=== PATIENT | male | born 2000 | race Caucasian/White ===

== ENCOUNTER 2020-04-03 14:32 | Outpatient (REF) | payer OTHER, SELFPAY | END 2020-04-03 14:33 | disposition home or self-care (01) | LOC: HO.HMGCLDS 14:32 | PROVIDERS: PCP Physician Assistant; Visit Provider Internal Medicine | DX: Z20.828 Contact with and (suspected) exposure to other viral communicable diseases (principal) | CPT/HCPCS: C9803; U0003 ==

== ENCOUNTER 2020-04-18 08:23 | Inpatient (IN) | payer OTHER, SELFPAY ==
[2020-04-18 08:55] VITALS: BP 175/64; BP 175/65; PULSE 92; RESP 19; TEMP 36.5; O2SAT 97; BMI 32.5
--- NOTE | 2020-04-18 08:56 | ED_ITS ---
HPI - Psych General Chief Complaint: Psychiatric Symptoms Stated Complaint: phsyc Time Seen by Provider: 04/18/20 08:51 History of Present Illness HPI Narrative: Patient is a 20-year-old male. Presented today after feeling manic. Patient claims that he cannot calm himself down. Claims that when he goes to the mall every gross looking at him. Patient denies any suicidal homicidal ideation. Patient denies any recreational drugs. Been on lithium and Lamictal. Patient was taken off from it. He restarted taking his lithium last night at 600 mg. Denies any focal weakness. No alcohol. From home. Related Data Home Medications Medication Instructions Recorded Confirmed cholecalciferol (vitamin D3) 1 cap PO DAILY 04/18/20 04/18/20 lamotrigine 1 tab PO BID 04/18/20 04/18/20 lithium carbonate 1 cap PO BID 04/18/20 04/18/20 oxcarbazepine 1 tab PO BID 04/18/20 04/18/20 Allergies Allergy/AdvReac Type Severity Reaction Status Date / Time No Known Allergies Allergy Unverified 02/08/20 16:41 [No Known Allergies*] Review of Systems Review of Systems: Constitutional: No Weight loss, No Fever, No Chills, No Night Sweats, No Fatigue, No Malaise ENT/Mouth: No Hearing loss, No Ear Pain, No Nasal Congestion, No Sinus Pain, No Hoarseness, No sore throat, No Rhinorrhea, No Swallowing Difficulty Eyes: No Eye Pain, No Swelling, No Redness, No Foreign Body, No Discharge, No Vision Changes Cardiovascular: No Chest Pain, No SOB, No Dyspnea on Exertion, No Orthopnea, No Edema, No Palpitations Respiratory: No Cough, No Sputum, No Wheezing, No Smoke Exposure, No Dyspnea Gastrointestinal: No Nausea, No Vomiting, No Diarrhea, No Constipation, No abdominal Pain, No Hematochezia, No Melena Genitourinary: no irregular bleeding, No Dysuria, No Urinary Frequency, No Hematuria, No Urinary Incontinence, No Urgency, No Flank Pain, No Urinary Flow Changes, No Hesitancy Musculoskeletal: No joint pain, No Myalgias, No Joint Swelling Skin: No Skin Lesions, No rash Neuro: No Weakness, No Numbness, No Paresthesias, No Loss of Consciousness, No Dizziness, No Headache Psych: No Anxiety/Panic, No Depression, No SI/HI/AH/VH, No Social Issues, Heme/Lymph: No Bruising, No Bleeding,No Lymphadenopathy Endocrine: No Polyuria, No Polydipsia, No Temperature Intolerance [facility] Social History Social History Alcohol intake: unknown Smoking Status: Unknown if ever smoked Use of substances other than those prescribed or required for medical reasons: Unknown Advance Directives: No Advance Directives Information Provided: Yes Physical Exam Vital Signs: Vital Signs: Last Vital Signs Temp 97.9 F 04/18/20 09:14 Pulse 81 04/18/20 09:14 Resp 18 04/18/20 09:14 BP 112/73 04/18/20 09:14 Pulse Ox 98 04/18/20 09:14 Body Mass Index 32.5 Appearance: Alert. Oriented X3. No acute distress. Eyes: Pupils equal, round and reactive to light. ENT: Pharynx normal. Neck: Normal inspection. Neck supple. No lymph nodes noted. No crepitus CVS: Normal heart rate and rhythm. Pulses normal. Normal S1 and S2 Respiratory: No respiratory distress. Breath sounds normal. No Wheezing. No rales Abdomen: Soft and nontender. No rigidity. No distention. good BS x4 Skin: Skin warm and dry. Normal skin color. Normal skin turgor. Extremities: No lower extremity edema. Neurovascular intact to all extremities. No Lacerations. No Rash Neuro: Oriented X 3. No motor deficit. No sensory deficit. Moving all extermities. No slurred speech MDM - Psych MDM Narrative Medical decision making narrative: patient is seen by crisis. Will admit for further evaluation. Labs sent. Currently in stable condition. Restraints Face to Face Assessment: Face to Face Assessment: Current Situation: After assessment of the patient, a review of the pertinent medical record and a discussion with nursing staff, I feel the patient requires a restrain intervention. Reaction To: [] Medical Condition: [] Behavioral State: [] Continued Need: [] Lab Data Result diagrams: 04/18/20 09:45 04/18/20 09:45 Labs: Lab Results 04/18/20 04/18/20 04/18/20 Range/Units 09:45 09:45 09:45 WBC 10.5 (4.8-10.8) X10*3/uL RBC 5.48 (4.60-5.80) X10*6/uL Hgb 15.3 (14.0-18.0) g/dl Hct 46.6 (42-52) % MCV 85.0 (80-98) fL MCH 27.9 (27.0-33.0) pg MCHC 32.8 (31.0-36.0) g/dl RDW 12.8 (11.0-16.0) % Plt Count 259 (160-400) X10*3/uL MPV 11.8 (9.4-12.4) fL Immature Gran % (Auto) 0.3 (0.0-0.4) % Neut % (Auto) 69.2 (45-73) % Lymph % (Auto) 15.6 L (20-40) % [place] % (Auto) 13.4 H (2-11) % Eos % (Auto) 0.9 (0-4) % Baso % (Auto) 0.6 (0-2) % Lymph # (Auto) 1.6 (1.2-4.9) X10*3/uL [place] # (Auto) 1.4 H (0.1-1.2) X10*3/uL Eos # (Auto) 0.1 (0.0-0.4) X10*3/uL Baso # (Auto) 0.1 (0.0-0.2) X10*3/uL Abs Immat Gran (auto) 0.03 (0.00-0.03) X10*3/uL Absolute Neuts (auto) 7.3 (2.0-8.3) X10*3/uL Absolute Nucleated RBC 0.000 (0.0-0.012) X10*3/uL Nucleated RBC % (auto) 0.0 (0.0-0.2) /100WBC Sodium 139 (135-145) mmol/L Potassium 4.2 (3.3-5.1) mmol/l Chloride 107 (96-108) mmol/L Carbon Dioxide 22 (22-29) mmol/L Anion Gap 14 (12-20) BUN 13 (9-16) mg/dL Creatinine 1.01 (0.5-1.4) mg/dL Estim Creat Clear Calc 146.2 Estimated GFR > 60 Random Glucose 113 (60-115) mg/dL Calcium 9.5 (8.4-10.2) mg/dL Total Bilirubin 0.5 (0.0-1.0) mg/dL AST 24 (5-37) U/L ALT 22 (0-40) U/L Alkaline Phosphatase 63 (39-117) U/L Total Protein 7.8 (6.5-8.0) g/dL Albumin 5.1 H (3.5-5.0) g/dL Home 0.17 L (0.60-1.20) mmol/L Ethyl Alcohol mg/dL 04/18/20 Range/Units 09:45 WBC (4.8-10.8) X10*3/uL RBC (4.60-5.80) X10*6/uL Hgb (14.0-18.0) g/dl Hct (42-52) % MCV (80-98) fL MCH (27.0-33.0) pg MCHC (31.0-36.0) g/dl RDW (11.0-16.0) % Plt Count (160-400) X10*3/uL MPV (9.4-12.4) fL Immature Gran % (Auto) (0.0-0.4) % Neut % (Auto) (45-73) % Lymph % (Auto) (20-40) % [place] % (Auto) (2-11) % Eos % (Auto) (0-4) % Baso % (Auto) (0-2) % Lymph # (Auto) (1.2-4.9) X10*3/uL [place] # (Auto) (0.1-1.2) X10*3/uL Eos # (Auto) (0.0-0.4) X10*3/uL Baso # (Auto) (0.0-0.2) X10*3/uL Abs Immat Gran (auto) (0.00-0.03) X10*3/uL Absolute Neuts (auto) (2.0-8.3) X10*3/uL Absolute Nucleated RBC (0.0-0.012) X10*3/uL Nucleated RBC % (auto) (0.0-0.2) /100WBC Sodium (135-145) mmol/L Potassium (3.3-5.1) mmol/l Chloride (96-108) mmol/L Carbon Dioxide (22-29) mmol/L Anion Gap (12-20) BUN (9-16) mg/dL Creatinine (0.5-1.4) mg/dL Estim Creat Clear Calc Estimated GFR Random Glucose (60-115) mg/dL Calcium (8.4-10.2) mg/dL Total Bilirubin (0.0-1.0) mg/dL AST (5-37) U/L ALT (0-40) U/L Alkaline Phosphatase (39-117) U/L Total Protein (6.5-8.0) g/dL Albumin (3.5-5.0) g/dL Home (0.60-1.20) mmol/L Ethyl Alcohol < 10 mg/dL Discharge Plan Discharge Clinical Impression: Bipolar disorder Patient Disposition: Home, Self-Care Prescriptions: No Action oxcarbazepine 300 mg tablet 1 tab PO BID RF: 0 lithium carbonate 300 mg capsule 1 cap PO BID RF: 0 cholecalciferol (vitamin D3) 125 mcg (5,000 unit) capsule 1 cap PO DAILY RF: 0 lamotrigine 100 mg tablet 1 tab PO BID RF: 0
[2020-04-18 09:14] VITALS: BP 112/73; PULSE 81; RESP 18; TEMP 36.6; O2SAT 98
[2020-04-18] MEDS: LORazepam 1 MG TABLET PO (09:27)
[2020-04-18 09:59] LABS: Basophils Absolute Auto 0.1 X10*3/uL (0.0-0.2); Basophils Percent Auto 0.6 % (0-2); Eosinophils Absolute Auto 0.1 X10*3/uL (0.0-0.4); Eosinophils Percent Auto 0.9 % (0-4); Hematocrit 46.6 % (42-52); Hemoglobin 15.3 g/dl (14.0-18.0); Imm Gran Abs Auto 0.03 X10*3/uL (0.00-0.03); Imm Gran Pct Auto 0.3 % (0.0-0.4); Lymphocytes Absolute Auto 1.6 X10*3/uL (1.2-4.9); Lymphocytes Percent Auto 15.6 % (20-40); MANUAL DIFF FLAG NO; Mean Corpuscular HGB Conc 32.8 g/dl (31.0-36.0); Mean Corpuscular Hemoglobin 27.9 pg (27.0-33.0); Mean Platelet Volume 11.8 fL (9.4-12.4); Monocytes Absolute Auto 1.4 X10*3/uL (0.1-1.2); Monocytes Percent Auto 13.4 % (2-11); Neutrophils Absolute Auto 7.3 X10*3/uL (2.0-8.3); Neutrophils Percent Auto 69.2 % (45-73); Platelet Count 259 X10*3/uL (160-400); Red Blood Count 5.48 X10*6/uL (4.60-5.80); Red Cell Distribution Width 12.8 % (11.0-16.0); White Blood Count 10.5 X10*3/uL (4.8-10.8)
[2020-04-18 10:20] LABS: Lithium 0.17 mmol/L (0.60-1.20)
[2020-04-18 10:22] LABS: Ethanol < 10 mg/dL
[2020-04-18 10:27] LABS: Alanine Aminotransferase 22 U/L (0-40); Albumin Level 5.1 g/dL (3.5-5.0); Alkaline Phosphatase 63 U/L (39-117); Anion Gap 14 (12-20); Aspartate Amino Transferase 24 U/L (5-37); Bilirubin Total 0.5 mg/dL (0.0-1.0); Blood Urea Nitrogen 13 mg/dL (9-16); Calcium 9.5 mg/dL (8.4-10.2); Carbon Dioxide 22 mmol/L (22-29); Chloride 107 mmol/L (96-108); Creatinine Clr Calc Pharmacy 146.2; Estimated Glomerular Filt Rate > 60; Glucose Random 113 mg/dL (60-115); Potassium 4.2 mmol/l (3.3-5.1); Sodium 139 mmol/L (135-145); Total Protein 7.8 g/dL (6.5-8.0)
--- NOTE | 2020-04-18 11:11 | PC.NURSE ---
[facility] faxed and called, stated they will not have a clinician for a while, care team notified.
--- NOTE | 2020-04-18 12:29 | MHC.CARE ---
CARE Team met with patient who self presented to the ED with increased giuliana, inpatient psychiatric care is recommended and patient is in agreement. ED providers updated.
[2020-04-18 15:40] LABS: Amphetamine Screen Urine Not Detected (Not Detect); Barbiturates, Urine Not Detected (Not Detect); Benzodiazepines Screen Urine Not Detected (Not Detect); Cannabinoid Screen Urine Not Detected (Not Detect); Cocaine Screen Urine Not Detected (Not Detect); Opiate Screen Urine Not Detected (Not Detect); Phencyclidine Screen Urine Not Detected (Not Detect)
[2020-04-18 16:30] LABS: COVID-19 Test Negative (Negative); IDNOW Serial# 9DD0AD1C
--- NOTE | 2020-04-18 16:32 | PC.NURSE ---
PT calm and cooperative, hyperverbal at times. Pt stating that he wants to get help now before gets as bad as last time . Pt pleasant in conversation, grandiose at times, tangential.
[2020-04-18 17:27] VITALS: BP 123/68; PULSE 66; RESP 20; TEMP 37.1; O2SAT 98
--- NOTE | 2020-04-18 17:50 | PC.NURSE ---
Pt continues calm and cooperative, states he came in today because he needed someone to talk to before chasing the rabbit and ending up here anyway even worse . Pt stating that he wants to get help before he gets worse. Pt understands plan of care as inpatient bedsearch, states he just doesn't want to be put on too many meds and wants help.
--- NOTE | 2020-04-18 19:07 | MHC.CARE ---
Bedsearch Note: CARE team consulted [facility] Access website to determine bed availability for inpt psychiatric admissions and contacted hospitals which indicated that they had open beds at some point throughout today within a 50mile radius. There are no beds available at external facilities. There is a bed available on [facility], however due to unit acuity and pt's hx during previous admissions, it was relayed to CARE team that a larger discussion will need to take place in order to finalize a plan of care. At this time, pt will remain in ED awaiting facility acceptance, bedsearch will be continued tomorrow. Pt is aware that he will not be admitted to any facilities this evening and continues to express that he is help-seeking and demonstrating awareness of how he has decompensated in the past compared to his current presentation.
--- NOTE | 2020-04-18 19:08 | PC.NURSE ---
Patient out of room, wandering in POD, mood pleasant, affect congruent to mood, denied distress, will continue to monitor.
[2020-04-18] MEDS: Lithium Carbonate 300 MG CAPSULE PO (20:06)
[2020-04-18] MEDS: OXcarbazepine 300 MG TABLET PO (20:06)
[2020-04-18] MEDS: lamoTRIgine 100 MG TABLET PO (20:06)
--- NOTE | 2020-04-18 20:32 | PC.NURSE ---
Patient compliant with his HS PO medication, currently on phone talking to his brother, patient coherent, intact thought process, but hyper-verbal, denied distress, will continue to monitor.
[2020-04-18 21:30] VITALS: BP 146/59; PULSE 75; RESP 20; TEMP 36.4; O2SAT 96
[2020-04-18] MEDS: LORazepam 1 MG TABLET 2 MG PO (21:40)
--- NOTE | 2020-04-18 21:43 | PC.NURSE ---
Patient hyper active, restless, provider notified/ordered Ativan 2 mg/administered as ordered/pending effect, will continue to monitor.
--- NOTE | 2020-04-18 22:06 | PC.NURSE ---
Patient extremely restless/energetic, provided headphone with music to calm down, observed jumping on his bed, dancing, exercising, moving mattress here and there, when asked how he is doing, answered with his thumps up. Will continue to monitor.
[2020-04-18] MEDS: LORazepam 2 MG/ML VIAL IM (22:27)
--- NOTE | 2020-04-18 22:29 | PC.NURSE ---
Patient requested for stronger medication to control his anger and energy before it gets worse, provider notified patient's behavior, medication request, and Hx of being unpredictable, violent, and psychotic. Provider ordered Ativan 2 mg IM/administered as ordered/patient accepted in [facility], will continue to monitor.
--- NOTE | 2020-04-18 23:29 | MHC.CARE ---
Pt's mother returned CARE team phone call from earlier today by clinician that evaluated pt. Pt's mother shared that her primary concern is pt's onset of grandiosity over the past week or so. Pt's mother reported that pt's psychiatrist had been tapering pt off [place], being completed off the medication over 2 weeks ago. When the psychiatrist spoke with pt's mother, she reported that the psychiatrist said that they may not have caught it in time with regards to the onset of a manic episode, despite reintroducing the medication at a lower dose to attempt to stabilize pt's mood. Pt's mother reported that, as far as she knows, pt has been consistent with his therapy sessions and has been compliant with his medications as prescribed and works well with both his therapist and his psychiatrist, and had been doing great prior to initial signs of decompensation.
--- NOTE | 2020-04-19 07:55 | PC.NURSE ---
Late entry for 729. Pt awake, alert, eating breakfast. Currently awake, showered. Pt pressured, self aware that his thinking is at times distorted, states he 'wants to talk to someone.' M Justino in to speak w/ pt.
[2020-04-19] MEDS: OXcarbazepine 300 MG TABLET PO ×2 (08:16→20:18)
[2020-04-19] MEDS: lamoTRIgine 100 MG TABLET PO ×2 (08:16→20:17)
[2020-04-19] MEDS: Lithium Carbonate 300 MG CAPSULE PO ×2 (08:17→13:18)
--- NOTE | 2020-04-19 08:31 | PC.NURSE ---
Pt continues to be pressured, pleasant. Accepted medications, easily redirected.
[2020-04-19] MEDS: diazePAM 5 MG TABLET 10 MG PO (09:04)
--- NOTE | 2020-04-19 09:08 | PC.NURSE ---
Pt requesting medication to help him calm down. Reviewed w/ provider, and pt. Pt medicated as ordered.
[2020-04-19 09:09] VITALS: BP 142/67; PULSE 87; TEMP 36.6; O2SAT 97
--- NOTE | 2020-04-19 09:36 | PC.NURSE ---
Pt continues to be pressured, but pleasant, redirectable. Listening to music on headphones, dancing at times.
[2020-04-19 10:00] VITALS: RESP 18
--- NOTE | 2020-04-19 10:46 | PC.NURSE ---
Pt continues to be hyperverbal, grandiose, but less intensely. Eating sandwich, listening to music on headphones.
[2020-04-19] MEDS: Cholecalciferol (Vitamin D3) 25 MCG TABLET 125 MCG PO (10:58)
--- NOTE | 2020-04-19 11:01 | PC.NURSE ---
care team in to transport pt to m5. m5 called to complete nurse to nurse
--- NOTE | 2020-04-19 11:05 | PC.NURSE ---
Care team in, transferred pt to with security. Pt ate snack prior to leaving. Is aware that he will be going to and in agreement w/ plan. No concerns reported as he left.
[2020-04-19] MEDS: LORazepam 1 MG TABLET 2 MG PO (13:19)
[2020-04-19] MEDS: HaloperidoL 5 MG TABLET PO ×2 (13:20→22:53)
--- NOTE | 2020-04-19 13:57 | MHC.CARE ---
Inpatient Authorization: [facility] Auth # [id number] 5 Days - 04/24/20
--- NOTE | 2020-04-19 17:09 | PCS.ADM ---
Pt is a 20 year old male, who self-presented to the ED, reported he has been off LIthium for three weeks and is experiencing increased symptoms of giuliana and is seeking treatment-midication and inpatient psychiatric admission. He has history of decompensating to the point of psychosis, property destruction,physical aggression and combativness needing chemical and physical restraints. Pt has required lengthy psychiatric admissions with multidisciplinary interventions to return to baseline. At this time he is aware that he is heading in that direction and wants to avoid putting himselg, others and his future at risk. Pt is presenting as expansive, euphoric, grandiose, loud. Pt at this time is not aggressive. Pt arrived on M5 at 12:30. Pt tired from med administration of 5 mg Haldol ,2mg Ativan, and 300mg of [place] at 1400. Pt sleeping presently. Pt denies HI/SI. Pt delusional, preoccupied. Pt familar with the unit and staff. Pt is a conditional voluntary.
[2020-04-19 18:00] VITALS: BP 157/67; PULSE 86; TEMP 36.7
--- NOTE | 2020-04-19 18:48 | P.HPPS_ITS ---
HPI Chief Complaint: bipolar disorder Sources of Information: patient interviewed, chart reviewed and crisis/core team assessment reviewed HPI Narrative: 20 year old man who was referred for admission by CARE team due to increasing giuliana. He self presented. This is the patient's fourth admission to and first this year. He carries the diagnosis of bipolar disorder and when manic can become agitated and aggressive. Gino reports that he has been working with his outpatient psychiatrist, Shamir Daily, to lower his Li over the last several months. It was discontinued about three weeks ago and since this time Gino has been increasingly pressured, grandiose, expansive and euphoric. He presented to the ER for assistance since he was concerned that he was getting manic and wanted to try to head it off at the pass. On arrival Gino was loud and pressured. He spoke about his potential to make millions in the matter of a few hours, his magnetic attractiveness to women and the amazing promotion he has just had at his new job. He was pacing up and down the halls, but did respond to redirection. Past Psychiatric History: 3 admissions to Required iv ketamine during one stay due to his giuliana. Shamir Daily is his outpatient psychiatrist Rosendo Bains is his therapist He has been on multiple medications in the past including depakote, abilify, latuda, and Li PMFSH Family History: Family history is significant for bipolar disorder and alcohol use disorder Social History: Lives with his mother Substance History: Denies Trauma History: Denies Diagnostics Vital Signs (24Hr): Vital Signs - 24 hr 04/18/20 21:30 04/19/20 09:09 04/19/20 10:00 Temperature 97.6 F 97.8 F Pulse Rate 75 87 Respiratory Rate 20 18 Blood Pressure 146/59 H 142/67 H Pulse Oximetry 96 97 Body Mass Index 32.5 Labs Results: 04/18/20 09:45 04/18/20 09:45 Labs: Laboratory Results - last 48 hr 04/18/20 04/18/20 04/18/20 09:45 09:45 09:45 WBC 10.5 RBC 5.48 Hgb 15.3 Hct 46.6 MCV 85.0 MCH 27.9 MCHC 32.8 RDW 12.8 Plt Count 259 MPV 11.8 Immature Gran % (Auto) 0.3 Neut % (Auto) 69.2 Lymph % (Auto) 15.6 L [place] % (Auto) 13.4 H Eos % (Auto) 0.9 Baso % (Auto) 0.6 Lymph # (Auto) 1.6 [place] # (Auto) 1.4 H Eos # (Auto) 0.1 Baso # (Auto) 0.1 Abs Immat Gran (auto) 0.03 Absolute Neuts (auto) 7.3 Absolute Nucleated RBC 0.000 Nucleated RBC % (auto) 0.0 Sodium 139 Potassium 4.2 Chloride 107 Carbon Dioxide 22 Anion Gap 14 BUN 13 Creatinine 1.01 Estim Creat Clear Calc 146.2 Estimated GFR > 60 Random Glucose 113 Calcium 9.5 Total Bilirubin 0.5 AST 24 ALT 22 Alkaline Phosphatase 63 Total Protein 7.8 Albumin 5.1 H Urine Opiates Screen Ur Barbiturates Screen Ur Phencyclidine Scrn Ur Amphetamines Screen U Benzodiazepines Scrn [place] 0.17 L Urine Cocaine Screen U Marijuana (THC) Screen Ethyl Alcohol COVID-19 (KELVIN) COVID-Venustech 04/18/20 04/18/20 04/18/20 09:45 15:10 16:08 WBC RBC Hgb Hct MCV MCH MCHC RDW Plt Count MPV Immature Gran % (Auto) Neut % (Auto) Lymph % (Auto) [place] % (Auto) Eos % (Auto) Baso % (Auto) Lymph # (Auto) [place] # (Auto) Eos # (Auto) Baso # (Auto) Abs Immat Gran (auto) Absolute Neuts (auto) Absolute Nucleated RBC Nucleated RBC % (auto) Sodium Potassium Chloride Carbon Dioxide Anion Gap BUN Creatinine Estim Creat Clear Calc Estimated GFR Random Glucose Calcium Total Bilirubin AST ALT Alkaline Phosphatase Total Protein Albumin Urine Opiates Screen Not Detected Ur Barbiturates Screen Not Detected Ur Phencyclidine Scrn Not Detected Ur Amphetamines Screen Not Detected U Benzodiazepines Scrn Not Detected [place] Urine Cocaine Screen Not Detected U Marijuana (THC) Screen Not Detected Ethyl Alcohol < 10 COVID-19 (KELVIN) Negative COVID-Venustech See Note Meds/Allergies Meds Home Medications Benztropine Mesylate (Benztropine Mesylate 1 Mg Tablet) 1 mg PO RQ4H PRN PRN Reason: Extrapyramidal Effects Chlorpromazine HCl (Chlorpromazine Hcl 100 Mg Tablet) 100 mg PO RQ4H PRN PRN Reason: Agitation Haloperidol (Haloperidol 5 Mg Tablet) 5 mg PO RQ4H PRN PRN Reason: Agtation Last Admin: 04/19/20 13:20 Dose: 5 mg Documented by: Lamotrigine (Lamotrigine 100 Mg Tablet) 100 mg PO BID [facility] Last Admin: 04/19/20 08:16 Dose: 100 mg Documented by: [place] Carbonate ([place] Carbonate 300 Mg Capsule) 600 mg PO BID [facility] Lorazepam (Lorazepam 1 Mg Tablet) 2 mg PO Q4H PRN PRN Reason: anxiety/restlessness Last Admin: 04/19/20 13:19 Dose: 2 mg Documented by: Oxcarbazepine (Oxcarbazepine 300 Mg Tablet) 300 mg PO BID [facility] Last Admin: 04/19/20 08:16 Dose: 300 mg Documented by: Vitamin D (Cholecalciferol (Vitamin D3) 25 Mcg Tablet) 125 mcg PO DAILY [facility] Last Admin: 04/19/20 10:58 Dose: 125 mcg Documented by: Allergies Allergies Allergy/AdvReac Type Severity Reaction Status Date / Time No Known Allergies Allergy Verified 04/18/20 19:35 [No Known Allergies*] Mental Status Exam Mental Status Exam Patient Orientation: Person, Place, Time and Situation Level of Consciousness: Appropriate and Restless Patient Behavior: Talkative, Hyperactive, Restless and Distractible Mood Description: Euphoric and Expansive Affect Description: Expansive Speech Pattern: Spontaneous Speech, Rapid and Pressured Hallucinations: None Delusions: Grandiose Thought Process: Racing Thought Content: positive for Preoccupation, negative for Suicidal Ideation and negative for Homicidal Ideation Abnormal Motor Activity Signs and Symptoms: Hyperactivity Judgement: Fair Assessment & Plan Assessment & Plan (1) Bipolar disorder: Status: Acute Qualifiers: Active/Remission status: currently active Current bipolar episode type: manic Current episode severity: severe Psychotic features: without psychotic features Qualified Code(s): F31.13 - Bipolar disorder, current episode manic without psychotic features, severe Code(s): F31.9 - Bipolar disorder, unspecified Assessment and Plan: Increase [place] other medications without change CV 15 Collect collateral history Patient educated on: diagnosis and medication risk/benefits Informed Consent: further education needed Reason for continued inpatient stay Substantial Risk for: harm to others, inability to function and rapid decompensation
[2020-04-19] MEDS: Lithium Carbonate 300 MG CAPSULE 600 MG PO (20:17)
[2020-04-19] MEDS: chlorproMAZINE HCl 100 MG TABLET PO (20:18)
[2020-04-19] MEDS: Benztropine Mesylate 1 MG TABLET PO (22:53)
[2020-04-20] MEDS: chlorproMAZINE HCl 100 MG TABLET PO ×2 (00:17→18:11)
--- NOTE | 2020-04-20 03:24 | MHC.CARE ---
Pt asked to speak with this fiction and nonfiction writer prose in private. Pt was heavily sedated, unable to keep his eyes open, and was unsteady on his feet. Pt was given a sandwich and was attempting to eat it during conversation. Pt reported that he has been seeing and hearing things that are upsetting. Pt stated that he is seeing a lot of people he doesn't know and is hearing screaming sounds, and that he is afraid to go to sleep even though he is exhausted. Pt asked if he could have someone sit outside his room, which he said would make him feel safer. This fiction and nonfiction writer prose relayed the information to the unit charge nurse and encouraged pt to speak with staff and psychiatry in the morning.
[2020-04-20 05:05] VITALS: BP 127/65; PULSE 100; RESP 18; TEMP 36.3; O2SAT 96
[2020-04-20] MEDS: OXcarbazepine 300 MG TABLET PO ×2 (07:34→20:09)
[2020-04-20] MEDS: lamoTRIgine 100 MG TABLET PO ×2 (07:34→20:08)
[2020-04-20] MEDS: Cholecalciferol (Vitamin D3) 25 MCG TABLET 125 MCG PO (07:34)
[2020-04-20] MEDS: Lithium Carbonate 300 MG CAPSULE 600 MG PO ×2 (07:34→20:09)
[2020-04-20] MEDS: HaloperidoL 5 MG TABLET PO ×2 (13:30→16:26)
[2020-04-20] MEDS: Benztropine Mesylate 1 MG TABLET PO ×2 (13:30→16:26)
--- NOTE | 2020-04-20 13:41 | HO.PSYCHPN ---
Subjective Subjective Date of Service: 04/20/20 Reason For Visit: bipolar disorder Subjective Notes: Conditional Voluntary Interim History: Gino was pressured and loud, and at the same time sedated, with his eyes half closed. He has thus far been in behavioral control. Medication Compliance: Yes Side effects from medications: Yes (sedation) Attending Groups: No Review of Systems Acute medical concerns: No Medical Review of Systems: unchanged Mental Status Exam Mental Status Exam Patient Orientation: Person, Place, Time and Situation Level of Consciousness: Appropriate and Restless Patient Behavior: Talkative, Hyperactive, Restless and Distractible Mood Description: Euphoric and Expansive Affect Description: Expansive Speech Pattern: Spontaneous Speech, Rapid and Pressured Hallucinations: None Delusions: Grandiose Thought Process: Racing Thought Content: positive for Preoccupation, negative for Suicidal Ideation and negative for Homicidal Ideation Abnormal Motor Activity Signs and Symptoms: Hyperactivity Judgement: Fair Diagnostics Vital Signs (24Hr): Vital Signs - 24 hr 04/19/20 18:00 04/20/20 05:05 Temperature 98.1 F 97.3 F Pulse Rate 86 100 Respiratory Rate 18 Blood Pressure 157/67 H 127/65 Pulse Oximetry 96 Body Mass Index 32.5 Labs Results: 04/18/20 09:45 04/18/20 09:45 Labs: Laboratory Results - last 48 hr 04/18/20 04/18/20 15:10 16:08 Urine Opiates Screen Not Detected Ur Barbiturates Screen Not Detected Ur Phencyclidine Scrn Not Detected Ur Amphetamines Screen Not Detected U Benzodiazepines Scrn Not Detected Urine Cocaine Screen Not Detected U Marijuana (THC) Screen Not Detected COVID-19 ([facility]) Negative COVID-19 Clin Com See Note Medications Medications Current Medications Generic Name Dose Route Start Last Admin Trade Name Freq PRN Reason Stop Dose Admin Benztropine Mesylate 1 mg 04/19/20 12:14 04/20/20 13:30 Benztropine Mesylate 1 Mg Tablet PO 1 mg RQ4H PRN Administration Extrapyramidal Effects Chlorpromazine HCl 100 mg 04/19/20 12:27 04/20/20 00:17 Chlorpromazine Hcl 100 Mg Tablet PO 100 mg RQ4H PRN Administration Agitation Haloperidol 5 mg 04/19/20 12:11 04/20/20 13:30 Haloperidol 5 Mg Tablet PO 5 mg RQ4H PRN Administration Agtation Lamotrigine 100 mg 04/18/20 21:00 04/20/20 07:34 Lamotrigine 100 Mg Tablet PO 100 mg BID YANI Administration [place] Carbonate 600 mg 04/19/20 21:00 04/20/20 07:34 [place] Carbonate 300 Mg Capsule PO 600 mg BID YANI Administration Lorazepam 1 mg 04/20/20 09:33 Lorazepam 1 Mg Tablet PO Q4H PRN anxiety/restlessness Oxcarbazepine 300 mg 04/18/20 21:00 04/20/20 07:34 Oxcarbazepine 300 Mg Tablet PO 300 mg BID YANI Administration Vitamin D 125 mcg 04/19/20 09:00 04/20/20 07:34 Cholecalciferol (Vitamin D3) 25 Mcg Tablet PO 125 mcg DAILY YANI Administration Allergies Allergies Allergy/AdvReac Type Severity Reaction Status Date / Time No Known Allergies Allergy Verified 04/18/20 19:35 [No Known Allergies*] Assessment & Plan Assessment & Plan (1) Bipolar disorder: Qualifiers: Active/Remission status: currently active Current bipolar episode type: manic Current episode severity: severe Psychotic features: without psychotic features Qualified Code(s): F31.13 - Bipolar disorder, current episode manic without psychotic features, severe Status: Acute Code(s): F31.9 - Bipolar disorder, unspecified Assessment and Plan: Continue current treatment plan Greater than 50% of the session was spent on counseling and/or coordination of care Patient educated on: diagnosis and medication risk/benefits Informed Consent: does not understand Reason for contiued inpatient stay Substantial Risk for: inability to function and rapid decompensation
[2020-04-20 18:00] VITALS: BP 114/84; PULSE 106; TEMP 36.2
[2020-04-20] MEDS: LORazepam 1 MG TABLET PO (20:08)
[2020-04-21] MEDS: LORazepam 1 MG TABLET PO (01:12)
[2020-04-21] MEDS: chlorproMAZINE HCl 100 MG TABLET PO ×2 (04:08→18:24)
[2020-04-21 07:58] LABS: Lithium 0.24 mmol/L (0.60-1.20)
[2020-04-21 08:29] VITALS: BP 140/64; PULSE 86; RESP 16; TEMP 37.2; O2SAT 97
[2020-04-21] MEDS: Cholecalciferol (Vitamin D3) 25 MCG TABLET 125 MCG PO (08:32)
[2020-04-21] MEDS: lamoTRIgine 100 MG TABLET PO ×2 (08:32→20:13)
[2020-04-21] MEDS: Lithium Carbonate 300 MG CAPSULE 600 MG PO ×2 (08:32→20:12)
[2020-04-21] MEDS: OXcarbazepine 300 MG TABLET PO ×2 (08:32→20:13)
[2020-04-21] MEDS: Benztropine Mesylate 1 MG TABLET PO ×2 (11:02→16:49)
[2020-04-21] MEDS: HaloperidoL 5 MG TABLET PO ×2 (11:03→16:49)
--- NOTE | 2020-04-21 15:24 | P.PNPSI_ITS ---
Subjective Subjective Date of Service: 04/21/20 Reason For Visit: bipolar disorder Subjective Notes: Conditional Voluntary Interim History: Gino was somewhat calmer today. He does walk with his eyes half closed but he is able to engage He was less grandiose than he had been. Medication Compliance: Yes Side effects from medications: No Attending Groups: Intermittent Review of Systems Acute medical concerns: No Medical Review of Systems: unchanged Mental Status Exam Mental Status Exam Patient Orientation: Person, Place, Time and Situation Level of Consciousness: Appropriate and Restless Patient Behavior: Talkative, Hyperactive, Restless and Distractible Mood Description: Euphoric and Expansive Affect Description: Expansive Speech Pattern: Spontaneous Speech, Rapid and Pressured Hallucinations: None Delusions: Grandiose Thought Process: Racing Thought Content: positive for Preoccupation, negative for Suicidal Ideation and negative for Homicidal Ideation Abnormal Motor Activity Signs and Symptoms: Hyperactivity Judgement: Fair Diagnostics Vital Signs (24Hr): Vital Signs - 24 hr 04/20/20 18:00 04/21/20 08:29 Temperature 97.2 F 98.9 F Pulse Rate 106 H 86 Respiratory Rate 16 Blood Pressure 114/84 140/64 H Pulse Oximetry 97 Body Mass Index 32.5 Labs Results: 04/18/20 09:45 04/18/20 09:45 Labs: Laboratory Results - last 48 hr 04/21/20 07:22 [place] 0.24 L Medications Medications Current Medications Generic Name Dose Route Start Last Admin Trade Name Freq PRN Reason Stop Dose Admin Benztropine Mesylate 1 mg 04/19/20 12:14 04/21/20 11:02 Benztropine Mesylate 1 Mg Tablet PO 1 mg RQ4H PRN Administration Extrapyramidal Effects Chlorpromazine HCl 100 mg 04/19/20 12:27 04/21/20 04:08 Chlorpromazine Hcl 100 Mg Tablet PO 100 mg RQ4H PRN Administration Agitation Haloperidol 5 mg 04/19/20 12:11 04/21/20 11:03 Haloperidol 5 Mg Tablet PO 5 mg RQ4H PRN Administration Agtation Lamotrigine 100 mg 04/18/20 21:00 04/21/20 08:32 Lamotrigine 100 Mg Tablet PO 100 mg BID YANI Administration [place] Carbonate 600 mg 04/19/20 21:00 04/21/20 08:32 [place] Carbonate 300 Mg Capsule PO 600 mg BID YANI Administration Lorazepam 1 mg 04/20/20 09:33 04/21/20 01:12 Lorazepam 1 Mg Tablet PO 1 mg Q4H PRN Administration anxiety/restlessness Oxcarbazepine 300 mg 04/18/20 21:00 04/21/20 08:32 Oxcarbazepine 300 Mg Tablet PO 300 mg BID YANI Administration Vitamin D 125 mcg 04/19/20 09:00 04/21/20 08:32 Cholecalciferol (Vitamin D3) 25 Mcg Tablet PO 125 mcg DAILY YANI Administration Allergies Allergies Allergy/AdvReac Type Severity Reaction Status Date / Time No Known Allergies Allergy Verified 04/18/20 19:35 [No Known Allergies*] Assessment & Plan Assessment & Plan (1) Bipolar disorder: Qualifiers: Active/Remission status: currently active Current bipolar episode type: manic Current episode severity: severe Psychotic features: without psychotic features Qualified Code(s): F31.13 - Bipolar disorder, current episode manic without psychotic features, severe Status: Acute Code(s): F31.9 - Bipolar disorder, unspecified Assessment and Plan: CT current plan Greater than 50% of the session was spent on counseling and/or coordination of care Patient educated on: diagnosis and medication risk/benefits Informed Consent: further education needed Reason for contiued inpatient stay Substantial Risk for: rapid decompensation
[2020-04-21 18:00] VITALS: BP 148/67; PULSE 110; TEMP 37.1
[2020-04-22] MEDS: chlorproMAZINE HCl 100 MG TABLET PO ×3 (02:17→20:06)
[2020-04-22 03:55] VITALS: BP 142/62; PULSE 99; RESP 18; TEMP 36.7; O2SAT 98
[2020-04-22] MEDS: Cholecalciferol (Vitamin D3) 25 MCG TABLET 125 MCG PO (09:12)
[2020-04-22] MEDS: Lithium Carbonate 300 MG CAPSULE 600 MG PO ×2 (09:13→20:06)
[2020-04-22] MEDS: OXcarbazepine 300 MG TABLET PO ×2 (09:14→20:06)
[2020-04-22] MEDS: lamoTRIgine 100 MG TABLET PO ×2 (09:14→20:06)
--- NOTE | 2020-04-22 09:32 | P.PNPSI_ITS ---
Subjective Subjective Date of Service: 04/22/20 Reason For Visit: bipolar disorder Subjective Notes: Conditional Voluntary Interim History: Gino has been calmer and more organized. He has asked for prns to be scheduled. He has been in behavioral control. Medication Compliance: Yes Side effects from medications: No Attending Groups: Intermittent Review of Systems Acute medical concerns: No Medical Review of Systems: unchanged Mental Status Exam Mental Status Exam Patient Orientation: Person, Place, Time and Situation Level of Consciousness: Appropriate and Restless Patient Behavior: Talkative, Hyperactive, Restless and Distractible Mood Description: Calm and Expansive Affect Description: Calm, Relaxed and Expansive Ability to Follow Directions: Good Speech Pattern: Spontaneous Speech, Rapid and Pressured Hallucinations: None Delusions: Grandiose Thought Process: Racing Thought Content: positive for Preoccupation, negative for Suicidal Ideation and negative for Homicidal Ideation Abnormal Motor Activity Signs and Symptoms: Hyperactivity Judgement: Fair Diagnostics Vital Signs (24Hr): Vital Signs - 24 hr 04/21/20 18:00 04/22/20 03:55 Temperature 98.7 F 98.0 F Pulse Rate 110 H 99 Respiratory Rate 18 Blood Pressure 148/67 H 142/62 H Pulse Oximetry 98 Body Mass Index 32.5 Labs Results: 04/18/20 09:45 04/18/20 09:45 Labs: Laboratory Results - last 48 hr 04/21/20 07:22 [place] 0.24 L Medications Medications Current Medications Generic Name Dose Route Start Last Admin Trade Name Freq PRN Reason Stop Dose Admin Benztropine Mesylate 1 mg 04/19/20 12:14 04/21/20 16:49 Benztropine Mesylate 1 Mg Tablet PO 1 mg RQ4H PRN Administration Extrapyramidal Effects Chlorpromazine HCl 100 mg 04/19/20 12:27 04/22/20 02:17 Chlorpromazine Hcl 100 Mg Tablet PO 100 mg RQ4H PRN Administration Agitation Haloperidol 5 mg 04/19/20 12:11 04/21/20 16:49 Haloperidol 5 Mg Tablet PO 5 mg RQ4H PRN Administration Agtation Lamotrigine 100 mg 04/18/20 21:00 04/22/20 09:14 Lamotrigine 100 Mg Tablet PO 100 mg BID YANI Administration [place] Carbonate 600 mg 04/19/20 21:00 04/22/20 09:13 [place] Carbonate 300 Mg Capsule PO 600 mg BID YANI Administration Lorazepam 1 mg 04/20/20 09:33 04/21/20 01:12 Lorazepam 1 Mg Tablet PO 1 mg Q4H PRN Administration anxiety/restlessness Oxcarbazepine 300 mg 04/18/20 21:00 04/22/20 09:14 Oxcarbazepine 300 Mg Tablet PO 300 mg BID YANI Administration Vitamin D 125 mcg 04/19/20 09:00 04/22/20 09:12 Cholecalciferol (Vitamin D3) 25 Mcg Tablet PO 125 mcg DAILY YANI Administration Allergies Allergies Allergy/AdvReac Type Severity Reaction Status Date / Time No Known Allergies Allergy Verified 04/18/20 19:35 [No Known Allergies*] Assessment & Plan Assessment & Plan (1) Bipolar disorder: Qualifiers: Active/Remission status: currently active Current bipolar episode type: manic Current episode severity: severe Psychotic features: without psychotic features Qualified Code(s): F31.13 - Bipolar disorder, current episode manic without psychotic features, severe Status: Acute Code(s): F31.9 - Bipolar disorder, unspecified Assessment and Plan: Schedule haldol and thorazine CT current plan Greater than 50% of the session was spent on counseling and/or coordination of care Patient educated on: diagnosis and medication risk/benefits Informed Consent: further education needed Reason for contiued inpatient stay Substantial Risk for: rapid decompensation
[2020-04-22] MEDS: HaloperidoL 5 MG TABLET PO ×2 (11:25→16:17)
[2020-04-22 18:00] VITALS: BP 139/79; PULSE 114; TEMP 36.9
[2020-04-23] MEDS: chlorproMAZINE HCl 100 MG TABLET PO ×3 (01:59→20:26)
[2020-04-23 06:00] VITALS: BP 161/72; PULSE 106; TEMP 36.5
[2020-04-23] MEDS: Cholecalciferol (Vitamin D3) 25 MCG TABLET 125 MCG PO (08:29)
[2020-04-23] MEDS: Lithium Carbonate 300 MG CAPSULE 600 MG PO ×2 (08:33→20:26)
[2020-04-23] MEDS: lamoTRIgine 100 MG TABLET PO ×2 (08:34→20:27)
[2020-04-23] MEDS: OXcarbazepine 300 MG TABLET PO ×2 (08:34→20:27)
[2020-04-23] MEDS: HaloperidoL 5 MG TABLET PO ×3 (08:35→16:15)
--- NOTE | 2020-04-23 09:32 | HO.PSYCHPN ---
Subjective Subjective Date of Service: 04/23/20 Reason For Visit: bipolar disorder Subjective Notes: Conditional Voluntary Interim History: Gino has tolerated the addition of haldol and thorazine, without sedation. He is less grandiose, and he is able to be in behavioral control. Medication Compliance: Yes Side effects from medications: No Attending Groups: Intermittent Review of Systems Acute medical concerns: No Medical Review of Systems: unchanged Mental Status Exam Mental Status Exam Patient Appearance: Well Grooomed Patient Orientation: Person, Place, Time and Situation Level of Consciousness: Appropriate Patient Behavior: Talkative, Restless and Distractible Mood Description: Calm and Expansive Affect Description: Calm, Relaxed and Expansive Ability to Follow Directions: Good Speech Pattern: Spontaneous Speech, Rapid and Pressured Hallucinations: None Delusions: Grandiose Thought Process: Racing Thought Content: positive for Preoccupation, negative for Suicidal Ideation and negative for Homicidal Ideation Abnormal Motor Activity Signs and Symptoms: Hyperactivity Judgement: Fair Diagnostics Vital Signs (24Hr): Vital Signs - 24 hr 04/22/20 18:00 04/23/20 06:00 Temperature 98.5 F 97.7 F Pulse Rate 114 H 106 H Blood Pressure 139/79 161/72 H Body Mass Index 32.5 Labs Results: 04/18/20 09:45 04/18/20 09:45 Medications Medications Current Medications Generic Name Dose Route Start Last Admin Trade Name Freq PRN Reason Stop Dose Admin Benztropine Mesylate 1 mg 04/19/20 12:14 04/21/20 16:49 Benztropine Mesylate 1 Mg Tablet PO 1 mg RQ4H PRN Administration Extrapyramidal Effects Chlorpromazine HCl 100 mg 04/19/20 12:27 04/23/20 01:59 Chlorpromazine Hcl 100 Mg Tablet PO 100 mg RQ4H PRN Administration Agitation Chlorpromazine HCl 100 mg 04/22/20 21:00 04/22/20 20:06 Chlorpromazine Hcl 100 Mg Tablet PO 100 mg BEDTIME YANI Administration Haloperidol 5 mg 04/19/20 12:11 04/21/20 16:49 Haloperidol 5 Mg Tablet PO 5 mg RQ4H PRN Administration Agtation Haloperidol 5 mg 04/22/20 17:00 04/22/20 16:17 Haloperidol 5 Mg Tablet PO 5 mg DAILY@1700 YANI Administration Haloperidol 5 mg 04/22/20 10:30 04/23/20 08:35 Haloperidol 5 Mg Tablet PO 5 mg DAILY YANI Administration Lamotrigine 100 mg 04/18/20 21:00 04/23/20 08:34 Lamotrigine 100 Mg Tablet PO 100 mg BID YANI Administration [place] Carbonate 600 mg 04/19/20 21:00 04/23/20 08:33 [place] Carbonate 300 Mg Capsule PO 600 mg BID YANI Administration Lorazepam 1 mg 04/20/20 09:33 04/21/20 01:12 Lorazepam 1 Mg Tablet PO 1 mg Q4H PRN Administration anxiety/restlessness Oxcarbazepine 300 mg 04/18/20 21:00 04/23/20 08:34 Oxcarbazepine 300 Mg Tablet PO 300 mg BID YANI Administration Vitamin D 125 mcg 04/19/20 09:00 04/23/20 08:29 Cholecalciferol (Vitamin D3) 25 Mcg Tablet PO 125 mcg DAILY YANI Administration Allergies Allergies Allergy/AdvReac Type Severity Reaction Status Date / Time No Known Allergies Allergy Verified 04/18/20 19:35 [No Known Allergies*] Assessment & Plan Assessment & Plan (1) Bipolar disorder: Qualifiers: Active/Remission status: currently active Current bipolar episode type: manic Current episode severity: severe Psychotic features: without psychotic features Qualified Code(s): F31.13 - Bipolar disorder, current episode manic without psychotic features, severe Status: Acute Code(s): F31.9 - Bipolar disorder, unspecified Assessment and Plan: Continue current plan Greater than 50% of the session was spent on counseling and/or coordination of care Patient educated on: diagnosis and medication risk/benefits Informed Consent: further education needed Reason for contiued inpatient stay Substantial Risk for: rapid decompensation
[2020-04-23 18:00] VITALS: BP 144/67; PULSE 87; TEMP 36.5
[2020-04-24] MEDS: chlorproMAZINE HCl 100 MG TABLET PO ×2 (00:12→20:11)
[2020-04-24 06:50] VITALS: BP 139/66; PULSE 85; RESP 16; TEMP 36; O2SAT 98
[2020-04-24] MEDS: Cholecalciferol (Vitamin D3) 25 MCG TABLET 125 MCG PO (08:41)
[2020-04-24] MEDS: Lithium Carbonate 300 MG CAPSULE 600 MG PO ×2 (08:42→20:12)
[2020-04-24] MEDS: HaloperidoL 5 MG TABLET PO ×2 (08:43→17:29)
[2020-04-24] MEDS: lamoTRIgine 100 MG TABLET PO ×2 (08:43→20:12)
[2020-04-24] MEDS: OXcarbazepine 300 MG TABLET PO ×2 (09:21→20:12)
--- NOTE | 2020-04-24 09:34 | P.PNPSI_ITS ---
Subjective Subjective Date of Service: 04/24/20 Reason For Visit: bipolar disorder Subjective Notes: Conditional Voluntary Interim History: Gino was calm and cooperative. He slept well. He is pleased to be going home tomorrow Medication Compliance: Yes Side effects from medications: No Attending Groups: Yes Review of Systems Acute medical concerns: No Medical Review of Systems: unchanged Mental Status Exam Mental Status Exam Patient Appearance: Well Grooomed Patient Orientation: Person, Place, Time and Situation Level of Consciousness: Appropriate Patient Behavior: Talkative, Restless and Distractible Mood Description: Calm and Expansive Affect Description: Calm, Relaxed and Expansive Ability to Follow Directions: Good Speech Pattern: Spontaneous Speech, Rapid and Pressured Hallucinations: None Delusions: Grandiose Thought Process: Racing Thought Content: positive for Preoccupation, negative for Suicidal Ideation and negative for Homicidal Ideation Abnormal Motor Activity Signs and Symptoms: Hyperactivity Judgement: Fair Diagnostics Vital Signs (24Hr): Vital Signs - 24 hr 04/23/20 18:00 04/24/20 06:50 Temperature 97.7 F 96.8 F Pulse Rate 87 85 Respiratory Rate 16 Blood Pressure 144/67 H 139/66 Pulse Oximetry 98 Body Mass Index 32.5 Labs Results: 04/18/20 09:45 04/18/20 09:45 Medications Medications Current Medications Generic Name Dose Route Start Last Admin Trade Name Freq PRN Reason Stop Dose Admin Benztropine Mesylate 1 mg 04/19/20 12:14 04/21/20 16:49 Benztropine Mesylate 1 Mg Tablet PO 1 mg RQ4H PRN Administration Extrapyramidal Effects Chlorpromazine HCl 100 mg 04/19/20 12:27 04/24/20 00:12 Chlorpromazine Hcl 100 Mg Tablet PO 100 mg RQ4H PRN Administration Agitation Chlorpromazine HCl 100 mg 04/22/20 21:00 04/23/20 20:26 Chlorpromazine Hcl 100 Mg Tablet PO 100 mg BEDTIME YANI Administration Haloperidol 5 mg 04/19/20 12:11 04/23/20 11:05 Haloperidol 5 Mg Tablet PO 5 mg RQ4H PRN Administration Agtation Haloperidol 5 mg 04/22/20 17:00 04/23/20 16:15 Haloperidol 5 Mg Tablet PO 5 mg DAILY@1700 YANI Administration Haloperidol 5 mg 04/22/20 10:30 04/24/20 08:43 Haloperidol 5 Mg Tablet PO 5 mg DAILY YANI Administration Lamotrigine 100 mg 04/18/20 21:00 04/24/20 08:43 Lamotrigine 100 Mg Tablet PO 100 mg BID YANI Administration [place] Carbonate 600 mg 04/19/20 21:00 04/24/20 08:42 [place] Carbonate 300 Mg Capsule PO 600 mg BID YANI Administration Lorazepam 1 mg 04/20/20 09:33 04/21/20 01:12 Lorazepam 1 Mg Tablet PO 1 mg Q4H PRN Administration anxiety/restlessness Oxcarbazepine 300 mg 04/18/20 21:00 04/24/20 09:21 Oxcarbazepine 300 Mg Tablet PO 300 mg BID YANI Administration Vitamin D 125 mcg 04/19/20 09:00 04/24/20 08:41 Cholecalciferol (Vitamin D3) 25 Mcg Tablet PO 125 mcg DAILY YANI Administration Allergies Allergies Allergy/AdvReac Type Severity Reaction Status Date / Time No Known Allergies Allergy Verified 04/18/20 19:35 [No Known Allergies*] Assessment & Plan Assessment & Plan (1) Bipolar disorder: Qualifiers: Active/Remission status: currently active Current bipolar episode type: manic Current episode severity: severe Psychotic features: without psychotic features Qualified Code(s): F31.13 - Bipolar disorder, current episode manic without psychotic features, severe Status: Acute Code(s): F31.9 - Bipolar disorder, unspecified Assessment and Plan: Stable and responding well to current regime. Anticipate DC tomorrow Greater than 50% of the session was spent on counseling and/or coordination of care Patient educated on: diagnosis and medication risk/benefits Informed Consent: understands Reason for contiued inpatient stay Substantial Risk for: rapid decompensation
[2020-04-24] MEDS: LORazepam 1 MG TABLET PO (12:16)
[2020-04-24 18:30] VITALS: BP 148/69; PULSE 72; TEMP 36.8
[2020-04-25] MEDS: LORazepam 1 MG TABLET PO (04:29)
[2020-04-25 05:15] VITALS: BP 131/62; PULSE 95; RESP 18; TEMP 36.9
--- NOTE | 2020-04-25 09:28 | P.DS_ITS ---
DS: Providers Provider Date of admission: 04/19/20 11:01 Date of discharge: 04/25/20 Primary care physician: Unknown Physician Attending physician on admission: Naty Morales Attending physician on discharge: Naty Morales DS: Diagnosis Discharge Diagnosis (1) Bipolar disorder: Status: Acute DS: Medications Discharge Medications Home Medications: Home Medications Medication Instructions Recorded Confirmed cholecalciferol (vitamin D3) 1 cap PO DAILY 04/18/20 04/18/20 lamotrigine 1 tab PO BID 04/18/20 04/18/20 lithium carbonate 1 cap PO BID 04/18/20 04/18/20 oxcarbazepine 1 tab PO BID 04/18/20 04/18/20 Discharge Plan Discharge Patient Disposition: Home, Self-Care Referrals: Physician,Unknown [Primary Care Provider] - Discharge Medications: New chlorpromazine 100 mg Tablet 100 mg PO BEDTIME MDD 200mg Qty: 60 RF: 0 oxcarbazepine 300 mg Tablet 300 mg PO BID Qty: 60 RF: 0 lithium carbonate 300 mg Capsule 600 mg PO BID Qty: 120 RF: 0 lamotrigine 100 mg Tablet 100 mg PO BID Qty: 60 RF: 0 haloperidol 5 mg Tablet 5 mg PO BID Qty: 90 RF: 0 benztropine 1 mg Tablet 1 mg PO RQ4H PRN (Reason: Extrapyramidal Effects) Qty: 30 RF: 0 lorazepam 1 mg Tablet 1 mg PO Q4H PRN (Reason: Anxiety/Restlessness) Qty: 30 RF: 0 cholecalciferol (vitamin D3) 25 mcg (1,000 unit) Tablet 125 mcg PO DAILY Qty: 30 RF: 0 Discontinued oxcarbazepine 300 mg tablet 1 tab PO BID RF: 0 lithium carbonate 300 mg capsule 1 cap PO BID RF: 0 cholecalciferol (vitamin D3) 125 mcg (5,000 unit) capsule 1 cap PO DAILY RF: 0 lamotrigine 100 mg tablet 1 tab PO BID RF: 0 Discharge Orders: Discharge Order (Routine); Ordered 04/25/20 Ordered By: Naty Morales Diet: advance to usual diet Activity on Discharge: As tolerated Discharge Date/Time: 04/25/20 13:00 Other Ambulatory Orders: [place] (Routine) Timeframe: 1 Week Facility: [facility] - Location: Laboratory Ordered By: Naty Morales Visit Report Forms: Patient Portal Discharge page Care Plan Goals: Reduce giuliana Health Concerns: Giuliana Plan of Treatment: Stay on your medication Have Li level checked again in one week Go to your appointments Mental Status Exam Mental Status Exam Patient Appearance: Well Grooomed Patient Orientation: Person, Place, Time and Situation Level of Consciousness: Appropriate Patient Behavior: Talkative, Restless and Distractible Mood Description: Calm and Expansive Affect Description: Calm, Relaxed and Expansive Ability to Follow Directions: Good Speech Pattern: Spontaneous Speech, Rapid and Pressured Hallucinations: None Delusions: Grandiose Thought Process: Racing Thought Content: positive for Preoccupation, negative for Suicidal Ideation and negative for Homicidal Ideation Abnormal Motor Activity Signs and Symptoms: Hyperactivity Judgement: Fair Data Data Completed and Pending Completed studies during hospitalization [Text1]: 04/18/20 04/18/20 04/18/20 09:45 09:45 09:45 WBC 10.5 RBC 5.48 Hgb 15.3 Hct 46.6 MCV 85.0 MCH 27.9 MCHC 32.8 RDW 12.8 Plt Count 259 MPV 11.8 Immature Gran % (Auto) 0.3 Neut % (Auto) 69.2 Lymph % (Auto) 15.6 L [place] % (Auto) 13.4 H Eos % (Auto) 0.9 Baso % (Auto) 0.6 Lymph # (Auto) 1.6 [place] # (Auto) 1.4 H Eos # (Auto) 0.1 Baso # (Auto) 0.1 Abs Immat Gran (auto) 0.03 Absolute Neuts (auto) 7.3 Absolute Nucleated RBC 0.000 Nucleated RBC % (auto) 0.0 Sodium 139 Potassium 4.2 Chloride 107 Carbon Dioxide 22 Anion Gap 14 BUN 13 Creatinine 1.01 Estim Creat Clear Calc 146.2 Estimated GFR > 60 Random Glucose 113 Calcium 9.5 Total Bilirubin 0.5 AST 24 ALT 22 Alkaline Phosphatase 63 Total Protein 7.8 Albumin 5.1 H Urine Opiates Screen Ur Barbiturates Screen Ur Phencyclidine Scrn Ur Amphetamines Screen U Benzodiazepines Scrn [place] 0.17 L Urine Cocaine Screen U Marijuana (THC) Screen Ethyl Alcohol COVID-19 (KELVIN) COVID-19 Clin Com 04/18/20 04/18/20 04/18/20 09:45 15:10 16:08 WBC RBC Hgb Hct MCV MCH MCHC RDW Plt Count MPV Immature Gran % (Auto) Neut % (Auto) Lymph % (Auto) [place] % (Auto) Eos % (Auto) Baso % (Auto) Lymph # (Auto) [place] # (Auto) Eos # (Auto) Baso # (Auto) Abs Immat Gran (auto) Absolute Neuts (auto) Absolute Nucleated RBC Nucleated RBC % (auto) Sodium Potassium Chloride Carbon Dioxide Anion Gap BUN Creatinine Estim Creat Clear Calc Estimated GFR Random Glucose Calcium Total Bilirubin AST ALT Alkaline Phosphatase Total Protein Albumin Urine Opiates Screen Not Detected Ur Barbiturates Screen Not Detected Ur Phencyclidine Scrn Not Detected Ur Amphetamines Screen Not Detected U Benzodiazepines Scrn Not Detected [place] Urine Cocaine Screen Not Detected U Marijuana (THC) Screen Not Detected Ethyl Alcohol < 10 COVID-19 (KELVIN) Negative COVID-19 Clin Com See Note 04/21/20 07:22 WBC RBC Hgb Hct MCV MCH MCHC RDW Plt Count MPV Immature Gran % (Auto) Neut % (Auto) Lymph % (Auto) [place] % (Auto) Eos % (Auto) Baso % (Auto) Lymph # (Auto) [place] # (Auto) Eos # (Auto) Baso # (Auto) Abs Immat Gran (auto) Absolute Neuts (auto) Absolute Nucleated RBC Nucleated RBC % (auto) Sodium Potassium Chloride Carbon Dioxide Anion Gap BUN Creatinine Estim Creat Clear Calc Estimated GFR Random Glucose Calcium Total Bilirubin AST ALT Alkaline Phosphatase Total Protein Albumin Urine Opiates Screen Ur Barbiturates Screen Ur Phencyclidine Scrn Ur Amphetamines Screen U Benzodiazepines Scrn [place] 0.24 L Urine Cocaine Screen U Marijuana (THC) Screen Ethyl Alcohol COVID-19 (KELVIN) COVID-19 Clin Com DS: Summary Hospital Course Hospital Course: 20 year old man who was referred for admission by CARE team due to increasing giuliana. He self presented. This is the patient's fourth admission to and first this year. He carries the diagnosis of bipolar disorder and when manic can become agitated and aggressive. Gino reports that he has been working with his outpatient psychiatrist, Shamir Daily, to lower his Li over the last several months. It was discontinued about three weeks ago and since this time Gino has been increasingly pressured, grandiose, expansive and euphoric. He presented to the ER for assistance since he was concerned that he was getting manic and wanted to try to head it off at the pass. On arrival Gino was loud and pressured. He spoke about his potential to make millions in the matter of a few hours, his magnetic attractiveness to women and the amazing promotion he has just had at his new job. He was pacing up and down the halls, but did respond to redirection. Past Psychiatric History: 3 admissions to Required iv ketamine during one stay due to his giuliana. Shamir Daily is his outpatient psychiatrist Rosendo Bains is his therapist He has been on multiple medications in the past including depakote, abilify, latuda, and Li Gino was admitted on a CV and 15 minute checks. He had been medically cleared in the ER. He agreed to an increase in Li and to have haldol and thorazine as these had b een effective in the past. He initially had these prescribed prn, but later asked for them to be scheduled. Throughout the stay he was easily re-directed and in behavioral control. He rapidly recompensated. A DC was planned. Li level was 0.54 Time Spent with Patient Time attestation: Total time spent providing and/or coordinating discharge services:
[2020-04-25] MEDS: Lithium Carbonate 300 MG CAPSULE 600 MG PO (09:36)
[2020-04-25] MEDS: HaloperidoL 5 MG TABLET PO (09:36)
[2020-04-25] MEDS: Cholecalciferol (Vitamin D3) 25 MCG TABLET 125 MCG PO (09:36)
[2020-04-25] MEDS: OXcarbazepine 300 MG TABLET PO (09:36)
[2020-04-25] MEDS: lamoTRIgine 100 MG TABLET PO (09:37)
[2020-04-25 11:52] LABS: Lithium 0.54 mmol/L (0.60-1.20)
== END 2020-04-25 13:00 | disposition home or self-care (01) | DRG 753 ==
LOC: HO.ED 04-19 11:07 → HO.PM5 04-19 11:09
PROVIDERS: Admitting Provider Psychiatry & Neurology Psychiatry; Emergency Provider Emergency Medicine Emergency Medical Services; Visit Provider Psychiatry & Neurology Psychiatry
DX: F31.13 Bipolar disorder, current episode manic without psychotic features, severe (principal); Z20.828 Contact with and (suspected) exposure to other viral communicable diseases; Z79.899 Other long term (current) drug therapy
CPT/HCPCS: 36415; 80053; 80178; 80307; 80320; 85025; 87635; 96372; 99285; J2060

== ENCOUNTER 2020-05-03 20:10 | Emergency (ER) | payer OTHER, SELFPAY ==
[2020-05-03 20:15] VITALS: BP 156/71; PULSE 94; RESP 22; TEMP 37.1; O2SAT 99; BMI 33.9
--- NOTE | 2020-05-03 20:55 | ED_ITS ---
HPI - Psych General Chief Complaint: Psychiatric Symptoms Stated Complaint: Crisis Time Seen by Provider: 05/03/20 20:54 Source: patient History of Present Illness HPI Narrative: 20-year-old male with bipolar disorder presents with giuliana, anxiety, and suspected medication noncompliance. Was recently admitted to in early April and started on Thorazine, lithium, and Lamictal. At this time he is cooperative, posturing, pacing, and appears very anxious. He does have VNA services at home for medication administration. MD complaint: anxiety Onset (ago): day(s) Duration: constant History of same: Yes Relieving factors: none Context: not taking psychiatric medications Associated psychiatric symptoms: racing thoughts Associated symptoms: denies other symptoms Related Data Home Medications Medication Instructions Recorded Confirmed chlorpromazine 25 mg PO BID 05/03/20 05/03/20 cholecalciferol (vitamin D3) 125 mcg PO BID 05/03/20 05/03/20 Previous Rx's Medication Instructions Recorded benztropine 1 mg PO RQ4H PRN #30 tab 04/25/20 haloperidol 5 mg PO BID #90 tab 04/25/20 lamotrigine 100 mg PO BID #60 tab 04/25/20 lithium carbonate 600 mg PO BID #120 cap 04/25/20 lorazepam 1 mg PO Q4H PRN #30 tab 04/25/20 oxcarbazepine 300 mg PO BID #60 tab 04/25/20 Allergies Allergy/AdvReac Type Severity Reaction Status Date / Time No Known Allergies Allergy Verified 04/18/20 19:35 [No Known Allergies*] Review of Systems Review of Systems: Constitutional: No Fever, No Chills ENT/Mouth: No Ear Pain, No Nasal Congestion, No sore throat Eyes: No Eye Pain, No Swelling, No Redness Cardiovascular: No Chest Pain, No SOB Respiratory: No Cough, No Sputum, No Dyspnea Gastrointestinal: No Nausea, No Vomiting, No Diarrhea, No Hematochezia, No Melena Genitourinary: No Dysuria, No Urinary Frequency, No Hematuria Musculoskeletal: No Myalgias Skin: No Skin Lesions, No rash Neuro: No Weakness, No Numbness, No Paresthesias, No Dizziness, No Headache Psych: positive Anxiety, positive Depression, no SI/HI, positive giuliana, positive racing thoughts Heme/Lymph: No Lymphadenopathy Endocrine: No Polyuria, No Polydipsia Yes all other systems are reviewed and are negative [facility] Past Medical History Attestation statement: The following information was validated with the patient. Source: old records reviewed and nursing notes reviewed Social History Social History Household Members: Family Housing: House Alcohol intake: former Smoking Status: Never smoker Second Hand Smoke Exposure: No Use of substances other than those prescribed or required for medical reasons: No Advance Directives: No Advance Directives Information Provided: Yes service: No Sexual orientation: Decline to Answer Physical Exam Vital Signs: Vital Signs: Last Vital Signs Temp 98.8 F 05/03/20 20:15 Pulse 94 05/03/20 20:15 Resp 22 H 05/03/20 20:15 BP 156/71 H 05/03/20 20:15 Pulse Ox 99 05/03/20 20:15 Body Mass Index 33.9 Appearance: Alert. Oriented X3. No acute distress. Eyes: Pupils equal, round and reactive to light. ENT: Pharynx normal. Neck: Normal inspection. Neck supple. CVS: Normal heart rate and rhythm. Pulses normal. Respiratory: No respiratory distress. Breath sounds normal. Abdomen: Soft and nontender. Skin: Skin warm and dry. Normal skin color. Normal skin turgor. Extremities: No lower extremity edema. Neuro: No motor deficit. No sensory deficit. Course Course Course Narrative: 20-year-old male with significant psychiatric history of bipolar disorder, presents with giuliana, racing thoughts, anxiety and depression. He is not suicidal or homicidal, he is answering questions directly, is pacing and posturing. He reports to be on Thorazine and lithium, we will order labs, M5 consult, and put section [address]. His prior psych consult from Dr. Doni chacon was reviewed, his last M5 admission was early April. At that time he was placed on Thorazine and lithium, discussion with Dr. Doni chacon regarding lithium levels. Plan is to continue with 600 mg b.i.d. starting tonight. It is unlikely that patient has been taking his medications as directed even though he does say that he is. Plan is for M5 admission once there is an open bed. N consult complete. Plan is for possible M5 admission for medication evaluation and possible lithium titration. After multiple discussions with N and care team, plan is for patient to be discharged home. Family does feel comfortable taking him home. Bed search will continue while patient is at home he does understand that if any symptoms exacerbate that he is more than welcome to return. There is a plan that patient will return on Wednesday for M5 admission if needed at that time. Consultations Consultation #1: Doni chacon Time: 23:08 MDM - Psych Differential Diagnosis Differential diagnosis: Likely acute psychosis, bipolar disorder, depression, drug-induced psychotic disorder, acute anxiety and mood disorder Restraints Face to Face Assessment: Face to Face Assessment: Current Situation: After assessment of the patient, a review of the pertinent medical record and a discussion with nursing staff, I feel the patient requires a restrain intervention. Reaction To: [] Medical Condition: [] Behavioral State: [] Continued Need: [] Medical Records Attestation: I reviewed the patient's medical records. Lab Data Attestation: I reviewed the patient's lab results. Result diagrams: 05/03/20 21:30 Labs: Lab Results 05/03/20 05/03/20 05/03/20 Range/Units 21:30 21:30 21:30 WBC 11.5 H (4.8-10.8) X10*3/uL RBC 5.28 (4.60-5.80) X10*6/uL Hgb 14.9 (14.0-18.0) g/dl Hct 45.5 (42-52) % MCV 86.2 (80-98) fL MCH 28.2 (27.0-33.0) pg MCHC 32.7 (31.0-36.0) g/dl RDW 13.2 (11.0-16.0) % Plt Count 294 (160-400) X10*3/uL MPV 10.6 (9.4-12.4) fL Immature Gran % (Auto) 0.3 (0.0-0.4) % Neut % (Auto) 67.4 (45-73) % Lymph % (Auto) 20.9 (20-40) % [place] % (Auto) 9.1 (2-11) % Eos % (Auto) 1.7 (0-4) % Baso % (Auto) 0.6 (0-2) % Lymph # (Auto) 2.4 (1.2-4.9) X10*3/uL [place] # (Auto) 1.1 (0.1-1.2) X10*3/uL Eos # (Auto) 0.2 (0.0-0.4) X10*3/uL Baso # (Auto) 0.1 (0.0-0.2) X10*3/uL Abs Immat Gran (auto) 0.03 (0.00-0.03) X10*3/uL Absolute Neuts (auto) 7.8 (2.0-8.3) X10*3/uL Absolute Nucleated RBC 0.000 (0.0-0.012) X10*3/uL Nucleated RBC % (auto) 0.0 (0.0-0.2) /100WBC Urine Opiates Screen Not Detected (Not Detect) Ur Barbiturates Screen Not Detected (Not Detect) Ur Phencyclidine Scrn Not Detected (Not Detect) Ur Amphetamines Screen Not Detected (Not Detect) U Benzodiazepines Scrn Not Detected (Not Detect) [place] 0.24 L (0.60-1.20) mmol/L Urine Cocaine Screen Not Detected (Not Detect) U Marijuana (THC) Screen Not Detected (Not Detect) Ethyl Alcohol mg/dL 05/03/20 Range/Units 21:30 WBC (4.8-10.8) X10*3/uL RBC (4.60-5.80) X10*6/uL Hgb (14.0-18.0) g/dl Hct (42-52) % MCV (80-98) fL MCH (27.0-33.0) pg MCHC (31.0-36.0) g/dl RDW (11.0-16.0) % Plt Count (160-400) X10*3/uL MPV (9.4-12.4) fL Immature Gran % (Auto) (0.0-0.4) % Neut % (Auto) (45-73) % Lymph % (Auto) (20-40) % [place] % (Auto) (2-11) % Eos % (Auto) (0-4) % Baso % (Auto) (0-2) % Lymph # (Auto) (1.2-4.9) X10*3/uL [place] # (Auto) (0.1-1.2) X10*3/uL Eos # (Auto) (0.0-0.4) X10*3/uL Baso # (Auto) (0.0-0.2) X10*3/uL Abs Immat Gran (auto) (0.00-0.03) X10*3/uL Absolute Neuts (auto) (2.0-8.3) X10*3/uL Absolute Nucleated RBC (0.0-0.012) X10*3/uL Nucleated RBC % (auto) (0.0-0.2) /100WBC Urine Opiates Screen (Not Detect) Ur Barbiturates Screen (Not Detect) Ur Phencyclidine Scrn (Not Detect) Ur Amphetamines Screen (Not Detect) U Benzodiazepines Scrn (Not Detect) [place] (0.60-1.20) mmol/L Urine Cocaine Screen (Not Detect) U Marijuana (THC) Screen (Not Detect) Ethyl Alcohol < 10 mg/dL Discharge Plan Discharge Clinical Impression: Bipolar disorder Qualifiers: Active/Remission status: currently active Current bipolar episode type: manic Current episode severity: moderate Qualified Code(s): F31.12 - Bipolar disorder, current episode manic without psychotic features, moderate Patient Disposition: Home, Self-Care Instructions: Bipolar Disorder (ED) Additional Instructions: You were evaluated for a manic episode. Your lithium levels were below therapeutic level. We did give you your evening medications while you were here. Please take her medications as directed. There is an active bed search for you. Please return to emergency department immediately if you have any concerns. Thank you for choosing this emergency department for evaluation. Please follow-up with primary care physician as needed. Return to the emergency dep artment for any new, concerning, or worsening symptoms. Prescriptions: No Action chlorpromazine 100 mg tablet 25 mg PO BID RF: 0 cholecalciferol (vitamin D3) 25 mcg (1,000 unit) tablet 125 mcg PO BID RF: 0 oxcarbazepine 300 mg Tablet 300 mg PO BID Qty: 60 RF: 0 lithium carbonate 300 mg Capsule 600 mg PO BID Qty: 120 RF: 0 lamotrigine 100 mg Tablet 100 mg PO BID Qty: 60 RF: 0 haloperidol 5 mg Tablet 5 mg PO BID Qty: 90 RF: 0 benztropine 1 mg Tablet 1 mg PO RQ4H PRN (Reason: Extrapyramidal Effects) Qty: 30 RF: 0 lorazepam 1 mg Tablet 1 mg PO Q4H PRN (Reason: Anxiety/Restlessness) Qty: 30 RF: 0
[2020-05-03] MEDS: LORazepam 1 MG TABLET 2 MG PO (21:14)
[2020-05-03 21:39] LABS: Basophils Absolute Auto 0.1 X10*3/uL (0.0-0.2); Basophils Percent Auto 0.6 % (0-2); Eosinophils Absolute Auto 0.2 X10*3/uL (0.0-0.4); Eosinophils Percent Auto 1.7 % (0-4); Hematocrit 45.5 % (42-52); Hemoglobin 14.9 g/dl (14.0-18.0); Imm Gran Abs Auto 0.03 X10*3/uL (0.00-0.03); Imm Gran Pct Auto 0.3 % (0.0-0.4); Lymphocytes Absolute Auto 2.4 X10*3/uL (1.2-4.9); Lymphocytes Percent Auto 20.9 % (20-40); Mean Corpuscular HGB Conc 32.7 g/dl (31.0-36.0); Mean Corpuscular Hemoglobin 28.2 pg (27.0-33.0); Mean Corpuscular Volume 86.2 fL (80-98); Mean Platelet Volume 10.6 fL (9.4-12.4); Monocytes Absolute Auto 1.1 X10*3/uL (0.1-1.2); Monocytes Percent Auto 9.1 % (2-11); Neutrophils Absolute Auto 7.8 X10*3/uL (2.0-8.3); Neutrophils Percent Auto 67.4 % (45-73); Platelet Count 294 X10*3/uL (160-400); Red Blood Count 5.28 X10*6/uL (4.60-5.80); Red Cell Distribution Width 13.2 % (11.0-16.0); White Blood Count 11.5 X10*3/uL (4.8-10.8)
[2020-05-03 21:40] LABS: MANUAL DIFF FLAG NO
[2020-05-03 22:08] LABS: Lithium 0.24 mmol/L (0.60-1.20)
[2020-05-03 22:12] LABS: Ethanol < 10 mg/dL
[2020-05-03 22:16] LABS: Amphetamine Screen Urine Not Detected (Not Detect); Barbiturates, Urine Not Detected (Not Detect); Benzodiazepines Screen Urine Not Detected (Not Detect); Cannabinoid Screen Urine Not Detected (Not Detect); Cocaine Screen Urine Not Detected (Not Detect); Opiate Screen Urine Not Detected (Not Detect); Phencyclidine Screen Urine Not Detected (Not Detect)
--- NOTE | 2020-05-03 23:11 | PC.NURSE ---
PT asked about his medication compliance due to low lithium levels. PT stated that he has been taking his scheduled dose morning and night for the past week and a half but he did stop taking the lithium for a week prior to that.
[2020-05-03] MEDS: lamoTRIgine 100 MG TABLET PO (23:57)
[2020-05-03] MEDS: Lithium Carbonate 300 MG CAPSULE 600 MG PO (23:57)
[2020-05-03] MEDS: OXcarbazepine 300 MG TABLET PO (23:57)
--- NOTE | 2020-05-04 00:59 | PC.NURSE ---
PT seen by N. Decision made to keep PT here and admit to M5 when a bed becomes available.
--- NOTE | 2020-05-04 02:03 | MHC.CARE ---
[facility] clarity developer, Nina, completes evaluation with pt, and indicates that pt would benefit from inpatient bedsearch from home. Nina reports that there are no current safety concerns, but pt would like to go inpatient to for to discuss medications. CARE Team communicates this with LEATHER STAKER, Katelyn Ash, who agrees to discharge the pt to home, with plan for pt to return to ED if symptoms worsen. Nina reports that [facility] will speak with pt daily and will refer pt to from home. She indicates that bedsearch will be cancelled if pt no longer wants admission, as he is a voluntary bedsearch. Plan is for pt to be discharged to mother's home, and per YUVAL Owens, mother is aware of this and in agreement with plan.
== END 2020-05-04 02:17 | disposition home or self-care (01) ==
PROVIDERS: Nurse Practitioner Family; Emergency Provider Internal Medicine; PCP Physician Assistant
DX: F31.12 Bipolar disorder, current episode manic without psychotic features, moderate (principal); F41.1 Generalized anxiety disorder; F43.0 Acute stress reaction; Z91.14 Patient's other noncompliance with medication regimen; Z79.899 Other long term (current) drug therapy
CPT/HCPCS: 36415; 80178; 80307; 80320; 85025; 99284

== ENCOUNTER 2020-05-05 11:48 | Inpatient (IN) | payer OTHER, SELFPAY ==
[2020-05-05 12:29] VITALS: BP 157/73; PULSE 93; RESP 20; TEMP 37.2; O2SAT 98; BMI 33.9
--- NOTE | 2020-05-05 12:31 | ED_ITS ---
HPI - Psych General Chief Complaint: Psychiatric Symptoms Stated Complaint: suicidal/homicidal Time Seen by Provider: 05/05/20 12:14 Source: patient Mode of arrival: ambulatory History of Present Illness HPI Narrative: 20-year-old male with a past medical history of bipolar with recent admission to 1.5 weeks ago presenting to ED complaining of feeling anxious/manic/agitated with suicidal and homicidal ideations without plan x a couple days. Reports hearing voices that are telling him to kill himself. Denies substance abuse/ETOH use, visual hallucinations, abdominal pain, nausea/vomiting, recent fall/trauma, CP/SOB MD complaint: suicidal ideation and homicidal ideation Onset (ago): day(s) Related Data Home Medications Medication Instructions Recorded Confirmed chlorpromazine 25 mg PO BID 05/03/20 05/05/20 cholecalciferol (vitamin D3) 125 mcg PO BID 05/03/20 05/05/20 olanzapine 1 tab PO BEDTIME 05/05/20 05/05/20 Previous Rx's Medication Instructions Recorded benztropine 1 mg PO RQ4H PRN #30 tab 04/25/20 haloperidol 5 mg PO BID #90 tab 04/25/20 lamotrigine 100 mg PO BID #60 tab 04/25/20 lithium carbonate 600 mg PO BID #120 cap 04/25/20 lorazepam 1 mg PO Q4H PRN #30 tab 04/25/20 oxcarbazepine 300 mg PO BID #60 tab 04/25/20 Allergies Allergy/AdvReac Type Severity Reaction Status Date / Time No Known Allergies Allergy Verified 04/18/20 19:35 [No Known Allergies*] Review of Systems Review of Systems: Constitutional: No Weight loss, No Fever, No Chills Cardiovascular: No Chest Pain, No SOB Respiratory: No Cough, No Sputum Gastrointestinal: No Nausea, No Vomiting, No Diarrhea, No Constipation, No Abdominal pain Musculoskeletal: No joint pain, No Myalgias, No Joint Swelling Skin: No Skin Lesions, No rash Psych: + Anxiety, + Depression, + SI/HI, +AH, No VH Yes all other systems are reviewed and are negative PMFSH Past Medical History Attestation statement: The following information was validated with the patient. Medical History (Updated 05/05/20 @ 17:27 by PRANAV Perez) Anxiety Depression Social History Social History Household Members: Family Housing: House Alcohol intake: unknown Smoking Status: Unknown if ever smoked Smoked in Last 30 Days: No Second Hand Smoke Exposure: No Use of substances other than those prescribed or required for medical reasons: Unknown Advance Directives: No Advance Directives Information Provided: No service: No Sexual orientation: Decline to Answer Physical Exam Vital Signs: Vital Signs: Last Vital Signs Temp 99.0 F 05/05/20 12:29 Pulse 93 05/05/20 12:29 Resp 20 05/05/20 14:46 BP 157/73 H 05/05/20 12:29 Pulse Ox 98 05/05/20 14:46 Body Mass Index 33.9 Const: General: cooperative Orientation/consciousness: patient oriented x3 Limitations: no limitations HENMT: Head: Yes normal to inspection Ears: hearing grossly normal bilaterally General nose exam: Normal external nose present Face and sinus: Yes normal facial exam Eyes: General: appearance normal, both eyes and all related structures EOM: EOMs intact bilaterally Neck: Neck: Yes normal visual inspection and Yes no meningeal signs Resp: Effort & Inspection: normal respiratory effort Auscultation: clear to auscultation bilaterally, no rales, no rhonchi and no wheezes Cardio: Rate: regular rate Heart sounds: S1 normal heart sound present and S2 normal heart sound present GI: Inspection: Yes normal to inspection Palpation (GI): Soft to palpation, nontender, no guarding and not rigid Skin: Rashes: no rashes Wounds: no wounds Neuro: General: patient oriented x3, tone normal, moves all extremities and no meningeal signs Gait exam (Neuro): Normal gait present Extrem: General: Yes normal to inspection Psych: Affect: Blunted affect present Attitude: cooperative Thought content: Suicidality present, Homicidality present and Depressive thoughts present Course Course Course Narrative: * Tox screen negative * Patient was evaluated by [facility] and is now inpatient bed search * 2100-- ED care transferred to AGUSTINA Zepeda pending bed search MDM - Psych MDM Narrative Medical decision making narrative: 20-year-old male with a past medical history of bipolar with recent admission to 1.5 weeks ago presenting to ED compl aining of feeling anxious/manic/agitated with suicidal and homicidal ideations without plan x a couple days. On exam VSS, NAD/well-appearing, suicidal and homicidal without plan. -I spoke to patients outpatient psychiatrist Dr. Daily, reports has been trying to change patient's medications as was over-sedated with recently prescribed Thorazine and Haldol. Decreased Thorazine from 100mg to 25 mg, however patient reported he was sleep walking, so goal was to initiate patient on Zyprexa, however does not bleed patient has pick it up/started it yet Plan: ILEANA SANTOS consult Lab Data Labs: Lab Results 05/05/20 Range/Units 13:40 Urine Opiates Screen Not Detected (Not Detect) Ur Barbiturates Screen Not Detected (Not Detect) Ur Phencyclidine Scrn Not Detected (Not Detect) Ur Amphetamines Screen Not Detected (Not Detect) U Benzodiazepines Scrn Not Detected (Not Detect) Urine Cocaine Screen Not Detected (Not Detect) U Marijuana (THC) Screen Not Detected (Not Detect) Discharge Plan Discharge Clinical Impression: Suicidal ideation, Depression Bipolar disorder Qualifiers: Active/Remission status: currently active Current bipolar episode type: mixed Current episode severity: unspecified Qualified Code(s): F31.60 - Bipolar disorder, current episode mixed, unspecified Patient Disposition: Admitted As Inpatient
[2020-05-05] MEDS: LORazepam 1 MG TABLET 2 MG PO (12:57)
--- NOTE | 2020-05-05 13:11 | PC.NURSE ---
Pt witnessed another pt having a psychiatric episode and became anxious. PRANAV Dean notified and provided orders. Pt medicated per emar.
[2020-05-05 14:10] LABS: Amphetamine Screen Urine Not Detected (Not Detect); Barbiturates, Urine Not Detected (Not Detect); Benzodiazepines Screen Urine Not Detected (Not Detect); Cannabinoid Screen Urine Not Detected (Not Detect); Cocaine Screen Urine Not Detected (Not Detect); Opiate Screen Urine Not Detected (Not Detect); Phencyclidine Screen Urine Not Detected (Not Detect)
[2020-05-05] MEDS: OLANZapine 5 MG TABLET 10 MG PO (14:36)
[2020-05-05 14:46] VITALS: RESP 20; O2SAT 98
--- NOTE | 2020-05-05 15:05 | PC.NURSE ---
ED summary faxed to N. Pt awaiting clinician follow up.
--- NOTE | 2020-05-05 16:21 | PC.NURSE ---
Report received. PT ambulated to pod with steady gait. Waiting to see [facility], denies complaints.
--- NOTE | 2020-05-05 16:24 | PC.NURSE ---
[facility]N at bedside for eval.
[2020-05-05] MEDS: Omeprazole 20 MG CAPSULE.DR PO (19:36)
[2020-05-05 20:49] LABS: COVID-19 Test Negative (Negative); IDNOW Serial# 9DD0AD1C
[2020-05-05] MEDS: HaloperidoL 5 MG TABLET PO (20:52)
[2020-05-05] MEDS: Lithium Carbonate 300 MG CAPSULE 600 MG PO (20:52)
[2020-05-05] MEDS: lamoTRIgine 100 MG TABLET PO (20:52)
[2020-05-05] MEDS: OLANZapine 5 MG TABLET PO (20:53)
[2020-05-05] MEDS: OXcarbazepine 300 MG TABLET PO (20:53)
[2020-05-05] MEDS: LORazepam 1 MG TABLET PO (22:29)
[2020-05-06] MEDS: diphenhydrAMINE HCL 25 MG TABLET 50 MG PO (00:02)
[2020-05-06] MEDS: chlorproMAZINE HCl 25 MG TABLET 50 MG PO (01:02)
--- NOTE | 2020-05-06 03:45 | PC.NURSE ---
05/05/20 1900: Pt in behavioral control. pt gave permission to speak to mom. Pt reports GERD symptoms. Provider to order Omprezole. 2100: Pt given snacks and night meds. Refused Thorazine and vit D. I dont' take those meds anymore. 2230: pt reports increasing anxiety. 2300: pt sleeping at this time. skin p/w/d. 2355: pt reports I'm feeling angry, I want something for agitation. 05/06/20 0000: 50mg Benadryl given to promote sleep. 0015: pt up and pacing in hallway. Pt is in behavioral control 0030: Pt is asleep on cough. I don't want to sleep in my bed . 0100: Pt remains up and down in hallway. pt remains in behavioral control 0130: Sleeping on couch at this time. 0215:Pt in milieu sitting on couch watching tv/intermittently sleeping. 0300: Pt sleeping on couch at this time. skin p/w/d. airway patent.
--- NOTE | 2020-05-06 05:01 | PC.NURSE ---
05/06/20 0100: pt remains pacing and intermittently sleeping on couch. 0130-pt sleeping at this time. 0215: Pt in milieu sleeping on couch. 0300: Pt sleeping on couch at this time. skin p/w/d. airway patent. 0500: pt sleeping at this time. skin p/w/d. airway patent. no distress noted.
--- NOTE | 2020-05-06 07:00 | PC.NURSE ---
Report received. PT out of bed, asking for breakfast. Calm and cooperative. Inpatient bed search in progress.
[2020-05-06] MEDS: Lithium Carbonate 300 MG CAPSULE 600 MG PO ×2 (08:01→20:45)
[2020-05-06] MEDS: OXcarbazepine 300 MG TABLET PO ×2 (08:02→20:46)
[2020-05-06] MEDS: lamoTRIgine 100 MG TABLET PO ×2 (08:02→20:46)
[2020-05-06] MEDS: HaloperidoL 5 MG TABLET PO ×2 (08:03→21:09)
[2020-05-06] MEDS: Cholecalciferol (Vitamin D3) 25 MCG TABLET 125 MCG PO ×2 (08:03→23:56)
[2020-05-06] MEDS: chlorproMAZINE HCl 100 MG TABLET 25 MG PO (08:04)
[2020-05-06] MEDS: LORazepam 1 MG TABLET PO ×3 (10:34→23:56)
[2020-05-06] MEDS: Benztropine Mesylate 1 MG TABLET PO (15:06)
--- NOTE | 2020-05-06 19:57 | PC.NURSE ---
Patient hyper, in and out of room multiple times, not disruptive at this time, no distress reported, will continue to monitor,
[2020-05-06] MEDS: OLANZapine 5 MG TABLET PO (20:46)
--- NOTE | 2020-05-06 21:10 | PC.NURSE ---
Patient got agitated over co-patient's remarks, started punching bed mattress so hard received superficial cuts, difficult to redirect, offered night time medication took all except scheduled Thorazine, patient deescalated after co-patient apologized for her remarks, patient is now in hallway, talking to staff member, will continue to monitor.
[2020-05-06 23:24] VITALS: BP 142/87; PULSE 96; TEMP 36.9; O2SAT 97
[2020-05-06 23:50] VITALS: BP 120/78; PULSE 112; RESP 20; TEMP 36.6; O2SAT 97
[2020-05-07 00:07] VITALS: BMI 34.5
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
[2020-05-07] MEDS: diphenhydrAMINE HCL 25 MG TABLET 50 MG PO (01:46)
[2020-05-07 06:30] VITALS: BP 134/81; PULSE 90; RESP 20; TEMP 36.6; O2SAT 98
[2020-05-07 08:22] LABS: MANUAL DIFF FLAG NO
[2020-05-07 08:32] LABS: Basophils Absolute Auto 0.1 X10*3/uL (0.0-0.2); Basophils Percent Auto 0.5 % (0-2); Eosinophils Absolute Auto 0.5 X10*3/uL (0.0-0.4); Eosinophils Percent Auto 3.9 % (0-4); Hematocrit 45.8 % (42-52); Hemoglobin 14.8 g/dl (14.0-18.0); Imm Gran Abs Auto 0.05 X10*3/uL (0.00-0.03); Imm Gran Pct Auto 0.4 % (0.0-0.4); Lymphocytes Absolute Auto 2.4 X10*3/uL (1.2-4.9); Mean Corpuscular HGB Conc 32.3 g/dl (31.0-36.0); Mean Corpuscular Hemoglobin 27.7 pg (27.0-33.0); Mean Corpuscular Volume 85.8 fL (80-98); Mean Platelet Volume 10.8 fL (9.4-12.4); Monocytes Absolute Auto 1.4 X10*3/uL (0.1-1.2); Monocytes Percent Auto 12.4 % (2-11); Neutrophils Absolute Auto 7.2 X10*3/uL (2.0-8.3); Neutrophils Percent Auto 61.8 % (45-73); Platelet Count 287 X10*3/uL (160-400); Red Blood Count 5.34 X10*6/uL (4.60-5.80); White Blood Count 11.6 X10*3/uL (4.8-10.8)
[2020-05-07] MEDS: lamoTRIgine 100 MG TABLET PO ×2 (08:37→20:05)
[2020-05-07] MEDS: HaloperidoL 5 MG TABLET PO ×2 (08:38→20:04)
[2020-05-07] MEDS: LORazepam 1 MG TABLET PO (08:38)
[2020-05-07] MEDS: OXcarbazepine 300 MG TABLET PO ×2 (08:38→20:04)
[2020-05-07] MEDS: Lithium Carbonate 300 MG CAPSULE 600 MG PO ×2 (08:38→20:04)
[2020-05-07 08:57] LABS: Alanine Aminotransferase 47 U/L (0-40); Albumin Level 4.5 g/dL (3.5-5.0); Alkaline Phosphatase 75 U/L (39-117); Anion Gap 14 (12-20); Aspartate Amino Transferase 32 U/L (5-37); Bilirubin Total 0.2 mg/dL (0.0-1.0); Blood Urea Nitrogen 17 mg/dL (9-16); Calcium 9.4 mg/dL (8.4-10.2); Carbon Dioxide 28 mmol/L (22-29); Chloride 102 mmol/L (96-108); Creatinine Clr Calc Pharmacy 187.6; Estimated Glomerular Filt Rate > 60; Glucose Fasting 97 mg/dL (60-99); Lithium 0.33 mmol/L (0.60-1.20); Potassium 4.5 mmol/l (3.3-5.1); Sodium 139 mmol/L (135-145)
[2020-05-07 09:21] LABS: Free T4 (Free Thyroxine) 0.99 ng/dL (0.71-1.85); Thyroid Stimulating Hormone 2.21 uIU/mL (0.32-4.0)
[2020-05-07 09:22] LABS: Estimated Average Glucose 103 mg/dL; Hemoglobin A1c % 5.2 %
--- NOTE | 2020-05-07 14:20 | PC.NURSE ---
Followed up- pt reports he does not smoke.
--- NOTE | 2020-05-07 16:20 | PC.NURSE ---
SMOKING RISK ASSESSMENT PT. STATED I HAVE NOT SMOKED IN 3 YEARS . PT. DOES NOT WANT A NICOTINE REPLACEMENT.
[2020-05-07 18:00] VITALS: BP 149/67; PULSE 81; TEMP 36.6
--- NOTE | 2020-05-07 18:03 | P.HPPS_ITS ---
HPI Chief Complaint: GIULIANA,SUICIDAL IDEATION Sources of Information: patient interviewed, chart reviewed and crisis/core team assessment reviewed HPI Narrative: 20 year old man who was DC on 04/25/20 and re-presented to the ER several times due to feeling scared and having thoughts of slef harm. He had had his thorazine DC by his PCP and started on zyprexa. He has been more labile and he has not been feeling safe at home. He was admitted for further stabilization. Past Psychiatric History: 3 admissions to Required iv ketamine during one stay due to his giuliana. Shamir Daily is his outpatient psychiatrist Rosendo Bains is his therapist He has been on multiple medications in the past including depakote, abilify, latuda, and Li PMFSH Medical History Anxiety Bipolar 1 disorder with moderate giuliana Depression No known health problems Family History: Family history is significant for bipolar disorder and alcohol use disorder Social History: Lives with his mother Trauma History: Denies Diagnostics Vital Signs (24Hr): Vital Signs - 24 hr 05/06/20 23:24 05/06/20 23:50 05/07/20 06:30 Temperature 98.5 F 97.9 F 97.9 F Pulse Rate 96 112 H 90 Respiratory Rate 20 20 Blood Pressure 142/87 H 120/78 134/81 Pulse Oximetry 97 97 98 Body Mass Index 34.5 Labs Results: 05/07/20 07:57 05/07/20 07:57 Labs: Laboratory Results - last 48 hr 05/05/20 05/07/20 05/07/20 19:33 07:57 07:57 WBC 11.6 H RBC 5.34 Hgb 14.8 Hct 45.8 MCV 85.8 MCH 27.7 MCHC 32.3 RDW 13.0 Plt Count 287 MPV 10.8 Immature Gran % (Auto) 0.4 Neut % (Auto) 61.8 Lymph % (Auto) 21.0 [place] % (Auto) 12.4 H Eos % (Auto) 3.9 Baso % (Auto) 0.5 Lymph # (Auto) 2.4 [place] # (Auto) 1.4 H Eos # (Auto) 0.5 H Baso # (Auto) 0.1 Abs Immat Gran (auto) 0.05 H Absolute Neuts (auto) 7.2 Absolute Nucleated RBC 0.000 Nucleated RBC % (auto) 0.0 Sodium 139 Potassium 4.5 Chloride 102 Carbon Dioxide 28 Anion Gap 14 BUN 17 H Creatinine 0.81 Estim Creat Clear Calc 187.6 Estimated GFR > 60 Fasting Glucose 97 Estimat Average Glucose Hemoglobin A1c % Calcium 9.4 Total Bilirubin 0.2 AST 32 ALT 47 H Alkaline Phosphatase 75 Total Protein 7.0 Albumin 4.5 TSH 2.21 Free T4 0.99 [place] COVID-19 (KELVIN) Negative COVID-19 Provasculon Com See Note 05/07/20 05/07/20 07:57 07:57 WBC RBC Hgb Hct MCV MCH MCHC RDW Plt Count MPV Immature Gran % (Auto) Neut % (Auto) Lymph % (Auto) [place] % (Auto) Eos % (Auto) Baso % (Auto) Lymph # (Auto) [place] # (Auto) Eos # (Auto) Baso # (Auto) Abs Immat Gran (auto) Absolute Neuts (auto) Absolute Nucleated RBC Nucleated RBC % (auto) Sodium Potassium Chloride Carbon Dioxide Anion Gap BUN Creatinine Estim Creat Clear Calc Estimated GFR Fasting Glucose Estimat Average Glucose 103 Hemoglobin A1c % 5.2 Calcium Total Bilirubin AST ALT Alkaline Phosphatase Total Protein Albumin TSH Free T4 [place] 0.33 L COVID-19 (KELVIN) COVID-19 Provasculon Com Meds/Allergies Meds Home Medications Acetaminophen (Acetaminophen 325 Mg Tablet) 650 mg PO Q6H PRN PRN Reason: Headache/Pain Mild Scale (1-3) Al Hydroxide/Mg Hydroxide (Magnesium Hydrox/Alum Hydrox 30 Ml Oral.Susp) 30 ml PO Q6H PRN PRN Reason: Heartburn/Nausea Benztropine Mesylate (Benztropine Mesylate 1 Mg Tablet) 1 mg PO RQ4H PRN PRN Reason: Extrapyramidal Effects Last Admin: 05/06/20 15:06 Dose: 1 mg Documented by: Chlorpromazine HCl (Chlorpromazine Hcl 25 Mg Tablet) 50 mg PO DAILY PRN PRN Reason: Psychosis Diphenhydramine HCl (Diphenhydramine Hcl 25 Mg Tablet) 50 mg PO BID PRN PRN Reason: Extrapyramidal Effects/anxiety Last Admin: 05/07/20 01:46 Dose: 50 mg Documented by: Haloperidol (Haloperidol 5 Mg Tablet) 5 mg PO BID YANI Last Admin: 05/07/20 08:38 Dose: 5 mg Documented by: Lamotrigine (Lamotrigine 100 Mg Tablet) 100 mg PO BID [facility] Last Admin: 05/07/20 08:37 Dose: 100 mg Documented by: [place] Carbonate ([place] Carbonate 300 Mg Capsule) 600 mg PO BID [facility] Last Admin: 05/07/20 08:38 Dose: 600 mg Documented by: Lorazepam (Lorazepam 1 Mg Tablet) 1 mg PO Q4H PRN PRN Reason: Anxiety/Restlessness Last Admin: 05/07/20 08:38 Dose: 1 mg Documented by: Lorazepam (Lorazepam 1 Mg Tablet) 1 mg PO Q4H PRN PRN Reason: Anxiety Magnesium Hydroxide (Milk Of Magnesia 30 Ml Oral.Susp) 30 ml PO DAILY PRN PRN Reason: Constipation Nicotine (Nicotine 14 Mg Patch.Td24) 14 mg TRANSDERMA DAILY PRN PRN Reason: Nicotine Cravings Nicotine Polacrilex (Nicotine Polacrilex 2 Mg Gum) 2 mg BUCCAL Q2H PRN PRN Reason: Nicotine Cravings Olanzapine (Olanzapine 5 Mg Tablet) 5 mg PO BEDTIME [facility] Last Admin: 05/06/20 20:46 Dose: 5 mg Documented by: Olanzapine (Olanzapine 5 Mg Tablet) 5 mg PO BEDTIME [facility] Olanzapine (Olanzapine 5 Mg Tablet) 5 mg PO Q4H PRN PRN Reason: Anxiety Oxcarbazepine (Oxcarbazepine 300 Mg Tablet) 300 mg PO BID [facility] Last Admin: 05/07/20 08:38 Dose: 300 mg Documented by: Trazodone HCl (Trazodone Hcl 50 Mg Tablet) 50 mg PO BEDTIME PRN PRN Reason: Insomnia Vitamin D (Cholecalciferol (Vitamin D3) 25 Mcg Tablet) 125 mcg PO DAILY [facility] Allergies Allergies Allergy/AdvReac Type Severity Reaction Status Date / Time No Known Allergies Allergy Verified 05/06/20 20:04 [No Known Allergies*] Mental Status Exam Mental Status Exam Patient Appearance: Well Grooomed Patient Orientation: Person, Place, Time and Situation Level of Consciousness: Appropriate Patient Behavior: Appropriate, Distractible and Good Eye Contact Mood Description: Calm Affect Description: Calm, Relaxed and Apprehensive Ability to Follow Directions: Good Speech Pattern: Clear and Spontaneous Speech Memory Description: Intact Hallucinations: None Delusions: Not Present Thought Process: Intact Thought Content: positive for Preoccupation, negative for Suicidal Ideation and negative for Homicidal Ideation Abnormal Motor Activity Signs and Symptoms: Hyperactivity Judgement: Fair Assessment & Plan Assessment & Plan (1) Bipolar disorder: Status: Acute Qualifiers: Active/Remission status: currently active Current bipolar episode type: manic Current episode severity: unspecified Qualified Code(s): F31.10 - Bipolar disorder, current episode manic without psychotic features, unspecified Code(s): F31.9 - Bipolar disorder, unspecified Assessment and Plan: naheed Beasley, lamictal and haldol CV, [address] Daily Patient educated on: diagnosis and medication risk/benefits Informed Consent: further education needed Reason for continued inpatient stay Substantial Risk for: harm to self and inability to function
[2020-05-07] MEDS: Benztropine Mesylate 1 MG TABLET PO (18:26)
[2020-05-07] MEDS: OLANZapine 5 MG TABLET PO ×2 (20:04→20:30)
[2020-05-07] MEDS: chlorproMAZINE HCl 25 MG TABLET 50 MG PO (20:49)
[2020-05-07 22:56] LABS: COVID-19 Test Negative (Negative)
[2020-05-08] MEDS: diphenhydrAMINE HCL 25 MG TABLET 50 MG PO (04:25)
[2020-05-08 05:55] VITALS: BP 148/66; PULSE 99; RESP 18; TEMP 36.8; O2SAT 98
[2020-05-08] MEDS: Acetaminophen 325 MG TABLET 650 MG PO (07:33)
[2020-05-08] MEDS: lamoTRIgine 100 MG TABLET PO ×2 (08:45→20:05)
[2020-05-08] MEDS: Lithium Carbonate 300 MG CAPSULE 600 MG PO ×2 (08:46→20:03)
[2020-05-08] MEDS: Cholecalciferol (Vitamin D3) 25 MCG TABLET 125 MCG PO (08:46)
[2020-05-08] MEDS: HaloperidoL 5 MG TABLET PO ×2 (08:50→20:06)
[2020-05-08] MEDS: OXcarbazepine 300 MG TABLET PO ×2 (08:51→20:06)
[2020-05-08] MEDS: Benztropine Mesylate 1 MG TABLET PO ×2 (08:52→18:50)
[2020-05-08] MEDS: LORazepam 1 MG TABLET PO ×2 (08:53→18:50)
[2020-05-08 16:45] VITALS: BP 151/76; PULSE 86; TEMP 36.4
--- NOTE | 2020-05-08 19:48 | HO.PSYCHPN ---
Subjective Subjective Date of Service: 05/08/20 Reason For Visit: SIXTO,SUICIDAL IDEATION Subjective Notes: Conditional Voluntary Interim History: Gino was pleasant and calmer. He slept well. He has not been intrusive. He has no side effects from his medications. He wants to be home by [place]. Medication Compliance: Yes Side effects from medications: No Attending Groups: Yes Review of Systems Acute medical concerns: No Medical Review of Systems: unchanged Mental Status Exam Mental Status Exam Patient Appearance: Well Grooomed Patient Orientation: Person, Place, Time and Situation Level of Consciousness: Appropriate Patient Behavior: Appropriate, Distractible and Good Eye Contact Mood Description: Calm Affect Description: Calm and Relaxed Ability to Follow Directions: Good Speech Pattern: Clear and Spontaneous Speech Memory Description: Intact Hallucinations: None Delusions: Not Present Thought Process: Intact Thought Content: positive for Preoccupation, negative for Suicidal Ideation and negative for Homicidal Ideation Judgement: Fair Diagnostics Vital Signs (24Hr): Vital Signs - 24 hr 05/08/20 05:55 05/08/20 16:45 Temperature 98.3 F 97.6 F Pulse Rate 99 86 Respiratory Rate 18 Blood Pressure 148/66 H 151/76 H Pulse Oximetry 98 Body Mass Index 34.5 Labs Results: 05/07/20 07:57 05/07/20 07:57 Labs: Laboratory Results - last 48 hr 05/07/20 05/07/20 05/07/20 07:57 07:57 07:57 WBC 11.6 H RBC 5.34 Hgb 14.8 Hct 45.8 MCV 85.8 MCH 27.7 MCHC 32.3 RDW 13.0 Plt Count 287 MPV 10.8 Immature Gran % (Auto) 0.4 Neut % (Auto) 61.8 Lymph % (Auto) 21.0 [place] % (Auto) 12.4 H Eos % (Auto) 3.9 Baso % (Auto) 0.5 Lymph # (Auto) 2.4 [place] # (Auto) 1.4 H Eos # (Auto) 0.5 H Baso # (Auto) 0.1 Abs Immat Gran (auto) 0.05 H Absolute Neuts (auto) 7.2 Absolute Nucleated RBC 0.000 Nucleated RBC % (auto) 0.0 Sodium 139 Potassium 4.5 Chloride 102 Carbon Dioxide 28 Anion Gap 14 BUN 17 H Creatinine 0.81 Estim Creat Clear Calc 187.6 Estimated GFR > 60 Fasting Glucose 97 Estimat Average Glucose 103 Hemoglobin A1c % 5.2 Calcium 9.4 Total Bilirubin 0.2 AST 32 ALT 47 H Alkaline Phosphatase 75 Total Protein 7.0 Albumin 4.5 TSH 2.21 Free T4 0.99 [place] COVID-19 (K[place]VIN) COVID-19 [place]ell[place]yt 05/07/20 05/07/20 07:57 22:15 WBC RBC Hgb Hct MCV MCH MCHC RDW Plt Count MPV Immature Gran % (Auto) Neut % (Auto) Lymph % (Auto) [place] % (Auto) Eos % (Auto) Baso % (Auto) Lymph # (Auto) [place] # (Auto) Eos # (Auto) Baso # (Auto) Abs Immat Gran (auto) Absolute Neuts (auto) Absolute Nucleated RBC Nucleated RBC % (auto) Sodium Potassium Chloride Carbon Dioxide Anion Gap BUN Creatinine Estim Creat Clear Calc Estimated GFR Fasting Glucose Estimat Average Glucose Hemoglobin A1c % Calcium Total Bilirubin AST ALT Alkaline Phosphatase Total Protein Albumin TSH Free T4 [place] 0.33 L COVID-19 (KELVIN) Negative COVID-19 Intellicyt See Note Medications Medications Current Medications Generic Name Dose Route Start Last Admin Trade Name Freq PRN Reason Stop Dose Admin Acetaminophen 650 mg 05/06/20 22:40 05/08/20 07:33 Acetaminophen 325 Mg Tablet PO 650 mg Q6H PRN Administration Headache/Pain Mild Scale (1-3) Al Hydroxide/Mg Hydroxide 30 ml 05/06/20 22:40 Magnesium Hydrox/Alum Hydrox 30 Ml Oral.Susp PO Q6H PRN Heartburn/Nausea Benztropine Mesylate 1 mg 05/05/20 20:28 05/08/20 18:50 Benztropine Mesylate 1 Mg Tablet PO 1 mg RQ4H PRN Administration Extrapyramidal Effects Chlorpromazine HCl 50 mg 05/06/20 22:53 05/07/20 20:49 Chlorpromazine Hcl 25 Mg Tablet PO 50 mg DAILY PRN Administration Psychosis Diphenhydramine HCl 50 mg 05/06/20 22:53 05/08/20 04:25 Diphenhydramine Hcl 25 Mg Tablet PO 50 mg BID PRN Administration Extrapyramidal Effects/anxiety Haloperidol 5 mg 05/05/20 21:00 05/08/20 08:50 Haloperidol 5 Mg Tablet PO 5 mg BID YANI Administration Lamotrigine 100 mg 05/05/20 21:00 05/08/20 08:45 Lamotrigine 100 Mg Tablet PO 100 mg BID YANI Administration [place] Carbonate 600 mg 05/05/20 21:00 05/08/20 08:46 [place] Carbonate 300 Mg Capsule PO 600 mg BID YANI Administration Lorazepam 1 mg 05/05/20 20:28 05/08/20 08:53 Lorazepam 1 Mg Tablet PO 1 mg Q4H PRN Administration Anxiety/Restlessness Lorazepam 1 mg 05/07/20 11:46 05/08/20 18:50 Lorazepam 1 Mg Tablet PO 1 mg Q4H PRN Administration Anxiety Magnesium Hydroxide 30 ml 05/06/20 22:40 Milk Of Magnesia 30 Ml Oral.Susp PO DAILY PRN Constipation Nicotine 14 mg 05/06/20 22:40 Nicotine 14 Mg Patch.Td24 TRANSDERMA DAILY PRN Nicotine Cravings Nicotine Polacrilex 2 mg 05/06/20 22:40 Nicotine Polacrilex 2 Mg Gum BUCCAL Q2H PRN Nicotine Cravings Olanzapine 5 mg 05/05/20 21:00 05/07/20 20:04 Olanzapine 5 Mg Tablet PO 5 mg BEDTIME YANI Administration Olanzapine 5 mg 05/07/20 21:00 05/07/20 20:30 Olanzapine 5 Mg Tablet PO 5 mg BEDTIME YANI Administration Olanzapine 5 mg 05/07/20 19:12 Olanzapine 5 Mg Tablet PO Q4H PRN Anxiety Oxcarbazepine 300 mg 05/05/20 21:00 05/08/20 08:51 Oxcarbazepine 300 Mg Tablet PO 300 mg BID YANI Administration Trazodone HCl 50 mg 05/06/20 22:40 Trazodone Hcl 50 Mg Tablet PO BEDTIME PRN Insomnia Vitamin D 125 mcg 05/08/20 09:00 05/08/20 08:46 Cholecalciferol (Vitamin D3) 25 Mcg Tablet PO 125 mcg DAILY YANI Administration Allergies Allergies Allergy/AdvReac Type Severity Reaction Status Date / Time No Known Allergies Allergy Verified 05/06/20 20:04 [No Known Allergies*] Assessment & Plan Assessment & Plan (1) Bipolar disorder: Qualifiers: Active/Remission status: currently active Current bipolar episode type: manic Current episode severity: unspecified Qualified Code(s): F31.10 - Bipolar disorder, current episode manic without psychotic features, unspecified Status: Acute Code(s): F31.9 - Bipolar disorder, unspecified Assessment and Plan: CT current plan Refer to [facility] Greater than 50% of the session was spent on counseling and/or coordination of care Patient educated on: diagnosis and medication risk/benefits Informed Consent: further education needed Reason for contiued inpatient stay Substantial Risk for: rapid decompensation
[2020-05-08] MEDS: OLANZapine 5 MG TABLET PO (20:04)
[2020-05-08] MEDS: Magnesium Hydrox/Alum Hydrox 30 ML ORAL.SUSP PO (20:18)
[2020-05-09] MEDS: Acetaminophen 325 MG TABLET 650 MG PO (00:09)
[2020-05-09] MEDS: traZODone HCL 50 MG TABLET PO (00:09)
[2020-05-09 04:45] VITALS: BP 118/53; PULSE 84; RESP 18; TEMP 36.7; O2SAT 97
[2020-05-09] MEDS: OXcarbazepine 300 MG TABLET PO ×2 (08:44→20:37)
[2020-05-09] MEDS: Cholecalciferol (Vitamin D3) 25 MCG TABLET 125 MCG PO (08:44)
[2020-05-09] MEDS: lamoTRIgine 100 MG TABLET PO ×2 (08:44→20:37)
[2020-05-09] MEDS: Lithium Carbonate 300 MG CAPSULE 600 MG PO ×2 (08:45→20:36)
[2020-05-09] MEDS: HaloperidoL 5 MG TABLET PO ×2 (08:45→20:37)
[2020-05-09] MEDS: LORazepam 1 MG TABLET PO (10:48)
[2020-05-09] MEDS: Benztropine Mesylate 1 MG TABLET PO ×2 (10:48→18:41)
--- NOTE | 2020-05-09 11:59 | P.PNPSI_ITS ---
Subjective Subjective Date of Service: 05/09/20 Reason For Visit: SIXTO,SUICIDAL IDEATION Subjective Notes: Conditional Voluntary Interim History: I am OK. The medicine helps I dont have nausea today I did have one question, but I cannot remember it. I will find you when I remember. Reports he is feeling well. No current concerns. Medication Compliance: Yes Side effects from medications: No (denies) Attending Groups: Intermittent Review of Systems Review of Systems Yes all other systems are reviewed and are negative Psychiatric: Reports other (calm today, states regime is taking effect.) Mental Status Exam Mental Status Exam Patient Appearance: Well Grooomed and Appropriate Patient Orientation: Person, Place, Time and Situation Level of Consciousness: Awake, Appropriate and Alert Patient Behavior: Appropriate Mood Description: Calm Affect Description: Flat Patient Cognition Impaired: No Ability to Follow Directions: Good Speech Pattern: Appropriate and Spontaneous Speech Memory Description: Intact Hallucinations: None Delusions: Not Present Thought Process: Intact Thought Content: positive for Intact Judgement: Fair Diagnostics Vital Signs (24Hr): Vital Signs - 24 hr 05/08/20 16:45 05/09/20 04:45 Temperature 97.6 F 98.1 F Pulse Rate 86 84 Respiratory Rate 18 Blood Pressure 151/76 H 118/53 L Pulse Oximetry 97 Body Mass Index 34.5 Labs Results: 05/07/20 07:57 05/07/20 07:57 Labs: Laboratory Results - last 48 hr 05/07/20 22:15 COVID-19 ([facility]) Negative COVID-19 Clin Com See Note Medications Medications Current Medications Generic Name Dose Route Start Last Admin Trade Name Freq PRN Reason Stop Dose Admin Acetaminophen 650 mg 05/06/20 22:40 05/09/20 00:09 Acetaminophen 325 Mg Tablet PO 650 mg Q6H PRN Administration Headache/Pain Mild Scale (1-3) Al Hydroxide/Mg Hydroxide 30 ml 05/06/20 22:40 05/08/20 20:18 Magnesium Hydrox/Alum Hydrox 30 Ml Oral.Susp PO 30 ml Q6H PRN Administration Heartburn/Nausea Benztropine Mesylate 1 mg 05/05/20 20:28 05/09/20 10:48 Benztropine Mesylate 1 Mg Tablet PO 1 mg RQ4H PRN Administration Extrapyramidal Effects Chlorpromazine HCl 50 mg 05/06/20 22:53 12/15/20 20:49 Chlorpromazine Hcl 25 Mg Tablet PO 50 mg DAILY PRN Administration Psychosis Diphenhydramine HCl 50 mg 05/06/20 22:53 05/08/20 04:25 Diphenhydramine Hcl 25 Mg Tablet PO 50 mg BID PRN Administration Extrapyramidal Effects/anxiety Haloperidol 5 mg 05/05/20 21:00 05/09/20 08:45 Haloperidol 5 Mg Tablet PO 5 mg BID YANI Administration Lamotrigine 100 mg 05/05/20 21:00 05/09/20 08:44 Lamotrigine 100 Mg Tablet PO 100 mg BID YANI Administration [place] Carbonate 600 mg 05/05/20 21:00 05/09/20 08:45 [place] Carbonate 300 Mg Capsule PO 600 mg BID YANI Administration Lorazepam 1 mg 05/05/20 20:28 05/09/20 10:48 Lorazepam 1 Mg Tablet PO 1 mg Q4H PRN Administration Anxiety/Restlessness Lorazepam 1 mg 05/07/20 11:46 05/08/20 18:50 Lorazepam 1 Mg Tablet PO 1 mg Q4H PRN Administration Anxiety Magnesium Hydroxide 30 ml 05/06/20 22:40 Milk Of Magnesia 30 Ml Oral.Susp PO DAILY PRN Constipation Nicotine 14 mg 05/06/20 22:40 Nicotine 14 Mg Patch.Td24 TRANSDERMA DAILY PRN Nicotine Cravings Nicotine Polacrilex 2 mg 05/06/20 22:40 Nicotine Polacrilex 2 Mg Gum BUCCAL Q2H PRN Nicotine Cravings Olanzapine 5 mg 05/05/20 21:00 05/08/20 20:04 Olanzapine 5 Mg Tablet PO 05/09/20 12:00 5 mg BEDTIME YANI Administration Olanzapine 5 mg 05/07/20 21:00 05/08/20 20:17 Olanzapine 5 Mg Tablet PO Not Given BEDTIME YANI Olanzapine 5 mg 05/07/20 19:12 Olanzapine 5 Mg Tablet PO Q4H PRN Anxiety Oxcarbazepine 300 mg 05/05/20 21:00 05/09/20 08:44 Oxcarbazepine 300 Mg Tablet PO 300 mg BID YANI Administration Trazodone HCl 50 mg 05/06/20 22:40 05/09/20 00:09 Trazodone Hcl 50 Mg Tablet PO 50 mg BEDTIME PRN Administration Insomnia Vitamin D 125 mcg 05/08/20 09:00 05/09/20 08:44 Cholecalciferol (Vitamin D3) 25 Mcg Tablet PO 125 mcg DAILY YANI Administration Allergies Allergies Allergy/AdvReac Type Severity Reaction Status Date / Time No Known Allergies Allergy Verified 05/06/20 20:04 [No Known Allergies*] Assessment & Plan Assessment & Plan (1) Bipolar disorder: Qualifiers: Active/Remission status: currently active Current bipolar episode type: manic Current episode severity: unspecified Qualified Code(s): F31.10 - Bipolar disorder, current episode manic without psychotic features, unspecified Status: Acute Code(s): F31.9 - Bipolar disorder, unspecified Assessment and Plan: -Continue current regime Greater than 50% of the session was spent on counseling and/or coordination of care Patient educated on: diagnosis, medication risk/benefits and therapeutic strategies Informed Consent: further education needed Reason for contiued inpatient stay Substantial Risk for: harm to self, inability to function and rapid decompensation
[2020-05-09 18:00] VITALS: BP 144/69; PULSE 97; TEMP 36.6
[2020-05-09] MEDS: OLANZapine 5 MG TABLET PO (20:38)
[2020-05-10] MEDS: traZODone HCL 50 MG TABLET PO ×2 (00:19→22:28)
[2020-05-10] MEDS: LORazepam 1 MG TABLET PO ×3 (00:19→17:05)
[2020-05-10 06:10] VITALS: BP 137/78; PULSE 82; RESP 20; TEMP 36.7; O2SAT 97
[2020-05-10 08:19] LABS: Lithium 0.32 mmol/L (0.60-1.20)
[2020-05-10] MEDS: lamoTRIgine 100 MG TABLET PO ×2 (08:28→20:11)
[2020-05-10] MEDS: Cholecalciferol (Vitamin D3) 25 MCG TABLET 125 MCG PO (08:28)
[2020-05-10] MEDS: OXcarbazepine 300 MG TABLET PO ×2 (08:29→20:11)
[2020-05-10] MEDS: Lithium Carbonate 300 MG CAPSULE 600 MG PO ×2 (08:29→20:10)
[2020-05-10] MEDS: HaloperidoL 5 MG TABLET PO ×2 (08:29→20:11)
--- NOTE | 2020-05-10 11:33 | P.PNPSI_ITS ---
Subjective Subjective Date of Service: 05/10/20 Reason For Visit: SIXTO,SUICIDAL IDEATION Subjective Notes: Conditional Voluntary Interim History: Gino continues to improve. He is taking his medication and he is tolerating the same. He is in behavioral control and is even in his mood. He is sleeping adequately. LUCIE will be in touch with his mother re: DC 05/14/20 [facility] applictation is pending. Medication Compliance: Yes Side effects from medications: No Attending Groups: Yes Review of Systems Acute medical concerns: No Medical Review of Systems: unchanged Mental Status Exam Mental Status Exam Patient Appearance: Well Grooomed and Appropriate Patient Orientation: Person, Place, Time and Situation Level of Consciousness: Awake, Appropriate and Alert Patient Behavior: Appropriate Mood Description: Calm Affect Description: Calm Patient Cognition Impaired: No Ability to Follow Directions: Good Speech Pattern: Appropriate and Spontaneous Speech Memory Description: Intact Hallucinations: None Delusions: Not Present Thought Process: Intact Thought Content: positive for Intact, negative for Suicidal Ideation and negative for Homicidal Ideation Judgement: Fair Diagnostics Vital Signs (24Hr): Vital Signs - 24 hr 05/09/20 18:00 05/10/20 06:10 Temperature 97.8 F 98.1 F Pulse Rate 97 82 Respiratory Rate 20 Blood Pressure 144/69 H 137/78 Pulse Oximetry 97 Body Mass Index 34.5 Labs Results: 05/07/20 07:57 05/07/20 07:57 Labs: Laboratory Results - last 48 hr 05/10/20 07:26 [place] 0.32 L Medications Medications Current Medications Generic Name Dose Route Start Last Admin Trade Name Freq PRN Reason Stop Dose Admin Acetaminophen 650 mg 05/06/20 22:40 05/09/20 00:09 Acetaminophen 325 Mg Tablet PO 650 mg Q6H PRN Administration Headache/Pain Mild Scale (1-3) Al Hydroxide/Mg Hydroxide 30 ml 05/06/20 22:40 05/08/20 20:18 Magnesium Hydrox/Alum Hydrox 30 Ml Oral.Susp PO 30 ml Q6H PRN Administration Heartburn/Nausea Benztropine Mesylate 1 mg 05/05/20 20:28 05/09/20 18:41 Benztropine Mesylate 1 Mg Tablet PO 1 mg RQ4H PRN Administration Extrapyramidal Effects Chlorpromazine HCl 50 mg 05/06/20 22:53 05/07/20 20:49 Chlorpromazine Hcl 25 Mg Tablet PO 50 mg DAILY PRN Administration Psychosis Diphenhydramine HCl 50 mg 05/06/20 22:53 05/08/20 04:25 Diphenhydramine Hcl 25 Mg Tablet PO 50 mg BID PRN Administration Extrapyramidal Effects/anxiety Haloperidol 5 mg 05/05/20 21:00 05/10/20 08:29 Haloperidol 5 Mg Tablet PO 5 mg BID YANI Administration Lamotrigine 100 mg 05/05/20 21:00 05/10/20 08:28 Lamotrigine 100 Mg Tablet PO 100 mg BID YANI Administration [place] Carbonate 600 mg 05/05/20 21:00 05/10/20 08:29 [place] Carbonate 300 Mg Capsule PO 600 mg BID YANI Administration Lorazepam 1 mg 05/05/20 20:28 05/10/20 00:19 Lorazepam 1 Mg Tablet PO 1 mg Q4H PRN Administration Anxiety/Restlessness Lorazepam 1 mg 05/07/20 11:46 05/10/20 08:29 Lorazepam 1 Mg Tablet PO 1 mg Q4H PRN Administration Anxiety Magnesium Hydroxide 30 ml 05/06/20 22:40 Milk Of Magnesia 30 Ml Oral.Susp PO DAILY PRN Constipation Nicotine 14 mg 05/06/20 22:40 Nicotine 14 Mg Patch.Td24 TRANSDERMA DAILY PRN Nicotine Cravings Nicotine Polacrilex 2 mg 05/06/20 22:40 Nicotine Polacrilex 2 Mg Gum BUCCAL Q2H PRN Nicotine Cravings Olanzapine 5 mg 05/07/20 21:00 05/09/20 20:38 Olanzapine 5 Mg Tablet PO 5 mg BEDTIME YANI Administration Olanzapine 5 mg 05/07/20 19:12 Olanzapine 5 Mg Tablet PO Q4H PRN Anxiety Oxcarbazepine 300 mg 05/05/20 21:00 05/10/20 08:29 Oxcarbazepine 300 Mg Tablet PO 300 mg BID YANI Administration Trazodone HCl 50 mg 05/06/20 22:40 05/10/20 00:19 Trazodone Hcl 50 Mg Tablet PO 50 mg BEDTIME PRN Administration Insomnia Vitamin D 125 mcg 05/08/20 09:00 05/10/20 08:28 Cholecalciferol (Vitamin D3) 25 Mcg Tablet PO 125 mcg DAILY YANI Administration Allergies Allergies Allergy/AdvReac Type Severity Reaction Status Date / Time No Known Allergies Allergy Verified 05/06/20 20:04 [No Known Allergies*] Assessment & Plan Assessment & Plan (1) Bipolar disorder: Qualifiers: Active/Remission status: currently active Current bipolar episode type: manic Current episode severity: unspecified Qualified Code(s): F31.10 - Bipolar disorder, current episode manic without psychotic features, unspecified Status: Acute Code(s): F31.9 - Bipolar disorder, unspecified Assessment and Plan: CT current plan Anticipate DC 05/14/20 Greater than 50% of the session was spent on counseling and/or coordination of care Patient educated on: diagnosis and medication risk/benefits Informed Consent: understands Reason for contiued inpatient stay Substantial Risk for: rapid decompensation
[2020-05-10 18:00] VITALS: BP 135/71; BP 155/68; PULSE 82; PULSE 99; TEMP 36.3; TEMP 36.6
[2020-05-10] MEDS: OLANZapine 5 MG TABLET PO (20:10)
[2020-05-10] MEDS: Benztropine Mesylate 1 MG TABLET PO (22:17)
[2020-05-11 06:00] VITALS: BP 155/68; PULSE 99; TEMP 36.3
[2020-05-11 08:51] LABS: Estimated Average Glucose 103 mg/dL; Hemoglobin A1c % 5.2 %
[2020-05-11] MEDS: lamoTRIgine 100 MG TABLET PO ×2 (08:54→20:39)
[2020-05-11] MEDS: Cholecalciferol (Vitamin D3) 25 MCG TABLET 125 MCG PO (08:54)
[2020-05-11] MEDS: HaloperidoL 5 MG TABLET PO ×2 (08:55→20:38)
[2020-05-11] MEDS: Lithium Carbonate 300 MG CAPSULE 600 MG PO ×2 (08:55→20:39)
[2020-05-11] MEDS: OXcarbazepine 300 MG TABLET PO ×2 (08:55→20:39)
[2020-05-11 09:04] LABS: Cholesterol 143 mg/dL; HDL Cholesterol 48 mg/dL; LDL Cholesterol Calculated 65 mg/dl; Triglycerides 152 mg/dL
[2020-05-11] MEDS: LORazepam 1 MG TABLET PO ×2 (10:19→19:04)
[2020-05-11] MEDS: Benztropine Mesylate 1 MG TABLET PO (10:19)
--- NOTE | 2020-05-11 11:42 | HO.PSYADMNOT ---
HPI Chief Complaint: GIULIANA,SUICIDAL IDEATION HPI Past Psychiatric History: 3 admissions to Required iv ketamine during one stay due to his giuliana. Shamir Daily is his outpatient psychiatrist Rosendo Bains is his therapist He has been on multiple medications in the past including depakote, abilify, latuda, and Li PMFSH Medical History Anxiety Bipolar 1 disorder with moderate giuliana Depression No known health problems Family History: Family history is significant for bipolar disorder and alcohol use disorder Social History: Lives with his mother Trauma History: Denies Diagnostics Vital Signs (24Hr): Vital Signs - 24 hr 05/10/20 18:00 05/11/20 06:00 Temperature 97.3 F 97.3 F Pulse Rate 99 99 Blood Pressure 155/68 H 155/68 H Body Mass Index 34.5 Labs Results: 05/07/20 07:57 05/07/20 07:57 Labs: Laboratory Results - last 48 hr 05/10/20 05/11/20 05/11/20 07:26 08:18 08:18 Estimat Average Glucose 103 Hemoglobin A1c % 5.2 Triglycerides 152 Cholesterol 143 LDL Cholesterol, Calc 65 HDL Cholesterol 48 [place] 0.32 L Meds/Allergies Meds Home Medications Acetaminophen (Acetaminophen 325 Mg Tablet) 650 mg PO Q6H PRN PRN Reason: Headache/Pain Mild Scale (1-3) Last Admin: 05/09/20 00:09 Dose: 650 mg Documented by: Al Hydroxide/Mg Hydroxide (Magnesium Hydrox/Alum Hydrox 30 Ml Oral.Susp) 30 ml PO Q6H PRN PRN Reason: Heartburn/Nausea Last Admin: 05/08/20 20:18 Dose: 30 ml Documented by: Benztropine Mesylate (Benztropine Mesylate 1 Mg Tablet) 1 mg PO RQ4H PRN PRN Reason: Extrapyramidal Effects Last Admin: 05/11/20 10:19 Dose: 1 mg Documented by: Chlorpromazine HCl (Chlorpromazine Hcl 25 Mg Tablet) 50 mg PO DAILY PRN PRN Reason: Psychosis Last Admin: 05/07/20 20:49 Dose: 50 mg Documented by: Diphenhydramine HCl (Diphenhydramine Hcl 25 Mg Tablet) 50 mg PO BID PRN PRN Reason: Extrapyramidal Effects/anxiety Last Admin: 12/16/20 04:25 Dose: 50 mg Documented by: Haloperidol (Haloperidol 5 Mg Tablet) 5 mg PO BID [facility] Last Admin: 05/11/20 08:55 Dose: 5 mg Documented by: Lamotrigine (Lamotrigine 100 Mg Tablet) 100 mg PO BID [facility] Last Admin: 05/11/20 08:54 Dose: 100 mg Documented by: [place] Carbonate ([place] Carbonate 300 Mg Capsule) 600 mg PO BID [facility] Last Admin: 05/11/20 08:55 Dose: 600 mg Documented by: Lorazepam (Lorazepam 1 Mg Tablet) 1 mg PO Q4H PRN PRN Reason: Anxiety Last Admin: 05/11/20 10:19 Dose: 1 mg Documented by: Magnesium Hydroxide (Milk Of Magnesia 30 Ml Oral.Susp) 30 ml PO DAILY PRN PRN Reason: Constipation Nicotine (Nicotine 14 Mg Patch.Td24) 14 mg TRANSDERMA DAILY PRN PRN Reason: Nicotine Cravings Nicotine Polacrilex (Nicotine Polacrilex 2 Mg Gum) 2 mg BUCCAL Q2H PRN PRN Reason: Nicotine Cravings Olanzapine (Olanzapine 5 Mg Tablet) 5 mg PO BEDTIME [facility] Last Admin: 05/10/20 20:10 Dose: 5 mg Documented by: Olanzapine (Olanzapine 5 Mg Tablet) 5 mg PO Q4H PRN PRN Reason: Anxiety Oxcarbazepine (Oxcarbazepine 300 Mg Tablet) 300 mg PO BID [facility] Last Admin: 05/11/20 08:55 Dose: 300 mg Documented by: Trazodone HCl (Trazodone Hcl 50 Mg Tablet) 50 mg PO BEDTIME PRN PRN Reason: Insomnia Last Admin: 05/10/20 22:28 Dose: 50 mg Documented by: Vitamin D (Cholecalciferol (Vitamin D3) 25 Mcg Tablet) 125 mcg PO DAILY [facility] Last Admin: 05/11/20 08:54 Dose: 125 mcg Documented by: Allergies Allergies Allergy/AdvReac Type Severity Reaction Status Date / Time No Known Allergies Allergy Verified 05/06/20 20:04 [No Known Allergies*] Mental Status Exam Mental Status Exam Patient Appearance: Well Grooomed and Appropriate Patient Orientation: Person, Place, Time and Situation Level of Consciousness: Awake, Appropriate and Alert Patient Behavior: Appropriate Mood Description: Calm Affect Description: Calm Patient Cognition Impaired: No Ability to Follow Directions: Good Speech Pattern: Appropriate and Spontaneous Speech Memory Description: Intact Assessment & Plan Assessment & Plan (1) Bipolar disorder: Status: Acute Qualifiers: Active/Remission status: currently active Current bipolar episode type: manic Current episode severity: unspecified Qualified Code(s): F31.10 - Bipolar disorder, current episode manic without psychotic features, unspecified Code(s): F31.9 - Bipolar disorder, unspecified Assessment and Plan: CT current plan Anticipate DC 05/14/20
[2020-05-11] MEDS: OLANZapine 5 MG TABLET PO ×2 (12:44→20:39)
--- NOTE | 2020-05-11 17:52 | HO.PSYCHPN ---
Subjective Subjective Date of Service: 05/11/20 Reason For Visit: SIXTO,SUICIDAL IDEATION Interim History: Gino mood is labile; He had a period of time when he was irritable and verbally hostil this morning and then later was able to say he was anxious at the time and stated he was no longer demanding to leave and he will stay and get the appropriate treatment. He is taking his medication and he is tolerating the same. He is in behavioral control. Review of Systems Review of Systems Constitutional: No Weight loss, No Fever, No Chills Cardiovascular: No Chest Pain, No SOB Respiratory: No Cough, No Sputum Gastrointestinal: No Nausea, No Vomiting, No Diarrhea, No Constipation, No Abdominal pain Musculoskeletal: No joint pain, No Myalgias, No Joint Swelling Skin: No Skin Lesions, No rash Psych: + Anxiety, + Depression, + SI/HI, +AH, No VH Mental Status Exam Mental Status Exam Patient Appearance: Well Grooomed and Appropriate Patient Orientation: Person, Place, Time and Situation Level of Consciousness: Awake, Appropriate and Alert Patient Behavior: Appropriate Mood Description: Calm Affect Description: Calm Patient Cognition Impaired: No Ability to Follow Directions: Good Speech Pattern: Appropriate and Spontaneous Speech Memory Description: Intact Diagnostics Vital Signs (24Hr): Vital Signs - 24 hr 05/10/20 18:00 05/11/20 06:00 Temperature 97.3 F 97.3 F Pulse Rate 99 99 Blood Pressure 155/68 H 155/68 H Body Mass Index 34.5 Labs Results: 05/07/20 07:57 05/07/20 07:57 Labs: Laboratory Results - last 48 hr 05/10/20 05/11/20 05/11/20 07:26 08:18 08:18 Estimat Average Glucose 103 Hemoglobin A1c % 5.2 Triglycerides 152 Cholesterol 143 LDL Cholesterol, Calc 65 HDL Cholesterol 48 [place] 0.32 L Medications Medications Current Medications Generic Name Dose Route Start Last Admin Trade Name Freq PRN Reason Stop Dose Admin Acetaminophen 650 mg 05/06/20 22:40 05/09/20 00:09 Acetaminophen 325 Mg Tablet PO 650 mg Q6H PRN Administration Headache/Pain Mild Scale (1-3) Al Hydroxide/Mg Hydroxide 30 ml 05/06/20 22:40 05/08/20 20:18 Magnesium Hydrox/Alum Hydrox 30 Ml Oral.Susp PO 30 ml Q6H PRN Administration Heartburn/Nausea Benztropine Mesylate 1 mg 05/05/20 20:28 05/11/20 10:19 Benztropine Mesylate 1 Mg Tablet PO 1 mg RQ4H PRN Administration Extrapyramidal Effects Chlorpromazine HCl 50 mg 05/06/20 22:53 05/07/20 20:49 Chlorpromazine Hcl 25 Mg Tablet PO 50 mg DAILY PRN Administration Psychosis Diphenhydramine HCl 50 mg 05/06/20 22:53 05/08/20 04:25 Diphenhydramine Hcl 25 Mg Tablet PO 50 mg BID PRN Administration Extrapyramidal Effects/anxiety Haloperidol 5 mg 05/05/20 21:00 05/11/20 08:55 Haloperidol 5 Mg Tablet PO 5 mg BID YANI Administration Lamotrigine 100 mg 05/05/20 21:00 05/11/20 08:54 Lamotrigine 100 Mg Tablet PO 100 mg BID YANI Administration [place] Carbonate 600 mg 05/05/20 21:00 05/11/20 08:55 [place] Carbonate 300 Mg Capsule PO 600 mg BID YANI Administration Lorazepam 1 mg 05/07/20 11:46 05/11/20 10:19 Lorazepam 1 Mg Tablet PO 1 mg Q4H PRN Administration Anxiety Magnesium Hydroxide 30 ml 05/06/20 22:40 Milk Of Magnesia 30 Ml Oral.Susp PO DAILY PRN Constipation Nicotine 14 mg 05/06/20 22:40 Nicotine 14 Mg Patch.Td24 TRANSDERMA DAILY PRN Nicotine Cravings Nicotine Polacrilex 2 mg 05/06/20 22:40 Nicotine Polacrilex 2 Mg Gum BUCCAL Q2H PRN Nicotine Cravings Olanzapine 5 mg 05/07/20 21:00 05/10/20 20:10 Olanzapine 5 Mg Tablet PO 5 mg BEDTIME YANI Administration Olanzapine 5 mg 05/07/20 19:12 05/11/20 12:44 Olanzapine 5 Mg Tablet PO 5 mg Q4H PRN Administration Anxiety Oxcarbazepine 300 mg 05/05/20 21:00 05/11/20 08:55 Oxcarbazepine 300 Mg Tablet PO 300 mg BID YANI Administration Trazodone HCl 50 mg 05/06/20 22:40 05/10/20 22:28 Trazodone Hcl 50 Mg Tablet PO 50 mg BEDTIME PRN Administration Insomnia Vitamin D 125 mcg 05/08/20 09:00 05/11/20 08:54 Cholecalciferol (Vitamin D3) 25 Mcg Tablet PO 125 mcg DAILY YANI Administration Allergies Allergies Allergy/AdvReac Type Severity Reaction Status Date / Time No Known Allergies Allergy Verified 05/06/20 20:04 [No Known Allergies*] Assessment & Plan Assessment & Plan (1) Bipolar disorder: Qualifiers: Active/Remission status: currently active Current bipolar episode type: manic Current episode severity: unspecified Qualified Code(s): F31.10 - Bipolar disorder, current episode manic without psychotic features, unspecified Status: Acute Code(s): F31.9 - Bipolar disorder, unspecified Assessment and Plan: CT current plan Anticipate DC 05/14/20 Greater than 50% of the session was spent on counseling and/or coordination of care Patient educated on: diagnosis, medication risk/benefits and therapeutic strategies Informed Consent: understands Reason for contiued inpatient stay Substantial Risk for: inability to function and rapid decompensation
[2020-05-11 18:00] VITALS: BP 122/70; PULSE 97; TEMP 36.6
[2020-05-11] MEDS: traZODone HCL 50 MG TABLET PO (21:46)
[2020-05-12] MEDS: traZODone HCL 50 MG TABLET PO ×2 (02:47→20:02)
[2020-05-12 06:00] VITALS: BP 138/81; PULSE 85; RESP 16; TEMP 36.8; O2SAT 99
[2020-05-12] MEDS: Lithium Carbonate 300 MG CAPSULE 600 MG PO ×2 (08:06→20:01)
[2020-05-12] MEDS: lamoTRIgine 100 MG TABLET PO ×2 (08:06→20:02)
[2020-05-12] MEDS: Cholecalciferol (Vitamin D3) 25 MCG TABLET 125 MCG PO (08:06)
[2020-05-12] MEDS: OXcarbazepine 300 MG TABLET PO ×2 (08:06→20:02)
[2020-05-12] MEDS: HaloperidoL 5 MG TABLET PO ×2 (08:06→20:01)
[2020-05-12] MEDS: Acetaminophen 325 MG TABLET 650 MG PO (10:54)
--- NOTE | 2020-05-12 13:10 | P.PNPSI_ITS ---
Subjective Subjective Date of Service: 05/12/20 Reason For Visit: SIXTO,SUICIDAL IDEATION Interim History: Gino mood is still labile but improving; He is calmer and cooperative; He is making hopeful statements; He is intermittently anxious and pacing. Stating he wants to cooperate with treatment. He is taking his medication and he is tolerating the same. He is in behavioral control. Review of Systems Review of Systems Constitutional: No Weight loss, No Fever, No Chills Cardiovascular: No Chest Pain, No SOB Respiratory: No Cough, No Sputum Gastrointestinal: No Nausea, No Vomiting, No Diarrhea, No Constipation, No Abdominal pain Musculoskeletal: No joint pain, No Myalgias, No Joint Swelling Skin: No Skin Lesions, No rash Psych: + Anxiety, + Depression, + SI/HI, +AH, No VH Mental Status Exam Mental Status Exam Patient Appearance: Well Grooomed and Appropriate Patient Orientation: Person, Place, Time and Situation Level of Consciousness: Awake, Appropriate and Alert Patient Behavior: Appropriate and Restless Mood Description: Calm Affect Description: Calm Patient Cognition Impaired: No Ability to Follow Directions: Good Speech Pattern: Appropriate and Spontaneous Speech Memory Description: Intact Thought Process: Racing and Distracted Thought Content: positive for Racing Judgement: Good Diagnostics Vital Signs (24Hr): Vital Signs - 24 hr 05/11/20 18:00 05/12/20 06:00 Temperature 98 F 98.2 F Pulse Rate 97 85 Respiratory Rate 16 Blood Pressure 122/70 138/81 Pulse Oximetry 99 Body Mass Index 34.5 Labs Results: 05/07/20 07:57 05/07/20 07:57 Labs: Laboratory Results - last 48 hr 05/11/20 05/11/20 08:18 08:18 Estimat Average Glucose 103 Hemoglobin A1c % 5.2 Triglycerides 152 Cholesterol 143 LDL Cholesterol, Calc 65 HDL Cholesterol 48 Medications Medications Current Medications Generic Name Dose Route Start Last Admin Trade Name Freq PRN Reason Stop Dose Admin Acetaminophen 650 mg 05/06/20 22:40 05/12/20 10:54 Acetaminophen 325 Mg Tablet PO 650 mg Q6H PRN Administration Headache/Pain Mild Scale (1-3) Al Hydroxide/Mg Hydroxide 30 ml 05/06/20 22:40 05/08/20 20:18 Magnesium Hydrox/Alum Hydrox 30 Ml Oral.Susp PO 30 ml Q6H PRN Administration Heartburn/Nausea Benztropine Mesylate 1 mg 05/05/20 20:28 05/11/20 10:19 Benztropine Mesylate 1 Mg Tablet PO 1 mg RQ4H PRN Administration Extrapyramidal Effects Chlorpromazine HCl 50 mg 05/06/20 22:53 05/07/20 20:49 Chlorpromazine Hcl 25 Mg Tablet PO 50 mg DAILY PRN Administration Psychosis Diphenhydramine HCl 50 mg 05/06/20 22:53 05/08/20 04:25 Diphenhydramine Hcl 25 Mg Tablet PO 50 mg BID PRN Administration Extrapyramidal Effects/anxiety Haloperidol 5 mg 05/05/20 21:00 05/12/20 08:06 Haloperidol 5 Mg Tablet PO 5 mg BID YANI Administration Lamotrigine 100 mg 05/05/20 21:00 05/12/20 08:06 Lamotrigine 100 Mg Tablet PO 100 mg BID YANI Administration [place] Carbonate 600 mg 05/05/20 21:00 05/12/20 08:06 [place] Carbonate 300 Mg Capsule PO 600 mg BID YANI Administration Magnesium Hydroxide 30 ml 05/06/20 22:40 Milk Of Magnesia 30 Ml Oral.Susp PO DAILY PRN Constipation Nicotine 14 mg 05/06/20 22:40 Nicotine 14 Mg Patch.Td24 TRANSDERMA DAILY PRN Nicotine Cravings Nicotine Polacrilex 2 mg 05/06/20 22:40 Nicotine Polacrilex 2 Mg Gum BUCCAL Q2H PRN Nicotine Cravings Olanzapine 5 mg 05/07/20 21:00 05/11/20 20:39 Olanzapine 5 Mg Tablet PO 5 mg BEDTIME YANI Administration Olanzapine 5 mg 05/07/20 19:12 05/11/20 12:44 Olanzapine 5 Mg Tablet PO 5 mg Q4H PRN Administration Anxiety Oxcarbazepine 300 mg 05/05/20 21:00 05/12/20 08:06 Oxcarbazepine 300 Mg Tablet PO 300 mg BID YANI Administration Trazodone HCl 50 mg 05/06/20 22:40 05/12/20 02:47 Trazodone Hcl 50 Mg Tablet PO 50 mg BEDTIME PRN Administration Insomnia Vitamin D 125 mcg 05/08/20 09:00 05/12/20 08:06 Cholecalciferol (Vitamin D3) 25 Mcg Tablet PO 125 mcg DAILY YANI Administration Allergies Allergies Allergy/AdvReac Type Severity Reaction Status Date / Time No Known Allergies Allergy Verified 05/06/20 20:04 [No Known Allergies*] Assessment & Plan Assessment & Plan (1) Bipolar disorder: Qualifiers: Active/Remission status: currently active Current bipolar episode type: manic Current episode severity: unspecified Qualified Code(s): F31.10 - Bipolar disorder, current episode manic without psychotic features, unspecified Status: Acute Code(s): F31.9 - Bipolar disorder, unspecified Assessment and Plan: CT current plan Anticipate DC 05/14/20 Greater than 50% of the session was spent on counseling and/or coordination of care
[2020-05-12] MEDS: Benztropine Mesylate 1 MG TABLET PO (13:27)
[2020-05-12] MEDS: OLANZapine 5 MG TABLET PO ×2 (13:48→20:02)
[2020-05-12] MEDS: LORazepam 1 MG TABLET PO (17:11)
[2020-05-12 18:00] VITALS: BP 170/72; PULSE 88; TEMP 37.1
[2020-05-13] MEDS: OLANZapine 5 MG TABLET PO (02:56)
[2020-05-13 05:50] VITALS: BP 130/62; PULSE 90; RESP 16; TEMP 36.6; O2SAT 98
[2020-05-13] MEDS: Cholecalciferol (Vitamin D3) 25 MCG TABLET 125 MCG PO (08:45)
[2020-05-13] MEDS: lamoTRIgine 100 MG TABLET PO (08:46)
[2020-05-13] MEDS: OXcarbazepine 300 MG TABLET PO (08:46)
[2020-05-13] MEDS: HaloperidoL 5 MG TABLET PO (08:46)
[2020-05-13] MEDS: Lithium Carbonate 300 MG CAPSULE 600 MG PO (08:47)
[2020-05-13] MEDS: LORazepam 1 MG TABLET PO (09:20)
--- NOTE | 2020-05-13 17:29 | PM.PSYDC ---
DS: Providers Provider Date of admission: 05/06/20 22:41 Date of discharge: 05/13/20 Primary care physician: Brian Collins PA-C Admitting clinician: Naty Morales Attending physician on admission: Naty Morales Attending physician on discharge: Fina Tam Discharging clinician: Fina Tam DS: Diagnosis Discharge Diagnosis (1) Bipolar disorder: Status: Acute DS: Medications Discharge Medications Home Medications: Home Medications Medication Instructions Recorded Confirmed lamotrigine 100 mg PO BID 05/07/20 05/07/20 Previous Rx's Medication Instructions Recorded benztropine 1 mg PO RQ4H PRN #30 tab 05/13/20 cholecalciferol (vitamin D3) 125 mcg PO DAILY #30 tab 05/13/20 haloperidol 5 mg PO BID #60 tab 05/13/20 lamotrigine 100 mg PO BID #60 tab 05/13/20 lithium carbonate 600 mg PO BID #120 cap 05/13/20 olanzapine 1 tab PO BEDTIME #30 tab 05/13/20 oxcarbazepine 300 mg PO BID #60 tab 05/13/20 trazodone 50 mg PO BEDTIME PRN #30 tab 05/13/20 Discharge Plan Discharge Anticipated Discharge Date/Time: 05/13/20 13:00 Patient Disposition: Home, Self-Care Referrals: [facility]iting [facility] [Other] (re start service at D/C ) [facility] [Other] (MESSAGE LEFT TO SCHEDULE) Brian Collins PA-C [Primary Care Provider] - 05/16/20 2:00 pm (IN OFFICE) Shamir Daily MD [Physician] - 06/05/20 11:30 am Discharge Medications: New lamotrigine 100 mg Tablet 100 mg PO BID Qty: 60 RF: 0 trazodone 50 mg Tablet 50 mg PO BEDTIME PRN (Reason: Insomnia) Qty: 30 RF: 0 cholecalciferol (vitamin D3) 25 mcg (1,000 unit) Tablet 125 mcg PO DAILY Qty: 30 RF: 0 Continued lamotrigine 100 mg tablet 100 mg PO BID RF: 0 haloperidol 5 mg Tablet 5 mg PO BID Qty: 60 RF: 0 olanzapine 5 mg tablet 1 tab PO BEDTIME Qty: 30 RF: 0 oxcarbazepine 300 mg Tablet 300 mg PO BID Qty: 60 RF: 0 lithium carbonate 300 mg Capsule 600 mg PO BID Qty: 120 RF: 0 benztropine 1 mg Tablet 1 mg PO RQ4H PRN (Reason: Extrapyramidal Effects) Qty: 30 RF: 0 Discontinued chlorpromazine 100 mg tablet 100 mg PO BEDTIME RF: 0 lorazepam 1 mg Tablet 1 mg PO Q4H PRN (Reason: Anxiety/Restlessness) Qty: 30 RF: 0 Thorazine tablet 100 mg PO PRN (Reason: agitation ) RF: 0 Thorazine tablet 25 PO BID PRN (Reason: Anxiety) RF: 0 Haldol tablet 5 mg PO DAILY PRN (Reason: Agitation) RF: 0 Vitamin D3 5,000 unit capsule 5,000 unit PO DAILY RF: 0 Discharge Orders: Discharge Order (Routine); Ordered 05/13/20 Ordered By: Fina Tam Diet: advance to usual diet Activity on Discharge: As tolerated Patient Instructions: Trazodone (By mouth), Benztropine Mesylate (By mouth), Lamotrigine (By mouth), Olanzapine (By mouth), Oxcarbazepine (By mouth) Stand Alone Forms: Community Support Discharge Date/Time: 05/13/20 13:32 Print Language: Wolof Visit Report Forms: Patient Portal Discharge page Care Plan Goals: Mood Stability Health Concerns: Bipolar Disorder Plan of Treatment: Psychotropic Medication Psychotherapy Mental Status Exam Mental Status Exam Patient Appearance: Well Grooomed and Appropriate Patient Orientation: Person, Place, Time and Situation Level of Consciousness: Awake, Appropriate and Alert Patient Behavior: Appropriate, Talkative, Cooperative and Good Eye Contact Mood Description: Calm and Appropriate Affect Description: Calm and Appropriate Patient Cognition Impaired: No Ability to Follow Directions: Good Speech Pattern: Clear, Appropriate and Spontaneous Speech Memory Description: Intact Hallucinations: None Delusions: Not Present Thought Process: Intact Thought Content: positive for Intact Judgement: Good Data Data Completed and Pending Completed studies during hospitalization [Text1]: 05/07/20 05/07/20 05/07/20 07:57 07:57 07:57 WBC 11.6 H RBC 5.34 Hgb 14.8 Hct 45.8 MCV 85.8 MCH 27.7 MCHC 32.3 RDW 13.0 Plt Count 287 MPV 10.8 Immature Gran % (Auto) 0.4 Neut % (Auto) 61.8 Lymph % (Auto) 21.0 [place] % (Auto) 12.4 H Eos % (Auto) 3.9 Baso % (Auto) 0.5 Lymph # (Auto) 2.4 [place] # (Auto) 1.4 H Eos # (Auto) 0.5 H Baso # (Auto) 0.1 Abs Immat Gran (auto) 0.05 H Absolute Neuts (auto) 7.2 Absolute Nucleated RBC 0.000 Nucleated RBC % (auto) 0.0 Sodium 139 Potassium 4.5 Chloride 102 Carbon Dioxide 28 Anion Gap 14 BUN 17 H Creatinine 0.81 Estim Creat Clear Calc 187.6 Estimated GFR > 60 Fasting Glucose 97 Estimat Average Glucose 103 Hemoglobin A1c % 5.2 Calcium 9.4 Total Bilirubin 0.2 AST 32 ALT 47 H Alkaline Phosphatase 75 Total Protein 7.0 Albumin 4.5 Triglycerides Cholesterol LDL Cholesterol, Calc HDL Cholesterol TSH 2.21 Free T4 0.99 [place] COVID-19 ([facility]) COVID-19 Hepregen 05/07/20 05/07/20 05/10/20 07:57 22:15 07:26 WBC RBC Hgb Hct MCV MCH MCHC RDW Plt Count MPV Immature Gran % (Auto) Neut % (Auto) Lymph % (Auto) [place] % (Auto) Eos % (Auto) Baso % (Auto) Lymph # (Auto) [place] # (Auto) Eos # (Auto) Baso # (Auto) Abs Immat Gran (auto) Absolute Neuts (auto) Absolute Nucleated RBC Nucleated RBC % (auto) Sodium Potassium Chloride Carbon Dioxide Anion Gap BUN Creatinine Estim Creat Clear Calc Estimated GFR Fasting Glucose Estimat Average Glucose Hemoglobin A1c % Calcium Total Bilirubin AST ALT Alkaline Phosphatase Total Protein Albumin Triglycerides Cholesterol LDL Cholesterol, Calc HDL Cholesterol TSH Free T4 [place] 0.33 L 0.32 L COVID-19 ([facility]) Negative COVID-19 Hepregen See Note 05/11/20 05/11/20 08:18 08:18 WBC RBC Hgb Hct MCV MCH MCHC RDW Plt Count MPV Immature Gran % (Auto) Neut % (Auto) Lymph % (Auto) [place] % (Auto) Eos % (Auto) Baso % (Auto) Lymph # (Auto) [place] # (Auto) Eos # (Auto) Baso # (Auto) Abs Immat Gran (auto) Absolute Neuts (auto) Absolute Nucleated RBC Nucleated RBC % (auto) Sodium Potassium Chloride Carbon Dioxide Anion Gap BUN Creatinine Estim Creat Clear Calc Estimated GFR Fasting Glucose Estimat Average Glucose 103 Hemoglobin A1c % 5.2 Calcium Total Bilirubin AST ALT Alkaline Phosphatase Total Protein Albumin Triglycerides 152 Cholesterol 143 LDL Cholesterol, Calc 65 HDL Cholesterol 48 TSH Free T4 [place] COVID-19 ([facility]) COVID-19 Clin Com DS: Summary Time Spent with Patient Time attestation: Total time spent providing and/or coordinating discharge services: 45 minutes Gino reports he is feeling good, clear, stable . States he feels no anxiety or giuliana, he denies feeling overmedicated, states he slept very well over the weekend and believes he needed some time for medicine to build an appropriate level in his system to help him to feel well.
== END 2020-05-13 13:32 | disposition home or self-care (01) | DRG 753 ==
LOC: HO.ED 05-06 23:03 → HO.PM5 05-06 23:05
PROVIDERS: Clinical Nurse Specialist Psychiatric/Mental Health; Nurse Practitioner Family; Physician Assistant; Admitting Provider Psychiatry & Neurology Psychiatry; Emergency Provider Student in an Organized Health Care Education/Training Program; PCP Physician Assistant; Visit Provider Psychiatry & Neurology Psychiatry
DX: F31.10 Bipolar disorder, current episode manic without psychotic features, unspecified (principal); R45.851 Suicidal ideations; Z20.828 Contact with and (suspected) exposure to other viral communicable diseases; Z79.899 Other long term (current) drug therapy
CPT/HCPCS: 36415; 80053; 80061; 80178; 80307; 83036; 84439; 84443; 85025; 87635; 99231; 99232; 99239; 99285; Q0163

== ENCOUNTER 2020-05-18 14:45 | Emergency (ER) | payer OTHER, SELFPAY ==
[2020-05-18 15:10] VITALS: BP 157/95; PULSE 109; RESP 20; TEMP 37.2; O2SAT 98; BMI 31.2
[2020-05-18 15:12] VITALS: BP 157/95; PULSE 109; RESP 20; TEMP 37.2; O2SAT 98
--- NOTE | 2020-05-18 15:35 | ED.PSYCH ---
HPI - Psych General Chief Complaint: Psychiatric Symptoms Stated Complaint: crisis Time Seen by Provider: 05/18/20 15:35 Source: patient Mode of arrival: ambulatory Limitations: no limitations History of Present Illness HPI Narrative: 20-year-old male known to this facility for gastric visits with history of bipolar 1, anxiety and depression who presents ambulatory via triage stating that he wanted checked himself in as the feeling like he is getting manic and wants to prevent this. States that he has been ?ramping up? he just made to ?200,000? on [employer] currency and does not want to spend all. He denies any SI HI. Denies any medical problems at this time. MD complaint: anxiety and other (Feeling like he has ongoing manic) Onset (ago): day(s) Duration: constant History of same: Yes Relieving factors: none Treatments prior to arrival: none Related Data Home Medications Medication Instructions Recorded Confirmed oxcarbazepine 600 mg PO BID 05/18/20 05/18/20 Previous Rx's Medication Instructions Recorded benztropine 1 mg PO RQ4H PRN #30 tab 05/13/20 cholecalciferol (vitamin D3) 125 mcg PO DAILY #30 tab 05/13/20 haloperidol 5 mg PO BID #60 tab 05/13/20 lamotrigine 100 mg PO BID #60 tab 05/13/20 lithium carbonate 600 mg PO BID #120 cap 05/13/20 olanzapine 1 tab PO BEDTIME #30 tab 05/13/20 trazodone 50 mg PO BEDTIME PRN #30 tab 05/13/20 Allergies Allergy/AdvReac Type Severity Reaction Status Date / Time fluoxetine AdvReac Severe giuliana Verified 05/16/20 14:14 chlorpromazine AdvReac Intermediate sleep Verified 05/16/20 14:14 [From Thorazine] walking Review of Systems Review of Systems: Constitutional: No Weight loss, No Fever, No Chills, No Night Sweats, No Fatigue, No Malaise ENT/Mouth: No Hearing loss, No Ear Pain, No Nasal Congestion, No Sinus Pain, No Hoarseness, No sore throat, No Rhinorrhea, No Swallowing Difficulty Eyes: No Eye Pain, No Swelling, No Redness, No Foreign Body, No Discharge, No Vision Changes Cardiovascular: No Chest Pain, No SOB, No Dyspnea on Exertion, No Orthopnea, No Edema, No Palpitations Respiratory: No Cough, No Sputum, No Wheezing, No Smoke Exposure, No Dyspnea Gastrointestinal: No Nausea, No Vomiting, No Diarrhea, No Constipation, No abdominal Pain, No Hematochezia, No Melena Genitourinary: No Dysuria, No Urinary Frequency, No Hematuria, No Urinary Incontinence, No Urgency, No Flank Pain Musculoskeletal: No joint pain, No Myalgias, No Joint Swelling Skin: No Skin Lesions, No rash Neuro: No Weakness, No Numbness, No Paresthesias, No Loss of Consciousness, No Dizziness, No Headache Psych: as noted in HPI Heme/Lymph: No Bruising, No Bleeding,No Lymphadenopathy Endocrine: No Polyuria, No Polydipsia, No Temperature Intolerance Yes all other systems are reviewed and are negative [facility] Past Medical History Medical History Anxiety Bipolar 1 disorder with moderate giuliana Depression No known health problems Social History Social History Household Members: Family Housing: House Alcohol intake: unknown Smoking Status: Former smoker Tobacco Type: Cigarette Second Hand Smoke Exposure: No Use of substances other than those prescribed or required for medical reasons: No Advance Directives: No Advance Directives Information Provided: No service: No Sexual orientation: Straight/Heterosexual Physical Exam Vital Signs: Vital Signs: Last Vital Signs Temp 98.9 F 05/18/20 15:12 Pulse 109 H 05/18/20 15:12 Resp 20 05/18/20 15:12 BP 157/95 H 05/18/20 15:12 Pulse Ox 98 05/18/20 15:12 Body Mass Index 31.2 Reviewed Const: General: cooperative and healthy appearing; No acute distress or intoxicated appearing Nutritional Appearance: average body habitus Orientation/consciousness: patient oriented x3 HENMT: Head: Yes normal to inspection Ears: hearing grossly normal bilaterally Eyes: General: appearance normal, both eyes and all related structures Visual [place]: normal visual [place] by confrontation Neck: Neck: Yes normal visual inspection and No tender Thyroid: Thyroid normal Chest: Chest palpation & inspection: normal inspection of the chest Resp: Effort & Inspection: normal respiratory effort Cardio: Jugular venous distension: no JVD Rhythm: regular rhythm Heart sounds: S1 normal heart sound present and S2 normal heart sound present GI: Inspection: Yes normal to inspection Percussion: Yes normal to percussion Auscultation: normal bowel sounds : General: Yes no CVA tenderness Back/Spine/Pelvis: Back: no CVA tenderness Skin: General skin exam: no rashes or lesions noted Neuro: General: patient oriented x3 Extrem: General: Yes normal to inspection Psych: Other: Rapid speech, slightly manic Course Course Course Narrative: 1530 Well-known to this facility. Will check basic labs and psych consult. Was just discharged from here several days ago. Reevaluation(s) Reevaluation #1: 2100 No change in assessment or plan. Pending psychiatric evaluation Sign-out this time pending disposition after psych evaluation to night team. MDM - Psych Lab Data Result diagrams: 05/18/20 16:07 05/18/20 16:07 Labs: Lab Results 05/18/20 05/18/20 05/18/20 Range/Units 15:45 15:45 16:07 WBC 12.9 H (4.8-10.8) X10*3/uL RBC 5.26 (4.60-5.80) X10*6/uL Hgb 14.8 (14.0-18.0) g/dl Hct 45.2 (42-52) % MCV 85.9 (80-98) fL MCH 28.1 (27.0-33.0) pg MCHC 32.7 (31.0-36.0) g/dl RDW 13.6 (11.0-16.0) % Plt Count 266 (160-400) X10*3/uL MPV 10.9 (9.4-12.4) fL Immature Gran % (Auto) 0.4 (0.0-0.4) % Neut % (Auto) 73.4 H (45-73) % Lymph % (Auto) 15.7 L (20-40) % [place] % (Auto) 8.6 (2-11) % Eos % (Auto) 1.3 (0-4) % Baso % (Auto) 0.6 (0-2) % Lymph # (Auto) 2.0 (1.2-4.9) X10*3/uL [place] # (Auto) 1.1 (0.1-1.2) X10*3/uL Eos # (Auto) 0.2 (0.0-0.4) X10*3/uL Baso # (Auto) 0.1 (0.0-0.2) X10*3/uL Abs Immat Gran (auto) 0.05 H (0.00-0.03) X10*3/uL Absolute Neuts (auto) 9.4 H (2.0-8.3) X10*3/uL Absolute Nucleated RBC 0.000 (0.0-0.012) X10*3/uL Nucleated RBC % (auto) 0.0 (0.0-0.2) /100WBC Sodium (135-145) mmol/L Potassium (3.3-5.1) mmol/l Chloride (96-108) mmol/L Carbon Dioxide (22-29) mmol/L Anion Gap (12-20) BUN (9-16) mg/dL Creatinine (0.5-1.4) mg/dL Estim Creat Clear Calc Estimated GFR Random Glucose (60-115) mg/dL Calcium (8.4-10.2) mg/dL Total Bilirubin (0.0-1.0) mg/dL AST (5-37) U/L ALT (0-40) U/L Alkaline Phosphatase (39-117) U/L Total Protein (6.5-8.0) g/dL Albumin (3.5-5.0) g/dL Urine Color YELLOW Urine Appearance CLEAR Urine pH 7.0 (5.0-8.0) Ur Specific [place] 1.020 (1.005-1.025) Urine Protein NEG (NEG-TRACE) MG/DL Urine Glucose (UA) NEG (NEG) MG/DL Urine Ketones NEG (NEG) MG/DL Urine Blood NEG (NEG) Urine Nitrite NEG (NEG) Ur Leukocyte Esterase NEG (NEG) Urine RBC 0 (0) /HPF Urine WBC 0-2 (0-4) /HPF Ur Squamous Epith Cells NONE /LPF Urine Bacteria NONE /LPF Urine Opiates Screen Not Detected (Not Detect) Ur Barbiturates Screen Not Detected (Not Detect) Ur Phencyclidine Scrn Not Detected (Not Detect) Ur Amphetamines Screen Not Detected (Not Detect) U Benzodiazepines Scrn Not Detected (Not Detect) Urine Cocaine Screen Not Detected (Not Detect) U Marijuana (THC) Screen Not Detected (Not Detect) Ethyl Alcohol mg/dL 05/18/20 05/18/20 Range/Units 16:07 16:07 WBC (4.8-10.8) X10*3/uL RBC (4.60-5.80) X10*6/uL Hgb (14.0-18.0) g/dl Hct (42-52) % MCV (80-98) fL MCH (27.0-33.0) pg MCHC (31.0-36.0) g/dl RDW (11.0-16.0) % Plt Count (160-400) X10*3/uL MPV (9.4-12.4) fL Immature Gran % (Auto) (0.0-0.4) % Neut % (Auto) (45-73) % Lymph % (Auto) (20-40) % [place] % (Auto) (2-11) % Eos % (Auto) (0-4) % Baso % (Auto) (0-2) % Lymph # (Auto) (1.2-4.9) X10*3/uL [place] # (Auto) (0.1-1.2) X10*3/uL Eos # (Auto) (0.0-0.4) X10*3/uL Baso # (Auto) (0.0-0.2) X10*3/uL Abs Immat Gran (auto) (0.00-0.03) X10*3/uL Absolute Neuts (auto) (2.0-8.3) X10*3/uL Absolute Nucleated RBC (0.0-0.012) X10*3/uL Nucleated RBC % (auto) (0.0-0.2) /100WBC Sodium 140 (135-145) mmol/L Potassium 4.1 (3.3-5.1) mmol/l Chloride 106 (96-108) mmol/L Carbon Dioxide 23 (22-29) mmol/L Anion Gap 15 (12-20) BUN 13 (9-16) mg/dL Creatinine 0.90 (0.5-1.4) mg/dL Estim Creat Clear Calc 174.9 Estimated GFR > 60 Random Glucose 106 (60-115) mg/dL Calcium 9.0 (8.4-10.2) mg/dL Total Bilirubin 0.4 (0.0-1.0) mg/dL AST 45 H D (5-37) U/L ALT 56 H (0-40) U/L Alkaline Phosphatase 63 (39-117) U/L Total Protein 7.1 (6.5-8.0) g/dL Albumin 4.6 (3.5-5.0) g/dL Urine Color Urine Appearance Urine pH (5.0-8.0) Ur Specific [place] (1.005-1.025) Urine Protein (NEG-TRACE) MG/DL Urine Glucose (UA) (NEG) MG/DL Urine Ketones (NEG) MG/DL Urine Blood (NEG) Urine Nitrite (NEG) Ur Leukocyte Esterase (NEG) Urine RBC (0) /HPF Urine WBC (0-4) /HPF Ur Squamous Epith Cells /LPF Urine Bacteria /LPF Urine Opiates Screen (Not Detect) Ur Barbiturates Screen (Not Detect) Ur Phencyclidine Scrn (Not Detect) Ur Amphetamines Screen (Not Detect) U Benzodiazepines Scrn (Not Detect) Urine Cocaine Screen (Not Detect) U Marijuana (THC) Screen (Not Detect) Ethyl Alcohol < 10 mg/dL Discharge Plan Discharge Clinical Impression: Bipolar disorder Prescriptions: No Action oxcarbazepine 300 mg tablet 600 mg PO BID RF: 0 lamotrigine 100 mg Tablet 100 mg PO BID Qty: 60 RF: 0 trazodone 50 mg Tablet 50 mg PO BEDTIME PRN (Reason: Insomnia) Qty: 30 RF: 0 cholecalciferol (vitamin D3) 25 mcg (1,000 unit) Tablet 125 mcg PO DAILY Qty: 30 RF: 0 haloperidol 5 mg Tablet 5 mg PO BID Qty: 60 RF: 0 olanzapine 5 mg tablet 1 tab PO BEDTIME Qty: 30 RF: 0 lithium carbonate 300 mg Capsule 600 mg PO BID Qty: 120 RF: 0 benztropine 1 mg Tablet 1 mg PO RQ4H PRN (Reason: Extrapyramidal Effects) Qty: 30 RF: 0
[2020-05-18 15:59] LABS: Glucose Urine UA NEG (NEG); Leukocyte Esterase Urine NEG (NEG); Nitrite Urine NEG (NEG); Urine Blood NEG (NEG); Urine Ketones NEG (NEG); Urine Protein NEG (NEG-TRACE)
[2020-05-18 16:02] LABS: Appearance Urine CLEAR; Color Urine YELLOW
[2020-05-18] MEDS: OLANZapine 5 MG TABLET PO (16:06)
[2020-05-18 16:16] LABS: MANUAL DIFF FLAG NO
[2020-05-18 16:21] LABS: Amphetamine Screen Urine Not Detected (Not Detect); Barbiturates, Urine Not Detected (Not Detect); Benzodiazepines Screen Urine Not Detected (Not Detect); Cannabinoid Screen Urine Not Detected (Not Detect); Cocaine Screen Urine Not Detected (Not Detect); Opiate Screen Urine Not Detected (Not Detect); Phencyclidine Screen Urine Not Detected (Not Detect)
[2020-05-18 16:27] LABS: RBC Urine 0 /HPF (0); WBC Urine 0-2 /HPF (0-4)
[2020-05-18 16:33] LABS: Basophils Absolute Auto 0.1 X10*3/uL (0.0-0.2); Basophils Percent Auto 0.6 % (0-2); Eosinophils Absolute Auto 0.2 X10*3/uL (0.0-0.4); Eosinophils Percent Auto 1.3 % (0-4); Hematocrit 45.2 % (42-52); Hemoglobin 14.8 g/dl (14.0-18.0); Imm Gran Abs Auto 0.05 X10*3/uL (0.00-0.03); Imm Gran Pct Auto 0.4 % (0.0-0.4); Lymphocytes Percent Auto 15.7 % (20-40); Mean Corpuscular HGB Conc 32.7 g/dl (31.0-36.0); Mean Corpuscular Hemoglobin 28.1 pg (27.0-33.0); Mean Corpuscular Volume 85.9 fL (80-98); Mean Platelet Volume 10.9 fL (9.4-12.4); Monocytes Absolute Auto 1.1 X10*3/uL (0.1-1.2); Monocytes Percent Auto 8.6 % (2-11); Neutrophils Absolute Auto 9.4 X10*3/uL (2.0-8.3); Neutrophils Percent Auto 73.4 % (45-73); Platelet Count 266 X10*3/uL (160-400); Red Blood Count 5.26 X10*6/uL (4.60-5.80); Red Cell Distribution Width 13.6 % (11.0-16.0); White Blood Count 12.9 X10*3/uL (4.8-10.8)
[2020-05-18] MEDS: LORazepam 1 MG TABLET 2 MG PO (16:37)
[2020-05-18 16:39] LABS: Ethanol < 10 mg/dL
[2020-05-18 16:42] LABS: Alanine Aminotransferase 56 U/L (0-40); Albumin Level 4.6 g/dL (3.5-5.0); Alkaline Phosphatase 63 U/L (39-117); Anion Gap 15 (12-20); Aspartate Amino Transferase 45 U/L (5-37); Bilirubin Total 0.4 mg/dL (0.0-1.0); Blood Urea Nitrogen 13 mg/dL (9-16); Carbon Dioxide 23 mmol/L (22-29); Chloride 106 mmol/L (96-108); Creatinine Clr Calc Pharmacy 174.9; Estimated Glomerular Filt Rate > 60; Glucose Random 106 mg/dL (60-115); Potassium 4.1 mmol/l (3.3-5.1); Sodium 140 mmol/L (135-145); Total Protein 7.1 g/dL (6.5-8.0)
--- NOTE | 2020-05-18 18:41 | PC.NURSE ---
Pt walking around unit, interacting with staff and other patients, calm and cooperative. Pt waiting to speak with BHN.
--- NOTE | 2020-05-18 18:46 | MHC.CARE ---
CARE team called [facility] to confirm referral was received. [facility] reports patient is on their list to be evaluated but that a clinician has not yet been assigned.
--- NOTE | 2020-05-18 19:09 | PC.NURSE ---
Report received. PT is laying in bed. Calm and cooperative. Waiting to be seen by N.
--- NOTE | 2020-05-18 20:55 | PC.NURSE ---
BHN at bedside.
== END 2020-05-18 21:57 | disposition home or self-care (01) ==
PROVIDERS: Nurse Practitioner Primary Care; Emergency Provider Emergency Medicine
DX: F31.9 Bipolar disorder, unspecified (principal); Z79.899 Other long term (current) drug therapy
CPT/HCPCS: 36415; 80053; 80307; 80320; 81001; 85025; 99285

== ENCOUNTER 2020-05-19 16:17 | Inpatient (IN) | payer OTHER, SELFPAY ==
[2020-05-19 17:42] VITALS: BP 153/81; PULSE 114; RESP 16; TEMP 36.7; O2SAT 98; BMI 32.5
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
--- NOTE | 2020-05-19 18:37 | ED_ITS ---
HPI - Psych General Chief Complaint: Psychiatric Symptoms Stated Complaint: crisis Time Seen by Provider: 05/19/20 18:15 Source: patient Mode of arrival: ambulatory Limitations: no limitations History of Present Illness HPI Narrative: Patient presents to the for psych evaluation. Patient admitted himself to be manic. Patient states he sees people with [employer] that said hi to him. 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 Patient was seen and cleared by the [facility] yesterday. Patient self admits to being compliant with meds. Patient denies any suicidal homicidal ideation. Related Data Home Medications Medication Instructions Recorded Confirmed oxcarbazepine 600 mg PO BID 05/18/20 05/19/20 Previous Rx's Medication Instructions Recorded benztropine 1 mg PO RQ4H PRN #30 tab 05/13/20 cholecalciferol (vitamin D3) 125 mcg PO DAILY #30 tab 05/13/20 haloperidol 5 mg PO BID #60 tab 05/13/20 lamotrigine 100 mg PO BID #60 tab 05/13/20 lithium carbonate 600 mg PO BID #120 cap 05/13/20 olanzapine 1 tab PO BEDTIME #30 tab 05/13/20 trazodone 50 mg PO BEDTIME PRN #30 tab 05/13/20 Allergies Allergy/AdvReac Type Severity Reaction Status Date / Time fluoxetine AdvReac Severe giuliana Verified 05/16/20 14:14 chlorpromazine AdvReac Intermediate sleep Verified 05/16/20 14:14 [From Thorazine] walking Review of Systems Review of Systems: Yes all other systems are reviewed and are negative Constitutional: Constitutional: Reports as per HPI and Reports no additional constitutional complaints Eyes: Eyes: Reports as per HPI and Reports no additional eye complaints ENT: Reports system reviewed and no additional complaints, except as documented and Reports as per HPI Cardiovascular: Cardiovascular: Reports as per HPI and Reports no additional cardiovascular complaints Respiratory: Respiratory: Reports as per HPI and Reports no additional respiratory complaints Gastrointestinal: Gastrointestinal: Reports as per HPI and Reports no additional gastrointestinal complaints Genitourinary: Genitourinary: Reports no additional male genitourinary complaints and Reports as per HPI Musculoskeletal: Musculoskeletal: Reports no additional musculoskeletal complaints and Reports as per HPI Neurologic: Reports system reviewed and no additional complaints, except as documented and Reports as per HPI Psychiatric: Psychiatric: Reports no additional psychiatric complaints and Reports as per HPI Comments: Manic PMFSH Past Medical History Medical History Anxiety Bipolar 1 disorder with moderate giuliana Depression No known health problems Social History Social History Household Members: Family Housing: House Alcohol intake: unknown Smoking Status: Former smoker Tobacco Type: Cigarette Smoked in Last 30 Days: No Second Hand Smoke Exposure: No Use of substances other than those prescribed or required for medical reasons: No Advance Directives: No Advance Directives Information Provided: Yes service: No Sexual orientation: Straight/Heterosexual Physical Exam Vital Signs: Vital Signs: Last Vital Signs Temp 98.0 F 05/19/20 17:42 Pulse 114 H 05/19/20 17:42 Resp 16 05/20/20 00:32 BP 153/81 H 05/19/20 17:42 Pulse Ox 98 05/19/20 17:42 Body Mass Index 32.5 Const: General: cooperative, healthy appearing, comfortable, no acute distress, well developed and alert Orientation/consciousness: patient oriented x3 HENMT: Head: Yes normal to inspection and Yes No palpable skull fracture present Eyes: General: appearance normal, both eyes and all related structures Neck: Neck: Yes normal visual inspection and Yes full ROM Chest: Chest palpation & inspection: normal inspection of the chest and normal palpation of entire chest wall Resp: Effort & Inspection: normal respiratory effort and able to speak in complete sentences Cardio: Jugular venous distension: no JVD Heart sounds: S1 normal heart sound present and S2 normal heart sound present GI: Inspection: Yes normal to inspection and No abdominal wall ecchymosis Palpation (GI): Soft to palpation, not firm, nontender, no guarding and not rigid : General: No CVA tenderness and Yes no CVA tenderness Back/Spine/Pelvis: Back: no CVA tenderness, No CVA tenderness and No back tenderness Skin: General skin exam: no rashes or lesions noted Neuro: General: patient oriented x3, gait normal and CN's II-XI intact bilaterally Cranial nerves: Yes CN's II-XII intact bilaterally Extrem: General: Yes normal to inspection and Yes full ROM Psych: Other: Patient is manic. Patient has flat affect. Patient is not suicidal homicidal. Patient has insight and knowing that he is manic. Course Course Course Narrative: Patient really had basic labs yesterday that was normal. [place] will be drawn today. Consulted the header will evaluate patient to see if he needs behavior Health crisis evaluation. Patient request something the common down. Zyprexa and Ativan ordered. Reevaluation(s) Reevaluation #1: Patient becoming little bit aggressive and he himself admits that he wants a shot to come down. Care team consulted headers spoke with [facility] psych floor and he states patient usually received Thorazine to help with agitation. Thorazine 25 IM ordered. Time: 19:26 Reevaluation #2: Patient became or destructive and stood on the counter to end to break stuff. Patient caused the abrasion on his right hand. Patient now given Benadryl and Ativan. Patient never placed in physical restraints. Physical restraint order placed in error. Patient was Section 12. Patient has a bed search Time: 22:10 Reevaluation #3: Patient is a bed search Time: 02:22 MDM - Psych MDM Narrative Medical decision making narrative: Bipolar Restraints Face to Face Assessment: Face to Face Assessment: Current Situation: After assessment of the patient, a review of the pertinent medical record and a discussion with nursing staff, I feel the patient requires a restrain intervention. Reaction To: [] Medical Condition: [] Behavioral State: [] Continued Need: [] Lab Data Labs: Lab Results 05/19/20 Range/Units 18:32 [place] 0.27 L (0.60-1.20) mmol/L Discharge Plan Discharge Clinical Impression: Bipolar disorder Prescriptions: No Action oxcarbazepine 300 mg tablet 600 mg PO BID RF: 0 lamotrigine 100 mg Tablet 100 mg PO BID Qty: 60 RF: 0 trazodone 50 mg Tablet 50 mg PO BEDTIME PRN (Reason: Insomnia) Qty: 30 RF: 0 cholecalciferol (vitamin D3) 25 mcg (1,000 unit) Tablet 125 mcg PO DAILY Qty: 30 RF: 0 haloperidol 5 mg Tablet 5 mg PO BID Qty: 60 RF: 0 olanzapine 5 mg tablet 1 tab PO BEDTIME Qty: 30 RF: 0 lithium carbonate 300 mg Capsule 600 mg PO BID Qty: 120 RF: 0 benztropine 1 mg Tablet 1 mg PO RQ4H PRN (Reason: Extrapyramidal Effects) Qty: 30 RF: 0
--- NOTE | 2020-05-19 18:37 | MHC.CARE ---
[facility] faxed and called, per Marion (engine assembly supervisor) a clinician will not be available until after 11pm. CARE team will evaluate pt after lithium level results come back.
[2020-05-19] MEDS: OLANZapine 5 MG TABLET PO (18:54)
[2020-05-19] MEDS: LORazepam 1 MG TABLET 2 MG PO (18:54)
--- NOTE | 2020-05-19 18:57 | PC.NURSE ---
Pt changed over to hosptital attire. He is pending a BHN eval, which will be done later around 11pm, per Lexii who reached out to them. Pt medicated per emar.
[2020-05-19 19:19] LABS: Lithium 0.27 mmol/L (0.60-1.20)
--- NOTE | 2020-05-19 19:39 | PC.NURSE ---
Pt transferred over from the main ED. Given thorazine 25 mg IM, effect pending
--- NOTE | 2020-05-19 20:10 | PC.NURSE ---
CARE team meeting with patient at the bedside
[2020-05-19] MEDS: Haloperidol Lactate 5 MG/ML VIAL IM (20:49)
--- NOTE | 2020-05-19 20:57 | MHC.CARE ---
CARE team evaluated pt with plan for inpatient psychiatric admission due to pt's presentation with acute giuliana. Pt will be placed on a Sect 12 and remain in ED until bed placement is secured.
[2020-05-19] MEDS: diphenhydrAMINE HCL 50 MG/ML VIAL IVPUSH (21:25)
[2020-05-19] MEDS: LORazepam 2 MG/ML VIAL IM (21:25)
[2020-05-19 21:34] VITALS: RESP 18
--- NOTE | 2020-05-19 21:35 | PC.NURSE ---
Pt agitated, punching doors, standing on the counters at the nurses station, yelling at staff, I WANT MY PIZZA . Security called, spoke to pt about the pizza, able to settle down. Accepting of ativan and benadryl IM. Pt currently in bed with lights off and door closed, no signs of distress, respirations unlabored.
--- NOTE | 2020-05-19 22:55 | PC.NURSE ---
Pt asleep at current, no signs of distress, respirations even and unlabored
--- NOTE | 2020-05-19 23:57 | PC.NURSE ---
Pt awake, slurring words, difficult to understand, keeps getting out of bed, unsteady on feet, difficult to redirect back to bed. Currently watching TV in common area.
[2020-05-20] VITALS (8 sets, daily range): BP systolic 132; BP diastolic 70–82; PULSE 93–117; RESP 16–18; TEMP 36.7–47.2; O2SAT 98–100
--- NOTE | 2020-05-20 00:43 | PC.NURSE ---
Pt demanding pizza, explained to pt that told him that he would be unable to have his pizza due to being in the pod, becoming increasingly agitated. called, currently with patient.
--- NOTE | 2020-05-20 02:09 | PC.NURSE ---
Pt asleep at current, no signs of distress, respirations even and unlabored.
[2020-05-20 05:27] LABS: COVID-19 Test Negative (Negative)
--- NOTE | 2020-05-20 07:28 | PC.NURSE ---
Report received from YUVAL Navas. Pt awake, shouting at times, now showering.
[2020-05-20] MEDS: lamoTRIgine 100 MG TABLET PO ×2 (08:23→20:35)
[2020-05-20] MEDS: HaloperidoL 5 MG TABLET PO ×3 (08:23→19:53)
[2020-05-20] MEDS: Lithium Carbonate 300 MG CAPSULE 600 MG PO ×2 (08:23→19:53)
[2020-05-20] MEDS: OXcarbazepine 300 MG TABLET 600 MG PO ×2 (08:23→19:53)
[2020-05-20] MEDS: Benztropine Mesylate 1 MG TABLET PO (08:28)
--- NOTE | 2020-05-20 09:28 | PC.NURSE ---
Pt took am medications, appears slightly less agitated, now in common area listening to headphones. Pt requiring multiple interventions re: intrusiveness and attempting to defend staff.
[2020-05-20] MEDS: OLANZapine 10 MG VIAL IM (10:19)
[2020-05-20] MEDS: LORazepam 2 MG/ML VIAL IM (10:19)
--- NOTE | 2020-05-20 10:20 | PC.NURSE ---
Pt escalating, attempting to leave, throwing items at staff. Security called, pt demanding additional IM medications. Fátima Johnson notified. Pt medicated as ordered. Security w/ pt at this time. Pocket Closer in, as pt requested medication, this is not considered a chemical restraint.
--- NOTE | 2020-05-20 10:52 | PC.NURSE ---
Pt currently resting in room, resp unlabored.
--- NOTE | 2020-05-20 10:56 | PC.NURSE ---
Pt resting, resp unlabored. Pt on 1:1 w/ security.
--- NOTE | 2020-05-20 11:43 | PC.NURSE ---
Pt awake briefly, drowsy, assisted to bathroom, currently resting in room.
--- NOTE | 2020-05-20 12:36 | PC.NURSE ---
Report given to YUVAL Herzog on M5.
--- NOTE | 2020-05-20 12:49 | PC.NURSE ---
Pt continues to be drowsy, easily awakened.
[2020-05-20] MEDS: Cholecalciferol (Vitamin D3) 25 MCG TABLET 125 MCG PO (13:09)
--- NOTE | 2020-05-20 14:16 | PC.NURSE ---
Care team in to transfer pt to M5. Pt drowsy, but easily awakened. Able to ambulate. resp unlabored. Pt transferred, no concerns reported.
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
[2020-05-20] MEDS: OLANZapine 5 MG TABLET PO (19:25)
[2020-05-20] MEDS: OLANZapine 5 MG TABLET 10 MG PO (19:53)
[2020-05-21] MEDS: LORazepam 1 MG TABLET PO ×2 (01:42→16:58)
[2020-05-21 04:55] VITALS: BP 126/67; PULSE 91; RESP 18; TEMP 36.2; O2SAT 98
[2020-05-21] MEDS: Acetaminophen 325 MG TABLET 650 MG PO ×2 (07:14→17:34)
[2020-05-21] MEDS: Lithium Carbonate 300 MG CAPSULE 600 MG PO ×2 (08:16→19:24)
[2020-05-21] MEDS: HaloperidoL 5 MG TABLET PO ×3 (08:17→19:25)
[2020-05-21] MEDS: OXcarbazepine 300 MG TABLET 600 MG PO ×2 (08:17→19:25)
[2020-05-21] MEDS: Cholecalciferol (Vitamin D3) 25 MCG TABLET 125 MCG PO (08:17)
[2020-05-21] MEDS: lamoTRIgine 100 MG TABLET PO ×2 (08:18→19:25)
[2020-05-21] MEDS: OLANZapine 10 MG VIAL IM ×2 (10:12→19:36)
[2020-05-21] MEDS: LORazepam 2 MG/ML VIAL IM (10:16)
[2020-05-21] MEDS: Benztropine Mesylate 1 MG TABLET PO (16:58)
[2020-05-21] MEDS: OLANZapine 5 MG TABLET PO (16:58)
--- NOTE | 2020-05-21 18:09 | HO.PSYADMNOT ---
HPI Chief Complaint: giuliana Sources of Information: patient interviewed and chart reviewed HPI Narrative: 20 yo male, recent M5 discharge, second ER presentation with SI, HI and increased in manic behavior, agitation, psychosis. Team reports this is his fifth eval within the month. Pt was discharged earlier this week, returns with intensified sx with HI toward drug dealers and child traffickers along with grandiose and delusional content. Pt asked for prn IM Olanzapine this a.m. due to severe delusional agitation. [place] levels are reportedly low on admission. Past Psychiatric History: 3 admissions to Required iv ketamine during one stay due to his giuliana. Shamir Daily is his outpatient psychiatrist Rosendo Bains is his therapist He has been on multiple medications in the past including depakote, abilify, latuda, and Li Medical Evaluation Reviewed: Yes [facility] Medical History Anxiety Bipolar 1 disorder with moderate giuliana Depression No known health problems Family History: Family history is significant for bipolar disorder and alcohol use disorder Social History: Lives with his mother Trauma History: Denies Diagnostics Vital Signs (24Hr): Vital Signs - 24 hr 05/21/20 04:55 Temperature 97.2 F Pulse Rate 91 Respiratory Rate 18 Blood Pressure 126/67 Pulse Oximetry 98 Body Mass Index 32.5 Labs Labs: Laboratory Results - last 48 hr 05/19/20 05/20/20 18:32 05:06 [place] 0.27 L COVID-19 (KELVIN) Negative COVID-19 Clin Com See Note Meds/Allergies Meds Home Medications Acetaminophen (Acetaminophen 325 Mg Tablet) 650 mg PO Q6H PRN PRN Reason: Headache/Pain Mild Scale (1-3) Last Admin: 05/21/20 17:34 Dose: 650 mg Documented by: Al Hydroxide/Mg Hydroxide (Magnesium Hydrox/Alum Hydrox 30 Ml Oral.Susp) 30 ml PO Q6H PRN PRN Reason: Heartburn/Nausea Benztropine Mesylate (Benztropine Mesylate 1 Mg Tablet) 1 mg PO RQ4H PRN PRN Reason: Extrapyramidal Effects Last Admin: 05/21/20 16:58 Dose: 1 mg Documented by: Haloperidol (Haloperidol 5 Mg Tablet) 5 mg PO BID YANI Last Admin: 05/21/20 08:17 Dose: 5 mg Documented by: Haloperidol (Haloperidol 5 Mg Tablet) 5 mg PO Q6H PRN PRN Reason: psychosis , agitation Last Admin: 05/21/20 16:58 Dose: 5 mg Documented by: Hydroxyzine HCl (Hydroxyzine Hcl 25 Mg Tablet) 25 mg PO BEDTIME PRN PRN Reason: Anxiety Lamotrigine (Lamotrigine 100 Mg Tablet) 100 mg PO BID ON LICENSE OF [facility] Last Admin: 05/21/20 08:18 Dose: 100 mg Documented by: [place] Carbonate ([place] Carbonate 300 Mg Capsule) 600 mg PO BID ON LICENSE OF [facility] Last Admin: 05/21/20 08:16 Dose: 600 mg Documented by: Lorazepam (Lorazepam 1 Mg Tablet) 1 mg PO Q4H PRN PRN Reason: agitation/anxiety/insomnia Last Admin: 05/21/20 16:58 Dose: 1 mg Documented by: Magnesium Hydroxide (Milk Of Magnesia 30 Ml Oral.Susp) 30 ml PO DAILY PRN PRN Reason: Constipation Olanzapine (Olanzapine 5 Mg Tablet) 5 mg PO Q4H PRN PRN Reason: psychosis , agitation Last Admin: 05/21/20 16:58 Dose: 5 mg Documented by: Oxcarbazepine (Oxcarbazepine 300 Mg Tablet) 600 mg PO BID ON LICENSE OF [facility] Last Admin: 05/21/20 08:17 Dose: 600 mg Documented by: Vitamin D (Cholecalciferol (Vitamin D3) 25 Mcg Tablet) 125 mcg PO DAILY ON LICENSE OF [facility] Last Admin: 05/21/20 08:17 Dose: 125 mcg Documented by: Allergies Allergies Allergy/AdvReac Type Severity Reaction Status Date / Time fluoxetine AdvReac Severe giuliana Verified 05/16/20 14:14 chlorpromazine AdvReac Intermediate sleep Verified 05/16/20 14:14 [From Thorazine] walking Mental Status Exam Mental Status Exam Patient Appearance: Bizarre (clothing on his head, screaming about needing jewelry) Patient Orientation: Person and Place Level of Consciousness: Awake, Restless and Inappropriate Patient Behavior: Hyperactive, Suspicious, Aggressive, Restless, Belligerent, Anxious, Fatigued, Good Eye Contact, Impulsive and Pacing Mood Description: Suspicious, Depressed, Hostile, Anxious, Labile, Angry, Nervous, Apprehensive and Expansive Affect Description: Labile Patient Cognition Impaired: Yes Ability to Follow Directions: Fair Speech Pattern: Perseverating, Spontaneous Speech, Rapid, Excessive, Loud, Pressured and Includes Profanity Memory Description: Remote Impaired, Immediate Impaired and Episodic Impaired Hallucinations: None ( Only sometimes, but not now. ) Delusions: Being Controlled, Paranoid Ideation, Grandiose and Present Thought Process: Racing, Illogical, Distracted, Rumination and Confusion Thought Content: positive for Flight of Ideas, positive for Racing, positive for Preoccupation, positive for Disorganized, positive for Suicidal Ideation (delusional content) and positive for Homicidal Ideation (delusional content) Depressive Symptoms: Increased Anxiety, Increased Irritability, Hopelessness, Thoughts of /Suicide and Difficulty Concentrating Abnormal Motor Activity Signs and Symptoms: Aggression, Agitation, Hyperactivity and Restlessness Judgement: Poor Assessment & Plan Assessment & Plan (1) Bipolar disorder: Status: Acute Code(s): F31.9 - Bipolar disorder, unspecified Assessment and Plan: -Li level 0.27. Will continue dosing as ordered, level 05/22/20...Question of compliance issue vs metabolic issue. -Olanzapine 10 mg IM, Lorazepam 2 mg given prn a.m. to manage giuliana -Olanzapine 10 mg IM given p.m. to manage giuliana as well. -Team reports pt awake, alert, calm, listening to music at 1825. Patient educated on: therapeutic strategies Informed Consent: further education needed Reason for continued inpatient stay Substantial Risk for: harm to self, harm to others, inability to function and rapid decompensation
--- NOTE | 2020-05-21 18:50 | PC.NURSE ---
at 1630 patient became restless and began to physically and verbally act out. ''call security, I want to fuck someone up'' ''fuck this place'' ''I want my jewelry back now'' posturing. loud threatening voice. began walking down the hallway and began to pull his clothing off until he was down to his cydney pants which he was wearing as underwear. dropping clothing off in hallway where ever he took items off. attempted to jump over nurses station counter, landed on top then went back on his feet. slamming closed fists on counter top. ''i want my jewelry'' reminded that his expensive jewelry was in the hospital safe. when security came to unit, initially was threatening and posturing but did respond well as all staff kept hands off. patient accepted po medications. patient displayed tension reduction later and apologized for his behavior. reports he'd like to talk with team about having ''one ring'' he had been reminded in the moment that he has a history of punching tong and responded ''I won't''
--- NOTE | 2020-05-21 22:47 | PC.NURSE ---
patient experienced another physical/verbal outburst when he did not receive items from home he had requested from his family. pt began stripping again, yelling, posturing. jumping up to hit high door way frames and ceiling tiles. security called at assist. this restlessness also included bursts of crying. reporting that ''my family trigger me'' ''they don't love me and they don't bring to me the things i ask for'' ''they tell me what to and not to do'' ''there is a lot of drinking going on that they have to be responsible for'' requested ''please give me a shot'' ''i can't handle how i feel, my emotions are all over the place'' im given as requested.
[2020-05-22] MEDS: LORazepam 1 MG TABLET PO ×2 (05:42→16:59)
[2020-05-22 06:00] VITALS: BP 137/60; PULSE 90; RESP 18; TEMP 37.1; O2SAT 99
[2020-05-22] MEDS: OLANZapine 5 MG TABLET PO ×2 (06:31→16:59)
[2020-05-22] MEDS: HaloperidoL 5 MG TABLET PO ×3 (06:32→19:53)
[2020-05-22] MEDS: Benztropine Mesylate 1 MG TABLET PO (06:34)
[2020-05-22] MEDS: Cholecalciferol (Vitamin D3) 25 MCG TABLET 125 MCG PO (07:46)
[2020-05-22] MEDS: lamoTRIgine 100 MG TABLET PO ×2 (07:47→19:54)
[2020-05-22] MEDS: Lithium Carbonate 300 MG CAPSULE 600 MG PO ×2 (07:47→19:53)
[2020-05-22] MEDS: OXcarbazepine 300 MG TABLET 600 MG PO ×2 (07:48→19:53)
[2020-05-22] MEDS: OLANZapine 10 MG VIAL IM (09:54)
--- NOTE | 2020-05-22 17:30 | P.PNPSI_ITS ---
Subjective Subjective Date of Service: 05/22/20 Reason For Visit: giuliana Interim History: Would you be my sitter? Labile mood and behaviors-alternates between throwing items, kicking, yelling, running, banging on windows to sleeping and awake and calm. Requested prn Olanzapine which was provided. Labile agitation with outbursts. Medication Compliance: Yes Side effects from medications: No Attending Groups: No Review of Systems Review of Systems Yes Unobtainable due to mental status Reports system reviewed and no additional complaints, except as documented, Reports as per HPI, Reports behavioral changes, Reports confusion and Reports memory loss Psychiatric: Reports anxiety, Reports behavioral changes, Reports confusion, Reports difficulty concentrating, Reports auditory hallucinations, Reports irritability, Reports anhedonia, Reports memory loss, Reports mood swings and Reports paranoia Mental Status Exam Mental Status Exam Patient Appearance: Disheveled and Inappropriate (manic) Patient Orientation: Person and Place Level of Consciousness: Awake, Sedated, Disoriented, Restless, Alert and Combative Patient Behavior: Hyperactive, Cooperative, Suspicious, Asleep, Aggressive, Restless, Belligerent, Wandering, Swearing, Anxious, Combative, Distractible, Confused, Uncooperative and Impulsive Mood Description: Labile Affect Description: Labile Patient Cognition Impaired: Yes Ability to Follow Directions: Fair Speech Pattern: Perseverating, Spontaneous Speech, Rambling, Rapid, Excessive, Loud, Pressured and Includes Profanity Memory Description: Remote Impaired, Immediate Impaired, Episodic Impaired, Recent Impaired and Working Impaired Hallucinations: Auditory (it appears he is responding at times.) Delusions: Paranoid Ideation, Grandiose and Present Perceptual Disturbances: Hallucinations Thought Process: Racing, Illogical, Distracted, Rumination and Confusion Thought Content: positive for Flight of Ideas, positive for Racing, positive for Circumstantial, positive for Perseveration, positive for Poverty of Content, positive for Preoccupation, positive for Loose Associations, positive for Thought Blocking, positive for Tangential and positive for Disorganized Depressive Symptoms: Diff. Making Decisions, Increased Irritability, Loss of I nt. in Activity, Hopelessness and Unhappiness Abnormal Motor Activity Signs and Symptoms: Aggression, Agitation, Hyperactivity and Restlessness Judgement: Poor Diagnostics Vital Signs (24Hr): Vital Signs - 24 hr 05/22/20 06:00 Temperature 98.7 F Pulse Rate 90 Respiratory Rate 18 Blood Pressure 137/60 Pulse Oximetry 99 Body Mass Index 32.5 Medications Medications Current Medications Generic Name Dose Route Start Last Admin Trade Name Freq PRN Reason Stop Dose Admin Acetaminophen 650 mg 05/20/20 17:31 05/21/20 17:34 Acetaminophen 325 Mg Tablet PO 650 mg Q6H PRN Administration Headache/Pain Mild Scale (1-3) Al Hydroxide/Mg Hydroxide 30 ml 05/20/20 17:31 Magnesium Hydrox/Alum Hydrox 30 Ml Oral.Susp PO Q6H PRN Heartburn/Nausea Benztropine Mesylate 1 mg 05/20/20 08:08 05/22/20 06:34 Benztropine Mesylate 1 Mg Tablet PO 1 mg RQ4H PRN Administration Extrapyramidal Effects Haloperidol 5 mg 05/20/20 09:00 05/22/20 07:47 Haloperidol 5 Mg Tablet PO 5 mg BID YANI Administration Haloperidol 5 mg 05/20/20 19:15 05/22/20 06:32 Haloperidol 5 Mg Tablet PO 5 mg Q6H PRN Administration psychosis , agitation Hydroxyzine HCl 25 mg 05/20/20 17:31 Hydroxyzine Hcl 25 Mg Tablet PO BEDTIME PRN Anxiety Lamotrigine 100 mg 05/20/20 09:00 05/22/20 07:47 Lamotrigine 100 Mg Tablet PO 100 mg BID YANI Administration [place] Carbonate 600 mg 05/20/20 09:00 05/22/20 07:47 [place] Carbonate 300 Mg Capsule PO 600 mg BID YANI Administration Lorazepam 1 mg 05/20/20 19:19 05/22/20 16:59 Lorazepam 1 Mg Tablet PO 1 mg Q4H PRN Administration agitation/anxiety/insomnia Magnesium Hydroxide 30 ml 05/20/20 17:31 Milk Of Magnesia 30 Ml Oral.Susp PO DAILY PRN Constipation Olanzapine 5 mg 05/20/20 19:17 05/22/20 16:59 Olanzapine 5 Mg Tablet PO 5 mg Q4H PRN Administration psychosis , agitation Olanzapine 10 mg 05/22/20 09:41 05/22/20 09:54 Olanzapine 10 Mg Vial IM 10 mg BID PRN Administration Psychosis Oxcarbazepine 600 mg 05/20/20 09:00 05/22/20 07:48 Oxcarbazepine 300 Mg Tablet PO 600 mg BID YANI Administration Vitamin D 125 mcg 05/20/20 09:00 05/22/20 07:46 Cholecalciferol (Vitamin D3) 25 Mcg Tablet PO 125 mcg DAILY YANI Administration Allergies Allergies Allergy/AdvReac Type Severity Reaction Status Date / Time fluoxetine AdvReac Severe giuliana Verified 05/16/20 14:14 chlorpromazine AdvReac Intermediate sleep Verified 05/16/20 14:14 [From Thorazine] walking Assessment & Plan Greater than 50% of the session was spent on counseling and/or coordination of care Patient educated on: therapeutic strategies Informed Consent: does not understand Reason for contiued inpatient stay Substantial Risk for: harm to self, harm to others, inability to function, rapid decompensation and med/psych decompensation
[2020-05-22 18:00] VITALS: BP 151/76; PULSE 113; TEMP 36.9
[2020-05-23] MEDS: OLANZapine 5 MG TABLET PO ×3 (05:13→17:26)
[2020-05-23 06:00] VITALS: BP 165/73; PULSE 114; TEMP 36.6; O2SAT 95
[2020-05-23] MEDS: HaloperidoL 5 MG TABLET PO ×5 (07:22→23:51)
[2020-05-23] MEDS: LORazepam 1 MG TABLET PO ×3 (07:22→23:51)
[2020-05-23] MEDS: Lithium Carbonate 300 MG CAPSULE 600 MG PO (08:27)
[2020-05-23] MEDS: Cholecalciferol (Vitamin D3) 25 MCG TABLET 125 MCG PO (08:27)
[2020-05-23] MEDS: OXcarbazepine 300 MG TABLET 600 MG PO ×2 (08:27→21:31)
[2020-05-23] MEDS: lamoTRIgine 100 MG TABLET PO ×2 (08:28→21:31)
[2020-05-23 09:42] LABS: Thyroid Stimulating Hormone 1.47 uIU/mL (0.32-4.0)
[2020-05-23 09:54] LABS: Vitamin B12 261 pg/mL (200-900)
[2020-05-23] MEDS: Benztropine Mesylate 1 MG TABLET PO (10:21)
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
[2020-05-23 18:00] VITALS: BP 134/68; PULSE 115; TEMP 36.8
[2020-05-23] MEDS: OLANZapine 10 MG VIAL IM (19:35)
[2020-05-23] MEDS: Lithium Carbonate 300 MG TABLET 900 MG PO (21:31)
[2020-05-23] MEDS: hydrOXYzine HCL 25 MG TABLET PO (23:51)
[2020-05-24 06:00] VITALS: BP 140/76; PULSE 87; RESP 18; TEMP 36.6; O2SAT 99
[2020-05-24] MEDS: HaloperidoL 5 MG TABLET PO ×4 (06:30→20:30)
[2020-05-24] MEDS: LORazepam 1 MG TABLET PO ×2 (06:30→15:34)
[2020-05-24] MEDS: Cholecalciferol (Vitamin D3) 25 MCG TABLET 125 MCG PO (09:21)
[2020-05-24] MEDS: Lithium Carbonate 300 MG CAPSULE 600 MG PO (09:23)
[2020-05-24] MEDS: OXcarbazepine 300 MG TABLET 600 MG PO (09:23)
[2020-05-24] MEDS: lamoTRIgine 100 MG TABLET PO ×2 (09:51→20:30)
[2020-05-24] MEDS: OLANZapine 10 MG VIAL IM ×2 (10:26→19:26)
[2020-05-24] MEDS: LORazepam 2 MG/ML VIAL IM (10:26)
[2020-05-24] MEDS: diphenhydrAMINE HCL 50 MG/ML VIAL IM (10:26)
--- NOTE | 2020-05-24 10:44 | PC.NURSE ---
SUBMITTED 3 DAY NOTICE WHICH IS UP ON 05/29/19. CHARGE NURSE, POONAM HOOD AND DR GASPAR INFORMED.
--- NOTE | 2020-05-24 11:43 | P.PNPSI_ITS ---
Subjective Subjective Date of Service: 05/24/20 Reason For Visit: giuliana Subjective Notes: 3 Day Interim History: Pt acutely agitated this am , yelling for security angry that nurses made him wait for security agreed to take IM medications- after wards put in 3 day and asked me to discharge him- told him after agitation today with yelling /pacing and hitting tong it was not likely he did walk away and went to room became agitated later in pm and asked for IM olanzapine 10mg there was some question from nursing if possibly ativan may be disinhibiting to pt Medication Compliance: Yes Side effects from medications: Yes (? if ativan disinhibiting for him - ) Attending Groups: No Review of Systems Review of Systems no physical complaints Reports system reviewed and no additional complaints, except as documented, Reports as per HPI, Reports behavioral changes, Reports confusion and Reports memory loss Psychiatric: Reports behavioral changes, Reports confusion and Reports memory loss Mental Status Exam Mental Status Exam Narrative: fairly groomed Patient Orientation: Person, Place, Time and Situation Level of Consciousness: Inappropriate and Combative Patient Behavior: Posturing and Swearing Mood Description: Suspicious and Angry Affect Description: Labile Patient Cognition Impaired: No Ability to Follow Directions: Poor Speech Pattern: Inappropriate and Loud Delusions: Paranoid Ideation and Grandiose Thought Process: Illogical Thought Content: positive for Flight of Ideas Depressive Symptoms: Muscle Tension, Increased Irritability and Difficulty Sleeping Abnormal Motor Activity Signs and Symptoms: Aggression Judgement: Poor Diagnostics Vital Signs (24Hr): Vital Signs - 24 hr 05/23/20 18:00 05/24/20 06:00 Temperature 98.2 F 97.9 F Pulse Rate 115 H 87 Respiratory Rate 18 Blood Pressure 134/68 140/76 H Pulse Oximetry 99 Body Mass Index 32.5 Labs Labs: Laboratory Results - last 48 hr 05/23/20 05/23/20 08:17 08:17 Vitamin B12 261 Folate 17.0 TSH 1.47 Medications Medications Current Medications Generic Name Dose Route Start Last Admin Trade Name Freq PRN Reason Stop Dose Admin Acetaminophen 650 mg 05/20/20 17:31 05/21/20 17:34 Acetaminophen 325 Mg Tablet PO 650 mg Q6H PRN Administration Headache/Pain Mild Scale (1-3) Al Hydroxide/Mg Hydroxide 30 ml 05/20/20 17:31 Magnesium Hydrox/Alum Hydrox 30 Ml Oral.Susp PO Q6H PRN Heartburn/Nausea Benztropine Mesylate 1 mg 05/20/20 08:08 05/23/20 10:21 Benztropine Mesylate 1 Mg Tablet PO 1 mg RQ4H PRN Administration Extrapyramidal Effects Haloperidol 5 mg 05/20/20 09:00 05/24/20 09:23 Haloperidol 5 Mg Tablet PO 5 mg BID YANI Administration Haloperidol 5 mg 05/20/20 19:15 05/24/20 06:30 Haloperidol 5 Mg Tablet PO 5 mg Q6H PRN Administration psychosis , agitation Hydroxyzine HCl 25 mg 05/20/20 17:31 05/23/20 23:51 Hydroxyzine Hcl 25 Mg Tablet PO 25 mg BEDTIME PRN Administration Anxiety Lamotrigine 100 mg 05/20/20 09:00 05/24/20 09:51 Lamotrigine 100 Mg Tablet PO 100 mg BID YANI Administration [place] Carbonate 900 mg 05/23/20 21:00 05/23/20 21:31 [place] Carbonate 300 Mg Tablet PO 900 mg BEDTIME YANI Administration [place] Carbonate 600 mg 05/24/20 09:00 05/24/20 09:23 [place] Carbonate 300 Mg Capsule PO 600 mg DAILY YANI Administration Lorazepam 1 mg 05/20/20 19:19 05/24/20 06:30 Lorazepam 1 Mg Tablet PO 1 mg Q4H PRN Administration agitation/anxiety/insomnia Magnesium Hydroxide 30 ml 05/20/20 17:31 Milk Of Magnesia 30 Ml Oral.Susp PO DAILY PRN Constipation Olanzapine 5 mg 05/20/20 19:17 05/23/20 17:26 Olanzapine 5 Mg Tablet PO 5 mg Q4H PRN Administration psychosis , agitation Olanzapine 10 mg 05/22/20 09:41 05/22/20 09:54 Olanzapine 10 Mg Vial IM 10 mg BID PRN Administration Psychosis Oxcarbazepine 600 mg 05/20/20 09:00 05/24/20 09:23 Oxcarbazepine 300 Mg Tablet PO 600 mg BID YANI Administration Vitamin D 125 mcg 05/20/20 09:00 05/24/20 09:21 Cholecalciferol (Vitamin D3) 25 Mcg Tablet PO 125 mcg DAILY YANI Administration Allergies Allergies Allergy/AdvReac Type Severity Reaction Status Date / Time fluoxetine AdvReac Severe giuliana Verified 05/16/20 14:14 chlorpromazine AdvReac Intermediate sleep Verified 12/24/20 14:14 [From Thorazine] walking Assessment & Plan Assessment & Plan (1) Bipolar disorder: Status: Acute Code(s): F31.9 - Bipolar disorder, unspecified Assessment and Plan: acutely manic despite multiple medications- and mileu- security up to unit multiple times today increased his haldol at mid day and will inc trileptal from 600mg bid to 900mg bid to help gain better mood stabilization Greater than 50% of the session was spent on counseling and/or coordination of care
--- NOTE | 2020-05-24 12:02 | PC.NURSE ---
THIS AM PT BECAME UPSET WHEN HIS BREAKFAST TRAY DIDN'T HAVE EVERYTHING ON IT THAT HE HAD ORDERED. STAFF REAASURED HIM THEY HAD CALLED THE KITCHEN TO GET EVERYTHING HE WANTED. PT RECIEVED HIS TRAY, ATE AND THEN BECAME FOCUSED ON WANTING TO SEE THE SECURITY. PT YELLED, I TOLD THEM I WANTED THEM UP HERE, WHY CAN'T YOU FUCKING PEOPLE DO YOUR JOBS. PT CONTINUED TO YELL THIS WHILE AGGRESSIVLY WALKING UP THE UNIT KICKING DOORS. STAFF CALLED THE SECURITY FOR HIM AND ATTEMPTED TO GET HIM TO MEET 1:1 TO DISCUSS HIS NEEDS. PT JUMPED ON THE NURSES STATION COUNTER REFUSING TO MOVE UNTIL HI JUMPED DOWN, TOOK OFF HIS SHIRT AND BEGAN WHIPPING IT OFF THE WINDOWS. PT STATED, I'LL GET SECURITY YOU'LL SEE, I'LL FLIP THIS F--ING UNIT. PT TELLING STAFF TO GET AWAY FROM HIM, BUT CONTINUED TO KICK DOORS AND RUN UP THE HALLWAYS. PT VERY ANGRY, UNABLE TO TAKE REDIRECTION OR CALM. SECURITY ARRIVED AND PT APPROACHED THEM YELLING THAT HE WANTED DIFFERENT SECURITY. PT REACHED QUICKLY AND GRABBED THE MASK ON SECURITY WHICH WAS ATTACHED TO HER NECK. PT GUIDED AWAY FROM THIS STAFF. PT THEN SCREAMED IN THE BELL, GIVE ME IM'S, I WANT IM'S!! WITNESSED BEHAVIORS AND ORDERED IM MEDICATIONS FOR PT. ATIVAN 2 MG, ZYPREXA 10 MG, AND BENADRYL 50 MG ORDERED AND GIVEN IM. PT SAT STILL FOR MEDICATION, NO HOLD REQUIRED. PT THEN LAID DOWN AND TOOK A NAP. NO FURTHER BEHAVIORS AT THIS TIME. WILL CONTINUE TO MONITOR .
--- NOTE | 2020-05-24 15:42 | PC.NURSE ---
Pt became agitated,yelling punching exit door and swearing. PRN Ativan and scheduled haldol given. Security call to assist with patient.
[2020-05-24 18:00] VITALS: BP 148/71; PULSE 117; TEMP 37.5
[2020-05-24] MEDS: OLANZapine 5 MG TABLET PO (18:13)
[2020-05-24] MEDS: Benztropine Mesylate 1 MG TABLET PO (18:13)
--- NOTE | 2020-05-24 19:44 | PC.NURSE ---
At 1925 pt given an IM of Olanzapine 10 mg IM in Rt deltiod. Pt was yelling and throwning dishes in group rm B. Pt was angry because he did not like his dinner and wanted 2 Hamburgers and he did not get them. Pt yelling and threatening staff. Security present. Lizz from security trying to talk to patient, he begins to shove her. More security come to the unit. and he takes his shirt off ready to fight everyone. This RN quietly asked pt if he would accept Olanzapine IM. He responded yes . Pt given Im and went to his room. Pt vss. Pt denies pain or discomfort.
--- NOTE | 2020-05-24 19:49 | PC.NURSE ---
Dr Bree Manley notified of pts request at 1924 for Olanzapine 10mg IM and she put the order in.
[2020-05-24] MEDS: Lithium Carbonate 300 MG TABLET 900 MG PO (20:29)
[2020-05-24] MEDS: OXcarbazepine 300 MG TABLET 900 MG PO (20:30)
[2020-05-25 06:20] VITALS: BP 150/69; PULSE 101; RESP 20; TEMP 36.7; O2SAT 97
[2020-05-25] MEDS: HaloperidoL 5 MG TABLET PO ×4 (06:29→20:03)
[2020-05-25] MEDS: OLANZapine 5 MG TABLET PO ×2 (06:29→18:59)
[2020-05-25] MEDS: lamoTRIgine 100 MG TABLET PO ×2 (08:18→20:03)
[2020-05-25] MEDS: Cholecalciferol (Vitamin D3) 25 MCG TABLET 125 MCG PO (08:18)
[2020-05-25] MEDS: OXcarbazepine 300 MG TABLET 900 MG PO ×2 (08:19→20:04)
[2020-05-25] MEDS: Lithium Carbonate 300 MG CAPSULE 600 MG PO (08:19)
[2020-05-25] MEDS: Benztropine Mesylate 1 MG TABLET PO ×2 (09:21→14:07)
--- NOTE | 2020-05-25 13:19 | P.PNPSI_ITS ---
Subjective Subjective Date of Service: 05/25/20 Reason For Visit: giuliana Subjective Notes: 3 Day Interim History: Pt feeling better since inc in trileptal also wonders if his lithium should be increased last lvl was low but also had inc to 900mg qhs yesterday I also increased his haldol to 5mg tid Medication Compliance: Yes Side effects from medications: No Attending Groups: No Review of Systems Acute medical concerns: No Medical Review of Systems: unchanged Review of Systems Reports system reviewed and no additional complaints, except as documented, Reports as per HPI, Reports behavioral changes, Reports confusion and Reports memory loss Psychiatric: Reports behavioral changes, Reports confusion and Reports memory loss Mental Status Exam Mental Status Exam Patient Appearance: Appropriate Patient Orientation: Person, Place, Time and Situation Level of Consciousness: Awake Patient Behavior: Appropriate and Invasion - Personal Space Behavior Comments: interrupting provider with other patients Mood Description: Calm Affect Description: Labile Patient Cognition Impaired: No Ability to Follow Directions: Fair Speech Pattern: Clear Hallucinations: None Delusions: Grandiose Thought Process: Racing Thought Content: positive for Flight of Ideas Abnormal Motor Activity Signs and Symptoms: Hyperactivity Judgement: Fair Diagnostics Vital Signs (24Hr): Vital Signs - 24 hr 05/24/20 18:00 05/25/20 06:20 Temperature 99.5 F 98.0 F Pulse Rate 117 H 101 H Respiratory Rate 20 Blood Pressure 148/71 H 150/69 H Pulse Oximetry 97 Body Mass Index 32.5 Medications Medications Current Medications Generic Name Dose Route Start Last Admin Trade Name Freq PRN Reason Stop Dose Admin Acetaminophen 650 mg 05/20/20 17:31 05/21/20 17:34 Acetaminophen 325 Mg Tablet PO 650 mg Q6H PRN Administration Headache/Pain Mild Scale (1-3) Al Hydroxide/Mg Hydroxide 30 ml 05/20/20 17:31 Magnesium Hydrox/Alum Hydrox 30 Ml Oral.Susp PO Q6H PRN Heartburn/Nausea Benztropine Mesylate 1 mg 05/20/20 08:08 05/25/20 09:21 Benztropine Mesylate 1 Mg Tablet PO 1 mg RQ4H PRN Administration Extrapyramidal Effects Haloperidol 5 mg 05/20/20 19:15 05/25/20 06:29 Haloperidol 5 Mg Tablet PO 5 mg Q6H PRN Administration psychosis , agitation Haloperidol 5 mg 05/24/20 15:00 05/25/20 08:18 Haloperidol 5 Mg Tablet PO 5 mg TID YANI Administration Hydroxyzine HCl 25 mg 05/20/20 17:31 05/23/20 23:51 Hydroxyzine Hcl 25 Mg Tablet PO 25 mg BEDTIME PRN Administration Anxiety Lamotrigine 100 mg 05/20/20 09:00 05/25/20 08:18 Lamotrigine 100 Mg Tablet PO 100 mg BID YANI Administration [place] Carbonate 900 mg 05/23/20 21:00 05/24/20 20:29 [place] Carbonate 300 Mg Tablet PO 900 mg BEDTIME YANI Administration [place] Carbonate 600 mg 05/24/20 09:00 05/25/20 08:19 [place] Carbonate 300 Mg Capsule PO 600 mg DAILY YANI Administration Lorazepam 1 mg 05/20/20 19:19 05/24/20 15:34 Lorazepam 1 Mg Tablet PO 1 mg Q4H PRN Administration agitation/anxiety/insomnia Magnesium Hydroxide 30 ml 05/20/20 17:31 Milk Of Magnesia 30 Ml Oral.Susp PO DAILY PRN Constipation Olanzapine 5 mg 05/20/20 19:17 05/25/20 06:29 Olanzapine 5 Mg Tablet PO 5 mg Q4H PRN Administration psychosis , agitation Olanzapine 10 mg 05/22/20 09:41 05/24/20 19:26 Olanzapine 10 Mg Vial IM 10 mg BID PRN Administration Psychosis Oxcarbazepine 900 mg 05/24/20 21:00 05/25/20 08:19 Oxcarbazepine 300 Mg Tablet PO 900 mg BID YANI Administration Vitamin D 125 mcg 05/20/20 09:00 05/25/20 08:18 Cholecalciferol (Vitamin D3) 25 Mcg Tablet PO 125 mcg DAILY YANI Administration Allergies Allergies Allergy/AdvReac Type Severity Reaction Status Date / Time fluoxetine AdvReac Severe giuliana Verified 05/16/20 14:14 chlorpromazine AdvReac Intermediate sleep Verified 05/16/20 14:14 [From Thorazine] walking Assessment & Plan Assessment & Plan (1) Bipolar disorder: Status: Acute Code(s): F31.9 - Bipolar disorder, unspecified Assessment and Plan: Patient educated on: diagnosis, medication risk/benefits, therapeutic strategies and medical condition Informed Consent: understands and further education needed Reason for contiued inpatient stay Substantial Risk for: harm to self, harm to others, inability to function, rapid decompensation and med/psych decompensation Greater than 50% of the session was spent on counseling and/or coordination of care
[2020-05-25 18:00] VITALS: BP 134/85; PULSE 118; TEMP 36.9
[2020-05-25] MEDS: Lithium Carbonate 300 MG TABLET 900 MG PO (20:03)
[2020-05-25] MEDS: hydrOXYzine HCL 25 MG TABLET PO (21:54)
[2020-05-26] MEDS: HaloperidoL 5 MG TABLET PO ×4 (01:43→20:02)
[2020-05-26] MEDS: Benztropine Mesylate 1 MG TABLET PO ×3 (01:43→14:47)
[2020-05-26 07:15] VITALS: BP 144/99; PULSE 95; RESP 16; TEMP 36.8; O2SAT 98
[2020-05-26] MEDS: LORazepam 1 MG TABLET PO (07:30)
[2020-05-26 08:45] LABS: MANUAL DIFF FLAG NO
[2020-05-26 08:50] LABS: Basophils Absolute Auto 0.1 X10*3/uL (0.0-0.2); Basophils Percent Auto 0.5 % (0-2); Eosinophils Absolute Auto 0.4 X10*3/uL (0.0-0.4); Eosinophils Percent Auto 4.8 % (0-4); Hematocrit 43.3 % (42-52); Hemoglobin 14.3 g/dl (14.0-18.0); Imm Gran Abs Auto 0.07 X10*3/uL (0.00-0.03); Imm Gran Pct Auto 0.8 % (0.0-0.4); Lymphocytes Percent Auto 21.6 % (20-40); Mean Corpuscular Hemoglobin 28.6 pg (27.0-33.0); Mean Corpuscular Volume 86.6 fL (80-98); Monocytes Absolute Auto 1.1 X10*3/uL (0.1-1.2); Monocytes Percent Auto 11.9 % (2-11); Neutrophils Absolute Auto 5.6 X10*3/uL (2.0-8.3); Neutrophils Percent Auto 60.4 % (45-73); Platelet Count 260 X10*3/uL (160-400); Red Cell Distribution Width 13.2 % (11.0-16.0); White Blood Count 9.2 X10*3/uL (4.8-10.8)
[2020-05-26 09:07] LABS: Lithium 0.43 mmol/L (0.60-1.20)
[2020-05-26] MEDS: Lithium Carbonate 300 MG CAPSULE 600 MG PO (09:11)
[2020-05-26] MEDS: OXcarbazepine 300 MG TABLET 900 MG PO ×2 (09:15→20:03)
[2020-05-26] MEDS: Cholecalciferol (Vitamin D3) 25 MCG TABLET 125 MCG PO (09:16)
[2020-05-26] MEDS: lamoTRIgine 100 MG TABLET PO ×2 (09:16→20:02)
--- NOTE | 2020-05-26 13:00 | P.PNPSI_ITS ---
Subjective Subjective Date of Service: 05/26/20 Reason For Visit: giuliana Subjective Notes: 3 Day Interim History: Pt reports he had a good day yesterday feeling increase trileptal was helpful more in control of his behavior doesn't want anything changed not expecting dc tomorrow - as he has only had 1 day without aggression Medication Compliance: Yes Side effects from medications: No Attending Groups: No Review of Systems Reports system reviewed and no additional complaints, except as documented, Reports as per HPI, Reports behavioral changes, Reports confusion and Reports memory loss Psychiatric: Reports behavioral changes, Reports confusion and Reports memory loss Mental Status Exam Mental Status Exam Narrative: casually dressed, good eye contact short attention span Level of Consciousness: Awake and Appropriate Patient Behavior: Appropriate and Talkative Mood Description: Expansive Affect Description: Calm (calmer) Patient Cognition Impaired: No Ability to Follow Directions: Fair Speech Pattern: Clear Hallucinations: None Delusions: Grandiose Thought Process: Racing Thought Content: positive for Flight of Ideas Abnormal Motor Activity Signs and Symptoms: Restlessness Judgement: Fair Judgement and Insight: improving Diagnostics Vital Signs (24Hr): Vital Signs - 24 hr 05/25/20 18:00 05/26/20 07:15 Temperature 98.5 F 98.3 F Pulse Rate 118 H 95 Respiratory Rate 16 Blood Pressure 134/85 144/99 H Pulse Oximetry 98 Body Mass Index 32.5 Labs Results: 05/26/20 08:26 Labs: Laboratory Results - last 48 hr 05/26/20 05/26/20 08:26 08:26 WBC 9.2 RBC 5.00 Hgb 14.3 Hct 43.3 MCV 86.6 MCH 28.6 MCHC 33.0 RDW 13.2 Plt Count 260 MPV 11.0 Immature Gran % (Auto) 0.8 H Neut % (Auto) 60.4 Lymph % (Auto) 21.6 [place] % (Auto) 11.9 H Eos % (Auto) 4.8 H Baso % (Auto) 0.5 Lymph # (Auto) 2.0 [place] # (Auto) 1.1 Eos # (Auto) 0.4 Baso # (Auto) 0.1 Abs Immat Gran (auto) 0.07 H Absolute Neuts (auto) 5.6 Absolute Nucleated RBC 0.000 Nucleated RBC % (auto) 0.0 [place] 0.43 L Medications Medications Current Medications Generic Name Dose Route Start Last Admin Trade Name Freq PRN Reason Stop Dose Admin Acetaminophen 650 mg 05/20/20 17:31 05/21/20 17:34 Acetaminophen 325 Mg Tablet PO 650 mg Q6H PRN Administration Headache/Pain Mild Scale (1-3) Al Hydroxide/Mg Hydroxide 30 ml 05/20/20 17:31 Magnesium Hydrox/Alum Hydrox 30 Ml Oral.Susp PO Q6H PRN Heartburn/Nausea Benztropine Mesylate 1 mg 05/20/20 08:08 05/26/20 07:30 Benztropine Mesylate 1 Mg Tablet PO 1 mg RQ4H PRN Administration Extrapyramidal Effects Haloperidol 5 mg 05/20/20 19:15 05/26/20 01:43 Haloperidol 5 Mg Tablet PO 5 mg Q6H PRN Administration psychosis , agitation Haloperidol 5 mg 05/24/20 15:00 05/26/20 07:30 Haloperidol 5 Mg Tablet PO 5 mg TID YANI Administration Hydroxyzine HCl 25 mg 05/20/20 17:31 05/25/20 21:54 Hydroxyzine Hcl 25 Mg Tablet PO 25 mg BEDTIME PRN Administration Anxiety Lamotrigine 100 mg 05/20/20 09:00 05/26/20 09:16 Lamotrigine 100 Mg Tablet PO 100 mg BID YANI Administration [place] Carbonate 900 mg 05/23/20 21:00 05/25/20 20:03 [place] Carbonate 300 Mg Tablet PO 900 mg BEDTIME YANI Administration [place] Carbonate 600 mg 05/24/20 09:00 05/26/20 09:11 [place] Carbonate 300 Mg Capsule PO 600 mg DAILY YANI Administration Lorazepam 1 mg 05/20/20 19:19 05/26/20 07:30 Lorazepam 1 Mg Tablet PO 1 mg Q4H PRN Administration agitation/anxiety/insomnia Magnesium Hydroxide 30 ml 05/20/20 17:31 Milk Of Magnesia 30 Ml Oral.Susp PO DAILY PRN Constipation Olanzapine 5 mg 05/20/20 19:17 05/25/20 18:59 Olanzapine 5 Mg Tablet PO 5 mg Q4H PRN Administration psychosis , agitation Olanzapine 10 mg 05/22/20 09:41 05/24/20 19:26 Olanzapine 10 Mg Vial IM 10 mg BID PRN Administration Psychosis Oxcarbazepine 900 mg 05/24/20 21:00 05/26/20 09:15 Oxcarbazepine 300 Mg Tablet PO 900 mg BID YAIN Administration Vitamin D 125 mcg 05/20/20 09:00 05/26/20 09:16 Cholecalciferol (Vitamin D3) 25 Mcg Tablet PO 125 mcg DAILY YANI Administration Allergies Allergies Allergy/AdvReac Type Severity Reaction Status Date / Time fluoxetine AdvReac Severe giuliana Verified 05/16/20 14:14 chlorpromazine AdvReac Intermediate sleep Verified 05/16/20 14:14 [From Thorazine] walking Assessment & Plan Assessment & Plan (1) Bipolar disorder: Status: Acute Code(s): F31.9 - Bipolar disorder, unspecified Assessment and Plan: stabilizing with med changes more in control of anger/labile mood Greater than 50% of the session was spent on counseling and/or coordination of care
[2020-05-26 13:58] VITALS: BP 139/63; PULSE 83; TEMP 36.8; O2SAT 98
[2020-05-26 18:00] VITALS: BP 137/63; PULSE 94; TEMP 36.9
[2020-05-26] MEDS: OLANZapine 5 MG TABLET PO (18:17)
[2020-05-26] MEDS: Lithium Carbonate 300 MG TABLET 900 MG PO (20:02)
[2020-05-27] MEDS: OLANZapine 5 MG TABLET PO (00:07)
[2020-05-27] MEDS: hydrOXYzine HCL 25 MG TABLET PO (00:08)
[2020-05-27 06:45] VITALS: BP 145/63; PULSE 90; RESP 18; TEMP 36.2; O2SAT 97
[2020-05-27 08:35] LABS: Lithium 0.45 mmol/L (0.60-1.20)
[2020-05-27] MEDS: lamoTRIgine 100 MG TABLET PO ×2 (08:48→20:15)
[2020-05-27] MEDS: Lithium Carbonate 300 MG CAPSULE 600 MG PO ×2 (08:48→20:14)
[2020-05-27] MEDS: OXcarbazepine 300 MG TABLET 900 MG PO ×2 (08:48→20:14)
[2020-05-27] MEDS: Cholecalciferol (Vitamin D3) 25 MCG TABLET 125 MCG PO (08:49)
[2020-05-27] MEDS: HaloperidoL 5 MG TABLET PO ×3 (08:49→20:15)
[2020-05-27] MEDS: Benztropine Mesylate 1 MG TABLET PO (10:46)
[2020-05-27] MEDS: LORazepam 1 MG TABLET PO (11:45)
--- NOTE | 2020-05-27 16:50 | P.PNPSI_ITS ---
Subjective Subjective Date of Service: 05/27/20 Reason For Visit: giuliana Subjective Notes: 3 Day Interim History: [place] level 0.45. Pt reports feeling improved, has signed a three day notice as he reports he needed to wait to obtain water over the weekend. States he will retract if we believe he needs more treatment. States giuliana is not a healthy state for him and he will comply with treatment. Willing to titrate [place]. Medication Compliance: Yes Side effects from medications: No Attending Groups: No Review of Systems Reports system reviewed and no additional complaints, except as documented, Reports as per HPI, Reports behavioral changes, Reports confusion and Reports memory loss Psychiatric: Reports behavioral changes, Reports confusion, Reports irritability, Reports memory loss and Reports mood swings Mental Status Exam Mental Status Exam Patient Appearance: Well Grooomed Patient Orientation: Person, Place and Situation Level of Consciousness: Awake and Alert Patient Behavior: Talkative, Hyperactive, Cooperative, Wandering, Anxious and Distractible Mood Description: Labile and Expansive Affect Description: Labile Patient Cognition Impaired: Yes Ability to Follow Directions: Fair Speech Pattern: Spontaneous Speech, Rambling, Rapid and Pressured Memory Description: Episodic Impaired Hallucinations: None (denies) Delusions: Paranoid Ideation Thought Process: Racing, Illogical (at times) and Distracted Thought Content: positive for Flight of Ideas Abnormal Motor Activity Signs and Symptoms: Agitation and Restlessness Judgement: Poor Diagnostics Vital Signs (24Hr): Vital Signs - 24 hr 05/26/20 18:00 05/27/20 06:45 Temperature 98.5 F 97.2 F Pulse Rate 94 90 Respiratory Rate 18 Blood Pressure 137/63 145/63 H Pulse Oximetry 97 Body Mass Index 32.5 Labs Results: 05/26/20 08:26 Labs: Laboratory Results - last 48 hr 05/26/20 05/26/20 05/27/20 08:26 08:26 07:56 WBC 9.2 RBC 5.00 Hgb 14.3 Hct 43.3 MCV 86.6 MCH 28.6 MCHC 33.0 RDW 13.2 Plt Count 260 MPV 11.0 Immature Gran % (Auto) 0.8 H Neut % (Auto) 60.4 Lymph % (Auto) 21.6 [place] % (Auto) 11.9 H Eos % (Auto) 4.8 H Baso % (Auto) 0.5 Lymph # (Auto) 2.0 [place] # (Auto) 1.1 Eos # (Auto) 0.4 Baso # (Auto) 0.1 Abs Immat Gran (auto) 0.07 H Absolute Neuts (auto) 5.6 Absolute Nucleated RBC 0.000 Nucleated RBC % (auto) 0.0 [place] 0.43 L 0.45 L Medications Medications Current Medications Generic Name Dose Route Start Last Admin Trade Name Freq PRN Reason Stop Dose Admin Acetaminophen 650 mg 05/20/20 17:31 05/21/20 17:34 Acetaminophen 325 Mg Tablet PO 650 mg Q6H PRN Administration Headache/Pain Mild Scale (1-3) Al Hydroxide/Mg Hydroxide 30 ml 05/20/20 17:31 Magnesium Hydrox/Alum Hydrox 30 Ml Oral.Susp PO Q6H PRN Heartburn/Nausea Benztropine Mesylate 1 mg 05/20/20 08:08 05/27/20 10:46 Benztropine Mesylate 1 Mg Tablet PO 1 mg RQ4H PRN Administration Extrapyramidal Effects Haloperidol 5 mg 05/20/20 19:15 05/26/20 01:43 Haloperidol 5 Mg Tablet PO 5 mg Q6H PRN Administration psychosis , agitation Haloperidol 5 mg 05/24/20 15:00 05/27/20 15:06 Haloperidol 5 Mg Tablet PO 5 mg TID YANI Administration Hydroxyzine HCl 25 mg 05/20/20 17:31 05/27/20 00:08 Hydroxyzine Hcl 25 Mg Tablet PO 25 mg BEDTIME PRN Administration Anxiety Lamotrigine 100 mg 05/20/20 09:00 05/27/20 08:48 Lamotrigine 100 Mg Tablet PO 100 mg BID YANI Administration [place] Carbonate 600 mg 05/27/20 21:00 [place] Carbonate 300 Mg Capsule PO TID YANI [place] Carbonate 300 mg 05/27/20 21:00 [place] Carbonate 300 Mg Capsule PO BEDTIME YANI Lorazepam 1 mg 05/20/20 19:19 05/27/20 11:45 Lorazepam 1 Mg Tablet PO 1 mg Q4H PRN Administration agitation/anxiety/insomnia Magnesium Hydroxide 30 ml 05/20/20 17:31 Milk Of Magnesia 30 Ml Oral.Susp PO DAILY PRN Constipation Olanzapine 5 mg 05/20/20 19:17 05/27/20 00:07 Olanzapine 5 Mg Tablet PO 5 mg Q4H PRN Administration psychosis , agitation Olanzapine 10 mg 05/22/20 09:41 05/24/20 19:26 Olanzapine 10 Mg Vial IM 10 mg BID PRN Administration Psychosis Oxcarbazepine 900 mg 05/24/20 21:00 05/27/20 08:48 Oxcarbazepine 300 Mg Tablet PO 900 mg BID YANI Administration Vitamin D 125 mcg 05/20/20 09:00 05/27/20 08:49 Cholecalciferol (Vitamin D3) 25 Mcg Tablet PO 125 mcg DAILY YANI Administration Allergies Allergies Allergy/AdvReac Type Severity Reaction Status Date / Time fluoxetine AdvReac Severe giuliana Verified 05/16/20 14:14 chlorpromazine AdvReac Intermediate sleep Verified 05/16/20 14:14 [From Thorazine] walking Assessment & Plan Assessment & Plan (1) Bipolar disorder: Status: Acute Code(s): F31.9 - Bipolar disorder, unspecified Assessment and Plan: -Increase [place] to 600 mg tid. Greater than 50% of the session was spent on counseling and/or coordination of care Patient educated on: medication risk/benefits and therapeutic strategies Informed Consent: further education needed Reason for contiued inpatient stay Substantial Risk for: harm to self, harm to others, inability to function and rapid decompensation
[2020-05-27 19:30] VITALS: BP 139/71; PULSE 98; TEMP 36.7
[2020-05-28] MEDS: OLANZapine 5 MG TABLET PO (00:03)
[2020-05-28] MEDS: hydrOXYzine HCL 25 MG TABLET PO (00:03)
[2020-05-28 06:30] VITALS: BP 138/83; PULSE 93; RESP 18; TEMP 36.3; O2SAT 98
[2020-05-28] MEDS: Cholecalciferol (Vitamin D3) 25 MCG TABLET 125 MCG PO (08:20)
[2020-05-28] MEDS: Lithium Carbonate 300 MG CAPSULE 600 MG PO ×3 (08:21→20:16)
[2020-05-28] MEDS: lamoTRIgine 100 MG TABLET PO ×2 (08:22→20:17)
[2020-05-28] MEDS: HaloperidoL 5 MG TABLET PO ×3 (08:22→20:17)
[2020-05-28] MEDS: OXcarbazepine 300 MG TABLET 900 MG PO ×2 (08:22→20:17)
[2020-05-28] MEDS: LORazepam 1 MG TABLET PO (09:41)
--- NOTE | 2020-05-28 15:59 | HO.PSYCHPN ---
Subjective Subjective Date of Service: 05/28/20 Reason For Visit: giuliana Subjective Notes: 3 Day (Pt retracted) Interim History: [place] Level 0.45. Dosing increase to 600 mg tid. Labile range-cheerful to irritable, overall more control, avoiding conflict with other patients. Next level on 05/30/20. Using prn's Medication Compliance: Yes Side effects from medications: No Attending Groups: No Review of Systems Reports system reviewed and no additional complaints, except as documented, Reports as per HPI, Reports behavioral changes, Reports confusion and Reports memory loss Psychiatric: Reports behavioral changes, Reports confusion, Reports memory loss and Reports mood swings Mental Status Exam Mental Status Exam Patient Appearance: Appropriate Patient Orientation: Person, Place and Situation Level of Consciousness: Alert Patient Behavior: Talkative and Cooperative Mood Description: Labile Affect Description: Labile Patient Cognition Impaired: Yes Ability to Follow Directions: Good Speech Pattern: Spontaneous Speech Memory Description: Intact Hallucinations: None Delusions: Not Present Thought Process: Racing Thought Content: positive for [place] Judgement: Fair Diagnostics Vital Signs (24Hr): Vital Signs - 24 hr 05/27/20 19:30 05/28/20 06:30 Temperature 98.1 F 97.3 F Pulse Rate 98 93 Respiratory Rate 18 Blood Pressure 139/71 138/83 Pulse Oximetry 98 Body Mass Index 32.5 Labs Results: 05/26/20 08:26 Labs: Laboratory Results - last 48 hr 05/27/20 07:56 [place] 0.45 L Medications Medications Current Medications Generic Name Dose Route Start Last Admin Trade Name Freq PRN Reason Stop Dose Admin Acetaminophen 650 mg 05/20/20 17:31 05/21/20 17:34 Acetaminophen 325 Mg Tablet PO 650 mg Q6H PRN Administration Headache/Pain Mild Scale (1-3) Al Hydroxide/Mg Hydroxide 30 ml 05/20/20 17:31 Magnesium Hydrox/Alum Hydrox 30 Ml Oral.Susp PO Q6H PRN Heartburn/Nausea Benztropine Mesylate 1 mg 05/20/20 08:08 05/27/20 10:46 Benztropine Mesylate 1 Mg Tablet PO 1 mg RQ4H PRN Administration Extrapyramidal Effects Haloperidol 5 mg 05/20/20 19:15 05/26/20 01:43 Haloperidol 5 Mg Tablet PO 5 mg Q6H PRN Administration psychosis , agitation Haloperidol 5 mg 05/24/20 15:00 05/28/20 14:47 Haloperidol 5 Mg Tablet PO 5 mg TID YANI Administration Hydroxyzine HCl 25 mg 05/20/20 17:31 05/28/20 00:03 Hydroxyzine Hcl 25 Mg Tablet PO 25 mg BEDTIME PRN Administration Anxiety Lamotrigine 100 mg 05/20/20 09:00 05/28/20 08:22 Lamotrigine 100 Mg Tablet PO 100 mg BID YANI Administration [place] Carbonate 600 mg 05/27/20 21:00 05/28/20 14:47 [place] Carbonate 300 Mg Capsule PO 600 mg TID YANI Administration Lorazepam 1 mg 05/20/20 19:19 05/28/20 09:41 Lorazepam 1 Mg Tablet PO 1 mg Q4H PRN Administration agitation/anxiety/insomnia Magnesium Hydroxide 30 ml 05/20/20 17:31 Milk Of Magnesia 30 Ml Oral.Susp PO DAILY PRN Constipation Olanzapine 5 mg 05/20/20 19:17 05/28/20 00:03 Olanzapine 5 Mg Tablet PO 5 mg Q4H PRN Administration psychosis , agitation Olanzapine 10 mg 05/22/20 09:41 05/24/20 19:26 Olanzapine 10 Mg Vial IM 10 mg BID PRN Administration Psychosis Oxcarbazepine 900 mg 05/24/20 21:00 05/28/20 08:22 Oxcarbazepine 300 Mg Tablet PO 900 mg BID YANI Administration Vitamin D 125 mcg 05/20/20 09:00 05/28/20 08:20 Cholecalciferol (Vitamin D3) 25 Mcg Tablet PO 125 mcg DAILY YANI Administration Allergies Allergies Allergy/AdvReac Type Severity Reaction Status Date / Time fluoxetine AdvReac Severe giuliana Verified 05/16/20 14:14 chlorpromazine AdvReac Intermediate sleep Verified 05/16/20 14:14 [From Thorazine] walking Assessment & Plan Assessment & Plan (1) Bipolar disorder: Status: Acute Code(s): F31.9 - Bipolar disorder, unspecified Assessment and Plan: -Continue current regime -[place] level 05/30/20. Greater than 50% of the session was spent on counseling and/or coordination of care Patient educated on: therapeutic strategies Informed Consent: further education needed
[2020-05-28 19:15] VITALS: BP 151/64; PULSE 97; TEMP 36.7
[2020-05-29] MEDS: OLANZapine 5 MG TABLET PO ×2 (03:58→22:28)
[2020-05-29 06:00] VITALS: BP 143/78; PULSE 86; TEMP 37
[2020-05-29] MEDS: Lithium Carbonate 300 MG CAPSULE 600 MG PO ×3 (08:21→20:16)
[2020-05-29] MEDS: lamoTRIgine 100 MG TABLET PO ×2 (08:21→20:16)
[2020-05-29] MEDS: HaloperidoL 5 MG TABLET PO (08:22)
[2020-05-29] MEDS: OXcarbazepine 300 MG TABLET 900 MG PO ×2 (08:22→20:16)
[2020-05-29] MEDS: Cholecalciferol (Vitamin D3) 25 MCG TABLET 125 MCG PO (08:47)
[2020-05-29] MEDS: LORazepam 1 MG TABLET PO (12:23)
[2020-05-29 18:00] VITALS: BP 137/68; PULSE 100; TEMP 36.7
--- NOTE | 2020-05-29 19:08 | P.PNPSI_ITS ---
Subjective Subjective Date of Service: 05/29/20 Reason For Visit: giuliana Interim History: Reports feeling improved. Discussed increase in Haldol which he agrees with. [place] level 05/30/20. Medication Compliance: Yes Side effects from medications: No Attending Groups: No Review of Systems Reports system reviewed and no additional complaints, except as documented, Reports as per HPI, Reports behavioral changes, Reports confusion and Reports memory loss Psychiatric: Reports behavioral changes, Reports confusion, Reports irritability, Reports memory loss and Reports mood swings Mental Status Exam Mental Status Exam Patient Appearance: Appropriate Patient Orientation: Person, Place, Time and Situation Level of Consciousness: Awake and Alert Patient Behavior: Appropriate Mood Description: Constricted Affect Description: Constricted Patient Cognition Impaired: No Ability to Follow Directions: Good Speech Pattern: Spontaneous Speech Memory Description: Intact Hallucinations: None Delusions: Not Present Thought Process: Goal Oriented Thought Content: positive for [place] and positive for Circumstantial Abnormal Motor Activity Signs and Symptoms: Restlessness Judgement: Fair Diagnostics Vital Signs (24Hr): Vital Signs - 24 hr 05/28/20 19:15 05/29/20 06:00 Temperature 98.1 F 98.6 F Pulse Rate 97 86 Blood Pressure 151/64 H 143/78 H Body Mass Index 32.5 Labs Results: 05/26/20 08:26 Medications Medications Current Medications Generic Name Dose Route Start Last Admin Trade Name Freq PRN Reason Stop Dose Admin Acetaminophen 650 mg 05/20/20 17:31 05/21/20 17:34 Acetaminophen 325 Mg Tablet PO 650 mg Q6H PRN Administration Headache/Pain Mild Scale (1-3) Al Hydroxide/Mg Hydroxide 30 ml 05/20/20 17:31 Magnesium Hydrox/Alum Hydrox 30 Ml Oral.Susp PO Q6H PRN Heartburn/Nausea Benztropine Mesylate 1 mg 05/20/20 08:08 05/27/20 10:46 Benztropine Mesylate 1 Mg Tablet PO 1 mg RQ4H PRN Administration Extrapyramidal Effects Haloperidol 5 mg 05/20/20 19:15 05/26/20 01:43 Haloperidol 5 Mg Tablet PO 5 mg Q6H PRN Administration psychosis , agitation Haloperidol 10 mg 05/29/20 21:00 Haloperidol 5 Mg Tablet PO BID YANI Hydroxyzine HCl 25 mg 05/20/20 17:31 05/28/20 00:03 Hydroxyzine Hcl 25 Mg Tablet PO 25 mg BEDTIME PRN Administration Anxiety Lamotrigine 100 mg 05/20/20 09:00 05/29/20 08:21 Lamotrigine 100 Mg Tablet PO 100 mg BID YANI Administration [place] Carbonate 600 mg 05/27/20 21:00 05/29/20 14:51 [place] Carbonate 300 Mg Capsule PO 600 mg TID YANI Administration Lorazepam 1 mg 05/20/20 19:19 05/29/20 12:23 Lorazepam 1 Mg Tablet PO 1 mg Q4H PRN Administration agitation/anxiety/insomnia Magnesium Hydroxide 30 ml 05/20/20 17:31 Milk Of Magnesia 30 Ml Oral.Susp PO DAILY PRN Constipation Olanzapine 5 mg 05/20/20 19:17 05/29/20 03:58 Olanzapine 5 Mg Tablet PO 5 mg Q4H PRN Administration psychosis , agitation Olanzapine 10 mg 05/22/20 09:41 05/24/20 19:26 Olanzapine 10 Mg Vial IM 10 mg BID PRN Administration Psychosis Oxcarbazepine 900 mg 05/24/20 21:00 05/29/20 08:22 Oxcarbazepine 300 Mg Tablet PO 900 mg BID YANI Administration Vitamin D 125 mcg 05/20/20 09:00 05/29/20 08:47 Cholecalciferol (Vitamin D3) 25 Mcg Tablet PO 125 mcg DAILY YANI Administration Allergies Allergies Allergy/AdvReac Type Severity Reaction Status Date / Time fluoxetine AdvReac Severe giuliana Verified 05/16/20 14:14 chlorpromazine AdvReac Intermediate sleep Verified 05/16/20 14:14 [From Thorazine] walking Assessment & Plan Assessment & Plan (1) Bipolar disorder: Status: Acute Code(s): F31.9 - Bipolar disorder, unspecified Assessment and Plan: Increase Haldol from 5 mg tid to 10 mg bid [place] Level 05/30/20 Greater than 50% of the session was spent on counseling and/or coordination of care
[2020-05-29] MEDS: HaloperidoL 5 MG TABLET 10 MG PO (20:16)
[2020-05-29] MEDS: hydrOXYzine HCL 25 MG TABLET PO (22:28)
[2020-05-30 06:00] VITALS: BP 154/65; PULSE 103; TEMP 36.1; O2SAT 96
[2020-05-30] MEDS: Cholecalciferol (Vitamin D3) 25 MCG TABLET 125 MCG PO (08:45)
[2020-05-30] MEDS: lamoTRIgine 100 MG TABLET PO (08:45)
[2020-05-30] MEDS: HaloperidoL 5 MG TABLET 10 MG PO (08:46)
[2020-05-30] MEDS: Lithium Carbonate 300 MG CAPSULE 600 MG PO (08:46)
[2020-05-30] MEDS: OXcarbazepine 300 MG TABLET 900 MG PO (08:46)
[2020-05-30 09:03] LABS: Lithium 0.54 mmol/L (0.60-1.20)
[2020-05-30] MEDS: LORazepam 1 MG TABLET PO (10:55)
--- NOTE | 2020-05-30 16:41 | P.DS_ITS ---
DS: Providers Provider Date of Service: 06/11/20 Date of admission: 05/20/20 13:44 Date of discharge: 05/30/20 Primary care physician: PRANAV García Admitting clinician: Fina Tam Attending physician on admission: Gustabo Rivas Attending physician on discharge: Gustabo Rivas Discharging clinician: Fina Tam DS: Diagnosis Discharge Diagnosis (1) Bipolar disorder: Status: Acute Problem details: Pt returned to the ER after discharge exhibiting sx of giuliana, SI, HI, agitation and psychosis. [place] levels were low. Pt was also delusional with grandiose content. DS: Medications Discharge Medications Home Medications: Previous Rx's Medication Instructions Recorded benztropine 1 mg PO RQ4H PRN #30 tab 05/30/20 cholecalciferol (vitamin D3) 125 mcg PO DAILY #30 tab 05/30/20 haloperidol 10 mg PO BID #60 tab 05/30/20 lamotrigine 100 mg PO BID #60 tab 05/30/20 lithium carbonate 600 mg PO TID #180 cap 05/30/20 olanzapine 1 tab PO BEDTIME #30 tab 05/30/20 oxcarbazepine 900 mg PO BID #180 tab 05/30/20 Discharge Plan Discharge Anticipated Discharge Date/Time: 05/30/20 14:00 Patient Disposition: Home, Self-Care Referrals: [facility] [Other] - 05/31/20 ( ) Brian Collins PA-C [Physician [employer]] - 06/03/20 11:00 am (OFFICE TO CALL ON 06-03-20 USING [employer] [facility]) Shamir Daily MD [Physician] - 06/05/20 11:30 am Physician,Unknown [Primary Care Provider] - Discharge Medications: New haloperidol 5 mg Tablet 10 mg PO BID Qty: 60 RF: 0 oxcarbazepine 300 mg Tablet 900 mg PO BID Qty: 180 RF: 0 lithium carbonate 300 mg Capsule 600 mg PO TID Qty: 180 RF: 0 Continued olanzapine 5 mg tablet 1 tab PO BEDTIME Qty: 30 RF: 0 benztropine 1 mg Tablet 1 mg PO RQ4H PRN (Reason: Extrapyramidal Effects) Qty: 30 RF: 0 lamotrigine 100 mg Tablet 100 mg PO BID Qty: 60 RF: 0 cholecalciferol (vitamin D3) 25 mcg (1,000 unit) Tablet 125 mcg PO DAILY Qty: 30 RF: 0 Discontinued oxcarbazepine 300 mg tablet 600 mg PO BID RF: 0 trazodone 50 mg Tablet 50 mg PO BEDTIME PRN (Reason: Insomnia) Qty: 30 RF: 0 haloperidol 5 mg Tablet 5 mg PO BID Qty: 60 RF: 0 lithium carbonate 300 mg Capsule 600 mg PO BID Qty: 120 RF: 0 Discharge Orders: Discharge Order (Routine); Ordered 05/30/20 Ordered By: Fina Tam Diet: advance to usual diet Activity on Discharge: As tolerated Stand Alone Forms: Community Support Discharge Date/Time: 05/30/20 13:55 Visit Report Forms: Patient Portal Discharge page Care Plan Goals: Mood Stability Stable sleep schedule Feeling well-without lability or excess sedation Health Concerns: Pt denies Plan of Treatment: Continue Medication Regime Follow up with therapy and medication appointments Lab work with your out patient providers Mental Status Exam Mental Status Exam Patient Appearance: Appropriate Patient Orientation: Person, Place and Situation Level of Consciousness: Awake and Alert Patient Behavior: Appropriate Mood Description: Blunted Affect Description: Blunted Patient Cognition Impaired: No Ability to Follow Directions: Excellent Speech Pattern: Spontaneous Speech Memory Description: Intact Hallucinations: None (denies) Delusions: Not Present Thought Process: Intact and Goal Oriented Thought Content: positive for [place] and positive for Circumstantial Judgement: Good Data Data Completed and Pending Completed studies during hospitalization [Text1]: 05/26/20 05/26/20 05/27/20 08:26 08:26 07:56 WBC 9.2 RBC 5.00 Hgb 14.3 Hct 43.3 MCV 86.6 MCH 28.6 MCHC 33.0 RDW 13.2 Plt Count 260 MPV 11.0 Immature Gran % (Auto) 0.8 H Neut % (Auto) 60.4 Lymph % (Auto) 21.6 [place] % (Auto) 11.9 H Eos % (Auto) 4.8 H Baso % (Auto) 0.5 Lymph # (Auto) 2.0 [place] # (Auto) 1.1 Eos # (Auto) 0.4 Baso # (Auto) 0.1 Abs Immat Gran (auto) 0.07 H Absolute Neuts (auto) 5.6 Absolute Nucleated RBC 0.000 Nucleated RBC % (auto) 0.0 [place] 0.43 L 0.45 L 05/30/20 08:08 WBC RBC Hgb Hct MCV MCH MCHC RDW Plt Count MPV Immature Gran % (Auto) Neut % (Auto) Lymph % (Auto) [place] % (Auto) Eos % (Auto) Baso % (Auto) Lymph # (Auto) [place] # (Auto) Eos # (Auto) Baso # (Auto) Abs Immat Gran (auto) Absolute Neuts (auto) Absolute Nucleated RBC Nucleated RBC % (auto) [place] 0.54 L DS: Summary Hospital Course Hospital Course: Pt was stabilized on a regime of Haldol, [place], Trileptal, Benztropine, Lamictal, Olanzapine which were titrated during admission. Pt's [place] level was difficult to increase without SE, and as a result, Trileptal was titrated. Nursing offered 1:1 support in the milieu for symptom managment, breakthough sx of giuliana and agitation and recompensation to his baseline. senior administrative services officer maintained contact with pt's mother and completed discharge planning with referral to [facility] and a return to out patient team. Time spent discussing smoking cessation with patient: 3 to 10 minutes Status at Discharge Cognitive/behavioral status at discharge: Alert, oriented, calm, non psychotic, mood is blunted as is affect Functional status at discharge: independent ambulation Overall status at discharge: patient is progressing back to baseline Time Spent with Patient Time attestation: Total time spent providing and/or coordinating discharge services: 40 Time spent: Greater than 30 minutes
== END 2020-05-30 13:55 | disposition home or self-care (01) | DRG 753 ==
LOC: HO.ED 05-20 07:45 → HO.PM5 05-20 13:59
PROVIDERS: Clinical Nurse Specialist Psychiatric/Mental Health, Adult; Physician Assistant; Psychiatry & Neurology Psychiatry; Admitting Provider Psychiatry & Neurology Psychiatry; Emergency Provider Emergency Medicine Emergency Medical Services; Visit Provider Psychiatry & Neurology Psychiatry
DX: F31.9 Bipolar disorder, unspecified (principal); Z20.828 Contact with and (suspected) exposure to other viral communicable diseases; Z79.899 Other long term (current) drug therapy
CPT/HCPCS: 36415; 80178; 82607; 82746; 84443; 85025; 87635; 96372; 99223; 99232; 99233; 99285; J1200; J2060; J3230

== ENCOUNTER 2020-06-13 10:38 | Outpatient (REF) | payer OTHER, SELFPAY ==
[2020-06-13 12:23] LABS: Lithium 0.49 mmol/L (0.60-1.20)
[2020-06-13 13:00] LABS: Vitamin D 25-OH Total 46.3 ng/mL (>30)
[2020-06-17 10:52] LABS: Oxcarbazepine 19.3 mcg/mL (8.0-35.0)
== END 2020-06-13 10:39 | disposition home or self-care (01) ==
LOC: HO.LAB 10:38
PROVIDERS: Psychiatry & Neurology Psychiatry; PCP Physician Assistant; Visit Provider Psychiatry & Neurology Psychiatry
DX: F31.4 Bipolar disorder, current episode depressed, severe, without psychotic features (principal); E55.9 Vitamin D deficiency, unspecified
CPT/HCPCS: 36415; 80178; 80339; 82306

== ENCOUNTER 2020-07-04 11:09 | Outpatient (REF) | payer OTHER, SELFPAY ==
--- NOTE | ~2020-07-04 | XR_ITS ---
EXAMINATION: XR CERVICAL SPINE CLINICAL INFORMATION: Cervicalgia COMPARISON: None TECHNIQUE: 6 views of the cervical spine. FINDINGS: There are no prevertebral soft tissue or bony abnormalities demonstrated. No compression fractures or subluxations are identified. Alignment is maintained at the atlanto-axial articulation. The disc spaces are preserved. No endplate changes are seen. The prevertebral soft tissues are normal. The foramina are patent. XR/XR cervical spine 4V IMPRESSION: No significant cervical spine abnormality appreciated.
== END 2020-07-04 11:10 | disposition home or self-care (01) ==
LOC: HO.XRAY 11:09
PROVIDERS: PCP Physician Assistant; Visit Provider Physician Assistant
DX: M54.2 Cervicalgia (principal)
CPT/HCPCS: 72050

== ENCOUNTER 2020-08-17 22:18 | Emergency (ER) | payer OTHER, SELFPAY ==
--- NOTE | ~2020-08-17 | XR_ITS ---
EXAMINATION: XR CHEST CLINICAL INFORMATION: Dyspnea and Covid COMPARISON: 09/07/2018 TECHNIQUE: Frontal view of the chest was obtained. FINDINGS: No significant abnormality is noted involving the heart, lungs, mediastinum, bony thorax or soft tissues. The previously seen increased bronchial markings centrally have resolved. XR/XR chest 1V IMPRESSION: No acute intrathoracic disease.
[2020-08-17 22:36] VITALS: BP 147/83; PULSE 90; RESP 18; TEMP 37.6; O2SAT 97; BMI 35.2
--- NOTE | 2020-08-17 22:41 | ECG_ITS ---
Test Reason : CHEST PAIN Blood Pressure : / mmHG Vent. Rate : 074 BPM Atrial Rate : 074 BPM P-R Int : 152 ms QRS Dur : 100 ms QT Int : 372 ms P-R-T Axes : 051 014 037 degrees QTc Int : 412 ms Normal sinus rhythm Nonspecific T wave abnormality Borderline ECG No previous ECGs available Referred By: Generic ED Physician Electronically Signed By:JESSICA HANDY
[2020-08-17 23:24] VITALS: BP 142/78; PULSE 77; RESP 18; TEMP 37.6; O2SAT 97
--- NOTE | 2020-08-17 23:26 | PC.NURSE ---
report received. care assumed at 11 pm. pt alert and oriented. skin wpd. clear speech. rr even and unlabored. +covid since this . Presented ed for sob and chest pain. chest xray and ekg done. awaiting for md disp.
--- NOTE | 2020-08-18 | ED.SOB ---
HPI - SOB/Dyspnea General Chief Complaint: Dyspnea Stated Complaint: Chest pain Time Seen by Provider: 08/17/20 23:58 Source: patient Mode of arrival: ambulatory History of Present Illness HPI Narrative: This is a 20-year-old male who presents with chest pain and shortness of breath for 3 days and was recently diagnosed as COVID-19 positive. Otherwise, he denies any fevers, chills, nausea, vomiting, or GI symptoms. Related Data Previous Rx's Medication Instructions Recorded benztropine 1 mg PO RQ4H PRN #30 tab 05/30/20 cholecalciferol (vitamin D3) 125 mcg PO DAILY #30 tab 05/30/20 haloperidol 10 mg PO BID #60 tab 05/30/20 lamotrigine 100 mg PO BID #60 tab 05/30/20 lithium carbonate 600 mg PO TID #180 cap 05/30/20 olanzapine 1 tab PO BEDTIME #30 tab 05/30/20 oxcarbazepine 900 mg PO BID #180 tab 05/30/20 naproxen 500 mg tablet 500 mg PO BID 10 Days #20 tab 07/03/20 Allergies Allergy/AdvReac Type Severity Reaction Status Date / Time fluoxetine AdvReac Severe giuliana Verified 08/17/20 22:36 chlorpromazine AdvReac Intermediate sleep Verified 08/17/20 22:36 [From Thorazine] walking Review of Systems Review of Systems: Pertinent positives and negatives as stated in HPI 10 point review of systems is otherwise negative. [facility] Past Medical History Source: nursing notes reviewed Medical History Anxiety Bipolar 1 disorder with moderate giuliana Depression No known health problems Social History Social History Household Members: Family Housing: House Alcohol intake: never Smoking Status: Never smoker Tobacco Type: Cigarette Second Hand Smoke Exposure: No Use of substances other than those prescribed or required for medical reasons: No Advance Directives: No Advance Directives Information Provided: No service: No Sexual orientation: Straight/Heterosexual Physical Exam Vital Signs: Vital Signs: Last Vital Signs Temp 99.7 F 08/17/20 23:24 Pulse 77 08/17/20 23:24 Resp 18 08/17/20 23:24 BP 142/78 H 03/27/21 23:24 Pulse Ox 97 08/17/20 23:24 Body Mass Index 35.2 VITAL SIGNS: Reviewed. GENERAL: Well developed, well nourished, in no acute distress. HEAD: Normocephalic/atraumatic NOSE: Nares patent bilateral OROPHARYNX: no oral lesions noted, posterior pharynx clear NECK: Supple, no adenopathy LUNGS: Normal breath sounds. No adventitious sounds or accessory muscle use. SpO2<97> CARDIOVASCULAR: Regular rate and rhythm without noted murmurs, ABDOMEN: Soft, non-tender, non-distended with bowel sounds. NEUROLOGIC: Alert and oriented x 4. Course Course Course Narrative: This is a 20-year-old male who presents with chest pain and shortness of breath and review of all investigations is negative for any acute findings to suggest cardiac or PE etiology. Chest x-ray is also negative for any acute findings to suggest pneumonia. Patient reports he did get some mild relief after taking the GI cocktail. All results and findings were discussed with him at bedside and he is discharged in stable condition without evidence of tachypnea, hypoxia. MDM - SOB/Dyspnea Lab Data Labs: Lab Results 08/18/20 08/18/20 Range/Units 00:36 00:36 D-Dimer < 200 NG/ML Lipase 21 (8-78) U/L ECG Data Attestation: I personally reviewed and interpreted this ECG as follows: Prior ECG tracings: available for review (09/16/2018 no acute changes on comparison) Interpretation: Normal sinus rhythm, HR-74, no evidence of acute ischemia, PA/QRS/QTC are within normal limits. Discharge Plan Discharge Clinical Impression: SARS-CoV-2 positive, Atypical chest pain Patient Disposition: Home, Self-Care Instructions: COVID-19 (Coronavirus Disease 2019) (ED), Shortness of Breath (ED) Additional Instructions: 1. Please resume all home medications as prescribed. 2. Tylenol 1000 mg, orally, every 6 hours as needed for discomfort. Do not exceed 4000 mg within 24 hours. 3. Please follow-up with your primary care provider in next 2-3 days for re-evaluation. 4. You must continue to follow state [facility] guidelines regarding COVID-19 positive and remain self quarantine. Do not hesitate to return to the emergency department should you develop any acute worsening of symptoms. Prescriptions: No Action haloperidol 5 mg Tablet 10 mg PO BID Qty: 60 RF: 0 oxcarbazepine 300 mg Tablet 900 mg PO BID Qty: 180 RF: 0 lithium carbonate 300 mg Capsule 600 mg PO TID Qty: 180 RF: 0 olanzapine 5 mg tablet 1 tab PO BEDTIME Qty: 30 RF: 0 benztropine 1 mg Tablet 1 mg PO RQ4H PRN (Reason: Extrapyramidal Effects) Qty: 30 RF: 0 lamotrigine 100 mg Tablet 100 mg PO BID Qty: 60 RF: 0 cholecalciferol (vitamin D3) 25 mcg (1,000 unit) Tablet 125 mcg PO DAILY Qty: 30 RF: 0 naproxen 500 mg tablet 500 mg PO BID 10 Days Qty: 20 RF: 0 Referrals: Brian Collins PA-C [Primary Care Provider] - 2 days (Re-evaluation after seen in the emergency department for shortness of breath and known to be COVID-19 positive. D-dimer and chest x-ray were negative and no acute findings on EKG.)
[2020-08-18] MEDS: Lidocaine HCl Viscous 2 % 15 ML SOLUTION 10 ML MUCOUS MEM (00:26)
[2020-08-18] MEDS: Magnesium Hydrox/Alum Hydrox 30 ML ORAL.SUSP PO (00:26)
--- NOTE | 2020-08-18 00:28 | PC.NURSE ---
medicated per emar.
[2020-08-18 01:00] LABS: D Dimer < 200 NG/ML
[2020-08-18 01:02] LABS: Lipase 21 U/L (8-78)
== END 2020-08-18 01:32 | disposition home or self-care (01) ==
PROVIDERS: Emergency Provider Student in an Organized Health Care Education/Training Program; PCP Physician Assistant
DX: R07.89 Other chest pain (principal); U07.1 COVID-19; F41.9 Anxiety disorder, unspecified; F17.210 Nicotine dependence, cigarettes, uncomplicated; Z79.899 Other long term (current) drug therapy
CPT/HCPCS: 36415; 71045; 83690; 85379; 93005; 99283; 99284

== ENCOUNTER 2021-01-27 14:53 | Emergency (ER) | payer OTHER, SELFPAY ==
--- NOTE | 2021-01-27 15:00 | ED.PSYCH ---
HPI - Psych General Chief Complaint: Psychiatric Symptoms Stated Complaint: CRISIS Time Seen by Provider: 01/27/21 14:59 Source: patient Mode of arrival: ambulatory Limitations: no limitations History of Present Illness MD complaint: anxiety and hallucinations Onset (ago): day(s) Duration: constant History of same: Yes Relieving factors: none Exacerbating factors: medication Context: not taking psychiatric medications (may have cut down meds) Associated psychiatric symptoms: racing thoughts and delusions Associated symptoms: denies other symptoms Treatments prior to arrival: none Related Data Home Medications Medication Instructions Recorded Confirmed lithium carbonate 300 mg capsule 300 mg PO QPM 01/27/21 01/27/21 lithium carbonate 300 mg capsule 600 mg PO BID 01/27/21 01/27/21 oxcarbazepine 300 mg tablet 750 mg PO BID 01/27/21 01/27/21 Previous Rx's Medication Instructions Recorded cholecalciferol (vitamin D3) 25 125 mcg PO DAILY #30 tab 05/30/20 mcg (1,000 unit) tablet lamotrigine 100 mg tablet 100 mg PO BID #60 tab 05/30/20 naproxen 500 mg tablet 500 mg PO BID PRN 10 Days #20 tab 11/13/20 Allergies Allergy/AdvReac Type Severity Reaction Status Date / Time fluoxetine AdvReac Severe giuliana Verified 11/13/20 14:20 chlorpromazine AdvReac Intermediate sleep Verified 11/13/20 14:20 [From Thorazine] walking Review of Systems Review of Systems: ROS unable to be obtained due to poor cooperation PMFSH Past Medical History Attestation statement: The following information was validated with the patient. Medical History Anxiety Bipolar 1 disorder with moderate giuliana Depression No known health problems Family History Family History Mother Alcohol abuse Mental problem Father Alcohol abuse Mental problem Melanoma Social History Social History Household Members: Family Household Members Other:: pt, brother and mother Housing: House Do you presently have visiting nurse or other home services: Yes Alcohol intake: current Patient Tobacco Use Status: Never used Tobacco e-Cigarette/Vaping Use: Never Used Second Hand Smoke Exposure: Yes Advance Directives: No Advance Directives Information Provided: No service: No Current occupational status: disabled Sexual orientation: Straight/Heterosexual Physical Exam Vital Signs: Vital Signs: Last Vital Signs Temp 99.9 F 01/27/21 15:26 Pulse 102 H 01/27/21 15:26 Resp 16 01/27/21 15:26 Pulse Ox 99 01/27/21 15:26 Body Mass Index 26.0 Appearance: Alert. Oriented X3. No acute distress. Anxious tearful Eyes: Pupils equal, round and reactive to light. ENT: Pharynx normal. Neck: Normal inspection. Neck supple. CVS: Normal heart rate and rhythm. Pulses normal. Respiratory: No respiratory distress. Breath sounds normal. Abdomen: Soft and nontender. Skin: Skin warm and dry. Normal skin color. Normal skin turgor. Extremities: No lower extremity edema. No calf ttp Neuro: Oriented X 3. No motor deficit. No sensory deficit. CN 2-12 intact Psych: anxious, tearful then agitated Course Course Course Narrative: signed out pending input from Dg MDM - Psych MDM Narrative Medical decision making narrative: 20 yo male with hx of bipolar here with c/o delusions, cutting down medications at home at this time will obtain labs, refer to [facility] per their recommendations Lab Data Result diagrams: 01/27/21 15:59 01/27/21 15:59 Labs: Lab Results 01/27/21 01/27/21 01/27/21 Range/Units 15:46 15:59 15:59 WBC 11.1 H (4.8-10.8) X10*3/uL RBC 5.27 (4.60-5.80) X10*6/uL Hgb 15.0 (14.0-18.0) g/dl Hct 44.7 (42-52) % MCV 84.8 (80-98) fL MCH 28.5 (27.0-33.0) pg MCHC 33.6 (31.0-36.0) g/dl RDW 12.8 (11.0-16.0) % Plt Count 259 (160-400) X10*3/uL MPV 11.6 (9.4-12.4) fL Immature Gran % (Auto) 0.3 (0.0-0.4) % Neut % (Auto) 74.1 H (45-73) % Lymph % (Auto) 16.2 L (20-40) % [place] % (Auto) 8.2 (2-11) % Eos % (Auto) 0.4 (0-4) % Baso % (Auto) 0.8 (0-2) % Lymph # (Auto) 1.8 (1.2-4.9) X10*3/uL [place] # (Auto) 0.9 (0.1-1.2) X10*3/uL Eos # (Auto) 0.1 (0.0-0.4) X10*3/uL Baso # (Auto) 0.1 (0.0-0.2) X10*3/uL Abs Immat Gran (auto) 0.03 (0.00-0.03) X10*3/uL Absolute Neuts (auto) 8.2 (2.0-8.3) X10*3/uL Absolute Nucleated RBC 0.000 (0.0-0.012) X10*3/uL Nucleated RBC % (auto) 0.0 (0.0-0.2) /100WBC [place] 0.39 L (0.60-1.20) mmol/L COVID-19 ([facility]EL[facility]IN) Negative (Negative) COVID-19 Clin Com See Note Discharge Plan Discharge Clinical Impression: Bipolar disorder Qualifiers: Active/Remission status: remission status unspecified Qualified Code(s): F31.9 - Bipolar disorder, unspecified Prescriptions: No Action lamotrigine 100 mg Tablet 100 mg PO BID Qty: 60 RF: 0 cholecalciferol (vitamin D3) 25 mcg (1,000 unit) Tablet 125 mcg PO DAILY Qty: 30 RF: 0 lithium carbonate 300 mg capsule 600 mg PO BID RF: 0 lithium carbonate 300 mg Capsule 300 mg PO QPM RF: 0 oxcarbazepine 300 mg tablet 750 mg PO BID RF: 0 naproxen 500 mg tablet 500 mg PO BID PRN (Reason: pain) 10 Days Qty: 20 RF: 0
[2021-01-27 15:26] VITALS: PULSE 102; RESP 16; TEMP 37.7; O2SAT 99; BMI 26.0
[2021-01-27 16:03] LABS: MANUAL DIFF FLAG NO
[2021-01-27 16:05] LABS: Basophils Absolute Auto 0.1 X10*3/uL (0.0-0.2); Basophils Percent Auto 0.8 % (0-2); Eosinophils Absolute Auto 0.1 X10*3/uL (0.0-0.4); Eosinophils Percent Auto 0.4 % (0-4); Hematocrit 44.7 % (42-52); Imm Gran Abs Auto 0.03 X10*3/uL (0.00-0.03); Imm Gran Pct Auto 0.3 % (0.0-0.4); Lymphocytes Absolute Auto 1.8 X10*3/uL (1.2-4.9); Lymphocytes Percent Auto 16.2 % (20-40); Mean Corpuscular HGB Conc 33.6 g/dl (31.0-36.0); Mean Corpuscular Hemoglobin 28.5 pg (27.0-33.0); Mean Corpuscular Volume 84.8 fL (80-98); Mean Platelet Volume 11.6 fL (9.4-12.4); Monocytes Absolute Auto 0.9 X10*3/uL (0.1-1.2); Monocytes Percent Auto 8.2 % (2-11); Neutrophils Absolute Auto 8.2 X10*3/uL (2.0-8.3); Neutrophils Percent Auto 74.1 % (45-73); Platelet Count 259 X10*3/uL (160-400); Red Blood Count 5.27 X10*6/uL (4.60-5.80); Red Cell Distribution Width 12.8 % (11.0-16.0); White Blood Count 11.1 X10*3/uL (4.8-10.8)
[2021-01-27 16:20] LABS: Lithium 0.39 mmol/L (0.60-1.20)
[2021-01-27 16:20] LABS: COVID-19 Test Negative (Negative); IDNOW Serial# 9DD0AD1C
[2021-01-27 16:24] LABS: Ethanol < 10 mg/dL
[2021-01-27 16:26] LABS: Anion Gap 15 (12-20); Blood Urea Nitrogen 11 mg/dL (9-16); Calcium 10.1 mg/dL (8.4-10.2); Carbon Dioxide 20 mmol/L (22-29); Chloride 108 mmol/L (96-108); Creatinine Clr Calc Pharmacy 128.3; Estimated Glomerular Filt Rate > 60; Glucose Random 171 mg/dL (60-115); Potassium 3.8 mmol/L (3.3-5.1); Sodium 139 mmol/L (135-145)
[2021-01-27 16:28] LABS: Alanine Aminotransferase 17 U/L (0-40); Alkaline Phosphatase 58 U/L (39-117); Aspartate Amino Transferase 19 U/L (5-37); Bilirubin Direct 0.3 mg/dL (0.0-0.5); Bilirubin Total 0.6 mg/dL (0.0-1.0); Total Protein 7.5 g/dL (6.5-8.0)
[2021-01-27] MEDS: Acetaminophen 325 MG TABLET 650 MG PO (17:17)
[2021-01-27 17:19] LABS: Amphetamine Screen Urine Not Detected (Not Detect); Barbiturates, Urine Not Detected (Not Detect); Benzodiazepines Screen Urine Not Detected (Not Detect); Cannabinoid Screen Urine Not Detected (Not Detect); Cocaine Screen Urine Not Detected (Not Detect); Fentanyl, urine Not Detected (Not Detect); Opiate Screen Urine Not Detected (Not Detect); Phencyclidine Screen Urine Not Detected (Not Detect)
== END 2021-01-27 20:23 | disposition home or self-care (01) ==
PROVIDERS: Emergency Provider Emergency Medicine; PCP Physician Assistant
DX: F31.9 Bipolar disorder, unspecified (principal); F41.9 Anxiety disorder, unspecified; Z20.822 Contact with and (suspected) exposure to COVID-19; Z79.899 Other long term (current) drug therapy
CPT/HCPCS: 36415; 80048; 80076; 80178; 80307; 82077; 85025; 87635; 99284

== ENCOUNTER 2021-01-29 08:45 | Inpatient (IN) | payer OTHER, SELFPAY ==
--- NOTE | ~2021-01-29 | XR_ITS ---
EXAMINATION: XR WRIST, RIGHT CLINICAL INFORMATION: Fall. Pain. COMPARISON: None TECHNIQUE: Four views of the right wrist. FINDINGS: The bones and soft tissues are normal. No fracture. Alignment is anatomic with normal joint spaces. No erosions or abnormal soft tissue calcifications. XR/XR wrist RT min 3V IMPRESSION: Normal right wrist.
[2021-01-29 09:36] VITALS: BP 159/87; PULSE 96; RESP 16; TEMP 37.6; O2SAT 96; BMI 25.6
--- NOTE | 2021-01-29 09:45 | ED_ITS ---
HPI - Psych General Chief Complaint: Psychiatric Symptoms Stated Complaint: manic, hallucinating Time Seen by Provider: 01/29/21 09:43 Source: patient Mode of arrival: ambulatory Limitations: no limitations History of Present Illness HPI Narrative: 20 y/o male with history of bipolar disorder, last admitted in May for giuliana with SI/HI, agitation and psychosis who presents back to the ER for psych evaluation. He reportedly tried to go right to [facility] and knocked on the door. He was seen here two days ago for similar presentation. He was seen by N and discharged home. He presents back today stating he is too smart to be out in the world. He is talking about going to space and time travel.He is describing seeing cars driving in the air. He admits to not taking his medications last night. He is not suicidal or homocidal. Denies drug or alcohol use. MD complaint: anxiety, hallucinations and other Onset (ago): day(s) Duration: constant History of same: Yes Relieving factors: medication and therapy Exacerbating factors: none Context: not taking psychiatric medications Associated psychiatric symptoms: racing thoughts, visual hallucinations and delusions Associated symptoms: insomnia (minimal sleep in 10 days ) Treatments prior to arrival: none Related Data Home Medications Medication Instructions Recorded Confirmed lithium carbonate 300 mg capsule 300 mg PO DAILY@1200 01/27/21 01/29/21 lithium carbonate 300 mg capsule 600 mg PO BID 01/27/21 01/29/21 oxcarbazepine 300 mg tablet 750 mg PO BID 01/27/21 01/29/21 omega-3 fatty acids-fish oil 360 2 cap PO DAILY 01/29/21 01/29/21 mg-1,200 mg capsule (Fish Oil) trazodone 50 mg tablet 50 mg PO BEDTIME PRN 01/29/21 01/29/21 Previous Rx's Medication Instructions Recorded cholecalciferol (vitamin D3) 25 125 mcg PO DAILY #30 tab 05/30/20 mcg (1,000 unit) tablet lamotrigine 100 mg tablet 100 mg PO BID #60 tab 05/30/20 Allergies Allergy/AdvReac Type Severity Reaction Status Date / Time fluoxetine AdvReac Severe giuliana Verified 11/13/20 14:20 chlorpromazine AdvReac Intermediate sleep Verified 11/13/20 14:20 [From Thorazine] walking Review of Systems Constitutional: Constitutional: Denies chills, Denies fever(s) and Denies headache(s) Eyes: Eyes: Reports no additional eye complaints ENT: Reports Normal hearing present, Denies dizziness, Denies headache(s) and Denies sore throat Cardiovascular: Cardiovascular: Denies chest pain, Denies syncope, Denies rapid heart rate and Denies dyspnea Respiratory: Respiratory: Denies cough and Denies dyspnea Gastrointestinal: Gastrointestinal: Denies nausea and Denies vomiting Musculoskeletal: Musculoskeletal: Denies myalgias Integumentary/Breasts: Skin/Breast: Denies rash Neurologic: Reports Normal hearing present, Reports behavioral changes, Denies dizziness, Denies syncope, Denies headache(s), Denies convulsions and Denies seizure-like activity Psychiatric: Psychiatric: Reports abnormal sleep pattern, Reports anxiety, Reports behavioral changes, Reports depression, Reports irritability, Reports mood swings, Reports paranoia and Reports visual hallucinations PMFSH Past Medical History Attestation statement: The following information was validated with the patient. Medical History Anxiety Bipolar 1 disorder with moderate giuliana Depression No known health problems Family History Family History Mother Alcohol abuse Mental problem Father Alcohol abuse Mental problem Melanoma Social History Social History Household Members: Family Household Members Other:: pt, brother and mother Housing: House Do you presently have visiting nurse or other home services: Yes Alcohol intake: current Patient Tobacco Use Status: Never used Tobacco e-Cigarette/Vaping Use: Never Used Second Hand Smoke Exposure: Yes Advance Directives: No Advance Directives Information Provided: No Healthcare Proxy: No Guardian: No service: No Current occupational status: disabled Sexual orientation: Straight/Heterosexual Physical Exam Vital Signs: Vital Signs: Last Vital Signs Temp 99.7 F 01/29/21 09:36 Pulse 96 01/29/21 09:36 Resp 16 01/29/21 09:36 BP 159/87 H 01/29/21 09:36 Pulse Ox 96 01/29/21 09:36 Body Mass Index 25.6 Const: General: cooperative, healthy appearing, comfortable and no acute distress Nutritional Appearance: average body habitus Or ientation/consciousness: patient oriented x3 Limitations: no limitations HENMT: Head: Yes normal to inspection Ears: hearing grossly normal bilaterally and external ears normal General nose exam: Normal external nose present and Normal nares present Face and sinus: Yes normal facial exam and Yes face symmetric Mouth: Normal oral and palatal mucosa present, lip normal and tongue normal Eyes: General: appearance normal, both eyes and all related structures Neck: Neck: Yes normal visual inspection Chest: Chest palpation & inspection: normal inspection of the chest Resp: Effort & Inspection: normal respiratory effort and able to speak in complete sentences Auscultation: clear to auscultation bilaterally Cardio: Rate: regular rate Rhythm: regular rhythm Heart sounds: S1 normal heart sound present and S2 normal heart sound present GI: Inspection: Yes normal to inspection Palpation (GI): Soft to palpation, not firm and nontender Auscultation: normal bowel sounds Back/Spine/Pelvis: Cervical Spine: normal cervical lordosis Thoracic/Lumbar Spine: thoracic and lumbar spine normal to inspection Skin: General skin exam: no rashes or lesions noted Neuro: General: patient oriented x3, gait normal, tone normal, moves all extremities and CN's II-XI intact bilaterally Cranial nerves: Yes Normal hearing present Gait exam (Neuro): Normal gait present Extrem: General: Yes normal to inspection, Yes full ROM and Yes no calf tenderness Psych: Appearance: grossly normal and well kempt Mental Status: mental status grossly normal Speech and movement: Normal speech and movement present Affect: Animated affect present and Ecstatic affect present Attitude: cooperative Thought process: Flight of ideas present, Loose association thought process present, Perseverating thought process present and Racing thoughts present Thought content: Paranoid delusions present Insight: Poor insight present (Psych) Judgement: Poor judgement present (Psych) Course Course Course Narrative: 20 y/o male with history of bipolar disorder with manic episodes presents back to the ER with giuliana. He is delusional and grandiose. He is currently calm and cooperative, agreeable to lab workup and N evaluation. Reevaluation(s) Reevaluation #1: Called to the POD as patient's behavior began to escalate, unclear trigger. He picked up a heavy, large piece of furniture and was holding it over his head. He dropped it on the floor behind him. He was pacing and anxious, declining any medication. Security called and he was able to be redirected and calmed down. Did not require medical or physical restraints. He has a history of very explosive and aggressive behavior that is resistent to medications; history of requiring intubation and sedation. BRANCH OFFICE ADMINISTRATOR from Psych has been contacted by Nursing staff. Reevaluation #2: Patient to be admitted to . [facility] Lab Data Result diagrams: 01/29/21 11:05 01/29/21 10:02 Labs: Lab Results 01/29/21 01/29/21 01/29/21 Range/Units 10:02 10:02 10:02 WBC (4.8-10.8) X10*3/uL RBC (4.60-5.80) X10*6/uL Hgb (14.0-18.0) g/dl Hct (42-52) % MCV (80-98) fL MCH (27.0-33.0) pg MCHC (31.0-36.0) g/dl RDW (11.0-16.0) % Plt Count (160-400) X10*3/uL MPV (9.4-12.4) fL Immature Gran % (Auto) (0.0-0.4) % Neut % (Auto) (45-73) % Lymph % (Auto) (20-40) % [place] % (Auto) (2-11) % Eos % (Auto) (0-4) % Baso % (Auto) (0-2) % Lymph # (Auto) (1.2-4.9) X10*3/uL [place] # (Auto) (0.1-1.2) X10*3/uL Eos # (Auto) (0.0-0.4) X10*3/uL Baso # (Auto) (0.0-0.2) X10*3/uL Abs Immat Gran (auto) (0.00-0.03) X10*3/uL Absolute Neuts (auto) (2.0-8.3) X10*3/uL Absolute Nucleated RBC (0.0-0.012) X10*3/uL Nucleated RBC % (auto) (0.0-0.2) /100WBC Sodium 140 (135-145) mmol/L Potassium 3.8 (3.3-5.1) mmol/L Chloride 109 H (96-108) mmol/L Carbon Dioxide 22 (22-29) mmol/L Anion Gap 13 (12-20) BUN 15 (9-16) mg/dL Creatinine 1.00 (0.5-1.4) mg/dL Estim Creat Clear Calc 130.9 Estimated GFR > 60 Random Glucose 120 H (60-115) mg/dL Calcium 10.0 (8.4-10.2) mg/dL Magnesium 2.2 (1.6-2.6) mg/dL Total Bilirubin 0.6 (0.0-1.0) mg/dL Direct Bilirubin 0.2 (0.0-0.5) mg/dL AST 25 (5-37) U/L ALT 22 (0-40) U/L Alkaline Phosphatase 64 (39-117) U/L Total Protein 7.7 (6.5-8.0) g/dL Albumin 5.0 (3.5-5.0) g/dL Urine Color Urine Appearance Urine pH (5.0-8.0) Ur Specific [place] (1.005-1.025) Urine Protein (NEG-TRACE) MG/DL Urine Glucose (UA) (NEG) MG/DL Urine Ketones (NEG) MG/DL Urine Blood (NEG) Urine Nitrite (NEG) Ur Leukocyte Esterase (NEG) Urine Opiates Screen (Not Detect) Urine Fentanyl Screen (Not Detect) Ur Barbiturates Screen (Not Detect) Ur Phencyclidine Scrn (Not Detect) Ur Amphetamines Screen (Not Detect) U Benzodiazepines Scrn (Not Detect) [place] 0.34 L (0.60-1.20) mmol/L Urine Cocaine Screen (Not Detect) U Marijuana (THC) Screen (Not Detect) Ethyl Alcohol mg/dL COVID-19 (KELVIN) Negative (Negative) COVID-19 Clin Com See Note 01/29/21 01/29/21 01/29/21 Range/Units 10:02 11:05 13:58 WBC 13.1 H (4.8-10.8) X10*3/uL RBC 5.05 (4.60-5.80) X10*6/uL Hgb 14.4 (14.0-18.0) g/dl Hct 43.3 (42-52) % MCV 85.7 (80-98) fL MCH 28.5 (27.0-33.0) pg MCHC 33.3 (31.0-36.0) g/dl RDW 13.2 (11.0-16.0) % Plt Count 239 (160-400) X10*3/uL MPV 11.6 (9.4-12.4) fL Immature Gran % (Auto) 0.3 (0.0-0.4) % Neut % (Auto) 73.5 H (45-73) % Lymph % (Auto) 14.5 L (20-40) % [place] % (Auto) 10.3 (2-11) % Eos % (Auto) 0.8 (0-4) % Baso % (Auto) 0.6 (0-2) % Lymph # (Auto) 1.9 (1.2-4.9) X10*3/uL [place] # (Auto) 1.4 H (0.1-1.2) X10*3/uL Eos # (Auto) 0.1 (0.0-0.4) X10*3/uL Baso # (Auto) 0.1 (0.0-0.2) X10*3/uL Abs Immat Gran (auto) 0.04 H (0.00-0.03) X10*3/uL Absolute Neuts (auto) 9.6 H (2.0-8.3) X10*3/uL Absolute Nucleated RBC 0.000 (0.0-0.012) X10*3/uL Nucleated RBC % (auto) 0.0 (0.0-0.2) /100WBC Sodium (135-145) mmol/L Potassium (3.3-5.1) mmol/L Chloride (96-108) mmol/L Carbon Dioxide (22-29) mmol/L Anion Gap (12-20) BUN (9-16) mg/dL Creatinine (0.5-1.4) mg/dL Estim Creat Clear Calc Estimated GFR Random Glucose (60-115) mg/dL Calcium (8.4-10.2) mg/dL Magnesium (1.6-2.6) mg/dL Total Bilirubin (0.0-1.0) mg/dL Direct Bilirubin (0.0-0.5) mg/dL AST (5-37) U/L ALT (0-40) U/L Alkaline Phosphatase (39-117) U/L Total Protein (6.5-8.0) g/dL Albumin (3.5-5.0) g/dL Urine Color YELLOW Urine Appearance CLEAR Urine pH 6.0 (5.0-8.0) Ur Specific [place] 1.015 (1.005-1.025) Urine Protein NEG (NEG-TRACE) MG/DL Urine Glucose (UA) NEG (NEG) MG/DL Urine Ketones NEG (NEG) MG/DL Urine Blood NEG (NEG) Urine Nitrite NEG (NEG) Ur Leukocyte Esterase NEG (NEG) Urine Opiates Screen (Not Detect) Urine Fentanyl Screen (Not Detect) Ur Barbiturates Screen (Not Detect) Ur Phencyclidine Scrn (Not Detect) Ur Amphetamines Screen (Not Detect) U Benzodiazepines Scrn (Not Detect) [place] (0.60-1.20) mmol/L Urine Cocaine Screen (Not Detect) U Marijuana (THC) Screen (Not Detect) Ethyl Alcohol < 10 mg/dL COVID-19 (KELVIN) (Negative) COVID-19 Clin Com 01/29/21 Range/Units 13:58 WBC (4.8-10.8) X10*3/uL RBC (4.60-5.80) X10*6/uL Hgb (14.0-18.0) g/dl Hct (42-52) % MCV (80-98) fL MCH (27.0-33.0) pg MCHC (31.0-36.0) g/dl RDW (11.0-16.0) % Plt Count (160-400) X10*3/uL MPV (9.4-12.4) fL Immature Gran % (Auto) (0.0-0.4) % Neut % (Auto) (45-73) % Lymph % (Auto) (20-40) % [place] % (Auto) (2-11) % Eos % (Auto) (0-4) % Baso % (Auto) (0-2) % Lymph # (Auto) (1.2-4.9) X10*3/uL [place] # (Auto) (0.1-1.2) X10*3/uL Eos # (Auto) (0.0-0.4) X10*3/uL Baso # (Auto) (0.0-0.2) X10*3/uL Abs Immat Gran (auto) (0.00-0.03) X10*3/uL Absolute Neuts (auto) (2.0-8.3) X10*3/uL Absolute Nucleated RBC (0.0-0.012) X10*3/uL Nucleated RBC % (auto) (0.0-0.2) /100WBC Sodium (135-145) mmol/L Potassium (3.3-5.1) mmol/L Chloride (96-108) mmol/L Carbon Dioxide (22-29) mmol/L Anion Gap (12-20) BUN (9-16) mg/dL Creatinine (0.5-1.4) mg/dL Estim Creat Clear Calc Estimated GFR Random Glucose (60-115) mg/dL Calcium (8.4-10.2) mg/dL Magnesium (1.6-2.6) mg/dL Total Bilirubin (0.0-1.0) mg/dL Direct Bilirubin (0.0-0.5) mg/dL AST (5-37) U/L ALT (0-40) U/L Alkaline Phosphatase (39-117) U/L Total Protein (6.5-8.0) g/dL Albumin (3.5-5.0) g/dL Urine Color Urine Appearance Urine pH (5.0-8.0) Ur Specific [place] (1.005-1.025) Urine Protein (NEG-TRACE) MG/DL Urine Glucose (UA) (NEG) MG/DL Urine Ketones (NEG) MG/DL Urine Blood (NEG) Urine Nitrite (NEG) Ur Leukocyte Esterase (NEG) Urine Opiates Screen Not Detected (Not Detect) Urine Fentanyl Screen Not Detected (Not Detect) Ur Barbiturates Screen Not Detected (Not Detect) Ur Phencyclidine Scrn Not Detected (Not Detect) Ur Amphetamines Screen Not Detected (Not Detect) U Benzodiazepines Scrn Not Detected (Not Detect) [place] (0.60-1.20) mmol/L Urine Cocaine Screen Not Detected (Not Detect) U Marijuana (THC) Screen Not Detected (Not Detect) Ethyl Alcohol mg/dL COVID-19 (KELVIN) (Negative) COVID-19 Clin Com Discharge Plan Discharge Clinical Impression: Bipolar disorder Patient Disposition: Admitted As Inpatient Prescriptions: No Action lamotrigine 100 mg Tablet 100 mg PO BID Qty: 60 RF: 0 cholecalciferol (vitamin D3) 25 mcg (1,000 unit) Tablet 125 mcg PO DAILY Qty: 30 RF: 0 lithium carbonate 300 mg capsule 600 mg PO BID RF: 0 lithium carbonate 300 mg Capsule 300 mg PO DAILY@1200 RF: 0 oxcarbazepine 300 mg tablet 750 mg PO BID RF: 0 trazodone 50 mg tablet 50 mg PO BEDTIME PRN (Reason: Insomnia) RF: 0 omega-3 fatty acids-fish oil [Fish Oil] 360-1,200 mg capsule 2 cap PO DAILY RF: 0
--- NOTE | 2021-01-29 10:11 | PC.NURSE ---
clients mom wanted us to document psychiatrists number for contact: dr. Barksdale [phone]
[2021-01-29 10:29] LABS: Ethanol < 10 mg/dL
[2021-01-29 10:35] LABS: Alanine Aminotransferase 22 U/L (0-40); Alkaline Phosphatase 64 U/L (39-117); Anion Gap 13 (12-20); Aspartate Amino Transferase 25 U/L (5-37); Bilirubin Direct 0.2 mg/dL (0.0-0.5); Bilirubin Total 0.6 mg/dL (0.0-1.0); Blood Urea Nitrogen 15 mg/dL (9-16); Carbon Dioxide 22 mmol/L (22-29); Chloride 109 mmol/L (96-108); Creatinine Clr Calc Pharmacy 130.9; Estimated Glomerular Filt Rate > 60; Glucose Random 120 mg/dL (60-115); Magnesium 2.2 mg/dL (1.6-2.6); Potassium 3.8 mmol/L (3.3-5.1); Sodium 140 mmol/L (135-145); Total Protein 7.7 g/dL (6.5-8.0)
[2021-01-29 10:40] LABS: Lithium 0.34 mmol/L (0.60-1.20)
[2021-01-29 10:43] LABS: COVID-19 Test Negative (Negative); IDNOW Serial# 9DD0AD1C
[2021-01-29 11:11] LABS: Basophils Absolute Auto 0.1 X10*3/uL (0.0-0.2); Basophils Percent Auto 0.6 % (0-2); Eosinophils Absolute Auto 0.1 X10*3/uL (0.0-0.4); Eosinophils Percent Auto 0.8 % (0-4); Hematocrit 43.3 % (42-52); Hemoglobin 14.4 g/dl (14.0-18.0); Imm Gran Abs Auto 0.04 X10*3/uL (0.00-0.03); Imm Gran Pct Auto 0.3 % (0.0-0.4); Lymphocytes Absolute Auto 1.9 X10*3/uL (1.2-4.9); Lymphocytes Percent Auto 14.5 % (20-40); Mean Corpuscular HGB Conc 33.3 g/dl (31.0-36.0); Mean Corpuscular Hemoglobin 28.5 pg (27.0-33.0); Mean Corpuscular Volume 85.7 fL (80-98); Mean Platelet Volume 11.6 fL (9.4-12.4); Monocytes Absolute Auto 1.4 X10*3/uL (0.1-1.2); Monocytes Percent Auto 10.3 % (2-11); Neutrophils Absolute Auto 9.6 X10*3/uL (2.0-8.3); Neutrophils Percent Auto 73.5 % (45-73); Platelet Count 239 X10*3/uL (160-400); Red Blood Count 5.05 X10*6/uL (4.60-5.80); Red Cell Distribution Width 13.2 % (11.0-16.0); White Blood Count 13.1 X10*3/uL (4.8-10.8)
--- NOTE | 2021-01-29 11:33 | PC.NURSE ---
patient seemingly restless, sat on floor by door, redirected, started exercising in room, periodically in questionably safe ways (standing on bed frame) given earphones, redirectable
--- NOTE | 2021-01-29 11:41 | PHA.MEDREC ---
Pharmacy Consult ? Medication Reconciliation Pharmacy has completed the medication reconciliation. There are no remarkable issues for provider's attention. Beatrice Hopper, AnnitaD
--- NOTE | 2021-01-29 11:53 | PC.NURSE ---
client took off anca top and began whipping blanket around in air which patient had been redirected regarding this in am. patiwnt asked to stop and put top on, xclient refused and threw earphones, slightly damaging earphones. patient then went back to sit on floor near door and demanded a shirt which client was previously informed he couldnt have a shirt presently. patient moved away from door but still remains noncompliant.
--- NOTE | 2021-01-29 12:06 | MHC.CARE ---
Patient evaluated by the CARE Team, he will require inpatient psychiatric treatment. Providers updated, written assessment to follow.
--- NOTE | 2021-01-29 12:30 | PC.NURSE ---
patient demanding a shirt and trying to challenge staff no one will move me, i can sit where i want
--- NOTE | 2021-01-29 12:42 | PC.NURSE ---
patient laying on floor in middle of [place]
--- NOTE | 2021-01-29 13:40 | PM.PSYCN ---
History of Present Illness Date of Service: 01/29/2021 Chief Complaint: manic, hallucinating Reason for Consult: Psychopharmacology for giuliana Requesting physician: Gustabo Rivas Discussed with referring provider: No (discussed with team.) Sources of Information: patient interviewed, chart reviewed and crisis/core team assessment reviewed (not available) HPI Narrative: 20 yo male, known to psychiatry service, with a history of Bipolar Disorder, with giuliana, psychosis, found in the out patient psychiatry waiting room early this morning by Melina Badillo RN, [facility] Director of Behavioral Health. Pt had barricaded himself in the room with furniture and was sitting in the corner. He agreed to an emergency consult with Meilna's support. Met with pt to discuss initiating medications prior to crisis evaluation which he was willing to do. Pt eating lunch, welcoming discussion of current issues. Pt reports he is seeing ghosts. He thought he would come to [facility] to explain this and other revelations of wisdom which have been imparted to him to receive guidance as to what to do with this information and to sort it out. Pt reports feeling burdened as he has been given high intelligence and information only to be understood by others with existential power. He is unsure how he should manage this-he reviewed options with peace and with violence. When talking of violence he reported he came in to avoid this option and knew medication would be of assistance. Pt reports recent ER visit where he was sent home. He believes that was an error- I only come when I need to, you all know this. Reports minimal need for sleep, food, fluids and feeling a clarity that he has not felt in some time. He believes that is the reason he was given the revelations. Discussed regime used in his Apr 2020-May 2020 admission-agreeable to beginning with those. [facility] Past Psychiatric History: 4 admissions to Required iv ketamine during one stay due to his giuliana. Shamir Daily is his outpatient psychiatrist Roesndo Bains is his therapist He has been on multiple medications in the past including depakote, abilify, latuda, and [place] Medical Evaluation Reviewed: Yes [place] Level 0.34 WBC 13.1 Personal & Social History: Lives with his mother. Family History is significant for bipolar disorder and alcohol use disorder Denies trauma Review of Systems Reports behavioral changes and Reports confusion Psychiatric: Reports abnormal sleep pattern, Reports anxiety, Reports behavioral changes, Reports change in appetite, Reports confusion, Reports difficulty concentrating, Reports auditory hallucinations, Reports anhedonia, Reports mood swings, Reports paranoia, Reports visual hallucinations, Reports hallucinations and Reports suicidal ideation (denies) [facility] Medical History Anxiety Bipolar 1 disorder with moderate giuliana Depression No known health problems Family History: Family history is significant for bipolar disorder and alcohol use disorder Social History: Lives with his mother Substance History: Toxic Screen negative. ETOH <10 Trauma History: Denies Diagnostics Vital Signs (24Hr): Vital Signs - 24 hr 01/29/21 09:36 Temperature 99.7 F Pulse Rate 96 Respiratory Rate 16 Blood Pressure 159/87 H Pulse Oximetry 96 Body Mass Index 25.6 Labs Results: 01/29/21 11:05 01/29/21 10:02 Labs: Laboratory Results - last 48 hr 01/29/21 01/29/21 01/29/21 10:02 10:02 10:02 WBC RBC Hgb Hct MCV MCH MCHC RDW Plt Count MPV Immature Gran % (Auto) Neut % (Auto) Lymph % (Auto) [place] % (Auto) Eos % (Auto) Baso % (Auto) Lymph # (Auto) [place] # (Auto) Eos # (Auto) Baso # (Auto) Abs Immat Gran (auto) Absolute Neuts (auto) Absolute Nucleated RBC Nucleated RBC % (auto) Sodium 140 Potassium 3.8 Chloride 109 H Carbon Dioxide 22 Anion Gap 13 BUN 15 Creatinine 1.00 Estim Creat Clear Calc 130.9 Estimated GFR > 60 Random Glucose 120 H Calcium 10.0 Magnesium 2.2 Total Bilirubin 0.6 Direct Bilirubin 0.2 AST 25 ALT 22 Alkaline Phosphatase 64 Total Protein 7.7 Albumin 5.0 [place] 0.34 L Ethyl Alcohol COVID-19 ([facility]) Negative COVID-19 Clin Com See Note 01/29/21 01/29/21 10:02 11:05 WBC 13.1 H RBC 5.05 Hgb 14.4 Hct 43.3 MCV 85.7 MCH 28.5 MCHC 33.3 RDW 13.2 Plt Count 239 MPV 11.6 Immature Gran % (Auto) 0.3 Neut % (Auto) 73.5 H Lymph % (Auto) 14.5 L [place] % (Auto) 10.3 Eos % (Auto) 0.8 Baso % (Auto) 0.6 Lymph # (Auto) 1.9 [place] # (Auto) 1.4 H Eos # (Auto) 0.1 Baso # (Auto) 0.1 Abs Immat Gran (auto) 0.04 H Absolute Neuts (auto) 9.6 H Absolute Nucleated RBC 0.000 Nucleated RBC % (auto) 0.0 Sodium Potassium Chloride Carbon Dioxide Anion Gap BUN Creatinine Estim Creat Clear Calc Estimated GFR Random Glucose Calcium Magnesium Total Bilirubin Direct Bilirubin AST ALT Alkaline Phosphatase Total Protein Albumin [place] Ethyl Alcohol < 10 COVID-19 ([facility]) COVID-19 Clin Com Mental Status Exam Mental Status Exam Patient Appearance: Well Grooomed Patient Orientation: Person and Place Level of Consciousness: Awake and Alert Patient Behavior: Talkative, Hyperactive, Cooperative, Anxious, Fearful, Distractible, Good Eye Contact and Impulsive Mood Description: Fearful, Anxious, Labile, Nervous, Apprehensive and Expansive Affect Description: Labile and Expansive Patient Cognition Impaired: Yes Ability to Follow Directions: Good Speech Pattern: Spontaneous Speech, Rambling, Soft-Spoken, Cofabulation, Rapid, Pressured and Excited Memory Description: Remote Impaired and Episodic Impaired Hallucinations: Auditory and Visual Delusions: Paranoid Ideation, Grandiose and Present Perceptual Disturbances: Depersonalization and Derealization Thought Process: Racing, Illogical and Distracted Thought Content: positive for Flight of Ideas, positive for Racing, positive for Circumstantial, positive for Loose Associations and positive for Tangential Depressive Symptoms: Increased Anxiety, Insomnia, Diff. Making Decisions, Difficulty Sleeping and Changes in Appetite Abnormal Motor Activity Signs and Symptoms: Agitation, Hyperactivity and Restlessness Judgement: Fair Medications Medications Current Medications Generic Name Dose Route Start Last Admin Trade Name Freq PRN Reason Stop Dose Admin Lamotrigine 100 mg 01/29/21 21:00 Lamotrigine 100 Mg Tablet PO BID [facility] [place] Carbonate 300 mg 01/30/21 12:00 [place] Carbonate 300 Mg Capsule PO DAILY@1200 [facility] [place] Carbonate 600 mg 01/29/21 21:00 [place] Carbonate 300 Mg Capsule PO BID [facility] Oxcarbazepine 750 mg 01/29/21 21:00 Oxcarbazepine 150 Mg Tablet PO BID [facility] Pharmacy Consult 1 each 01/29/21 09:43 Consult Rx Perform Med Rec MISCELLANE ONCE PRN Consult order Trazodone HCl 50 mg 01/29/21 12:20 Trazodone Hcl 50 Mg Tablet PO BEDTIME PRN Insomnia Vitamin D 125 mcg 01/30/21 09:00 Cholecalciferol (Vitamin D3) 25 Mcg Tablet PO DAILY YANI Allergies Allergies Allergy/AdvReac Type Severity Reaction Status Date / Time fluoxetine AdvReac Severe giuliana Verified 11/13/20 14:20 chlorpromazine AdvReac Intermediate sleep Verified 11/13/20 14:20 [From Thorazine] walking Assessment & Plan Assessment & Plan (1) Bipolar disorder: Qualifiers: Active/Remission status: currently active Current bipolar episode type: manic Current episode severity: severe Psychotic features: with psychotic features Qualified Code(s): F31.2 - Bipolar disorder, current episode manic severe with psychotic features Status: Acute Code(s): F31.9 - Bipolar disorder, unspecified Assessment and Plan: 20 yo male, history of bipolar disorder, returns to [facility] requesting assistance for managment of giuliana with psychosis. Assessment and Plan: Medical clearance in process. Pt will be seen by crisis team to determine level of care. Recommend in pt admission for stabilization of giuliana. Pt has a known history and is requesting admission. [place] level 0.34, WBC 13.1. Toxicology is negative. Alcohol is <10. COVID negative -Continue current regime. -Olanzapine 10 mg bid -Haldol 5 mg q 4 hours prn psychotic/manic agitation. Greater than 50% of the session was spent on counseling and/or coordination of care Patient educated on: medication risk/benefits and therapeutic strategies Informed Consent: does not understand
--- NOTE | 2021-01-29 13:48 | PC.NURSE ---
after provider left patient remained under desk and when approached declined medication
[2021-01-29 14:14] LABS: Appearance Urine CLEAR; Color Urine YELLOW; Glucose Urine UA NEG (NEG); Leukocyte Esterase Urine NEG (NEG); Nitrite Urine NEG (NEG); Specific Gravity - Urine 1.015 (1.005-1.025); Urine Blood NEG (NEG); Urine Ketones NEG (NEG); Urine Protein NEG (NEG-TRACE)
[2021-01-29 14:22] LABS: Amphetamine Screen Urine Not Detected (Not Detect); Barbiturates, Urine Not Detected (Not Detect); Benzodiazepines Screen Urine Not Detected (Not Detect); Cannabinoid Screen Urine Not Detected (Not Detect); Cocaine Screen Urine Not Detected (Not Detect); Fentanyl, urine Not Detected (Not Detect); Opiate Screen Urine Not Detected (Not Detect); Phencyclidine Screen Urine Not Detected (Not Detect)
--- NOTE | 2021-01-29 15:18 | PC.NURSE ---
PATIENT IS CALM AND COOPERATIVE WITH CARE, ASKING FOR FOOD. LAUGHING TALKING WITH STAFF, GRANDIOSE STATEMENTS BUT ABLE TO SELF SOOTH AND BE VERBALLY DEESCALATED WITH STAFF THROUGH CONVERSATION. PLAN FOR CARE TEAM TO COME TALK AGAIN WITH PATIENT RECEIVING A CALL FROM THEM. PATIENTS MOTHER CALLED ASKING FOR AN UPDATE, REQUESTING THAT PATIENT GO TO THE INPATIENT UNIT AT THE HOSPITAL, STATING CARE TEAM WILL BE DOWN TO MAKE ARRANGEMENT WITH PATIENT AND PER PREVIOUS SHIFT NURSE SHANITA.
[2021-01-29] MEDS: Lithium Carbonate 300 MG CAPSULE PO (16:21)
--- NOTE | 2021-01-29 16:23 | PC.NURSE ---
PATIENT STATING THAT HE NEEDS HIS LITHIUM DOSE IT HELPS ME, I FEEL NOT RIGHT . TALKING WITH COLETTE ROCK, PATIENT HAS A LOW LITHIUM LEVEL AND HAD PREVIOUSLY NEED REFUSING MEDICATIONS. PATIENT IS AGREEABLE AT THIS TIME TO TAKE MEDICATIONS. AWAITING ORDERS FOR INPATIENT UNIT.
[2021-01-29 18:00] VITALS: BP 174/89; PULSE 61; RESP 18; TEMP 36.9; O2SAT 99
--- NOTE | 2021-01-29 19:08 | PC.ADMIT ---
Mr. Mcdaniels is a 20 year old male who presented to the unit on a stretcher from the emergency department. Mr. Mcdaniels signed into the unit on a CV. He presents in a manic state with delusional thinking. He is alert and oriented x 3, pleasant on approach, cooperative with admission process and answered questions to the best of his knowledge. Speech is coherent and appropriate. Patient is dressed in hospital attire and appears well groomed. Mr. Mcdaniels is displaying grander style of thinking. He states that I can not ever find anyone as smart as me. That is okay but just that nobody is as smart as me. Mr. Mcdaniels also stated that he can make world peace but I am choosing not do because its not the right time right now . He reports that he has a vising nurse that comes once per week to fill his medications. Mr. Mcdaniels stated that his appetite is good, but reports that he has not slept in days. He reported Some people might need sleep, but not me. I haven't slept in days and i am fine. I used to get 6 or 8 hours but not anymore. And I think i am doing fine . Mr. Mcdaniels is currently denying any SI/HI with no plan and no intent. He also is denying any AH/VH.
[2021-01-29 20:51] VITALS: BP 180/79; PULSE 102; TEMP 36.4; O2SAT 95
[2021-01-29] MEDS: Lithium Carbonate 300 MG CAPSULE 600 MG PO (22:47)
[2021-01-29] MEDS: lamoTRIgine 100 MG TABLET PO (22:48)
[2021-01-29] MEDS: OXcarbazepine 150 MG TABLET 750 MG PO (22:48)
[2021-01-30 07:51] VITALS: BP 161/84; PULSE 108; RESP 16; TEMP 36.6; O2SAT 96
[2021-01-30] MEDS: OXcarbazepine 150 MG TABLET 750 MG PO ×2 (08:22→22:48)
[2021-01-30] MEDS: Cholecalciferol (Vitamin D3) 25 MCG TABLET 125 MCG PO (08:22)
[2021-01-30] MEDS: lamoTRIgine 100 MG TABLET PO ×2 (08:23→22:48)
[2021-01-30] MEDS: Lithium Carbonate 300 MG CAPSULE 600 MG PO ×2 (08:23→22:48)
[2021-01-30] MEDS: Lithium Carbonate 300 MG CAPSULE PO (12:24)
--- NOTE | 2021-01-30 13:16 | P.HPPS_ITS ---
HPI Chief Complaint: manic, hallucinating Sources of Information: patient interviewed, chart reviewed and crisis/core team assessment reviewed HPI Subjective Notes: Conditional Voluntary Narrative: Mr. Mcdaniels is a 20 year-old male with hx of Bipolar type 1 disorder who self presented to [facility] ED initially reporting new revelations that others couldn't understand as they were not as intelligent as him. He barricaded himself in the waiting room and with support of manager foreign he agreed to be evaluated in the ED. In the ED, his utox was negative for opioid, cannabinoids, amphetamine, cocaine, PCP. His lithium level was 0.34. On the unit, pt presents as hyperverbal, stating he sees different realities like [place] movies which he can touch but others can't see. He reports being able to tell when others are hurting children. He reports he does not think he has mental illness. He states manic episodes are not real. He states he is doing well and does not need medications. He reports he does not need to sleep, only meditate at night. Pt wearing clothes of multiple mismatching colors. He was initially hyperverbal but calm, he suddenly stood up and became very irritable, with intense eye contact stating I will kill anyone who hurts the children, I will not spare their lives, I will kill then and they can ask God for forgiveness. 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 However, he also reports that when he walks on the streets he can see if adults walking with children are hurting them. He ripped his sweater off, proceeded to take other clothes, at which point this health underwriter asked pt to step out the room and compose himself. He was able to be redirected and agreed to return to his room and put clothes on. Past Psychiatric History: Inpt: 4 admissions to ; last one 05/2020. Required iv ketamine during one stay due to his giuliana. Shamir Daily is his outpatient psychiatrist Rosendo Bains is his therapist He has been on multiple medications in the past including depakote, abilify, latuda, and [place], olanzapine, thorazine Medical Evaluation Reviewed: Yes slight hyponatremia- will recheck. pt on trileptal [facility] Medical History (Updated 01/30/21 @ 15:37 by Mariah Carranza) Anxiety Bipolar 1 disorder with moderate giuliana Depression No known health problems Family History: Family history is significant for bipolar disorder and alcohol use disorder Social History: Lives with his mother Trauma History: Denies Diagnostics Vital Signs (24Hr): Vital Signs - 24 hr 01/29/21 18:00 01/29/21 20:51 01/30/21 07:51 Temperature 98.4 F 97.6 F 97.8 F Pulse Rate 61 102 H 108 H Respiratory Rate 18 16 Blood Pressure 174/89 H 180/79 H 161/84 H Pulse Oximetry 99 95 96 Body Mass Index 25.6 Labs Results: 01/29/21 11:05 01/29/21 10:02 Labs: Laboratory Results - last 48 hr 01/29/21 01/29/21 01/29/21 10:02 10:02 10:02 WBC RBC Hgb Hct MCV MCH MCHC RDW Plt Count MPV Immature Gran % (Auto) Neut % (Auto) Lymph % (Auto) [place] % (Auto) Eos % (Auto) Baso % (Auto) Lymph # (Auto) [place] # (Auto) Eos # (Auto) Baso # (Auto) Abs Immat Gran (auto) Absolute Neuts (auto) Absolute Nucleated RBC Nucleated RBC % (auto) Sodium 140 Potassium 3.8 Chloride 109 H Carbon Dioxide 22 Anion Gap 13 BUN 15 Creatinine 1.00 Estim Creat Clear Calc 130.9 Estimated GFR > 60 Random Glucose 120 H Calcium 10.0 Magnesium 2.2 Total Bilirubin 0.6 Direct Bilirubin 0.2 AST 25 ALT 22 Alkaline Phosphatase 64 Total Protein 7.7 Albumin 5.0 Urine Color Urine Appearance Urine pH Ur Specific [place] Urine Protein Urine Glucose (UA) Urine Ketones Urine Blood Urine Nitrite Ur Leukocyte Esterase Urine Opiates Screen Urine Fentanyl Screen Ur Barbiturates Screen Ur Phencyclidine Scrn Ur Amphetamines Screen U Benzodiazepines Scrn [place] 0.34 L Urine Cocaine Screen U Marijuana (THC) Screen Ethyl Alcohol COVID-19 ([facility]) Negative COVID-19 Clin Com See Note 01/29/21 01/29/21 01/29/21 10:02 11:05 13:58 WBC 13.1 H RBC 5.05 Hgb 14.4 Hct 43.3 MCV 85.7 MCH 28.5 MCHC 33.3 RDW 13.2 Plt Count 239 MPV 11.6 Immature Gran % (Auto) 0.3 Neut % (Auto) 73.5 H Lymph % (Auto) 14.5 L [place] % (Auto) 10.3 Eos % (Auto) 0.8 Baso % (Auto) 0.6 Lymph # (Auto) 1.9 [place] # (Auto) 1.4 H Eos # (Auto) 0.1 Baso # (Auto) 0.1 Abs Immat Gran (auto) 0.04 H Absolute Neuts (auto) 9.6 H Absolute Nucleated RBC 0.000 Nucleated RBC % (auto) 0.0 Sodium Potassium Chloride Carbon Dioxide Anion Gap BUN Creatinine Estim Creat Clear Calc Estimated GFR Random Glucose Calcium Magnesium Total Bilirubin Direct Bilirubin AST ALT Alkaline Phosphatase Total Protein Albumin Urine Color YELLOW Urine Appearance CLEAR Urine pH 6.0 Ur Specific [place] 1.015 Urine Protein NEG Urine Glucose (UA) NEG Urine Ketones NEG Urine Blood NEG Urine Nitrite NEG Ur Leukocyte Esterase NEG Urine Opiates Screen Urine Fentanyl Screen Ur Barbiturates Screen Ur Phencyclidine Scrn Ur Amphetamines Screen U Benzodiazepines Scrn [place] Urine Cocaine Screen U Marijuana (THC) Screen Ethyl Alcohol < 10 COVID-19 ([facility]) COVID-[employer] 01/29/21 13:58 WBC RBC Hgb Hct MCV MCH MCHC RDW Plt Count MPV Immature Gran % (Auto) Neut % (Auto) Lymph % (Auto) [place] % (Auto) Eos % (Auto) Baso % (Auto) Lymph # (Auto) [place] # (Auto) Eos # (Auto) Baso # (Auto) Abs Immat Gran (auto) Absolute Neuts (auto) Absolute Nucleated RBC Nucleated RBC % (auto) Sodium Potassium Chloride Carbon Dioxide Anion Gap BUN Creatinine Estim Creat Clear Calc Estimated GFR Random Glucose Calcium Magnesium Total Bilirubin Direct Bilirubin AST ALT Alkaline Phosphatase Total Protein Albumin Urine Color Urine Appearance Urine pH Ur Specific [place] Urine Protein Urine Glucose (UA) Urine Ketones Urine Blood Urine Nitrite Ur Leukocyte Esterase Urine Opiates Screen Not Detected Urine Fentanyl Screen Not Detected Ur Barbiturates Screen Not Detected Ur Phencyclidine Scrn Not Detected Ur Amphetamines Screen Not Detected U Benzodiazepines Scrn Not Detected [place] Urine Cocaine Screen Not Detected U Marijuana (THC) Screen Not Detected Ethyl Alcohol COVID-19 ([facility]) COVID-19 [facility] Meds/Allergies Meds Home Medications Acetaminophen (Acetaminophen 325 Mg Tablet) 650 mg PO Q6H PRN PRN Reason: Headache/Pain Mild Scale (1-3) Al Hydroxide/Mg Hydroxide (Magnesium Hydrox/Alum Hydrox 30 Ml Oral.Susp) 30 ml PO Q6H PRN PRN Reason: Heartburn/Nausea Benzocaine (Throat Lozenge, Medicated Lozenge) 1 lozenge MUCOUS MEM Q2H PRN PRN Reason: Sore Throat Hydroxyzine HCl (Hydroxyzine Hcl 25 Mg Tablet) 25 mg PO BEDTIME PRN PRN Reason: Anxiety Lamotrigine (Lamotrigine 100 Mg Tablet) 100 mg PO BID [facility] Last Admin: 01/30/21 08:23 Dose: 100 mg Documented by: [place] Carbonate ([place] Carbonate 300 Mg Capsule) 300 mg PO DAILY@1200 [facility] Last Admin: 01/30/21 12:24 Dose: 300 mg Documented by: [place] Carbonate ([place] Carbonate 300 Mg Capsule) 600 mg PO BID [facility] Last Admin: 01/30/21 08:23 Dose: 600 mg Documented by: Magnesium Hydroxide (Milk Of Magnesia 30 Ml Oral.Susp) 30 ml PO DAILY PRN PRN Reason: Constipation Nicotine Polacrilex (Nicotine Polacrilex 2 Mg Gum) 4 mg [place] Q2H PRN PRN Reason: Nicotine Cravings Olanzapine (Olanzapine 10 Mg Tablet) 10 mg PO BID [facility] Last Admin: 01/30/21 13:59 Dose: Not Given Documented by: Oxcarbazepine (Oxcarbazepine 150 Mg Tablet) 750 mg PO BID [facility] Last Admin: 01/30/21 08:22 Dose: 750 mg Documented by: Trazodone HCl (Trazodone Hcl 50 Mg Tablet) 50 mg PO BEDTIME PRN PRN Reason: Insomnia Trazodone HCl (Trazodone Hcl 50 Mg Tablet) 50 mg PO BEDTIME PRN PRN Reason: Insomnia Vitamin D (Cholecalciferol (Vitamin D3) 25 Mcg Tablet) 125 mcg PO DAILY [facility] Last Admin: 01/30/21 08:22 Dose: 125 mcg Documented by: Allergies Allergies Allergy/AdvReac Type Severity Reaction Status Date / Time fluoxetine AdvReac Severe giuliana Verified 11/13/20 14:20 chlorpromazine AdvReac Intermediate sleep Verified 11/13/20 14:20 [From Thorazine] walking Mental Status Exam Mental Status Exam Narrative: Appearance: casually groomed, fair hygiene in NAD Behavior:initially pleasant, progressively more labile and irritable, intense lo ok and intimidating as pt reported he suspected people were abusing children psychomotor:progressively more agitated and restless Speech:clear, hyperverbal no pressured, regular rhythm, spontaneous Thought process:some derailment Thought content:grandiose delusions of him having special gifts/agarwal given by God, paranoid delusions of ppl hurting children and him wanting to kill these people Mood: good Affect: labile SI:none HI:none VH/AH:pt reports seeing alter world that he can touch, Delusions:paranoid/grandiose delusions Insight/judgment:impaired x 2. Memory/cog: alert, impaired secondary to psychiatric symptoms. Assessment & Plan Assessment & Plan (1) Bipolar 1 disorder with moderate giuliana: Status: Acute Code(s): F31.12 - Bipolar disorder, current episode manic without psychotic features, moderate Assessment and Plan: Mr. Mcdaniels is a 20 year-old male with hx of Bipolar Disorder type 1, multiple inpt admission due to giuliana and psychosis. He self presented to [facility] ED initially he wanted to disclose his new revelations. He was admitted due to increase paranoid delusions of ppl hurting children, grandiose delusions related to pt thinking he has special agarwal. Pt presents as labile, explosive at times. We discussed risks, benefits and alternative treatment options. He agrees to continue mood stabilizers but declines trying antipsychotic at this time. PLAN 1. Admit to [facility] 2. Continue current medications 3. Obtain collateral information 4. Aftercare planning Reason for continued inpatient stay Substantial Risk for: harm to others and inability to function
[2021-01-30] MEDS: Throat Lozenge, Medicated LOZENGE 1 LOZENGE MUCOUS MEM (21:34)
[2021-01-30 21:36] VITALS: BP 127/87; PULSE 82; TEMP 36.8; O2SAT 96
[2021-01-31] MEDS: Throat Lozenge, Medicated LOZENGE 1 LOZENGE MUCOUS MEM ×4 (01:31→23:56)
--- NOTE | 2021-01-31 06:53 | PC.NURSE ---
Pt awake entire shift. Labile, grandiose, irritable, agitated, hyperverbal, tangential, magical thinking, disorganized thought process. Security was called to unit x3 throughout 11- 7 shift, at approx. 2345, 0330, and 0430. Pt was agitated, breathing very heavy, hitting door or very aggressively punching mattress that was put up against bedroom wall. Pt barricaded himself in his room using chairs and the dresser, water spilled all over the floor and plastic bin for laundry was broken. Prn thorazine was offered several times, pt declined. Able to de-escalate when talking to security, however minutes after they left the unit pt continued to exhibit agitated and manic behaviors. Pt showered x2 which he finds helpful. At approx. 0515 pt was able to calm down after speaking with staff for extended period of time and maintain behavioral control.
[2021-01-31 07:36] LABS: Estimated Average Glucose 91 mg/dL; Hemoglobin A1c % 4.8 %
[2021-01-31 07:37] LABS: Cholesterol 106 mg/dL; HDL Cholesterol 37 mg/dL; LDL Cholesterol Calculated 42 mg/dl; Triglycerides 135 mg/dL
[2021-01-31 08:56] VITALS: BP 169/76; PULSE 102; RESP 20; TEMP 36.9; O2SAT 95
[2021-01-31] MEDS: OLANZapine 10 MG VIAL IM (08:56)
[2021-01-31 09:11] VITALS: RESP 18
[2021-01-31 09:26] VITALS: RESP 20
[2021-01-31 09:41] VITALS: RESP 18
[2021-01-31 09:56] VITALS: BP 169/70; PULSE 91; RESP 22; TEMP 36.8; O2SAT 97
--- NOTE | 2021-01-31 10:31 | HO.PSYCHPN ---
Subjective Subjective Date of Service: 01/31/21 Reason For Visit: manic, hallucinating Interim History: pt found asleep on his bed mid-morning after having been chemically restrained. it was felt to be more therapeutic to allow him to rest rather than to awaken him. per staff, pt was awake all night. he refused his zyprexa. he was agitated, hyperverbal, and grandiose. he barricaded his room and was punching his mattress with gusto, exercising a lot. this morning he was seated near the egress and banging on the egress door. he received both morning PO meds as well as IM shortly after and apparently fell asleep on his bed. Mental Status Exam Mental Status Exam Narrative: pt was asleep on his bed, cell phone on chest playing music. Diagnostics Vital Signs (24Hr): Vital Signs - 24 hr 01/30/21 21:36 01/31/21 06:00 Temperature 98.3 F 98.4 F Pulse Rate 82 102 H Respiratory Rate 20 Blood Pressure 127/87 169/76 H Pulse Oximetry 96 95 Body Mass Index 25.6 Labs Results: 01/29/21 11:05 01/29/21 10:02 Labs: Laboratory Results - last 48 hr 01/29/21 01/29/21 01/29/21 10:02 10:02 10:02 WBC RBC Hgb Hct MCV MCH MCHC RDW Plt Count MPV Immature Gran % (Auto) Neut % (Auto) Lymph % (Auto) [place] % (Auto) Eos % (Auto) Baso % (Auto) Lymph # (Auto) [place] # (Auto) Eos # (Auto) Baso # (Auto) Abs Immat Gran (auto) Absolute Neuts (auto) Absolute Nucleated RBC Nucleated RBC % (auto) Sodium 140 Potassium 3.8 Chloride 109 H Carbon Dioxide 22 Anion Gap 13 BUN 15 Creatinine 1.00 Estim Creat Clear Calc 130.9 Estimated GFR > 60 Random Glucose 120 H Estimat Average Glucose Hemoglobin A1c % Calcium 10.0 Magnesium 2.2 Total Bilirubin 0.6 Direct Bilirubin 0.2 AST 25 ALT 22 Alkaline Phosphatase 64 Total Protein 7.7 Albumin 5.0 Triglycerides Cholesterol LDL Cholesterol, Calc HDL Cholesterol Urine Color Urine Appearance Urine pH Ur Specific [place] Urine Protein Urine Glucose (UA) Urine Ketones Urine Blood Urine Nitrite Ur Leukocyte Esterase Urine Opiates Screen Urine Fentanyl Screen Ur Barbiturates Screen Ur Phencyclidine Scrn Ur Amphetamines Screen U Benzodiazepines Scrn [place] 0.34 L Urine Cocaine Screen U Marijuana (THC) Screen COVID-19 (KELVIN) Negative COVID-19 Clin Com See Note 01/29/21 01/29/21 01/29/21 11:05 13:58 13:58 WBC 13.1 H RBC 5.05 Hgb 14.4 Hct 43.3 MCV 85.7 MCH 28.5 MCHC 33.3 RDW 13.2 Plt Count 239 MPV 11.6 Immature Gran % (Auto) 0.3 Neut % (Auto) 73.5 H Lymph % (Auto) 14.5 L [place] % (Auto) 10.3 Eos % (Auto) 0.8 Baso % (Auto) 0.6 Lymph # (Auto) 1.9 [place] # (Auto) 1.4 H Eos # (Auto) 0.1 Baso # (Auto) 0.1 Abs Immat Gran (auto) 0.04 H Absolute Neuts (auto) 9.6 H Absolute Nucleated RBC 0.000 Nucleated RBC % (auto) 0.0 Sodium Potassium Chloride Carbon Dioxide Anion Gap BUN Creatinine Estim Creat Clear Calc Estimated GFR Random Glucose Estimat Average Glucose Hemoglobin A1c % Calcium Magnesium Total Bilirubin Direct Bilirubin AST ALT Alkaline Phosphatase Total Protein Albumin Triglycerides Cholesterol LDL Cholesterol, Calc HDL Cholesterol Urine Color YELLOW Urine Appearance CLEAR Urine pH 6.0 Ur Specific [place] 1.015 Urine Protein NEG Urine Glucose (UA) NEG Urine Ketones NEG Urine Blood NEG Urine Nitrite NEG Ur Leukocyte Esterase NEG Urine Opiates Screen Not Detected Urine Fentanyl Screen Not Detected Ur Barbiturates Screen Not Detected Ur Phencyclidine Scrn Not Detected Ur Amphetamines Screen Not Detected U Benzodiazepines Scrn Not Detected [place] Urine Cocaine Screen Not Detected U Marijuana (THC) Screen Not Detected COVID-19 (KELVIN) COVID-19 Clin Com 01/31/21 01/31/21 06:47 06:47 WBC RBC Hgb Hct MCV MCH MCHC RDW Plt Count MPV Immature Gran % (Auto) Neut % (Auto) Lymph % (Auto) [place] % (Auto) Eos % (Auto) Baso % (Auto) Lymph # (Auto) [place] # (Auto) Eos # (Auto) Baso # (Auto) Abs Immat Gran (auto) Absolute Neuts (auto) Absolute Nucleated RBC Nucleated RBC % (auto) Sodium Potassium Chloride Carbon Dioxide Anion Gap BUN Creatinine Estim Creat Clear Calc Estimated GFR Random Glucose Estimat Average Glucose 91 Hemoglobin A1c % 4.8 Calcium Magnesium Total Bilirubin Direct Bilirubin AST ALT Alkaline Phosphatase Total Protein Albumin Triglycerides 135 Cholesterol 106 D LDL Cholesterol, Calc 42 HDL Cholesterol 37 D Urine Color Urine Appearance Urine pH Ur Specific [place] Urine Protein Urine Glucose (UA) Urine Ketones Urine Blood Urine Nitrite Ur Leukocyte Esterase Urine Opiates Screen Urine Fentanyl Screen Ur Barbiturates Screen Ur Phencyclidine Scrn Ur Amphetamines Screen U Benzodiazepines Scrn [place] Urine Cocaine Screen U Marijuana (THC) Screen COVID-19 (KELVIN) COVID-19 Clin Com Medications Medications Current Medications Generic Name Dose Route Start Last Admin Trade Name Freq PRN Reason Stop Dose Admin Acetaminophen 650 mg 01/29/21 16:33 Acetaminophen 325 Mg Tablet PO Q6H PRN Headache/Pain Mild Scale (1-3) Al Hydroxide/Mg Hydroxide 30 ml 01/29/21 16:33 Magnesium Hydrox/Alum Hydrox 30 Ml Oral.Susp PO Q6H PRN Heartburn/Nausea Benzocaine 1 lozenge 01/30/21 14:54 01/31/21 06:36 Throat Lozenge, Medicated Lozenge MUCOUS MEM 1 lozenge Q2H PRN Administration Sore Throat Chlorpromazine HCl 50 mg 01/31/21 08:46 Chlorpromazine Hcl 25 Mg Tablet PO Q6H PRN agitation Hydroxyzine HCl 25 mg 01/29/21 16:33 Hydroxyzine Hcl 25 Mg Tablet PO BEDTIME PRN Anxiety Lamotrigine 100 mg 01/29/21 21:00 01/30/21 22:48 Lamotrigine 100 Mg Tablet PO 100 mg BID YANI Administration [place] Carbonate 300 mg 01/30/21 12:00 01/30/21 12:24 [place] Carbonate 300 Mg Capsule PO 300 mg DAILY@1200 YANI Administration [place] Carbonate 600 mg 01/29/21 21:00 01/30/21 22:48 [place] Carbonate 300 Mg Capsule PO 600 mg BID YANI Administration Magnesium Hydroxide 30 ml 01/29/21 16:33 Milk Of Magnesia 30 Ml Oral.Susp PO DAILY PRN Constipation Nicotine Polacrilex 4 mg 01/29/21 16:33 Nicotine Polacrilex 2 Mg Gum BUCCAL Q2H PRN Nicotine Cravings Olanzapine 10 mg 01/29/21 13:45 01/30/21 22:53 Olanzapine 10 Mg Tablet PO Not Given BID YANI Oxcarbazepine 750 mg 01/29/21 21:00 01/30/21 22:48 Oxcarbazepine 150 Mg Tablet PO 750 mg BID YANI Administration Trazodone HCl 50 mg 01/29/21 12:20 Trazodone Hcl 50 Mg Tablet PO BEDTIME PRN Insomnia Trazodone HCl 50 mg 01/29/21 16:33 Trazodone Hcl 50 Mg Tablet PO BEDTIME PRN Insomnia Vitamin D 125 mcg 01/30/21 09:00 01/30/21 08:22 Cholecalciferol (Vitamin D3) 25 Mcg Tablet PO 125 mcg DAILY YANI Administration Allergies Allergies Allergy/AdvReac Type Severity Reaction Status Date / Time fluoxetine AdvReac Severe giuliana Verified 11/13/20 14:20 chlorpromazine AdvReac Intermediate sleep Verified 11/13/20 14:20 [From Thorazine] walking Assessment & Plan Assessment & Plan (1) Bipolar 1 disorder with moderate giuliana: Status: Acute Code(s): F31.12 - Bipolar disorder, current episode manic without psychotic features, moderate Assessment and Plan: Mr. Mcdaniels is a 20 year-old male with hx of Bipolar Disorder type 1, multiple inpt admission due to giuliana and psychosis. He self presented to [facility] initially he wanted to disclose his new revelations. He was admitted due to increase paranoid delusions of ppl hurting children, grandiose delusions related to pt thinking he has special agarwal. Pt presents as labile, explosive at times. We discussed risks, benefits and alternative treatment options. He agrees to continue mood stabilizers but declines trying antipsychotic at this time. PLAN 1. Admit to M3 2. Continue current medications 3. Obtain collateral information 4. Aftercare planning Greater than 50% of the session was spent on counseling and/or coordination of care Reason for contiued inpatient stay Substantial Risk for: inability to function and rapid decompensation
--- NOTE | 2021-01-31 11:13 | PC.NURSE ---
At approximately 0800 Pt admitted to breaking mirror on unit stating it was an accident. At approximately 0815 pt was noted to be sitting by an exit door hitting the door. Staff attempted to verbally redirect pt but he did not respond and continued to hit the door with his elbow. Security was called to attempt to talk to pt and redirect him, PT did not respond to security and began pacing up and down the hallway. PT then went into his room and barricaded his door using mattresses and furniture from his room, PT could be heard throwing things in his room. The center door was utilized to remove the mattress and furniture and gain entry into the room. There was noted to be water and apple sauce on his floor, tong and furniture. PT was laying on his floor between the wall and his bed. PT was offered PRN medication, 1:1 time with staff and/or security, to listen to music and quiet time. PT remained laying on the floor quietly. PT then got up and walked into hallway towards exit doors, hitting tong and doors while he was walking. Staff from were called and attempted to speak with PT and continue to offer PT PRN medication. PT continued to ignore staff, then ripped two shirts that he was wearing and throw them on the floor stating you're going to need the strongest people here to take me down while staring and approaching staff, there was noted to be a blanket tied around his neck at this time. PT started running and jumping while kicking tong through the unit, continuing to state I will take all of you down, you will never be able to catch me and if you do it won't end well for any of you, I could hurt you if I wanted to Pt was offered PRN medication again and declined, pt was unable to be verbally redirected. At 0838 Anne-Marie Dillon was notified by Juan Jose fitch of Pt's behavior and ordered olanzapine 10mg IM. PT was medicated at 0856, did not require physical hold or mechanical restraint.
[2021-01-31] MEDS: Acetaminophen 325 MG TABLET 650 MG PO (12:05)
[2021-01-31] MEDS: Lithium Carbonate 300 MG CAPSULE PO (12:05)
[2021-01-31] MEDS: Lithium Carbonate 300 MG CAPSULE 600 MG PO ×2 (13:07→21:05)
[2021-01-31] MEDS: Cholecalciferol (Vitamin D3) 25 MCG TABLET 125 MCG PO (13:08)
[2021-01-31] MEDS: OXcarbazepine 150 MG TABLET 750 MG PO ×2 (13:08→21:06)
[2021-01-31] MEDS: lamoTRIgine 100 MG TABLET PO ×2 (13:08→21:06)
--- NOTE | 2021-01-31 13:11 | PC.NURSE ---
PT requested AM medications, had initially refused due to sedation stating he just wanted to sleep. Per Dr. Turner ok to give all AM meds at this time. Medications administered, pt continues to declined olanzapine
[2021-01-31 20:34] VITALS: BP 138/87; PULSE 96; RESP 18; TEMP 36.5; O2SAT 96
--- NOTE | 2021-02-01 02:48 | PC.NURSE ---
Gino was awake at 0145, patient stated he needed to talk with someone, Gino and this television writer began to have a conversation. About 5 minutes later another patient got up and was walking down the hallway. This television writer left Gino to see what the other patient needed. The other patient wanted a snack so I walked him to the kitchen. At that time, the fire alarm went off and the double doors closed and another staff came on the unit. I went to close all the doors on the unit. Gino became upset and began to throw items around the day room. Patient dumped a pitcher of water on the floor and then threw the pitcher. Patient then took off his jewelry and threw it on the floor. This television writer attempted to engage with patient but patient just walked around this nurse and did not acknowledge my presence. This television writer that asked the other staff member to call up to M5 and ask Heather Luke to come down as she had a good rapport with the patient. Patient then began to kick the exit doors in an attempt to leave. Patient asked to stop and patient walked to the end of the hallway. At this time Heather came onto the unit and was able to engage with patient and walked patient to his room.
[2021-02-01 06:00] VITALS: PULSE 110; RESP 18; TEMP 37.3; O2SAT 98
[2021-02-01] MEDS: OXcarbazepine 150 MG TABLET 750 MG PO ×2 (08:11→20:14)
[2021-02-01] MEDS: lamoTRIgine 100 MG TABLET PO ×2 (08:11→20:14)
[2021-02-01] MEDS: Lithium Carbonate 300 MG CAPSULE 600 MG PO ×2 (08:12→20:13)
[2021-02-01] MEDS: Throat Lozenge, Medicated LOZENGE 1 LOZENGE MUCOUS MEM (10:12)
--- NOTE | 2021-02-01 10:38 | HO.PSYCHPN ---
Subjective Subjective Date of Service: 02/01/21 Reason For Visit: manic, hallucinating Interim History: Patient seen. DW team. Events of yesterday noted. Patient has continued to be manic and hyperverbal. He is grandiose. Asked this process description writer about where he is from. He then said he would like to visit [place]. He said he has a private jet. He said he has a lot of money in his bank account. He adela flight of ideas talking about going to the mall daily, reading two books, then writing on [employer], making his lunch rather than eating at the food court...... He refused AM Zyorexa. Agrees to take it all at night. He says he's willing to take Thorazine but not now because I see things in slow motion when I take it . Denies SI or hallucinations. Medication Compliance: Intermittent Side effects from medications: Yes (sedation/tiredness. ) Attending Groups: No Review of Systems Acute medical concerns: No Medical Review of Systems: unchanged Review of Systems Constitutional: Denies chills, Denies fever(s), Denies headache(s), Denies snoring, Denies weight gain and Denies weight loss Eyes: Reports no additional eye complaints, Denies blurry vision and Denies diplopia Reports Normal hearing present, Denies dizziness, Denies headache(s) and Denies sore throat Cardiovascular: Denies chest pain, Denies chest pain at rest, Denies chest pain with activity, Denies syncope, Denies rapid heart rate, Denies lightheadedness and Denies dyspnea Respiratory: Denies chest congestion, Denies cough, Denies dyspnea and Denies snoring Gastrointestinal: Denies nausea and Denies vomiting Musculoskeletal: Denies myalgias and Denies numbness Skin/Breast: Denies rash Reports Normal hearing present, Reports behavioral changes, Reports confusion, Denies dizziness, Denies syncope, Denies headache(s), Denies numbness, Denies restless legs, Denies convulsions and Denies seizure-like activity Psychiatric: Reports abnormal sleep pattern, Reports anxiety, Reports behavioral changes, Reports change in appetite, Reports confusion, Reports depression, Reports difficulty concentrating, Reports auditory hallucinations, Reports irritability, Reports anhedonia, Reports mood swings, Reports paranoia, Reports visual hallucinations, Reports hallucinations and Reports suicidal ideation (denies) Mental Status Exam Mental Status Exam Narrative: pt was asleep on his bed, cell phone on chest playing music. Patient Appearance: Well Grooomed Patient Orientation: Person, Place and Time Level of Consciousness: Awake and Alert Patient Behavior: Talkative, Hyperactive, Cooperative, Restless, Anxious, Fearful, Distractible, Good Eye Contact, Impulsive and Pacing Mood Description: Fearful, Anxious, Labile, Nervous, Apprehensive and Expansive Affect Description: Labile and Expansive Patient Cognition Impaired: Yes Ability to Follow Directions: Good Speech Pattern: Spontaneous Speech, Rambling, Soft-Spoken, Cofabulation, Rapid, Excessive, Pressured and Excited Memory Description: Remote Impaired and Episodic Impaired Hallucinations: None Delusions: Grandiose and Present Thought Process: Racing and Distracted Thought Content: positive for Racing, positive for Circumstantial, positive for Tangential, positive for Disorganized and positive for Suicidal Ideation Abnormal Motor Activity Signs and Symptoms: Agitation, Hyperactivity and Restlessness Judgement: Poor Diagnostics Vital Signs (24Hr): Vital Signs - 24 hr 01/31/21 20:34 02/01/21 06:00 Temperature 97.7 F 99.2 F Pulse Rate 96 110 H Respiratory Rate 18 18 Blood Pressure 138/87 Pulse Oximetry 96 98 Body Mass Index 25.6 Labs Results: 01/29/21 11:05 01/29/21 10:02 Labs: Laboratory Results - last 48 hr 01/31/21 01/31/21 06:47 06:47 Estimat Average Glucose 91 Hemoglobin A1c % 4.8 Triglycerides 135 Cholesterol 106 D LDL Cholesterol, Calc 42 HDL Cholesterol 37 D Medications Medications Current Medications Generic Name Dose Route Start Last Admin Trade Name [place] PRN Reason Stop Dose Admin Acetaminophen 650 mg 01/29/21 16:33 01/31/21 12:05 Acetaminophen 325 Mg Tablet PO 650 mg Q6H PRN Administration Headache/Pain Mild Scale (1-3) Al Hydroxide/Mg Hydroxide 30 ml 01/29/21 16:33 Magnesium Hydrox/Alum Hydrox 30 Ml Oral.Susp PO Q6H PRN Heartburn/Nausea Benzocaine 1 lozenge 01/30/21 14:54 02/01/21 10:12 Throat Lozenge, Medicated Lozenge MUCOUS MEM 1 lozenge Q2H PRN Administration Sore Throat Chlorpromazine HCl 50 mg 01/31/21 08:46 Chlorpromazine Hcl 25 Mg Tablet PO Q6H PRN agitation Hydroxyzine HCl 25 mg 01/29/21 16:33 Hydroxyzine Hcl 25 Mg Tablet PO BEDTIME PRN Anxiety Lamotrigine 100 mg 01/29/21 21:00 02/01/21 08:11 Lamotrigine 100 Mg Tablet PO 100 mg BID YANI Administration [place] Carbonate 300 mg 01/30/21 12:00 01/31/21 12:05 [place] Carbonate 300 Mg Capsule PO 300 mg DAILY@1200 YANI Administration [place] Carbonate 600 mg 01/29/21 21:00 02/01/21 08:12 [place] Carbonate 300 Mg Capsule PO 600 mg BID YANI Administration Magnesium Hydroxide 30 ml 01/29/21 16:33 Milk Of Magnesia 30 Ml Oral.Susp PO DAILY PRN Constipation Nicotine Polacrilex 4 mg 01/29/21 16:33 Nicotine Polacrilex 2 Mg Gum BUCCAL Q2H PRN Nicotine Cravings Olanzapine 10 mg 01/29/21 13:45 02/01/21 10:02 Olanzapine 10 Mg Tablet PO Not Given BID YANI Oxcarbazepine 750 mg 01/29/21 21:00 02/01/21 08:11 Oxcarbazepine 150 Mg Tablet PO 750 mg BID YANI Administration Trazodone HCl 50 mg 01/29/21 12:20 Trazodone Hcl 50 Mg Tablet PO BEDTIME PRN Insomnia Trazodone HCl 50 mg 01/29/21 16:33 Trazodone Hcl 50 Mg Tablet PO BEDTIME PRN Insomnia Vitamin D 125 mcg 01/30/21 09:00 02/01/21 10:00 Cholecalciferol (Vitamin D3) 25 Mcg Tablet PO Not Given DAILY YANI Allergies Allergies Allergy/AdvReac Type Severity Reaction Status Date / Time fluoxetine AdvReac Severe giuliana Verified 11/13/20 14:20 chlorpromazine AdvReac Intermediate sleep Verified 11/13/20 14:20 [From Thorazine] walking Assessment & Plan Assessment & Plan (1) Bipolar 1 disorder with moderate giuliana: Status: Acute Code(s): F31.12 - Bipolar disorder, current episode manic without psychotic features, moderate Assessment and Plan: Mr. Mcdaniels is a 20 year-old male with hx of Bipolar Disorder type 1, multiple inpt admission due to giuliana and psychosis. He self presented to [facility] initially he wanted to disclose his new revelations. He was admitted due to increase paranoid delusions of ppl hurting children, grandiose delusions related to pt thinking he has special agarwal. Pt presents as labile, explosive at times. We discussed risks, benefits and alternative treatment options. He agrees to continue mood stabilizers but declines trying antipsychotic at this time. PLAN 1. Admit to M3 2. Continue current medications 3. Obtain collateral information - Agrees to switching all Zyprexa to HS and taking Thorazine PRN. 4. Aftercare planning Greater than 50% of the session was spent on counseling and/or coordination of care Reason for contiued inpatient stay Substantial Risk for: inability to function and rapid decompensation
[2021-02-01] MEDS: Lithium Carbonate 300 MG CAPSULE PO (12:29)
[2021-02-01] MEDS: chlorproMAZINE HCl 25 MG TABLET 50 MG PO (13:25)
[2021-02-01] MEDS: Cholecalciferol (Vitamin D3) 25 MCG TABLET 125 MCG PO (13:25)
[2021-02-01] MEDS: OLANZapine 10 MG VIAL IM (19:25)
[2021-02-01] MEDS: OLANZapine 10 MG TABLET 20 MG PO (20:13)
--- NOTE | 2021-02-01 20:32 | PC.NURSE ---
Patient increasingly irritable and agitated as evening progressed. At approximately 1815 patient started disrobing, pacing unit rapidly, non receptive to redirection. Patient observed to have sheet wrapped around neck and fist. Patient observed to run and kick exit door forcefully several times. Staff attempted to verbally redirect, however patient did not respond. Patient refused to put on clothes and remove sheet from neck. Security was called to talk with patient. Patient was offered 1:1 time with staff or security, food and fluids and music. [employer] called for medication orders as patient did not have any PRN's available. Patient refusing to take medication, threatening staff, non receptive to redirections. Patient sitting at the end of valencia demanding to call someone higher than you to speak with. Making statements he could hurt all of you It is going to be a blood bath . Patient ambulating unit, removed sheet from neck. Patient ran down valencia, slammed fire doors closed, continued to refused medication, proceeded to shut other patients doors. Security reinforcement called. Patient continued to refuse medication, moved about unit, moved furniture in dining area, climbed up on tv shelf refusing to get down. Patient continued with threatening behavior, refusing to take medication. Patient sat in restraint chair, restraints applied. Medicated with Zyprexa 10mg IM 1924.
--- NOTE | 2021-02-02 00:45 | PC.NURSE ---
Addendum entered by Ken Pryor RN 02/02/21 05:57: Patient was seen by the hospital Dr. Willoughby at 0800. No issues we found. Original Note: Gino was angry and upset at the beginning of shift at 1900. An order for IM Zyprexa was given due to patient's agitation. Security was called up to M3. Patient made some threatening comments if staff should attempt to restrain him to give him an injection. Patient ran down the hallway and kicked on the exit door. Patient continued to be aggressive and returned to the dayroom where he placed several chairs in the path of staff. Staff moved most of the furniture to one side of the room. Gino fajardo ran over to the TV area and jumped onto the counter. Tisha fajardo began to slap his hand on the top of the cabinet in an attempt to notify others that he was acting out. [place] [employer] department was called for extra help. The restraint chair was brought out to the dayroom. Staff continued to talk with patient. Patient stated that he wanted to be in the restraint chair. Tisha fajardo allowed staff to place him in the chair. While in the restraint chair, patient was given IM injection of Zyprexa 10 mg. Tisha was than wheeled to his room in the restraint chair. Patient went into the restraint chair at 1923 and was released at 2002. Tisha fajardo took his oral HS medications and was placed on a 1:1 for safety.
[2021-02-02 06:00] VITALS: BP 157/69; PULSE 89; RESP 22; TEMP 36.8; O2SAT 97
[2021-02-02] MEDS: Throat Lozenge, Medicated LOZENGE 1 LOZENGE MUCOUS MEM (06:04)
[2021-02-02] MEDS: Cholecalciferol (Vitamin D3) 25 MCG TABLET 125 MCG PO (08:54)
[2021-02-02] MEDS: lamoTRIgine 100 MG TABLET PO ×2 (08:55→21:13)
[2021-02-02] MEDS: OXcarbazepine 150 MG TABLET 750 MG PO ×2 (08:55→21:13)
[2021-02-02] MEDS: Lithium Carbonate 300 MG CAPSULE 600 MG PO ×2 (08:55→21:13)
--- NOTE | 2021-02-02 09:03 | PC.NURSE ---
Patient visible in milieu, reports I am already feeling angry, can you call security. I want to go for a fresh air break . Patient offered PRN Thorazine however declined. Accepted AM medication without difficulty. Security called, offered fresh air .
--- NOTE | 2021-02-02 09:33 | PC.NURSE ---
Patient tolerated fresh air break with senior network security architect Ayah. Patient continues upset he has not had visitors, upset he has not been allowed to have his belongings that came in yesterday. Allowed to vent, yelling at times. Again offered PRN medication, stated he will ask for it when he feels he needs it.
[2021-02-02] MEDS: chlorproMAZINE HCl 25 MG TABLET 50 MG PO ×3 (10:15→21:13)
--- NOTE | 2021-02-02 10:17 | PC.NURSE ---
Patient received phone call, following phone call appeared to be crying. Retreated to room, walking on bed, then up on desk. Sat down on desk following staff request. Proceeded to get blanket to wrap around self, and head. Male staff assisted to redirect patient, accepted 50mg PO Thorazine and phone call. Effects pending.
--- NOTE | 2021-02-02 11:13 | PC.NURSE ---
Patient approached desk, apologized for recent behavior. States I was just upset about my family . Thank you for helping me . Reports + effect from medication.
[2021-02-02] MEDS: Lithium Carbonate 300 MG CAPSULE PO (12:18)
--- NOTE | 2021-02-02 13:12 | PC.NURSE ---
Patient with brief verbal outburst, threatening posture and stance. Upset about personal belongings he has not yet received. Able to be redirected, de escalated by male staff. Security called for fresh air break. Patient currently eating lunch.
--- NOTE | 2021-02-02 13:27 | PC.NURSE ---
Patient mother visiting. Dropped belongings off for patient. Will need to be gone through. Mother gave approval/consent for patient to have Beats headphones. Patient requested mother leave as he was becoming increasingly agitated. Retreated to room, continues on 1:1 with staff.
[2021-02-02 18:20] VITALS: BP 140/66; PULSE 138; RESP 20; TEMP 36.7; O2SAT 97
--- NOTE | 2021-02-02 20:07 | PC.NURSE ---
Patient upset following phone call upon which he found out his mother was in the hospital following a fall. Patient agitated, ambulating valencia rapidly. Punching hallway repeatedly, non receptive to staff. Security called, patient continued non receptive to intervention. Patient slammed fire door, Sitting at end of valencia not engaging with staff. Proceeded to punch fire box multiple times. Patient pushing on fire doors in attempt to leave unit. Patient refusing to take oral medication. Patient offered music, 1:1 with staff and security, ventilation of feelings however patient not talking with staff, becoming increasingly agitated. Punching wall in room repeatedly. Patient continues to refuse to take medication. MD notified, order obtained for IM medication. M5 called in effort to talk with patient. Patient allowed staff to administer IM Thorazine, stating he was important because of his watch.
--- NOTE | 2021-02-02 20:09 | HO.PSYCHPN ---
Subjective Subjective Date of Service: 02/02/21 Reason For Visit: manic, hallucinating Interim History: Patient seen. DW team. Events of yesterday noted. He was agitated about headphones that he asked someone to buy him and he couldn't get them. Staff were concerned about him spending excessively due to his giuliana. He needed to be chemically and physically restrained. Today he continues disorganized. He is wearing a winter jacket, gloves and has his hoodie pulled over his head. He says he likes to be warm. He was offered increased Thorazine for his agitation because he said it calms him down but he refused. He is grandiose. He took all Zyprexa 20 mg HS. Denies SI or hallucinations. Review of Systems Constitutional: Denies chills, Denies fever(s), Denies headache(s), Denies snoring, Denies weight gain and Denies weight loss Eyes: Reports no additional eye complaints, Denies blurry vision and Denies diplopia Reports Normal hearing present, Denies dizziness, Denies headache(s) and Denies sore throat Cardiovascular: Denies chest pain, Denies chest pain at rest, Denies chest pain with activity, Denies syncope, Denies rapid heart rate, Denies lightheadedness and Denies dyspnea Respiratory: Denies chest congestion, Denies cough, Denies dyspnea and Denies snoring Gastrointestinal: Denies nausea and Denies vomiting Musculoskeletal: Denies myalgias and Denies numbness Skin/Breast: Denies rash Reports Normal hearing present, Reports behavioral changes, Reports confusion, Denies dizziness, Denies syncope, Denies headache(s), Denies numbness, Denies restless legs, Denies convulsions and Denies seizure-like activity Psychiatric: Reports abnormal sleep pattern, Reports anxiety, Reports behavioral changes, Reports change in appetite, Reports confusion, Reports depression, Reports difficulty concentrating, Reports auditory hallucinations, Reports irritability, Reports anhedonia, Reports mood swings, Reports paranoia, Reports visual hallucinations, Reports hallucinations and Reports suicidal ideation (denies) Mental Status Exam Mental Status Exam Patient Appearance: Bizarre (Wearing winter jacket and gloves. ) Patient Orientation: Person, Place and Time Level of Consciousness: Awake and Alert Patient Behavior: Talkative, Hyperactive, Aggressive, Restless, Distractible, Good Eye Contact, Uncooperative, Impulsive and Pacing Mood Description: Fearful, Anxious, Labile, Angry, Nervous and Expansive Affect Description: Hostile, Labile, Angry and Expansive Patient Cognition Impaired: Yes Ability to Follow Directions: Good Speech Pattern: Spontaneous Speech, Rambling, Soft-Spoken, Cofabulation, Rapid, Excessive, Pressured and Excited Memory Description: Remote Impaired and Episodic Impaired Delusions: Grandiose Thought Process: Racing, Illogical and Distracted Thought Content: positive for Flight of Ideas, positive for Racing, positive for Circumstantial, positive for Perseveration and positive for Disorganized Abnormal Motor Activity Signs and Symptoms: Aggression, Agitation, Hyperactivity and Restlessness Judgement: Poor Diagnostics Vital Signs (24Hr): Vital Signs - 24 hr 02/02/21 06:00 02/02/21 18:20 Temperature 98.3 F 98.0 F Pulse Rate 89 138 H Respiratory Rate 22 H 20 Blood Pressure 157/69 H 140/66 H Pulse Oximetry 97 97 Body Mass Index 25.6 Labs Results: 01/29/21 11:05 01/29/21 10:02 Medications Medications Current Medications Generic Name Dose Route Start Last Admin Trade Name Freq PRN Reason Stop Dose Admin Acetaminophen 650 mg 01/29/21 16:33 01/31/21 12:05 Acetaminophen 325 Mg Tablet PO 650 mg Q6H PRN Administration Headache/Pain Mild Scale (1-3) Al Hydroxide/Mg Hydroxide 30 ml 01/29/21 16:33 Magnesium Hydrox/Alum Hydrox 30 Ml Oral.Susp PO Q6H PRN Heartburn/Nausea Benzocaine 1 lozenge 01/30/21 14:54 02/02/21 06:04 Throat Lozenge, Medicated Lozenge MUCOUS MEM 1 lozenge Q2H PRN Administration Sore Throat Chlorpromazine HCl 50 mg 01/31/21 08:46 02/02/21 10:15 Chlorpromazine Hcl 25 Mg Tablet PO 50 mg Q6H PRN Administration agitation Chlorpromazine HCl 50 mg 02/02/21 15:00 02/02/21 15:02 Chlorpromazine Hcl 25 Mg Tablet PO 50 mg TID YANI Administration Hydroxyzine HCl 25 mg 01/29/21 16:33 Hydroxyzine Hcl 25 Mg Tablet PO BEDTIME PRN Anxiety Lamotrigine 100 mg 01/29/21 21:00 02/02/21 08:55 Lamotrigine 100 Mg Tablet PO 100 mg BID YANI Administration [place] Carbonate 300 mg 01/30/21 12:00 02/02/21 12:18 [place] Carbonate 300 Mg Capsule PO 300 mg DAILY@1200 YANI Administration [place] Carbonate 600 mg 01/29/21 21:00 02/02/21 08:55 [place] Carbonate 300 Mg Capsule PO 600 mg BID YANI Administration Magnesium Hydroxide 30 ml 01/29/21 16:33 Milk Of Magnesia 30 Ml Oral.Susp PO DAILY PRN Constipation Nicotine Polacrilex 4 mg 01/29/21 16:33 Nicotine Polacrilex 2 Mg Gum BUCCAL Q2H PRN Nicotine Cravings Olanzapine 20 mg 02/01/21 21:00 02/01/21 20:13 Olanzapine 10 Mg Tablet PO 20 mg BEDTIME YANI Administration Oxcarbazepine 750 mg 01/29/21 21:00 02/02/21 08:55 Oxcarbazepine 150 Mg Tablet PO 750 mg BID YANI Administration Trazodone HCl 50 mg 01/29/21 12:20 Trazodone Hcl 50 Mg Tablet PO BEDTIME PRN Insomnia Trazodone HCl 50 mg 01/29/21 16:33 Trazodone Hcl 50 Mg Tablet PO BEDTIME PRN Insomnia Vitamin D 125 mcg 01/30/21 09:00 02/02/21 08:54 Cholecalciferol (Vitamin D3) 25 Mcg Tablet PO 125 mcg DAILY YANI Administration Allergies Allergies Allergy/AdvReac Type Severity Reaction Status Date / Time fluoxetine AdvReac Severe giuliana Verified 11/13/20 14:20 chlorpromazine AdvReac Intermediate sleep Verified 11/13/20 14:20 [From Thorazine] walking Assessment & Plan Assessment & Plan (1) Bipolar 1 disorder with moderate giuliana: Status: Acute Code(s): F31.12 - Bipolar disorder, current episode manic without psychotic features, moderate Assessment and Plan: Mr. Mcdaniels is a 20 year-old male with hx of Bipolar Disorder type 1, multiple inpt admission due to giuliana and psychosis. He self presented to [facility] ED initially he wanted to disclose his new revelations. He was admitted due to increase paranoid delusions of ppl hurting children, grandiose delusions related to pt thinking he has special agarwal. Pt presents as labile, explosive at times. We discussed risks, benefits and alternative treatment options. He agrees to continue mood stabilizers but declines trying antipsychotic at this time. PLAN - Made Thorazine TID scheduled in addition to his PRN Thorazine. 1. Admit to M3 2. Continue current medications 3. Obtain collateral information 4. Aftercare planning Greater than 50% of the session was spent on counseling and/or coordination of care Reason for contiued inpatient stay Substantial Risk for: harm to others, inability to function and rapid decompensation
[2021-02-02] MEDS: OLANZapine 10 MG VIAL IM (21:00)
[2021-02-02] MEDS: OLANZapine 10 MG TABLET 20 MG PO (21:13)
--- NOTE | 2021-02-02 23:30 | PC.NURSE ---
At approx. 2030 pt approached staff requesting to video-call his dad, when redirected to use the unit phone that was available to him, pt became highly agitated, immediately walking away and punching/kicking tong and unit doors. Pt closed double doors blocking off one end of unit hallway, keeping himself behind doors and holding shut, preventing staff from being able to open them. Security was called to unit to assist. Pt proceeded to open the doors and walk down hallway to his bedroom, continuing to punch tong, kick and slam doors. Once in his room pt stood on top of the book shelf, began to repeatedly state that he would not take medications and threw two cups of water at staff and security. Pt also took blankets, shirts, and other wripped articles of clothing and wrapped them around his hands and wrists in a provacative manner, as if preparing to fight. Psychiatrist pony edger, Dr. George, was notified of events and order for Zyprexa 10 mg IM was obtained, to be administered as a medication restraint. Due to pt behaviors and level of agitation, the team decided that the restraint chair would need to be utilized; when it was brought into the room pt willingly sat in the chair as he had verbalized that this was an effective de-escalation technique for him. This restraint was initiated at 2099 and injection was administered without incident. Pt was released from restraint chair at 2149 with incident. Hospitalist, Dr. Cantu, was texted at 2102 to see the pt for post-restraint eval; response received at 2119 stating that she would come to see pt as soon as she was finished with an assignment, and was on unit to see pt at 2324. Post restraint vitals were stable. No injuries noted or reported by pt. Pt also accepted scheduled bedtime medications during this time. He presented as sedated, periodically falling asleep for short periods of time as he seemed to try resist falling asleep. Of note, during this episode of agitation pt requested and submitted a 3 day notice, which will be up on 02/05.
--- NOTE | 2021-02-03 07:29 | PC.NURSE ---
retracted 3 day notice
[2021-02-03] MEDS: Throat Lozenge, Medicated LOZENGE 1 LOZENGE MUCOUS MEM ×3 (07:52→22:31)
[2021-02-03] MEDS: OXcarbazepine 150 MG TABLET 750 MG PO ×2 (08:00→20:27)
[2021-02-03] MEDS: Cholecalciferol (Vitamin D3) 25 MCG TABLET 125 MCG PO (08:00)
[2021-02-03] MEDS: Lithium Carbonate 300 MG CAPSULE 600 MG PO ×2 (08:01→20:27)
[2021-02-03] MEDS: lamoTRIgine 100 MG TABLET PO ×2 (08:02→20:26)
[2021-02-03 09:30] VITALS: BP 155/65; PULSE 117; TEMP 37.4
[2021-02-03] MEDS: chlorproMAZINE HCl 25 MG TABLET PO ×2 (10:50→20:26)
[2021-02-03] MEDS: LORazepam 1 MG TABLET PO ×3 (10:50→20:26)
[2021-02-03] MEDS: Lithium Carbonate 300 MG CAPSULE PO (13:56)
[2021-02-03 14:38] LABS: COVID-19 Test Negative (Negative); IDNOW Serial# 9DD0AD1C
--- NOTE | 2021-02-03 15:23 | P.PNPSI_ITS ---
Subjective Subjective Date of Service: 02/03/21 Reason For Visit: manic, hallucinating Interim History: pt seen wandering the hallways mid-morning. eager to meet with MD. somewhat pressured and difficult to redirect. does not like thorazine because it slows him down too much. would like less of it. agreeable to take 25 mg TID with ativan 1 mg TID as well. will check lithium level tomorrow morning for trough. states he does not like tegretol or depakote, so he is taking trileptal. per staff, pt retracted his 3-day notice. on 1:1 staffing. had multiple restraints over w/e. 2 medication and one in restraint chair. was given thorazine 50 mg IM, which was not very effective. disruptive behaviors included holding doors to the unit shut, getting into the jabier port, throwing water, banging himself into tong, ripping his jacket and breaking his gold chain. Mental Status Exam Mental Status Exam Patient Appearance: Disheveled Patient Orientation: Person, Place and Time Level of Consciousness: Awake and Alert Patient Behavior: Talkative, Hyperactive, Aggressive, Restless, Distractible, Good Eye Contact, Impulsive and Pacing Mood Description: Labile, Nervous and Expansive Affect Description: Labile, Angry and Expansive Patient Cognition Impaired: Yes Ability to Follow Directions: Good Speech Pattern: Spontaneous Speech, Rambling, Soft-Spoken, Cofabulation (confabulation), Rapid, Excessive, Pressured and Excited Memory Description: Remote Impaired and Episodic Impaired Delusions: Grandiose Thought Process: Racing, Illogical and Distracted Thought Content: positive for Flight of Ideas, positive for Racing, positive for Circumstantial, positive for Perseveration and positive for Disorganized Abnormal Motor Activity Signs and Symptoms: Agitation, Hyperactivity and Restlessness Judgement: Poor Diagnostics Vital Signs (24Hr): Vital Signs - 24 hr 02/02/21 18:20 02/03/21 09:30 Temperature 98.0 F 99.4 F Pulse Rate 138 H 117 H Respiratory Rate 20 Blood Pressure 140/66 H 155/65 H Pulse Oximetry 97 Body Mass Index 25.6 Labs Results: 01/29/21 11:05 01/29/21 10:02 Labs: Laboratory Results - last 48 hr 02/03/21 13:44 COVID-19 ([facility]) Negative COVID-19 Clin Com See Note Medications Medications Current Medications Generic Name Dose Route Start Last Admin Trade Name Freq PRN Reason Stop Dose Admin Acetaminophen 650 mg 01/29/21 16:33 01/31/21 12:05 Acetaminophen 325 Mg Tablet PO 650 mg Q6H PRN Administration Headache/Pain Mild Scale (1-3) Al Hydroxide/Mg Hydroxide 30 ml 01/29/21 16:33 Magnesium Hydrox/Alum Hydrox 30 Ml Oral.Susp PO Q6H PRN Heartburn/Nausea Benzocaine 1 lozenge 01/30/21 14:54 02/03/21 14:40 Throat Lozenge, Medicated Lozenge MUCOUS MEM 1 lozenge Q2H PRN Administration Sore Throat Chlorpromazine HCl 50 mg 01/31/21 08:46 02/02/21 10:15 Chlorpromazine Hcl 25 Mg Tablet PO 50 mg Q6H PRN Administration agitation Chlorpromazine HCl 25 mg 02/03/21 15:00 02/03/21 10:50 Chlorpromazine Hcl 25 Mg Tablet PO 25 mg TID YANI Administration Hydroxyzine HCl 50 mg 02/03/21 11:03 Hydroxyzine Hcl 25 Mg Tablet PO Q4H PRN Anxiety or congestion Lamotrigine 100 mg 01/29/21 21:00 02/03/21 08:02 Lamotrigine 100 Mg Tablet PO 100 mg BID YANI Administration [place] Carbonate 300 mg 01/30/21 12:00 02/03/21 13:56 [place] Carbonate 300 Mg Capsule PO 300 mg DAILY@1200 YANI Administration [place] Carbonate 600 mg 01/29/21 21:00 02/03/21 08:01 [place] Carbonate 300 Mg Capsule PO 600 mg BID YANI Administration Lorazepam 1 mg 02/03/21 10:25 02/03/21 10:50 Lorazepam 1 Mg Tablet PO 1 mg TID YANI Administration Magnesium Hydroxide 30 ml 01/29/21 16:33 Milk Of Magnesia 30 Ml Oral.Susp PO DAILY PRN Constipation Nicotine Polacrilex 4 mg 01/29/21 16:33 Nicotine Polacrilex 2 Mg Gum BUCCAL Q2H PRN Nicotine Cravings Olanzapine 20 mg 02/01/21 21:00 02/02/21 21:13 Olanzapine 10 Mg Tablet PO 20 mg BEDTIME YANI Administration Oxcarbazepine 750 mg 01/29/21 21:00 02/03/21 08:00 Oxcarbazepine 150 Mg Tablet PO 750 mg BID YANI Administration Trazodone HCl 50 mg 01/29/21 12:20 Trazodone Hcl 50 Mg Tablet PO BEDTIME PRN Insomnia Trazodone HCl 50 mg 01/29/21 16:33 Trazodone Hcl 50 Mg Tablet PO BEDTIME PRN Insomnia Vitamin D 125 mcg 01/30/21 09:00 02/03/21 08:00 Cholecalciferol (Vitamin D3) 25 Mcg Tablet PO 125 mcg DAILY YANI Administration Allergies Allergies Allergy/AdvReac Type Severity Reaction Status Date / Time fluoxetine AdvReac Severe giuliana Verified 11/13/20 14:20 chlorpromazine AdvReac Intermediate sleep Verified 11/13/20 14:20 [From Thorazine] walking Assessment & Plan Assessment & Plan (1) Bipolar 1 disorder with moderate giuliana: Status: Acute Code(s): F31.12 - Bipolar disorder, current episode manic without psychotic features, moderate Assessment and Plan: Mr. Mcdaniels is a 20 year-old male with hx of Bipolar Disorder type 1, multiple inpt admission due to giuliana and psychosis. He self presented to [facility] initially he wanted to disclose his new revelations. He was admitted due to increase paranoid delusions of ppl hurting children, grandiose delusions related to pt thinking he has special agarwal. Pt presents as labile, explosive at times. We discussed risks, benefits and alternative treatment options. He agrees to continue mood stabilizers but declines trying antipsychotic at this time. PLAN - Made Thorazine TID scheduled in addition to his PRN Thorazine. checking lithium level 02/04. added ativan 1 TID for giuliana. 1. Admit to M3 2. Continue current medications 3. Obtain collateral information 4. Aftercare planning Greater than 50% of the session was spent on counseling and/or coordination of care Reason for contiued inpatient stay Substantial Risk for: harm to self, harm to others and inability to function
[2021-02-03] MEDS: OLANZapine 10 MG TABLET 20 MG PO (20:26)
[2021-02-04 06:00] VITALS: BP 139/77; PULSE 90; RESP 18; TEMP 36.6; O2SAT 98
[2021-02-04 08:20] LABS: MANUAL DIFF FLAG NO
[2021-02-04 08:29] LABS: Basophils Absolute Auto 0.1 X10*3/uL (0.0-0.2); Basophils Percent Auto 0.3 % (0-2); Eosinophils Absolute Auto 0.3 X10*3/uL (0.0-0.4); Eosinophils Percent Auto 1.7 % (0-4); Hemoglobin 14.4 g/dl (14.0-18.0); Imm Gran Abs Auto 0.06 X10*3/uL (0.00-0.03); Imm Gran Pct Auto 0.4 % (0.0-0.4); Lymphocytes Absolute Auto 1.2 X10*3/uL (1.2-4.9); Lymphocytes Percent Auto 8.1 % (20-40); Mean Corpuscular HGB Conc 32.7 g/dl (31.0-36.0); Mean Corpuscular Hemoglobin 28.6 pg (27.0-33.0); Mean Corpuscular Volume 87.3 fL (80-98); Mean Platelet Volume 11.8 fL (9.4-12.4); Monocytes Absolute Auto 1.4 X10*3/uL (0.1-1.2); Monocytes Percent Auto 9.6 % (2-11); Neutrophils Absolute Auto 11.6 X10*3/uL (2.0-8.3); Neutrophils Percent Auto 79.9 % (45-73); Platelet Count 243 X10*3/uL (160-400); Red Blood Count 5.04 X10*6/uL (4.60-5.80); Red Cell Distribution Width 13.2 % (11.0-16.0); White Blood Count 14.5 X10*3/uL (4.8-10.8)
[2021-02-04 08:38] LABS: Anion Gap 12 (12-20); Blood Urea Nitrogen 8 mg/dL (9-16); Carbon Dioxide 24 mmol/L (22-29); Chloride 108 mmol/L (96-108); Creatinine Clr Calc Pharmacy 155.8; Estimated Glomerular Filt Rate > 60; Glucose Random 98 mg/dL (60-115); Potassium 4.3 mmol/L (3.3-5.1); Sodium 140 mmol/L (135-145)
[2021-02-04] MEDS: lamoTRIgine 100 MG TABLET PO ×2 (08:49→21:03)
[2021-02-04] MEDS: Cholecalciferol (Vitamin D3) 25 MCG TABLET 125 MCG PO (08:49)
[2021-02-04] MEDS: Lithium Carbonate 300 MG CAPSULE 600 MG PO ×2 (08:50→21:03)
[2021-02-04] MEDS: OXcarbazepine 150 MG TABLET 750 MG PO ×2 (08:50→21:03)
--- NOTE | 2021-02-04 08:57 | HO.PSYCHPN ---
Subjective Subjective Date of Service: 02/05/21 Reason For Visit: manic, hallucinating Interim History: Pt in morning was brought to fresh air and tried to elope- had to be brought back to unit with redirection and security present. Pt continues to present as disorganized, disheveled, guarded, labile. He continues to report that he is worried someone is killing children. He feels as it is his mission to stop whoever is doing this. Pt pacing halls, at times throwing clothes or other objects. He is internally preoccupied. Medication Compliance: Yes Side effects from medications: No Review of Systems Constitutional: Denies chills, Denies fever(s), Denies headache(s), Denies snoring, Denies weight gain and Denies weight loss Eyes: Reports no additional eye complaints, Denies blurry vision and Denies diplopia Reports Normal hearing present, Denies dizziness, Denies headache(s) and Denies sore throat Cardiovascular: Denies chest pain, Denies chest pain at rest, Denies chest pain with activity, Denies syncope, Denies rapid heart rate, Denies lightheadedness and Denies dyspnea Respiratory: Denies chest congestion, Denies cough, Denies dyspnea and Denies snoring Gastrointestinal: Denies nausea and Denies vomiting Musculoskeletal: Denies myalgias and Denies numbness Skin/Breast: Denies rash Reports Normal hearing present, Reports behavioral changes, Reports confusion, Denies dizziness, Denies syncope, Denies headache(s), Denies numbness, Denies restless legs, Denies convulsions and Denies seizure-like activity Psychiatric: Reports abnormal sleep pattern, Reports anxiety, Reports behavioral changes, Reports change in appetite, Reports confusion, Reports depression, Reports difficulty concentrating, Reports auditory hallucinations, Reports irritability, Reports anhedonia, Reports mood swings, Reports paranoia, Reports visual hallucinations, Reports hallucinations and Reports suicidal ideation (denies) Mental Status Exam Mental Status Exam Narrative: Appearance: casually groomed, fair hygiene in NAD Behavior: guarded, easily irritable and labile, intense eye contact psychomotor:restless, pacing Speech:mumbles at times, some delayed in response rate, spontaneous Thought process:derailment Thought content:paranoid delusions of ppl killing children, grandiose delusions Mood: good Affect: labile SI:denies HI:towards whoever hurt children VH/AH:internally preoccupied Delusions:paranoid/grandiose Insight/judgment:impaired x 2. Memory/cog: alert, impaired secondary to psychiatric symptoms. Diagnostics Vital Signs (24Hr): Vital Signs - 24 hr 02/04/21 20:10 Temperature 97.2 F Pulse Rate 97 Respiratory Rate 18 Blood Pressure 141/64 H Pulse Oximetry 95 Body Mass Index 25.6 Labs Results: 02/04/21 08:12 02/04/21 08:12 Labs: Laboratory Results - last 48 hr 02/03/21 02/04/21 02/04/21 13:44 08:12 08:12 WBC 14.5 H RBC 5.04 Hgb 14.4 Hct 44.0 MCV 87.3 MCH 28.6 MCHC 32.7 RDW 13.2 Plt Count 243 MPV 11.8 Immature Gran % (Auto) 0.4 Neut % (Auto) 79.9 H Lymph % (Auto) 8.1 L [place] % (Auto) 9.6 Eos % (Auto) 1.7 Baso % (Auto) 0.3 Lymph # (Auto) 1.2 [place] # (Auto) 1.4 H Eos # (Auto) 0.3 Baso # (Auto) 0.1 Abs Immat Gran (auto) 0.06 H Absolute Neuts (auto) 11.6 H Absolute Nucleated RBC 0.000 Nucleated RBC % (auto) 0.0 Sodium 140 Potassium 4.3 Chloride 108 Carbon Dioxide 24 Anion Gap 12 BUN 8 L Creatinine 0.84 Estim Creat Clear Calc 155.8 Estimated GFR > 60 Random Glucose 98 Calcium 10.0 [place] COVID-19 ([facility]) Negative COVID-19 Clin Com See Note 02/04/21 08:12 WBC RBC Hgb Hct MCV MCH MCHC RDW Plt Count MPV Immature Gran % (Auto) Neut % (Auto) Lymph % (Auto) [place] % (Auto) Eos % (Auto) Baso % (Auto) Lymph # (Auto) [place] # (Auto) Eos # (Auto) Baso # (Auto) Abs Immat Gran (auto) Absolute Neuts (auto) Absolute Nucleated RBC Nucleated RBC % (auto) Sodium Potassium Chloride Carbon Dioxide Anion Gap BUN Creatinine Estim Creat Clear Calc Estimated GFR Random Glucose Calcium [place] 0.40 L COVID-19 ([facility]) COVID-19 Clin Com Medications Medications Current Medications Generic Name Dose Route Start Last Admin Trade Name Freq PRN Reason Stop Dose Admin Acetaminophen 650 mg 01/29/21 16:33 01/31/21 12:05 Acetaminophen 325 Mg Tablet PO 650 mg Q6H PRN Administration Headache/Pain Mild Scale (1-3) Al Hydroxide/Mg Hydroxide 30 ml 01/29/21 16:33 Magnesium Hydrox/Alum Hydrox 30 Ml Oral.Susp PO Q6H PRN Heartburn/Nausea Benzocaine 1 lozenge 01/30/21 14:54 02/05/21 02:41 Throat Lozenge, Medicated Lozenge MUCOUS MEM 1 lozenge Q2H PRN Administration Sore Throat Chlorpromazine HCl 25 mg 02/03/21 15:45 02/05/21 08:31 Chlorpromazine Hcl 25 Mg Tablet PO Not Given TID YANI Chlorpromazine HCl 100 mg 02/04/21 19:45 Chlorpromazine Hcl 100 Mg Tablet PO Q6H PRN agitation Hydroxyzine HCl 50 mg 02/03/21 11:03 Hydroxyzine Hcl 25 Mg Tablet PO Q4H PRN Anxiety or congestion Lamotrigine 100 mg 01/29/21 21:00 02/05/21 08:25 Lamotrigine 100 Mg Tablet PO 100 mg BID YANI Administration [place] Carbonate 300 mg 01/30/21 12:00 02/04/21 11:46 [place] Carbonate 300 Mg Capsule PO 300 mg DAILY@1200 YANI Administration [place] Carbonate 600 mg 01/29/21 21:00 02/05/21 08:26 [place] Carbonate 300 Mg Capsule PO 600 mg BID YANI Administration Lorazepam 1 mg 02/03/21 10:25 02/05/21 08:26 Lorazepam 1 Mg Tablet PO 1 mg TID YANI Administration Magnesium Hydroxide 30 ml 01/29/21 16:33 Milk Of Magnesia 30 Ml Oral.Susp PO DAILY PRN Constipation Nicotine Polacrilex 4 mg 01/29/21 16:33 Nicotine Polacrilex 2 Mg Gum BUCCAL Q2H PRN Nicotine Cravings Olanzapine 20 mg 02/01/21 21:00 02/05/21 03:03 Olanzapine 10 Mg Tablet PO 20 mg BEDTIME YANI Administration Oxcarbazepine 750 mg 01/29/21 21:00 02/05/21 08:25 Oxcarbazepine 150 Mg Tablet PO 750 mg BID YANI Administration Trazodone HCl 50 mg 01/29/21 16:33 Trazodone Hcl 50 Mg Tablet PO BEDTIME PRN Insomnia Trazodone HCl 100 mg 02/04/21 21:00 02/04/21 21:32 Trazodone Hcl 100 Mg Tablet PO 100 mg BEDTIME YANI Administration Vitamin D 125 mcg 01/30/21 09:00 02/04/21 08:49 Cholecalciferol (Vitamin D3) 25 Mcg Tablet PO 125 mcg DAILY YANI Administration Allergies Allergies Allergy/AdvReac Type Severity Reaction Status Date / Time fluoxetine AdvReac Severe giuliana Verified 11/13/20 14:20 chlorpromazine AdvReac Intermediate sleep Verified 11/13/20 14:20 [From Thorazine] walking Assessment & Plan Assessment & Plan (1) Bipolar 1 disorder with moderate giuliana: Status: Acute Code(s): F31.12 - Bipolar disorder, current episode manic without psychotic features, moderate Assessment and Plan: Mr. Mcdaniels is a 20 year-old male with hx of Bipolar Disorder type 1, multiple inpt admission due to giuliana and psychosis. He self presented to [facility] initially he wanted to disclose his new revelations. He was admitted due to increase paranoid delusions of ppl hurting children, grandiose delusions related to pt thinking he has special agarwal. Pt presents as labile, explosive at times. We discussed risks, benefits and alternative treatment options. He agrees to continue mood stabilizers but declines trying antipsychotic at this time. PLAN- continue per treatment team - Made Thorazine TID scheduled in addition to his PRN Thorazine. checking lithium level 02/04. added ativan 1 TID for giuliana. 1. Admit to M3 2. Continue current medications 3. Obtain collateral information 4. Aftercare planning Greater than 50% of the session was spent on counseling and/or coordination of care Reason for contiued inpatient stay Substantial Risk for: harm to self, harm to others and inability to function
[2021-02-04] MEDS: Throat Lozenge, Medicated LOZENGE 1 LOZENGE MUCOUS MEM ×2 (09:08→15:12)
[2021-02-04] MEDS: chlorproMAZINE HCl 25 MG TABLET PO ×2 (09:22→15:12)
[2021-02-04] MEDS: Lithium Carbonate 300 MG CAPSULE PO (11:46)
[2021-02-04] MEDS: LORazepam 1 MG TABLET PO (15:12)
--- NOTE | 2021-02-04 19:21 | PC.NURSE ---
Patients radha Hannah took home Pt's ring. All parties aware.
[2021-02-04] MEDS: chlorproMAZINE HCl 25 MG TABLET 50 MG PO (19:28)
[2021-02-04 20:10] VITALS: BP 141/64; PULSE 97; RESP 18; TEMP 36.2; O2SAT 95
[2021-02-04] MEDS: diphenhydrAMINE HCL 50 MG/ML VIAL 100 MG IM (20:50)
[2021-02-04] MEDS: OLANZapine 10 MG VIAL IM (20:50)
[2021-02-04] MEDS: traZODone HCL 100 MG TABLET PO (21:32)
--- NOTE | 2021-02-04 22:19 | PM.EVENT ---
Event Note Date of Service: 02/04/21 Event Note: Agitation: Patient became agitated and violent around 9:00 p.m. on 02/04/2021.; [id number] evaluation was done. Patient denied any complaints. Spoke to the RN for frequent reorientation.
--- NOTE | 2021-02-04 23:06 | PC.NURSE ---
Gino became upset around 1929 because he wanted to go out on a fresh air break and was told that he could not because the last fresh air break he was on he attempted to escape. Patient became upset and began to through items in his room. Security was called and they came up to talk with the patient. Gino took 50 mg Thorazine PO prn. Patient began to calm down when talking with security and was able to remain in behavioral control. Gino came out of his room and was walking the hallways with the 1:1 staff. Security was still on the unit watching patient. Patient that began to kick the exit door and was able to jar one of the locked doors open and he was able to escape the unit. Security chased after Gino and he was placed in a therapeutic holdat 2034. The restraint chair was brought out to them and patient was placed in the chair. Patient was then placed in the quiet room in the chair. Patient was still agitated at this point and was pulling on restraints. Patient given IM Zyprexa 10 mg in his left deltoid and IM Benadryl 100mg to his right deltoid. Dr. Olga MD came to the unit and had a consult with Gino while in the restraint chair. Patient remained in quiet room in the seclusion chair until 2124, patient was wheeled to his room and taken out of the restraint chair at 2129. Patient reported no injuries.
[2021-02-05] MEDS: Throat Lozenge, Medicated LOZENGE 1 LOZENGE MUCOUS MEM ×3 (02:41→15:04)
[2021-02-05] MEDS: OLANZapine 10 MG TABLET 20 MG PO ×2 (03:03→20:32)
[2021-02-05] MEDS: chlorproMAZINE HCl 25 MG TABLET PO (03:03)
[2021-02-05] MEDS: lamoTRIgine 100 MG TABLET PO ×2 (08:25→20:30)
[2021-02-05] MEDS: OXcarbazepine 150 MG TABLET 750 MG PO (08:25)
[2021-02-05] MEDS: Lithium Carbonate 300 MG CAPSULE 600 MG PO (08:26)
[2021-02-05] MEDS: LORazepam 1 MG TABLET PO ×3 (08:26→20:30)
[2021-02-05] MEDS: Cholecalciferol (Vitamin D3) 25 MCG TABLET 125 MCG PO (10:50)
--- NOTE | 2021-02-05 11:09 | P.PNPSI_ITS ---
Subjective Subjective Date of Service: 02/05/21 Reason For Visit: manic, hallucinating Interim History: pt states he does not like thorazine and will not take it. he does think zyprexa is OK. his low lithium level is explained and he is encouraged to accept a higher dose, which he declines. he once again declines VPA or tegretol without explanation. he states his medications are fine and he doesn't need any changes. reiterates the need for better giuliana control and tells him he is in a manic epsiode. pt states he is not in a manic episode and this conversation is over. he then exits the interview room. per staff, pt on 1:1. pacing, napping yesterday. 2 fresh air breaks but didn't want to come in, otherwise cooperative. took all scheduled meds aside from thorazine. 7:20 last NOC broke through doors and was restrained by security, put in restraint chair, medicated. slept until 0300. took HS meds at 0300. Mental Status Exam Mental Status Exam Narrative: appropriately dressed and groomed. cooperative for a time. no PMA/PMR. speech rapid, nml amount, decr latency, normal loudness. thoughts linear and illogical. affect blunted at rest but labile and hyper-intense in reaction to information he does not want to hear. no SI/HI/AVH expressed. Diagnostics Vital Signs (24Hr): Vital Signs - 24 hr 02/04/21 20:10 Temperature 97.2 F Pulse Rate 97 Respiratory Rate 18 Blood Pressure 141/64 H Pulse Oximetry 95 Body Mass Index 25.6 Labs Results: 02/04/21 08:12 02/04/21 08:12 Labs: Laboratory Results - last 48 hr 02/03/21 02/04/21 02/04/21 13:44 08:12 08:12 WBC 14.5 H RBC 5.04 Hgb 14.4 Hct 44.0 MCV 87.3 MCH 28.6 MCHC 32.7 RDW 13.2 Plt Count 243 MPV 11.8 Immature Gran % (Auto) 0.4 Neut % (Auto) 79.9 H Lymph % (Auto) 8.1 L [place] % (Auto) 9.6 Eos % (Auto) 1.7 Baso % (Auto) 0.3 Lymph # (Auto) 1.2 [place] # (Auto) 1.4 H Eos # (Auto) 0.3 Baso # (Auto) 0.1 Abs Immat Gran (auto) 0.06 H Absolute Neuts (auto) 11.6 H Absolute Nucleated RBC 0.000 Nucleated RBC % (auto) 0.0 Sodium 140 Potassium 4.3 Chloride 108 Carbon Dioxide 24 Anion Gap 12 BUN 8 L Creatinine 0.84 Estim Creat Clear Calc 155.8 Estimated GFR > 60 Random Glucose 98 Calcium 10.0 [place] COVID-19 ([facility]) Negative COVID-19 Clin Com See Note 02/04/21 08:12 WBC RBC Hgb Hct MCV MCH MCHC RDW Plt Count MPV Immature Gran % (Auto) Neut % (Auto) Lymph % (Auto) [place] % (Auto) Eos % (Auto) Baso % (Auto) Lymph # (Auto) [place] # (Auto) Eos # (Auto) Baso # (Auto) Abs Immat Gran (auto) Absolute Neuts (auto) Absolute Nucleated RBC Nucleated RBC % (auto) Sodium Potassium Chloride Carbon Dioxide Anion Gap BUN Creatinine Estim Creat Clear Calc Estimated GFR Random Glucose Calcium [place] 0.40 L COVID-19 ([facility]) COVID-19 Clin Com Medications Medications Current Medications Generic Name Dose Route Start Last Admin Trade Name Freq PRN Reason Stop Dose Admin Acetaminophen 650 mg 01/29/21 16:33 01/31/21 12:05 Acetaminophen 325 Mg Tablet PO 650 mg Q6H PRN Administration Headache/Pain Mild Scale (1-3) Al Hydroxide/Mg Hydroxide 30 ml 01/29/21 16:33 Magnesium Hydrox/Alum Hydrox 30 Ml Oral.Susp PO Q6H PRN Heartburn/Nausea Benzocaine 1 lozenge 01/30/21 14:54 02/05/21 02:41 Throat Lozenge, Medicated Lozenge MUCOUS MEM 1 lozenge Q2H PRN Administration Sore Throat Chlorpromazine HCl 25 mg 02/03/21 15:45 02/05/21 08:31 Chlorpromazine Hcl 25 Mg Tablet PO Not Given TID YANI Chlorpromazine HCl 100 mg 02/04/21 19:45 Chlorpromazine Hcl 100 Mg Tablet PO Q6H PRN agitation Hydroxyzine HCl 50 mg 02/03/21 11:03 Hydroxyzine Hcl 25 Mg Tablet PO Q4H PRN Anxiety or congestion Lamotrigine 100 mg 01/29/21 21:00 02/05/21 08:25 Lamotrigine 100 Mg Tablet PO 100 mg BID YANI Administration [place] Carbonate 300 mg 01/30/21 12:00 02/04/21 11:46 [place] Carbonate 300 Mg Capsule PO 300 mg DAILY@1200 YANI Administration [place] Carbonate 600 mg 01/29/21 21:00 02/05/21 08:26 [place] Carbonate 300 Mg Capsule PO 600 mg BID YANI Administration Lorazepam 1 mg 02/03/21 10:25 02/05/21 08:26 Lorazepam 1 Mg Tablet PO 1 mg TID YANI Administration Magnesium Hydroxide 30 ml 01/29/21 16:33 Milk Of Magnesia 30 Ml Oral.Susp PO DAILY PRN Constipation Nicotine Polacrilex 4 mg 01/29/21 16:33 Nicotine Polacrilex 2 Mg Gum BUCCAL Q2H PRN Nicotine Cravings Olanzapine 20 mg 02/01/21 21:00 02/05/21 03:03 Olanzapine 10 Mg Tablet PO 20 mg BEDTIME YANI Administration Oxcarbazepine 750 mg 01/29/21 21:00 02/05/21 08:25 Oxcarbazepine 150 Mg Tablet PO 750 mg BID YANI Administration Trazodone HCl 50 mg 01/29/21 16:33 Trazodone Hcl 50 Mg Tablet PO BEDTIME PRN Insomnia Trazodone HCl 100 mg 02/04/21 21:00 02/04/21 21:32 Trazodone Hcl 100 Mg Tablet PO 100 mg BEDTIME YANI Administration Vitamin D 125 mcg 01/30/21 09:00 02/05/21 10:50 Cholecalciferol (Vitamin D3) 25 Mcg Tablet PO 125 mcg DAILY YANI Administration Allergies Allergies Allergy/AdvReac Type Severity Reaction Status Date / Time fluoxetine AdvReac Severe giuliana Verified 11/13/20 14:20 chlorpromazine AdvReac Intermediate sleep Verified 11/13/20 14:20 [From Thorazine] walking Assessment & Plan Assessment & Plan (1) Bipolar 1 disorder with moderate giuliana: Status: Acute Code(s): F31.12 - Bipolar disorder, current episode manic without psychotic features, moderate Assessment and Plan: Mr. Mcdaniels is a 20 year-old male with hx of Bipolar Disorder type 1, multiple inpt admission due to giuliana and psychosis. He self [place] [facility] [place] he wanted to disclose his new revelations. He was admitted due to increase paranoid delusions of ppl hurting children, grandiose delusions related to pt thinking he has special agarwal. Pt presents as labile, explosive at times. We discussed risks, benefits and alternative treatment options. He agrees to continue mood stabilizers but declines trying antipsychotic at this time. Made Thorazine TID scheduled 02/03 in addition to his PRN Thorazine. added ativan 1 TID 02/03 for giuliana. lithium level subtherapeutic at 0.4 on 02/04. pt refusing to increase lithium or start VPA or tegretol. lithium dosing increased by 600 mg daily as of 02/05, trileptal dosing increased by 500 mg daily. 3-day submitted 02/05 - will file for commitment and medications in all likelihood, especially if he declines med changes made 02/05. Greater than 50% of the session was spent on counseling and/or coordination of care Reason for contiued inpatient stay Substantial Risk for: harm to others and inability to function
[2021-02-05] MEDS: Lithium Carbonate 300 MG CAPSULE PO (12:47)
[2021-02-05 13:00] VITALS: BP 143/91; PULSE 104; RESP 16; TEMP 36.4; O2SAT 98
--- NOTE | 2021-02-05 17:58 | PC.NURSE ---
Patient submitted 3 day note 1031 am.
[2021-02-05] MEDS: OXcarbazepine 150 MG TABLET 1000 MG PO (20:28)
[2021-02-05] MEDS: traZODone HCL 100 MG TABLET PO (20:43)
[2021-02-05 20:51] VITALS: BP 138/81; PULSE 90; TEMP 36.8; O2SAT 95
[2021-02-05] MEDS: Lithium Carbonate 300 MG CAPSULE 900 MG PO (21:12)
[2021-02-06] MEDS: Throat Lozenge, Medicated LOZENGE 1 LOZENGE MUCOUS MEM ×2 (02:40→21:33)
[2021-02-06 06:00] VITALS: BP 129/70; PULSE 89; RESP 20; TEMP 36.8; O2SAT 98
[2021-02-06] MEDS: chlorproMAZINE HCl 25 MG TABLET PO (08:10)
[2021-02-06] MEDS: LORazepam 1 MG TABLET PO ×3 (08:11→20:18)
[2021-02-06] MEDS: Cholecalciferol (Vitamin D3) 25 MCG TABLET 125 MCG PO (08:11)
[2021-02-06] MEDS: lamoTRIgine 100 MG TABLET PO ×2 (08:11→20:21)
[2021-02-06] MEDS: OXcarbazepine 150 MG TABLET 1000 MG PO ×2 (08:22→20:26)
[2021-02-06] MEDS: Lithium Carbonate 300 MG CAPSULE 900 MG PO (08:23)
--- NOTE | 2021-02-06 12:07 | HO.PSYCHPN ---
Subjective Subjective Date of Service: 02/06/21 Reason For Visit: manic, hallucinating Interim History: pt found walking the halls. agreeable to interview. denies giuliana, stats he will not take more trileptal or lithium. states he is not taking the thorazine because it is oversedating and gives him dry mouth. he declines to take a low dose of zyprexa TID instead. he states it is normal for him to sleep 2-3 hours at a time. MD informs him of the arrival of his fish oil. he proposes taking zyprexa 10 mg at bedtime and 10 mg with lithium midday. MD agrees to the proposal, but expresses concern for his sleep. he downplays the concern. he then asks about the dose increase for trileptal - verifies it went from 750 to 1000 mg per dose. he asks if MD thinks it would be helpful for him and MD indicates yes. he agrees to take the elevated dose of trileptal. MD verifies he will not take the elevated dose of lithium and pt states he will not. MD agrees to reduce the order once again to previous dosing. Mental Status Exam Mental Status Exam Narrative: appropriately dressed and groomed. cooperative. no PMA/PMR. speech nml rate, amount, latency, loudness. thoughts linear and largely logical. affect blunted, non-labile. no SI/HI/AVH expressed. Diagnostics Vital Signs (24Hr): Vital Signs - 24 hr 02/05/21 13:00 02/05/21 20:51 02/06/21 06:00 Temperature 97.6 F 98.3 F 98.2 F Pulse Rate 104 H 90 89 Respiratory Rate 16 20 Blood Pressure 143/91 H 138/81 129/70 Pulse Oximetry 98 95 98 Body Mass Index 25.6 Labs Results: 02/04/21 08:12 02/04/21 08:12 Medications Medications Current Medications Generic Name Dose Route Start Last Admin Trade Name Freq PRN Reason Stop Dose Admin Acetaminophen 650 mg 01/29/21 16:33 01/31/21 12:05 Acetaminophen 325 Mg Tablet PO 650 mg Q6H PRN Administration Headache/Pain Mild Scale (1-3) Al Hydroxide/Mg Hydroxide 30 ml 01/29/21 16:33 Magnesium Hydrox/Alum Hydrox 30 Ml Oral.Susp PO Q6H PRN Heartburn/Nausea Benzocaine 1 lozenge 01/30/21 14:54 02/06/21 02:40 Throat Lozenge, Medicated Lozenge MUCOUS MEM 1 lozenge Q2H PRN Administration Sore Throat Chlorpromazine HCl 100 mg 02/04/21 19:45 Chlorpromazine Hcl 100 Mg Tablet PO Q6H PRN agitation Hydroxyzine HCl 50 mg 02/03/21 11:03 Hydroxyzine Hcl 25 Mg Tablet PO Q4H PRN Anxiety or congestion Lamotrigine 100 mg 01/29/21 21:00 02/06/21 08:11 Lamotrigine 100 Mg Tablet PO 100 mg BID YANI Administration [place] Carbonate 300 mg 01/30/21 12:00 02/05/21 12:47 [place] Carbonate 300 Mg Capsule PO 300 mg DAILY@1200 YANI Administration [place] Carbonate 600 mg 02/06/21 21:00 [place] Carbonate 300 Mg Capsule PO BID YANI Lorazepam 1 mg 02/03/21 10:25 02/06/21 08:11 Lorazepam 1 Mg Tablet PO 1 mg TID YANI Administration Magnesium Hydroxide 30 ml 01/29/21 16:33 Milk Of Magnesia 30 Ml Oral.Susp PO DAILY PRN Constipation Nicotine Polacrilex 4 mg 01/29/21 16:33 Nicotine Polacrilex 2 Mg Gum BUCCAL Q2H PRN Nicotine Cravings Olanzapine 10 mg 02/06/21 21:00 Olanzapine 10 Mg Tablet PO BID [facility] Oxcarbazepine 1,000 mg 02/05/21 21:00 02/06/21 08:22 Oxcarbazepine 150 Mg Tablet PO 750 mg BID YANI Administration Trazodone HCl 50 mg 01/29/21 16:33 Trazodone Hcl 50 Mg Tablet PO BEDTIME PRN Insomnia Trazodone HCl 100 mg 02/04/21 21:00 02/05/21 20:43 Trazodone Hcl 100 Mg Tablet PO 100 mg BEDTIME YANI Administration Vitamin D 125 mcg 01/30/21 09:00 02/06/21 08:11 Cholecalciferol (Vitamin D3) 25 Mcg Tablet PO 125 mcg DAILY YANI Administration Allergies Allergies Allergy/AdvReac Type Severity Reaction Status Date / Time fluoxetine AdvReac Severe giuliana Verified 11/13/20 14:20 chlorpromazine AdvReac Intermediate sleep Verified 11/13/20 14:20 [From Thorazine] walking Assessment & Plan Assessment & Plan (1) Bipolar 1 disorder with moderate giuliana: Status: Acute Code(s): F31.12 - Bipolar disorder, current episode manic without psychotic features, moderate Assessment and Plan: Mr. Mcdaniels is a 20 year-old male with hx of Bipolar Disorder type 1, multiple inpt admission due to giuliana and psychosis. He self presented to [facility] [place] initially he wanted to disclose his new revelations. He was admitted due to increase paranoid delusions of ppl hurting children, grandiose delusions related to pt thinking he has special agarwal. Pt presents as labile, explosive at times. We discussed risks, benefits and alternative treatment options. He agrees to continue mood stabilizers but declines trying antipsychotic at this time. Made Thorazine TID scheduled 02/03 in addition to his PRN Thorazine; scheduled thorazine DCed 02/06 at patient request. added ativan 1 TID 02/03 for giuliana. lithium level subtherapeutic at 0.4 on 02/04. pt refusing to increase lithium or start VPA or tegretol. trileptal dosing increased by 500 mg daily as of 02/06. 3-day submitted 02/05. Greater than 50% of the session was spent on counseling and/or coordination of care Reason for contiued inpatient stay Substantial Risk for: inability to function and rapid decompensation
[2021-02-06] MEDS: Lithium Carbonate 300 MG CAPSULE PO (12:34)
--- NOTE | 2021-02-06 16:24 | PC.NURSE ---
Patient refusing Thorazine, refused increase in [place] and Trileptal this morning stating he was unaware of increase. Dr. Turner notified. Patient reported meeting with MD was better today, discussed medication regime.
--- NOTE | 2021-02-06 16:26 | PC.NURSE ---
Patient reported to me at this time that he fell on his right wrist in the pod several days ago prior to admission to [facility] (fell back and broke his fall by putting hand down.) He has full ROM but he reports 6/10 pain during ROM movements. Patient requests x ray of wrist to assess for fracture. Dr Turner informed.
[2021-02-06 18:00] VITALS: BP 145/71; PULSE 98; RESP 16; TEMP 36.7; O2SAT 97
[2021-02-06] MEDS: traZODone HCL 100 MG TABLET PO (20:21)
[2021-02-06] MEDS: OLANZapine 10 MG TABLET PO (20:21)
[2021-02-06] MEDS: Lithium Carbonate 300 MG CAPSULE 600 MG PO (20:21)
[2021-02-07] MEDS: lamoTRIgine 100 MG TABLET PO ×2 (08:12→20:30)
[2021-02-07] MEDS: OXcarbazepine 150 MG TABLET 1000 MG PO (08:12)
[2021-02-07] MEDS: Lithium Carbonate 300 MG CAPSULE 600 MG PO ×2 (08:12→20:30)
[2021-02-07] MEDS: LORazepam 1 MG TABLET PO ×3 (08:13→20:30)
[2021-02-07 08:28] VITALS: BP 140/96; PULSE 96; TEMP 36.6; O2SAT 97
[2021-02-07] MEDS: Cholecalciferol (Vitamin D3) 25 MCG TABLET 125 MCG PO (10:03)
[2021-02-07] MEDS: Throat Lozenge, Medicated LOZENGE 1 LOZENGE MUCOUS MEM (10:03)
--- NOTE | 2021-02-07 11:26 | HO.PSYCHPN ---
Subjective Subjective Date of Service: 02/07/21 Reason For Visit: manic, hallucinating Interim History: pt states he will not take a higher trileptal dose after all and did not take the higher dose last night. he feels he does not need it, that his mood is fine. as pt does appear to be improving, MD accepts pt's preference and decreases the dosing back to 750 BID. in addition, pt asks that he have all 20 mg of zyprexa at HS, with which MD also agrees. these changes essentially reinstate the status quo ante prior to yesterday. pt states that if things start to get out of control he will take more trileptal. also, if he continues to feel well he will not rescind his 3-day notice but if things do take a turn for the worse he will rescind it to remain in treatment longer. acknowledges the plan and that if nothing changes a decision will have to be made wednesday on whether or not to file for commitment or to discharge. per staff, pt eating and sleeping well - slept 11 p to 6 am last night. went outside x1. c/o some anxiety on eves. mood improved after visit with mother. xray of wrist NEG. Mental Status Exam Mental Status Exam Narrative: appropriately dressed and groomed. cooperative. no PMA/PMR. speech nml rate, amount, latency, loudness. thoughts linear and largely logical. affect blunted, non-labile. no SI/HI/AVH expressed. Diagnostics Vital Signs (24Hr): Vital Signs - 24 hr 02/06/21 18:00 02/07/21 08:28 Temperature 98.0 F 98 F Pulse Rate 98 96 Respiratory Rate 16 Blood Pressure 145/71 H 140/96 H Pulse Oximetry 97 97 Body Mass Index 25.6 Labs Results: 02/04/21 08:12 02/04/21 08:12 Imaging Radiology Impressions: ITS Impressions Wrist X-Ray 02/06/21 16:33 IMPRESSION: Normal right wrist. Medications Medications Current Medications Acetaminophen (Acetaminophen 325 Mg Tablet) 650 mg PO Q6H PRN PRN Reason: Headache/Pain Mild Scale (1-3) Last Admin: 01/31/21 12:05 Dose: 650 mg Documented by: Al Hydroxide/Mg Hydroxide (Magnesium Hydrox/Alum Hydrox 30 Ml Oral.Susp) 30 ml PO Q6H PRN PRN Reason: Heartburn/Nausea Benzocaine (Throat Lozenge, Medicated Lozenge) 1 lozenge MUCOUS MEM Q2H PRN PRN Reason: Sore Throat Last Admin: 02/07/21 10:03 Dose: 1 lozenge Documented by: Chlorpromazine HCl (Chlorpromazine Hcl 100 Mg Tablet) 100 mg PO Q6H PRN PRN Reason: agitation Hydroxyzine HCl (Hydroxyzine Hcl 25 Mg Tablet) 50 mg PO Q4H PRN PRN Reason: Anxiety or congestion Lamotrigine (Lamotrigine 100 Mg Tablet) 100 mg PO BID [facility] Last Admin: 02/07/21 08:12 Dose: 100 mg Documented by: [place] Carbonate ([place] Carbonate 300 Mg Capsule) 300 mg PO DAILY@1200 [facility] Last Admin: 02/06/21 12:34 Dose: 300 mg Documented by: [place] Carbonate ([place] Carbonate 300 Mg Capsule) 600 mg PO BID [facility] Last Admin: 02/07/21 08:12 Dose: 600 mg Documented by: Lorazepam (Lorazepam 1 Mg Tablet) 1 mg PO TID [facility] Last Admin: 02/07/21 08:13 Dose: 1 mg Documented by: Magnesium Hydroxide (Milk Of Magnesia 30 Ml Oral.Susp) 30 ml PO DAILY PRN PRN Reason: Constipation Nicotine Polacrilex (Nicotine Polacrilex 2 Mg Gum) 4 mg BUCCAL Q2H PRN PRN Reason: Nicotine Cravings Olanzapine (Olanzapine 10 Mg Tablet) 20 mg PO BEDTIME [facility] Oxcarbazepine (Oxcarbazepine 150 Mg Tablet) 750 mg PO BID [facility] Trazodone HCl (Trazodone Hcl 50 Mg Tablet) 50 mg PO BEDTIME PRN PRN Reason: Insomnia Trazodone HCl (Trazodone Hcl 100 Mg Tablet) 100 mg PO BEDTIME [facility] Last Admin: 02/06/21 20:21 Dose: 100 mg Documented by: Vitamin D (Cholecalciferol (Vitamin D3) 25 Mcg Tablet) 125 mcg PO DAILY [facility] Last Admin: 02/07/21 10:03 Dose: 125 mcg Documented by: Allergies Allergies Allergy/AdvReac Type Severity Reaction Status Date / Time fluoxetine AdvReac Severe giuliana Verified 11/13/20 14:20 chlorpromazine AdvReac Intermediate sleep Verified 11/13/20 14:20 [From Thorazine] walking Assessment & Plan Assessment & Plan (1) Bipolar 1 disorder with moderate giuliana: Status: Acute Code(s): F31.12 - Bipolar disorder, current episode manic without psychotic features, moderate Assessment and Plan: Mr. Mcdaniels is a 20 year-old male with hx of Bipolar Disorder type 1, multiple inpt admission due to giuliana and psychosis. [place] [facility] [place] he wanted to disclose his new revelations. He was admitted due to increase paranoid delusions of ppl hurting children, grandiose delusions related to pt thinking he has special agarwal. Pt presents as labile, explosive at times. We discussed risks, benefits and alternative treatment options. He agreed to start zyprexa 20 mg at bedtime. such addition, in conjunction with ativan 1 mg TID and trazodone 100 QHS, has been helpful to begin to break the giuliana as of 02/06. Made Thorazine TID scheduled 02/03 in addition to his PRN Thorazine; scheduled thorazine DCed 02/06 at patient request. added ativan 1 TID 02/03 for giuliana. lithium level subtherapeutic at 0.4 on 02/04. pt refusing to increase lithium or start VPA or tegretol or increase trileptal dosing. 3-day submitted 02/05. Greater than 50% of the session was spent on counseling and/or coordination of care Reason for contiued inpatient stay Substantial Risk for: inability to function and rapid decompensation
[2021-02-07] MEDS: Lithium Carbonate 300 MG CAPSULE PO (14:20)
[2021-02-07] MEDS: Acetaminophen 325 MG TABLET 650 MG PO (15:07)
[2021-02-07 18:00] VITALS: BP 146/72; PULSE 94; RESP 16; TEMP 36.8; O2SAT 94
[2021-02-07] MEDS: OXcarbazepine 150 MG TABLET 750 MG PO (20:29)
[2021-02-07] MEDS: OLANZapine 10 MG TABLET 20 MG PO (20:29)
[2021-02-07] MEDS: traZODone HCL 100 MG TABLET PO (20:30)
[2021-02-08] MEDS: Throat Lozenge, Medicated LOZENGE 1 LOZENGE MUCOUS MEM (01:06)
--- NOTE | 2021-02-08 08:10 | P.PNPSI_ITS ---
Subjective Subjective Date of Service: 02/09/21 Reason For Visit: manic, hallucinating Interim History: 02/07:pt states he will not take a higher trileptal dose after all and did not take the higher dose last night. he feels he does not need it, that his mood is fine. as pt does appear to be improving, MD accepts pt's preference and decreases the dosing back to 750 BID. in addition, pt asks that he have all 20 mg of zyprexa at HS, with which MD also agrees. these changes essentially reinstate the status quo ante prior to yesterday. pt states that if things start to get out of control he will take more trileptal. also, if he continues to feel well he will not rescind his 3-day notice but if things do take a turn for the worse he will rescind it to remain in treatment longer. acknowledges the plan and that if nothing changes a decision will have to be made wednesday on whether or not to file for commitment or to discharge. per staff, pt eating and sleeping well - slept 11 p to 6 am last night. went outside x1. c/o some anxiety on eves. mood improved after visit with mother. xray of wrist NEG. 02/08: Reports he is doing better. Denies PI/manic Sx but has POS and FOI. No dyscontrol. Much discussion re 3 day notice withdrawal or not. Remains on 1:1 Medication Compliance: Yes Side effects from medications: No Review of Systems Acute medical concerns: No Review of Systems Constitutional: Denies chills, Denies fever(s), Denies headache(s), Denies snoring, Denies weight gain and Denies weight loss Eyes: Reports no additional eye complaints, Denies blurry vision and Denies diplopia Reports Normal hearing present, Denies dizziness, Denies headache(s) and Denies sore throat Cardiovascular: Denies chest pain, Denies chest pain at rest, Denies chest pain with activity, Denies syncope, Denies rapid heart rate, Denies lightheadedness and Denies dyspnea Respiratory: Denies chest congestion, Denies cough, Denies dyspnea and Denies sn oring Gastrointestinal: Denies nausea and Denies vomiting Musculoskeletal: Denies myalgias and Denies numbness Skin/Breast: Denies rash Reports Normal hearing present, Reports behavioral changes, Reports confusion, Denies dizziness, Denies syncope, Denies headache(s), Denies numbness, Denies restless legs, Denies convulsions and Denies seizure-like activity Psychiatric: Reports abnormal sleep pattern, Reports anxiety, Reports behavioral changes, Reports change in appetite, Reports confusion, Reports depression, Reports difficulty concentrating, Reports auditory hallucinations, Reports irritability, Reports anhedonia, Reports mood swings, Reports paranoia, Reports visual hallucinations, Reports hallucinations and Reports suicidal ideation (denies) Mental Status Exam Mental Status Exam Narrative: appropriately dressed and groomed. cooperative. no PMA/PMR. speech nml rate, amount, latency, loudness. thoughts linear and largely logical. affect blunted, non-labile. no SI/HI/AVH expressed. Patient Appearance: Disheveled Patient Orientation: Person, Place and Time Level of Consciousness: Awake and Alert Patient Behavior: Talkative, Hyperactive, Aggressive, Restless, Distractible, Good Eye Contact, Impulsive and Pacing Mood Description: Labile, Nervous and Expansive Affect Description: Labile, Angry and Expansive Patient Cognition Impaired: Yes Ability to Follow Directions: Good Speech Pattern: Spontaneous Speech, Rambling, Soft-Spoken, Cofabulation (confabulation), Rapid, Excessive, Pressured and Excited Memory Description: Remote Impaired and Episodic Impaired Diagnostics Vital Signs (24Hr): Vital Signs - 24 hr 02/07/21 08:28 02/07/21 18:00 Temperature 98 F 98.2 F Pulse Rate 96 94 Respiratory Rate 16 Blood Pressure 140/96 H 146/72 H Pulse Oximetry 97 94 Body Mass Index 25.6 Labs Results: 02/04/21 08:12 02/04/21 08:12 Imaging Radiology Impressions: ITS Impressions Wrist X-Ray 02/06/21 16:33 IMPRESSION: Normal right wrist. Medications Medications Current Medications Acetaminophen (Acetaminophen 325 Mg Tablet) 650 mg PO Q6H PRN PRN Reason: Headache/Pain Mild Scale (1-3) Last Admin: 02/07/21 15:07 Dose: 650 mg Documented by: Al Hydroxide/Mg Hydroxide (Magnesium Hydrox/Alum Hydrox 30 Ml Oral.Susp) 30 ml PO Q6H PRN PRN Reason: Heartburn/Nausea Benzocaine (Throat Lozenge, Medicated Lozenge) 1 lozenge MUCOUS MEM Q2H PRN PRN Reason: Sore Throat Last Admin: 02/08/21 01:06 Dose: 1 lozenge Documented by: Chlorpromazine HCl (Chlorpromazine Hcl 100 Mg Tablet) 100 mg PO Q6H PRN PRN Reason: agitation Hydroxyzine HCl (Hydroxyzine Hcl 25 Mg Tablet) 50 mg PO Q4H PRN PRN Reason: Anxiety or congestion Lamotrigine (Lamotrigine 100 Mg Tablet) 100 mg PO BID [facility] Last Admin: 02/07/21 20:30 Dose: 100 mg Documented by: Blue Eye Carbonate (Blue Eye Carbonate 300 Mg Capsule) 300 mg PO DAILY@1200 [facility] Last Admin: 02/07/21 14:20 Dose: 300 mg Documented by: Blue Eye Carbonate (Blue Eye Carbonate 300 Mg Capsule) 600 mg PO BID [facility] Last Admin: 02/07/21 20:30 Dose: 600 mg Documented by: Lorazepam (Lorazepam 1 Mg Tablet) 1 mg PO TID [facility] Last Admin: 02/07/21 20:30 Dose: 1 mg Documented by: Magnesium Hydroxide (Milk Of Magnesia 30 Ml Oral.Susp) 30 ml PO DAILY PRN PRN Reason: Constipation Nicotine Polacrilex (Nicotine Polacrilex 2 Mg Gum) 4 mg BUCCAL Q2H PRN PRN Reason: Nicotine Cravings Olanzapine (Olanzapine 10 Mg Tablet) 20 mg PO BEDTIME [facility] Last Admin: 02/07/21 20:29 Dose: 20 mg Documented by: Oxcarbazepine (Oxcarbazepine 150 Mg Tablet) 750 mg PO BID [facility] Last Admin: 02/07/21 20:29 Dose: 750 mg Documented by: Trazodone HCl (Trazodone Hcl 50 Mg Tablet) 50 mg PO BEDTIME PRN PRN Reason: Insomnia Trazodone HCl (Trazodone Hcl 100 Mg Tablet) 100 mg PO BEDTIME [facility] Last Admin: 02/07/21 20:30 Dose: 100 mg Documented by: Vitamin D (Cholecalciferol (Vitamin D3) 25 Mcg Tablet) 125 mcg PO DAILY [facility] Last Admin: 02/07/21 10:03 Dose: 125 mcg Documented by: Allergies Allergies Allergy/AdvReac Type Severity Reaction Status Date / Time fluoxetine AdvReac Severe giuliana Verified 11/13/20 14:20 chlorpromazine AdvReac Intermediate sleep Verified 11/13/20 14:20 [From Thorazine] walking Assessment & Plan Assessment & Plan (1) Bipolar 1 disorder with moderate giuliana: Status: Acute Code(s): F31.12 - Bipolar disorder, current episode manic without psychotic features, moderate Assessment and Plan: Mr. Mcdaniels is a 20 year-old male with hx of Bipolar Disorder type 1, multiple inpt admission due to giuliana and psychosis. He self presented to [facility] [place] initially he wanted to disclose his new revelations. He was admitted due to increase paranoid delusions of ppl hurting children, grandiose delusions related to pt thinking he has special agarwal. Pt presents as labile, explosive at times. We discussed risks, benefits and alternative treatment options. He agreed to start zyprexa 20 mg at bedtime. such addition, in conjunction with ativan 1 mg TID and trazodone 100 QHS, has been helpful to begin to break the giuliana as of 02/06. 02/07:Made Thorazine TID scheduled 02/03 in addition to his PRN Thorazine; scheduled thorazine DCed 02/06 at patient request. added ativan 1 TID 02/03 for giuliana. lithium level subtherapeutic at 0.4 on 02/04. pt refusing to increase lithium or start VPA or tegretol or increase trileptal dosing. 3-day submitted 02/05. 02/08: Ct Rx plan. No med changes. Review 3 day notice on Mon. Greater than 50% of the session was spent on counseling and/or coordination of care Patient educated on: diagnosis and medication risk/benefits Reason for contiued inpatient stay Substantial Risk for: rapid decompensation
[2021-02-08] MEDS: Cholecalciferol (Vitamin D3) 25 MCG TABLET 125 MCG PO (09:51)
[2021-02-08] MEDS: LORazepam 1 MG TABLET PO ×3 (09:52→20:48)
[2021-02-08] MEDS: OXcarbazepine 150 MG TABLET 750 MG PO ×2 (09:52→20:47)
[2021-02-08] MEDS: Lithium Carbonate 300 MG CAPSULE 600 MG PO ×2 (09:52→20:48)
[2021-02-08] MEDS: lamoTRIgine 100 MG TABLET PO ×2 (09:53→20:47)
[2021-02-08] MEDS: Lithium Carbonate 300 MG CAPSULE PO (11:51)
[2021-02-08 18:00] VITALS: BP 152/70; PULSE 95; RESP 18; TEMP 36.8; O2SAT 95
[2021-02-08] MEDS: OLANZapine 10 MG TABLET 20 MG PO (20:47)
[2021-02-09] MEDS: Throat Lozenge, Medicated LOZENGE 1 LOZENGE MUCOUS MEM (04:27)
--- NOTE | 2021-02-09 07:43 | HO.PSYCHPN ---
Subjective Subjective Date of Service: 02/09/21 Reason For Visit: manic, hallucinating Interim History: 02/07:pt states he will not take a higher trileptal dose after all and did not take the higher dose last night. he feels he does not need it, that his mood is fine. as pt does appear to be improving, MD accepts pt's preference and decreases the dosing back to 750 BID. in addition, pt asks that he have all 20 mg of zyprexa at HS, with which MD also agrees. these changes essentially reinstate the status quo ante prior to yesterday. pt states that if things start to get out of control he will take more trileptal. also, if he continues to feel well he will not rescind his 3-day notice but if things do take a turn for the worse he will rescind it to remain in treatment longer. acknowledges the plan and that if nothing changes a decision will have to be made wednesday on whether or not to file for commitment or to discharge. per staff, pt eating and sleeping well - slept 11 p to 6 am last night. went outside x1. c/o some anxiety on eves. mood improved after visit with mother. xray of wrist NEG. 02/08: Reports he is doing better. Denies PI/manic Sx but has POS and FOI. No dyscontrol. Much discussion re 3 day notice withdrawal or not. Remains on 1:1 02/09: Remains on 1:1. POS but logical and rational. Denies PI/dyscontrol. Staff report no incidents. Medication Compliance: Yes Side effects from medications: No Attending Groups: Yes Review of Systems Acute medical concerns: No Review of Systems Constitutional: Denies chills, Denies fever(s), Denies headache(s), Denies snoring, Denies weight gain and Denies weight loss Eyes: Reports no additional eye complaints, Denies blurry vision and Denies diplopia Reports Normal hearing present, Denies dizziness, Denies headache(s) and Denies sore throat Cardiovascular: Denies chest pain, Denies chest pain at rest, Denies chest pain with activity, Denies syncope, Denies rapid heart rate, Denies lightheadedness and Denies dyspnea Respiratory: Denies chest congestion, Denies cough, Denies dyspnea and Denies snoring Gastrointestinal: Denies nausea and Denies vomiting Musculoskeletal: Denies myalgias and Denies numbness Skin/Breast: Denies rash Reports Normal hearing present, Reports behavioral changes, Reports confusion, Denies dizziness, Denies syncope, Denies headache(s), Denies numbness, Denies restless legs, Denies convulsions and Denies seizure-like activity Psychiatric: Reports abnormal sleep pattern, Reports anxiety, Reports behavioral changes, Reports change in appetite, Reports confusion, Reports depression, Reports difficulty concentrating, Reports auditory hallucinations, Reports irritability, Reports anhedonia, Reports mood swings, Reports paranoia, Reports visual hallucinations, Reports hallucinations and Reports suicidal ideation (denies) Mental Status Exam Mental Status Exam Narrative: appropriately dressed and groomed. cooperative. no PMA/PMR. speech nml rate, amount, latency, loudness. thoughts linear and largely logical. affect blunted, non-labile. no SI/HI/AVH expressed. Patient Appearance: Disheveled Patient Orientation: Person, Place and Time Level of Consciousness: Awake and Alert Patient Behavior: Talkative, Hyperactive, Aggressive, Restless, Distractible, Good Eye Contact, Impulsive and Pacing Mood Description: Labile, Nervous and Expansive Affect Description: Labile, Angry and Expansive Patient Cognition Impaired: Yes Ability to Follow Directions: Good Speech Pattern: Spontaneous Speech, Rambling, Soft-Spoken, Cofabulation (confabulation), Rapid, Excessive, Pressured and Excited Memory Description: Remote Impaired and Episodic Impaired Diagnostics Vital Signs (24Hr): Vital Signs - 24 hr 02/08/21 18:00 Temperature 98.3 F Pulse Rate 95 Respiratory Rate 18 Blood Pressure 152/70 H Pulse Oximetry 95 Body Mass Index 25.6 Labs Results: 02/04/21 08:12 02/04/21 08:12 Imaging Radiology Impressions: ITS Impressions Wrist X-Ray 02/06/21 16:33 IMPRESSION: Normal right wrist. Medications Medications Current Medications Acetaminophen (Acetaminophen 325 Mg Tablet) 650 mg PO Q6H PRN PRN Reason: Headache/Pain Mild Scale (1-3) Last Admin: 02/07/21 15:07 Dose: 650 mg Documented by: Al Hydroxide/Mg Hydroxide (Magnesium Hydrox/Alum Hydrox 30 Ml Oral.Susp) 30 ml PO Q6H PRN PRN Reason: Heartburn/Nausea Benzocaine (Throat Lozenge, Medicated Lozenge) 1 lozenge MUCOUS MEM Q2H PRN PRN Reason: Sore Throat Last Admin: 02/09/21 04:27 Dose: 1 lozenge Documented by: Chlorpromazine HCl (Chlorpromazine Hcl 100 Mg Tablet) 100 mg PO Q6H PRN PRN Reason: agitation Hydroxyzine HCl (Hydroxyzine Hcl 25 Mg Tablet) 50 mg PO Q4H PRN PRN Reason: Anxiety or congestion Lamotrigine (Lamotrigine 100 Mg Tablet) 100 mg PO BID [facility] Last Admin: 02/08/21 20:47 Dose: 100 mg Documented by: Bodega Carbonate (Bodega Carbonate 300 Mg Capsule) 300 mg PO DAILY@1200 [facility] Last Admin: 02/08/21 11:51 Dose: 300 mg Documented by: Bodega Carbonate (Bodega Carbonate 300 Mg Capsule) 600 mg PO BID [facility] Last Admin: 02/08/21 20:48 Dose: 600 mg Documented by: Lorazepam (Lorazepam 1 Mg Tablet) 1 mg PO TID [facility] Last Admin: 02/08/21 20:48 Dose: 1 mg Documented by: Magnesium Hydroxide (Milk Of Magnesia 30 Ml Oral.Susp) 30 ml PO DAILY PRN PRN Reason: Constipation Nicotine Polacrilex (Nicotine Polacrilex 2 Mg Gum) 4 mg BUCCAL Q2H PRN PRN Reason: Nicotine Cravings Olanzapine (Olanzapine 10 Mg Tablet) 20 mg PO BEDTIME [facility] Last Admin: 02/08/21 20:47 Dose: 20 mg Documented by: Oxcarbazepine (Oxcarbazepine 150 Mg Tablet) 750 mg PO BID [facility] Last Admin: 02/08/21 20:47 Dose: 750 mg Documented by: Trazodone HCl (Trazodone Hcl 50 Mg Tablet) 50 mg PO BEDTIME PRN PRN Reason: Insomnia Trazodone HCl (Trazodone Hcl 100 Mg Tablet) 100 mg PO BEDTIME [facility] Last Admin: 02/08/21 21:02 Dose: Not Given Documented by: Vitamin D (Cholecalciferol (Vitamin D3) 25 Mcg Tablet) 125 mcg PO DAILY [facility] Last Admin: 02/08/21 09:51 Dose: 125 mcg Documented by: Allergies Allergies Allergy/AdvReac Type Severity Reaction Status Date / Time fluoxetine AdvReac Severe giuliana Verified 11/13/20 14:20 chlorpromazine AdvReac Intermediate sleep Verified 11/13/20 14:20 [From Thorazine] walking Assessment & Plan Assessment & Plan (1) Bipolar 1 disorder with moderate giuliana: Status: Acute Code(s): F31.12 - Bipolar disorder, current episode manic without psychotic features, moderate Assessment and Plan: Mr. Mcdaniels is a 20 year-old male with hx of Bipolar Disorder type 1, multiple inpt admission due to giuliana and psychosis. He self presented to [facility] [place] [facility] initially he wanted to disclose his new revelations. He was admitted due to increase paranoid delusions of ppl hurting children, grandiose delusions related to pt thinking he has special agarwal. Pt presents as labile, explosive at times. We discussed risks, benefits and alternative treatment options. He agreed to start zyprexa 20 mg at bedtime. such addition, in conjunction with ativan 1 mg TID and trazodone 100 QHS, has been helpful to begin to break the giuliana as of 02/06. 02/07:Made Thorazine TID scheduled 02/03 in addition to his PRN Thorazine; scheduled thorazine DCed 02/06 at patient request. added ativan 1 TID 02/03 for giuliana. lithium level subtherapeutic at 0.4 on 02/04. pt refusing to increase lithium or start VPA or tegretol or increase trileptal dosing. 3-day submitted 02/05. 02/08: Ct Rx plan. No med changes. Review 3 day notice on Mon. Greater than 50% of the session was spent on counseling and/or coordination of care Reason for contiued inpatient stay Substantial Risk for: rapid decompensation
[2021-02-09 08:50] VITALS: BP 142/74; PULSE 102; RESP 18; TEMP 37.1; O2SAT 98
[2021-02-09] MEDS: LORazepam 1 MG TABLET PO ×3 (09:04→20:27)
[2021-02-09] MEDS: OXcarbazepine 150 MG TABLET 750 MG PO ×2 (09:04→20:27)
[2021-02-09] MEDS: Cholecalciferol (Vitamin D3) 25 MCG TABLET 125 MCG PO (09:04)
[2021-02-09] MEDS: Lithium Carbonate 300 MG CAPSULE 600 MG PO ×2 (09:05→20:27)
[2021-02-09] MEDS: lamoTRIgine 100 MG TABLET PO ×2 (09:05→20:27)
[2021-02-09] MEDS: Lithium Carbonate 300 MG CAPSULE PO (13:29)
[2021-02-09 18:00] VITALS: BP 150/72; PULSE 96; RESP 18; TEMP 36.7; O2SAT 97
[2021-02-09] MEDS: OLANZapine 10 MG TABLET 20 MG PO (20:26)
[2021-02-09] MEDS: Acetaminophen 325 MG TABLET 650 MG PO (22:41)
[2021-02-10] MEDS: Throat Lozenge, Medicated LOZENGE 1 LOZENGE MUCOUS MEM ×2 (04:48→08:55)
[2021-02-10 08:07] VITALS: BP 171/79; PULSE 97; TEMP 36.4; O2SAT 95
[2021-02-10] MEDS: OXcarbazepine 150 MG TABLET 750 MG PO (08:39)
[2021-02-10] MEDS: Cholecalciferol (Vitamin D3) 25 MCG TABLET 125 MCG PO (08:39)
[2021-02-10] MEDS: Lithium Carbonate 300 MG CAPSULE 600 MG PO (08:40)
[2021-02-10] MEDS: LORazepam 1 MG TABLET PO (08:40)
[2021-02-10] MEDS: lamoTRIgine 100 MG TABLET PO (08:40)
--- NOTE | 2021-02-10 11:38 | PM.PSYDC ---
DS: Providers Provider Date of Service: 02/10/21 Date of admission: 01/29/21 15:50 Primary care physician: Brian Collins PA-C DS: Diagnosis Discharge Diagnosis (1) Bipolar 1 disorder with moderate giuliana: Status: Acute DS: Medications Discharge Medications Home Medications: Home Medications Medication Instructions Recorded Confirmed lithium carbonate 300 mg capsule 300 mg PO DAILY@1200 01/27/21 01/29/21 lithium carbonate 300 mg capsule 600 mg PO BID 01/27/21 01/29/21 oxcarbazepine 300 mg tablet 750 mg PO BID 01/27/21 01/29/21 omega-3 fatty acids-fish oil 360 2 cap PO DAILY 01/29/21 01/29/21 mg-1,200 mg capsule (Fish Oil) Previous Rx's Medication Instructions Recorded cholecalciferol (vitamin D3) 25 125 mcg PO DAILY #30 tab 05/30/20 mcg (1,000 unit) tablet lamotrigine 100 mg tablet 100 mg PO BID #60 tab 05/30/20 lorazepam 1 mg tablet 1 mg PO BID 10 Days #20 tab 02/10/21 olanzapine 10 mg tablet 20 mg PO BEDTIME 30 Days #60 tab 02/10/21 trazodone 100 mg tablet 100 mg PO BEDTIME PRN 10 Days #10 02/10/21 tab Mental Status Exam Mental Status Exam Narrative: appropriately dressed and groomed. cooperative. no PMA/PMR. speech nml rate, incr amount, decr latency, nml loudness. thoughts linear and largely logical. affect more flexible, non-labile. denies SI/HI/AVH. Data Data Completed and Pending Completed studies during hospitalization [Text1]: 02/03/21 02/04/21 02/04/21 13:44 08:12 08:12 WBC 14.5 H RBC 5.04 Hgb 14.4 Hct 44.0 MCV 87.3 MCH 28.6 MCHC 32.7 RDW 13.2 Plt Count 243 MPV 11.8 Immature Gran % (Auto) 0.4 Neut % (Auto) 79.9 H Lymph % (Auto) 8.1 L [place] % (Auto) 9.6 Eos % (Auto) 1.7 Baso % (Auto) 0.3 Lymph # (Auto) 1.2 [place] # (Auto) 1.4 H Eos # (Auto) 0.3 Baso # (Auto) 0.1 Abs Immat Gran (auto) 0.06 H Absolute Neuts (auto) 11.6 H Absolute Nucleated RBC 0.000 Nucleated RBC % (auto) 0.0 Sodium 140 Potassium 4.3 Chloride 108 Carbon Dioxide 24 Anion Gap 12 BUN 8 L Creatinine 0.84 Estim Creat Clear Calc 155.8 Estimated GFR > 60 Random Glucose 98 Calcium 10.0 [place] COVID-19 ([facility]) Negative COVID-19 Clin Com See Note 02/04/21 08:12 WBC RBC Hgb Hct MCV MCH MCHC RDW Plt Count MPV Immature Gran % (Auto) Neut % (Auto) Lymph % (Auto) [place] % (Auto) Eos % (Auto) Baso % (Auto) Lymph # (Auto) [place] # (Auto) Eos # (Auto) Baso # (Auto) Abs Immat Gran (auto) Absolute Neuts (auto) Absolute Nucleated RBC Nucleated RBC % (auto) Sodium Potassium Chloride Carbon Dioxide Anion Gap BUN Creatinine Estim Creat Clear Calc Estimated GFR Random Glucose Calcium [place] 0.40 L COVID-19 ([facility]IN) COVID-19 Clin Com Imaging Diagnostic Imaging Impressions Wrist X-Ray 02/06/21 16:33 IMPRESSION: Normal right wrist. DS: Summary Hospital Course Hospital Course: bill Carranza NP 01/30 H&P: Mr. Mcdaniels is a 20 year-old male with hx of Bipolar type 1 disorder who self presented to [facility] initially reporting new revelations that others couldn't understand as they were not as intelligent as him. He barricaded himself in the waiting room and with support of claim manager he agreed to be evaluated in the ED. In the ED, his utox was negative for opioid, cannabinoids, amphetamine, cocaine, PCP. His lithium level was 0.34. On the unit, pt presents as hyperverbal, stating he sees different realities like [place] movies which he can touch but others can't see. He reports being able to tell when others are hurting children. He reports he does not think he has mental illness. He states manic episodes are not real. He states he is doing well and does not need medications. He reports he does not need to sleep, only meditate at night. Pt wearing clothes of multiple mismatching colors. He was initially hyperverbal but calm, he suddenly stood up and became very irritable, with intense eye contact stating I will kill anyone who hurts the children, I will not spare their lives, I will kill then and they can ask God for forgiveness. 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 However, he also reports that when he walks on the streets he can see if adults walking with children are hurting them. He ripped his sweater off, proceeded to take other clothes, at which point this hand sign writer asked pt to step out the room and compose himself. He was able to be redirected and agreed to return to his room and put clothes on. Past Psychiatric History: Inpt: 4 admissions to ; last one 05/2020.? Required iv ketamine during one stay due to his giuliana. ? Shamir Daily is his outpatient psychiatrist Rosendo Bains is his therapist ? He has been on multiple medications in the past including depakote, abilify, latuda, and [place], olanzapine, thorazine Medical Evaluation Reviewed: Yes slight hyponatremia- will recheck. pt on trileptal per Johnny MALDONADO 01/31 Progress Note: pt found asleep on his bed mid-morning after having been chemically restrained.? it was felt to be more therapeutic to allow him to rest rather than to awaken him.? per staff, pt was awake all night.? he refused his zyprexa.? he was agitated, hyperverbal, and grandiose.? he barricaded his room and was punching his mattress with gusto, exercising a lot.? this morning he was seated near the egress and banging on the egress door.? he received both morning PO meds as well as IM shortly after and apparently fell asleep on his bed. per Johnny MALDONADO 02/03 Progress Note: pt seen wandering the hallways mid-morning.? eager to meet with .? somewhat pressured and difficult to redirect.? does not like thorazine because it slows him down too much. ? would like less of it.? agreeable to take 25 mg TID with ativan 1 mg TID as well.? will check lithium level tomorrow morning for trough.? states he does not like tegretol or depakote, so he is taking trileptal.? per staff, pt retracted his 3-day notice.? on 1:1 staffing.? had? multiple restraints over w/e.? 2 medication and one in restraint chair.? was given thorazine 50 mg IM, which was not very effective.? disruptive behaviors included holding doors to the unit shut, getting into the jabier port, throwing water, banging himself into tong, ripping his jacket and breaking his gold chain. per Johnny MALDONADO 02/05 Progress Note: pt states he does not like thorazine and will not take it.? he does think zyprexa is OK.? his low lithium level is explained and he is encouraged to accept a higher dose, which he declines.? he once again declines VPA or tegretol without explanation.? he states his medications are fine and he doesn't need any changes.? reiterates the need for better giuliana control and tells him he is in a manic epsiode.? pt states he is not in a manic episode and this conversation is over.? he then exits the interview room.? per staff, pt on 1:1.? pacing, napping yesterday.? 2 fresh air breaks but didn't want to come in, otherwise cooperative.? took all scheduled meds aside from thorazine.? 7:20 last NOC broke through doors and was restrained by security, put in restraint chair, medicated.? slept until 0300.? took HS meds at 0300. per Johnny MALDONADO 02/07 Progress Note: pt states he will not take a higher trileptal dose after all and did not take the higher dose last night.? he feels he does not need it, that his mood is fine.? as pt does appear to be improving, accepts pt's preference and decreases the dosing back to 750 BID.? in addition, pt asks that he have all 20 mg of zyprexa at HS, with which also agrees.? these changes essentially reinstate the status quo ante prior to yesterday.? pt states that if things start to get out of control he will take more trileptal.? also, if he continues to feel well he will not rescind his 3-day notice but if things do take a turn for the worse he will rescind it to remain in treatment longer.? acknowledges the plan and that if nothing changes a decision will have to be made wednesday on whether or not to file for commitment or to discharge.? per staff, pt eating and sleeping well - slept 11 p to 6 am last night.? went outside x1.? c/o some anxiety on eves.? mood improved after visit with mother.? xray of wrist NEG. per Johnny MALDONADO 02/10: pt reports he slept 8 hours last night, states he is feeling well and would like to discharge. acknowledges that his 3-day notice matures today but expresses some concern about his going. relates the quote provided by nursing staff this morning. pt denies having said it. 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 that's why we have the court system. there's nothing i can do about that. he continues to assert he has no HI and will not engage in any vigilante acts. meds reviewed, reconciled, and prescribed. agrees to decrease ativan to 2 mg daily and to taper off completely with his outpt prescriber. per staff, 3-day matures today. calm, cooperative, pleasant. social. brighter early yesterday. sadder later in the day. had 2 fresh air breaks without incident. was quoted to have said, there's this rage inside of me and if it gets out i'll kill people. they're bad people, but i'll feel good about killing them. Precis: Mr. Mcdaniels is a 20 year-old male with hx of Bipolar Disorder type 1, multiple inpt admission due to giuliana and psychosis. He self presented to [facility] initially he wanted to disclose his new revelations. He was admitted due to increase paranoid delusions of ppl hurting children, grandiose delusions related to pt thinking he has special agarwal. Pt presented as labile, explosive at times. We discussed risks, benefits and alternative treatment options. He agreed to start zyprexa 20 mg at bedtime.? such addition, in conjunction with ativan 1 mg TID and trazodone 100 QHS, was helpful to begin to break the giuliana as of 02/06. Made Thorazine TID scheduled 02/03 in addition to his PRN Thorazine; scheduled thorazine DCed 02/06 at patient request. added ativan 1 TID 02/03 for giuliana. dosing decreased to 1 mg BID at D/C with intention to taper off entirely in coming weeks. lithium level subtherapeutic at 0.4 on 02/04. pt refused to increase lithium or start VPA or tegretol or increase trileptal dosing. 3-day submitted 02/05, matured 02/10. discharged 02/10. remained symptomatic at discharge but giuliana much attenuated from admission. Time Spent with Patient Time attestation: Total time spent providing and/or coordinating discharge services: Discharge Plan Discharge Patient Disposition: Home, Self-Care Discharge Diagnosis: Bipolar I Disorder, Most Recent Episode Giuliana Referrals: Dr. Daily (psychiatrist) [Other] - 02/20/21 11:30 am Rosendo Bains (therapist) [Other] (Voicemail left, please follow up if you do not hear back in a few days) Brian Collins PA-C [Primary Care Provider] - 1 Week Discharge Medications: New olanzapine 10 mg Tablet 20 mg PO BEDTIME 30 Days Qty: 60 RF: 0 trazodone 100 mg Tablet 100 mg PO BEDTIME PRN (Reason: insomnia) 10 Days Qty: 10 RF: 0 lorazepam 1 mg Tablet 1 mg PO BID 10 Days Qty: 20 RF: 0 Continued lamotrigine 100 mg Tablet 100 mg PO BID Qty: 60 RF: 0 cholecalciferol (vitamin D3) 25 mcg (1,000 unit) Tablet 125 mcg PO DAILY Qty: 30 RF: 0 lithium carbonate 300 mg capsule 600 mg PO BID RF: 0 lithium carbonate 300 mg Capsule 300 mg PO DAILY@1200 RF: 0 oxcarbazepine 300 mg tablet 750 mg PO BID RF: 0 omega-3 fatty acids-fish oil [Fish Oil] 360-1,200 mg capsule 2 cap PO DAILY RF: 0 Discontinued trazodone 50 mg tablet 50 mg PO BEDTIME PRN (Reason: Insomnia) RF: 0 Discharge Orders: Discharge Order (Routine); Ordered 02/10/21 Ordered By: José Miguel Turner Diet: advance to usual diet Activity on Discharge: As tolerated Stand Alone Forms: Patient Portal Discharge page, Community Support Care Plan Goals: maintain independent living in the community Health Concerns: none Plan of Treatment: take medications as prescribed, attend appointments as scheduled. Assessment: not at imminent risk of harm to self or others, not gravely disabled. as 3-day notice matures today, pt is not found to meet criteria for commitment. Discharge Date/Time: 02/10/21 13:04
[2021-02-10] MEDS: Lithium Carbonate 300 MG CAPSULE PO (12:15)
== END 2021-02-10 13:04 | disposition home or self-care (01) | DRG 885 ==
LOC: HO.ED 16:07 → HO.PADLT16 16:17
PROVIDERS: Physician Assistant; Social Worker; Admitting Provider Psychiatry & Neurology Psychiatry; Emergency Provider Emergency Medicine; PCP Physician Assistant; Visit Provider Psychiatry & Neurology Psychiatry
DX: F31.2 Bipolar disorder, current episode manic severe with psychotic features (principal); Z20.822 Contact with and (suspected) exposure to COVID-19; Z91.14 Patient's other noncompliance with medication regimen; Z79.899 Other long term (current) drug therapy
CPT/HCPCS: 36415; 73110; 80048; 80061; 80076; 80178; 80307; 81003; 82077; 83036; 83735; 85025; 87635; 99232; 99285; J1200; J3230

== ENCOUNTER 2021-02-11 22:59 | Emergency (ER) | payer OTHER, SELFPAY ==
[2021-02-12 00:10] VITALS: BP 141/66; PULSE 85; RESP 16; TEMP 36.7; O2SAT 97; BMI 35.2
--- NOTE | 2021-02-12 00:27 | ED.PSYCH ---
HPI - Psych General Chief Complaint: Psychiatric Symptoms Stated Complaint: psychological issues? Time Seen by Provider: 02/12/21 00:27 Source: patient Mode of arrival: ambulatory Limitations: no limitations History of Present Illness HPI Narrative: Patient with a history of bipolar disorder type 1 multiple inpatient admission due to giuliana and psychosis just discharged from today on 02/10 comes back as he does not feel safe and still feels suicidal Related Data Home Medications Medication Instructions Recorded Confirmed lithium carbonate 300 mg capsule 300 mg PO DAILY@1200 01/27/21 02/12/21 lithium carbonate 300 mg capsule 600 mg PO BID 01/27/21 02/12/21 oxcarbazepine 300 mg tablet 750 mg PO BID 01/27/21 02/12/21 Previous Rx's Medication Instructions Recorded cholecalciferol (vitamin D3) 25 125 mcg PO DAILY #30 tab 05/30/20 mcg (1,000 unit) tablet lamotrigine 100 mg tablet 100 mg PO BID #60 tab 05/30/20 lorazepam 1 mg tablet 1 mg PO BID 10 Days #20 tab 02/10/21 olanzapine 10 mg tablet 20 mg PO BEDTIME 30 Days #60 tab 02/10/21 trazodone 100 mg tablet 100 mg PO BEDTIME PRN 10 Days #10 02/10/21 tab Allergies Allergy/AdvReac Type Severity Reaction Status Date / Time fluoxetine AdvReac Severe giuliana Verified 11/13/20 14:20 chlorpromazine AdvReac Intermediate sleep Verified 11/13/20 14:20 [From Thorazine] walking Review of Systems Review of Systems: Constitutional : No Fever, No Chills ENT/Mouth : No Ear Pain, No Nasal Congestion, No sore throat Eyes: No Eye Pain, No Swelling, No Redness Cardiovascular : No Chest Pain, No SOB Respiratory : No Cough, No Sputum, No Dyspnea Gastrointestinal : No Nausea, No Vomiting, No Diarrhea, No Hematochezia, No Melena Genitourinary : No Dysuria, No Urinary Frequency, No Hematuria Musculoskeletal : No Myalgias Skin : No Skin Lesions, No rash Neuro : No Weakness, No Numbness, No Paresthesias, No Dizziness, No Headache Psych : positive Anxiety, positive Depression, positive SI Heme/Lymph: No Lymphadenopathy Endocrine : No Polyuria, No Polydipsia PMFSH Past Medical History Medical History Anxiety Bipolar 1 disorder with moderate giuliana Depression No known health problems Family History Family History Mother Alcohol abuse Mental problem Father Alcohol abuse Mental problem Melanoma Social History Social History Household Members: Family Household Members Other:: mom and brother Housing: House Do you presently have visiting nurse or other home services: Yes ( she fills my meds once a week ) Alcohol intake: current Patient Tobacco Use Status: Tobacco use Unknown e-Cigarette/Vaping Use: Never Used Second Hand Smoke Exposure: Yes ( sometimes but not too often ) Advance Directives: No Advance Directives Information Provided: Yes Guardian: No service: No Current occupational status: disabled Sexual orientation: Straight/Heterosexual Physical Exam Vital Signs: Vital Signs: Last Vital Signs Temp 98.1 F 02/12/21 00:10 Pulse 85 02/12/21 00:10 Resp 16 02/12/21 00:10 BP 141/66 H 02/12/21 00:10 Pulse Ox 97 02/12/21 00:10 Body Mass Index 35.2 Appearance: Alert. Oriented X3. No acute distress. Anxious Eyes: PERRLA, No Nystagmus ENT: Pharynx normal. Oral Mucosa moist Neck: Normal inspection. Neck supple. CVS: Normal heart rate and rhythm. Pulses normal. Respiratory: No respiratory distress. Equal air entry bilateral, no wheezing/rales/rhonchi Abdomen: Soft and nontender. Bowel sounds are present, no mass palpable, no CVA tenderness Skin: Skin warm and dry. Normal skin color. Normal skin turgor. Extremities: No lower extremity edema. No calf tenderness Psych: Anxious no hallucination or delusions denies any suicidal feeling at this time Neuro: Oriented X 3. No motor deficit. No sensory deficit.No cerebellar signs , cranial nerves II-XII intact MDM - Psych MDM Narrative Medical decision making narrative: Patient need to be evaluated by crisis again , disposition pending their decision Lab Data Attestation: I reviewed the patient's lab results. Labs: Lab Results 02/12/21 02/12/21 Range/Units 01:08 01:08 Urine Opiates Screen Not Detected (Not Detect) Urine Fentanyl Screen Not Detected (Not Detect) Ur Barbiturates Screen Not Detected (Not Detect) Ur Phencyclidine Scrn Not Detected (Not Detect) Ur Amphetamines Screen Not Detected (Not Detect) U Benzodiazepines Scrn Not Detected (Not Detect) Urine Cocaine Screen Not Detected (Not Detect) U Marijuana (THC) Screen Not Detected (Not Detect) COVID-19 ([facility]) Negative (Negative) COVID-19 Clin Com See Note Discharge Plan Discharge Clinical Impression: Bipolar disorder Qualifiers: Active/Remission status: currently active Current bipolar episode type: depressed Current episode severity: severe Psychotic features: without psychotic features Qualified Code(s): F31.4 - Bipolar disorder, current episode depressed, severe, without psychotic features Prescriptions: No Action lamotrigine 100 mg Tablet 100 mg PO BID Qty: 60 RF: 0 cholecalciferol (vitamin D3) 25 mcg (1,000 unit) Tablet 125 mcg PO DAILY Qty: 30 RF: 0 lithium carbonate 300 mg capsule 600 mg PO BID RF: 0 lithium carbonate 300 mg Capsule 300 mg PO DAILY@1200 RF: 0 oxcarbazepine 300 mg tablet 750 mg PO BID RF: 0 olanzapine 10 mg Tablet 20 mg PO BEDTIME 30 Days Qty: 60 RF: 0 trazodone 100 mg Tablet 100 mg PO BEDTIME PRN (Reason: insomnia) 10 Days Qty: 10 RF: 0 lorazepam 1 mg Tablet 1 mg PO BID 10 Days Qty: 20 RF: 0
[2021-02-12] MEDS: Lithium Carbonate 300 MG CAPSULE 600 MG PO ×2 (01:38→09:45)
[2021-02-12] MEDS: OXcarbazepine 150 MG TABLET 750 MG PO ×2 (01:38→09:44)
[2021-02-12] MEDS: OLANZapine 10 MG TABLET 20 MG PO (01:38)
[2021-02-12] MEDS: traZODone HCL 100 MG TABLET PO (01:38)
[2021-02-12] MEDS: LORazepam 1 MG TABLET PO ×2 (01:38→09:46)
[2021-02-12] MEDS: lamoTRIgine 100 MG TABLET PO ×2 (01:38→09:44)
[2021-02-12 01:41] LABS: Amphetamine Screen Urine Not Detected (Not Detect); Barbiturates, Urine Not Detected (Not Detect); Benzodiazepines Screen Urine Not Detected (Not Detect); Cannabinoid Screen Urine Not Detected (Not Detect); Cocaine Screen Urine Not Detected (Not Detect); Fentanyl, urine Not Detected (Not Detect); Opiate Screen Urine Not Detected (Not Detect); Phencyclidine Screen Urine Not Detected (Not Detect)
[2021-02-12 01:44] LABS: COVID-19 Test Negative (Negative); IDNOW Serial# 9DD0AD1C
--- NOTE | 2021-02-12 06:27 | PC.NURSE ---
Patient slept through the night, no distress observed/reported, med rec completed, patient compliant with his medication, patient got assessed by care team, disposition is section 12 inpatient bed search, behavior non concerning at this time may escalade due to unpredictability history, VSS, will continue to monitor.
[2021-02-12 08:39] VITALS: BP 116/64; PULSE 81; RESP 16; TEMP 37; O2SAT 94
[2021-02-12] MEDS: Cholecalciferol (Vitamin D3) 25 MCG TABLET 125 MCG PO (09:45)
--- NOTE | 2021-02-12 10:46 | MHC.CARE ---
CARE Team met with patient for an updated mental status, he appeared alert and oriented, calm, lucid and requested discharge home. Has gave a reasonable explanation of yesterday's events, denied suicidal ideation or thoughts to harm others, has been taking medications as prescribed and appointments with providers scheduled. [employer]er, Jesika Vuong, [facility] and ED provider, Dr. Gonsalez consulted and in agreement with plan to discharge home.
== END 2021-02-12 10:44 | disposition home or self-care (01) ==
PROVIDERS: Emergency Provider Internal Medicine; PCP Physician Assistant
DX: F31.4 Bipolar disorder, current episode depressed, severe, without psychotic features (principal); Z79.899 Other long term (current) drug therapy; Z20.822 Contact with and (suspected) exposure to COVID-19
CPT/HCPCS: 36415; 80307; 87635; 99283; 99284

== ENCOUNTER 2021-02-14 00:04 | Emergency (ER) | payer OTHER, SELFPAY ==
[2021-02-14] VITALS (11 sets, daily range): BP systolic 114–140; BP diastolic 77–91; PULSE 91–117; RESP 18–22; TEMP 37.2–37.3; O2SAT 96–98; BMI 27.8
[2021-02-14] MEDS: Haloperidol Lactate 5 MG/ML VIAL IM (00:46)
[2021-02-14] MEDS: LORazepam 2 MG/ML VIAL IM (00:46)
--- NOTE | 2021-02-14 00:49 | ED_ITS ---
HPI - Anxiety General Stated Complaint: manic episode, voluntary <Arik Valencia MD - Last Filed: 02/14/21 00:58> Time Seen by Provider: 02/14/21 00:38 <Arik Valencia MD - Last Filed: 02/14/21 00:58> Source: RN notes reviewed <Arik Valencia MD - Last Filed: 02/14/21 00:58> Mode of arrival: EMS <Arik Valencia MD - Last Filed: 02/14/21 00:58> Limitations: altered mental status <Arik Valencia MD - Last Filed: 02/14/21 00:58> History of Present Illness HPI narrative: dariela is a known paranoid schizophrenic who had a nightmare and called the ambulance, he came into the ED and got agitated and needed to be medicated. <Arik Valencia MD - Last Filed: 02/14/21 00:58> MD complaint: anxiety <Arik Valencia MD - Last Filed: 02/14/21 00:58> Onset (ago): month(s) <Arik Valencia MD - Last Filed: 02/14/21 00:58> Symptoms: dyspnea <Arik Valencia MD - Last Filed: 02/14/21 00:58> Severity: severe <Arik Valencia MD - Last Filed: 02/14/21 00:58> Related Data Home Medications: Home Medications Medication Instructions Recorded Confirmed lithium carbonate 300 mg capsule 300 mg PO DAILY@1200 01/27/21 02/14/21 lithium carbonate 300 mg capsule 600 mg PO BID 01/27/21 02/14/21 oxcarbazepine 300 mg tablet 750 mg PO BID 01/27/21 02/14/21 Previous Rx's Medication Instructions Recorded cholecalciferol (vitamin D3) 25 125 mcg PO DAILY #30 tab 05/30/20 mcg (1,000 unit) tablet lamotrigine 100 mg tablet 100 mg PO BID #60 tab 05/30/20 lorazepam 1 mg tablet 1 mg PO BID 10 Days #20 tab 02/10/21 olanzapine 10 mg tablet 20 mg PO BEDTIME 30 Days #60 tab 02/10/21 trazodone 100 mg tablet 100 mg PO BEDTIME PRN 10 Days #10 02/10/21 tab haloperidol 5 mg tablet 5 mg PO BID #14 tab 02/15/21 lorazepam 1 mg tablet 1 mg PO BID PRN #14 tab 02/15/21 <Arik Valencia MD - Last Filed: 02/14/21 00:58> Allergies/Adverse Reactions: Allergies Allergy/AdvReac Type Severity Reaction Status Date / Time fluoxetine AdvReac Severe giuliana Verified 11/13/20 14:20 chlorpromazine AdvReac Intermediate sleep Verified 11/13/20 14:20 [From Thorazine] walking <Arik Valencia MD - Last Filed: 02/14/21 00:58> Review of Systems Constitutional: Constitutional: Reports no additional constitutional complaints <Arik Valencia MD - Last Filed: 02/14/21 00:58> Eyes: Eyes: Reports no additional eye complaints <Arik Valencia MD - Last Filed: 02/14/21 00:58> ENT: Denies dizziness <Arik Valencia MD - Last Filed: 02/14/21 00:58> Cardiovascular: Cardiovascular: Reports no additional cardiovascular complaints <Arik Valencia MD - Last Filed: 02/14/21 00:58> Respiratory: Respiratory: Reports as per HPI <Arik Valencia MD - Last Filed: 02/14/21 00:58> Gastrointestinal: Gastrointestinal: Reports no additional gastrointestinal complaints <Arik Valencia MD - Last Filed: 02/14/21 00:58> Musculoskeletal: Musculoskeletal: Reports no additional musculoskeletal complaints <Arik Valencia MD - Last Filed: 02/14/21 00:58> Integumentary/Breasts: Skin/Breast: Denies rash <Arik Valencia MD - Last Filed: 02/14/21 00:58> Neurologic: Reports system reviewed and no additional complaints, except as documented, Denies dizziness and Denies Sensory deficit (Neuro) <Arik Valencia MD - Last Filed: 02/14/21 00:58> Psychiatric: Psychiatric: Denies anxiety <Arik Valencia MD - Last Filed: 02/14/21 00:58> PMFSH Past Medical History Medical History: Medical History Anxiety Bipolar 1 disorder with moderate giuliana Depression No known health problems <Arik Valencia MD - Last Filed: 02/14/21 00:58> Family History Family History: Family History Mother Alcohol abuse Mental problem Father Alcohol abuse Mental problem Melanoma <Arik Valencia MD - Last Filed: 02/14/21 00:58> Social History Social History: Social History Household Members: Family Household Members Other:: mom and brother Housing: House Do you presently have visiting nurse or other home services: Yes ( she fills my meds once a week ) Alcohol intake: current Patient Tobacco Use Status: Tobacco use Unknown e-Cigarette/Vaping Use: Never Used Second Hand Smoke Exposure: Yes ( sometimes but not too often ) Advance Directives: No Advance Directives Information Provided: Yes service: No Current occupational status: disabled Sexual orientation: Straight/Heterosexual <Arik Valencia MD - Last Filed: 02/14/21 00:58> Physical Exam Vital Signs: Vital Signs: Last Vital Signs Temp 99.0 F 02/14/21 10:07 Pulse 91 02/14/21 10:07 Resp 18 02/14/21 13:05 BP 114/91 H 02/14/21 10:07 Pulse Ox 98 02/14/21 10:07 Body Mass Index 27.8 <Arik Valencia MD - Last Filed: 02/14/21 00:58> Vital Signs: Last Vital Signs Temp 99.0 F 02/14/21 10:07 Pulse 91 02/14/21 10:07 Resp 18 02/14/21 13:05 BP 114/91 H 02/14/21 10:07 Pulse Ox 98 02/14/21 10:07 Body Mass Index 27.8 <PRANAV Bacon - Last Filed: 02/14/21 14:36> Vital Signs: Last Vital Signs Temp 99.0 F 02/14/21 10:07 Pulse 91 02/14/21 10:07 Resp 18 02/14/21 13:05 BP 114/91 H 02/14/21 10:07 Pulse Ox 98 02/14/21 10:07 Body Mass Index 27.8 <Zackary Davey MD - Last Filed: 02/14/21 22:09> Vital Signs: Last Vital Signs Temp 99.0 F 02/14/21 10:07 Pulse 91 02/14/21 10:07 Resp 18 02/14/21 13:05 BP 114/91 H 02/14/21 10:07 Pulse Ox 98 02/14/21 10:07 Body Mass Index 27.8 <Marguerite Gonsalez DO - Last Filed: 02/17/21 08:06> Const: Other: patient with pressured speach, disorganized <Arik Valencia MD - Last Filed: 02/14/21 00:58> Nutritional Appearance: average body habitus <Arik Valencia MD - Last Filed: 02/14/21 00:58> Orientation/consciousness: oriented to person and patient oriented x3 <Arik Valencia MD - Last Filed: 02/14/21 00:58> Limitations: no limitations <Arik Valencia MD - Last Filed: 02/14/21 00:58> HENMT: Head: Yes normal to inspection <Arik Valencia MD - Last Filed: 02/14/21 00:58> Ears: external ears normal <Arik Valencia MD - Last Filed: 02/14/21 00:58> General nose exam: Normal external nose present <Arik Valencia MD - Last Filed: 02/14/21 00:58> Mouth: Normal oral and palatal mucosa present and oropharynx normal <Arik Valencia MD - Last Filed: 02/14/21 00:58> Throat: Yes posterior oropharynx normal <Arik Valencia MD - Last Filed: 02/14/21 00:58> Eyes: General: appearance normal, both eyes and all related structures <Arik Valencia MD - Last Filed: 02/14/21 00:58> Neck: Other: supple <Arik Valencia MD - Last Filed: 02/14/21 00:58> Neck: Yes normal visual inspection <Arik Valencia MD - Last Filed: 02/14/21 00:58> Chest: Chest palpation & inspection: normal inspection of the chest <Arik Valencia MD - Last Filed: 02/14/21 00:58> Resp: Auscultation: clear to auscultation bilaterally <Arik Valencia MD - Last Filed: 02/14/21 00:58> Cardio: Jugular venous distension: no JVD <Arik Valencia MD - Last Filed: 02/14/21 00:58> Rate: regular rate <Arik Valencia MD - Last Filed: 02/14/21 00:58> Rhythm: regular rhythm <Arik Valencia MD - Last Filed: 02/14/21 00:58> Heart sounds: S1 normal heart sound present and S2 normal heart sound present <Arik Valencia MD - Last Filed: 02/14/21 00:58> GI: Inspection: Yes normal to inspection <Arik Valencia MD - Last Filed: 02/14/21 00:58> Palpation (GI): Soft to palpation, nontender and No hepatosplenomegaly present <Arik Valencia MD - Last Filed: 02/14/21 00:58> Auscultation: normal bowel sounds <Arik Valencia MD - Last Filed: 02/14/21 00:58> : General: Yes no CVA tenderness <Arik Valencia MD - Last Filed: 02/14/21 00:58> Back/Spine/Pelvis: Back: no CVA tenderness <Arik Valencia MD - Last Filed: 02/14/21 00:58> Skin: General skin exam: no rashes or lesions noted <Arik Valencia MD - Last Filed: 02/14/21 00:58> Neuro: General: oriented to person and patient oriented x3 <Arik Valencia MD - Last Filed: 02/14/21 00:58> Cranial nerves: Yes CN's II-XII intact bilaterally <Arik Valencia MD - Last Filed: 02/14/21 00:58> Motor exam (neuro): 5/5 motor strength present throughout <Arik Valencia MD - Last Filed: 02/14/21 00:58> Sensory Exam: No Sensory deficit (Neuro) <Arik Valencia MD - Last Filed: 02/14/21 00:58> Extrem: General: Yes normal to inspection <Arik Valencia MD - Last Filed: 02/14/21 00:58> Psych: Other: disorganized pressured speach <Arik Valencia MD - Last Filed: 02/14/21 00:58> Course Reevaluation(s) Reevaluation #1: patient with increased agitation on arrival and needed to medicated for sedation he is not restrained <Arik Valencia MD - Last Filed: 02/14/21 00:58> Reevaluation #2: Physician observation conitnued. Patient is a bed search. Patient became agressive and punching the television and himself. patient had to sedated with zyprexa and benadryl <PRANAV Bacon - Last Filed: 02/14/21 14:36> Time: 12:05 <PRANAV Bacon - Last Filed: 02/14/21 14:36> MDM - Anxiety MDM Narrative Medical decision making narrative: 21-year-old male known history of psych disorder came in last night for anxiety and panic attack, recent psych admission, patient was evaluated by N patient declined any depression/no SI/no HI/no hallucination, in recommending discharge the patient. Patient feels safe to be discharged to his mother house, family member will drive the patient home. <Zackary Davey MD - Last Filed: 02/14/21 22:09> Lab Data Result diagrams: : 02/14/21 01:08 02/14/21 01:08 <Arik Valencia MD - Last Filed: 02/14/21 00:58> Labs: Lab Results 02/14/21 02/14/21 02/14/21 Range/Units 01:08 01:08 01:08 WBC 12.4 H (4.8-10.8) X10*3/uL RBC 4.54 L (4.60-5.80) X10*6/uL Hgb 13.0 L (14.0-18.0) g/dl Hct 39.7 L (42-52) % MCV 87.4 (80-98) fL MCH 28.6 (27.0-33.0) pg MCHC 32.7 (31.0-36.0) g/dl RDW 13.3 (11.0-16.0) % Plt Count 255 (160-400) X10*3/uL MPV 10.9 (9.4-12.4) fL Immature Gran % (Auto) 0.4 (0.0-0.4) % Neut % (Auto) 59.1 (45-73) % Lymph % (Auto) 26.4 (20-40) % [place] % (Auto) 11.6 H (2-11) % Eos % (Auto) 2.0 (0-4) % Baso % (Auto) 0.5 (0-2) % Lymph # (Auto) 3.3 (1.2-4.9) X10*3/uL [place] # (Auto) 1.4 H (0.1-1.2) X10*3/uL Eos # (Auto) 0.3 (0.0-0.4) X10*3/uL Baso # (Auto) 0.1 (0.0-0.2) X10*3/uL Abs Immat Gran (auto) 0.05 H (0.00-0.03) X10*3/uL Absolute Neuts (auto) 7.3 (2.0-8.3) X10*3/uL Absolute Nucleated RBC 0.000 (0.0-0.012) X10*3/uL Nucleated RBC % (auto) 0.0 (0.0-0.2) /100WBC Sodium 141 (135-145) mmol/L Potassium 3.8 (3.3-5.1) mmol/L Chloride 109 H (96-108) mmol/L Carbon Dioxide 24 (22-29) mmol/L Anion Gap 12 (12-20) BUN 13 D (9-16) mg/dL Creatinine 0.84 (0.5-1.4) mg/dL Estim Creat Clear Calc 157.6 Estimated GFR > 60 Random Glucose 115 (60-115) mg/dL Calcium 9.3 D (8.4-10.2) mg/dL Total Bilirubin 0.2 (0.0-1.0) mg/dL AST 34 (5-37) U/L ALT 50 H (0-40) U/L Alkaline Phosphatase 71 (39-117) U/L Total Protein 6.6 (6.5-8.0) g/dL Albumin 4.2 (3.5-5.0) g/dL Salicylates < 5.0 L (15-30) mg/dL Urine Opiates Screen (Not Detect) Urine Fentanyl Screen (Not Detect) Acetaminophen < 1 (<30) mcg/mL Ur Barbiturates Screen (Not Detect) Ur Phencyclidine Scrn (Not Detect) Ur Amphetamines Screen (Not Detect) U Benzodiazepines Scrn (Not Detect) [place] (0.60-1.20) mmol/L Urine Cocaine Screen (Not Detect) U Marijuana (THC) Screen (Not Detect) Ethyl Alcohol < 10 mg/dL COVID-19 ([facility]) (Negative) COVID-19 Clin Com 02/14/21 02/14/21 02/14/21 Range/Units 01:08 01:13 09:33 WBC (4.8-10.8) X10*3/uL RBC (4.60-5.80) X10*6/uL Hgb (14.0-18.0) g/dl Hct (42-52) % MCV (80-98) fL MCH (27.0-33.0) pg MCHC (31.0-36.0) g/dl RDW (11.0-16.0) % Plt Count (160-400) X10*3/uL MPV (9.4-12.4) fL Immature Gran % (Auto) (0.0-0.4) % Neut % (Auto) (45-73) % Lymph % (Auto) (20-40) % [place] % (Auto) (2-11) % Eos % (Auto) (0-4) % Baso % (Auto) (0-2) % Lymph # (Auto) (1.2-4.9) X10*3/uL [place] # (Auto) (0.1-1.2) X10*3/uL Eos # (Auto) (0.0-0.4) X10*3/uL Baso # (Auto) (0.0-0.2) X10*3/uL Abs Immat Gran (auto) (0.00-0.03) X10*3/uL Absolute Neuts (auto) (2.0-8.3) X10*3/uL Absolute Nucleated RBC (0.0-0.012) X10*3/uL Nucleated RBC % (auto) (0.0-0.2) /100WBC Sodium (135-145) mmol/L Potassium (3.3-5.1) mmol/L Chloride (96-108) mmol/L Carbon Dioxide (22-29) mmol/L Anion Gap (12-20) BUN (9-16) mg/dL Creatinine (0.5-1.4) mg/dL Estim Creat Clear Calc Estimated GFR Random Glucose (60-115) mg/dL Calcium (8.4-10.2) mg/dL Total Bilirubin (0.0-1.0) mg/dL AST (5-37) U/L ALT (0-40) U/L Alkaline Phosphatase (39-117) U/L Total Protein (6.5-8.0) g/dL Albumin (3.5-5.0) g/dL Salicylates (15-30) mg/dL Urine Opiates Screen Not Detected (Not Detect) Urine Fentanyl Screen Not Detected (Not Detect) Acetaminophen (<30) mcg/mL Ur Barbiturates Screen Not Detected (Not Detect) Ur Phencyclidine Scrn Not Detected (Not Detect) Ur Amphetamines Screen Not Detected (Not Detect) U Benzodiazepines Scrn Not Detected (Not Detect) [place] 0.47 L (0.60-1.20) mmol/L Urine Cocaine Screen Not Detected (Not Detect) U Marijuana (THC) Screen Not Detected (Not Detect) Ethyl Alcohol mg/dL COVID-19 ([facility]) Negative (Negative) COVID-19 Clin Com See Note <Arik Valencia MD - Last Filed: 02/14/21 00:58> Lab Results 02/14/21 02/14/21 02/14/21 Range/Units 01:08 01:08 01:08 WBC 12.4 H (4.8-10.8) X10*3/uL RBC 4.54 L (4.60-5.80) X10*6/uL Hgb 13.0 L (14.0-18.0) g/dl Hct 39.7 L (42-52) % MCV 87.4 (80-98) fL MCH 28.6 (27.0-33.0) pg MCHC 32.7 (31.0-36.0) g/dl RDW 13.3 (11.0-16.0) % Plt Count 255 (160-400) X10*3/uL MPV 10.9 (9.4-12.4) fL Immature Gran % (Auto) 0.4 (0.0-0.4) % Neut % (Auto) 59.1 (45-73) % Lymph % (Auto) 26.4 (20-40) % [place] % (Auto) 11.6 H (2-11) % Eos % (Auto) 2.0 (0-4) % Baso % (Auto) 0.5 (0-2) % Lymph # (Auto) 3.3 (1.2-4.9) X10*3/uL [place] # (Auto) 1.4 H (0.1-1.2) X10*3/uL Eos # (Auto) 0.3 (0.0-0.4) X10*3/uL Baso # (Auto) 0.1 (0.0-0.2) X10*3/uL Abs Immat Gran (auto) 0.05 H (0.00-0.03) X10*3/uL Absolute Neuts (auto) 7.3 (2.0-8.3) X10*3/uL Absolute Nucleated RBC 0.000 (0.0-0.012) X10*3/uL Nucleated RBC % (auto) 0.0 (0.0-0.2) /100WBC Sodium 141 (135-145) mmol/L Potassium 3.8 (3.3-5.1) mmol/L Chloride 109 H (96-108) mmol/L Carbon Dioxide 24 (22-29) mmol/L Anion Gap 12 (12-20) BUN 13 D (9-16) mg/dL Creatinine 0.84 (0.5-1.4) mg/dL Estim Creat Clear Calc 157.6 Estimated GFR > 60 Random Glucose 115 (60-115) mg/dL Calcium 9.3 D (8.4-10.2) mg/dL Total Bilirubin 0.2 (0.0-1.0) mg/dL AST 34 (5-37) U/L ALT 50 H (0-40) U/L Alkaline Phosphatase 71 (39-117) U/L Total Protein 6.6 (6.5-8.0) g/dL Albumin 4.2 (3.5-5.0) g/dL Salicylates < 5.0 L (15-30) mg/dL Urine Opiates Screen (Not Detect) Urine Fentanyl Screen (Not Detect) Acetaminophen < 1 (<30) mcg/mL Ur Barbiturates Screen (Not Detect) Ur Phencyclidine Scrn (Not Detect) Ur Amphetamines Screen (Not Detect) U Benzodiazepines Scrn (Not Detect) [place] (0.60-1.20) mmol/L Urine Cocaine Screen (Not Detect) U Marijuana (THC) Screen (Not Detect) Ethyl Alcohol < 10 mg/dL COVID-19 ([facility]) (Negative) COVID-19 Clin Com 02/14/21 02/14/21 02/14/21 Range/Units 01:08 01:13 09:33 WBC (4.8-10.8) X10*3/uL RBC (4.60-5.80) X10*6/uL Hgb (14.0-18.0) g/dl Hct (42-52) % MCV (80-98) fL MCH (27.0-33.0) pg MCHC (31.0-36.0) g/dl RDW (11.0-16.0) % Plt Count (160-400) X10*3/uL MPV (9.4-12.4) fL Immature Gran % (Auto) (0.0-0.4) % Neut % (Auto) (45-73) % Lymph % (Auto) (20-40) % [place] % (Auto) (2-11) % Eos % (Auto) (0-4) % Baso % (Auto) (0-2) % Lymph # (Auto) (1.2-4.9) X10*3/uL [place] # (Auto) (0.1-1.2) X10*3/uL Eos # (Auto) (0.0-0.4) X10*3/uL Baso # (Auto) (0.0-0.2) X10*3/uL Abs Immat Gran (auto) (0.00-0.03) X10*3/uL Absolute Neuts (auto) (2.0-8.3) X10*3/uL Absolute Nucleated RBC (0.0-0.012) X10*3/uL Nucleated RBC % (auto) (0.0-0.2) /100WBC Sodium (135-145) mmol/L Potassium (3.3-5.1) mmol/L Chloride (96-108) mmol/L Carbon Dioxide (22-29) mmol/L Anion Gap (12-20) BUN (9-16) mg/dL Creatinine (0.5-1.4) mg/dL Estim Creat Clear Calc Estimated GFR Random Glucose (60-115) mg/dL Calcium (8.4-10.2) mg/dL Total Bilirubin (0.0-1.0) mg/dL AST (5-37) U/L ALT (0-40) U/L Alkaline Phosphatase (39-117) U/L Total Protein (6.5-8.0) g/dL Albumin (3.5-5.0) g/dL Salicylates (15-30) mg/dL Urine Opiates Screen Not Detected (Not Detect) Urine Fentanyl Screen Not Detected (Not Detect) Acetaminophen (<30) mcg/mL Ur Barbiturates Screen Not Detected (Not Detect) Ur Phencyclidine Scrn Not Detected (Not Detect) Ur Amphetamines Screen Not Detected (Not Detect) U Benzodiazepines Scrn Not Detected (Not Detect) [place] 0.47 L (0.60-1.20) mmol/L Urine Cocaine Screen Not Detected (Not Detect) U Marijuana (THC) Screen Not Detected (Not Detect) Ethyl Alcohol mg/dL COVID-19 ([facility]) Negative (Negative) COVID-19 Clin Com See Note <PRANAV Bacon - Last Filed: 02/14/21 14:36> Lab Results 02/14/21 02/14/21 02/14/21 Range/Units 01:08 01:08 01:08 WBC 12.4 H (4.8-10.8) X10*3/uL RBC 4.54 L (4.60-5.80) X10*6/uL Hgb 13.0 L (14.0-18.0) g/dl Hct 39.7 L (42-52) % MCV 87.4 (80-98) fL MCH 28.6 (27.0-33.0) pg MCHC 32.7 (31.0-36.0) g/dl RDW 13.3 (11.0-16.0) % Plt Count 255 (160-400) X10*3/uL MPV 10.9 (9.4-12.4) fL Immature Gran % (Auto) 0.4 (0.0-0.4) % Neut % (Auto) 59.1 (45-73) % Lymph % (Auto) 26.4 (20-40) % [place] % (Auto) 11.6 H (2-11) % Eos % (Auto) 2.0 (0-4) % Baso % (Auto) 0.5 (0-2) % Lymph # (Auto) 3.3 (1.2-4.9) X10*3/uL [place] # (Auto) 1.4 H (0.1-1.2) X10*3/uL Eos # (Auto) 0.3 (0.0-0.4) X10*3/uL Baso # (Auto) 0.1 (0.0-0.2) X10*3/uL Abs Immat Gran (auto) 0.05 H (0.00-0.03) X10*3/uL Absolute Neuts (auto) 7.3 (2.0-8.3) X10*3/uL Absolute Nucleated RBC 0.000 (0.0-0.012) X10*3/uL Nucleated RBC % (auto) 0.0 (0.0-0.2) /100WBC Sodium 141 (135-145) mmol/L Potassium 3.8 (3.3-5.1) mmol/L Chloride 109 H (96-108) mmol/L Carbon Dioxide 24 (22-29) mmol/L Anion Gap 12 (12-20) BUN 13 D (9-16) mg/dL Creatinine 0.84 (0.5-1.4) mg/dL Estim Creat Clear Calc 157.6 Estimated GFR > 60 Random Glucose 115 (60-115) mg/dL Calcium 9.3 D (8.4-10.2) mg/dL Total Bilirubin 0.2 (0.0-1.0) mg/dL AST 34 (5-37) U/L ALT 50 H (0-40) U/L Alkaline Phosphatase 71 (39-117) U/L Total Protein 6.6 (6.5-8.0) g/dL Albumin 4.2 (3.5-5.0) g/dL Salicylates < 5.0 L (15-30) mg/dL Urine Opiates Screen (Not Detect) Urine Fentanyl Screen (Not Detect) Acetaminophen < 1 (<30) mcg/mL Ur Barbiturates Screen (Not Detect) Ur Phencyclidine Scrn (Not Detect) Ur Amphetamines Screen (Not Detect) U Benzodiazepines Scrn (Not Detect) [place] (0.60-1.20) mmol/L Urine Cocaine Screen (Not Detect) U Marijuana (THC) Screen (Not Detect) Ethyl Alcohol < 10 mg/dL COVID-19 ([facility]) (Negative) COVID-19 Clin Com 02/14/21 02/14/21 02/14/21 Range/Units 01:08 01:13 09:33 WBC (4.8-10.8) X10*3/uL RBC (4.60-5.80) X10*6/uL Hgb (14.0-18.0) g/dl Hct (42-52) % MCV (80-98) fL MCH (27.0-33.0) pg MCHC (31.0-36.0) g/dl RDW (11.0-16.0) % Plt Count (160-400) X10*3/uL MPV (9.4-12.4) fL Immature Gran % (Auto) (0.0-0.4) % Neut % (Auto) (45-73) % Lymph % (Auto) (20-40) % [place] % (Auto) (2-11) % Eos % (Auto) (0-4) % Baso % (Auto) (0-2) % Lymph # (Auto) (1.2-4.9) X10*3/uL [place] # (Auto) (0.1-1.2) X10*3/uL Eos # (Auto) (0.0-0.4) X10*3/uL Baso # (Auto) (0.0-0.2) X10*3/uL Abs Immat Gran (auto) (0.00-0.03) X10*3/uL Absolute Neuts (auto) (2.0-8.3) X10*3/uL Absolute Nucleated RBC (0.0-0.012) X10*3/uL Nucleated RBC % (auto) (0.0-0.2) /100WBC Sodium (135-145) mmol/L Potassium (3.3-5.1) mmol/L Chloride (96-108) mmol/L Carbon Dioxide (22-29) mmol/L Anion Gap (12-20) BUN (9-16) mg/dL Creatinine (0.5-1.4) mg/dL Estim Creat Clear Calc Estimated GFR Random Glucose (60-115) mg/dL Calcium (8.4-10.2) mg/dL Total Bilirubin (0.0-1.0) mg/dL AST (5-37) U/L ALT (0-40) U/L Alkaline Phosphatase (39-117) U/L Total Protein (6.5-8.0) g/dL Albumin (3.5-5.0) g/dL Salicylates (15-30) mg/dL Urine Opiates Screen Not Detected (Not Detect) Urine Fentanyl Screen Not Detected (Not Detect) Acetaminophen (<30) mcg/mL Ur Barbiturates Screen Not Detected (Not Detect) Ur Phencyclidine Scrn Not Detected (Not Detect) Ur Amphetamines Screen Not Detected (Not Detect) U Benzodiazepines Scrn Not Detected (Not Detect) [place] 0.47 L (0.60-1.20) mmol/L Urine Cocaine Screen Not Detected (Not Detect) U Marijuana (THC) Screen Not Detected (Not Detect) Ethyl Alcohol mg/dL COVID-19 ([facility]) Negative (Negative) COVID-19 Clin Com See Note <Zackary Davey MD - Last Filed: 02/14/21 22:09> Lab Results 02/14/21 02/14/21 02/14/21 Range/Units 01:08 01:08 01:08 WBC 12.4 H (4.8-10.8) X10*3/uL RBC 4.54 L (4.60-5.80) X10*6/uL Hgb 13.0 L (14.0-18.0) g/dl Hct 39.7 L (42-52) % MCV 87.4 (80-98) fL MCH 28.6 (27.0-33.0) pg MCHC 32.7 (31.0-36.0) g/dl RDW 13.3 (11.0-16.0) % Plt Count 255 (160-400) X10*3/uL MPV 10.9 (9.4-12.4) fL Immature Gran % (Auto) 0.4 (0.0-0.4) % Neut % (Auto) 59.1 (45-73) % Lymph % (Auto) 26.4 (20-40) % [place] % (Auto) 11.6 H (2-11) % Eos % (Auto) 2.0 (0-4) % Baso % (Auto) 0.5 (0-2) % Lymph # (Auto) 3.3 (1.2-4.9) X10*3/uL [place] # (Auto) 1.4 H (0.1-1.2) X10*3/uL Eos # (Auto) 0.3 (0.0-0.4) X10*3/uL Baso # (Auto) 0.1 (0.0-0.2) X10*3/uL Abs Immat Gran (auto) 0.05 H (0.00-0.03) X10*3/uL Absolute Neuts (auto) 7.3 (2.0-8.3) X10*3/uL Absolute Nucleated RBC 0.000 (0.0-0.012) X10*3/uL Nucleated RBC % (auto) 0.0 (0.0-0.2) /100WBC Sodium 141 (135-145) mmol/L Potassium 3.8 (3.3-5.1) mmol/L Chloride 109 H (96-108) mmol/L Carbon Dioxide 24 (22-29) mmol/L Anion Gap 12 (12-20) BUN 13 D (9-16) mg/dL Creatinine 0.84 (0.5-1.4) mg/dL Estim Creat Clear Calc 157.6 Estimated GFR > 60 Random Glucose 115 (60-115) mg/dL Calcium 9.3 D (8.4-10.2) mg/dL Total Bilirubin 0.2 (0.0-1.0) mg/dL AST 34 (5-37) U/L ALT 50 H (0-40) U/L Alkaline Phosphatase 71 (39-117) U/L Total Protein 6.6 (6.5-8.0) g/dL Albumin 4.2 (3.5-5.0) g/dL Salicylates < 5.0 L (15-30) mg/dL Urine Opiates Screen (Not Detect) Urine Fentanyl Screen (Not Detect) Acetaminophen < 1 (<30) mcg/mL Ur Barbiturates Screen (Not Detect) Ur Phencyclidine Scrn (Not Detect) Ur Amphetamines Screen (Not Detect) U Benzodiazepines Scrn (Not Detect) [place] (0.60-1.20) mmol/L Urine Cocaine Screen (Not Detect) U Marijuana (THC) Screen (Not Detect) Ethyl Alcohol < 10 mg/dL COVID-19 ([facility]) (Negative) COVID-19 Clin Com 02/14/21 02/14/21 02/14/21 Range/Units 01:08 01:13 09:33 WBC (4.8-10.8) X10*3/uL RBC (4.60-5.80) X10*6/uL Hgb (14.0-18.0) g/dl Hct (42-52) % MCV (80-98) fL MCH (27.0-33.0) pg MCHC (31.0-36.0) g/dl RDW (11.0-16.0) % Plt Count (160-400) X10*3/uL MPV (9.4-12.4) fL Immature Gran % (Auto) (0.0-0.4) % Neut % (Auto) (45-73) % Lymph % (Auto) (20-40) % [place] % (Auto) (2-11) % Eos % (Auto) (0-4) % Baso % (Auto) (0-2) % Lymph # (Auto) (1.2-4.9) X10*3/uL [place] # (Auto) (0.1-1.2) X10*3/uL Eos # (Auto) (0.0-0.4) X10*3/uL Baso # (Auto) (0.0-0.2) X10*3/uL Abs Immat Gran (auto) (0.00-0.03) X10*3/uL Absolute Neuts (auto) (2.0-8.3) X10*3/uL Absolute Nucleated RBC (0.0-0.012) X10*3/uL Nucleated RBC % (auto) (0.0-0.2) /100WBC Sodium (135-145) mmol/L Potassium (3.3-5.1) mmol/L Chloride (96-108) mmol/L Carbon Dioxide (22-29) mmol/L Anion Gap (12-20) BUN (9-16) mg/dL Creatinine (0.5-1.4) mg/dL Estim Creat Clear Calc Estimated GFR Random Glucose (60-115) mg/dL Calcium (8.4-10.2) mg/dL Total Bilirubin (0.0-1.0) mg/dL AST (5-37) U/L ALT (0-40) U/L Alkaline Phosphatase (39-117) U/L Total Protein (6.5-8.0) g/dL Albumin (3.5-5.0) g/dL Salicylates (15-30) mg/dL Urine Opiates Screen Not Detected (Not Detect) Urine Fentanyl Screen Not Detected (Not Detect) Acetaminophen (<30) mcg/mL Ur Barbiturates Screen Not Detected (Not Detect) Ur Phencyclidine Scrn Not Detected (Not Detect) Ur Amphetamines Screen Not Detected (Not Detect) U Benzodiazepines Scrn Not Detected (Not Detect) [place] 0.47 L (0.60-1.20) mmol/L Urine Cocaine Screen Not Detected (Not Detect) U Marijuana (THC) Screen Not Detected (Not Detect) Ethyl Alcohol mg/dL COVID-19 ([facility]) Negative (Negative) COVID-19 Clin Com See Note <Marguerite Gonsalez DO - Last Filed: 02/17/21 08:06> Discharge Plan Discharge Clinical Impression: Anxiety <Arik Valencia MD - Last Filed: 02/14/21 00:58> Patient Disposition: Home, Self-Care <Arik Valencia MD - Last Filed: 02/14/21 00:58> Instructions: Anxiety (ED) <Arik Valencia MD - Last Filed: 02/14/21 00:58> Prescriptions: No Action lamotrigine 100 mg Tablet 100 mg PO BID Qty: 60 RF: 0 cholecalciferol (vitamin D3) 25 mcg (1,000 unit) Tablet 125 mcg PO DAILY Qty: 30 RF: 0 lithium carbonate 300 mg capsule 600 mg PO BID RF: 0 lithium carbonate 300 mg Capsule 300 mg PO DAILY@1200 RF: 0 oxcarbazepine 300 mg tablet 750 mg PO BID RF: 0 olanzapine 10 mg Tablet 20 mg PO BEDTIME 30 Days Qty: 60 RF: 0 trazodone 100 mg Tablet 100 mg PO BEDTIME PRN (Reason: insomnia) 10 Days Qty: 10 RF: 0 lorazepam 1 mg Tablet 1 mg PO BID 10 Days Qty: 20 RF: 0 lorazepam 1 mg tablet 1 mg PO BID PRN (Reason: agitation) Qty: 14 RF: 0 haloperidol 5 mg tablet 5 mg PO BID Qty: 14 RF: 0 <Arik Valencia MD - Last Filed: 02/14/21 00:58> Referrals: Physician,Unknown [Primary Care Provider] - 2 days <Arik Valencia MD - Last Filed: 02/14/21 00:58> Interventions: ED Discharge Assessment Last Done: 02/14/21 22:11 <Arik Valencia MD - Last Filed: 02/14/21 00:58> Discharge Date/Time: 02/14/21 22:13 <Arik Valencia MD - Last Filed: 02/14/21 00:58>
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
[2021-02-14 01:18] LABS: Basophils Absolute Auto 0.1 X10*3/uL (0.0-0.2); Basophils Percent Auto 0.5 % (0-2); Eosinophils Absolute Auto 0.3 X10*3/uL (0.0-0.4); Hematocrit 39.7 % (42-52); Imm Gran Abs Auto 0.05 X10*3/uL (0.00-0.03); Imm Gran Pct Auto 0.4 % (0.0-0.4); Lymphocytes Absolute Auto 3.3 X10*3/uL (1.2-4.9); Lymphocytes Percent Auto 26.4 % (20-40); MANUAL DIFF FLAG NO; Mean Corpuscular HGB Conc 32.7 g/dl (31.0-36.0); Mean Corpuscular Hemoglobin 28.6 pg (27.0-33.0); Mean Corpuscular Volume 87.4 fL (80-98); Mean Platelet Volume 10.9 fL (9.4-12.4); Monocytes Absolute Auto 1.4 X10*3/uL (0.1-1.2); Monocytes Percent Auto 11.6 % (2-11); Neutrophils Absolute Auto 7.3 X10*3/uL (2.0-8.3); Neutrophils Percent Auto 59.1 % (45-73); Platelet Count 255 X10*3/uL (160-400); Red Blood Count 4.54 X10*6/uL (4.60-5.80); Red Cell Distribution Width 13.3 % (11.0-16.0); White Blood Count 12.4 X10*3/uL (4.8-10.8)
[2021-02-14 01:34] LABS: COVID-19 Test Negative (Negative)
[2021-02-14 01:34] LABS: Ethanol < 10 mg/dL
[2021-02-14 01:39] LABS: Acetaminophen LAB < 1 mcg/mL (<30); Alanine Aminotransferase 50 U/L (0-40); Albumin Level 4.2 g/dL (3.5-5.0); Alkaline Phosphatase 71 U/L (39-117); Anion Gap 12 (12-20); Aspartate Amino Transferase 34 U/L (5-37); Bilirubin Total 0.2 mg/dL (0.0-1.0); Blood Urea Nitrogen 13 mg/dL (9-16); Calcium 9.3 mg/dL (8.4-10.2); Carbon Dioxide 24 mmol/L (22-29); Chloride 109 mmol/L (96-108); Creatinine Clr Calc Pharmacy 157.6; Estimated Glomerular Filt Rate > 60; Glucose Random 115 mg/dL (60-115); Potassium 3.8 mmol/L (3.3-5.1); Salicylate < 5.0 mg/dL (15-30); Sodium 141 mmol/L (135-145); Total Protein 6.6 g/dL (6.5-8.0)
[2021-02-14 01:45] LABS: Lithium 0.47 mmol/L (0.60-1.20)
--- NOTE | 2021-02-14 06:33 | PC.NURSE ---
Patient is currently in bed appears sleeping, patient is s/p medication restraint due to unsafe behavior, patient behavior is baseline paranoia, unpredictability, requiring continuous redirection, medication compliant, med rec completed pending provider's approval, N referral completed and confirmed by Bulmaro, patient will be assessed in the morning, will continue to monitor.
[2021-02-14] MEDS: Cholecalciferol (Vitamin D3) 25 MCG TABLET 125 MCG PO (08:27)
[2021-02-14] MEDS: Lithium Carbonate 300 MG CAPSULE 600 MG PO ×2 (08:27→20:02)
[2021-02-14] MEDS: LORazepam 1 MG TABLET PO ×2 (08:27→18:38)
[2021-02-14] MEDS: lamoTRIgine 100 MG TABLET PO ×2 (08:27→20:02)
[2021-02-14] MEDS: OXcarbazepine 150 MG TABLET 750 MG PO ×2 (08:27→20:02)
--- NOTE | 2021-02-14 08:35 | PC.NURSE ---
CARE team Norberto meeting with pt at this time. Pt calm and cooperative.
[2021-02-14 09:57] LABS: Amphetamine Screen Urine Not Detected (Not Detect); Barbiturates, Urine Not Detected (Not Detect); Benzodiazepines Screen Urine Not Detected (Not Detect); Cannabinoid Screen Urine Not Detected (Not Detect); Cocaine Screen Urine Not Detected (Not Detect); Fentanyl, urine Not Detected (Not Detect); Opiate Screen Urine Not Detected (Not Detect); Phencyclidine Screen Urine Not Detected (Not Detect)
[2021-02-14] MEDS: diphenhydrAMINE HCL 50 MG/ML VIAL IM (12:05)
[2021-02-14] MEDS: OLANZapine 10 MG VIAL IM (12:05)
--- NOTE | 2021-02-14 12:09 | PC.NURSE ---
Late entry: Pt noted to remove mattress from his bed and blockade the door with it immediately after dumping an entire bottle of baby powder on the floor. Pt wrapped blanket around his hand and started punching his tv and then his mattress repeatedly, security in to pod, order for IM zyprexa and IM benedryl obtained and administered per jul. Pt was cooperative with taking medications. When asked why pt was behaving the way he was the pt stated Because I'm getting impatient and this is how you get a bed . The plan at the time per care team is for an inpatient admission.
--- NOTE | 2021-02-14 12:14 | MHC.CARE ---
1140 - Spoke with pt with on scene security officers. Pt was acting out, expressing his frustrations for the process, and his challenges with his family. He had his mattress propped up against the wall and was hitting it. He had baby powder all over his person and in his hair. Pt calmed after being spoken with. Pt received medication.
--- NOTE | 2021-02-14 12:53 | PC.NURSE ---
Pt refusing vital signs, sidelying in bed right now, resp reg and even, NAD.
--- NOTE | 2021-02-14 13:31 | MHC.CARE ---
Section 12a placed in pt's file while bed search is conducted.
[2021-02-14] MEDS: Lithium Carbonate 300 MG CAPSULE PO (13:39)
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
[2021-02-14] MEDS: HaloperidoL 5 MG TABLET PO (18:38)
[2021-02-14] MEDS: traZODone HCL 100 MG TABLET PO (20:02)
[2021-02-14] MEDS: OLANZapine 10 MG TABLET 20 MG PO (20:02)
== END 2021-02-14 22:13 | disposition home or self-care (01) ==
PROVIDERS: Emergency Provider Emergency Medicine
DX: F20.0 Paranoid schizophrenia (principal); F33.1 Major depressive disorder, recurrent, moderate; Z79.899 Other long term (current) drug therapy; Z20.822 Contact with and (suspected) exposure to COVID-19
CPT/HCPCS: 36415; 80053; 80143; 80178; 80179; 80307; 82077; 85025; 87635; 96372; 99284; 99285; J1200; J2060

== ENCOUNTER 2021-02-15 20:31 | Emergency (ER) | payer OTHER, SELFPAY ==
[2021-02-15 21:14] VITALS: BP 156/81; PULSE 112; RESP 18; TEMP 36.4; O2SAT 95; BMI 35.2
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
--- NOTE | 2021-02-15 22:24 | PC.NURSE ---
father, delilah, is also in hospital. he may have a friend who can provide transport.
[2021-02-15] MEDS: Haloperidol Lactate 5 MG/ML VIAL IM (22:25)
[2021-02-15] MEDS: LORazepam 2 MG/ML VIAL IM (22:25)
== END 2021-02-16 00:42 | disposition home or self-care (01) ==
PROVIDERS: Emergency Provider Emergency Medicine
DX: F31.9 Bipolar disorder, unspecified (principal); Z79.899 Other long term (current) drug therapy
CPT/HCPCS: 96372; 99282; 99284; J2060

== ENCOUNTER 2021-03-04 15:27 | Inpatient (IN) | payer OTHER, SELFPAY ==
[2021-03-04 15:33] VITALS: BP 151/82; PULSE 110; RESP 20; TEMP 36.9; O2SAT 98; BMI 35.9
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
[2021-03-04 16:49] LABS: MANUAL DIFF FLAG NO
[2021-03-04] MEDS: chlorproMAZINE HCl 25 MG TABLET 50 MG PO ×2 (16:49→19:14)
[2021-03-04 16:50] LABS: Basophils Percent Auto 0.4 % (0-2); Eosinophils Absolute Auto 0.2 X10*3/uL (0.0-0.4); Eosinophils Percent Auto 1.4 % (0-4); Hematocrit 41.8 % (42-52); Hemoglobin 13.8 g/dl (14.0-18.0); Imm Gran Abs Auto 0.08 X10*3/uL (0.00-0.03); Imm Gran Pct Auto 0.8 % (0.0-0.4); Lymphocytes Absolute Auto 1.9 X10*3/uL (1.2-4.9); Lymphocytes Percent Auto 17.5 % (20-40); Mean Corpuscular Hemoglobin 28.5 pg (27.0-33.0); Mean Corpuscular Volume 86.4 fL (80-98); Monocytes Absolute Auto 0.9 X10*3/uL (0.1-1.2); Monocytes Percent Auto 8.7 % (2-11); Neutrophils Absolute Auto 7.6 X10*3/uL (2.0-8.3); Neutrophils Percent Auto 71.2 % (45-73); Platelet Count 241 X10*3/uL (160-400); Red Blood Count 4.84 X10*6/uL (4.60-5.80); Red Cell Distribution Width 13.5 % (11.0-16.0); White Blood Count 10.6 X10*3/uL (4.8-10.8)
[2021-03-04 17:06] LABS: Lithium 0.36 mmol/L (0.60-1.20)
[2021-03-04 17:08] LABS: Ethanol < 10 mg/dL
[2021-03-04 17:10] LABS: Amphetamine Screen Urine Not Detected (Not Detect); Barbiturates, Urine Not Detected (Not Detect); Benzodiazepines Screen Urine Not Detected (Not Detect); Cannabinoid Screen Urine Not Detected (Not Detect); Cocaine Screen Urine Not Detected (Not Detect); Fentanyl, urine Not Detected (Not Detect); Opiate Screen Urine Not Detected (Not Detect); Phencyclidine Screen Urine Not Detected (Not Detect)
[2021-03-04 17:11] LABS: Anion Gap 12 (12-20); Blood Urea Nitrogen 13 mg/dL (9-16); Calcium 9.2 mg/dL (8.4-10.2); Carbon Dioxide 24 mmol/L (22-29); Chloride 108 mmol/L (96-108); Creatinine Clr Calc Pharmacy 178.8; Estimated Glomerular Filt Rate > 60; Glucose Random 104 mg/dL (60-115); Potassium 3.9 mmol/L (3.3-5.1); Sodium 140 mmol/L (135-145)
[2021-03-04 17:23] LABS: COVID-19 Test Negative (Negative)
--- NOTE | 2021-03-04 18:21 | PC.NURSE ---
[facility] intake called and stated they will be able to see PT on overnight, she stated that if one of the other consults they have fall through they will see him sooner.
[2021-03-04] MEDS: Lithium Carbonate 300 MG CAPSULE 600 MG PO (19:41)
[2021-03-04] MEDS: OXcarbazepine 300 MG TABLET 750 MG PO (19:42)
[2021-03-04] MEDS: lamoTRIgine 100 MG TABLET PO (19:42)
[2021-03-04] MEDS: OLANZapine 10 MG TABLET 20 MG PO (19:42)
[2021-03-04] MEDS: traZODone HCL 100 MG TABLET PO (19:42)
--- NOTE | 2021-03-04 20:04 | MHC.CARE ---
Pt was seen by the CARE team, pt is an voluntary inpatient bedsearch at this time.
[2021-03-04 21:02] VITALS: BP 155/89; PULSE 106; RESP 18; TEMP 36.8; O2SAT 96
[2021-03-04] MEDS: HaloperidoL 5 MG TABLET PO (22:11)
[2021-03-04] MEDS: LORazepam 1 MG TABLET PO (22:11)
[2021-03-04] MEDS: diphenhydrAMINE HCL 25 MG TABLET 50 MG PO (22:18)
[2021-03-05] MEDS: Magnesium Hydrox/Alum Hydrox 30 ML ORAL.SUSP PO (01:53)
[2021-03-05 02:45] VITALS: BP 138/76; PULSE 88; RESP 18; TEMP 36.8; O2SAT 94
--- NOTE | 2021-03-05 06:42 | PC.NURSE ---
Patient slept through the night, no distress observed/reported, VSS, behavior at baseline but unpredictable, no episode of aggression, medication compliant, patient got evaluated by care team, disposition is section 12 inpatient bed search, will continue to monitor.
--- NOTE | 2021-03-05 07:02 | PC.NURSE ---
patient appears to remain asleep at present, respirations are even and unlabored, was awake at arrival of t/w. patient appears in no distress
[2021-03-05] MEDS: lamoTRIgine 100 MG TABLET PO ×2 (08:27→22:13)
[2021-03-05] MEDS: Lithium Carbonate 300 MG CAPSULE 600 MG PO ×2 (08:28→22:13)
[2021-03-05] MEDS: OXcarbazepine 300 MG TABLET 750 MG PO ×2 (08:28→22:15)
[2021-03-05 09:52] VITALS: BP 126/70; PULSE 87; RESP 16; TEMP 37.1; O2SAT 96
[2021-03-05] MEDS: HaloperidoL 5 MG TABLET PO (10:14)
[2021-03-05] MEDS: LORazepam 1 MG TABLET PO (10:15)
[2021-03-05] MEDS: Lithium Carbonate 300 MG CAPSULE PO (12:16)
[2021-03-05 18:00] VITALS: BP 120/70; PULSE 76; RESP 18; TEMP 36.3; O2SAT 100
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
[2021-03-05] MEDS: OLANZapine 10 MG TABLET 20 MG PO (22:14)
[2021-03-06 05:28] VITALS: BP 146/64; PULSE 76; RESP 18; TEMP 36.6; O2SAT 97
[2021-03-06 07:00] VITALS: BMI 37.1
[2021-03-06] MEDS: OXcarbazepine 300 MG TABLET 750 MG PO ×2 (08:00→20:20)
[2021-03-06] MEDS: OLANZapine 10 MG TABLET 20 MG PO ×2 (08:01→20:21)
[2021-03-06] MEDS: Lithium Carbonate 300 MG CAPSULE 600 MG PO ×2 (08:01→20:21)
[2021-03-06] MEDS: lamoTRIgine 100 MG TABLET PO ×2 (08:02→20:20)
[2021-03-06] MEDS: chlorproMAZINE HCl 100 MG TABLET PO (11:00)
--- NOTE | 2021-03-06 11:08 | PC.NURSE ---
Pt signed 03/06/20 up on Wednesday03/11/21. ,LUCIE,ST palomo.
[2021-03-06] MEDS: Lithium Carbonate 300 MG CAPSULE PO (11:16)
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
[2021-03-06] MEDS: chlorproMAZINE HCl 25 MG TABLET 50 MG PO (17:57)
[2021-03-06 18:00] VITALS: BP 140/80; PULSE 82; RESP 16; TEMP 36.9; O2SAT 98
[2021-03-07 06:00] VITALS: BP 140/93; PULSE 98; RESP 16; TEMP 35.8; O2SAT 97
[2021-03-07] MEDS: Lithium Carbonate 300 MG CAPSULE 600 MG PO (08:17)
[2021-03-07] MEDS: OXcarbazepine 300 MG TABLET 750 MG PO ×2 (08:18→19:48)
[2021-03-07] MEDS: OLANZapine 10 MG TABLET 20 MG PO ×2 (08:18→19:48)
[2021-03-07] MEDS: lamoTRIgine 100 MG TABLET PO ×2 (08:18→19:48)
--- NOTE | 2021-03-07 10:03 | P.PNPSI_ITS ---
Subjective Subjective Date of Service: 03/08/21 Reason For Visit: Psychosis Agitation Subjective Notes: 3 Day Interim History: Pt appears somewhat calmer, asking to speak with this senior underwriter. Pt initially reported that he did not want any medication changes in that he does not want increase dose of olanzapine. However, he has been taking 20mg po BID, and does admit that voices have decreased and he is much calmer. He later agreed to continue Olanzapine 20mg po BID. He does have thorazine for agitation which does help. He denies SI/HI. Per nursing, pt walking, calmer in [place]. He did sleep through the night last night. No behavioral outburst. Medication Compliance: Yes Side effects from medications: No Review of Systems Review of Systems No fever no chills no chest pain or shortness breath no diaphoresis. Yes all other systems are reviewed and are negative Constitutional: Reports difficulty sleeping Eyes: Reports no additional eye complaints Cardiovascular: Denies chest pain, Denies chest pain at rest, Denies chest pain with activity, Denies rapid heart rate, Denies lightheadedness and Denies dyspnea Respiratory: Denies dyspnea Gastrointestinal: Denies constipation, Denies diarrhea and Denies vomiting Mental Status Exam Mental Status Exam Narrative: Appearance: casually groomed, fair hygiene in NAD Behavior: guarded, easily irritable and labile, intense eye contact psychomotor:restless, pacing Speech:mumbles at times, some delayed in response rate, spontaneous Thought process:derailment Thought content:paranoid delusions of ppl killing children, grandiose delusions Mood: good Affect: labile SI:denies HI:towards whoever hurt children VH/AH:internally preoccupied Delusions:paranoid/grandiose Insight/judgment:impaired x 2. Memory/cog: alert, impaired secondary to psychiatric symptoms. Diagnostics Vital Signs (24Hr): Vital Signs - 24 hr 03/07/21 16:30 03/08/21 06:00 Temperature 97.7 F 97.6 F Pulse Rate 101 H 101 H Respiratory Rate 18 Blood Pressure 139/77 139/65 Pulse Oximetry 97 Body Mass Index 37.1 Labs Results: 03/04/21 16:42 03/04/21 16:42 Medications Medications Current Medications Acetaminophen (Acetaminophen 325 Mg Tablet) 650 mg PO Q6H PRN PRN Reason: Headache/Pain Mild Scale (1-3) Al Hydroxide/Mg Hydroxide (Magnesium Hydrox/Alum Hydrox 30 Ml Oral.Susp) 30 ml PO Q6H PRN PRN Reason: Heartburn/Nausea Chlorpromazine HCl (Chlorpromazine Hcl 100 Mg Tablet) 100 mg PO Q4H PRN PRN Reason: agitation Last Admin: 03/08/21 05:39 Dose: 100 mg Documented by: Hydroxyzine HCl (Hydroxyzine Hcl 50 Mg Tablet) 50 mg PO Q6H PRN PRN Reason: Anxiety/sleep Lamotrigine (Lamotrigine 100 Mg Tablet) 100 mg PO BID [facility] Last Admin: 03/08/21 08:59 Dose: 100 mg Documented by: [place] Carbonate ([place] Carbonate 300 Mg Capsule) 600 mg PO DAILY [facility] Last Admin: 03/08/21 09:00 Dose: 600 mg Documented by: [place] Carbonate ([place] Carbonate 300 Mg Capsule) 900 mg PO BEDTIME [facility] Last Admin: 03/07/21 19:47 Dose: 900 mg Documented by: Magnesium Hydroxide (Milk Of Magnesia 30 Ml Oral.Susp) 30 ml PO DAILY PRN PRN Reason: Constipation Olanzapine (Olanzapine 10 Mg Tablet) 20 mg PO BID [facility] Last Admin: 03/08/21 09:00 Dose: 20 mg Documented by: Oxcarbazepine (Oxcarbazepine 300 Mg Tablet) 750 mg PO BID [facility] Last Admin: 03/08/21 08:58 Dose: 750 mg Documented by: Trazodone HCl (Trazodone Hcl 100 Mg Tablet) 100 mg PO BEDTIME PRN PRN Reason: insomnia Last Admin: 03/04/21 19:42 Dose: 100 mg Documented by: Trazodone HCl (Trazodone Hcl 50 Mg Tablet) 50 mg PO BEDTIME PRN PRN Reason: Insomnia Allergies Allergies Allergy/AdvReac Type Severity Reaction Status Date / Time fluoxetine AdvReac Severe giuliana Verified 03/04/21 15:32 chlorpromazine AdvReac Intermediate sleep Verified 03/04/21 15:32 [From Thorazine] walking Assessment & Plan Assessment & Plan (1) Schizoaffective disorder, bipolar type: Status: Acute Code(s): F25.0 - Schizoaffective disorder, bipolar type Assessment and Plan: Mr. Mcdaniels is a 21 year-old male with hx of schizoaffective disorder bipolar type who is known to [facility] through several admission with similar presentation. he was last discharged on 02/17 from [facility]. He was brought to [facility] ED by mother as pt reported increase AH of children who have been kidnapped and wanting to go to [place] to kill kim who he suspects is hurting children. Pt also reports sensing who may be hurting children and feeling as if is his duty to kill them. After discussing risks, benefits and alternative treatment options, pt decline further medications changes. He is currently on combination of trileptal, lithium, olanzapine. He has thorazine PRN which has helped him in past in events of acute agitation. PLAN 1. Admit to [facility]/ 3 day notice up 03/11 2. Continue Olazanpine to 20mg po BID 3. Continue [place] 600mg po daily and 900mg po qhs. 4. Thorazine 100mg po q4hrs prn agitation 5. Obtain collateral information 6. aftercare planning. 7. consider filing civil commitment as pt ongoing agitation, psychosis despite current treatment but not open to medication changes. Greater than 50% of the session was spent on counseling and/or coordination of care Reason for contiued inpatient stay Substantial Risk for: harm to others and inability to function
[2021-03-07] MEDS: chlorproMAZINE HCl 100 MG TABLET PO ×2 (10:54→16:08)
[2021-03-07] MEDS: Lithium Carbonate 300 MG CAPSULE PO (11:47)
[2021-03-07 16:30] VITALS: BP 139/77; PULSE 101; TEMP 36.5
[2021-03-07] MEDS: Lithium Carbonate 300 MG CAPSULE 900 MG PO (19:47)
[2021-03-08] MEDS: chlorproMAZINE HCl 100 MG TABLET PO ×3 (05:39→15:50)
[2021-03-08 06:00] VITALS: BP 139/65; PULSE 101; RESP 18; TEMP 36.4; O2SAT 97
[2021-03-08] MEDS: OXcarbazepine 300 MG TABLET 750 MG PO ×2 (08:58→21:04)
[2021-03-08] MEDS: lamoTRIgine 100 MG TABLET PO ×2 (08:59→21:05)
[2021-03-08] MEDS: OLANZapine 10 MG TABLET 20 MG PO ×2 (09:00→21:05)
[2021-03-08] MEDS: Lithium Carbonate 300 MG CAPSULE 600 MG PO (09:00)
[2021-03-08] MEDS: Lithium Carbonate 300 MG CAPSULE 900 MG PO (21:05)
[2021-03-08 21:10] VITALS: BP 134/64; PULSE 101; TEMP 36.2
--- NOTE | 2021-03-08 22:19 | HO.PSYCHPN ---
Subjective Subjective Date of Service: 03/08/21 Reason For Visit: Psychosis Agitation Subjective Notes: Nguyen Warning and 3 Day Interim History: Patient with periodic agitation worries about children but calmer less agitated was not threatening Mental Status Exam Mental Status Exam Narrative: Appearance: casually groomed, fair hygiene in NAD Behavior: guarded, easily irritable and labile, intense eye contact psychomotor:restless, pacing Speech:mumbles at times, some delayed in response rate, spontaneous Thought process:derailment Thought content:paranoid delusions of ppl killing children, grandiose delusions Mood: good Affect: labile SI:denies HI:towards whoever hurt children VH/AH:internally preoccupied Delusions:paranoid/grandiose Insight/judgment:impaired x 2. Memory/cog: alert, impaired secondary to psychiatric symptoms. Diagnostics Vital Signs (24Hr): Vital Signs - 24 hr 03/08/21 06:00 Temperature 97.6 F Pulse Rate 101 H Respiratory Rate 18 Blood Pressure 139/65 Pulse Oximetry 97 Body Mass Index 37.1 Labs Results: 03/04/21 16:42 03/04/21 16:42 Medications Medications Current Medications Acetaminophen (Acetaminophen 325 Mg Tablet) 650 mg PO Q6H PRN PRN Reason: Headache/Pain Mild Scale (1-3) Al Hydroxide/Mg Hydroxide (Magnesium Hydrox/Alum Hydrox 30 Ml Oral.Susp) 30 ml PO Q6H PRN PRN Reason: Heartburn/Nausea Chlorpromazine HCl (Chlorpromazine Hcl 100 Mg Tablet) 100 mg PO Q4H PRN PRN Reason: agitation Last Admin: 03/08/21 15:50 Dose: 100 mg Documented by: Hydroxyzine HCl (Hydroxyzine Hcl 50 Mg Tablet) 50 mg PO Q6H PRN PRN Reason: Anxiety/sleep Lamotrigine (Lamotrigine 100 Mg Tablet) 100 mg PO BID [facility] Last Admin: 03/08/21 21:05 Dose: 100 mg Documented by: Mora Carbonate (Mora Carbonate 300 Mg Capsule) 600 mg PO DAILY [facility] Last Admin: 03/08/21 09:00 Dose: 600 mg Documented by: Mora Carbonate (Mora Carbonate 300 Mg Capsule) 900 mg PO BEDTIME [facility] Last Admin: 03/08/21 21:05 Dose: 900 mg Documented by: Magnesium Hydroxide (Milk Of Magnesia 30 Ml Oral.Susp) 30 ml PO DAILY PRN PRN Reason: Constipation Olanzapine (Olanzapine 10 Mg Tablet) 20 mg PO BID [facility] Last Admin: 03/08/21 21:05 Dose: 20 mg Documented by: Oxcarbazepine (Oxcarbazepine 300 Mg Tablet) 750 mg PO BID [facility] Last Admin: 03/08/21 21:04 Dose: 750 mg Documented by: Trazodone HCl (Trazodone Hcl 100 Mg Tablet) 100 mg PO BEDTIME PRN PRN Reason: insomnia Last Admin: 03/04/21 19:42 Dose: 100 mg Documented by: Trazodone HCl (Trazodone Hcl 50 Mg Tablet) 50 mg PO BEDTIME PRN PRN Reason: Insomnia Allergies Allergies Allergy/AdvReac Type Severity Reaction Status Date / Time fluoxetine AdvReac Severe giuliana Verified 03/04/21 15:32 chlorpromazine AdvReac Intermediate sleep Verified 03/04/21 15:32 [From Thorazine] walking Assessment & Plan Assessment & Plan (1) Schizoaffective disorder, bipolar type: Status: Acute Code(s): F25.0 - Schizoaffective disorder, bipolar type Assessment and Plan: Mr. Mcdaniels is a 21 year-old male with hx of schizoaffective disorder bipolar type who is known to [facility] through several admission with similar presentation. he was last discharged on 02/17 from [facility]. He was brought to [facility] ED by mother as pt reported increase AH of children who have been kidnapped and wanting to go to [place] to kill cartel who he suspects is hurting children. Pt also reports sensing who may be hurting children and feeling as if is his duty to kill them. After discussing risks, benefits and alternative treatment continue plan of care patient doing better on Trileptal olanzapine has been medication compliant less agitated less psychotically preoccupied. Three day notice remains in effect evaluate safety Greater than 50% of the session was spent on counseling and/or coordination of care Reason for contiued inpatient stay Substantial Risk for: harm to others and rapid decompensation
[2021-03-09] MEDS: traZODone HCL 100 MG TABLET PO (02:29)
[2021-03-09] MEDS: lamoTRIgine 100 MG TABLET PO ×2 (08:00→19:09)
[2021-03-09] MEDS: Lithium Carbonate 300 MG CAPSULE 600 MG PO (08:00)
[2021-03-09] MEDS: OXcarbazepine 300 MG TABLET 750 MG PO ×2 (08:00→19:09)
[2021-03-09] MEDS: OLANZapine 10 MG TABLET 20 MG PO ×2 (08:00→19:09)
[2021-03-09] MEDS: Throat Lozenge, Medicated LOZENGE 1 LOZENGE MUCOUS MEM ×3 (08:22→15:14)
[2021-03-09 08:47] VITALS: BP 130/58; PULSE 88; RESP 17; TEMP 36.8; O2SAT 95
[2021-03-09] MEDS: chlorproMAZINE HCl 100 MG TABLET PO ×3 (10:49→19:09)
[2021-03-09 16:11] VITALS: BP 146/67; PULSE 107; TEMP 37.1
[2021-03-09] MEDS: Lithium Carbonate 300 MG CAPSULE 900 MG PO (19:09)
--- NOTE | 2021-03-09 20:51 | HO.PSYCHPN ---
Subjective Subjective Date of Service: 03/09/21 Reason For Visit: Psychosis Agitation Subjective Notes: Conditional Voluntary and 3 Day Guardianship: No Interim History: PATIENT HAS BEEN CALMER COOPERATIVE AGREEABLE TO TAKING HIGHER DOSE OLANZAPINE STATING HE FEELS BETTER ON THIS DOSE ABLE TO DISCUSS LITHIUM Medication Compliance: Yes Attending Groups: No Review of Systems Acute medical concerns: No Mental Status Exam Mental Status Exam Narrative: Appearance: casually groomed, fair hygiene in NAD Behavior: guarded, easily irritable and labile, intense eye contact psychomotor:restless, pacing Speech:mumbles at times, some delayed in response rate, spontaneous Thought process: WAS ORGANIZED IN THOUGHT Thought conTENT NOT PREOCCUPIED WITH DELUSIONAL MATERIAL WHEN SEEN Mood: good Affect: labile SI:denies HI:towards whoever hurt children VH/AH:internally preoccupied Delusions:paranoid/grandiose Insight/judgment:impaired x 2. Memory/cog: alert, impaired secondary to psychiatric symptoms. Diagnostics Vital Signs (24Hr): Vital Signs - 24 hr 03/08/21 21:10 03/09/21 08:47 03/09/21 16:11 Temperature 97.2 F 98.2 F 98.8 F Pulse Rate 101 H 88 107 H Respiratory Rate 17 Blood Pressure 134/64 130/58 L 146/67 H Pulse Oximetry 95 Body Mass Index 37.1 Labs Results: 03/04/21 16:42 03/04/21 16:42 Medications Medications Current Medications Acetaminophen (Acetaminophen 325 Mg Tablet) 650 mg PO Q6H PRN PRN Reason: Headache/Pain Mild Scale (1-3) Al Hydroxide/Mg Hydroxide (Magnesium Hydrox/Alum Hydrox 30 Ml Oral.Susp) 30 ml PO Q6H PRN PRN Reason: Heartburn/Nausea Benzocaine (Throat Lozenge, Medicated Lozenge) 1 lozenge MUCOUS MEM Q2H PRN PRN Reason: Sore Throat Last Admin: 03/09/21 15:14 Dose: 1 lozenge Documented by: Chlorpromazine HCl (Chlorpromazine Hcl 100 Mg Tablet) 100 mg PO Q4H PRN PRN Reason: agitation Last Admin: 03/09/21 19:09 Dose: 100 mg Documented by: Hydroxyzine HCl (Hydroxyzine Hcl 50 Mg Tablet) 50 mg PO Q6H PRN PRN Reason: Anxiety/sleep Lamotrigine (Lamotrigine 100 Mg Tablet) 100 mg PO BID [facility] Last Admin: 03/09/21 19:09 Dose: 100 mg Documented by: [place] Carbonate ([place] Carbonate 300 Mg Capsule) 600 mg PO DAILY [facility] Last Admin: 03/09/21 08:00 Dose: 600 mg Documented by: [place] Carbonate ([place] Carbonate 300 Mg Capsule) 900 mg PO BEDTIME [facility] Last Admin: 03/09/21 19:09 Dose: 900 mg Documented by: Magnesium Hydroxide (Milk Of Magnesia 30 Ml Oral.Susp) 30 ml PO DAILY PRN PRN Reason: Constipation Olanzapine (Olanzapine 10 Mg Tablet) 20 mg PO BID [facility] Last Admin: 03/09/21 19:09 Dose: 20 mg Documented by: Oxcarbazepine (Oxcarbazepine 300 Mg Tablet) 750 mg PO BID [facility] Last Admin: 03/09/21 19:09 Dose: 750 mg Documented by: Trazodone HCl (Trazodone Hcl 100 Mg Tablet) 100 mg PO BEDTIME PRN PRN Reason: insomnia Last Admin: 03/09/21 02:29 Dose: 100 mg Documented by: Trazodone HCl (Trazodone Hcl 50 Mg Tablet) 50 mg PO BEDTIME PRN PRN Reason: Insomnia Allergies Allergies Allergy/AdvReac Type Severity Reaction Status Date / Time fluoxetine AdvReac Severe giuliana Verified 03/04/21 15:32 chlorpromazine AdvReac Intermediate sleep Verified 03/04/21 15:32 [From Thorazine] walking Assessment & Plan Assessment & Plan (1) Schizoaffective disorder, bipolar type: Status: Acute Code(s): F25.0 - Schizoaffective disorder, bipolar type Assessment and Plan: Patient has 3 day notice patient has been accepting treatment not overly aggressive somewhat expansive but was much decrease in psychotic preoccupation denied wanting to hurt other continue lithium and olanzapine Greater than 50% of the session was spent on counseling and/or coordination of care Reason for contiued inpatient stay Substantial Risk for: harm to others and rapid decompensation
[2021-03-09] MEDS: hydrOXYzine HCL 50 MG TABLET PO (22:25)
[2021-03-10] MEDS: chlorproMAZINE HCl 100 MG TABLET PO ×2 (03:08→21:16)
[2021-03-10] MEDS: Throat Lozenge, Medicated LOZENGE 1 LOZENGE MUCOUS MEM ×3 (03:10→19:34)
[2021-03-10 06:00] VITALS: BP 111/57; PULSE 87; RESP 20; TEMP 36.8; O2SAT 96
[2021-03-10] MEDS: OXcarbazepine 300 MG TABLET 750 MG PO ×2 (08:05→19:27)
[2021-03-10] MEDS: Lithium Carbonate 300 MG CAPSULE 600 MG PO (08:05)
[2021-03-10] MEDS: lamoTRIgine 100 MG TABLET PO ×2 (08:05→19:27)
[2021-03-10] MEDS: OLANZapine 10 MG TABLET 20 MG PO ×2 (08:05→19:26)
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
[2021-03-10 18:00] VITALS: BP 138/70; PULSE 65
[2021-03-10] MEDS: Lithium Carbonate 300 MG CAPSULE 900 MG PO (19:27)
[2021-03-10] MEDS: traZODone HCL 100 MG TABLET PO (21:40)
[2021-03-11] MEDS: Throat Lozenge, Medicated LOZENGE 1 LOZENGE MUCOUS MEM ×2 (05:40→08:21)
[2021-03-11 06:00] VITALS: BP 145/70; PULSE 84; RESP 18; TEMP 36.1; O2SAT 99
[2021-03-11] MEDS: lamoTRIgine 100 MG TABLET PO (07:56)
[2021-03-11] MEDS: OLANZapine 10 MG TABLET 20 MG PO (07:56)
[2021-03-11] MEDS: Lithium Carbonate 300 MG CAPSULE 600 MG PO (07:56)
[2021-03-11] MEDS: OXcarbazepine 300 MG TABLET 750 MG PO (07:57)
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
== END 2021-03-11 10:50 | disposition home or self-care (01) | DRG 885 ==
LOC: HO.ED 03-05 01:32 → HO.PM5 03-05 16:25
PROVIDERS: Admitting Provider Psychiatry & Neurology Psychiatry; Emergency Provider Emergency Medicine Emergency Medical Services; PCP Physician Assistant; Visit Provider Social Worker
DX: F25.0 Schizoaffective disorder, bipolar type (principal); Z20.822 Contact with and (suspected) exposure to COVID-19; Z79.899 Other long term (current) drug therapy
CPT/HCPCS: 36415; 80048; 80178; 80307; 82077; 85025; 87635; 99285; Q0163

== ENCOUNTER 2021-06-17 11:30 | Outpatient (REF) | payer OTHER, SELFPAY ==
[2021-06-17 12:08] LABS: MANUAL DIFF FLAG NO
[2021-06-17 12:20] LABS: Basophils Absolute Auto 0.1 X10*3/uL (0.0-0.2); Basophils Percent Auto 0.7 % (0-2); Eosinophils Absolute Auto 0.2 X10*3/uL (0.0-0.4); Eosinophils Percent Auto 3.1 % (0-4); Hematocrit 45.9 % (42.0-52.0); Imm Gran Abs Auto 0.02 X10*3/uL (0.00-0.03); Imm Gran Pct Auto 0.3 % (0.0-0.4); Lymphocytes Percent Auto 27.6 % (20-40); Mean Corpuscular HGB Conc 32.7 g/dl (31.0-36.0); Mean Corpuscular Hemoglobin 27.7 pg (27.0-33.0); Mean Corpuscular Volume 84.7 fL (80.0-98.0); Mean Platelet Volume 11.3 fL (9.4-12.4); Monocytes Absolute Auto 0.8 X10*3/uL (0.1-1.2); Monocytes Percent Auto 10.2 % (2-11); Neutrophils Absolute Auto 4.3 x10*3/uL (2.0-8.3); Neutrophils Percent Auto 58.1 % (45-73); Platelet Count 262 X10*3/uL (160-400); Red Blood Count 5.42 X10*6/uL (4.60-5.80); Red Cell Distribution Width 13.2 % (11.0-16.0); White Blood Count 7.3 X10*3/uL (4.8-10.8)
[2021-06-17 12:57] LABS: Alanine Aminotransferase 26 U/L (0-40); Albumin Level 4.8 g/dL (3.5-5.0); Alkaline Phosphatase 67 U/L (39-117); Anion Gap 12 (12-20); Aspartate Amino Transferase 19 U/L (5-37); Bilirubin Total 0.5 mg/dL (0.0-1.0); Blood Urea Nitrogen 8 mg/dL (9-16); Calcium 10.2 mg/dL (8.4-10.2); Carbon Dioxide 24 mmol/L (22-29); Chloride 108 mmol/L (96-108); Estimated Glomerular Filt Rate > 60; Glucose Random 103 mg/dL (60-115); Potassium 4.2 mmol/L (3.3-5.1); Sodium 140 mmol/L (135-145); Total Protein 7.7 g/dL (6.5-8.0)
[2021-06-17 13:05] LABS: Erythrocyte Sedimentation Rate 1 MM/HR (0-15)
[2021-06-17 13:21] LABS: Free T4 (Free Thyroxine) 0.76 ng/dL (0.71-1.85); T4 Thyroxine 4.5 ug/dL (4.5-12.0); Thyroid Stimulating Hormone 1.62 uIU/mL (0.32-4.0)
[2021-06-17 13:51] LABS: Vitamin D 25-OH Total 58.8 ng/mL (>30)
[2021-06-17 14:46] LABS: Folate 17.8 ng/mL (> or = 4.0)
[2021-06-17 15:38] LABS: Vitamin B12 361 pg/mL (200-900)
[2021-06-18 18:37] LABS: Triiodothyronine T3 Free 3.5 pg/mL (2.3-4.2); Triiodothyronine T3 Total 104 ng/dL (76-181)
[2021-06-18 21:25] LABS: Thyroid Peroxidase Antibodies <1 IU/mL (<9)
[2021-06-22 10:42] LABS: Triiodothyronine T3 Reverse 13 ng/dL (8-25)
[2021-06-22 12:16] LABS: Vitamin B6 14.7 ng/mL (2.1-21.7)
== END 2021-06-17 11:31 | disposition home or self-care (01) ==
LOC: HO.LAB 11:30
PROVIDERS: PCP Physician Assistant; Visit Provider Psychiatry & Neurology Psychiatry
DX: F31.9 Bipolar disorder, unspecified (principal); R53.83 Other fatigue
CPT/HCPCS: 36415; 80053; 82306; 82607; 82746; 84207; 84436; 84439; 84443; 84480; 84481; 84482; 85025; 85652; 86376

== ENCOUNTER 2021-06-30 15:16 | Outpatient (REF) | payer OTHER, SELFPAY ==
[2021-06-30 16:30] LABS: T4 Thyroxine 4.9 ug/dL (4.5-12.0); Thyroid Stimulating Hormone 1.48 uIU/mL (0.32-4.0)
[2021-07-02 22:37] LABS: Triiodothyronine T3 Free 3.3 pg/mL (2.3-4.2); Triiodothyronine T3 Total 81 ng/dL (76-181)
[2021-07-03 01:57] LABS: Thyroid Peroxidase Antibodies <1 IU/mL (<9)
[2021-07-08 14:57] LABS: Triiodothyronine T3 Reverse 13 ng/dL (8-25)
== END 2021-06-30 15:17 | disposition home or self-care (01) ==
LOC: HO.LAB 15:16
PROVIDERS: PCP Physician Assistant; Visit Provider Psychiatry & Neurology Psychiatry
DX: E03.9 Hypothyroidism, unspecified (principal)
CPT/HCPCS: 36415; 84436; 84439; 84443; 84480; 84481; 84482; 86376

== ENCOUNTER 2021-09-10 12:06 | Outpatient (REF) | payer OTHER, SELFPAY ==
[2021-09-10 12:33] LABS: Binax Internal Control QC Valid; Binax Now Covid-19 Ag Negative (Negative)
[2021-09-10 17:53] LABS: Influenza A PCR POSITIVE (Negative); Influenza B PCR NEGATIVE (Negative); Resp Syncy Virus RNA Qual PCR NEGATIVE (Negative); SARS COV2 PCR INHOUSE NEGATIVE (Negative)
== END 2021-09-10 12:07 | disposition home or self-care (01) ==
LOC: HO.HMGCLDS 12:06
PROVIDERS: Visit Provider Nurse Practitioner Family
DX: Z20.822 Contact with and (suspected) exposure to COVID-19 (principal); R51.9 Headache, unspecified; R09.89 Other specified symptoms and signs involving the circulatory and respiratory systems
CPT/HCPCS: 0241U

== ENCOUNTER 2021-11-12 10:49 | Outpatient (REF) | payer OTHER, SELFPAY | END 2021-11-12 10:50 | disposition home or self-care (01) | LOC: HO.LAB 10:49 | PROVIDERS: PCP Physician Assistant; Visit Provider Psychiatry & Neurology Psychiatry | DX: F31.9 Bipolar disorder, unspecified (principal); Z79.899 Other long term (current) drug therapy | CPT/HCPCS: 36415; 80178 ==

== ENCOUNTER 2022-04-08 12:56 | Outpatient (REF) | payer OTHER, SELFPAY ==
[2022-04-08 15:04] LABS: Alanine Aminotransferase 19 U/L (0-40); Albumin Level 4.9 g/dL (3.5-5.0); Alkaline Phosphatase 62 U/L (39-117); Anion Gap 13 (12-20); Aspartate Amino Transferase 19 U/L (5-37); Bilirubin Total 0.7 mg/dL (0.0-1.0); Blood Urea Nitrogen 11 mg/dL (9-16); Carbon Dioxide 24 mmol/L (22-29); Chloride 106 mmol/L (96-108); Estimated Glomerular Filt Rate > 60; Glucose Random 93 mg/dL (60-115); Potassium 4.6 mmol/L (3.3-5.1); Sodium 138 mmol/L (135-145); Total Protein 7.4 g/dL (6.5-8.0)
[2022-04-08 15:24] LABS: Folate 15.7 ng/mL (> or = 4.0); Vitamin B12 277 pg/mL (200-900)
[2022-04-08 15:55] LABS: Vitamin D 25-OH Total 84.5 ng/mL (>30)
[2022-04-10 13:36] LABS: Immunoglobulin A 162 mg/dL (47-310)
[2022-04-12 17:15] LABS: Endomysial IgA Antibody Negative (Negative); Vitamin B6 27.7 ng/mL (2.1-21.7)
[2022-04-14 08:55] LABS: Gliadin Deamidated IgA Ab <1.0 U/mL; Gliadin Deamidated IgG Ab <1.0 U/mL; Transglutaminase Ab IgG <1.0 U/mL; Transglutaminase IgA <1.0 U/mL
== END 2022-04-08 12:57 | disposition home or self-care (01) ==
LOC: HO.LAB 12:56
PROVIDERS: PCP Physician Assistant; Visit Provider Psychiatry & Neurology Psychiatry
DX: R53.82 Chronic fatigue, unspecified (principal); E55.9 Vitamin D deficiency, unspecified
CPT/HCPCS: 36415; 80053; 82306; 82607; 82746; 82784; 84207; 86231; 86258; 86364

== ENCOUNTER 2022-07-02 11:46 | Outpatient (REF) | payer OTHER, SELFPAY ==
[2022-07-02 13:13] LABS: Hematocrit 44.4 % (42.0-52.0); Hemoglobin 14.5 g/dl (14.0-18.0); Mean Corpuscular HGB Conc 32.7 g/dl (31.0-36.0); Mean Corpuscular Hemoglobin 28.3 pg (27.0-33.0); Mean Corpuscular Volume 86.7 fL (80.0-98.0); Mean Platelet Volume 12.5 fL (9.4-12.4); Platelet Count 227 X10*3/uL (160-400); Red Blood Count 5.12 X10*6/uL (4.60-5.80); White Blood Count 7.1 X10*3/uL (4.8-10.8)
[2022-07-02 13:54] LABS: Alanine Aminotransferase 19 U/L (0-40); Albumin Level 4.8 g/dL (3.5-5.0); Alkaline Phosphatase 56 U/L (39-117); Anion Gap 13 (12-20); Aspartate Amino Transferase 21 U/L (5-37); Bilirubin Total 0.7 mg/dL (0.0-1.0); Blood Urea Nitrogen 13 mg/dL (9-16); Carbon Dioxide 25 mmol/L (22-29); Chloride 107 mmol/L (96-108); Estimated Glomerular Filt Rate > 60; Glucose Fasting 82 mg/dL (60-99); Potassium 4.3 mmol/L (3.3-5.1); Sodium 141 mmol/L (135-145)
[2022-07-02 14:13] LABS: TSH reflex Free T4 1.04 uIU/mL (0.32-4.0)
[2022-07-02 14:55] LABS: CT PCR NOT DETECTED (Not Detect.); NG PCR NOT DETECTED (Not Detect.)
[2022-07-03 04:45] LABS: Syphilis Screen Nonreactive (Nonreactive)
[2022-07-03 07:11] LABS: HBS Num1 34.67 mIU/mL (0-7.99); HBc Num1 0.28 S/CO (0.00-0.79); HBsAGNum1 0.26 S/CO (0.00-0.99); HIV AB/AG Nonreactive (Nonreactive); HIV Num 1 0.08 S/CO (0.00-0.99); Hepatitis B Core Antibody Nonreactive (Nonreactive); Hepatitis B Surface Antigen Negative (Negative); ~Hepatitis B Surface Antibody REACTIVE (Nonreactive); ~Hepatitis C Antibody Nonreactive (Nonreactive)
== END 2022-07-02 11:47 | disposition home or self-care (01) ==
LOC: HO.LAB 11:46
PROVIDERS: PCP Physician Assistant; Visit Provider Nurse Practitioner Family
DX: Z13.29 Encounter for screening for other suspected endocrine disorder (principal); Z11.3 Encounter for screening for infections with a predominantly sexual mode of transmission; Z11.4 Encounter for screening for human immunodeficiency virus [HIV]
CPT/HCPCS: 0353U; 36415; 80053; 84443; 85027; 86704; 86706; 86780; 86803; 87340; 87389

== ENCOUNTER → 2022-07-20 15:08 | Outpatient (BNVA) | payer OTHER, SELFPAY | PROVIDERS: PCP Physician Assistant; Referring Provider Nurse Practitioner Family; Visit Provider Surgery | DX: A63.0 Anogenital (venereal) warts (principal); F31.9 Bipolar disorder, unspecified | CPT/HCPCS: 99202 ==

== ENCOUNTER 2022-09-10 13:35 | Outpatient (REF) | payer OTHER, SELFPAY | END 2022-09-10 13:36 | disposition home or self-care (01) | LOC: HO.LNP 13:35 | PROVIDERS: PCP Physician Assistant; Visit Provider Surgery | DX: A63.0 Anogenital (venereal) warts (principal) | CPT/HCPCS: 11400; 17250; 54065; 88305 ==

== ENCOUNTER → 2022-09-24 13:54 | Outpatient (BNVA) | payer OTHER, SELFPAY | PROVIDERS: PCP Physician Assistant; Visit Provider Surgery ==

== ENCOUNTER 2022-10-06 13:06 | Outpatient (REF) | payer OTHER, SELFPAY ==
--- NOTE | ~2022-10-06 | XR_ITS ---
EXAMINATION: XR FOOT, RIGHT CLINICAL INFORMATION: Pain COMPARISON: None available. TECHNIQUE: AP, lateral, and oblique views of the right foot. FINDINGS: The bones and soft tissues are normal. No fracture. Alignment is anatomic. Joint spaces are maintained. XR/XR foot RT min 3V IMPRESSION: Normal right foot.
== END 2022-10-06 13:07 | disposition home or self-care (01) ==
LOC: HO.HMGCX 13:06
PROVIDERS: PCP Physician Assistant; Visit Provider Nurse Practitioner Family
DX: M79.671 Pain in right foot (principal)
CPT/HCPCS: 73630

== ENCOUNTER 2023-01-12 08:43 | Outpatient (AMB) | payer OTHER, SELFPAY ==
[2023-01-12 08:52] VITALS: BP 128/78; PULSE 76; O2SAT 99; BMI 32.7
--- NOTE | 2023-01-12 08:52 | A.OFFPC_ITS ---
Vital Signs 01/12/23 08:52 Height 6 ft Weight 241 lb 8 oz BMI 32.7 BP 128/78 Blood Pressure Location Lt brachial Position Sitting Pulse 76 Pulse Source Pulse Oximeter Pulse Oximetry (%) 99 Oxygen Delivery Method Room Air Intake Visit Reasons: PE Intake Note: Patient is here today for a physical. Monogram Maker Required: No Accompanied by: Self / Same As Patient Allergies fluoxetine Adverse Reaction (Severe, Verified 01/12/23 09:14) giuliana chlorpromazine [From Thorazine] Adverse Reaction (Intermediate, Verified 01/12/23 09:14) sleep walking Medication List - Last Reconciled 01/12/23 by PRANAV Delong-Destiny ascorbic acid (vitamin C) 1,000 mg PO BID cholecalciferol (vitamin D3) 50 mcg PO DAILY cyanocobalamin (vitamin B-12) (Vitamin B-12) 1,000 mcg PO DAILY lamotrigine 200 mg PO BEDTIME lithium carbonate 600 mg (2 x 300 mg) PO DAILY lithium carbonate 900 mg (3 x 300 mg) PO BEDTIME omega-3 fatty acids-fish oil 360-1,200 mg (Fish Oil) 2 caps PO DAILY oxcarbazepine 300 mg PO BID Tobacco use date assessed: 11/11/22 Dental Screening Dental Screen Date: 01/12/23 Did you have a dental visit in the last 12 months?: Yes Did you have a dental problem in the last 6 months where you did not have access to dental care?: No Was dental information given to patient?: Patient has dentist HPI PE HPI Details Patient is a 22 year-old male here today for annual physical.? Patient's past medical history significant moderate to severe bipolar disorder, depression, obesity. Concerns--> reports he has noted a skin lesion over his right arm that has become raised and has started to scab. He has a family history melanoma is concerned about skin cancer and would like to see a english and reading instructor for biopsy. He has also been dealing with a several month history of plantar fasciitis. Has seen a maintenance machine repairer whom recommends new shoe inserts and foot stretches. He reports his foot pain and has gradually been getting better. .. Bipolar disorder:? Is followed by a psychiatrist and continues on mental health medications to stabilize his mood.? He feels he has been much more stable since med adjustments done by his psychiatrist.? 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 .. Obesity:? He does understand his BMI is over 30, has been trying to be more physically active to reduce weight. . VAccine:? Up-to-date with tetanus vaccine, Declines COVID vac? Laboratory Tests 07/02/22 07/02/22 12:14 12:14 RBC 5.12 Creatinine 0.92 TSH 1.04 PFSH Medical History (Updated 01/12/23 @ 09:28 by Brian Collins PA-C) Anxiety Bipolar 1 disorder with moderate giuliana Depression No known health problems Surgical History H/O endoscopy S/P colonoscopy Family History Mother Alcohol abuse Mental problem Father Alcohol abuse Mental problem Melanoma Social History (Updated 01/12/23 @ 09:19 by Brian Collins PA-C) Household Members: Family Household Members Other:: mom and brother Housing: House Do you presently have visiting nurse or other home services: No Alcohol intake: current Alcohol intake frequency: holidays/special occasions only Patient Tobacco Use Status: Never used Tobacco e-Cigarette/Vaping Use: Never Used Second Hand Smoke Exposure: Yes ( sometimes but not too often ) service: No Current occupational status: disabled Current occupation: Student - Online Sexual orientation: Did not discuss Cognitive needs: No Hearing needs: No Vision needs: No Questionnaire Thrive Questionnaire Date Thrive assessed: 05/27/22 OVIDIO-7 AMB Questionnaire OVIDIO-7 Date OVIDIO - 7 assessed: 05/27/22 Source: Developed by Drs. Gino Shelton, Shari Duong, Héctor Alves and colleagues, with an educational allison from [employer]. Review of Systems Const Denies body aches, Denies chills, Denies excessive sweating, Denies fatigue, Denies fever(s) and Denies headache(s) Eyes Denies blurry vision ENT Denies dysphagia, Denies vertigo, Denies dizziness, Denies headache(s), Denies hearing loss and Denies tinnitus Card Denies chest pain, Denies chest pain with activity, Denies syncope, Denies irregular heart rhythm and Denies dyspnea Resp Denies chest congestion, Denies cough, Denies hemoptysis, Denies dyspnea and Denies wheezing GI Denies abdominal pain, Denies melena, Denies hematochezia, Denies coffee ground emesis, Denies dysphagia, Denies diarrhea, Denies nausea and Denies vomiting Denies difficulty urinating, Denies dysuria, Denies urinary frequency, Denies ur inary hesitancy and Denies urinary urgency Musc Denies arthralgias, Denies limited range of motion, Denies muscle cramps and Denies muscle weakness Skin/Breast Denies rash and Denies skin ulcer Neuro Denies Abnormal speech present, Denies confusion, Denies vertigo, Denies dizziness, Denies syncope, Denies headache(s), Denies memory loss and Denies seizure-like activity Psych Denies anxiety, Denies confusion, Denies depression, Denies memory loss, Denies panic attacks and Denies paranoia Endo Denies excessive sweating, Denies fatigue, Denies flushing, Denies polydipsia and Denies polyuria Aller/Immun Denies wheezing Physical exam (Primary Care) Vital Signs: Last Vital Signs Pulse 76 01/12/23 08:52 BP 128/78 01/12/23 08:52 Pulse Ox 99 01/12/23 08:52 Oxygen Delivery Method Room Air 01/12/23 08:52 BMI result Body Mass Index 32.7 BMI Assessment/Plan discussion: High Tobacco/Smoking Status: Tobacco use Status Tobacco use date assessed 11/11/22 01/12/23 08:52 Patient Tobacco Use Status Never used Tobacco 01/12/23 08:52 e-Cigarette/Vaping Use Never Used 01/12/23 08:52 Thrive Assessment: Date of Thrive Assessment Date Thrive assessed 05/27/22 01/12/23 08:52 Const Other: Obese General: cooperative, comfortable, no acute distress, alert and awake; No confusion Orientation/consciousness: oriented to person, oriented to place, patient oriented x3 and No confusion HENMT Head: Yes normocephalic Ears: external ears normal and TM's normal bilaterally Face and sinus: No sinus tenderness Mouth: Normal oral and palatal mucosa present and tongue normal Teeth and gingiva: dentition normal and gingiva normal Throat: Yes posterior oropharynx normal, Yes tonsils normal and Yes uvula midline Eyes Conjunctivae: conjunctivae normal Sclerae: sclerae normal Pupils: Equal, round and reactive pupils present EOM: EOMs intact bilaterally Direct Ophthalmoscopy: No no photophobia Neck Neck: Yes no lymphadenopathy, No tender and Yes no JVD Thyroid: Thyroid normal Carotids: no bruits Chest Chest palpation & inspection: no tenderness Resp Effort & Inspection: normal respiratory effort, no audible wheezes, not labored and no stridor Auscultation: no crackles, no rales, no rhonchi and no wheezes Cardio Jugular venous distension: no JVD Rate: regular rate, not bradycardic and not tachycardic Rhythm: regular rhythm Bruits: no carotid bruits Peripheral pulses: Peripheral pulses 2+ throughout GI Inspection: Yes normal to inspection, No abdominal wall ecchymosis and No visible herniation Palpation (GI): Soft to palpation, nontender, no guarding, not rigid and No hepatosplenomegaly present Auscultation: normoactive bowel sounds General: Yes no CVA tenderness Back/Spine/Pelvis Back: no CVA tenderness and No back tenderness Cervical Spine: cervical ROM normal Thoracic/Lumbar Spine: thoracic and lumbar spine normal to inspection, straight leg raise negative bilaterally, No thoraco-lumbar ROM limited and No lumbar spinal tenderness Skin Lesions: no lesions Rashes: no rashes Wounds: no wounds Full body images: 1. SMALL RAISED PAPULE LIKE SKIN LESION OVER RIGHT FOREARM. Neuro General: oriented to person, oriented to place, patient oriented x3, CN's II-XI intact bilaterally and No confusion Cranial nerves: Yes Equal, round and reactive pupils present and Yes Normal accommodation reflex present Cognition (Neuro): normal cognition Speech: No Abnormal speech present Gait exam (Neuro): Normal gait present Motor exam (neuro): 5/5 motor strength present throughout Extrem Right upper extremity: full ROM; no cyanosis Left upper extremity: full ROM; no cyanosis Right lower extremity: no edema Left lower extremity: no edema Psych Appearance: grossly normal Mental Status: mental status grossly normal Affect: normal affect Attitude: cooperative Thought process: Normal thought process present Assessment and Plan Assessment & Plan (1) Annual physical exam: Code(s): Z00.00 - Encounter for general adult medical examination without abnormal findings (2) Plantar fasciitis, bilateral: Code(s): M72.2 - Plantar fascial fibromatosis Plan: Reports his bilateral feet pain has been getting better. Has seen a maintenance machine repairer whom recommends new shoe inserts and stretches. (3) Obese: Code(s): E66.9 - Obesity, unspecified Qualifiers: Obesity type: due to excess calories Obesity classification: adult class 1 (BMI 30 - 34.9) Serious obesity comorbidity presence: without serious comorbidity Body mass index: BMI 32.0-32.9 Qualified Code(s): E66.09 - Other obesity due to excess calories; Z68.32 - Body mass index [BMI] 32.0-32.9, adult Plan: Patient does understand his BMI is over 30 will continue working on being more physically active and adapting to better eating habits to reduce his weight (4) Bipolar 1 disorder with moderate giuliana: Code(s): F31.12 - Bipolar disorder, current episode manic without psychotic features, moderate Plan: Continues to follow psychiatry who manages his mental health medication. On several different mood stabilization medication. He feels stable from a mental health point of view and does get his lithium levels checked on a regular basis. (5) Skin lesion of right arm: Code(s): L98.9 - Disorder of the skin and subcutaneous tissue, unspecified Plan: Has noted a right arm skin lesion over the last several years. He reports skin lesion has now become raised and often the scab. Does have family history of melanoma would like to see a english and reading instructor for evaluation of possible biopsy Orders: Orders Comprehensive [place]. Panel Fast Today Z13.1 - Encounter for screening for diabetes mellitus CT NG by PCR Today Z11.3 - Encounter for screening for infections with a predominantly sexual mode of transmission, Z20.2 - Contact with and (suspected) exposure to infections with a predominantly sexual mode of transmission Syphilis Screen Today Z11.3 - Encounter for screening for infections with a predominantly sexual mode of transmission Referrals Dermatology Referral L98.9 - Disorder of the skin and subcutaneous tissue, unspecified, Z80.8 - Family history of malignant neoplasm of other organs or systems Coding Level of Care Code Est Pt Prev Care 18-39y(02025) Diagnoses Annual physical exam Z00.00 Plantar fasciitis, bilateral M72.2 Obese E66.09; Z68.32 Obesity type: due to excess calories Obesity classification: adult class 1 (BMI 30 - 34.9) Serious obesity comorbidity presence: without serious comorbidity Body mass index: BMI 32.0-32.9 Bipolar 1 disorder with moderate giuliana F31.12 Skin lesion of right arm L98.9
== END 2023-01-12 09:43 | disposition home or self-care (01) ==
PROVIDERS: Visit Provider Physician Assistant
DX: Z00.00 Encounter for general adult medical examination without abnormal findings (principal); F31.12 Bipolar disorder, current episode manic without psychotic features, moderate; E66.09 Other obesity due to excess calories; Z68.32 Body mass index [BMI] 32.0-32.9, adult; M72.2 Plantar fascial fibromatosis; L98.9 Disorder of the skin and subcutaneous tissue, unspecified
CPT/HCPCS: 99395

== ENCOUNTER 2023-01-21 14:55 | Outpatient (AMB) | payer OTHER, SELFPAY ==
[2023-01-21 15:20] VITALS: BP 144/70; PULSE 56; BMI 32.8
--- NOTE | 2023-01-21 15:20 | MHC.OFFVIS ---
Intake Vital Signs 01/21/23 15:20 Height 6 ft Weight 242 lb BMI 32.8 BP 144/70 H Blood Pressure Location Rt brachial Position Sitting Pulse 56 Intake Visit Reasons: Exc genital warts Intake Note: Patient here for exc of penile warts. Ticket Counter Required: No Accompanied by: Self / Same As Patient Allergies fluoxetine Adverse Reaction (Severe, Verified 01/21/23 15:21) giuliana chlorpromazine [From Thorazine] Adverse Reaction (Intermediate, Verified 01/21/23 15:21) sleep walking Medication List - Last Reconciled 01/21/23 by Daniel Ma MD ascorbic acid (vitamin C) 1,000 mg PO BID cholecalciferol (vitamin D3) 50 mcg PO DAILY cyanocobalamin (vitamin B-12) (Vitamin B-12) 1,000 mcg PO DAILY lamotrigine 200 mg PO BEDTIME lithium carbonate 600 mg (2 x 300 mg) PO DAILY lithium carbonate 900 mg (3 x 300 mg) PO BEDTIME omega-3 fatty acids-fish oil 360-1,200 mg (Fish Oil) 2 caps PO DAILY oxcarbazepine 300 mg PO BID HPI Exc genital warts HPI Details He is here for follow-up for penile lesions. I had removed penile lesions last August,. The path report shows a fibroepithelial polyp He points to smaller lesions that are flat on the shaft of the penis and closer to the glans. He says that these do not bother him but he wanted this checked. [facility] Medical History (Updated 01/21/23 @ 15:37 by Daniel Ma MD) Anxiety Bipolar 1 disorder with moderate giuliana Depression Fibroepithelial polyp No known health problems Surgical History H/O endoscopy S/P colonoscopy Family History Mother Alcohol abuse Mental problem Father Alcohol abuse Mental problem Melanoma Social History Household Members: Family Household Members Other:: mom and brother Housing: House Do you presently have visiting nurse or other home services: No Alcohol intake: current Alcohol intake frequency: holidays/special occasions only Patient Tobacco Use Status: Never used Tobacco e-Cigarette/Vaping Use: Never Used Second Hand Smoke Exposure: Yes ( sometimes but not too often ) service: No Current occupational status: disabled Current occupation: Student - Online Sexual orientation: Did not discuss Cognitive needs: No Hearing needs: No Vision needs: No Review of Systems Const Denies chills and Denies fever(s) Card Denies chest pain, Denies dyspnea and Denies dyspnea on exertion Resp Denies cough, Denies dyspnea and Denies dyspnea on exertion GI Denies hematochezia and Denies change in bowel habits Denies hematuria and Denies difficulty urinating Musc Denies back pain and Denies limited range of motion Neuro Denies focal weakness and Denies convulsions Psych Denies depression and Denies mood swings Physical Exam Vital Signs: Last Vital Signs Pulse 56 01/21/23 15:20 BP 144/70 H 01/21/23 15:20 BMI result Body Mass Index 32.8 Const General: comfortable and no acute distress Resp Effort & Inspection: normal respiratory effort Other: Small 2 to 3 mm mildly elevated skin lesions on the shaft of the penis and close to the glans, Assessment & Plan Assessment & Plan (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 His previous path report had shown a fibroepithelial polyp I told him that these appear to be benign lesions color to the once that had been removed. He says that these do not bother him at this time and he says he would like to hold off on procedure. 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
== END 2023-01-21 15:50 | disposition home or self-care (01) ==
PROVIDERS: PCP Physician Assistant; Visit Provider Surgery
DX: L91.8 Other hypertrophic disorders of the skin (principal)
CPT/HCPCS: 99212

== ENCOUNTER → 2023-01-21 14:55 | Outpatient (BNVA) | payer OTHER, SELFPAY | PROVIDERS: PCP Physician Assistant; Visit Provider Surgery | DX: L91.8 Other hypertrophic disorders of the skin (principal) | CPT/HCPCS: 99212 ==

== ENCOUNTER 2023-03-09 12:46 | Outpatient (REF) | payer OTHER, SELFPAY ==
[2023-03-09 14:38] LABS: Lithium 0.53 mmol/L (0.60-1.20)
[2023-03-09 14:40] LABS: Vitamin D 25-OH Total 72.6 ng/mL (>30)
[2023-03-09 14:58] LABS: Folate 13.5 ng/mL (> or = 4.0); Vitamin B12 1163 pg/mL (200-900)
== END 2023-03-09 12:47 | disposition home or self-care (01) ==
LOC: HO.LAB 12:46
PROVIDERS: PCP Physician Assistant; Visit Provider Psychiatry & Neurology Psychiatry
DX: R53.82 Chronic fatigue, unspecified (principal); E03.9 Hypothyroidism, unspecified; E07.81 Sick-euthyroid syndrome; Z79.899 Other long term (current) drug therapy
CPT/HCPCS: 36415; 80178; 82306; 82607; 82746

== ENCOUNTER 2023-05-11 09:22 | Outpatient (AMB) | payer OTHER, SELFPAY ==
--- NOTE | 2023-05-11 11:06 | MHC.OFFWIV ---
Intake Vital Signs 05/11/23 11:09 Height 6 ft Weight 241 lb BMI 32.7 BP 130/76 Blood Pressure Location Lt brachial Position Sitting Pulse 66 Pulse Source Pulse Oximeter Temp 97.4 F Temp Source Temporal Artery Scan Pulse Oximetry (%) 98 Oxygen Delivery Method Room Air Intake Visit Reasons: EP, left side of abdomen pain Intake Note: pt is here for lft side of abdomen pain started 05/05 Patient Tobacco Use Status: Never used Tobacco Allergies fluoxetine Adverse Reaction (Severe, Verified 05/11/23 11:07) giuliana chlorpromazine [From Thorazine] Adverse Reaction (Intermediate, Verified 05/11/23 11:07) sleep walking Do you need a note to return to daycare/school/sports/work: Yes HPI HPI Comments History of Present Illness Details This is a 23-year-old male with past medical history of bipolar disorder and schizoaffective disorder presenting for evaluation of left-sided flank and upper abdominal pain that he is due for the past 5 days. Patient reports the pain is a pressure-like sensation which is worse when he is sitting. Patient denies having any previous abdominal surgeries, fevers, chills, nausea, vomiting, urinary frequency, dysuria, hematuria or constipation. Patient does report starting an intermittent fasting diet which he wonders if is related. Patient's last bowel movement he has not had any change in his routine bowel movements. Patient does lift weights and goes the the gym but denies any injury or trauma preceeding the onset of his symptoms. Patient has not taken any medication for treatment of his discomfort. [facility] Medical History Fibroepithelial polyp No known health problems Bipolar 1 disorder with moderate giuliana Depression Anxiety Surgical History S/P colonoscopy H/O endoscopy Family History Mother Alcohol abuse Mental problem Father Alcohol abuse Mental problem Melanoma Social History Household Members: Family Household Members Other:: mom and brother Housing: House Do you presently have visiting nurse or other home services: No Alcohol intake: current Alcohol intake frequency: holidays/special occasions only Comment: none Patient Tobacco Use Status: Never used Tobacco e-Cigarette/Vaping Use: Never Used Second Hand Smoke Exposure: Yes ( sometimes but not too often ) service: No Current occupational status: disabled Current occupation: Student - Online Sexual orientation: Did not discuss Cognitive needs: No Hearing needs: No Vision needs: No Review of Systems Const All systems reviewed & are unremarkable except as noted in HPI and below Denies chills, Denies fatigue, Denies fever(s) and Denies malaise GI Reports no additional complaints, Reports abdominal pain (LUQ) and Denies change in bowel habits Reports no additional complaints, Denies hematuria, Denies dysuria, Denies urinary frequency, Denies urinary urgency and Reports other (left flank pain) Psych Reports no additional complaints Endo Denies fatigue Physical Exam Vital Signs: Last Vital Signs Temp 97.4 F 05/11/23 11:09 Pulse 66 05/11/23 11:09 BP 130/76 05/11/23 11:09 Pulse Ox 98 05/11/23 11:09 Oxygen Delivery Method Room Air 05/11/23 11:09 BMI result Body Mass Index 32.7 Const General: cooperative, healthy appearing, comfortable and no acute distress Nutritional Appearance: well nourished Orientation/consciousness: patient oriented x3 Limitations: no limitations Resp Effort & Inspection: normal respiratory effort Auscultation: clear to auscultation bilaterally Cardio Rate: regular rate Rhythm: regular rhythm GI Palpation (GI): Tenderness to palpation present (GI) in the LUQ and other (left flank), no guarding, No Rebound tenderness present and No Bladder palpation abnormal Auscultation: normal bowel sounds General: No Bladder palpation abnormal and Yes no CVA tenderness Back/Spine/Pelvis Back: no CVA tenderness Skin General skin exam: no rashes or lesions noted Neuro General: patient oriented x3 Psych Appearance: grossly normal Mental Status: mental status grossly normal Insight: Good insight present (Psych) Judgement: Good judgement present (Psych) Results AMB Urinalysis, Automated UA Leukoctes 0 [place]/uL Last Edit by Mary Monreal CMA on 05/11/23 11:44 UA Nitrite Negative Last Edit by Mary Monreal CMA on 05/11/23 11:44 UA Urobilinogen 0.2 mg/dL Last Edit by Mary Monreal CMA on 05/11/23 11:44 UA Protein 0 mg/dL Last Edit by Mary Monreal CMA on 05/11/23 11:44 UA pH 6.0 Last Edit by Mary Monreal, REINA on 05/11/23 11:44 UA Blood 0 Abdulkadir/uL Last Edit by Mary Monreal, REINA on 05/11/23 11:44 UA Specific [place] 1.010 Last Edit by Mary Monreal, REINA on 05/11/23 11:44 UA Ketone Negative Last Edit by Mary Monreal, REINA on 05/11/23 11:44 UA Bilirubin 0 mg/dL Last Edit by Mary Monreal, REINA on 05/11/23 11:44 UA Glucose 0 mg/dL Last Edit by Mary Monreal, REINA on 05/11/23 11:44 Results Reviewed Results Reviewed: Urinalysis reviewed with patient. Assessment & Plan Assessment & Plan (1) Left upper quadrant abdominal pain: Code(s): R10.12 - Left upper quadrant pain Plan: Ibuprofen 400mg q6 hours prn; patient to follow-up with his PCP within 7-10 days and will go to the ED if pain worsens. (2) Left flank pain: Code(s): R10.9 - Unspecified abdominal pain Plan Follow-up with PCP within 7-10 days; sooner if pain worsens. Orders: Orders AMB Urinalysis Automated Today Z13.9 - Encounter for screening, unspecified Coding Level of Care Code Est Pt Level 3 (10219) Diagnoses Left upper quadrant abdominal pain R10.12 Left flank pain R10.9 Time Spent (min) 25
[2023-05-11 11:09] VITALS: BP 130/76; PULSE 66; TEMP 36.3; O2SAT 98; BMI 32.7
== END 2023-05-11 12:09 | disposition home or self-care (01) ==
PROVIDERS: PCP Physician Assistant; Visit Provider Physician Assistant
DX: R10.12 Left upper quadrant pain (principal)
CPT/HCPCS: 81003; 99213

== ENCOUNTER 2023-05-12 14:18 | Outpatient (AMB) | payer OTHER, SELFPAY ==
[2023-05-12 14:23] VITALS: BP 158/90; PULSE 64; O2SAT 99; BMI 32.2
--- NOTE | 2023-05-12 14:23 | A.OFFPC_ITS ---
Vital Signs 05/12/23 14:23 Height 6 ft Weight 237 lb 4 oz BMI 32.2 BP 158/90 H Blood Pressure Location Lt brachial Position Sitting Pulse 64 Pulse Source Pulse Oximeter Pulse Oximetry (%) 99 Oxygen Delivery Method Room Air Intake Visit Reasons: Follow up from walk in visit Intake Note: Pt is here for left-sided flank and upper abdominal pain that he is due for the past 7 days and is not taking any pain medication. Financial Planning Adviser Required: No Accompanied by: Self / Same As Patient Allergies fluoxetine Adverse Reaction (Severe, Verified 05/12/23 14:34) giuliana chlorpromazine [From Thorazine] Adverse Reaction (Intermediate, Verified 05/12/23 14:34) sleep walking Medication List - Last Reconciled 05/12/23 by Brian Collins PA-C ascorbic acid (vitamin C) 1,000 mg PO BID cholecalciferol (vitamin D3) 50 mcg PO DAILY cyanocobalamin (vitamin B-12) (Vitamin B-12) 1,000 mcg PO DAILY lamotrigine 200 mg PO BEDTIME lithium carbonate 600 mg (2 x 300 mg) PO DAILY lithium carbonate 900 mg (3 x 300 mg) PO BEDTIME omega-3 fatty acids-fish oil 360-1,200 mg (Fish Oil) 2 caps PO DAILY oxcarbazepine 300 mg PO BID Tobacco use date assessed: 11/11/22 HPI Follow up from walk in visit HPI Details Patient is a 23-year-old male here today for a follow-up visit. Recently seen at the walk-in clinic for left flank pain for 5 day onset. He did undergo urinalysis without any evidence of UTI. He denies any injuries to his left flank. He does go to a local gym several days a week. He otherwise denies any nausea vomiting, fever chills, diarrhea or urinary frequency. [facility] Medical History Fibroepithelial polyp No known health problems Bipolar 1 disorder with moderate giuliana Depression Anxiety Surgical History S/P colonoscopy H/O endoscopy Family History Mother Alcohol abuse Mental problem Father Alcohol abuse Mental problem Melanoma Social History Household Members: Family Household Members Other:: mom and brother Housing: House Do you presently have visiting nurse or other home services: No Alcohol intake: current Alcohol intake frequency: holidays/special occasions only Comment: none Patient Tobacco Use Status: Never used Tobacco e-Cigarette/Vaping Use: Never Used Second Hand Smoke Exposure: Yes ( sometimes but not too often ) service: No Current occupational status: disabled Current occupation: Student - Online Sexual orientation: Did not discuss Cognitive needs: No Hearing needs: No Vision needs: No Questionnaire Thrive Questionnaire Date Thrive assessed: 05/27/22 OVIDIO-7 AMB Questionnaire OVIDIO-7 Date OVIDIO - 7 assessed: 05/27/22 Source: Developed by Drs. Gino Shelton, Shari Duong, Héctor Alves and colleagues, with an educational allison from [employer]. Review of Systems Const Denies headache(s) Eyes Denies loss of vision ENT Denies vertigo, Denies dizziness, Denies headache(s) and Denies sore throat Card Denies chest pain, Denies leg edema and Denies lightheadedness Resp Denies cough, Denies hemoptysis and Denies wheezing GI Denies abdominal pain, Denies melena, Denies constipation, Denies diarrhea and Denies vomiting Denies dysuria, Denies urinary frequency and Denies urinary urgency Musc Denies arthralgias, Denies joint swelling, Denies numbness and Denies tingling Neuro Denies Abnormal speech present, Denies behavioral changes, Denies vertigo, Denies dizziness, Denies headache(s), Denies loss of vision, Denies memory loss, Denies numbness and Denies tingling Psych Denies anxiety, Denies behavioral changes, Denies depression, Denies memory loss and Denies panic attacks [place]/Lymph Denies easy bleeding and Denies easy bruising Aller/Immun Denies wheezing Physical exam (Primary Care) Vital Signs: Last Vital Signs Pulse 64 05/12/23 14:23 BP 158/90 H 05/12/23 14:23 Pulse Ox 99 05/12/23 14:23 Oxygen Delivery Method Room Air 05/12/23 14:23 BMI result Body Mass Index 32.2 Tobacco/Smoking Status: Tobacco use Status Tobacco use date assessed 11/11/22 05/12/23 14:26 Patient Tobacco Use Status Never used Tobacco 05/12/23 14:26 e-Cigarette/Vaping Use Never Used 05/12/23 14:26 Thrive Assessment: Date of Thrive Assessment Date Thrive assessed 05/27/22 05/12/23 14:26 Const General: healthy appearing, no acute distress, alert and awake Nutritional Appearance: well nourished Orientation/consciousness: oriented to person, oriented to place and oriented to time HENMT Ears: TM's normal bilaterally General nose exam: Normal nasal mucous membranes and turbinates present Eyes Conjunctivae: conjunctivae normal Sclerae: sclerae normal Pupils: Equal, round and reactive pupils present Neck Neck: Yes no lymphadenopathy and Yes no JVD Thyroid: Thyroid normal Carotids: no bruits Resp Effort & Inspection: normal respiratory effort and not tachypneic Auscultation: no crackles, no rales, no rhonchi and no wheezes Cardio Rate: regular rate Rhythm: regular rhythm Heart sounds: no murmurs and normal S1 and S2 GI Other: SOME TENDERNESS TO PALPATION OVER THE LEFT UPPER ABDOMINAL QUADRANT. Palpation (GI): Soft to palpation, Tenderness to palpation present (GI), no hepatomegaly and no splenomegaly Auscultation: normal bowel sounds Skin General skin exam: no rashes or lesions noted and dry skin Neuro General: oriented to person, oriented to place and oriented to time Cranial nerves: Yes Equal, round and reactive pupils present Speech: No Abnormal speech present Gait exam (Neuro): Normal gait present Motor exam (neuro): no tremor noted Extrem Right upper extremity: full ROM Left upper extremity: full ROM Right lower extremity: full ROM; no edema Left lower extremity: full ROM; no edema Psych Mental Status: mental status grossly normal Speech and movement: Normal speech and movement present Affect: normal affect Attitude: cooperative Thought process: Normal thought process present Assessment and Plan Assessment & Plan (1) Left flank pain: Code(s): R10.9 - Unspecified abdominal pain Plan: Unclear etiology to patient's left flank pain that has been evident over the last week. He denies any trauma. He denies any urinary frequency or diarrhea. Will send for nonfasting labs, x-ray of kidneys urinary bladder and left flank. Of note patient's blood pressure slightly elevated today likely due to being a bit anxious about his pain. Advised on treating conservatively with acetaminophen and topical analgesics Orders: Orders Basic Metabolic Panel Today R10.9 - Unspecified abdominal pain XR KUB Today R10.9 - Unspecified abdominal pain Liver Panel Today R10.9 - Unspecified abdominal pain XR ribs LT min 3V w CXR1V Today R10.9 - Unspecified abdominal pain Complete Blood Count no Diff Today R10.9 - Unspecified abdominal pain Coding Level of Care Code Est Pt Level 3 (55085) Diagnoses Left flank pain R10.9
== END 2023-05-12 14:58 | disposition home or self-care (01) ==
PROVIDERS: PCP Physician Assistant; Visit Provider Physician Assistant
DX: R10.9 Unspecified abdominal pain (principal)
CPT/HCPCS: 99213

== ENCOUNTER 2023-05-12 15:04 | Outpatient (REF) | payer OTHER, SELFPAY ==
--- NOTE | ~2023-05-12 | XR_ITS ---
EXAMINATION: XR ABDOMEN KUB CLINICAL INDICATION: Abdominal pain. COMPARISON: KUB 04/22/2011. TECHNIQUE: AP view of the abdomen. FINDINGS: The bowel gas pattern is normal with no evidence of ileus or obstruction. A large stool burden seen at the time of the 2010 study is no longer present. No unusual soft tissue calcifications are noted. The bones are unremarkable. XR/XR KUB IMPRESSION: Unremarkable examination.
--- NOTE | ~2023-05-12 | XR_ITS ---
EXAMINATION: XR RIBS, LEFT CLINICAL INFORMATION: Pain. COMPARISON: None available. TECHNIQUE: Single view chest and 5 additional views of the left ribs were obtained. FINDINGS: Lungs are clear. No consolidation, pneumothorax, or pleural effusion. The cardiomediastinal silhouette and pulmonary vasculature are normal. Osseous structures are unremarkable. Ribs are intact. No fractures are identified. XR/XR ribs LT min 3V w CXR1V IMPRESSION: Unremarkable examination.
[2023-05-12 15:54] LABS: Hematocrit 45.5 % (42.0-52.0); Hemoglobin 14.9 g/dl (14.0-18.0); Mean Corpuscular HGB Conc 32.7 g/dl (31.0-36.0); Mean Corpuscular Volume 85.5 fL (80.0-98.0); Mean Platelet Volume 12.1 fL (9.4-12.4); Platelet Count 238 X10*3/uL (160-400); Red Blood Count 5.32 X10*6/uL (4.60-5.80); Red Cell Distribution Width 13.4 % (11.0-16.0); White Blood Count 6.8 X10*3/uL (4.8-10.8)
[2023-05-12 16:15] LABS: Alanine Aminotransferase 20 U/L (0-40); Alkaline Phosphatase 49 U/L (39-117); Anion Gap 12 (12-20); Aspartate Amino Transferase 19 U/L (5-37); Bilirubin Direct 0.2 mg/dL (0.0-0.5); Bilirubin Total 0.5 mg/dL (0.0-1.0); Blood Urea Nitrogen 9 mg/dL (9-16); Calcium 9.9 mg/dL (8.4-10.2); Carbon Dioxide 25 mmol/L (22-29); Chloride 108 mmol/L (96-108); Estimated Glomerular Filt Rate > 60; Glucose Random 88 mg/dL (60-115); Potassium 4.1 mmol/L (3.3-5.1); Sodium 141 mmol/L (135-145); Total Protein 7.6 g/dL (6.5-8.0)
== END 2023-05-12 15:05 | disposition home or self-care (01) ==
LOC: HO.LAB 15:04
PROVIDERS: PCP Physician Assistant; Visit Provider Physician Assistant
DX: R10.9 Unspecified abdominal pain (principal); R07.81 Pleurodynia
CPT/HCPCS: 36415; 71101; 74018; 80048; 80076; 85027

== ENCOUNTER 2023-05-30 19:50 | Inpatient (IN) | payer OTHER, SELFPAY ==
[2023-05-30 19:53] VITALS: BP 138/79; PULSE 88; RESP 18; TEMP 37.2; O2SAT 97; BMI 32.9
[2023-05-30 20:00] VITALS: BP 146/90; PULSE 100; RESP 18; TEMP 37.7; O2SAT 98
[2023-05-30 20:45] LABS: Basophils Absolute Auto 0.1 X10*3/uL (0.0-0.2); Basophils Percent Auto 0.5 % (0-2); Eosinophils Absolute Auto 0.1 X10*3/uL (0.0-0.4); Eosinophils Percent Auto 0.3 % (0-4); Hematocrit 41.6 % (42.0-52.0); Hemoglobin 13.9 g/dl (14.0-18.0); Imm Gran Abs Auto 0.06 X10*3/uL (0.00-0.03); Imm Gran Pct Auto 0.4 % (0.0-0.4); Lymphocytes Absolute Auto 2.3 X10*3/uL (1.2-4.9); Lymphocytes Percent Auto 14.4 % (20-40); MANUAL DIFF FLAG SCAN; Mean Corpuscular HGB Conc 33.4 g/dl (31.0-36.0); Mean Corpuscular Hemoglobin 28.7 pg (27.0-33.0); Mean Platelet Volume 12.1 fL (9.4-12.4); Monocytes Absolute Auto 1.5 X10*3/uL (0.1-1.2); Monocytes Percent Auto 9.8 % (2-11); Neutrophils Absolute Auto 11.7 x10*3/uL (2.0-8.3); Neutrophils Percent Auto 74.6 % (45-73); Platelet Count 228 X10*3/uL (160-400); Red Blood Count 4.84 X10*6/uL (4.60-5.80); Red Cell Distribution Width 13.3 % (11.0-16.0); SCAN SMEAR FLAG 1; White Blood Count 15.7 X10*3/uL (4.8-10.8)
[2023-05-30 20:47] LABS: Appearance Urine Clear; Color Urine Yellow; Glucose Urine UA Negative (Negative); Leukocyte Esterase Urine Negative (Negative); Nitrite Urine Negative (Negative); Urine Blood Negative (Negative); Urine Ketones >=160 mg/dL (Negative); Urine Protein Trace mg/dL (Neg-Trace)
[2023-05-30 20:54] LABS: Amphetamine Screen Urine Not Detected (Not Detect); Barbiturates, Urine Not Detected (Not Detect); Benzodiazepines Screen Urine Not Detected (Not Detect); Cannabinoid Screen Urine Not Detected (Not Detect); Cocaine Screen Urine Not Detected (Not Detect); Fentanyl, urine Not Detected (Not Detect); Lithium 0.44 mmol/L (0.60-1.20); Opiate Screen Urine Not Detected (Not Detect); Phencyclidine Screen Urine Not Detected (Not Detect)
[2023-05-30 20:59] LABS: Alanine Aminotransferase 41 U/L (0-40); Albumin Level 4.6 g/dL (3.5-5.0); Alkaline Phosphatase 53 U/L (39-117); Anion Gap 17 (12-20); Aspartate Amino Transferase 78 U/L (5-37); Bilirubin Total 0.6 mg/dL (0.0-1.0); Blood Urea Nitrogen 11 mg/dL (9-16); Calcium 9.6 mg/dL (8.4-10.2); Carbon Dioxide 19 mmol/L (22-29); Chloride 106 mmol/L (96-108); Creatinine Clr Calc Pharmacy 155.6; Estimated Glomerular Filt Rate > 60; Ethanol < 10 mg/dL; Glucose Random 101 mg/dL (60-115); Potassium 3.8 mmol/L (3.3-5.1); Sodium 138 mmol/L (135-145); Total Protein 7.2 g/dL (6.5-8.0)
[2023-05-30 21:06] LABS: SLIDE REVIEW VERIFIED
--- NOTE | 2023-05-30 22:02 | ED_ITS ---
HPI - Psych General Chief Complaint: Psychiatric Symptoms Stated Complaint: crisis eval Time Seen by Provider: 05/30/23 20:21 Source: other Mode of arrival: ambulatory History of Present Illness HPI Narrative: 23-year-old male who presents without SI/HI, reports he can not sleep and would like to speak to care team and states he has been taking all of his medications. This information was obtained by the nursing triage note, patient was unwilling to speak to me. Related Data Home Medications Medication Instructions Recorded Confirmed oxcarbazepine 300 mg tablet 300 mg PO BID 12/31/21 05/30/23 lamotrigine 200 mg tablet 200 mg PO BEDTIME 06/20/22 05/30/23 ascorbic acid (vitamin C) 1,000 mg 1,000 mg PO BID 07/20/22 05/30/23 tablet cholecalciferol (vitamin D3) 50 50 mcg PO DAILY 07/20/22 05/30/23 mcg (2,000 unit) tablet cyanocobalamin (vitamin B-12) 1,000 mcg PO DAILY 07/20/22 05/30/23 1,000 mcg tablet (Vitamin B-12) omega-3 fatty acids-fish oil 360 2 cap PO DAILY 07/20/22 05/30/23 mg-1,200 mg capsule (Fish Oil) Previous Rx's Medication Instructions Recorded lithium carbonate 300 mg capsule 600 mg (2 x 300 mg) PO DAILY #60 03/11/21 caps lithium carbonate 300 mg capsule 900 mg (3 x 300 mg) PO BEDTIME #90 03/11/21 caps Allergies Allergy/AdvReac Type Severity Reaction Status Date / Time fluoxetine AdvReac Severe sandy Verified 05/12/23 14:34 chlorpromazine AdvReac Intermediate sleep Verified 05/12/23 14:34 [From Thorazine] walking Review of Systems 2 Review of Systems: Yes Unobtainable due to mental condition PMFSH Past Medical History Source: nursing notes reviewed Onset Date is defined in the Problem List Problems that require an onset date and time if occurred within 24 hrs of arrival to the ED Aortic Dissection and Rupture; Neurologic impairment; Cardiopulmonary Arrest; Endotracheal Intubation; Insertion or Replacement of Mechanical Circulatory Assist Device Medical History Fibroepithelial polyp No known health problems Bipolar 1 disorder with moderate sandy Depression Anxiety Surgical History S/P colonoscopy H/O endoscopy Family History Family History Mother Alcohol abuse Mental problem Father Alcohol abuse Mental problem Melanoma Social History Social History Household Members: Family Household Members Other:: mom and brother Housing: House Do you presently have visiting nurse or other home services: No Alcohol intake: current Alcohol intake frequency: holidays/special occasions only Comment: none Patient Tobacco Use Status: Never used Tobacco e-Cigarette/Vaping Use: Never Used Second Hand Smoke Exposure: Yes ( sometimes but not too often ) Advance Directives: No Advance Directives Information Provided: No service: No Current occupational status: disabled Current occupation: Student - Online Sexual orientation: Did not discuss Cognitive needs: No Hearing needs: No Vision needs: No Physical Exam 2 Vital Signs: Vital Signs: Last Vital Signs Temp 100 F 05/30/23 20:00 Pulse 100 05/30/23 20:00 Resp 18 05/30/23 22:36 BP 146/90 H 05/30/23 20:00 Pulse Ox 98 05/30/23 20:00 O2 Del Method Room Air 05/30/23 20:00 BMI result Body Mass Index 32.9 VITAL SIGNS: Reviewed. GENERAL: Well developed, well nourished, in no acute distress. HEAD: Normocephalic/atraumatic EYES: PERRLA, EOMI EARS: Ext canals without abnormality NOSE: Nares patent bilateral OROPHARYNX: no oral lesions noted, posterior pharynx clear NECK: Supple, no adenopathy LUNGS: Normal breath sounds. No adventitious sounds or accessory muscle use. SpO2<98> CARDIOVASCULAR: Regular rate and rhythm without noted murmurs ABDOMEN: Soft, non-tender, non-distended with bowel sounds. MUSCULOSKELETAL: No tenderness, deformities, or effusions noted on gross inspection. EXTREMITIES: No cyanosis, clubbing or edema. SKIN: Inspection of the skin reveals no rashes NEUROLOGIC: Alert and oriented x 4. Strength and sensation to light touch were grossly intact x 4, cranial nerves 2 through 12 are grossly intact PSYCH: Manic Medications Administered Discontinued Medications Generic Name Dose Route Start Last Admin Trade Name Freq PRN Reason Stop Dose Admin Diphenhydramine HCl 50 mg 05/30/23 21:56 05/30/23 22:09 Diphenhydramine Hcl 50 Mg/Ml Vial IM 05/30/23 21:57 50 mg ONCE ONE Administration Lorazepam 2 mg 05/30/23 21:56 05/30/23 22:10 Lorazepam 2 Mg/Ml Vial IM 05/30/23 21:57 2 mg ONCE ONE Administration Olanzapine 5 mg 05/30/23 21:56 05/30/23 22:10 Olanzapine 10 Mg Vial IM 05/30/23 21:57 5 mg ONCE ONE Administration Medical Decision Making Medical Decision Making MDM Narrative: 23-year-old male with history and clinical presentation consistent with poor medication compliance and suspect sandy, decompensated bipolar. Hematologic indices demonstrate leukocytosis as well as a left shift but patient is not febrile and there is a stable normocytic anemia without thrombocytopenia. Chemistry indices do not demonstrate an DIOMEDES there is no electrolyte derangements, there is a mild bump in transaminase levels of unclear significance as patient has no complaints of abdominal discomfort. Urinalysis is negative for UTI but there is noted to be significant ketones suggesting a component of dehydration as patient has no history diabetes. Toxicology is negative for polysubstance use, alcohol level is undetectable but lithium levels are noted to be subtherapeutic. 2155: Nursing informed me that patient is tying a towel around his neck, tried speaking to the patient but he would not respond. Patient had been in the bathroom presumably taking a shower for more than 30 minutes. He has torn his gown and is sitting in the shower with a white towel over his head. Medication restrain initiated. f/u Tylenol/ASA/COVID Differential Diagnosis Differential Diagnoses: The differential diagnosis associated with the presentation includes Please see the discussion above Admission/Observation Consideration of admission/observation: Escalation of care including admission/observation considered Please see the discussion above Lab Data 05/30/23 20:36 05/30/23 20:36 Labs: Lab Results 05/30/23 Range/Units 20:36 WBC 15.7 H (4.8-10.8) X10*3/uL RBC 4.84 (4.60-5.80) X10*6/uL Hgb 13.9 L (14.0-18.0) g/dl Hct 41.6 L (42.0-52.0) % MCV 86.0 (80.0-98.0) fL MCH 28.7 (27.0-33.0) pg MCHC 33.4 (31.0-36.0) g/dl RDW 13.3 (11.0-16.0) % Plt Count 228 (160-400) X10*3/uL MPV 12.1 (9.4-12.4) fL Immature Gran % (Auto) 0.4 (0.0-0.4) % Neut % (Auto) 74.6 H (45-73) % Lymph % (Auto) 14.4 L (20-40) % [place] % (Auto) 9.8 (2-11) % Eos % (Auto) 0.3 (0-4) % Baso % (Auto) 0.5 (0-2) % Lymph # (Auto) 2.3 (1.2-4.9) X10*3/uL [place] # (Auto) 1.5 H (0.1-1.2) X10*3/uL Eos # (Auto) 0.1 (0.0-0.4) X10*3/uL Baso # (Auto) 0.1 (0.0-0.2) X10*3/uL Abs Immat Gran (auto) 0.06 H (0.00-0.03) X10*3/uL Absolute Neuts (auto) 11.7 H (2.0-8.3) x10*3/uL Absolute Nucleated RBC 0.000 (0.0-0.012) X10*3/uL Nucleated RBC % (auto) 0.0 (0.0-0.2) /100WBC Smear Tech's Comments VERIFIED Sodium 138 (135-145) mmol/L Potassium 3.8 (3.3-5.1) mmol/L Chloride 106 (96-108) mmol/L Carbon Dioxide 19 L (22-29) mmol/L Anion Gap 17 (12-20) BUN 11 (9-16) mg/dL Creatinine 0.93 (0.5-1.4) mg/dL Estim Creat Clear Calc 155.6 Estimated GFR > 60 Random Glucose 101 (60-115) mg/dL Calcium 9.6 (8.4-10.2) mg/dL Total Bilirubin 0.6 (0.0-1.0) mg/dL AST 78 H (5-37) U/L ALT 41 H (0-40) U/L Alkaline Phosphatase 53 (39-117) U/L Total Protein 7.2 (6.5-8.0) g/dL Albumin 4.6 (3.5-5.0) g/dL Urine Color Yellow Urine Appearance Clear Urine pH 6.0 (5.0-9.0) Ur Specific [place] 1.020 (1.005-1.025) Urine Protein Trace (Neg-Trace) mg/dL Urine Glucose (UA) Negative (Negative) mg/dL Urine Ketones >=160 (Negative) mg/dL Urine Blood Negative (Negative) Urine Nitrite Negative (Negative) Ur Leukocyte Esterase Negative (Negative) Urine Opiates Screen Not Detected (Not Detect) Urine Fentanyl Screen Not Detected (Not Detect) Ur Barbiturates Screen Not Detected (Not Detect) Ur Phencyclidine Scrn Not Detected (Not Detect) Ur Amphetamines Screen Not Detected (Not Detect) U Benzodiazepines Scrn Not Detected (Not Detect) [place] 0.44 L (0.60-1.20) mmol/L Urine Cocaine Screen Not Detected (Not Detect) U Marijuana (THC) Screen Not Detected (Not Detect) Ethyl Alcohol < 10 mg/dL Discharge Plan Discharge Clinical Impression: Sandy Patient Disposition: Still a Patient Prescriptions: No Action lithium carbonate 300 mg Capsule 600 mg PO DAILY Qty: 60 0RF lithium carbonate 300 mg Capsule 900 mg PO BEDTIME Qty: 90 0RF oxcarbazepine 300 mg tablet 300 mg PO BID lamotrigine 200 mg tablet 200 mg PO BEDTIME cholecalciferol (vitamin D3) 50 mcg (2,000 unit) tablet 50 mcg PO DAILY cyanocobalamin (vitamin B-12) [Vitamin B-12] 1,000 mcg tablet 1,000 mcg PO DAILY omega-3 fatty acids-fish oil [Fish Oil] 360-1,200 mg capsule 2 cap PO DAILY ascorbic acid (vitamin C) 1,000 mg tablet 1,000 mg PO BID Interventions: [place]-Suicide Risk Severity Scale Last Done: 05/30/23 20:23
[2023-05-30 22:21] VITALS: RESP 18
[2023-05-30 22:36] VITALS: RESP 18
[2023-05-30 22:51] VITALS: RESP 16
[2023-05-30 23:06] VITALS: RESP 16
[2023-05-30 23:16] LABS: Acetaminophen LAB < 3 mcg/mL (<30); Salicylate < 5.0 mg/dL (15-30)
--- NOTE | 2023-05-31 | ECG_ITS ---
Test Reason : check qt interval Blood Pressure : / mmHG Vent. Rate : 057 BPM Atrial Rate : 057 BPM P-R Int : 138 ms QRS Dur : 102 ms QT Int : 436 ms P-R-T Axes : 017 017 -24 degrees QTc Int : 424 ms Sinus bradycardia with sinus arrhythmia RSR' or QR pattern in V1 suggests right ventricular conduction delay T wave abnormality, consider inferior ischemia Abnormal ECG When compared with ECG of 17-AUG-2020 23:02, T wave inversion now evident in Inferior leads Nonspecific T wave abnormality, improved in Lateral leads Referred By: Jaspreet Turner Electronically Signed By:SIS YI MD
--- NOTE | 2023-05-31 00:03 | PC.NURSE ---
Pt arrived from triage. Report received from tin plater, Mabel. Pt reports he has not being sleeping and has endless energy. Requesting to speaking with Care team. On arrival PT noted to have pressured speech. Pt dressed in several of layers of clothing and drinking water very quickly..He notes that he was shoveling nonstop for 11 hours today. Pt states he has been compliant with his meds. Pt changed over and belonging secured without issue. brought to bed 5. Pt rested and provided a sandwich juice and gingerale. PT noted to be doing exercises in room and pacing around. Pt began dipping his hand wrapped in a towel into his gingerale cup and wiping his face. PT offered a shower to help cool off. Pt was in the shower for about 30 minutes with regular check-ins with Yary Johnson and this RN. During last check in, pt was found sitting on the floor of shower with towel covering head and wrapped about neck. Pt would not answer any questions and was not redirectable. Security called for assistance. Dr. Hall in bathroom to assess PT and new orders placed. While getting medication ready, pt left bathroom and went to 7/8 in which he stated he needed more room to take on security as there was only one of him versus 3 of them. PT notified that IM was ordered and while initially threatening to staff regarding the IM, pt became agreeable to taking the medication without restraints or issues. PT sat in chair in his room, and willingly accepted the IM doses. 1-1 initiated, vital signs taken q15, and restraint paperwork completed. Pt sleeping, breathing even and unlabored. Plan of care ongoing
--- NOTE | 2023-05-31 04:08 | PC.NURSE ---
pt oob questioning when care team will be in to see him
[2023-05-31 06:00] VITALS: BP 126/55; PULSE 60; RESP 16; TEMP 36.7; O2SAT 97
[2023-05-31 06:16] LABS: COVID-19 Test Negative (Negative); IDNOW Serial# 08D9AD1C
--- NOTE | 2023-05-31 07:16 | PHA.MEDREC ---
Pharmacy Consult ? Medication Reconciliation Pharmacy has completed the medication reconciliation. Reviewed med rec done by nursing
--- NOTE | 2023-05-31 11:42 | PC.NURSE ---
assumed care of pt at 1100, pt calm and cooperative with plan of care at this time, resting in common area speaking w biology research assistant.
--- NOTE | 2023-05-31 13:43 | MHC.CARE ---
Post admission, Tatyana co-ed is able to follow this patient/ check in with patient and family. Melina lyon [facility] should be called [phone]
[2023-05-31 16:52] VITALS: PULSE 86; RESP 14; O2SAT 97
--- NOTE | 2023-05-31 16:52 | PC.NURSE ---
Assumed care of patient at 1500, patient has been calm and cooperative with care thus far with this RN. Pt has been ambulatory around pod, speaking with other patients in a productive manner. Pt reporting bilateral hand pain but denies injury. Provided with ice packs with positive effect. Pt otherwise waiting for inpt bed at this time
--- NOTE | 2023-05-31 18:28 | PC.NURSE ---
Han has been doing very well today, very directable, calm and cooperative. Using outlets such as watching TV, playing games and exercising to keep himself occupied. Pt had multiple productive conversations with both staff and other pod members
--- NOTE | 2023-05-31 19:19 | PC.NURSE ---
Pt calm and cooperative. Pt ambulating throughout unit. Plan of care ongoing.
--- NOTE | 2023-05-31 19:26 | PC.NURSE ---
This RN assumed care of pt @ 1900. Plan of care ongoing.
[2023-05-31] MEDS: Ascorbic Acid 500 MG TABLET 1000 MG PO (20:41)
[2023-05-31] MEDS: lamoTRIgine 100 MG TABLET 200 MG PO (20:41)
[2023-05-31] MEDS: Lithium Carbonate 300 MG CAPSULE 900 MG PO (20:42)
[2023-05-31] MEDS: OXcarbazepine 300 MG TABLET PO (20:42)
--- NOTE | 2023-05-31 20:48 | PC.NURSE ---
Pt medicated per jul. Pt calm and cooperative. Pt requested and given clean blanket. Plan of care ongoing.
--- NOTE | 2023-05-31 22:04 | PC.NURSE ---
Pt placing sheet over head and face. Pt redirected. Pt requested and given water. Pt requesting something for sleep. Pt states you think I can get benadryl to help me sleep. This RN explained the provider will be notified of his request. Plan of care ongoing.
--- NOTE | 2023-05-31 22:17 | PC.NURSE ---
Pt requesting and given drinks. Plan of care ongoing.
--- NOTE | 2023-05-31 23:00 | PC.NURSE ---
Pt following and speaking with tech throughout unit. Plan of care ongoing.
--- NOTE | 2023-05-31 23:03 | PC.NURSE ---
Pt now refusing the benadryl requested. Pt states if I need later. I will let you know. Plan of care ongoing.
--- NOTE | 2023-06-01 01:08 | PC.NURSE ---
Pt requested and given tooth brush and mouth wash. Pt requesting his airpod so he can listen to music which was approved by RN donna. Plan of care ongoing.
--- NOTE | 2023-06-01 01:19 | PC.NURSE ---
Pt requested and given milk. Pt pacing in room. Plan of care ongoing.
--- NOTE | 2023-06-01 01:33 | PC.NURSE ---
Pt went to restroom with pitcher of ice water and tossed it over his head. Pt came out of restroom and asked for more water. Pt requested and given juice. Pt redirected back into his room. Plan of care ongoing.
--- NOTE | 2023-06-01 01:37 | PC.NURSE ---
Pt back at the nurses station requesting to speak to security. This RN asked what he needed security for pt did not want to state why. Pt advised that it may be a very long time before security can come speak with him. Pt states im ok with it. if they come, they come. If they don't that's fine too. Plan of care ongoing.
--- NOTE | 2023-06-01 01:45 | PC.NURSE ---
pt requested and given bible and writing paper.
--- NOTE | 2023-06-01 03:09 | PC.NURSE ---
Pt at nurses station asking if he can sit under the desk in his room. This RN advised against it and pt cooperative. Plan of care ongoing.
--- NOTE | 2023-06-01 04:33 | PC.NURSE ---
Pt requesting water and before this RN could answer him pt tossed the pitcher into the nurses station. Pt walked away and turned the lights off to the entire unit. Pt requesting to speak with security. Security with pt now. Pt got into the shower without permission. Plan of care ongoing.
--- NOTE | 2023-06-01 04:52 | PC.NURSE ---
Pt came out of the restroom stating dont be lying you fucking bitch, you fucking dummy and then charged at RN while RN was sitting at nurses station. Provider with pt. Security with pt. Pt given water as requested. Plan of care ongoing.
[2023-06-01 05:20] VITALS: BP 150/89; PULSE 75; RESP 19; TEMP 37; O2SAT 98
--- NOTE | 2023-06-01 05:21 | PC.NURSE ---
Pt out in common area. Plan of care ongoing.
--- NOTE | 2023-06-01 05:54 | PC.NURSE ---
Pt standing at nurses station threatening this RN. Pt states You are a stupid bitch and if you were a man I would slap the shit out of you. Pt is triggering the other pt on the unit. Security called due to both pts arguing back and forth. Plan of care ongoing.
[2023-06-01] MEDS: diphenhydrAMINE HCL 50 MG/ML VIAL IM (07:36)
[2023-06-01] MEDS: LORazepam 2 MG/ML VIAL IM (07:36)
[2023-06-01] MEDS: Haloperidol Lactate 5 MG/ML VIAL 10 MG IM (07:36)
--- NOTE | 2023-06-01 07:39 | PC.NURSE ---
Patient picked up chair in room and was verbally threatening staff. Security and provider entered room to speak with patient. Patient was ordered 2 mg ativan, 10 mg of haldol and 50 mg of benadryl. All were given IM per patient request and were administered by the provider not this nurse. Patient is sitting in room speaking to security resp are even and unlabored, able to verbalize concerns.
[2023-06-01 07:50] VITALS: BP 146/101; PULSE 107; RESP 19; TEMP 37.4; O2SAT 97
--- NOTE | 2023-06-01 08:34 | PC.NURSE ---
Patient continues to rest comfortably in bed, no complaints of pain or discomfort at this time, vitals are within normal limits will continue to monitor. Warm blanket provided for patient.
[2023-06-01 08:52] VITALS: BP 134/61; PULSE 78; TEMP 37; O2SAT 98
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
--- NOTE | 2023-06-01 12:53 | MHC.CARE ---
RAD Team conducted statewide bedsearch. Referral faxed- ?referral sent [facility], [facility], [facility], [facility], [facility]? [facility]? [facility]? [facility], [facility]? [facility] Team to f/u with facilities to see outcome, will continue tomorrow if deemed necessary
--- NOTE | 2023-06-01 15:04 | PC.NURSE ---
conversation had with pt and CARE team. Per CARE team, a care plan will be made for pt. Pt will be moved to [facility] when patient back there leaves. Per VAIBHAV Cardoso, VAIBHAV Orozco and Jesika, CARE team patient is allowed to have his ear buds. Pt is agreeable to controlled use of his ear buds. He stated If I get too energetic can we make a plan to take the ear buds for 10 minutes for me to cool down. This RN and pt made agreement for that plan to occur
[2023-06-01 15:09] VITALS: PULSE 74; RESP 14; O2SAT 97
--- NOTE | 2023-06-01 19:10 | PC.NURSE ---
patient relaxing in common area behind nurses station at present, somewhat pressured speech seemingly mostly compliant, asking staff for certain things seemingly q ten minutes or so (phone, talk to security, food in fridge) maintaining safe behavior.
[2023-06-01] MEDS: Bacitracin Oint 0.9 GM PACKET 1 APPL TOPICAL (19:47)
[2023-06-01 20:24] VITALS: BP 132/67; PULSE 60; RESP 20; TEMP 36.6; O2SAT 98
--- NOTE | 2023-06-01 20:38 | PC.NURSE ---
patient demands prozac, told him it was generally a daytime med. patient was solicited to take his evening meds, patient declined. im not taking my meds until i talk to a doctor
[2023-06-01] MEDS: Lithium Carbonate 300 MG CAPSULE 900 MG PO (20:57)
[2023-06-01] MEDS: OLANZapine ODT 10 MG TAB.RAPDIS 20 MG TRANSLINGU (20:57)
[2023-06-01] MEDS: LORazepam 1 MG TABLET PO (20:57)
[2023-06-01] MEDS: OXcarbazepine 300 MG TABLET PO (20:58)
[2023-06-01] MEDS: Ascorbic Acid 500 MG TABLET 1000 MG PO (20:58)
[2023-06-01] MEDS: lamoTRIgine 100 MG TABLET 200 MG PO (20:58)
--- NOTE | 2023-06-02 03:21 | PC.NURSE ---
assumed care of pt at this time. pt sleeping in room resp even and unlabored.
--- NOTE | 2023-06-02 05:21 | PC.NURSE ---
Addendum entered by Celso Whitehead 06/02/23 05:37: pt requested bacitracin for lips; provided per dr. beth approval. Original Note: pt awoke approx 0400 calm/cooperative engaging in conversation. however overtime pt became more upset about feeling drowsy, believes it is d/t taking zyprexa and ativan last night. pt requested to shower. upon return to room pt requested orange juice then became upset about still feeling drowsy. pt threw juice across room however did not show aggression, was able to vent feelings with security and this RN. pt put on clean gown and is now in room. requesting to speak to a doctor about his plan of care; reassured am rounding will take place.
[2023-06-02] MEDS: Bacitracin Oint 0.9 GM PACKET 1 APPL TOPICAL (05:39)
[2023-06-02 06:47] VITALS: BP 132/62; PULSE 62; RESP 18; TEMP 36.6; O2SAT 98
[2023-06-02] MEDS: Cyanocobalamin (Vitamin B-12) 1,000 MCG TABLET 1000 MCG PO (08:08)
[2023-06-02] MEDS: Cholecalciferol (Vitamin D3) 25 MCG TABLET 50 MCG PO (08:08)
[2023-06-02] MEDS: Ascorbic Acid 500 MG TABLET 1000 MG PO ×2 (08:08→20:36)
[2023-06-02] MEDS: Lithium Carbonate 300 MG CAPSULE 600 MG PO (08:08)
[2023-06-02] MEDS: OXcarbazepine 300 MG TABLET PO ×2 (08:08→20:35)
--- NOTE | 2023-06-02 09:05 | PC.NURSE ---
Pt ambulatory around unit, making frequent requests from staff. pt took meds except for zyprexa which he states I felt awful when I woke up from that, I need the doctor to tell me what the chemistry is before I take it again
--- NOTE | 2023-06-02 10:45 | PC.NURSE ---
Pt asked for ativan 1 mg. order obtained. pt now states he does not want medication.
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
[2023-06-02] MEDS: FLUoxetine HCl Oral Solution 20 MG/5 ML SOLUTION 5 MG PO (12:18)
[2023-06-02] MEDS: HaloperidoL 5 MG TABLET 10 MG PO (12:18)
--- NOTE | 2023-06-02 13:09 | PC.NURSE ---
Pt ambulatory around unit, interacting politely with other patients. staying calm and entertaining himself.
--- NOTE | 2023-06-02 13:32 | PC.NURSE ---
Pt eating meal in common area. Interacting easily with staff and other patients.
[2023-06-02 15:56] LABS: COVID-19 Test Negative (Negative); IDNOW Serial# 152EDE1D
[2023-06-02 17:44] VITALS: BP 149/66; PULSE 65; RESP 20; TEMP 36.5; O2SAT 98
[2023-06-02 19:05] VITALS: BP 164/83; PULSE 64; RESP 16; O2SAT 100
--- NOTE | 2023-06-02 19:06 | PC.ADMIT ---
Pt admitted to M3 at 1900 via stretcher from [facility]. Pt signed a CV prior to arrival. Vitals taken. recovery assistant completed. No skin concerns or contraband found. Pt oriented to unit. Admission to be completed by shift coming on. Pt placed on 15 minute safety checks.
[2023-06-02 20:07] VITALS: BMI 31.8
[2023-06-02] MEDS: lamoTRIgine 100 MG TABLET PO (20:35)
[2023-06-02] MEDS: Lithium Carbonate 300 MG CAPSULE 900 MG PO (20:35)
--- NOTE | 2023-06-03 00:05 | PC.NURSE ---
Addendum entered by Chen Medel RN 06/03/23 00:45: patient began kicking exit doors and punching tong/doors stating that he was going to keep punching and kicking things until the doctor came to talk to him. patient became agnerier when he was told that the psychiatrist was not currently in the building. patient kicked his way through the jabier port doors and ran onto [place] [id number] (medical unit). security was called and the patient came back to the unit without resistance. a 1 time order for Ativan 2mg IM was obtained and the medication was administered into the patients right deltoid. No further aggression at this time. continue to monitor for safety, Original Note: Gino refused his HS Haldol. later he asked this rfp writer to something for anxiety. he declined the atarax and zyprexa which were offered. I want, Ativan. I should be able to have it I had it downstairs . patient declined both medications. If I can't have Ativan then I don't want anything
[2023-06-03] MEDS: LORazepam 2 MG/ML VIAL IM ×2 (00:42→15:05)
[2023-06-03 06:00] VITALS: BP 129/82; PULSE 77; RESP 16; TEMP 36.3; O2SAT 98
[2023-06-03] MEDS: LORazepam 1 MG TABLET 2 MG PO (06:11)
[2023-06-03 07:00] VITALS: BMI 31.2
[2023-06-03 08:07] LABS: MANUAL DIFF FLAG NO
[2023-06-03 08:08] LABS: Basophils Absolute Auto 0.1 X10*3/uL (0.0-0.2); Basophils Percent Auto 0.6 % (0-2); Eosinophils Absolute Auto 0.4 X10*3/uL (0.0-0.4); Hematocrit 43.9 % (42.0-52.0); Hemoglobin 14.1 g/dl (14.0-18.0); Imm Gran Abs Auto 0.02 X10*3/uL (0.00-0.03); Imm Gran Pct Auto 0.2 % (0.0-0.4); Lymphocytes Absolute Auto 1.5 X10*3/uL (1.2-4.9); Lymphocytes Percent Auto 16.6 % (20-40); Mean Corpuscular HGB Conc 32.1 g/dl (31.0-36.0); Mean Corpuscular Hemoglobin 28.3 pg (27.0-33.0); Mean Platelet Volume 11.9 fL (9.4-12.4); Monocytes Percent Auto 11.7 % (2-11); Neutrophils Percent Auto 66.9 % (45-73); Platelet Count 226 X10*3/uL (160-400); Red Blood Count 4.99 X10*6/uL (4.60-5.80); Red Cell Distribution Width 13.3 % (11.0-16.0); White Blood Count 8.9 X10*3/uL (4.8-10.8)
[2023-06-03 08:16] LABS: Estimated Average Glucose 91 mg/dL; Hemoglobin A1c % 4.8 % (<6.0)
[2023-06-03 08:29] LABS: Alanine Aminotransferase 52 U/L (0-40); Albumin Level 4.5 g/dL (3.5-5.0); Alkaline Phosphatase 56 U/L (39-117); Anion Gap 11 (12-20); Aspartate Amino Transferase 46 U/L (5-37); Bilirubin Total 0.3 mg/dL (0.0-1.0); Blood Urea Nitrogen 13 mg/dL (9-16); Calcium 10.3 mg/dL (8.4-10.2); Carbon Dioxide 27 mmol/L (22-29); Chloride 108 mmol/L (96-108); Cholesterol 115 mg/dL (<200); Estimated Glomerular Filt Rate > 60; Glucose Fasting 106 mg/dL (60-99); HDL Cholesterol 48 mg/dL (>40); LDL Cholesterol Calculated 56 mg/dL (<100); Potassium 4.5 mmol/L (3.3-5.1); Sodium 141 mmol/L (135-145); Total Protein 7.1 g/dL (6.5-8.0); Triglycerides 58 mg/dL (<150)
[2023-06-03] MEDS: Cholecalciferol (Vitamin D3) 25 MCG TABLET 50 MCG PO (08:34)
[2023-06-03] MEDS: Cyanocobalamin (Vitamin B-12) 1,000 MCG TABLET 1000 MCG PO (08:34)
[2023-06-03] MEDS: Lithium Carbonate 300 MG CAPSULE 600 MG PO (08:35)
[2023-06-03] MEDS: OXcarbazepine 300 MG TABLET PO ×2 (08:35→20:54)
[2023-06-03] MEDS: Ascorbic Acid 500 MG TABLET 1000 MG PO ×2 (08:35→20:54)
[2023-06-03 08:44] LABS: TSH reflex Free T4 0.97 uIU/mL (0.32-4.0)
[2023-06-03] MEDS: FLUoxetine HCl 10 MG CAPSULE PO (11:02)
[2023-06-03] MEDS: HaloperidoL 5 MG TABLET 10 MG PO (11:02)
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
--- NOTE | 2023-06-03 14:06 | PC.NURSE ---
Pt signed a 3 day on 06/03, up on Wednesday06/09/23
[2023-06-03] MEDS: diphenhydrAMINE HCL 50 MG/ML VIAL IM (15:05)
[2023-06-03] MEDS: Haloperidol Lactate 5 MG/ML VIAL 10 MG IM (15:05)
--- NOTE | 2023-06-03 17:41 | PC.NURSE ---
Pt approached the nurses station angry that he had received Haldol scheduled after meeting with the MD. Pt walked away down the hallway and began sparring with the exit door with the shirt he had been wearing and wrapped it around his fist. Pt punching the door and door latch over and over, not able to respond to TW. Pt then walked to the window at the end of hallway and was hitting that. Staff continuing to not respond to redirection. Pt pt thn began punching the other exit door and when approached pt turned facing TW in fighting stance. Security had been called at this point and approached pt to try and redirect pt. Pt went to quiet space and spoke to security and the MD. Haldol 10MG, Ativan 2 MG, and 50mg Benadryl IM. Pt accepted medications w/o difficulty. Pt then went to sensory room to nap.
[2023-06-03] MEDS: lamoTRIgine 100 MG TABLET PO (20:54)
[2023-06-03] MEDS: LORazepam 1 MG TABLET PO (20:54)
[2023-06-03] MEDS: HaloperidoL 5 MG TABLET PO (20:54)
[2023-06-03] MEDS: Lithium Carbonate 300 MG CAPSULE 900 MG PO (20:55)
[2023-06-03] MEDS: Throat Lozenge, Medicated LOZENGE 1 LOZENGE MUCOUS MEM (23:26)
[2023-06-04] MEDS: Throat Lozenge, Medicated LOZENGE 1 LOZENGE MUCOUS MEM ×3 (00:14→04:11)
[2023-06-04 08:21] VITALS: BP 151/74; PULSE 86; RESP 16; TEMP 36.6; O2SAT 98
[2023-06-04] MEDS: Lithium Carbonate 300 MG CAPSULE 600 MG PO (09:08)
[2023-06-04] MEDS: Cyanocobalamin (Vitamin B-12) 1,000 MCG TABLET 1000 MCG PO (09:08)
[2023-06-04] MEDS: OXcarbazepine 300 MG TABLET PO (09:08)
[2023-06-04] MEDS: Ascorbic Acid 500 MG TABLET 1000 MG PO (09:08)
[2023-06-04] MEDS: Cholecalciferol (Vitamin D3) 25 MCG TABLET 50 MCG PO (09:08)
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
[2023-06-04] MEDS: LORazepam 1 MG TABLET PO (10:49)
== END 2023-06-04 12:11 | disposition home or self-care (01) | DRG 885 ==
LOC: HO.ED 06-01 07:24 → HO.PADLT16 06-02 18:40
PROVIDERS: Emergency Medicine; Student in an Organized Health Care Education/Training Program; Admitting Provider Psychiatry & Neurology Psychiatry; Emergency Provider Emergency Medicine Emergency Medical Services; PCP Physician Assistant; Visit Provider Psychiatry & Neurology Psychiatry
DX: F25.0 Schizoaffective disorder, bipolar type (principal); Z20.822 Contact with and (suspected) exposure to COVID-19; Z79.899 Other long term (current) drug therapy
CPT/HCPCS: 36415; 80053; 80061; 80143; 80178; 80179; 80307; 81003; 83036; 84443; 85025; 87635; 93005; 99285; J1200; J1630; J2060; J2359; S9485

== ENCOUNTER → 2023-05-30 20:40 | Outpatient (BNV) | payer OTHER, SELFPAY | PROVIDERS: Emergency Provider Emergency Medicine Emergency Medical Services; PCP Physician Assistant; Visit Provider Social Worker | DX: F25.0 Schizoaffective disorder, bipolar type (principal) | CPT/HCPCS: 90792; 99239; 99285 ==

== ENCOUNTER → 2023-05-31 12:34 | Outpatient (BNV) | payer OTHER, SELFPAY | PROVIDERS: Emergency Provider Student in an Organized Health Care Education/Training Program; PCP Physician Assistant; Visit Provider Internal Medicine Cardiovascular Disease | DX: R00.1 Bradycardia, unspecified (principal); R94.31 Abnormal electrocardiogram [ECG] [EKG] | CPT/HCPCS: 93010 ==

== ENCOUNTER 2023-06-05 19:41 | Emergency (ER) | payer OTHER, SELFPAY ==
--- NOTE | ~2023-06-05 | XR_ITS ---
EXAMINATION: XR NASAL BONES CLINICAL INFORMATION: Pain status-post injury. COMPARISON: None available. TECHNIQUE: 3 views of the nasal bones were obtained. FINDINGS: A slightly angulated, apex anterior faint fracture is seen of the mid left nasal bone. No dislocation is seen. The maxillary spine is intact. There is no focal soft tissue swelling, gas or foreign body. XR/XR nasal bones min 3V IMPRESSION: A faint, mildly angulated fracture seen of the mid left nasal bone.
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
[2023-06-05 19:53] VITALS: BP 159/68; PULSE 81; RESP 16; TEMP 37.4; O2SAT 98; BMI 31.2
[2023-06-05 20:04] LABS: Amphetamine Screen Urine Not Detected (Not Detect); Barbiturates, Urine Not Detected (Not Detect); Benzodiazepines Screen Urine Not Detected (Not Detect); Cannabinoid Screen Urine Not Detected (Not Detect); Cocaine Screen Urine Not Detected (Not Detect); Fentanyl, urine Not Detected (Not Detect); Opiate Screen Urine Not Detected (Not Detect); Phencyclidine Screen Urine Not Detected (Not Detect)
[2023-06-05 20:13] LABS: Appearance Urine Clear; Color Urine Yellow; Glucose Urine UA Negative (Negative); Leukocyte Esterase Urine Trace (Negative); Nitrite Urine Negative (Negative); UMIC TRIGGER UACC YES; Urine Blood Negative (Negative); Urine Ketones Negative (Negative); Urine Protein Negative (Neg-Trace)
[2023-06-05 20:14] LABS: Bacteria Urine None Seen (None Seen); Hyaline Casts Urine 0-2 /LPF (0-2); RBC Urine 0-2 /HPF (0-2); Squamous Epithelial Cell Urine 0-2 /HPF (0-2); WBC Urine 0-5 /HPF (0-5)
[2023-06-05] MEDS: Haloperidol Lactate 5 MG/ML VIAL IM (20:22)
[2023-06-05] MEDS: LORazepam 2 MG/ML VIAL IM (20:22)
[2023-06-05] MEDS: diphenhydrAMINE HCL 50 MG/ML VIAL IM (20:22)
[2023-06-05 20:25] LABS: MANUAL DIFF FLAG NO
[2023-06-05 20:26] LABS: Basophils Absolute Auto 0.1 X10*3/uL (0.0-0.2); Basophils Percent Auto 0.8 % (0-2); Eosinophils Absolute Auto 0.1 X10*3/uL (0.0-0.4); Eosinophils Percent Auto 1.2 % (0-4); Hematocrit 45.2 % (42.0-52.0); Hemoglobin 14.7 g/dl (14.0-18.0); Imm Gran Abs Auto 0.04 X10*3/uL (0.00-0.03); Imm Gran Pct Auto 0.3 % (0.0-0.4); Lymphocytes Absolute Auto 2.8 X10*3/uL (1.2-4.9); Lymphocytes Percent Auto 23.8 % (20-40); Mean Corpuscular HGB Conc 32.5 g/dl (31.0-36.0); Mean Corpuscular Hemoglobin 28.3 pg (27.0-33.0); Mean Corpuscular Volume 86.9 fL (80.0-98.0); Mean Platelet Volume 11.4 fL (9.4-12.4); Monocytes Absolute Auto 1.4 X10*3/uL (0.1-1.2); Monocytes Percent Auto 12.4 % (2-11); Neutrophils Absolute Auto 7.1 x10*3/uL (2.0-8.3); Neutrophils Percent Auto 61.5 % (45-73); Platelet Count 280 X10*3/uL (160-400); Red Cell Distribution Width 13.4 % (11.0-16.0); White Blood Count 11.6 X10*3/uL (4.8-10.8)
--- NOTE | 2023-06-05 20:31 | ED_ITS ---
HPI - General Adult General Chief complaint: Psychiatric Symptoms Stated complaint: SI Time Seen by Provider: 06/05/23 19:51 Source: patient, RN notes reviewed and old records reviewed Mode of arrival: ambulatory Limitations: altered mental status History of Present Illness HPI narrative: 23-year-old male with history of bipolar disorder presents for evaluation of auditory and visual hallucinations. Patient was discharged from inpatient psychiatry yesterday at his request He states since going home he is continued to feel ?out of whack. ? He reports homicidal ideation towards ?bad people only. ? He denies any suicidal ideation Patient states that he is ?a vessel for Garret. ? He states that he is aware he is not Garret Kiel He is requesting medications to help settle him down Related Data Home Medications Medication Instructions Recorded Confirmed oxcarbazepine 300 mg tablet 300 mg PO BID 12/31/21 06/05/23 ascorbic acid (vitamin C) 1,000 mg 1,000 mg PO BID 07/20/22 06/05/23 tablet cholecalciferol (vitamin D3) 50 50 mcg PO DAILY 07/20/22 06/05/23 mcg (2,000 unit) tablet cyanocobalamin (vitamin B-12) 1,000 mcg PO DAILY 07/20/22 06/05/23 1,000 mcg tablet (Vitamin B-12) omega-3 fatty acids-fish oil 360 2 cap PO DAILY 07/20/22 06/05/23 mg-1,200 mg capsule (Fish Oil) Previous Rx's Medication Instructions Recorded lithium carbonate 300 mg capsule 900 mg (3 x 300 mg) PO BEDTIME #90 03/11/21 caps lamotrigine 100 mg tablet 100 mg PO BEDTIME #0 tabs 06/04/23 Allergies Allergy/AdvReac Type Severity Reaction Status Date / Time fluoxetine AdvReac Severe giuliana Verified 06/05/23 20:17 chlorpromazine AdvReac Intermediate sleep Verified 06/05/23 20:17 [From Thorazine] walking Review of Systems 2 Constitutional: Constitutional: Reports as per HPI, Denies chills, Denies fatigue, Denies fever(s) and Denies headache(s) ENT: Denies headache(s) Cardiovascular: Cardiovascular: Denies chest pain and Denies dyspnea Respiratory: Respiratory: Denies cough and Denies dyspnea Gastrointestinal: Gastrointestinal: Denies abdominal pain, Denies constipation and Denies vomiting Genitourinary: Genitourinary: Denies difficulty urinating and Denies dysuria Neurologic: Denies headache(s) and Denies focal weakness Endocrine: Endocrine: Denies fatigue PMFSH Past Medical History Onset Date is defined in the Problem List Problems that require an onset date and time if occurred within 24 hrs of arrival to the ED Aortic Dissection and Rupture; Neurologic impairment; Cardiopulmonary Arrest; Endotracheal Intubation; Insertion or Replacement of Mechanical Circulatory Assist Device Medical History (Updated 06/05/23 @ 21:05 by Damien Austin) Schizoaffective disorder, bipolar type Fibroepithelial polyp No known health problems Bipolar 1 disorder with moderate giuliana Depression Anxiety Surgical History S/P colonoscopy H/O endoscopy Family History Family History Mother Alcohol abuse Mental problem Father Alcohol abuse Mental problem Melanoma Social History Social History Household Members: Family Household Members Other:: mom and brother Housing: House Do you presently have visiting nurse or other home services: No Alcohol intake: current Alcohol intake frequency: a few times a month Comment: none Patient Tobacco Use Status: Never used Tobacco Smoked in Last 30 Days: No e-Cigarette/Vaping Use: Never Used Second Hand Smoke Exposure: Yes ( sometimes but not too often ) Use of substances other than those prescribed or required for medical reasons: Refusing to respond Advance Directives: No Advance Directives Information Provided: Yes service: No Current occupational status: disabled Current occupation: Student - Online Sexual orientation: Straight/Heterosexual Cognitive needs: No Hearing needs: No Vision needs: No Physical Exam ED Vital Signs: Vital Signs - 24 hr 06/05/23 19:53 06/05/23 22:00 06/06/23 01:49 Temperature 99.4 F 97.6 F Pulse Rate 81 83 Respiratory Rate 16 16 18 Blood Pressure 159/68 H 147/85 H Pulse Oximetry 98 98 Oxygen Delivery Method Room Air Room Air BMI result Body Mass Index 31.2 Const General: healthy appearing, comfortable, no acute distress, alert and awake Nutritional Appearance: well nourished Orientation/consciousness: patient oriented x3 HENMT Head: Yes normocephalic and Yes atraumatic Eyes Eyelids: Yes eyelids normal Conjunctivae: conjunctivae normal Sclerae: sclerae normal Corneas: corneas normal Pupils: Equal, round and reactive pupils present EOM: EOMs intact bilaterally Neck Neck: Yes full ROM Resp Effort & Inspection: normal respiratory effort, able to speak in complete sentences and not labored Skin General skin exam: elasticity normal Neuro General: patient oriented x3 Cranial nerves: Yes Equal, round and reactive pupils present and Yes Bilaterally intact EOM present Cognition (Neuro): normal cognition Extrem Other: Moving all extremities well without any obvious deformities Psych Appearance: grossly normal Mental Status: mental status grossly normal Affect: Animated affect present and Ecstatic affect present Attitude: cooperative Thought process: Circumstantial thought process present Thought content: Homicidality present and Paranoid delusions present Insight: Limited insight present (Psych) Judgement: Limited judgement present (Psych) Course Course Course Narrative: 02:18 Start physician observation Patient was seen by the care team. Obtain the following information from care team. Patient initially presented with SI but denies being suicidal at this time. The patient is delusional. Patient was recently admitted to and left 2 days prior and states he did not get all his medications. Patient was very aggressive during his inpatient admission. The patient has been aggressive in the ED Behavioral Health pot and did require chemical sedation. Care team requested that the patient to stay in the emergency department Behavioral Health Unit overnight so that the patient can get a psychiatric consult in the morning to determine disposition. Medications Administered Discontinued Medications Generic Name Dose Route Start Last Admin Trade Name Freq PRN Reason Stop Dose Admin Diphenhydramine HCl 50 mg 06/05/23 20:18 06/05/23 20:22 Diphenhydramine Hcl 50 Mg/Ml Vial IM 06/05/23 20:19 50 mg ONCE ONE Administration Haloperidol Lactate 5 mg 06/05/23 20:18 06/05/23 20:22 Haloperidol Lactate 5 Mg/Ml Vial IM 06/05/23 20:19 5 mg STAT STA Administration Lorazepam 2 mg 06/05/23 20:18 06/05/23 20:22 Lorazepam 2 Mg/Ml Vial IM 06/05/23 20:19 2 mg STAT STA Administration Medical Decision Making Medical Decision Making MDM Narrative: 23-year-old male with history of bipolar disorder presents for evaluation of a manic episode. He has some grandiose delusions as well as homicidal ideation. He will be medically cleared and will require a care team evaluation. Differential Diagnosis Differential Diagnoses: The differential diagnosis associated with the presentation includes Bipolar disorder Schizophrenia Substance abuse Agitation Lab Data 06/05/23 20:19 06/05/23 20:19 Labs: Lab Results 06/05/23 06/05/23 06/05/23 Range/Units 19:49 20:19 20:20 WBC 11.6 H (4.8-10.8) X10*3/uL RBC 5.20 (4.60-5.80) X10*6/uL Hgb 14.7 (14.0-18.0) g/dl Hct 45.2 (42.0-52.0) % MCV 86.9 (80.0-98.0) fL MCH 28.3 (27.0-33.0) pg MCHC 32.5 (31.0-36.0) g/dl RDW 13.4 (11.0-16.0) % Plt Count 280 (160-400) X10*3/uL MPV 11.4 (9.4-12.4) fL Immature Gran % (Auto) 0.3 (0.0-0.4) % Neut % (Auto) 61.5 (45-73) % Lymph % (Auto) 23.8 (20-40) % [place] % (Auto) 12.4 H (2-11) % Eos % (Auto) 1.2 (0-4) % Baso % (Auto) 0.8 (0-2) % Lymph # (Auto) 2.8 (1.2-4.9) X10*3/uL [place] # (Auto) 1.4 H (0.1-1.2) X10*3/uL Eos # (Auto) 0.1 (0.0-0.4) X10*3/uL Baso # (Auto) 0.1 (0.0-0.2) X10*3/uL Abs Immat Gran (auto) 0.04 H (0.00-0.03) X10*3/uL Absolute Neuts (auto) 7.1 (2.0-8.3) x10*3/uL Absolute Nucleated RBC 0.000 (0.0-0.012) X10*3/uL Nucleated RBC % (auto) 0.0 (0.0-0.2) /100WBC Sodium 142 (135-145) mmol/L Potassium 3.5 D (3.3-5.1) mmol/L Chloride 106 (96-108) mmol/L Carbon Dioxide 26 (22-29) mmol/L Anion Gap 14 (12-20) BUN 10 (9-16) mg/dL Creatinine 0.94 (0.5-1.4) mg/dL Estim Creat Clear Calc 150.0 Estimated GFR > 60 Random Glucose 103 (60-115) mg/dL Calcium 10.3 H (8.4-10.2) mg/dL Urine Color Yellow Urine Appearance Clear Urine pH 7.0 (5.0-9.0) Ur Specific [place] 1.010 (1.005-1.025) Urine Protein Negative (Neg-Trace) mg/dL Urine Glucose (UA) Negative (Negative) mg/dL Urine Ketones Negative (Negative) mg/dL Urine Blood Negative (Negative) Urine Nitrite Negative (Negative) Ur Leukocyte Esterase Trace H (Negative) Urine RBC 0-2 (0-2) /HPF Urine WBC 0-5 (0-5) /HPF Ur Squamous Epith Cells 0-2 (0-2) /HPF Urine Bacteria None Seen (None Seen) Hyaline Casts 0-2 (0-2) /LPF Urine Opiates Screen Not Detected (Not Detect) Urine Fentanyl Screen Not Detected (Not Detect) Ur Barbiturates Screen Not Detected (Not Detect) Ur Phencyclidine Scrn Not Detected (Not Detect) Ur Amphetamines Screen Not Detected (Not Detect) U Benzodiazepines Scrn Not Detected (Not Detect) Urine Cocaine Screen Not Detected (Not Detect) U Marijuana (THC) Screen Not Detected (Not Detect) Ethyl Alcohol < 10 mg/dL COVID-19 ([facility]) Negative (Negative) COVID-19 Clin Com See Note Discharge Plan Discharge Clinical Impression: Bipolar disorder Patient Disposition: Still a Patient Prescriptions: No Action lithium carbonate 300 mg Capsule 900 mg PO BEDTIME Qty: 90 0RF lamotrigine 100 mg Tablet 100 mg PO BEDTIME Qty: 0 0RF oxcarbazepine 300 mg tablet 300 mg PO BID cholecalciferol (vitamin D3) 50 mcg (2,000 unit) tablet 50 mcg PO DAILY cyanocobalamin (vitamin B-12) [Vitamin B-12] 1,000 mcg tablet 1,000 mcg PO DAILY omega-3 fatty acids-fish oil [Fish Oil] 360-1,200 mg capsule 2 cap PO DAILY ascorbic acid (vitamin C) 1,000 mg tablet 1,000 mg PO BID Interventions: Koppel-Suicide Risk Severity Scale Last Done: 06/05/23 19:56
[2023-06-05 20:37] LABS: Ethanol < 10 mg/dL
[2023-06-05 20:38] LABS: Anion Gap 14 (12-20); Blood Urea Nitrogen 10 mg/dL (9-16); Calcium 10.3 mg/dL (8.4-10.2); Carbon Dioxide 26 mmol/L (22-29); Chloride 106 mmol/L (96-108); Estimated Glomerular Filt Rate > 60; Glucose Random 103 mg/dL (60-115); Potassium 3.5 mmol/L (3.3-5.1); Sodium 142 mmol/L (135-145)
[2023-06-05 20:40] LABS: COVID-19 Test Negative (Negative); IDNOW Serial# 9DB6401D
[2023-06-05 22:00] VITALS: RESP 16
--- NOTE | 2023-06-05 22:18 | PC.NURSE ---
Late entry: patient brought from waiting room to the main, manic behavior, pressured speech, pacing and unable to self soothe. This RN spoke with patient to attempt to re-direct, patient asking for shower. Patient in shower, able to calm down a bit, walking around pod, eating. Pt got his blood drawn and spoke with RA Canchola who he then asked to get IM injections to calm down. PRANAV Jacques ordered IM Benadryl, Ativan and Haldol which he took willingly without issue in the right thigh. Once again, pt requested a shower. Before this RN could give him an answer, he went to the bathroom, turned on the shower and began banging against the wall. When this RN and MO Landeros attempted to make contact with patient, patient would not answer. Security was called to assist with making contact with patient. Pt exited shower with security at side, changed back into hospital gown and was able to calm himself for a few minutes Pt then became angry and walked over to the pod doors, staring out into the hallway, attempting to push on the doors to exit. This RN coached patient back to bed and was able to get him to lay down. Pt is now sleeping, RR even and unlabored, no apparent distress. Plan for CARE team to see patient
[2023-06-06 01:49] VITALS: BP 147/85; PULSE 83; RESP 18; TEMP 36.4; O2SAT 98
[2023-06-06] MEDS: LORazepam 1 MG TABLET 2 MG PO ×3 (03:42→20:43)
[2023-06-06] MEDS: chlorproMAZINE HCl 100 MG TABLET 200 MG PO (04:03)
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
--- NOTE | 2023-06-06 05:08 | PC.NURSE ---
Patient using fidget toys at this time with ED PCT Yary. Calm & cooperative at this time.
--- NOTE | 2023-06-06 06:09 | PC.NURSE ---
Patient is sleeping, respirations even & unlabored. Snoring. Patient is sleeping on the floor of his room, with bedsheet. Patient put the mattress perpendicular to the base to make a fort prior to falling asleep. Since the beginning of this RN's shift (3am today), he has taken 2 warm showers. Patient is requesting to shower approximately every 1-2 hours.
--- NOTE | 2023-06-06 06:20 | PC.NURSE ---
Patient is awake, walked to bathroom independently. Appears very tired.
--- NOTE | 2023-06-06 06:50 | PC.NURSE ---
Patient is awake, occasionally ambulating around the Pod. Calm & cooperative at this time. Offered but refused additional dose of Thorazine 200mg, ordered by Dr. Linares. Pt states I don't want to sleep .
--- NOTE | 2023-06-06 08:14 | PC.NURSE ---
Dr. Vicente at bedside speaking with patient at this time. Patient was requesting to speak with CARE Team, however, CARE Team staff member is unavailable at this time.
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
[2023-06-06] MEDS: diphenhydrAMINE HCL 50 MG/ML VIAL IM (10:30)
--- NOTE | 2023-06-06 10:34 | PC.NURSE ---
Patient demanded to speak with the doctor, reporting my mouth is all swollen and stuff and I'm seeing double. I think it's the Thorazine they gave me . Thorazine 200mg given at 4:03am today by this RN. When this RN arrived to shift at 3am, patient requested and was given Ativan 2mg PO. Then Gino requested Zyprexa orally, then approached this RN and previous RN requesting Thorazine. This RN noted that he has had past adverse reactions to Thorazine in the past (per EMAR/history), and patient repeatedly requested Thorazine (see previous nursing notes). Faves message sent to Dr. Linares at 3:53am with patient's change of request from Zyprexa to Thorazine, which Dr. Linares ordered. Gino insisted that he's not allergic to Thorazine, he just doesn't like it because he gets sleepy and he doesn't want to sleep. PRANAV Horton & Magan Dempsey MD arrived to bedside, security also present. Gino noted to be increasing in agitation occasionally slapping the wall or furniture with his hands. Gino asked for the doctor to give him something for the allergic reaction to Thorazine. This RN reminded the patient that at 4am, he did refuse the Zyprexa to this RN & Dr. Linares and asked for Thorazine instead, which was administered at 4:03am, per Gino's request. Gino stated to this RN she doesn't know what she's talking about! I never refuse anything! I take everything! . Airway is patent. Gino is drowsy/lethargic, but able to speak in full sentences, ambulating around the pod. Intermittently sleeping and/or showering since Thorazine administration. Offered & accepted IM Benadryl 50mg for Thorazine reaction. Administered IM Benadryl to right deltoid. Patient was calm/cooperative for administration. Requested and given turkey sandwich.
--- NOTE | 2023-06-06 11:37 | PC.NURSE ---
Assumed care of patient at 1100, per previous nurse patient had eventful night with multiple aggressive outbursts. Pt is sleeping at this time in chair in the hallway. Respirations even and unlabored, skin pwd, no apparent distress. Pt is on Sec. 12 for manic behavior and previously endorsed SI/HI thoughts.
--- NOTE | 2023-06-06 12:10 | PC.NURSE ---
pt requesting to speak with someone from CARE team about his plan, this RN attempted to update patient on plan but he politely continued to ask for CARE team. Yary, CARE team notified via tiger text. Han also requested to speak with security for comfort because the bad thoughts are coming back and security helps . Ector from security at patient's side
--- NOTE | 2023-06-06 14:06 | PC.NURSE ---
Pt has been wandering around BH pod, consistently asking for food, blankets and other items. Pt is re-directable, but is frequently requesting to speak with members of security and CARE team
[2023-06-06 14:07] VITALS: RESP 16
[2023-06-06 15:21] VITALS: BP 141/67; PULSE 79; RESP 20; TEMP 36.2; O2SAT 99
--- NOTE | 2023-06-06 16:08 | PC.NURSE ---
Pt occasionally having bursts of energy, running around the BH pod. Able to be verbally redirected to a different task. pt occasionally having pressured speech, but willing to participate in conversation. Pt is currently sitting under fort in bedroom. Respirations even and unlabored, no apparent distress at this time
--- NOTE | 2023-06-06 16:46 | PC.NURSE ---
pt requesting Ativan again for agitation, MD culver
--- NOTE | 2023-06-06 16:55 | PC.NURSE ---
pt requesting to hold off on Ativan until after dinner so he doesn't fall asleep before dinner comes
[2023-06-06] MEDS: LORazepam 1 MG TABLET PO (17:13)
--- NOTE | 2023-06-06 17:29 | PC.NURSE ---
visitor with Han at this time, calm and cooperative. Appearing to enjoy visitors presence
--- NOTE | 2023-06-06 17:36 | PC.NURSE ---
visitor visit went well, patient was provided with different ear buds with herbarium curator, currently ambulating around pod, calm and cooperative in much better mood. engaging in conversation offering no complaints to this RN
--- NOTE | 2023-06-06 18:32 | PC.NURSE ---
Pt sleeping under mattress fort at this time. Snoring, RR even and unlabored, no apparent distress
--- NOTE | 2023-06-06 18:50 | MHC.CARE ---
Tw conducted a statewide a statewide bed search for this pt. Referral was sent to [facility] and [place]. Bed search is exhausted and will continue tomorrow (06/07)
--- NOTE | 2023-06-06 19:16 | PC.NURSE ---
patient standing in milieu shirtless stares at persons moving about the pod, now adjourns to shower...asked for med rec to be done. patient appears less pressed speech than in days past.
[2023-06-06] MEDS: OXcarbazepine 300 MG TABLET PO (20:19)
[2023-06-06] MEDS: lamoTRIgine 100 MG TABLET PO (20:19)
[2023-06-06] MEDS: Lithium Carbonate 300 MG CAPSULE 900 MG PO (20:19)
[2023-06-06] MEDS: OLANZapine ODT 10 MG TAB.RAPDIS TRANSLINGU (20:43)
[2023-06-06] MEDS: Ascorbic Acid 500 MG TABLET 1000 MG PO (21:09)
[2023-06-06] MEDS: diphenhydrAMINE HCl 12.5 MG/5 ML LIQUID 50 MG PO (21:09)
[2023-06-07] MEDS: LORazepam 2 MG/ML VIAL IM ×2 (01:11→10:34)
[2023-06-07] MEDS: OLANZapine 10 MG VIAL 20 MG IM (01:11)
--- NOTE | 2023-06-07 01:51 | PC.NURSE ---
client enters shower despite staff direction to comply and not enter d/t recent med administration
--- NOTE | 2023-06-07 02:16 | PC.NURSE ---
patient expresses loud dissatisfaction at medication producing desired effects.
--- NOTE | 2023-06-07 03:08 | PC.NURSE ---
patient struggling to stay awake seemingly, loudly complains about the quality of food this bread sucks jose luis, i dont want any more medicine why cant i wear my sweatshirt
--- NOTE | 2023-06-07 05:26 | PC.NURSE ---
patient continues to strugge against medication, exclain loudly regarding cool temperature despite the fact he has been asking for perhaps tens to 15 warmed blankets, he has been attended to by staff perhaps every ten minutes for the last 8 hours. (excluding brief naps)
[2023-06-07] MEDS: Cyanocobalamin (Vitamin B-12) 1,000 MCG TABLET 1000 MCG PO (08:02)
[2023-06-07] MEDS: LORazepam 1 MG TABLET 2 MG PO ×2 (08:03→19:41)
[2023-06-07] MEDS: Cholecalciferol (Vitamin D3) 25 MCG TABLET 50 MCG PO (08:03)
[2023-06-07] MEDS: Ascorbic Acid 500 MG TABLET 1000 MG PO ×2 (08:03→20:08)
[2023-06-07] MEDS: OXcarbazepine 300 MG TABLET PO ×2 (08:03→20:08)
[2023-06-07] MEDS: diphenhydrAMINE HCL 50 MG/ML VIAL 25 MG IM (10:34)
[2023-06-07] MEDS: Haloperidol Lactate 5 MG/ML VIAL IM (10:34)
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
[2023-06-07 12:39] VITALS: RESP 18
--- NOTE | 2023-06-07 13:55 | MHC.CARE ---
RAD Team conducted a statewide bedsearch, referral sent to [facility], [place], [place], [facility] and [facility], [facility], [place], [facility], [place], [facility], [facility], [facility], [place], [facility], [facility], [place], [facility], [facility], [place], [facility], [place], [place], [facility], [place], [facility], [facility], [facility], [facility], [place], [place], [facility], [facility], [facility], [place], [place], [place], [place], [facility], [place], [facility], [place], [facility], [place], [place], [place], [facility], [facility]. RAD Team to f/u with facilities and continue bedsearch tomorrow (06/08) if deemed necessary.
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
--- NOTE | 2023-06-07 14:56 | MHC.CARE ---
Section 12 signed by Mariah Carranza NP, patient remains inpatient psych LOC.
[2023-06-07 15:55] VITALS: BP 148/77; PULSE 83; TEMP 36.3; O2SAT 100
--- NOTE | 2023-06-07 17:58 | PC.NURSE ---
Patient pacing halls, intermittently resting in room. Appetite good. Patient able to be redirected and reassured. Patient asked to meet with Care team multiple times, care team aware.
[2023-06-07] MEDS: Lithium Carbonate 300 MG CAPSULE 900 MG PO (20:07)
[2023-06-07] MEDS: HaloperidoL 5 MG TABLET PO (20:07)
[2023-06-07] MEDS: lamoTRIgine 100 MG TABLET PO (20:08)
[2023-06-07] MEDS: OLANZapine 10 MG VIAL 15 MG IM (21:02)
--- NOTE | 2023-06-07 22:45 | PC.NURSE ---
patient only slept half hour so far after meidcations
--- NOTE | 2023-06-07 23:04 | PC.NURSE ---
asked for personal person to talk to, staff talked to him about 3-5 minutes. patient then asked for second hot cocoa, which was given
[2023-06-07] MEDS: diphenhydrAMINE HCL 25 MG CAPSULE 50 MG PO (23:49)
[2023-06-08] VITALS (9 sets, daily range): BP systolic 144–157; BP diastolic 56–97; PULSE 96–118; RESP 16–22; TEMP 36.3–36.6; O2SAT 96–99
[2023-06-08] MEDS: Ziprasidone Mesylate 20 MG VIAL IM (00:20)
[2023-06-08] MEDS: LORazepam 2 MG/ML VIAL IM ×2 (00:20→22:43)
--- NOTE | 2023-06-08 00:32 | PC.NURSE ---
patient was asked/redirected to go try and lay down im not tired went into his room after being instructed to not run went into his room and beagn to press chair over his head which is how client had injured his nose earlier today. patient resistant to follow directions, asked to take meds and declined, t/w pursued IM after client changed mind and said he would nbot take po med he had agreed to, order obtained and given now patient once again requests and eats all sweets we will duff available to him, sandwiches, puddings, jello, cocoa, chips...
--- NOTE | 2023-06-08 01:54 | PC.NURSE ---
client asks to shower client directed to not shower client went in and showered without our blessing/consent. client asks for towels becomes impatient states fuck you and your towels, security called after client slammed door which disurupts milieu.
--- NOTE | 2023-06-08 02:15 | PC.NURSE ---
was in bed for ten minutes after security support now back in chair
--- NOTE | 2023-06-08 02:15 | PC.NURSE ---
patient getsback in bed
--- NOTE | 2023-06-08 02:36 | PC.NURSE ---
client continues to come in and out of room and sit in chair in group area.
--- NOTE | 2023-06-08 02:39 | PC.NURSE ---
patient asks t/w to call security and havethem come talk to him, t/w completred this task.
--- NOTE | 2023-06-08 02:44 | PC.NURSE ---
client back in bed after talking to security
--- NOTE | 2023-06-08 02:51 | PC.NURSE ---
client pacing unit
--- NOTE | 2023-06-08 03:51 | PC.NURSE ---
client continues to sit in communal area and periodically convers w staff. patient maintains safe behavior patient maintained on sticker chart type plan t encourage complaince with disruptive behaviors.
--- NOTE | 2023-06-08 04:24 | PC.NURSE ---
for last half hour patient has been slumbering sitting up in chair in front of RN station
[2023-06-08] MEDS: diphenhydrAMINE HCL 25 MG CAPSULE 50 MG PO (08:18)
[2023-06-08] MEDS: HaloperidoL 5 MG TABLET PO ×3 (08:19→20:33)
[2023-06-08] MEDS: OXcarbazepine 300 MG TABLET PO ×2 (08:19→20:33)
[2023-06-08] MEDS: LORazepam 1 MG TABLET 2 MG PO ×3 (08:19→19:15)
[2023-06-08] MEDS: Cholecalciferol (Vitamin D3) 25 MCG TABLET 50 MCG PO (08:19)
[2023-06-08] MEDS: OLANZapine ODT 10 MG TAB.RAPDIS TRANSLINGU ×2 (09:51→18:19)
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
--- NOTE | 2023-06-08 14:22 | PC.NURSE ---
Client agitated when he woke up this AM. Observed running and pacing in the milieu. Han was turning his mattress sideways against his wall in his room and was observed punching it. Han adherent with scheduled medications and agreeable to take PRN's. Han appears much less agitated as the day progresses. Calmer affect and able to engage with staff. Han utilizing music as coping skill and appetite is good. Multiple snacks eaten throughout the shift as well as snacks. Imaging done to facial bones.
--- NOTE | 2023-06-08 15:07 | PC.NURSE ---
Han was adherent with his 3pm Haldol 5mg and req/rec PRN Lorazepam with it. Asked for security to come visit him and was pleasant in his exchange with them. Had a visit with his massage therapist which went well and spoke with his parents on the phone.
--- NOTE | 2023-06-08 15:15 | MHC.CARE ---
RAD Team conducted statedwide bedsearch, unfortunately no beds were available statewide. Pt is on the waitlist for [facility], RAD Team to f/u tomorrow (06/09)
--- NOTE | 2023-06-08 18:47 | MHC.CARE ---
CARE Team called [facility], spoke with Tricia Choi informed her of the barriers of placement with this pt and asked for assistance with finding placement. ROD will call back tomorrow (06/09) to follow up tomorrow
[2023-06-08] MEDS: Lithium Carbonate 300 MG CAPSULE 900 MG PO (20:31)
[2023-06-08] MEDS: Ibuprofen 600 MG TABLET PO (20:33)
[2023-06-08] MEDS: Ascorbic Acid 500 MG TABLET 1000 MG PO (20:33)
[2023-06-08] MEDS: lamoTRIgine 100 MG TABLET PO (20:33)
[2023-06-08] MEDS: Haloperidol Lactate 5 MG/ML VIAL IM (22:43)
[2023-06-08] MEDS: diphenhydrAMINE HCL 50 MG/ML VIAL IM (22:43)
--- NOTE | 2023-06-08 22:48 | PC.NURSE ---
Pt became increasingly aggressive and combative. Flipped dining table upside down and punched the tong. Pt then grabbed the chair over his head in threaten to throw it at the door. MD and security called to the bedside. Pt then walked over to another patient bedside and that patient had to be removed for safety. Pt medically restrained for safety as ordered. VSS. Pt returned to the bedside and is currently sitting up on a chair eating pudding. Monitoring is ongoing.
--- NOTE | 2023-06-08 23:48 | PC.NURSE ---
Pt walking around the pod. Pacing, restless attempting to open the doors. Pt is making threats to have security at the bedside and is flipping the table again. Declining to return to the bedside. Charge and MD made aware.
--- NOTE | 2023-06-08 23:48 | MHC.EDTECH ---
patient threatening to kick down door if we don't call security
--- NOTE | 2023-06-08 23:49 | MHC.EDTECH ---
patient is throwing the table in the common area around.Security has been called. Patient now yelling at security. screaming to wake up the whole unit. Screaming to get more food. Patient has been given multiple sandwiches, crackers,puddings.
--- NOTE | 2023-06-09 00:06 | PC.NURSE ---
Pt returned to the bedside with the assistance of security. Laying down, lights dimmed and noise decreased to allow pt to rest. No distress noted at this time.
[2023-06-09 00:13] VITALS: RESP 16
--- NOTE | 2023-06-09 00:45 | PC.NURSE ---
Pt up and ambulating. Came to the nurse's station and apologized for the previous behavior. Sitting in front of the nurse's station. Calm and cooperative at this time. Socks provided as requested.
--- NOTE | 2023-06-09 01:02 | PC.NURSE ---
Pts headphones put to charge as requested. Pt reports having another pair of headphones inside his personal belongings. Second pair of head phones obtained and provided to pt. Pt currently sitting in front of the nurse's station listening to music.
--- NOTE | 2023-06-09 01:10 | PC.NURSE ---
Food and drink provided as requested. Pt returned to the bedside. Writing of pts name noted on the wall of pts room. Nurse Avril made aware.
--- NOTE | 2023-06-09 03:11 | PC.NURSE ---
Pt is calm and cooperative ambulating freely around the pod. Cell phone provided so that pt is able to choose a playlist. No apparent distress noted at this time.
[2023-06-09 06:22] VITALS: BP 143/78; PULSE 92; RESP 18; TEMP 36.6; O2SAT 98
[2023-06-09] MEDS: Cholecalciferol (Vitamin D3) 25 MCG TABLET 50 MCG PO (07:58)
[2023-06-09] MEDS: Ascorbic Acid 500 MG TABLET 1000 MG PO (07:58)
[2023-06-09] MEDS: HaloperidoL 5 MG TABLET PO (07:58)
[2023-06-09] MEDS: Cyanocobalamin (Vitamin B-12) 1,000 MCG TABLET 1000 MCG PO (07:59)
[2023-06-09] MEDS: OXcarbazepine 300 MG TABLET PO (07:59)
[2023-06-09] MEDS: LORazepam 1 MG TABLET 2 MG PO (08:35)
[2023-06-09] MEDS: Ziprasidone Mesylate 20 MG VIAL IM (09:25)
[2023-06-09] MEDS: Midazolam HCl/PF 2 MG/2 ML VIAL 4 MG IM ×2 (09:26→15:05)
[2023-06-09 09:55] VITALS: BP 144/76; PULSE 95; RESP 16; O2SAT 97
[2023-06-09 10:10] VITALS: BP 168/80; PULSE 87; TEMP 36.4; O2SAT 99
[2023-06-09 10:25] VITALS: BP 168/78; PULSE 103; TEMP 36.4; O2SAT 100
--- NOTE | 2023-06-09 11:13 | MHC.CARE ---
Pt accepted to [facility] Accepting Doctor- Demarcus Reyes Address- [address] [place] [address] Time- SEEMA
[2023-06-09] MEDS: Midazolam HCl/PF 2 MG/2 ML VIAL 6 MG IM (12:27)
[2023-06-09] MEDS: diphenhydrAMINE HCL 50 MG/ML VIAL IM (12:28)
[2023-06-09] MEDS: OLANZapine 10 MG VIAL IM (12:29)
--- NOTE | 2023-06-09 14:02 | MHC.CARE ---
Contreras from [facility] called inquiring about pt's bedsearch. He was informed that pt was placed
--- NOTE | 2023-06-09 14:11 | PC.NURSE ---
Pt continues to verbally escalate. Yelling I am not going to [facility], I [facility]. There is going to be a person here before I leave . Pt verbally re-directed, took a shower. appears slightly more calm, continues to be guarding. Pts mother called this rn, yelling at this RN that pt cannot go to [facility] because she cannot visit him there, call transferred to CARE team
[2023-06-09 14:15] VITALS: RESP 16
[2023-06-09] MEDS: OLANZapine 10 MG VIAL 20 MG IM (15:09)
--- NOTE | 2023-06-09 15:09 | PC.NURSE ---
Re: Zyprexa. Full dose of 20 mg not administered due to emergent situation. 10mg drawn up and administered. other 10mg vial returned. Beatrice, pharmacy aware
--- NOTE | 2023-06-09 15:10 | PC.NURSE ---
Pt began to verbally escalate once again. Filled table in common area and screaming that he will not be going to a different hospital. Pt yelling I am going to go to retirement, I am going to kill someone and go to retirement before I go to another hospital . Panic button pressed, security present, Jesika, CARE team and Dr. Linares also present. Original order for MD Orlando at bedside talking with patient about it. Pt yelling I am allergic to Thorazine, I don't fucking want it, I will kill someone before I take that . Dr. Linares switched medications verbal order for 4mg Versed and 20mg Zyprexa IM. Zach RN and this RN administered IM medications to bilateral vastus lateralis. only 10mg of zyprexa administered. Other 10mg returned
--- NOTE | 2023-06-09 16:04 | PC.NURSE ---
Pt able to express emotions in calm tone. Verbalizes understanding of plan of care for transport to [facility]
--- NOTE | 2023-06-09 17:09 | MHC.CARE ---
Late Entry: CARE Team received a call from pt's mother, Kisha, who is upset about pt being placed at [facility]. CARE Team provides general information about the process of bedsearch and placement to mother. Mother then comes to the ED to visit the pt. Visit went well and pt safely discharged from the ED.
== END 2023-06-09 16:38 ==
PROVIDERS: Internal Medicine; Emergency Provider Emergency Medicine; PCP Physician Assistant
DX: F23 Brief psychotic disorder (principal); F25.0 Schizoaffective disorder, bipolar type; R45.1 Restlessness and agitation; R45.6 Violent behavior; Z11.52 Encounter for screening for COVID-19; F30.9 Manic episode, unspecified; F41.9 Anxiety disorder, unspecified; Z79.899 Other long term (current) drug therapy; S02.2XXA Fracture of nasal bones, initial encounter for closed fracture; Y29.XXXA Contact with blunt object, undetermined intent, initial encounter; Y93.89 Activity, other specified; Y92.230 Patient room in hospital as the place of occurrence of the external cause; Y99.9 Unspecified external cause status
CPT/HCPCS: 36415; 70160; 80048; 80307; 81001; 81003; 85025; 87635; 96372; 99285; J1200; J1630; J2060; J2250; J2359; J3486; S9485

== ENCOUNTER → 2023-06-05 20:26 | Outpatient (BNV) | payer OTHER, SELFPAY | PROVIDERS: Emergency Provider Emergency Medicine Emergency Medical Services; PCP Physician Assistant; Visit Provider Psychiatry & Neurology Psychiatry | DX: F25.0 Schizoaffective disorder, bipolar type (principal) | CPT/HCPCS: 99282; 99285 ==

== ENCOUNTER 2023-06-22 22:48 | Emergency (ER) | payer OTHER, SELFPAY ==
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
[2023-06-22] MEDS: LORazepam 1 MG TABLET 2 MG PO (23:04)
[2023-06-22] MEDS: OLANZapine ODT 10 MG TAB.RAPDIS TRANSLINGU (23:04)
[2023-06-22] MEDS: diphenhydrAMINE HCL 25 MG CAPSULE 50 MG PO (23:05)
[2023-06-22 23:06] VITALS: BP 143/92; PULSE 108; RESP 18; TEMP 37.1; O2SAT 98; BMI 33.9
[2023-06-22 23:39] LABS: MANUAL DIFF FLAG NO
[2023-06-22 23:42] LABS: Basophils Absolute Auto 0.1 X10*3/uL (0.0-0.2); Basophils Percent Auto 0.5 % (0-2); Eosinophils Absolute Auto 0.1 X10*3/uL (0.0-0.4); Eosinophils Percent Auto 0.9 % (0-4); Hematocrit 43.9 % (42.0-52.0); Hemoglobin 14.6 g/dl (14.0-18.0); Imm Gran Abs Auto 0.04 X10*3/uL (0.00-0.03); Imm Gran Pct Auto 0.4 % (0.0-0.4); Lymphocytes Absolute Auto 2.3 X10*3/uL (1.2-4.9); Lymphocytes Percent Auto 23.5 % (20-40); Mean Corpuscular HGB Conc 33.3 g/dl (31.0-36.0); Mean Corpuscular Hemoglobin 28.5 pg (27.0-33.0); Mean Corpuscular Volume 85.6 fL (80.0-98.0); Monocytes Percent Auto 10.3 % (2-11); Neutrophils Absolute Auto 6.2 x10*3/uL (2.0-8.3); Neutrophils Percent Auto 64.4 % (45-73); Platelet Count 265 X10*3/uL (160-400); Red Blood Count 5.13 X10*6/uL (4.60-5.80); Red Cell Distribution Width 13.2 % (11.0-16.0); White Blood Count 9.6 X10*3/uL (4.8-10.8)
[2023-06-22 23:52] LABS: Lithium < 0.10 mmol/L (0.60-1.20)
[2023-06-22 23:53] LABS: Valproate 31.3 mcg/mL (50.0-100.0)
[2023-06-22 23:55] LABS: Amphetamine Screen Urine Not Detected (Not Detect); Barbiturates, Urine Not Detected (Not Detect); Benzodiazepines Screen Urine Not Detected (Not Detect); Cannabinoid Screen Urine Not Detected (Not Detect); Cocaine Screen Urine Not Detected (Not Detect); Fentanyl, urine Not Detected (Not Detect); Opiate Screen Urine Not Detected (Not Detect); Phencyclidine Screen Urine Not Detected (Not Detect)
[2023-06-22 23:56] LABS: COVID-19 Test Negative (Negative); IDNOW Serial# 152EDE1D
[2023-06-23 00:02] VITALS: RESP 18
[2023-06-23 00:02] LABS: Alanine Aminotransferase 123 U/L (0-40); Albumin Level 4.3 g/dL (3.5-5.0); Alkaline Phosphatase 66 U/L (39-117); Anion Gap 14 (12-20); Aspartate Amino Transferase 64 U/L (5-37); Bilirubin Direct < 0.2 mg/dL (0.0-0.5); Bilirubin Total 0.2 mg/dL (0.0-1.0); Blood Urea Nitrogen 14 mg/dL (9-16); Calcium 9.4 mg/dL (8.4-10.2); Carbon Dioxide 22 mmol/L (22-29); Chloride 108 mmol/L (96-108); Creatinine Clr Calc Pharmacy 190.6; Estimated Glomerular Filt Rate > 60; Ethanol < 10 mg/dL; Glucose Random 134 mg/dL (60-115); Potassium 3.5 mmol/L (3.3-5.1); Sodium 140 mmol/L (135-145); Total Protein 7.2 g/dL (6.5-8.0)
== END 2023-06-23 01:30 | disposition home or self-care (01) ==
LOC: HO.ED 06-23 00:52
PROVIDERS: Emergency Provider Emergency Medicine; PCP Physician Assistant
DX: F25.0 Schizoaffective disorder, bipolar type (principal); R45.851 Suicidal ideations; R45.850 Homicidal ideations; R45.6 Violent behavior; F30.9 Manic episode, unspecified; Z79.899 Other long term (current) drug therapy; Z11.52 Encounter for screening for COVID-19
CPT/HCPCS: 36415; 80048; 80076; 80164; 80178; 80307; 83735; 85025; 87635; 99284; 99285; S9485

== ENCOUNTER 2023-06-24 09:55 | Emergency (ER) | payer OTHER, SELFPAY ==
[2023-06-24 10:17] VITALS: BP 162/91; PULSE 100; RESP 20; TEMP 36.6; O2SAT 98; BMI 25.1
[2023-06-24 10:28] VITALS: BP 135/78; PULSE 98; O2SAT 98
[2023-06-24 10:55] LABS: Amphetamine Screen Urine Not Detected (Not Detect); Barbiturates, Urine Not Detected (Not Detect); Benzodiazepines Screen Urine Not Detected (Not Detect); Cannabinoid Screen Urine Not Detected (Not Detect); Cocaine Screen Urine Not Detected (Not Detect); Fentanyl, urine Not Detected (Not Detect); Opiate Screen Urine Not Detected (Not Detect); Phencyclidine Screen Urine Not Detected (Not Detect)
[2023-06-24] MEDS: Haloperidol Lactate 5 MG/ML VIAL 10 MG IM (11:28)
[2023-06-24] MEDS: LORazepam 1 MG TABLET 2 MG PO (11:28)
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
--- NOTE | 2023-06-24 11:56 | ED.GENADULT ---
HPI - General Adult General Chief complaint: Behavioral Concerns Stated complaint: VISUAL HALLUCINATIONS,H/O BIPOLAR & GIULIANA PER EMS Time Seen by Provider: 06/24/23 12:01 Source: patient and RN notes reviewed Mode of arrival: ambulatory Limitations: no limitations History of Present Illness HPI narrative: This is a 23-year-old male, with a past medical history of schizoaffective bipolar type disorder, presenting to the emergency department with complaints of visual hallucinations that the cartel ticking children, and saving them with a sword. Patient states that he has having a manic episode. He states that he witnessed a child almost get abducted by the cartel this morning. He states that initially upon his arrival in the emergency room he had increased anxiety and agitation which has since improved since receiving medications. He states that he has been taking his medications as directed, denies any missed dosages. He denies any drug or alcohol use. Denies any suicidal or homicidal ideations. Denies any visual or auditory hallucinations. Denies any fevers, chills, chest pain, shortness of breath, abdominal pain, nausea, vomiting or diarrhea. No other complaints or concerns at this time. MD complaint: Visual hallucinations Relieving factors: none Exacerbating factors: none Associated symptoms: denies other symptoms Treatments prior to arrival: none Related Data Home Medications Medication Instructions Recorded Confirmed ascorbic acid (vitamin C) 1,000 mg 1,000 mg PO BID 07/20/22 06/24/23 tablet cholecalciferol (vitamin D3) 50 50 mcg PO DAILY 07/20/22 06/24/23 mcg (2,000 unit) tablet cyanocobalamin (vitamin B-12) 1,000 mcg PO DAILY 07/20/22 06/24/23 1,000 mcg tablet (Vitamin B-12) omega-3 fatty acids-fish oil 360 2 cap PO DAILY 07/20/22 06/24/23 mg-1,200 mg capsule (Fish Oil) olanzapine 10 mg tablet 10 mg PO BID Psychosis 06/24/23 06/25/23 divalproex 500 mg tablet,extended 1,000 mg PO QPM 06/25/23 06/25/23 release 24 hr (Depakote ER) divalproex 500 mg tablet,extended 500 mg PO AC 06/25/23 06/25/23 release 24 hr (Depakote ER) lamotrigine 200 mg tablet 200 mg PO BEDTIME 06/25/23 06/25/23 lithium carbonate 300 mg tablet 300 mg PO DAILY 06/25/23 06/25/23 lorazepam 1 mg PO BEDTIME PRN Anxiety 06/25/23 06/25/23 Allergies Allergy/AdvReac Type Severity Reaction Status Date / Time fluoxetine AdvReac Severe giuliana Verified 06/05/23 20:17 Review of Systems Review of Systems: Yes all other systems are reviewed and are negative Constitutional: Constitutional: Reports as per [facility] Past Medical History Medical History (Updated 06/24/23 @ 20:11 by PRANAV French) Schizoaffective disorder, bipolar type Fibroepithelial polyp No known health problems Bipolar 1 disorder with moderate giuliana Depression Anxiety Surgical History S/P colonoscopy H/O endoscopy Family History Family History Mother Alcohol abuse Mental problem Father Alcohol abuse Mental problem Melanoma Social History Social History Household Members: Family Household Members Other:: mom and brother Housing: House Do you presently have visiting nurse or other home services: No Alcohol intake: current Alcohol intake frequency: holidays/special occasions only Alcohol type: wine Comment: none Patient Tobacco Use Status: Never used Tobacco Smoked in Last 30 Days: No e-Cigarette/Vaping Use: Never Used Second Hand Smoke Exposure: Yes ( sometimes but not too often ) Use of substances other than those prescribed or required for medical reasons: No Advance Directives: No Advance Directives Information Provided: No Healthcare Proxy: No Guardian: No service: No Current occupational status: disabled Current occupation: Student - Online Sexual orientation: Straight/Heterosexual Cognitive needs: No Hearing needs: No Vision needs: No Physical Exam ED Vital Signs: Vital Signs - 24 hr 06/24/23 20:36 06/25/23 04:59 Temperature 98 F 97.8 F Pulse Rate 98 93 Respiratory Rate 18 18 Blood Pressure 158/71 H 143/84 H Pulse Oximetry 99 100 Oxygen Delivery Method Room Air Room Air BMI result Body Mass Index 25.1 Const General: cooperative, comfortable and no acute distress Orientation/consciousness: patient oriented x3 Limitations: no limitations HENMT Head: Yes normal to inspection, Yes normocephalic and Yes atraumatic Ears: hearing grossly normal bilaterally General nose exam: Normal external nose present Face and sinus: Yes normal facial exam Mouth: Normal oral and palatal mucosa present, oropharynx normal and moist mucous membranes Throat: Yes posterior oropharynx normal Eyes General: appearance normal, both eyes and all related structures Eyelids: Yes eyelids normal Conjunctivae: conjunctivae normal Sclerae: sclerae normal Pupils: Equal, round and reactive pupils present EOM: EOMs intact bilaterally Neck Neck: Yes normal visual inspection, Yes full ROM and Yes no lymphadenopathy Lymphatic: no lymphadenopathy noted Chest Chest palpation & inspection: normal inspection of the chest Resp Effort & Inspection: normal respiratory effort and able to speak in complete sentences Auscultation: clear to auscultation bilaterally, no crackles, no rales, no rhonchi and no wheezes Cardio Rate: regular rate Rhythm: regular rhythm Heart sounds: S1 normal heart sound present and S2 normal heart sound present GI Other: Abdomen is soft, nontender, nondistended Inspection: Yes normal to inspection Skin General skin exam: no rashes or lesions noted Trauma: no lacerations or abrasions Wounds: no wounds Neuro General: patient oriented x3 and moves all extremities Cranial nerves: Yes Equal, round and reactive pupils present Extrem General: Yes normal to inspection Right upper extremity: normal to inspection Left upper extremity: normal to inspection Right lower extremity: normal to inspection Left lower extremity: normal to inspection Psych Appearance: well kempt Speech and movement: Pressured speech present Affect: Anxious affect present Attitude: Guarded attititude/behavior present and Avoids eye contact (attititude/behavior) Thought process: Racing thoughts present Thought content: Paranoid delusions present Insight: Limited insight present (Psych) Judgement: Limited judgement present (Psych) Course Reevaluation(s) Reevaluation #1: Patient is still with increased agitation, playing and sewage. Escalating without any response to deescalation. Will medicate again with Benadryl 50 mg IM Time: 12:01 Reevaluation #2: Patient much calmer, I was able to have a conversation with him, had possibly witnessed a child adduction today, unsure whether or not this was a delusion. Patient is calm and cooperative. Answering all questions appropriately. Labs unremarkable. He is medically cleared, and will await care team consult disposition. Physician observation initiated Time: 15:21 Medications Administered Generic Name Dose Route Start Last Admin Trade Name Oriq PRN Reason Stop Dose Admin Ascorbic Acid 1,000 mg 06/25/23 09:00 06/25/23 07:26 Ascorbic Acid 500 Mg Tablet PO Not Given BID YANI Cyanocobalamin 1,000 mcg 06/25/23 09:00 06/25/23 07:26 Cyanocobalamin (Vitamin B-12) 1,000 Mcg Tablet PO Not Given DAILY YANI Olanzapine 10 mg 06/24/23 22:00 06/24/23 22:13 Olanzapine 10 Mg Tablet PO Not Given BEDTIME YANI Oxcarbazepine 300 mg 06/25/23 09:00 06/25/23 07:32 Oxcarbazepine 300 Mg Tablet PO Not Given BID YANI Vitamin D 50 mcg 06/25/23 09:00 06/25/23 07:26 Cholecalciferol (Vitamin D3) 25 Mcg Tablet PO Not Given DAILY YANI Discontinued Medications Generic Name Dose Route Start Last Admin Trade Name Oriq PRN Reason Stop Dose Admin Diphenhydramine HCl 50 mg 06/24/23 11:54 06/24/23 12:03 Diphenhydramine Hcl 50 Mg/Ml Vial IM 06/24/23 11:55 50 mg ONCE ONE Administration Divalproex Sodium 500 mg 06/25/23 12:15 06/25/23 12:35 Divalproex Sodium Er 500 Mg Tab.Er.24h PO 06/25/23 12:16 500 mg ONCE ONE Administration Haloperidol Lactate 10 mg 06/24/23 11:23 06/24/23 11:28 Haloperidol Lactate 5 Mg/Ml Vial IM 06/24/23 11:24 10 mg STAT STA Administration Haloperidol Lactate 10 mg 06/24/23 12:00 06/24/23 13:04 Haloperidol Lactate 5 Mg/Ml Vial IM 06/24/23 12:01 Not Given STAT STA [place] Carbonate 300 mg 06/25/23 12:00 06/25/23 12:01 [place] Carbonate 300 Mg Capsule PO Not Given DAILY@1200 YANI Lorazepam 2 mg 06/24/23 11:23 06/24/23 11:28 Lorazepam 1 Mg Tablet PO 06/24/23 11:24 2 mg ONCE ONE Administration Lorazepam 1 mg 06/24/23 18:40 06/24/23 18:43 Lorazepam 1 Mg Tablet PO 06/24/23 18:41 1 mg ONCE ONE Administration Lorazepam 2 mg 06/25/23 05:18 06/25/23 05:21 Lorazepam 1 Mg Tablet PO 06/25/23 05:19 2 mg ONCE ONE Administration Lorazepam 1 mg 06/25/23 07:28 06/25/23 07:34 Lorazepam 1 Mg Tablet PO 06/25/23 07:29 1 mg ONCE ONE Administration Olanzapine 10 mg 06/24/23 21:46 06/24/23 21:49 Olanzapine 10 Mg Tablet PO 06/24/23 21:47 10 mg ONCE ONE Administration Trazodone HCl 50 mg 06/24/23 19:41 06/24/23 21:49 Trazodone Hcl 50 Mg Tablet PO 06/24/23 19:42 50 mg ONCE ONE Administration Medical Decision Making Medical Decision Making [facility] Narrative: This is a 23-year-old male presenting to the emergency department with complaints of visual hallucinations. On arrival, patient mildly hypertensive at 162/91, all other vital signs within normal limits. Upon initial arrival he was calm and cooperative, having conversation with nursing staff in regards with cartel. Shortly after, patient began to have increased agitation. He states that he is feeling as though he is in a manic episode and is requiring medications. I was notified by this by the nursing staff, therefore Ativan as well as Haldol 10 mg p.o. was ordered. He was not redirectable and was reportedly playing with sewage line. He is taken approximately 6 showers since his arrival in the emergency department 14:54 06/25/2023: I discussed the patient with the care team. Patient was not earlier today by Psychiatry: There was in a prescription of Haldol 5 mg t.i.d.. Patient displays no signs or symptoms of substance withdrawal. Patient agrees with plan, ready for discharge Differential Diagnosis Differential Diagnoses: The differential diagnosis associated with the presentation includes Depression, anxiety, giuliana, psychosis Admission/Observation Consideration of admission/observation: Escalation of care including admission/observation considered Lab Data [facility] Lab Attestation statement: I reviewed the patient's lab results. No leukocytosis, stable H&H, chemistry within normal limits. Slight elevation in liver transaminases, patient has a history of this. 06/24/23 12:35 06/24/23 12:35 Labs: Lab Results 06/24/23 06/24/23 06/24/23 Range/Units 10:30 12:35 12:54 WBC 9.7 (4.8-10.8) X10*3/uL RBC 5.10 (4.60-5.80) X10*6/uL Hgb 14.4 (14.0-18.0) g/dl Hct 43.2 (42.0-52.0) % MCV 84.7 (80.0-98.0) fL MCH 28.2 (27.0-33.0) pg MCHC 33.3 (31.0-36.0) g/dl RDW 13.2 (11.0-16.0) % Plt Count 242 (160-400) X10*3/uL MPV 11.6 (9.4-12.4) fL Immature Gran % (Auto) 0.4 (0.0-0.4) % Neut % (Auto) 64.6 (45-73) % Lymph % (Auto) 24.1 (20-40) % [place] % (Auto) 9.5 (2-11) % Eos % (Auto) 0.8 (0-4) % Baso % (Auto) 0.6 (0-2) % Lymph # (Auto) 2.3 (1.2-4.9) X10*3/uL [place] # (Auto) 0.9 (0.1-1.2) X10*3/uL Eos # (Auto) 0.1 (0.0-0.4) X10*3/uL Baso # (Auto) 0.1 (0.0-0.2) X10*3/uL Abs Immat Gran (auto) 0.04 H (0.00-0.03) X10*3/uL Absolute Neuts (auto) 6.3 (2.0-8.3) x10*3/uL Absolute Nucleated RBC 0.000 (0.0-0.012) X10*3/uL Nucleated RBC % (auto) 0.0 (0.0-0.2) /100WBC Sodium 141 (135-145) mmol/L Potassium 3.9 (3.3-5.1) mmol/L Chloride 110 H (96-108) mmol/L Carbon Dioxide 23 (22-29) mmol/L Anion Gap 12 (12-20) BUN 16 (9-16) mg/dL Creatinine 0.83 (0.5-1.4) mg/dL Estim Creat Clear Calc 149.3 Estimated GFR > 60 Random Glucose 98 (60-115) mg/dL Calcium 9.4 (8.4-10.2) mg/dL Total Bilirubin 0.3 (0.0-1.0) mg/dL AST 53 H (5-37) U/L ALT 95 H (0-40) U/L Alkaline Phosphatase 71 (39-117) U/L Ammonia (13-55) umol/L Total Protein 7.0 (6.5-8.0) g/dL Albumin 4.2 (3.5-5.0) g/dL Urine Color Yellow Urine Appearance Clear Urine pH 8.0 (5.0-9.0) Ur Specific [place] <= 1.005 (1.005-1.025) Urine Protein Negative (Neg-Trace) mg/dL Urine Glucose (UA) Negative (Negative) mg/dL Urine Ketones Negative (Negative) mg/dL Urine Blood Negative (Negative) Urine Nitrite Negative (Negative) Ur Leukocyte Esterase Negative (Negative) Urine Opiates Screen Not Detected (Not Detect) Urine Fentanyl Screen Not Detected (Not Detect) Ur Barbiturates Screen Not Detected (Not Detect) Valproic Acid 57.4 (50.0-100.0) mcg/mL Ur Phencyclidine Scrn Not Detected (Not Detect) Ur Amphetamines Screen Not Detected (Not Detect) U Benzodiazepines Scrn Not Detected (Not Detect) Urine Cocaine Screen Not Detected (Not Detect) U Marijuana (THC) Screen Not Detected (Not Detect) Ethyl Alcohol < 10 mg/dL COVID-19 (KELVIN) Negative (Negative) COVID-19 Clin Com See Note 06/25/23 Range/Units 13:16 WBC (4.8-10.8) X10*3/uL RBC (4.60-5.80) X10*6/uL Hgb (14.0-18.0) g/dl Hct (42.0-52.0) % MCV (80.0-98.0) fL MCH (27.0-33.0) pg MCHC (31.0-36.0) g/dl RDW (11.0-16.0) % Plt Count (160-400) X10*3/uL MPV (9.4-12.4) fL Immature Gran % (Auto) (0.0-0.4) % Neut % (Auto) (45-73) % Lymph % (Auto) (20-40) % [place] % (Auto) (2-11) % Eos % (Auto) (0-4) % Baso % (Auto) (0-2) % Lymph # (Auto) (1.2-4.9) X10*3/uL [place] # (Auto) (0.1-1.2) X10*3/uL Eos # (Auto) (0.0-0.4) X10*3/uL Baso # (Auto) (0.0-0.2) X10*3/uL Abs Immat Gran (auto) (0.00-0.03) X10*3/uL Absolute Neuts (auto) (2.0-8.3) x10*3/uL Absolute Nucleated RBC (0.0-0.012) X10*3/uL Nucleated RBC % (auto) (0.0-0.2) /100WBC Sodium (135-145) mmol/L Potassium (3.3-5.1) mmol/L Chloride (96-108) mmol/L Carbon Dioxide (22-29) mmol/L Anion Gap (12-20) BUN (9-16) mg/dL Creatinine (0.5-1.4) mg/dL Estim Creat Clear Calc Estimated GFR Random Glucose (60-115) mg/dL Calcium (8.4-10.2) mg/dL Total Bilirubin (0.0-1.0) mg/dL AST (5-37) U/L ALT (0-40) U/L Alkaline Phosphatase (39-117) U/L Ammonia 39 (13-55) umol/L Total Protein (6.5-8.0) g/dL Albumin (3.5-5.0) g/dL Urine Color Urine Appearance Urine pH (5.0-9.0) Ur Specific [place] (1.005-1.025) Urine Protein (Neg-Trace) mg/dL Urine Glucose (UA) (Negative) mg/dL Urine Ketones (Negative) mg/dL Urine Blood (Negative) Urine Nitrite (Negative) Ur Leukocyte Esterase (Negative) Urine Opiates Screen (Not Detect) Urine Fentanyl Screen (Not Detect) Ur Barbiturates Screen (Not Detect) Valproic Acid (50.0-100.0) mcg/mL Ur Phencyclidine Scrn (Not Detect) Ur Amphetamines Screen (Not Detect) U Benzodiazepines Scrn (Not Detect) Urine Cocaine Screen (Not Detect) U Marijuana (THC) Screen (Not Detect) Ethyl Alcohol mg/dL COVID-19 (KELVIN) (Negative) COVID-19 Clin Com Discharge Plan Discharge Clinical Impression: Bipolar disorder Patient Disposition: Still a Patient Prescriptions: No Action olanzapine 10 mg tablet 10 mg PO BID divalproex [Depakote ER] 500 mg Tablet Extended Release 24 Hr 500 mg PO AC lorazepam 1 mg PO BEDTIME PRN (Reason: Anxiety) lamotrigine 200 mg tablet 200 mg PO BEDTIME lithium carbonate 300 mg Tablet 300 mg PO DAILY Rx Instructions: Daily at noon divalproex [Depakote ER] 500 mg Tablet Extended Release 24 Hr 1,000 mg PO QPM cholecalciferol (vitamin D3) 50 mcg (2,000 unit) tablet 50 mcg PO DAILY cyanocobalamin (vitamin B-12) [Vitamin B-12] 1,000 mcg tablet 1,000 mcg PO DAILY omega-3 fatty acids-fish oil [Fish Oil] 360-1,200 mg capsule 2 cap PO DAILY ascorbic acid (vitamin C) 1,000 mg tablet 1,000 mg PO BID
[2023-06-24] MEDS: diphenhydrAMINE HCL 50 MG/ML VIAL IM (12:03)
[2023-06-24 12:10] LABS: Appearance Urine Clear; Color Urine Yellow; Glucose Urine UA Negative (Negative); Leukocyte Esterase Urine Negative (Negative); Nitrite Urine Negative (Negative); Specific Gravity - Urine <= 1.005 (1.005-1.025); Urine Blood Negative (Negative); Urine Ketones Negative (Negative); Urine Protein Negative (Neg-Trace)
[2023-06-24 12:46] LABS: MANUAL DIFF FLAG NO
[2023-06-24 12:47] LABS: Basophils Absolute Auto 0.1 X10*3/uL (0.0-0.2); Basophils Percent Auto 0.6 % (0-2); Eosinophils Absolute Auto 0.1 X10*3/uL (0.0-0.4); Eosinophils Percent Auto 0.8 % (0-4); Hematocrit 43.2 % (42.0-52.0); Hemoglobin 14.4 g/dl (14.0-18.0); Imm Gran Abs Auto 0.04 X10*3/uL (0.00-0.03); Imm Gran Pct Auto 0.4 % (0.0-0.4); Lymphocytes Absolute Auto 2.3 X10*3/uL (1.2-4.9); Lymphocytes Percent Auto 24.1 % (20-40); Mean Corpuscular HGB Conc 33.3 g/dl (31.0-36.0); Mean Corpuscular Hemoglobin 28.2 pg (27.0-33.0); Mean Corpuscular Volume 84.7 fL (80.0-98.0); Mean Platelet Volume 11.6 fL (9.4-12.4); Monocytes Absolute Auto 0.9 X10*3/uL (0.1-1.2); Monocytes Percent Auto 9.5 % (2-11); Neutrophils Absolute Auto 6.3 x10*3/uL (2.0-8.3); Neutrophils Percent Auto 64.6 % (45-73); Platelet Count 242 X10*3/uL (160-400); Red Cell Distribution Width 13.2 % (11.0-16.0); White Blood Count 9.7 X10*3/uL (4.8-10.8)
--- NOTE | 2023-06-24 13:04 | PC.NURSE ---
This RN bob pts blood without issue. Mother came to visit, no problems arose. Pt is now resting on bed at this time, respirations even and unlabored, skin pwd, no apparent distress
[2023-06-24 13:11] LABS: Alanine Aminotransferase 95 U/L (0-40); Albumin Level 4.2 g/dL (3.5-5.0); Alkaline Phosphatase 71 U/L (39-117); Anion Gap 12 (12-20); Aspartate Amino Transferase 53 U/L (5-37); Bilirubin Total 0.3 mg/dL (0.0-1.0); Blood Urea Nitrogen 16 mg/dL (9-16); Calcium 9.4 mg/dL (8.4-10.2); Carbon Dioxide 23 mmol/L (22-29); Chloride 110 mmol/L (96-108); Creatinine Clr Calc Pharmacy 149.3; Estimated Glomerular Filt Rate > 60; Ethanol < 10 mg/dL; Glucose Random 98 mg/dL (60-115); Potassium 3.9 mmol/L (3.3-5.1); Sodium 141 mmol/L (135-145)
[2023-06-24 13:16] LABS: Valproate 57.4 mcg/mL (50.0-100.0)
[2023-06-24 13:24] LABS: COVID-19 Test Negative (Negative); IDNOW Serial# 9DB6401D
[2023-06-24 14:30] VITALS: RESP 14
--- NOTE | 2023-06-24 15:34 | PHA.MEDREC ---
Addendum entered by [facility], located within [facility] 06/25/23 08:35: Spoke to Nikko at [facility] ([phone]) and confirmed that pt picked up rx for depakote ER 500 mg 3 tabs qhs (from Dr. Shamir Daily [phone]) on 06/23/23. Home med list was updated and Dr. Lucrecia Agee was notified. Addendum entered by [facility] 06/24/23 21:04: Patient report no longer on lithium instead is on depakote. Call mom to confirm. Mom reported Bethalto and lamotrigene were stopped now patient is on Zyprexa and Depakote. Mom unsure of depakote dose, patient is report 1000 mg at bedtime, will need to all and confirm with pharmacy in the morning the exact directions. Original Note: Pharmacy Consult ? Medication Reconciliation Pharmacy has completed the medication reconciliation. Patient discharge from inaptient unit on 06/04. Utilizde discharge summary from 06/04 and claim history. 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 Beatrice Hopper, PharmD
--- NOTE | 2023-06-24 17:41 | MHC.CARE ---
RAD team completed a referral to [facility] for this individual for a 3 day follow up and community support. Will follow up tomorrow 06/24/23 to confirm receipt.
[2023-06-24] MEDS: LORazepam 1 MG TABLET PO (18:43)
--- NOTE | 2023-06-24 19:07 | PC.NURSE ---
patient ambulating throughout unit, requesting food, making frequent requests, patient appears in no distress
[2023-06-24 20:36] VITALS: BP 158/71; PULSE 98; RESP 18; TEMP 36.6; O2SAT 99
[2023-06-24] MEDS: traZODone HCL 50 MG TABLET PO (21:49)
[2023-06-24] MEDS: OLANZapine 10 MG TABLET PO (21:49)
[2023-06-25 04:59] VITALS: BP 143/84; PULSE 93; RESP 18; TEMP 36.6; O2SAT 100
[2023-06-25] MEDS: LORazepam 1 MG TABLET 2 MG PO (05:21)
[2023-06-25] MEDS: LORazepam 1 MG TABLET PO (07:34)
--- NOTE | 2023-06-25 08:08 | PC.NURSE ---
Pt requesting security, security at bedside at this time.
--- NOTE | 2023-06-25 10:01 | PC.NURSE ---
Pt requesting morning medications. Med list requested [facility].
--- NOTE | 2023-06-25 11:21 | PC.NURSE ---
Pt up, talking with mariely at this time.
--- NOTE | 2023-06-25 12:27 | PC.NURSE ---
Psych at bedside to evaluate patient.
[2023-06-25] MEDS: Divalproex Sodium ER 500 MG TAB.ER.24H PO (12:35)
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
[2023-06-25 14:43] LABS: Ammonia 39 umol/L (13-55)
== END 2023-06-25 15:06 | disposition home or self-care (01) ==
PROVIDERS: Social Worker; Emergency Provider Emergency Medicine; PCP Physician Assistant
DX: F25.0 Schizoaffective disorder, bipolar type (principal); F30.9 Manic episode, unspecified; R45.1 Restlessness and agitation; F41.9 Anxiety disorder, unspecified; Z79.899 Other long term (current) drug therapy
CPT/HCPCS: 36415; 80053; 80164; 80307; 81003; 82140; 85025; 87635; 96372; 99284; 99285; J1200; J1630; S9485

== ENCOUNTER → 2023-06-24 10:48 | Outpatient (BNV) | payer OTHER, SELFPAY | PROVIDERS: Emergency Provider Emergency Medicine; PCP Physician Assistant; Visit Provider Social Worker | DX: F25.0 Schizoaffective disorder, bipolar type (principal) | CPT/HCPCS: 99285 ==

== ENCOUNTER 2023-06-26 03:59 | Emergency (ER) | payer OTHER, SELFPAY ==
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
[2023-06-26 04:21] VITALS: PULSE 107; RESP 16; O2SAT 97; BMI 32.1
--- NOTE | 2023-06-26 04:23 | PC.NURSE ---
pt refusing to have blood pressure taken.
--- NOTE | 2023-06-26 05:28 | ED.EXTPRO ---
HPI - Extremity Problem General Chief complaint: Extremity Injury, Upper Stated complaint: Rt hand inj punched wall Time Seen by Provider: 06/26/23 05:28 Source: patient Mode of arrival: ambulatory Limitations: no limitations History of Present Illness HPI Narrative: 23 yo male with PMH of schizoaffective disorder bipolar type here with c/o R hand pain after punching a wall. He wants to go home but he states his mom is mad at him after his brother and him got into it about his brother's drinking. He states he just wants to sleep but she told him not to come home tonight. He wants to go home and use his weighted blanket. MD Complaint: joint pain Onset (ago): hour(s) (few) Pain Consistency: intermittent Location: right and upper extremity Quality: dull Radiation: none Relieving factors: nothing Exacerbating factors: palpation Associated symptoms: denies other symptoms Context: other (states he punched a wall) Related Data Home Medications Medication Instructions Recorded Confirmed ascorbic acid (vitamin C) 1,000 mg 1,000 mg PO BID 07/20/22 06/24/23 tablet cholecalciferol (vitamin D3) 50 50 mcg PO DAILY 07/20/22 06/24/23 mcg (2,000 unit) tablet cyanocobalamin (vitamin B-12) 1,000 mcg PO DAILY 07/20/22 06/24/23 1,000 mcg tablet (Vitamin B-12) omega-3 fatty acids-fish oil 360 2 cap PO DAILY 07/20/22 06/24/23 mg-1,200 mg capsule (Fish Oil) olanzapine 10 mg tablet 10 mg PO BID Psychosis 06/24/23 06/25/23 divalproex 500 mg tablet,extended 1,000 mg PO QPM 06/25/23 06/25/23 release 24 hr (Depakote ER) divalproex 500 mg tablet,extended 500 mg PO AC 06/25/23 06/25/23 release 24 hr (Depakote ER) lamotrigine 200 mg tablet 200 mg PO BEDTIME 06/25/23 06/25/23 lithium carbonate 300 mg tablet 300 mg PO DAILY 06/25/23 06/25/23 lorazepam 1 mg PO BEDTIME PRN Anxiety 06/25/23 06/25/23 Previous Rx's Medication Instructions Recorded haloperidol 5 mg tablet 5 mg PO TID #90 tabs 06/25/23 Allergies Allergy/AdvReac Type Severity Reaction Status Date / Time fluoxetine AdvReac Severe giuliana Verified 06/05/23 20:17 Review of Systems Review of Systems: Constitutional : No Fever, No Chills Eyes: No Eye Pain, No Swelling, No Redness, No Foreign Body Cardiovascular : No Chest Pain, No SOB Respiratory : No Cough, No Dyspnea Gastrointestinal : No Nausea, No Vomiting, No Diarrhea, No abdominal Pain Genitourinary : No Dysuria, No Hematuria Musculoskeletal : positive joint pain, No Myalgias, No Joint Swelling Skin : No Skin lacerations, No rash Neuro : No Weakness, No Numbness, No Loss of Consciousness, No Dizziness, No Headache Psych : pos Anxiety/Panic, No Depression All other systems reviewed and are negative [facility] Past Medical History Attestation statement: The following information was validated with the patient. Source: old records reviewed Medical History Schizoaffective disorder, bipolar type Fibroepithelial polyp No known health problems Bipolar 1 disorder with moderate giuliana Depression Anxiety Surgical History S/P colonoscopy H/O endoscopy Family History Family History Mother Alcohol abuse Mental problem Father Alcohol abuse Mental problem Melanoma Social History Social History Household Members: Family Household Members Other:: mom and brother Housing: House Do you presently have visiting nurse or other home services: No Alcohol intake: current Alcohol intake frequency: holidays/special occasions only Alcohol type: wine Comment: none Patient Tobacco Use Status: Never used Tobacco e-Cigarette/Vaping Use: Never Used Second Hand Smoke Exposure: Yes ( sometimes but not too often ) Advance Directives: No Advance Directives Information Provided: No service: No Current occupational status: disabled 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 Oriented X3. No acute distress. calm and cooperative, telling story about what happened tonight eating chips with right hand, using R hand for activities Eyes: Pupils equal, round and reactive to light. ENT: Pharynx normal. Neck: Normal inspection. Neck supple. CVS: Pulses normal. Respiratory: No respiratory distress. Abdomen: atraumatic Skin: Skin warm and dry. Normal skin color. Normal skin turgor. Extremities: No lower extremity edema. R hand appears normal and atraumatic Neuro: Oriented X 3. No motor deficit. No sensory deficit. Course Course Course Narrative: did call and leave message with mom to call back - will keep him in waiting room until she calls back. He is calm cooperative and eating chips initially agitated with tool crib lead staff then calmed down and has been appropriate. Medical Decision Making Medical Decision Making [facility] Narrative: 23 yo male with schizoaffective disorder well known to us here with c/o R hand pain after punching a wall he is using the hand and it appears atraumatic xray is ordered. He states he wants us to call his mom to see if its okay if he goes back - he is calm and cooperative initially had anxiety. I asked if he was in crisis and needed to talk to CARE or psych and he states no he just wants to sleep and use his weighted blanket. He is much improved from the last visit I saw him at. Will attempt to reach his mom. Differential Diagnosis Differential Diagnoses: The differential diagnosis associated with the presentation includes sprain, strain, doubt fracture - xray ordered Independent Interpretation I performed an independent interpretation of an: Plain X-Ray (no fx) Radiology Impression Discussion of test interpretation with radiology: I have reviewed the radiologist's reading. External Record Review External record reviewed: Inpatient record Discharge Plan Discharge Clinical Impression: Hand sprain Qualifiers: Encounter type: initial encounter Laterality: right Qualified Code(s): S63.91XA - Sprain of unspecified part of right wrist and hand, initial encounter Patient Disposition: Home, Self-Care Instructions: Hand Sprain (ED) Additional Instructions: normal xray of R hand. no broken bones. return for weakness, numbness, blue hand or any other concerns. Prescriptions: No Action olanzapine 10 mg tablet 10 mg PO BID divalproex [Depakote ER] 500 mg Tablet Extended Release 24 Hr 500 mg PO AC lorazepam 1 mg PO BEDTIME PRN (Reason: Anxiety) lamotrigine 200 mg tablet 200 mg PO BEDTIME lithium carbonate 300 mg Tablet 300 mg PO DAILY Rx Instructions: Daily at noon divalproex [Depakote ER] 500 mg Tablet Extended Release 24 Hr 1,000 mg PO QPM haloperidol 5 mg tablet 5 mg PO TID Qty: 90 0RF cholecalciferol (vitamin D3) 50 mcg (2,000 unit) tablet 50 mcg PO DAILY cyanocobalamin (vitamin B-12) [Vitamin B-12] 1,000 mcg tablet 1,000 mcg PO DAILY omega-3 fatty acids-fish oil [Fish Oil] 360-1,200 mg capsule 2 cap PO DAILY ascorbic acid (vitamin C) 1,000 mg tablet 1,000 mg PO BID
== END 2023-06-26 05:49 | disposition home or self-care (01) ==
PROVIDERS: Emergency Provider Emergency Medicine; PCP Physician Assistant
DX: S63.91XA Sprain of unspecified part of right wrist and hand, initial encounter (principal); W22.09XA Striking against other stationary object, initial encounter; Y93.89 Activity, other specified; Y92.019 Unspecified place in single-family (private) house as the place of occurrence of the external cause; Y99.9 Unspecified external cause status
CPT/HCPCS: 73130; 99282; 99283

== ENCOUNTER 2023-06-26 19:01 | Emergency (ER) | payer OTHER, SELFPAY ==
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
[2023-06-26 19:26] VITALS: BP 150/89; PULSE 88; RESP 22; TEMP 37; O2SAT 95; BMI 33.4
[2023-06-26] MEDS: LORazepam 1 MG TABLET 2 MG PO (19:36)
[2023-06-26] MEDS: HaloperidoL 5 MG TABLET 10 MG PO (19:36)
[2023-06-26] MEDS: diphenhydrAMINE HCL 25 MG CAPSULE 50 MG PO (19:36)
--- NOTE | 2023-06-26 19:46 | PC.NURSE ---
Pt agreeable to taking PO meds. Reports HI OH I KNOW WHO, I AM HEARING VOICES .
--- NOTE | 2023-06-26 19:47 | PC.NURSE ---
Pt ran out to back hallway, yelling I hear them security called for escort back to room.
[2023-06-26] MEDS: Haloperidol Lactate 5 MG/ML VIAL 10 MG IM (19:56)
[2023-06-26] MEDS: Midazolam HCl/PF 2 MG/2 ML VIAL IM (19:56)
--- NOTE | 2023-06-26 20:05 | PC.NURSE ---
Pt yelling requesting IM medication. Pt medicated per MAR.
[2023-06-26 20:09] LABS: Amphetamine Screen Urine Not Detected (Not Detect); Barbiturates, Urine Not Detected (Not Detect); Benzodiazepines Screen Urine Not Detected (Not Detect); Cannabinoid Screen Urine Not Detected (Not Detect); Cocaine Screen Urine Not Detected (Not Detect); Fentanyl, urine Not Detected (Not Detect); Opiate Screen Urine Not Detected (Not Detect); Phencyclidine Screen Urine Not Detected (Not Detect)
[2023-06-26 20:13] LABS: COVID-19 Test Negative (Negative); IDNOW Serial# 08D9AD1C
[2023-06-26 20:30] VITALS: BP 158/62; PULSE 84; RESP 20; O2SAT 99
[2023-06-26 21:05] LABS: MANUAL DIFF FLAG NO
[2023-06-26 21:07] LABS: Basophils Absolute Auto 0.1 X10*3/uL (0.0-0.2); Basophils Percent Auto 0.4 % (0-2); Eosinophils Absolute Auto 0.2 X10*3/uL (0.0-0.4); Eosinophils Percent Auto 1.6 % (0-4); Hematocrit 40.8 % (42.0-52.0); Hemoglobin 13.5 g/dl (14.0-18.0); Imm Gran Abs Auto 0.04 X10*3/uL (0.00-0.03); Imm Gran Pct Auto 0.3 % (0.0-0.4); Lymphocytes Absolute Auto 3.1 X10*3/uL (1.2-4.9); Lymphocytes Percent Auto 25.9 % (20-40); Mean Corpuscular HGB Conc 33.1 g/dl (31.0-36.0); Mean Corpuscular Volume 84.6 fL (80.0-98.0); Mean Platelet Volume 11.7 fL (9.4-12.4); Monocytes Absolute Auto 1.4 X10*3/uL (0.1-1.2); Monocytes Percent Auto 11.7 % (2-11); Neutrophils Absolute Auto 7.3 x10*3/uL (2.0-8.3); Neutrophils Percent Auto 60.1 % (45-73); Platelet Count 222 X10*3/uL (160-400); Red Blood Count 4.82 X10*6/uL (4.60-5.80); Red Cell Distribution Width 13.1 % (11.0-16.0); White Blood Count 12.1 X10*3/uL (4.8-10.8)
[2023-06-26 21:21] LABS: Alanine Aminotransferase 62 U/L (0-40); Albumin Level 4.1 g/dL (3.5-5.0); Alkaline Phosphatase 63 U/L (39-117); Anion Gap 13 (12-20); Aspartate Amino Transferase 49 U/L (5-37); Bilirubin Total 0.2 mg/dL (0.0-1.0); Blood Urea Nitrogen 20 mg/dL (9-16); Calcium 9.3 mg/dL (8.4-10.2); Carbon Dioxide 23 mmol/L (22-29); Chloride 108 mmol/L (96-108); Creatinine Clr Calc Pharmacy 183.9; Estimated Glomerular Filt Rate > 60; Ethanol < 10 mg/dL; Glucose Random 121 mg/dL (60-115); Sodium 140 mmol/L (135-145); Total Protein 6.7 g/dL (6.5-8.0)
[2023-06-26 22:00] VITALS: BP 143/67; PULSE 82; RESP 12; O2SAT 99
[2023-06-27] VITALS: BP 150/64; PULSE 67; RESP 12; O2SAT 99
[2023-06-27 02:00] VITALS: RESP 12
--- NOTE | 2023-06-27 03:20 | PC.NURSE ---
Pt laying in stretcher, appears to be sleeping, equal non labored chest rise.
[2023-06-27 04:00] VITALS: RESP 12
--- NOTE | 2023-06-27 05:44 | PC.NURSE ---
Addendum entered by Carol Ann Fuller 06/27/23 06:41: Breakfast tray given. Addendum entered by Carol Ann Fuller 06/27/23 06:15: Pt requesting phone. States I need to be in the POD before tomorrow or I am going to go home . Pt states feeling better after sleeping . Denies SI/HI/AH/VH. Original Note: Pt awake, calm and cooperative, ambulated to BR independently with steady gait.
[2023-06-27 06:00] VITALS: BP 141/64; PULSE 88; RESP 16; TEMP 36.1; O2SAT 99
[2023-06-27] MEDS: diphenhydrAMINE HCL 25 MG CAPSULE 50 MG PO (07:53)
[2023-06-27] MEDS: LORazepam 1 MG TABLET 2 MG PO (07:53)
[2023-06-27] MEDS: OLANZapine 10 MG TABLET PO (07:53)
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
--- NOTE | 2023-06-27 08:15 | PC.NURSE ---
pt moved over to the pod at this time. report given to YUVAL Reid.
[2023-06-27 14:24] VITALS: RESP 18
--- NOTE | 2023-06-27 16:38 | PC.NURSE ---
Han transferred to the POD from the main ED. He was medicated before coming over and slept for several hours. Han advocating that he feels clear and denies feeling manic. Han is requesting to be discharged. CARE team to assess.
--- NOTE | 2023-06-28 21:27 | HE.PHANOTE ---
Discharge Medication list from [facility] received today: Depakote 1500 mg QHS Lorazepam 1 mg QHS PRN Zyprexa 10 mg BID [place]-3 polyunsarurate fatty acids 2 cap QD vit b12 1000 mcg QD vit c 1000 mg BID vit d3 50 mcg QD
== END 2023-06-27 19:15 | disposition home or self-care (01) ==
PROVIDERS: Emergency Provider Emergency Medicine Emergency Medical Services
DX: F30.9 Manic episode, unspecified (principal); R45.851 Suicidal ideations; R45.850 Homicidal ideations; F25.0 Schizoaffective disorder, bipolar type; Z11.52 Encounter for screening for COVID-19; Z79.899 Other long term (current) drug therapy
CPT/HCPCS: 36415; 80053; 80307; 85025; 87635; 96372; 99285; J1630; J2250; S9485

== ENCOUNTER 2023-06-29 07:15 | Inpatient (IN) | payer OTHER, SELFPAY ==
[2023-06-29] VITALS (20 sets, daily range): BP systolic 118–167; BP diastolic 49–73; PULSE 78–155; RESP 15–22; TEMP 32–37.8; O2SAT 95–100; BMI 34.1; BMI 34.5
--- NOTE | ~2023-06-29 | XR_ITS ---
EXAMINATION: XR CHEST CLINICAL INFORMATION: Line placement COMPARISON: Previous chest x-ray April 2023 TECHNIQUE: Frontal view of the chest was obtained. FINDINGS: Endotracheal with tip 7.5 cm above the liz. Nasogastric tube tip projects over proximal stomach. No central line seen. The cardiac and mediastinal contours are normal. The lungs are clear. No pleural effusion or pneumothorax. XR/XR chest 1V IMPRESSION: Endotracheal tube tip 7.5 cm above the liz. Nasogastric tube tip projects over proximal stomach. No central line seen.
--- NOTE | ~2023-06-29 | XR_ITS ---
EXAMINATION: XR CHEST CLINICAL INFORMATION: Respiratory failure. Endotracheal tube placement. COMPARISON: 05/12/2023. TECHNIQUE: Frontal view of the chest was obtained. FINDINGS: The cardiomediastinal silhouette is within normal limits and stable. There is an endotracheal tube seen in adequate position above the liz. A gastric tube extends below the diaphragm into the left upper quadrant. There is no focal lung consolidation or pleural effusion. The bony structures and soft tissues are unremarkable. XR/XR chest 1V IMPRESSION: Endotracheal tube in adequate position above the liz. Gastric tube in adequate position. No acute cardiopulmonary process.
--- NOTE | 2023-06-29 07:55 | PC.NURSE ---
Patient changed over by security, belongings locked in POD, patient denies pain reports took friends trazodone and slept for 8 hours so now he feels great. Speaking rapidly, denies SI/HI continually stating that he needs his medications adjusted because he is currently on no medications
--- NOTE | 2023-06-29 07:56 | ED.GENADULT ---
HPI - General Adult General Chief complaint: Psychiatric Symptoms Stated complaint: Crisis Time Seen by Provider: 06/29/23 07:41 Source: patient Mode of arrival: ambulatory Limitations: no limitations History of Present Illness HPI narrative: 23-year-old male history of schizoaffective disorder, bipolar disorder with moderate giuliana presenting to the emergency department requesting inpatient admission into the psychiatric unit. Patient tells me that he was recently inpatient psych and they took him off of all his medicines and he does not feel like this is right. Denies suicidal and homicidal ideation. No hallucinations. No medical complaints. Related Data Home Medications Medication Instructions Recorded Confirmed ascorbic acid (vitamin C) 1,000 mg 1,000 mg PO BID 07/20/22 06/24/23 tablet cholecalciferol (vitamin D3) 50 50 mcg PO DAILY 07/20/22 06/24/23 mcg (2,000 unit) tablet cyanocobalamin (vitamin B-12) 1,000 mcg PO DAILY 07/20/22 06/24/23 1,000 mcg tablet (Vitamin B-12) omega-3 fatty acids-fish oil 360 2 cap PO DAILY 07/20/22 06/24/23 mg-1,200 mg capsule (Fish Oil) olanzapine 10 mg tablet 10 mg PO BID Psychosis 06/24/23 06/25/23 divalproex 500 mg tablet,extended 1,000 mg PO QPM 06/25/23 06/25/23 release 24 hr (Depakote ER) divalproex 500 mg tablet,extended 500 mg PO AC 06/25/23 06/25/23 release 24 hr (Depakote ER) lorazepam 1 mg PO BEDTIME PRN Anxiety 06/25/23 06/25/23 Previous Rx's Medication Instructions Recorded haloperidol 5 mg tablet 5 mg PO TID #90 tabs 06/25/23 Allergies Allergy/AdvReac Type Severity Reaction Status Date / Time fluoxetine AdvReac Severe giuliana Verified 06/29/23 07:30 Review of Systems Review of Systems: Yes all other systems are reviewed and are negative PMFSH Past Medical History Attestation statement: The following information was validated with the patient. Source: old records reviewed and nursing notes reviewed Medical History Schizoaffective disorder, bipolar type Fibroepithelial polyp No known health problems Bipolar 1 disorder with moderate giuliana Depression Anxiety Surgical History S/P colonoscopy H/O endoscopy Family History Family History Mother Alcohol abuse Mental problem Father Alcohol abuse Mental problem Melanoma Social History Social History Household Members: Family Household Members Other:: mom and brother Housing: House Do you presently have visiting nurse or other home services: No Alcohol intake: never Comment: none Patient Tobacco Use Status: Never used Tobacco Smoked in Last 30 Days: Yes e-Cigarette/Vaping Use: Never Used Second Hand Smoke Exposure: Yes ( sometimes but not too often ) Use of substances other than those prescribed or required for medical reasons: No Advance Directives: No Advance Directives Information Provided: Yes Healthcare Proxy: No Guardian: No service: No Current occupational status: disabled Current occupation: Student - Online Sexual orientation: Straight/Heterosexual Cognitive needs: No Hearing needs: No Vision needs: No Physical Exam ED Vital Signs: Vital Signs - 24 hr 06/29/23 07:28 06/29/23 10:15 06/29/23 10:30 Temperature 96.7 F L Pulse Rate 92 Respiratory Rate 22 H 22 H 20 Blood Pressure 152/73 H Pulse Oximetry 98 Oxygen Delivery Method Room Air 06/29/23 10:45 06/29/23 11:00 06/29/23 11:15 Temperature Pulse Rate 92 94 99 Respiratory Rate 20 16 16 Blood Pressure 134/66 126/58 L Pulse Oximetry 95 99 99 Oxygen Delivery Method Room Air Room Air Room Air 06/29/23 12:30 06/29/23 14:34 Temperature Pulse Rate 95 Respiratory Rate 20 15 Blood Pressure 127/59 L Pulse Oximetry 98 Oxygen Delivery Method Room Air BMI result Body Mass Index 34.5 vss Appearance: Alert.? Oriented X3.? No acute distress.? Head: Normocephalic, atraumatic, no step-offs or deformities Eyes: Pupils equal, round and reactive to light.? CVS: Normal heart rate and rhythm.? Pulses normal.? Respiratory: No respiratory distress.? Breath sounds normal.? Abdomen: Soft and nontender.? Skin: Skin warm and dry.? Normal skin color.? Normal skin turgor.? Extremities: No lower extremity edema.? No calf ttp. 5/5 strength to bilateral upper and lower extremities Neuro: Oriented X 3.? No motor deficit.? No sensory deficit. CN 2-12 intact Course Reevaluation(s) Reevaluation #1: Patient became combative. Code assist called. Patient was given IM medications as he was a threat to self and others. Time: 10:15 Reevaluation #2: Patient has been resting. Medically cleared at this time CBC normal. Chemistry unremarkable. Toxicology negative. Ethanol negative. Valproic acid 33.8. Ordered IV valproic acid as recommended by psychiatry Anne-Marie Augustin Also recommends IV haldol as needed. Plan inpatient bedsearch. This time patient to be placed into observation. Resting comfortably on the stretcher. Time: 15:24 Medications Administered Discontinued Medications Generic Name Dose Route Start Last Admin Trade Name Freq PRN Reason Stop Dose Admin Diphenhydramine HCl 50 mg 06/29/23 09:41 06/29/23 09:43 Diphenhydramine Hcl 25 Mg Capsule PO 06/29/23 09:42 50 mg ONCE ONE Administration Haloperidol Lactate 10 mg 06/29/23 10:15 06/29/23 10:15 Haloperidol Lactate 5 Mg/Ml Vial IM 06/29/23 10:16 10 mg ONCE ONE Administration Valproic Acid 1,000 mg/ 60 mls @ 60 mls/hr 06/29/23 13:01 06/29/23 15:09 Dextrose IV 06/29/23 14:00 Infused ONCE ONE Infusion [place] Carbonate 300 mg 06/29/23 08:45 06/29/23 09:03 [place] Carbonate 300 Mg Capsule PO 06/29/23 08:46 300 mg ONCE ONE Administration [place] Carbonate 300 mg 06/29/23 08:53 06/29/23 09:04 [place] Carbonate 300 Mg Capsule PO 06/29/23 08:54 300 mg ONCE ONE Administration Lorazepam 2 mg 06/29/23 09:41 06/29/23 09:43 Lorazepam 1 Mg Tablet PO 06/29/23 09:42 2 mg ONCE ONE Administration Midazolam HCl 4 mg 06/29/23 10:15 06/29/23 10:15 Midazolam Hcl/Pf 2 Mg/2 Ml Vial IM 06/29/23 10:16 4 mg ONCE ONE Administration Olanzapine 10 mg 06/29/23 08:48 06/29/23 09:04 Olanzapine 10 Mg Tablet PO 06/29/23 08:49 10 mg ONCE ONE Administration Medical Decision Making Medical Decision Making [facility] Narrative: 0757 23 year old male presents requesting in patient psychiatric admission PE benign Likely patient adjusting to new medication regimen for previous inpatient facility. Other differentials include schizoaffective disorder versus bipolar disorder. No SI or HI. Unlikely metabolic derangement Plan- med clearance evaluation by psych Differential Diagnosis Differential Diagnoses: The differential diagnosis associated with the presentation includes Likely patient adjusting to new medication regimen for previous inpatient facility. Other differentials include schizoaffective disorder versus bipolar disorder. No SI or HI. Unlikely metabolic derangement Admission/Observation Consideration of admission/observation: Escalation of care including admission/observation considered Lab Data [facility] Lab Attestation statement: I reviewed the patient's lab results. 06/29/23 11:00 06/29/23 11:00 Labs: Lab Results 06/29/23 06/29/23 06/29/23 Range/Units 08:22 11:00 11:27 WBC 10.8 (4.8-10.8) X10*3/uL RBC 4.85 (4.60-5.80) X10*6/uL Hgb 13.7 L (14.0-18.0) g/dl Hct 41.0 L (42.0-52.0) % MCV 84.5 (80.0-98.0) fL MCH 28.2 (27.0-33.0) pg MCHC 33.4 (31.0-36.0) g/dl RDW 13.0 (11.0-16.0) % Plt Count 222 (160-400) X10*3/uL MPV 11.7 (9.4-12.4) fL Immature Gran % (Auto) 0.6 H (0.0-0.4) % Neut % (Auto) 78.2 H (45-73) % Lymph % (Auto) 14.5 L (20-40) % [place] % (Auto) 5.7 (2-11) % Eos % (Auto) 0.4 (0-4) % Baso % (Auto) 0.6 (0-2) % Lymph # (Auto) 1.6 (1.2-4.9) X10*3/uL [place] # (Auto) 0.6 (0.1-1.2) X10*3/uL Eos # (Auto) 0.0 (0.0-0.4) X10*3/uL Baso # (Auto) 0.1 (0.0-0.2) X10*3/uL Abs Immat Gran (auto) 0.07 H (0.00-0.03) X10*3/uL Absolute Neuts (auto) 8.4 H (2.0-8.3) x10*3/uL Absolute Nucleated RBC 0.000 (0.0-0.012) X10*3/uL Nucleated RBC % (auto) 0.0 (0.0-0.2) /100WBC Sodium 140 (135-145) mmol/L Potassium 4.1 (3.3-5.1) mmol/L Chloride 108 (96-108) mmol/L Carbon Dioxide 23 (22-29) mmol/L Anion Gap 13 (12-20) BUN 14 (9-16) mg/dL Creatinine 0.77 (0.5-1.4) mg/dL Estim Creat Clear Calc 192.3 Estimated GFR > 60 Random Glucose 142 H (60-115) mg/dL Calcium 8.7 D (8.4-10.2) mg/dL Magnesium 1.9 (1.6-2.6) mg/dL Total Bilirubin 0.3 (0.0-1.0) mg/dL AST 36 (5-37) U/L ALT 49 H (0-40) U/L Alkaline Phosphatase 54 (39-117) U/L Total Protein 6.6 (6.5-8.0) g/dL Albumin 3.9 (3.5-5.0) g/dL Urine Opiates Screen Not Detected (Not Detect) Urine Fentanyl Screen Not Detected (Not Detect) Ur Barbiturates Screen Not Detected (Not Detect) Valproic Acid 33.8 L (50.0-100.0) mcg/mL Ur Phencyclidine Scrn Not Detected (Not Detect) Ur Amphetamines Screen Not Detected (Not Detect) U Benzodiazepines Scrn Not Detected (Not Detect) Urine Cocaine Screen Not Detected (Not Detect) U Marijuana (THC) Screen Not Detected (Not Detect) Ethyl Alcohol < 10 mg/dL Independent Interpretation I performed an independent interpretation of an: Plain X-Ray ( XR/XR hand RT min 3V IMPRESSION: No fracture identified. Mild soft tissue swelling. ) Critical Care Time Critical Care Time Critical Care Time: Yes Total Critical Care Time: 45 Attestation: I attest to this time spent taking care of the patient, obtaining history, physical, reviewing labs, imaging, speaking to my attending, speaking to specialist. Discharge Plan Discharge Clinical Impression: Acute psychosis Patient Disposition: Still a Patient Prescriptions: No Action olanzapine 10 mg tablet 10 mg PO BID divalproex [Depakote ER] 500 mg Tablet Extended Release 24 Hr 500 mg PO AC lorazepam 1 mg PO BEDTIME PRN (Reason: Anxiety) divalproex [Depakote ER] 500 mg Tablet Extended Release 24 Hr 1,000 mg PO QPM haloperidol 5 mg tablet 5 mg PO TID Qty: 90 0RF cholecalciferol (vitamin D3) 50 mcg (2,000 unit) tablet 50 mcg PO DAILY cyanocobalamin (vitamin B-12) [Vitamin B-12] 1,000 mcg tablet 1,000 mcg PO DAILY omega-3 fatty acids-fish oil [Fish Oil] 360-1,200 mg capsule 2 cap PO DAILY ascorbic acid (vitamin C) 1,000 mg tablet 1,000 mg PO BID Interventions: [place]-Suicide Risk Severity Scale Last Done: 06/29/23 07:53
[2023-06-29 08:52] LABS: Amphetamine Screen Urine Not Detected (Not Detect); Barbiturates, Urine Not Detected (Not Detect); Benzodiazepines Screen Urine Not Detected (Not Detect); Cannabinoid Screen Urine Not Detected (Not Detect); Cocaine Screen Urine Not Detected (Not Detect); Fentanyl, urine Not Detected (Not Detect); Opiate Screen Urine Not Detected (Not Detect); Phencyclidine Screen Urine Not Detected (Not Detect)
[2023-06-29] MEDS: Lithium Carbonate 300 MG CAPSULE PO ×2 (09:03→09:04)
[2023-06-29] MEDS: OLANZapine 10 MG TABLET PO (09:04)
[2023-06-29] MEDS: diphenhydrAMINE HCL 25 MG CAPSULE 50 MG PO (09:43)
[2023-06-29] MEDS: LORazepam 1 MG TABLET 2 MG PO (09:43)
[2023-06-29] MEDS: Midazolam HCl/PF 2 MG/2 ML VIAL 4 MG IM (10:15)
[2023-06-29] MEDS: Haloperidol Lactate 5 MG/ML VIAL 10 MG IM (10:15)
[2023-06-29 11:05] LABS: Basophils Absolute Auto 0.1 X10*3/uL (0.0-0.2); Basophils Percent Auto 0.6 % (0-2); Eosinophils Percent Auto 0.4 % (0-4); Hemoglobin 13.7 g/dl (14.0-18.0); Imm Gran Abs Auto 0.07 X10*3/uL (0.00-0.03); Imm Gran Pct Auto 0.6 % (0.0-0.4); Lymphocytes Absolute Auto 1.6 X10*3/uL (1.2-4.9); Lymphocytes Percent Auto 14.5 % (20-40); MANUAL DIFF FLAG NO; Mean Corpuscular HGB Conc 33.4 g/dl (31.0-36.0); Mean Corpuscular Hemoglobin 28.2 pg (27.0-33.0); Mean Corpuscular Volume 84.5 fL (80.0-98.0); Mean Platelet Volume 11.7 fL (9.4-12.4); Monocytes Absolute Auto 0.6 X10*3/uL (0.1-1.2); Monocytes Percent Auto 5.7 % (2-11); Neutrophils Absolute Auto 8.4 x10*3/uL (2.0-8.3); Neutrophils Percent Auto 78.2 % (45-73); Platelet Count 222 X10*3/uL (160-400); Red Blood Count 4.85 X10*6/uL (4.60-5.80); White Blood Count 10.8 X10*3/uL (4.8-10.8)
[2023-06-29 11:23] LABS: Alanine Aminotransferase 49 U/L (0-40); Albumin Level 3.9 g/dL (3.5-5.0); Alkaline Phosphatase 54 U/L (39-117); Anion Gap 13 (12-20); Aspartate Amino Transferase 36 U/L (5-37); Bilirubin Total 0.3 mg/dL (0.0-1.0); Blood Urea Nitrogen 14 mg/dL (9-16); Calcium 8.7 mg/dL (8.4-10.2); Carbon Dioxide 23 mmol/L (22-29); Chloride 108 mmol/L (96-108); Creatinine Clr Calc Pharmacy 192.3; Estimated Glomerular Filt Rate > 60; Ethanol < 10 mg/dL; Glucose Random 142 mg/dL (60-115); Magnesium 1.9 mg/dL (1.6-2.6); Potassium 4.1 mmol/L (3.3-5.1); Sodium 140 mmol/L (135-145); Total Protein 6.6 g/dL (6.5-8.0)
[2023-06-29 11:48] LABS: Valproate 33.8 mcg/mL (50.0-100.0)
--- NOTE | 2023-06-29 11:55 | PC.NURSE ---
PT CALM, SLEEPING AT THIS TIME, EASILY ROUSED BY VERBAL STIM. HOLDING OFF ON PRECEDEX GTT FOR NOW PER PA. AWAITING DEPAKOTE LEVEL.
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
[2023-06-29] MEDS: Valproic Acid (as Sodium Salt) 1,000 MG in Dextrose 5 % 50 ML 60 MG IV (13:51)
--- NOTE | 2023-06-29 13:58 | PC.NURSE ---
PT CURRENTLY AWAKE, REQUESTING FOOD. CALM, COOPERATIVE AT THIS TIME, DEPAKOTE GTT RUNNING.
[2023-06-29] MEDS: HaloperidoL 5 MG TABLET 10 MG PO (16:35)
[2023-06-29] MEDS: diphenhydrAMINE HCL 25 MG CAPSULE PO (16:35)
--- NOTE | 2023-06-29 19:13 | PC.NURSE ---
Assumed care of pt. Prior to this RN entering room, pt became acutely agitated, demanding to speak with his RN. This RN entered room, was able to redirect pt along with security. Per provider Sawyer, IV was removed at pt request in order to calm pt. Current plan of care to have low threshold for increased agitation. Pt lying on stretcher, warm blankets provided at this time.
[2023-06-29] MEDS: OLANZapine 10 MG VIAL 20 MG IM (20:12)
--- NOTE | 2023-06-29 20:12 | PC.NURSE ---
Pt became acutely aggressive and agitated, pt attempted to elope, security present. Orders placed for IM medication, given with no complications. Plan of care changed for intubation with sedation and xfer to ICU.
[2023-06-29] MEDS: Etomidate 20 MG/10 ML VIAL IVPUSH ×2 (21:00→21:12)
[2023-06-29] MEDS: Rocuronium Bromide 50 MG/5 ML VIAL 100 MG IVPUSH (21:00)
--- NOTE | 2023-06-29 21:03 | PC.NURSE ---
Care transfered from this RN to Carol Ann/paolo De La Cruz room change and change of plan of care.
[2023-06-29] MEDS: dexmedeTOMIDidine HCL/NS 400 MCG/100 ML INFUS..BTL 28.6 MCG IVCONT (21:10)
[2023-06-29] MEDS: propofoL 200 MG/20 ML VIAL 50 MG IVPUSH (21:19)
--- NOTE | 2023-06-29 21:22 | ECG_ITS ---
Test Reason : INTUBATION Blood Pressure : / mmHG Vent. Rate : 110 BPM Atrial Rate : 110 BPM P-R Int : 134 ms QRS Dur : 096 ms QT Int : 334 ms P-R-T Axes : 074 030 042 degrees QTc Int : 452 ms Sinus tachycardia Otherwise normal ECG When compared with ECG of 31-MAY-2023 12:34, Vent. rate has increased BY 53 BPM T wave inversion no longer evident in Inferior leads Nonspecific T wave abnormality no longer evident in Anterior leads Referred By: Malissa Pradhan Electronically Signed By:JESSICA HANDY
--- NOTE | 2023-06-29 21:37 | PHA.MEDREC ---
Pharmacy Consult ? Medication Reconciliation Pharmacy has completed the medication reconciliation. Received list from [place]. Mariah Cardenas is currently readjusting medications. Patient report on last visit he takes depakote 1500 mg at bedtime as 500 in the AM and 1000 mg. Haldol TID was prescribe on last visit. Currently patient is activing receieve haldol BID and valopric acid IV 750 mg BID as well lithium was re-initiated per Mariah Carranza. Beatrice Hopper, PharmD
[2023-06-29] MEDS: propofoL 200 MG/20 ML VIAL 100 MG IVPUSH ×2 (21:38→21:58)
[2023-06-29] MEDS: Valproic Acid (as Sodium Salt) 750 MG in Dextrose 5 % 50 ML 57.5 MG IV (21:40)
[2023-06-29] MEDS: propofoL 1,000 MG/100 ML VIAL 20.59 MG IVCONT (21:45)
--- NOTE | 2023-06-29 22:04 | PC.NURSE ---
Pt intubated at 2106 due to inability to keep self and other safe. Pt has been having increasing agitation and is not responding other medication attempts including but not limited to PO and IM Tube: size 7.5, 24 at the lip Medications for Intubation: -20 mg Etomidate -100mg Rocuronium Vent settings: -RR: 16 -Vt: 500 -O2: 80% -Peep: 5.0 IV access: -20g RAC -20g LH OG tube in place, clamped at this time until official xray reading back from radiologist confirming placement. Four point soft restraints on for safety Medications Currently Running: -Precedex running at 1.4 mcg/kg/hr -Propofol running at 30mcg/kg/hr -Valproic Acid 57.5 ml/hr
[2023-06-29 22:36] LABS: Phosphorus 3.6 mg/dL (2.7-4.5)
[2023-06-29] MEDS: dexmedeTOMIDidine HCL/NS 400 MCG/100 ML INFUS..BTL 40.04 MCG IVCONT (23:24)
[2023-06-30] VITALS (29 sets, daily range): BP systolic 88–126; BP diastolic 33–94; PULSE 60–97; RESP 13–29; TEMP 34.4–38; O2SAT 88–100; BMI 33.6
--- NOTE | 2023-06-30 | ECG_ITS ---
Test Reason : QT prolonging drugs Blood Pressure : / mmHG Vent. Rate : 075 BPM Atrial Rate : 075 BPM P-R Int : 150 ms QRS Dur : 094 ms QT Int : 370 ms P-R-T Axes : 057 037 026 degrees QTc Int : 413 ms Normal sinus rhythm Normal ECG No previous ECGs available Referred By: Malissa Pradhan Electronically Signed By:JESSICA HANDY
--- NOTE | 2023-06-30 00:20 | P.HPCC_ITS ---
History of Present Illness Date of Service: 06/29/23 <Malissa Pradhan NP - Last Filed: 06/30/23 01:12> Attending physician on admission: Bill Vogt <Malissa Pradhan NP - Last Filed: 06/30/23 01:12> Chief Complaint: Acute Psychosis <Malissa Pradhan NP - Last Filed: 06/30/23 01:12> Mr. Mcdaniels is a 23-year-old male with a history of schizoaffective disorder, bipolar 1 disorder with moderate giuliana, depression, anxiety who presented to the emergency department requesting inpatient admission into the psychiatric unit. The patient reported that he was recently inpatient psych and he was taken off all of his medications.?? On arrival to the emergency room, the patient's blood pressure was 152/73, heart rate 92, temp 96.7. O2 Sat 98% on room air.. Laboratory data: CBC normal. Chemistry unremarkable. Toxicology negative. Ethanol negative.? Valproic acid 33.8. ED course: The patient was placed into observation while awaiting an inpatient bed search. Over the course of the day the patient became aggressive. Multiple attempts at deescalation were made: he was given multiple doses of olanzapine, lorazepam, midazolam, haloperidol, diphenhydramine and lithium. IV valproic acid was administered as recommended by psychiatry.? He was intubated in the emergency department for safety and psychiatric stabilization.? <Malissa Pradhan NP - Last Filed: 06/30/23 01:12> Review of Systems 2 Review of Systems: Yes unobtainable due to endotracheal tube <Malissa Pradhan NP - Last Filed: 06/30/23 01:12> [facility] Past Medical History Medical History: Medical History Schizoaffective disorder, bipolar type Fibroepithelial polyp No known health problems Bipolar 1 disorder with moderate giuliana Depression Anxiety <Malissa Pradhan NP - Last Filed: 06/30/23 01:12> Family History Family History: Family History Mother Alcohol abuse Mental problem Father Alcohol abuse Mental problem Melanoma <Malissa Pradhan NP - Last Filed: 06/30/23 01:12> Surgical History Surgical History: Surgical History S/P colonoscopy H/O endoscopy <Malissa Pradhan NP - Last Filed: 06/30/23 01:12> Social History Social History: Social History Household Members: Family Household Members Other:: mom and brother Housing: House Do you presently have visiting nurse or other home services: No Alcohol intake: never Comment: none Patient Tobacco Use Status: Never used Tobacco Smoked in Last 30 Days: Yes e-Cigarette/Vaping Use: Never Used Second Hand Smoke Exposure: Yes ( sometimes but not too often ) Use of substances other than those prescribed or required for medical reasons: Unknown Currently Displaying Signs/Symptoms of Drug Intoxication Withdrawal: No Advance Directives: No Advance Directives Information Provided: Yes Healthcare Proxy: No Guardian: No Do you have thoughts of harming others: None Do you have a plan to hurt others: No Plan Nutrition Risks: No Nutritional Risk service: No Current occupational status: disabled Current occupation: Student - [employer] Sexual orientation: Straight/Heterosexual Cognitive needs: No Hearing needs: No Vision needs: No <Malissa Pradhan NP - Last Filed: 06/30/23 01:12> Meds Allergies/Adverse reactions: Allergies Allergy/AdvReac Type Severity Reaction Status Date / Time fluoxetine AdvReac Severe giuliana Verified 06/29/23 07:30 <Malissa Pradhan NP - Last Filed: 06/30/23 01:12> Active Medications: Current Medications Chlorhexidine Gluconate (Chlorhexidine Gluc Oral Rinse 15 Ml Mouthwash) 15 ml BUCCAL TID [facility] Haloperidol (Haloperidol 5 Mg Tablet) 5 mg PO BID [facility] Heparin Sodium (Porcine) (Heparin Sodium,Porcine 5,000 Unit/Ml Vial) 5,000 unit SUBCUT Q8H [facility] Valproic Acid 750 mg/ Dextrose 57.5 mls @ 57.5 mls/hr IV BID [facility] Last Infusion: 06/29/23 22:42 Dose: Infused Dexmedetomidine HCl (Precedex) 400 mcg in 100 mls @ 0 mls/hr IVCONT .Q0M [facility]; Protocol Last Titration: 06/30/23 00:09 Dose: Infused Propofol (Diprivan) 1,000 mg in 100 mls @ 0 mls/hr IVCONT .Q0M YANI; Protocol Last Admin: 06/29/23 21:45 Dose: 30 mcg/kg/min, 20.59 mls/hr Lamotrigine (Lamotrigine 100 Mg Tablet) 100 mg PO BID YANI [place]ley Carbonate (Hadley Carbonate 300 Mg Capsule) 600 mg PO BID YANI <Malissa Pradhan NP - Last Filed: 06/30/23 01:12> Home medications: Home Medications Medication Instructions Recorded Confirmed Last Taken Type ascorbic acid (vitamin C) 1,000 mg 1,000 mg PO BID 07/20/22 06/29/23 05/30/23 10:00 History tablet cholecalciferol (vitamin D3) 50 50 mcg PO DAILY 07/20/22 06/29/23 05/30/23 10:00 History mcg (2,000 unit) tablet cyanocobalamin (vitamin B-12) 1,000 mcg PO DAILY 07/20/22 06/29/23 05/30/23 10:00 History 1,000 mcg tablet (Vitamin B-12) omega-3 fatty acids-fish oil 360 2 cap PO DAILY 07/20/22 06/29/23 05/30/23 10:00 History mg-1,200 mg capsule (Fish Oil) olanzapine 10 mg tablet 10 mg PO BID Psychosis 06/24/23 06/29/23 Unknown History divalproex 500 mg tablet,extended 1,000 mg PO QPM 06/25/23 06/29/23 Unknown History release 24 hr (Depakote ER) divalproex 500 mg tablet,extended 500 mg PO AC 06/25/23 06/29/23 Unknown History release 24 hr (Depakote ER) lorazepam 1 mg PO BEDTIME PRN Anxiety 06/25/23 06/29/23 Unknown History <Malissa Pradhan NP - Last Filed: 06/30/23 01:12> Physical Exam 2 Vital Signs: Vital Signs: Last Vital Signs Temp 100.4 F 06/30/23 00:00 Pulse 78 06/30/23 00:00 Resp 18 06/30/23 00:00 BP 117/46 L 06/30/23 00:00 Pulse Ox 98 06/30/23 00:00 O2 Del Method Mechanical Ventil ation 06/30/23 00:00 FiO2 80 06/29/23 22:09 BMI result Body Mass Index 34.5 <AGUSTINA Contreras Last Filed: 06/30/23 01:12> Const: General: no acute distress <AGUSTINA Contreras Last Filed: 06/30/23 01:12> HEENT: Head: Yes normocephalic and Yes atraumatic <AGUSTINA Contreras Last Filed: 06/30/23 01:12> General nose exam: Normal external nose present (Nares patent, septum midline, sinuses nontender bilaterally.) <AGUSTINA Contreras Last Filed: 06/30/23 01:12> Mouth: Normal oral and palatal mucosa present (tongue in midline, mucosa moist.) <AGUSTINA Contreras Last Filed: 06/30/23 01:12> Neck: Neck: Yes supple (no thyromegaly, trachea midline.) <AGUSTINA Contreras Last Filed: 06/30/23 01:12> Carotids: normal carotid upstroke <AGUSTINA Contreras Last Filed: 06/30/23 01:12> Resp: Auscultation: clear to auscultation bilaterally (normal work of breathing, no accessory muscle use) <AGUSTINA Contreras Last Filed: 06/30/23 01:12> Cardio: Jugular venous distension: no JVD <AGUSTINA Contreras Last Filed: 06/30/23 01:12> Rate: regular rate <AGUSTINA Contreras Last Filed: 06/30/23 01:12> Rhythm: regular rhythm <AGUSTINA Contreras Last Filed: 06/30/23 01:12> Heart sounds: no gallops, no murmurs and no rubs <AGUSTINA Contreras Last Filed: 06/30/23 01:12> Peripheral pulses: Peripheral pulses 2+ throughout <AGUSTINA Contreras Last Filed: 06/30/23 01:12> GI: Palpation (GI): Soft to palpation (nondistended.) and nontender < AGUSTINA Contreras Last Filed: 06/30/23 01:12> Skin: General skin exam: no rashes or lesions noted <Malissa Pradhan NP - Last Filed: 06/30/23 01:12> Extrem: General: Yes full ROM and Yes no clubbing, cyanosis or edema < Malissa Pradhan NP - Last Filed: 06/30/23 01:12> Results Labs CBC and Chem 7: 06/30/23 04:38 06/30/23 04:38 <Malissa Pradhan [employer]AR[employer] P[employer] TE[employer] - Last Filed: 06/30/23 01:12> Labs: Laboratory Results - last 24 hr 06/29/23 06/29/23 06/29/23 08:22 11:00 11:27 MCV 84.5 MCH 28.2 MCHC 33.4 RDW 13.0 Plt Count 222 MPV 11.7 Immature Gran % (Auto) 0.6 H Neut % (Auto) 78.2 H Lymph % (Auto) 14.5 L [place] % (Auto) 5.7 Eos % (Auto) 0.4 Baso % (Auto) 0.6 Lymph # (Auto) 1.6 [place] # (Auto) 0.6 Eos # (Auto) 0.0 Baso # (Auto) 0.1 Abs Immat Gran (auto) 0.07 H Absolute Neuts (auto) 8.4 H Absolute Nucleated RBC 0.000 Nucleated RBC % (auto) 0.0 Anion Gap 13 Estim Creat Clear Calc 192.3 Estimated GFR > 60 Random Glucose 142 H Calcium 8.7 D Phosphorus Magnesium 1.9 Total Bilirubin 0.3 AST 36 ALT 49 H Alkaline Phosphatase 54 Total Protein 6.6 Albumin 3.9 Urine Opiates Screen Not Detected Urine Fentanyl Screen Not Detected Ur Barbiturates Screen Not Detected Valproic Acid 33.8 L Ur Phencyclidine Scrn Not Detected Ur Amphetamines Screen Not Detected U Benzodiazepines Scrn Not Detected Urine Cocaine Screen Not Detected U Marijuana (THC) Screen Not Detected Ethyl Alcohol < 10 06/29/23 22:08 MCV MCH MCHC RDW Plt Count MPV Immature Gran % (Auto) Neut % (Auto) Lymph % (Auto) [place] % (Auto) Eos % (Auto) Baso % (Auto) Lymph # (Auto) [place] # (Auto) Eos # (Auto) Baso # (Auto) Abs Immat Gran (auto) Absolute Neuts (auto) Absolute Nucleated RBC Nucleated RBC % (auto) Anion Gap Estim Creat Clear Calc Estimated GFR Random Glucose Calcium Phosphorus 3.6 Magnesium Total Bilirubin AST ALT Alkaline Phosphatase Total Protein Albumin Urine Opiates Screen Urine Fentanyl Screen Ur Barbiturates Screen Valproic Acid Ur Phencyclidine Scrn Ur Amphetamines Screen U Benzodiazepines Scrn Urine Cocaine Screen U Marijuana (THC) Screen Ethyl Alcohol <Malissa Pradhan NP - Last Filed: 06/30/23 01:12> Imaging Radiologist's Impressions: Impressions Chest X-Ray 06/29/23 21:22 IMPRESSION: Endotracheal tube tip 7.5 cm above the liz. Nasogastric tube tip projects over proximal stomach. No central line seen. <Malissa Pradhan NP - Last Filed: 06/30/23 01:12> Assessment and Plan (1) Acute psychosis: Status: Acute <Malissa Pradhan NP - Last Filed: 06/30/23 01:12> 23-year-old male with a history of schizoaffective disorder, bipolar 1 disorder with moderate giuliana, depression, anxiety intubated for safety and psychiatric stabilization.? Plan: Neuro: No acute issues. Cardiac:? No acute issues. Pulmonary: No acute issues. Renal: No acute issues. Endo: No acute issues. GI: No acute issues. ID: No acute issues. Heme/Onc: No acute issues. Psych: Acute psychosis. Valproic acid given in ED. Lamictal 100 mg BID. Appreciate input from psychiatry. Prophylaxis:? Heparin, Pneumatic hoses. Diet:? NPO <Malissa Pradhan NP - Last Filed: 06/30/23 01:12> 23-year-old male with a history of schizoaffective disorder, bipolar 1 disorder with moderate giuliana, depression, anxiety intubated for safety and psychiatric stabilization.? Plan: Neuro: No acute issues. Cardiac:? No acute issues. Pulmonary: Intubated in the emergency room for airway protection secondary to high sedation requirements Renal: No acute issues. Endo: No acute issues. GI: No acute issues. ID: No acute issues. Heme/Onc: No acute issues. Psych: Acute psychosis. Valproic acid given in ED. Lamictal 100 mg BID. Appreciate input from psychiatry. Prophylaxis:? Heparin, Pneumatic hoses. Diet:? NPO <Bill Vogt MD - Last Filed: 06/30/23 11:10> Total time managing care of this patient today: 75 minutes. <Malissa Pradhan [employer] P[employer] - Last Filed: 06/30/23 01:12>
--- NOTE | 2023-06-30 00:25 | PC.NURSE ---
Report given to Siva RN, pt transported to room 252 by T/W, divorce mediator and respiratory.
[2023-06-30] MEDS: HaloperidoL 5 MG TABLET PO ×2 (00:46→08:47)
[2023-06-30] MEDS: Heparin Sodium,Porcine 5,000 UNIT/ML VIAL 5000 UNIT SUBCUT ×4 (00:46→20:00)
[2023-06-30] MEDS: Chlorhexidine Gluc Oral Rinse 15 ML MOUTHWASH BUCCAL ×2 (00:46→08:49)
[2023-06-30] MEDS: propofoL 1,000 MG/100 ML VIAL 20.59 MG IVCONT (00:51)
[2023-06-30] MEDS: lamoTRIgine 100 MG TABLET PO ×2 (00:53→08:47)
[2023-06-30 01:04] LABS: VBG Base Excess 2.8 mmol/L; VBG HCO3 25 mmol/L (22-26); VBG pCO2 33 mmHg; VBG pH 7.48 (7.32-7.43); VBG pO2 98 mmHg
[2023-06-30 01:11] LABS: Basophils Absolute Auto 0.1 X10*3/uL (0.0-0.2); Basophils Percent Auto 0.4 % (0-2); Eosinophils Absolute Auto 0.1 X10*3/uL (0.0-0.4); Eosinophils Percent Auto 0.8 % (0-4); Hematocrit 42.2 % (42.0-52.0); Imm Gran Abs Auto 0.04 X10*3/uL (0.00-0.03); Imm Gran Pct Auto 0.2 % (0.0-0.4); Lymphocytes Absolute Auto 2.2 X10*3/uL (1.2-4.9); Lymphocytes Percent Auto 12.9 % (20-40); MANUAL DIFF FLAG SCAN; Mean Corpuscular HGB Conc 33.2 g/dl (31.0-36.0); Mean Corpuscular Hemoglobin 28.5 pg (27.0-33.0); Mean Corpuscular Volume 85.8 fL (80.0-98.0); Mean Platelet Volume 11.6 fL (9.4-12.4); Monocytes Absolute Auto 1.6 X10*3/uL (0.1-1.2); Monocytes Percent Auto 9.3 % (2-11); Neutrophils Absolute Auto 12.9 x10*3/uL (2.0-8.3); Neutrophils Percent Auto 76.4 % (45-73); Platelet Count 223 X10*3/uL (160-400); Red Blood Count 4.92 X10*6/uL (4.60-5.80); Red Cell Distribution Width 13.2 % (11.0-16.0); SCAN SMEAR FLAG 1; White Blood Count 16.9 X10*3/uL (4.8-10.8)
[2023-06-30 01:15] LABS: SLIDE REVIEW VERIFIED
[2023-06-30] MEDS: Lithium Carbonate 300 MG CAPSULE 600 MG PO (01:16)
[2023-06-30 01:34] LABS: Anion Gap 13 (12-20); Blood Urea Nitrogen 12 mg/dL (9-16); Calcium 8.8 mg/dL (8.4-10.2); Carbon Dioxide 24 mmol/L (22-29); Chloride 109 mmol/L (96-108); Estimated Glomerular Filt Rate > 60; Glucose Random 104 mg/dL (60-115); Magnesium 2.1 mg/dL (1.6-2.6); Phosphorus 3.5 mg/dL (2.7-4.5); Potassium 4.6 mmol/L (3.3-5.1); Sodium 141 mmol/L (135-145)
[2023-06-30 04:51] LABS: VBG Base Excess 0.6 mmol/L; VBG HCO3 24 mmol/L (22-26); VBG pCO2 35 mmHg; VBG pH 7.44 (7.32-7.43); VBG pO2 92 mmHg
[2023-06-30 05:21] LABS: MANUAL DIFF FLAG NO
[2023-06-30 05:25] LABS: Basophils Absolute Auto 0.1 X10*3/uL (0.0-0.2); Basophils Percent Auto 0.4 % (0-2); Eosinophils Absolute Auto 0.2 X10*3/uL (0.0-0.4); Eosinophils Percent Auto 1.4 % (0-4); Hematocrit 42.2 % (42.0-52.0); Hemoglobin 13.9 g/dl (14.0-18.0); Imm Gran Abs Auto 0.07 X10*3/uL (0.00-0.03); Imm Gran Pct Auto 0.5 % (0.0-0.4); Lymphocytes Percent Auto 13.7 % (20-40); Mean Corpuscular HGB Conc 32.9 g/dl (31.0-36.0); Mean Corpuscular Hemoglobin 28.9 pg (27.0-33.0); Mean Corpuscular Volume 87.7 fL (80.0-98.0); Mean Platelet Volume 11.9 fL (9.4-12.4); Monocytes Absolute Auto 1.5 X10*3/uL (0.1-1.2); Monocytes Percent Auto 10.4 % (2-11); Neutrophils Absolute Auto 10.5 x10*3/uL (2.0-8.3); Neutrophils Percent Auto 73.6 % (45-73); Platelet Count 240 X10*3/uL (160-400); Red Blood Count 4.81 X10*6/uL (4.60-5.80); Red Cell Distribution Width 13.2 % (11.0-16.0); White Blood Count 14.3 X10*3/uL (4.8-10.8)
[2023-06-30 05:47] LABS: Albumin Level 3.9 g/dL (3.5-5.0); Anion Gap 11 (12-20); Blood Urea Nitrogen 14 mg/dL (9-16); Calcium 9.2 mg/dL (8.4-10.2); Carbon Dioxide 23 mmol/L (22-29); Chloride 109 mmol/L (96-108); Creatinine Clr Calc Pharmacy 173.4; Estimated Glomerular Filt Rate > 60; Glucose Random 98 mg/dL (60-115); Magnesium 2.3 mg/dL (1.6-2.6); Potassium 4.3 mmol/L (3.3-5.1); Sodium 139 mmol/L (135-145)
[2023-06-30 05:51] LABS: Valproate 58.3 mcg/mL (50.0-100.0)
[2023-06-30] MEDS: propofoL 1,000 MG/100 ML VIAL 13.73 MG IVCONT (06:03)
--- NOTE | 2023-06-30 06:27 | PC.NURSE ---
Pt admitted to ICU at approx 0015. Upon inital assessment- pt sedated on propofol/precedex, RASS -5, precedex turned off per WIRE TESTER Lorne. Attempts to wean propofol met with vent asynchrony and agitation. Tmax 100.4 via core bladder probe. NSR on tele, HR 60-70s. SBP > 90, MAP 60-65, WIRE TESTER aware. ETT #7.5, 24 cm at lip. On AC settings. OGT clamped. Urinary catheter in place, UOP approx 5-10 mL/hr, WIRE TESTER aware. Skin overall intact. Repositioned in bed q2hr. Bed locked in low position.
[2023-06-30 07:18] LABS: Venous Blood Gas Refer to POC result
[2023-06-30 07:18] LABS: Venous Blood Gas Refer to POC result
[2023-06-30] MEDS: Valproic Acid (as Sodium Salt) 750 MG in Dextrose 5 % 50 ML 57.5 MG IV ×2 (08:48→20:01)
[2023-06-30] MEDS: Lithium Carbonate 300 MG TABLET 600 MG PO ×2 (08:52→19:59)
[2023-06-30] MEDS: dexmedeTOMIDidine HCL/NS 400 MCG/100 ML INFUS..BTL 28.6 MCG IVCONT (09:21)
--- NOTE | 2023-06-30 10:14 | MHC.CM.PN ---
IMM ADDRESSED WITH MOTHER VIA TELEPHONE. MOTHER REQUESTS COPY BE LEFT AT BEDSIDE. PT REMAINS INTUBATED AND SEDATED IN ICU. CM SPOKE WITH MOTHER VIA TELEPHONE. MOTHER UPSET, YELLING/AGITATED. UNABLE TO OBTAIN INFORMATION RGARDING PT. SUPPORT OFFERED. CM WILL CONTINUE TO FOLLOW FOR DC PLAN/NEEDS.
--- NOTE | 2023-06-30 11:11 | P.PNCC_ITS ---
Subjective Subjective Date of Service: 06/30/23 Interval History: 23-year-old gentleman with underlying history of bipolar and schizoaffective disorders with reason psychiatric hospitalization admitted on 06/29/2023 with acute psychotic decompensation requiring high-dose sedatives and intubation for airway protection. No events overnight.No events overnight. Critical Care Time (minutes): 60 Physical Exam 2 Vital Signs: Vital Signs: Last Vital Signs Temp 98.8 F 06/30/23 11:00 Pulse 60 06/30/23 11:00 Resp 17 06/30/23 11:00 BP 107/43 L 06/30/23 11:00 Pulse Ox 100 06/30/23 11:00 O2 Del Method Mechanical Ventil ation 06/30/23 11:00 FiO2 40 06/30/23 11:00 BMI result Body Mass Index 33.6 Const: General: no acute distress and other (sedated on the vent) Eyes: Sclerae: sclerae normal EOM: EOMs intact bilaterally Neck: Neck: Yes no lymphadenopathy, Yes trachea midline and Yes supple Resp: Effort & Inspection: normal respiratory effort and no respiratory distress Auscultation: clear to auscultation bilaterally Cardio: Rate: regular rate Rhythm: regular rhythm Heart sounds: no gallops, no murmurs and no rubs GI: Palpation (GI): Soft to palpation and Other GI palpation findings present ( Nontender) Auscultation: normal bowel sounds Extrem: General: Yes no pedal edema, No clubbing and No cyanosis Objective Data Labs 06/30/23 04:38 06/30/23 04:38 Labs: Laboratory Results - last 24 hr 06/29/23 06/29/23 06/29/23 11:00 11:27 22:08 WBC RBC Hgb Hct MCV MCH MCHC RDW Plt Count MPV Immature Gran % (Auto) Neut % (Auto) Lymph % (Auto) [place] % (Auto) Eos % (Auto) Baso % (Auto) Lymph # (Auto) [place] # (Auto) Eos # (Auto) Baso # (Auto) Abs Immat Gran (auto) Absolute Neuts (auto) Absolute Nucleated RBC Nucleated RBC % (auto) Smear Tech's Comments VBG pH VBG pCO2 VBG pO2 VBG HCO3 VBG O2 Saturation VBG Base Excess Sodium 140 Potassium 4.1 Chloride 108 Carbon Dioxide 23 Anion Gap 13 BUN 14 Creatinine 0.77 Estim Creat Clear Calc 192.3 Estimated GFR > 60 Random Glucose 142 H Calcium 8.7 D Phosphorus 3.6 Magnesium 1.9 Total Bilirubin 0.3 AST 36 ALT 49 H Alkaline Phosphatase 54 Total Protein 6.6 Albumin 3.9 Valproic Acid 33.8 L Ethyl Alcohol < 10 06/30/23 06/30/23 06/30/23 00:56 00:57 04:38 WBC 16.9 H 14.3 H RBC 4.92 4.81 Hgb 14.0 13.9 L Hct 42.2 42.2 MCV 85.8 87.7 MCH 28.5 28.9 MCHC 33.2 32.9 RDW 13.2 13.2 Plt Count 223 240 MPV 11.6 11.9 Immature Gran % (Auto) 0.2 0.5 H Neut % (Auto) 76.4 H 73.6 H Lymph % (Auto) 12.9 L 13.7 L [place] % (Auto) 9.3 10.4 Eos % (Auto) 0.8 1.4 Baso % (Auto) 0.4 0.4 Lymph # (Auto) 2.2 2.0 [place] # (Auto) 1.6 H 1.5 H Eos # (Auto) 0.1 0.2 Baso # (Auto) 0.1 0.1 Abs Immat Gran (auto) 0.04 H 0.07 H Absolute Neuts (auto) 12.9 H 10.5 H Absolute Nucleated RBC 0.000 0.000 Nucleated RBC % (auto) 0.0 0.0 Smear Tech's Comments VERIFIED VBG pH 7.48 H VBG pCO2 33 VBG pO2 98 VBG HCO3 25 VBG O2 Saturation 100.0 VBG Base Excess 2.8 Sodium 141 139 Potassium 4.6 4.3 Chloride 109 H 109 H Carbon Dioxide 24 23 Anion Gap 13 11 L BUN 12 14 Creatinine 0.78 0.85 Estim Creat Clear Calc 189.0 173.4 Estimated GFR > 60 > 60 Random Glucose 104 98 Calcium 8.8 9.2 Phosphorus 3.5 Magnesium 2.1 2.3 Total Bilirubin AST ALT Alkaline Phosphatase Total Protein Albumin 3.9 Valproic Acid 58.3 Ethyl Alcohol 06/30/23 04:44 WBC RBC Hgb Hct MCV MCH MCHC RDW Plt Count MPV Immature Gran % (Auto) Neut % (Auto) Lymph % (Auto) [place] % (Auto) Eos % (Auto) Baso % (Auto) Lymph # (Auto) [place] # (Auto) Eos # (Auto) Baso # (Auto) Abs Immat Gran (auto) Absolute Neuts (auto) Absolute Nucleated RBC Nucleated RBC % (auto) Smear Tech's Comments VBG pH 7.44 H VBG pCO2 35 VBG pO2 92 VBG HCO3 24 VBG O2 Saturation 99.0 VBG Base Excess 0.6 Sodium Potassium Chloride Carbon Dioxide Anion Gap BUN Creatinine Estim Creat Clear Calc Estimated GFR Random Glucose Calcium Phosphorus Magnesium Total Bilirubin AST ALT Alkaline Phosphatase Total Protein Albumin Valproic Acid Ethyl Alcohol Progress Note: A&P Assessment and plan (1) Acute psychosis: Status: Acute (2) Schizoaffective disorder, bipolar type: Status: Acute (3) Acute respiratory failure: Status: Acute Plan 23-year-old gentleman with underlying history of bipolar and schizoaffective disorders with reason psychiatric hospitalization admitted on 06/29/2023 with acute psychotic decompensation requiring high-dose sedatives and intubation for airway protection. Assessment: 23-year-old gentleman admitted with an acute psychotic episode requiring intubation for airway protection on the background of utilization of high-dose sedatives Plan: Neuro: No acute issues. Cardiac: No acute issues. Pulmonary: Intubated for airway protection, continue to titrate off ventilatory support as tolerated. Renal: No acute issues. Endo: No acute issues. GI: No acute issues. ID: No acute issues Heme/Onc: No acute issues. Psych: Acute psychotic episode. Psychiatry service care appreciated. Continue Lamictal, Depakote, lithium, and Haldol. Miscellaneous: No acute issues. Prophylaxis: Heparin, ppi Diet: NPO Critical care time spent: 60 minutes Quality Stroke Does the patient have a stroke diagnosis?: No VTE Prior VTE?: No VTE Risk Level:: Medical - moderate - high VTE Device Contraindication: N/A - Device Ordered VTE Drug Contraindication: N/A - Med Ordered
[2023-06-30] MEDS: dexmedeTOMIDidine HCL/NS 400 MCG/100 ML INFUS..BTL 17.16 MCG IVCONT (12:14)
--- NOTE | 2023-06-30 12:25 | PC.NURSE ---
Assumed care at 0700. Patient Mechanically vented-tolerating AC settings, 02 sat maintaining >95%. Sedated on propofol gtt titrated per EMAR. On assessment patient opens eyes, tracks, follows commands, Nods Y/N to questions, MARR, +cough/+gag/+pain response. Pt. in soft wrist restraints for safety-see paper chart. Pt. restless, thrashing UE/LE in bed, sitting up and attempting to reach for ETT, F/C, and IVs-Propofol titrated per EMAR to maintain RASS -2 to -4 per MD order. Per MD precedex gtt started and propofol gtt titrated off (see EMAR for exact titrations). Pt. arousable to name, tracks, and follow commands. Vent settings changed by MD to PSV 5/5 40% at 1145. Security called to unit to be on standby for patient and staff safety. Pt. extubated per MD order by RT at 1200. Pt on RA, O2 sat maintaining >93%. Soft wrist restraints removed. Mother at bedside, updated by this RN, air antisubmarine officer, and psychiatric providers. Current VS HR 62, RR 20, BP 108/44 MAP 71, O2 97%. Q2 turns and oral care performed, plan of care ongoing.
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
[2023-06-30] MEDS: Simethicone 80 MG TAB.CHEW PO (19:42)
[2023-06-30] MEDS: polyethylene glycoL 3350 17 GM POWD.PACK PO (19:42)
[2023-06-30] MEDS: lamoTRIgine 25 MG TABLET PO (19:59)
[2023-06-30] MEDS: HaloperidoL 5 MG TABLET 10 MG PO (19:59)
[2023-06-30] MEDS: clonazePAM 1 MG TABLET PO (19:59)
[2023-06-30] MEDS: dexmedeTOMIDidine HCL/NS 400 MCG/100 ML INFUS..BTL 11.44 MCG IVCONT (21:23)
[2023-07-01] VITALS (24 sets, daily range): BP systolic 107–142; BP diastolic 30–70; PULSE 61–108; RESP 18–30; TEMP 36.2–37.4; O2SAT 92–100; BMI 33.8
[2023-07-01] MEDS: dexmedeTOMIDidine HCL/NS 400 MCG/100 ML INFUS..BTL 17.16 MCG IVCONT (04:38)
[2023-07-01 05:00] LABS: VBG Base Excess 1.1 mmol/L; VBG HCO3 22 mmol/L (22-26); VBG pCO2 27 mmHg; VBG pH 7.52 (7.32-7.43); VBG pO2 183 mmHg
[2023-07-01 05:10] LABS: Venous Blood Gas Refer to POC result
[2023-07-01 05:10] LABS: MANUAL DIFF FLAG NO
[2023-07-01 05:11] LABS: Basophils Percent Auto 0.3 % (0-2); Eosinophils Absolute Auto 0.3 X10*3/uL (0.0-0.4); Eosinophils Percent Auto 2.6 % (0-4); Hematocrit 43.3 % (42.0-52.0); Hemoglobin 14.2 g/dl (14.0-18.0); Imm Gran Abs Auto 0.05 X10*3/uL (0.00-0.03); Imm Gran Pct Auto 0.5 % (0.0-0.4); Lymphocytes Absolute Auto 1.9 X10*3/uL (1.2-4.9); Lymphocytes Percent Auto 17.9 % (20-40); Mean Corpuscular HGB Conc 32.8 g/dl (31.0-36.0); Mean Corpuscular Hemoglobin 28.1 pg (27.0-33.0); Mean Corpuscular Volume 85.6 fL (80.0-98.0); Mean Platelet Volume 11.6 fL (9.4-12.4); Monocytes Absolute Auto 1.2 X10*3/uL (0.1-1.2); Monocytes Percent Auto 11.5 % (2-11); Neutrophils Absolute Auto 7.1 x10*3/uL (2.0-8.3); Neutrophils Percent Auto 67.2 % (45-73); Platelet Count 213 X10*3/uL (160-400); Red Blood Count 5.06 X10*6/uL (4.60-5.80); White Blood Count 10.6 X10*3/uL (4.8-10.8)
[2023-07-01 05:22] LABS: Lithium 0.58 mmol/L (0.60-1.20)
[2023-07-01 05:26] LABS: Ammonia 91 umol/L (13-55)
[2023-07-01 05:27] LABS: Alanine Aminotransferase 31 U/L (0-40); Albumin Level 3.7 g/dL (3.5-5.0); Alkaline Phosphatase 49 U/L (39-117); Anion Gap 11 (12-20); Aspartate Amino Transferase 19 U/L (5-37); Bilirubin Total 0.3 mg/dL (0.0-1.0); Blood Urea Nitrogen 13 mg/dL (9-16); Calcium 8.9 mg/dL (8.4-10.2); Carbon Dioxide 22 mmol/L (22-29); Chloride 109 mmol/L (96-108); Creatinine Clr Calc Pharmacy 208.9; Estimated Glomerular Filt Rate > 60; Glucose Random 98 mg/dL (60-115); Magnesium 2.3 mg/dL (1.6-2.6); Phosphorus 2.7 mg/dL (2.7-4.5); Potassium 4.3 mmol/L (3.3-5.1); Sodium 138 mmol/L (135-145); Total Protein 6.5 g/dL (6.5-8.0); Valproate 50.7 mcg/mL (50.0-100.0)
[2023-07-01] MEDS: Valproic Acid (as Sodium Salt) 750 MG in Dextrose 5 % 50 ML 57.2 MG IV (08:25)
[2023-07-01] MEDS: lamoTRIgine 25 MG TABLET PO ×2 (08:25→20:04)
[2023-07-01] MEDS: Lithium Carbonate 300 MG TABLET 600 MG PO ×2 (08:26→20:04)
[2023-07-01] MEDS: HaloperidoL 5 MG TABLET 10 MG PO ×2 (08:36→20:04)
[2023-07-01] MEDS: clonazePAM 1 MG TABLET PO ×2 (08:36→20:04)
--- NOTE | 2023-07-01 09:36 | PM.CCPN ---
Subjective Subjective Date of Service: 07/01/23 Interval History: 23-year-old gentleman with underlying history of bipolar and schizoaffective disorders with reason psychiatric hospitalization admitted on 06/29/2023 with acute psychotic decompensation requiring high-dose sedatives and intubation for airway protection. Extubated 06/30/2023. No events overnight. On and off Precedex drip overnight. Critical Care Time (minutes): 0 Physical Exam Vital Signs: Vital Signs: Last Vital Signs Temp 97.1 F 07/01/23 08:00 Pulse 75 07/01/23 09:00 Resp 21 H 07/01/23 09:00 BP 112/43 L 07/01/23 09:00 Pulse Ox 94 07/01/23 09:00 O2 Del Method Room Air 07/01/23 09:00 FiO2 40 06/30/23 12:00 BMI result Body Mass Index 33.8 Const: General: no acute distress, alert and awake Eyes: Sclerae: sclerae normal EOM: EOMs intact bilaterally Neck: Neck: Yes no lymphadenopathy, Yes trachea midline and Yes supple Resp: Effort & Inspection: normal respiratory effort and no respiratory distress Auscultation: clear to auscultation bilaterally Cardio: Rate: regular rate Rhythm: regular rhythm Heart sounds: no gallops, no murmurs and no rubs GI: Palpation (GI): Soft to palpation and Other GI palpation findings present ( Nontender) Auscultation: normal bowel sounds Extrem: General: Yes no pedal edema, No clubbing and No cyanosis Objective Data Labs 07/01/23 05:02 07/01/23 04:45 Labs: Laboratory Results - last 24 hr 07/01/23 07/01/23 07/01/23 04:45 04:53 05:02 WBC 10.6 RBC 5.06 Hgb 14.2 Hct 43.3 MCV 85.6 MCH 28.1 MCHC 32.8 RDW 13.0 Plt Count 213 MPV 11.6 Immature Gran % (Auto) 0.5 H Neut % (Auto) 67.2 Lymph % (Auto) 17.9 L [place] % (Auto) 11.5 H Eos % (Auto) 2.6 Baso % (Auto) 0.3 Lymph # (Auto) 1.9 [place] # (Auto) 1.2 Eos # (Auto) 0.3 Baso # (Auto) 0.0 Abs Immat Gran (auto) 0.05 H Absolute Neuts (auto) 7.1 Absolute Nucleated RBC 0.000 Nucleated RBC % (auto) 0.0 VBG pH 7.52 H VBG pCO2 27 VBG pO2 183 VBG HCO3 22 VBG O2 Saturation 100.0 VBG Base Excess 1.1 Sodium 138 Potassium 4.3 Chloride 109 H Carbon Dioxide 22 Anion Gap 11 L BUN 13 Creatinine 0.70 Estim Creat Clear Calc 208.9 Estimated GFR > 60 Random Glucose 98 Calcium 8.9 Phosphorus 2.7 Magnesium 2.3 Total Bilirubin 0.3 AST 19 ALT 31 Alkaline Phosphatase 49 Ammonia 91 H Total Protein 6.5 Albumin 3.7 Valproic Acid 50.7 Mustang 0.58 L Progress Note: A&P Assessment and plan (1) Acute psychosis: Status: Acute (2) Schizoaffective disorder, bipolar type: Status: Acute Plan 23-year-old gentleman with underlying history of bipolar and schizoaffective disorders with reason psychiatric hospitalization admitted on 06/29/2023 with acute psychotic decompensation requiring high-dose sedatives and intubation for airway protection. Assessment: 23-year-old gentleman admitted with an acute psychotic episode requiring intubation for airway protection on the background of utilization of high-dose sedatives Plan: Neuro: No acute issues. Cardiac: No acute issues. Pulmonary: Intubated for airway protection. Extubated 06/30/2023. Renal: No acute issues. Endo: No acute issues. GI: No acute issues. ID: No acute issues Heme/Onc: No acute issues. Psych: Acute psychotic episode. Psychiatry service care appreciated. Continue Lamictal, Depakote, lithium, Klonopin, and Haldol. Titrate off Precedex drip as tolerated. Miscellaneous: No acute issues. Prophylaxis: Heparin Diet: Regular Quality Stroke Does the patient have a stroke diagnosis?: No VTE Prior VTE?: No VTE Risk Level:: Medical - moderate - high VTE Device Contraindication: N/A - Device Ordered VTE Drug Contraindication: N/A - Med Ordered
--- NOTE | 2023-07-01 09:40 | MHC.CM.PN ---
Met w/pt and his mother to review d/c planning needs: pt states he resides w/mother, has no services or DME and is established w/outpt MH services. PCP is Brian Collins. Mother to transport pt to home, assisted pt w/HCP completion: copies given. Pt may need INPT Psych care and will be followed accordingly: Plans for today include continued stabilization and transfer to Medical floor. No CM needs identified.
[2023-07-01] MEDS: Throat Lozenge, Medicated LOZENGE 1 LOZENGE MUCOUS MEM (10:28)
[2023-07-01] MEDS: OLANZapine ODT 10 MG TAB.RAPDIS TRANSLINGU ×3 (12:03→22:08)
[2023-07-01] MEDS: Heparin Sodium,Porcine 5,000 UNIT/ML VIAL 5000 UNIT SUBCUT ×2 (15:07→20:05)
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
[2023-07-01] MEDS: Lactulose 20 GM/30 ML SOLUTION 30 GM PO (16:23)
[2023-07-01] MEDS: Acetaminophen 325 MG TABLET 650 MG PO (19:27)
[2023-07-01] MEDS: diphenhydrAMINE HCL 25 MG CAPSULE 50 MG PO (20:04)
[2023-07-01] MEDS: Valproic Acid (as Sodium Salt) 750 MG in Dextrose 5 % 50 ML 57.5 MG IV (20:06)
[2023-07-01] MEDS: Calcium Carbonate 750 MG TAB.CHEW PO (21:38)
[2023-07-02] VITALS (14 sets, daily range): BP systolic 136–160; BP diastolic 51–79; PULSE 77–101; RESP 13–25; TEMP 36.6–37; O2SAT 95–98; BMI 33.8
[2023-07-02] MEDS: Acetaminophen 325 MG TABLET 650 MG PO ×2 (03:29→12:29)
[2023-07-02] MEDS: OLANZapine ODT 10 MG TAB.RAPDIS TRANSLINGU ×2 (03:51→09:17)
[2023-07-02 04:45] LABS: Basophils Percent Auto 0.3 % (0-2); Eosinophils Absolute Auto 0.3 X10*3/uL (0.0-0.4); Eosinophils Percent Auto 2.4 % (0-4); Hematocrit 42.3 % (42.0-52.0); Imm Gran Abs Auto 0.06 X10*3/uL (0.00-0.03); Imm Gran Pct Auto 0.5 % (0.0-0.4); Lymphocytes Percent Auto 17.7 % (20-40); MANUAL DIFF FLAG SCAN; Mean Corpuscular HGB Conc 33.1 g/dl (31.0-36.0); Mean Corpuscular Hemoglobin 28.7 pg (27.0-33.0); Mean Corpuscular Volume 86.9 fL (80.0-98.0); Mean Platelet Volume 11.6 fL (9.4-12.4); Monocytes Absolute Auto 1.5 X10*3/uL (0.1-1.2); Monocytes Percent Auto 13.2 % (2-11); Neutrophils Absolute Auto 7.6 x10*3/uL (2.0-8.3); Neutrophils Percent Auto 65.9 % (45-73); Platelet Count 214 X10*3/uL (160-400); Red Blood Count 4.87 X10*6/uL (4.60-5.80); SCAN SMEAR FLAG 1; White Blood Count 11.5 X10*3/uL (4.8-10.8)
[2023-07-02 05:00] LABS: Alanine Aminotransferase 27 U/L (0-40); Albumin Level 3.8 g/dL (3.5-5.0); Alkaline Phosphatase 54 U/L (39-117); Anion Gap 13 (12-20); Aspartate Amino Transferase 15 U/L (5-37); Bilirubin Total 0.2 mg/dL (0.0-1.0); Blood Urea Nitrogen 11 mg/dL (9-16); Calcium 9.4 mg/dL (8.4-10.2); Carbon Dioxide 22 mmol/L (22-29); Chloride 108 mmol/L (96-108); Creatinine Clr Calc Pharmacy 215.6; Estimated Glomerular Filt Rate > 60; Glucose Random 102 mg/dL (60-115); Sodium 139 mmol/L (135-145); Total Protein 6.7 g/dL (6.5-8.0)
[2023-07-02 05:04] LABS: SLIDE REVIEW VERIFIED
[2023-07-02] MEDS: Heparin Sodium,Porcine 5,000 UNIT/ML VIAL 5000 UNIT SUBCUT (05:54)
[2023-07-02] MEDS: clonazePAM 1 MG TABLET PO (06:37)
[2023-07-02] MEDS: HaloperidoL 5 MG TABLET 10 MG PO (08:40)
[2023-07-02] MEDS: Lithium Carbonate 300 MG TABLET 600 MG PO (08:40)
[2023-07-02] MEDS: lamoTRIgine 25 MG TABLET PO (08:40)
--- NOTE | 2023-07-02 11:28 | P.DS_ITS ---
DS: Providers Provider Date of Service: 07/02/23 Date of admission: 06/29/23 21:25 Primary care physician: Brian Collins PA-C Consults: 06/29/23 07:48 Consult to Care Team Routine Comment: Reason for consultation: giuliana DS: Transfer Hospital Acceptance Reason for Transfer: Acute psychosis Name of Facility: [facility] inpatient psychiatry. DS: Diagnosis Discharge Diagnosis (1) Schizoaffective disorder, bipolar type: Status: Acute DS: Summary Hospital Course Hospital Course: 23-year-old gentleman with underlying history of bipolar and schizoaffective disorders with [facility] psychiatric hospitalization admitted on 06/29/2023 with ac vipin psychotic decompensation requiring high-dose sedatives and intubation for airway protection. Extubated 06/30/2023. Titrated off Precedex drip on 07/01/2023. Evaluated by Psychiatry and requires inpatient psychiatric admission. Time Attestation Discharge coordination time: Less than 30 minutes Quality: Safe Use of Opioids Does Pt have an Active Cancer Diagnosis on the Problem List?: No Quality: Stroke Does the patient have a stroke diagnosis?: No Physical Exam Vital Signs: Vital Signs: Last Vital Signs Temp 98.6 F 07/02/23 10:00 Pulse 84 07/02/23 11:00 Resp 20 07/02/23 11:00 BP 154/78 H 07/02/23 11:00 Pulse Ox 95 07/02/23 11:00 O2 Del Method Room Air 07/02/23 11:00 FiO2 40 06/30/23 12:00 BMI result Body Mass Index 33.8 Const: General: no acute distress, alert and awake Eyes: Sclerae: sclerae normal EOM: EOMs intact bilaterally Neck: Neck: Yes no lymphadenopathy, Yes trachea midline and Yes supple Resp: Effort & Inspection: normal respiratory effort and no respiratory distress Auscultation: clear to auscultation bilaterally Cardio: Rate: regular rate Rhythm: regular rhythm Heart sounds: no gallops, no murmurs and no rubs GI: Palpation (GI): Soft to palpation and Other GI palpation findings present ( Nontender) Auscultation: normal bowel sounds Extrem: General: Yes no pedal edema, No clubbing and No cyanosis DS: Data Data Completed and Pending Labs on day of discharge: Laboratory Results - last 24 hr 07/02/23 04:30 WBC 11.5 H RBC 4.87 Hgb 14.0 Hct 42.3 MCV 86.9 MCH 28.7 MCHC 33.1 RDW 13.0 Plt Count 214 MPV 11.6 Immature Gran % (Auto) 0.5 H Neut % (Auto) 65.9 Lymph % (Auto) 17.7 L [place] % (Auto) 13.2 H Eos % (Auto) 2.4 Baso % (Auto) 0.3 Lymph # (Auto) 2.0 [place] # (Auto) 1.5 H Eos # (Auto) 0.3 Baso # (Auto) 0.0 Abs Immat Gran (auto) 0.06 H Absolute Neuts (auto) 7.6 Absolute Nucleated RBC 0.000 Nucleated RBC % (auto) 0.0 Smear Tech's Comments VERIFIED Sodium 139 Potassium 4.0 Chloride 108 Carbon Dioxide 22 Anion Gap 13 BUN 11 Creatinine 0.68 Estim Creat Clear Calc 215.6 Estimated GFR > 60 Random Glucose 102 Calcium 9.4 Total Bilirubin 0.2 AST 15 ALT 27 Alkaline Phosphatase 54 Total Protein 6.7 Albumin 3.8 Discharge Plan Discharge Anticipated Discharge Date/Time: 07/02/23 11:19 Patient Disposition: Xfer Psychiatric Hosp Referrals: Brian Collins PA-C [Primary Care Provider] - 1 Week Discharge Medications: Continued olanzapine 10 mg tablet 10 mg PO BID divalproex [Depakote ER] 500 mg Tablet Extended Release 24 Hr 500 mg PO AC lorazepam 1 mg PO BEDTIME PRN (Reason: Anxiety) divalproex [Depakote ER] 500 mg Tablet Extended Release 24 Hr 1,000 mg PO QPM haloperidol 5 mg tablet 5 mg PO TID Qty: 90 0RF Discontinued cholecalciferol (vitamin D3) 50 mcg (2,000 unit) tablet 50 mcg PO DAILY cyanocobalamin (vitamin B-12) [Vitamin B-12] 1,000 mcg tablet 1,000 mcg PO DAILY omega-3 fatty acids-fish oil [Fish Oil] 360-1,200 mg capsule 2 cap PO DAILY ascorbic acid (vitamin C) 1,000 mg tablet 1,000 mg PO BID Discharge Orders: Discharge Order (Routine); Ordered 07/02/23 Ordered By: Bill Vogt Diet: Regular diet Activity on Discharge: As tolerated Stand Alone Forms: Patient Portal Discharge page
--- NOTE | 2023-07-02 11:46 | MHC.CARE ---
Pt was assessed by the CARE Team and disposition is IPLOC
[2023-07-02 11:56] LABS: Ammonia 71 umol/L (13-55)
[2023-07-02 12:12] LABS: IDNOW Serial# 152EDE1D
[2023-07-02 12:13] LABS: COVID-19 Test Negative (Negative)
== END 2023-07-02 14:30 | DRG 885 ==
LOC: HO.ED 21:28 → HO.EDOVER 21:48 → HO.ICU 23:28
PROVIDERS: Physician Assistant; Psychiatry & Neurology Psychiatry; Social Worker; Admitting Provider Nurse Practitioner Family; Emergency Provider Emergency Medicine; PCP Physician Assistant; Visit Provider Internal Medicine Pulmonary Disease
DX: F23 Brief psychotic disorder (principal); F25.0 Schizoaffective disorder, bipolar type; Z78.1 Physical restraint status; Z20.822 Contact with and (suspected) exposure to COVID-19; Z79.899 Other long term (current) drug therapy
CPT/HCPCS: 36415; 71045; 80048; 80053; 80164; 80178; 80307; 82040; 82140; 82803; 83735; 84100; 85025; 87635; 93005; 94002; 94003; 94799; 99285; C1758; J1630; J1644; J2250; J2359; J2704; S9485

== ENCOUNTER → 2023-06-29 08:00 | Outpatient (BNV) | payer OTHER, SELFPAY | PROVIDERS: Emergency Provider Emergency Medicine; PCP Physician Assistant; Visit Provider Social Worker | DX: F25.0 Schizoaffective disorder, bipolar type (principal) | CPT/HCPCS: 99232; 99233; 99285 ==

== ENCOUNTER → 2023-06-29 21:22 | Outpatient (BNV) | payer OTHER, SELFPAY | PROVIDERS: Admitting Provider Nurse Practitioner Family; Emergency Provider Emergency Medicine; PCP Physician Assistant; Visit Provider Internal Medicine | DX: R00.0 Tachycardia, unspecified (principal) | CPT/HCPCS: 93010 ==

== ENCOUNTER 2023-06-29 21:25 | Outpatient (BNV) | payer OTHER, SELFPAY | END 2023-06-30 01:55 | PROVIDERS: Admitting Provider Nurse Practitioner Family; Emergency Provider Emergency Medicine; PCP Physician Assistant; Visit Provider Internal Medicine | DX: R00.0 Tachycardia, unspecified (principal); Z79.899 Other long term (current) drug therapy | CPT/HCPCS: 93010 ==

== ENCOUNTER → 2023-06-29 21:25 | Outpatient (BNV) | payer OTHER, SELFPAY | PROVIDERS: Admitting Provider Nurse Practitioner Family; Emergency Provider Emergency Medicine; PCP Physician Assistant; Visit Provider Nurse Practitioner Family | DX: F23 Brief psychotic disorder (principal) | CPT/HCPCS: 99291 ==

== ENCOUNTER → 2023-06-29 21:25 | Outpatient (BNV) | payer OTHER, SELFPAY | PROVIDERS: Admitting Provider Nurse Practitioner Family; Emergency Provider Emergency Medicine; PCP Physician Assistant; Visit Provider Internal Medicine Pulmonary Disease | DX: F25.0 Schizoaffective disorder, bipolar type (principal) | CPT/HCPCS: 99232; 99238; 99291 ==

== ENCOUNTER 2023-07-02 15:47 | Inpatient (IN) | payer OTHER, SELFPAY ==
--- OUTSIDE RECORDS SUMMARY | 2023-07-02 16:13 | XMS_ITS | Patient Health Record ---
Author Name Unknown [facility] Address [address] [place] [address] Care Team Providers Care Personalized Living Manager Nurse Name Role Phone Brian Collins Primary Care Provider Unavailab Sis Edmonds Unavailable [phone] ALLERGIES No Known Allergies RESULTS Component Value Reference Range Notes X ray : Foot, left 3V Reviewed date:01/11/2023 10:22:25 AM Interpretation:See Examination above Performing Lab: Notes/Report: See Examination above packs X ray : Foot, right 3V Reviewed date:01/11/2023 10:22:13 AM Interpretation:See Examination above Performing Lab: Notes/Report: See Examination above REASON FOR REFERRAL No Information MEDICATIONS Medication SIG (Take, Route, Frequency, Duration) Notes Start Date End Date Status lamoTRIgine 200 MG 1 tablet Orally Once a day Active OXcarbazepine 300 MG 1 tablet Orally Twi ce a day Active [place] Carbonate 600 MG 1 capsule Orall y Once a day 900 mg PM Active Night Splint AFO - L1930 1 wear at rest for 30 days Active SOCIAL HISTORY Tobacco Use: Social History Observation Description Date Details (start date - stop date) Former Smoker NA - NA Sex Assigned At : Social History Observation Description Sex Assigned At Unknown Tobacco Use/Smoking Question Answer Notes Are you a: former smoker Additional Findings: Tobacco Non-User Current no n-smoker Alcohol Screen Question Answer Notes Did you have a drink containing alcohol in the p ast year? Yes Points 0 Interpretation Negative Tobacco use other than smoking: Question Answer Notes Are you an other tobacco user? No VITAL SIGNS Blood pressure diastolic 80 mm Hg 01/11/2023 Height 6 ft in 01/11/2023 Blood pressure systolic 122 mm Hg 01/11/2023 Weight 240 lbs 01/11/2023 BMI 32.55 kg/m2 01/11/2023 Encounters Encounter Location Date Provider Diagnosis [address] [address] 01/11/2023 Sis Black Pain in right foot M79.671 ; Plantar fasciitis, bilateral M72.2 ; Calcaneal spur, right foot M77.31 ; Other myositis of right foot M60.871 ; Bursitis of right foot M77.51 ; Pain in left foot M79.672 ; Calcaneal spur, left foot M77.32 ; Other myositis of left foot M60.872 and Bursitis of left foot M77.52 [facility] [address] [address] [facility] [facility] [address] 02/03/[address] [address] 02/22/[address] [address] 02/22/[address] [address] 04/09/[address] [address] 04/12/2023 Sis Black ASSESSMENTS Encounter Date Diagnosis Assessment Notes Treatment Notes Treatment Clinical Notes 01/11/2023 Pain in right foot (ICD-10 - M79.671) 01/11/2023 Plantar fasciitis, bilateral (ICD-10 - M72.2) Dx New problem, Prognosis Uncertain (4) Patient Educated with: HEEL CORD STRETCHES.pdf (HEEL CORD STRETCHES.pdf) Patient Educated with: RICE THERAPY.pdf (RICE THERAPY.pdf) 01/11/2023 Calcaneal spur, right foot (ICD-10 - M77.31) 01/11/2023 Other myositis of right foot (ICD-10 - M60.871) 01/11/2023 Bursitis of right foot (ICD-10 - M77.51) 01/11/2023 Pain in left foot (ICD-10 - M79.672) 01/11/2023 Calcaneal spur, left foot (ICD-10 - M77.32) 01/11/2023 Other myositis of left foot (ICD-10 - M60.872) 01/11/2023 Bursitis of left foot (ICD-10 - M77.52) PLAN OF TREATMENT No Information Insurance Providers Payer Name Payer Address Payer Phone Subscriber Number Group Number Insured Name Patient Relationship to Insured Coverage Start Date Coverage End Date [facility] [employer] Claims [address] [place] [address] [phone] [id number] Gino Mcdaniels Self - patient is the insured MEDICAL (GENERAL) HISTORY Medical History History ICD Code Back,Hip,and Knee pain Broken bones Bipolar disorder
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
--- NOTE | 2023-07-02 16:44 | PC.NURSE ---
Pt arrived on unit at 1428, Vitals 97.8 F 123 18 98% 174/80 RA sitting
[2023-07-02] MEDS: LORazepam 0.5 MG TABLET PO (17:13)
--- NOTE | 2023-07-02 17:35 | PC.ADMIT ---
Pt is a 23 year old Hong Konger speaking male who arrived on M3 on 07/02/23 at 1428 on a CV from ICU via wheelchair. He was admitted to the hospital secondary to self presenting to ED stating the prior inpatient psychiatry had taken him off all his medications. While in the ED pt had multiple aggressive outbursts and was intubated in the ED on 06/29/23. He was extubated on 06/30/23 with no reported issues. He declined to participate in the admission process and so most of admission done off of Care Team assessment and previous admission notes. He was A&O x 4 and was calm and cooperative with all other tasks and was oriented to the unit, skin check done by Liz Villar Jr RN and Cipriano Patino RN. He appears to be flat and withdrawn but was pleasant upon approach. He appears to be drowsy but ambulatory and independent, Mariah Carranza DEMAND PLANNING ANALYST made aware. At this time, he appears to have a linear thought process. He has no reports of appetite loss, weight loss or difficulty sleeping. He has a PMH of sleep apnea without use of a CPAP. He was placed on 15 minute checks for safety.
[2023-07-02 18:49] VITALS: BMI 33.8
[2023-07-02] MEDS: lamoTRIgine 25 MG TABLET PO (20:10)
[2023-07-02] MEDS: HaloperidoL 5 MG TABLET 10 MG PO (20:10)
[2023-07-02] MEDS: Lithium Carbonate 300 MG TABLET 600 MG PO (20:10)
[2023-07-02] MEDS: clonazePAM 1 MG TABLET PO (20:10)
[2023-07-02] MEDS: Lactulose 20 GM/30 ML SOLUTION PO (20:11)
[2023-07-02 20:27] VITALS: BP 124/66; PULSE 109; RESP 14; TEMP 36.4; O2SAT 97
[2023-07-02] MEDS: Calcium Carbonate 750 MG TAB.CHEW PO (22:01)
[2023-07-02] MEDS: traZODone HCL 50 MG TABLET PO (23:42)
[2023-07-02] MEDS: Acetaminophen 325 MG TABLET 650 MG PO (23:42)
[2023-07-03] MEDS: Acetaminophen 325 MG TABLET 650 MG PO ×2 (06:06→15:48)
[2023-07-03 07:10] VITALS: BP 162/69; PULSE 104; RESP 16; TEMP 36.2; O2SAT 98
[2023-07-03 07:35] LABS: Ammonia 65 umol/L (13-55)
[2023-07-03 07:41] LABS: Alanine Aminotransferase 35 U/L (0-40); Albumin Level 4.1 g/dL (3.5-5.0); Alkaline Phosphatase 54 U/L (39-117); Anion Gap 12 (12-20); Aspartate Amino Transferase 22 U/L (5-37); Bilirubin Total 0.3 mg/dL (0.0-1.0); Blood Urea Nitrogen 11 mg/dL (9-16); Calcium 9.9 mg/dL (8.4-10.2); Carbon Dioxide 26 mmol/L (22-29); Chloride 104 mmol/L (96-108); Creatinine Clr Calc Pharmacy 195.4; Estimated Glomerular Filt Rate > 60; Glucose Fasting 107 mg/dL (60-99); Potassium 4.5 mmol/L (3.3-5.1); Sodium 137 mmol/L (135-145); Total Protein 7.2 g/dL (6.5-8.0)
[2023-07-03] MEDS: Lithium Carbonate 300 MG TABLET 600 MG PO ×2 (08:57→20:05)
[2023-07-03] MEDS: clonazePAM 1 MG TABLET PO (08:57)
[2023-07-03] MEDS: Lactulose 20 GM/30 ML SOLUTION PO ×2 (08:57→20:04)
[2023-07-03] MEDS: lamoTRIgine 25 MG TABLET PO ×2 (08:58→20:04)
--- NOTE | 2023-07-03 09:46 | HO.PSYCHPN ---
Subjective Subjective Date of Service: 07/03/23 Reason For Visit: Delusions Subjective Notes: Conditional Voluntary Medical Problems Affecting Mental Status: No Interim History: Slept OK. Taking meds as ordered. Wants to switch from klonopin to ativan. Feels sedated and feels that Ativan works better with my body. When asked about thoughts of harming others, he stated that another patient thinks he knows everything but I just walked away. CV was accepted by me. Medication Compliance: Yes Side effects from medications: No Review of Systems Acute medical concerns: No Mental Status Exam Mental Status Exam Patient Appearance: Well Grooomed Patient Orientation: Person, Place, Time and Situation Level of Consciousness: Lethargic Patient Behavior: Appropriate Mood Description: Calm and Blunted Affect Description: Blunted Patient Cognition Impaired: No Ability to Follow Directions: Good Speech Pattern: Slurred Memory Description: Intact Hallucinations: None Delusions: Not Present Thought Process: Intact Thought Content: positive for Intact Judgement: Fair Diagnostics Vital Signs (24Hr): Vital Signs - 24 hr 07/02/23 20:27 07/03/23 07:10 Temperature 97.6 F 97.2 F Pulse Rate 109 H 104 H Respiratory Rate 14 16 Blood Pressure 124/66 162/69 H Pulse Oximetry 97 98 Oxygen Delivery Method Room Air Room Air BMI result Body Mass Index 33.8 Labs 07/03/23 07:18 Labs: Laboratory Results - last 48 hr 07/03/23 07:18 Sodium 137 Potassium 4.5 Chloride 104 Carbon Dioxide 26 Anion Gap 12 BUN 11 Creatinine 0.75 Estim Creat Clear Calc 195.4 Estimated GFR > 60 Fasting Glucose 107 H Calcium 9.9 Total Bilirubin 0.3 AST 22 ALT 35 Alkaline Phosphatase 54 Ammonia 65 H Total Protein 7.2 Albumin 4.1 Medications Medications Current Medications Acetaminophen (Acetaminophen 325 Mg Tablet) 650 mg PO Q6H PRN PRN Reason: Pain, Mild (Pain Scale 1-3) Last Admin: 07/03/23 06:06 Dose: 650 mg Al Hydroxide/Mg Hydroxide (Magnesium Hydrox/Alum Hydrox 30 Ml Oral.Susp) 30 ml PO Q6H PRN PRN Reason: Heartburn/Nausea Benzocaine (Throat Lozenge, Medicated Lozenge) 1 lozenge MUCOUS MEM Q2H PRN PRN Reason: Sore Throat Benztropine Mesylate (Benztropine Mesylate 1 Mg Tablet) 1 mg PO TID PRN PRN Reason: Extrapyramidal Effects Calcium Carbonate (Calcium Carbonate 750 Mg Tab.Chew) 750 mg PO Q6H PRN PRN Reason: Dyspepsia Last Admin: 07/02/23 22:01 Dose: 750 mg Clonazepam (Clonazepam 1 Mg Tablet) 1 mg PO BID [facility] Last Admin: 07/03/23 08:57 Dose: 1 mg Haloperidol (Haloperidol 5 Mg Tablet) 10 mg PO BID [facility] Last Admin: 07/03/23 09:02 Dose: Not Given Lactulose (Lactulose 20 Gm/30 Ml Solution) 20 gm PO BID [facility] Last Admin: 07/03/23 08:57 Dose: 20 gm Lamotrigine (Lamotrigine 25 Mg Tablet) 25 mg PO BID [facility] Last Admin: 07/03/23 08:58 Dose: 25 mg [place] Carbonate ([place]ins Carbonate 300 Mg Tablet) 600 mg PO BID [facility] Last Admin: 07/03/23 08:57 Dose: 600 mg Magnesium Hydroxide (Milk Of Magnesia 30 Ml Oral.Susp) 30 ml PO DAILY PRN PRN Reason: Constipation Olanzapine (Olanzapine Odt 10 Mg Tab.Rapdis) 10 mg TRANSLINGU TID PRN PRN Reason: Psychosis Trazodone HCl (Trazodone Hcl 50 Mg Tablet) 50 mg PO BEDTIME PRN PRN Reason: Insomnia Last Admin: 07/02/23 23:42 Dose: 50 mg Allergies Allergies Allergy/AdvReac Type Severity Reaction Status Date / Time fluoxetine AdvReac Severe giuliana Verified 06/29/23 07:30 Assessment & Plan Assessment & Plan (1) Schizoaffective disorder, bipolar type: Status: Acute Code(s): F25.0 - Schizoaffective disorder, bipolar type Assessment and Plan: Continue current doses of Haldol, lithium, lamictal. Also has PRN zyprexa. Switch from stanidng klonopin to standing Ativan Reason for continued inpatient stay Substantial Risk for: rapid decompensation Time Spent With Patient Time: Total time managing care of this patient today ____ minutes.
[2023-07-03] MEDS: LORazepam 1 MG TABLET 2 MG PO (10:15)
[2023-07-03] MEDS: LORazepam 1 MG TABLET PO ×2 (15:51→20:05)
[2023-07-03] MEDS: HaloperidoL 5 MG TABLET 10 MG PO (20:04)
[2023-07-03] MEDS: traZODone HCL 50 MG TABLET PO (20:05)
[2023-07-03 20:12] VITALS: BP 140/62; PULSE 107; RESP 16; TEMP 36.5; O2SAT 96
[2023-07-04] MEDS: LORazepam 1 MG TABLET PO ×3 (08:43→20:53)
[2023-07-04] MEDS: Lithium Carbonate 300 MG TABLET 600 MG PO ×2 (08:43→20:53)
[2023-07-04] MEDS: Lactulose 20 GM/30 ML SOLUTION PO ×2 (08:43→20:53)
[2023-07-04] MEDS: lamoTRIgine 25 MG TABLET PO ×2 (08:44→20:53)
[2023-07-04] MEDS: HaloperidoL 5 MG TABLET 10 MG PO ×2 (08:47→20:53)
[2023-07-04 09:10] LABS: Lithium 0.36 mmol/L (0.60-1.20)
[2023-07-04] MEDS: OLANZapine ODT 10 MG TAB.RAPDIS TRANSLINGU ×2 (09:55→18:27)
[2023-07-04 13:21] VITALS: BP 146/70; PULSE 79; RESP 18; TEMP 36.5; O2SAT 98
[2023-07-04 20:30] VITALS: BP 145/67; PULSE 102; RESP 18; TEMP 36.6; O2SAT 96
[2023-07-04] MEDS: traZODone HCL 50 MG TABLET PO (21:29)
[2023-07-05] MEDS: traZODone HCL 50 MG TABLET PO (01:05)
[2023-07-05] MEDS: OLANZapine ODT 10 MG TAB.RAPDIS TRANSLINGU ×2 (07:09→15:34)
[2023-07-05 07:20] VITALS: BP 134/63; PULSE 83; RESP 16; TEMP 36.4; O2SAT 95
[2023-07-05] MEDS: LORazepam 1 MG TABLET PO ×2 (08:47→18:24)
[2023-07-05] MEDS: Lithium Carbonate 300 MG TABLET 600 MG PO (08:47)
[2023-07-05] MEDS: lamoTRIgine 25 MG TABLET PO (08:47)
[2023-07-05] MEDS: HaloperidoL 5 MG TABLET 10 MG PO ×2 (08:47→23:35)
[2023-07-05] MEDS: Lactulose 20 GM/30 ML SOLUTION PO ×2 (08:48→23:38)
--- NOTE | 2023-07-05 08:56 | PC.NURSE ---
Patient submitted 3 day note.
--- NOTE | 2023-07-05 09:00 | HO.PSYCHPN ---
Subjective Subjective Date of Service: 07/05/23 Reason For Visit: Delusions Subjective Notes: Conditional Voluntary and 3 Day Interim History: Pt slept most of the night. He did wake up few times, did have trazodone with good effect. Pt signed 3 day notice. He reports he feels better but does not think he can stay here too long. He reports peers have been arguing (other psychotic peers which is accurate) and this is a trigger. He denies hearing voices. He denies SI/HI. He reports he is not as concern about children being kidnapped, as he has not heard or seen anything concerning. Per nursing, he has slept most of the days. He had brief period of agitation Wednesday morning, then calmer. clonazepam was switched to ativan. Mental Status Exam Mental Status Exam Narrative: Appearance: casually groomed, fair hygiene in NAD Behavior: cooperative psychomotor: no agitation or retardation noted. Speech:clear, regular rate/rhythm/volume, spontaneous Thought process: linear Thought content: feeling better, somewhat anxious on the unit Mood: I'm okay Affect:slightly hypervigilant SI:denies HI:denies VH/AH: no overt Delusions:no overt paranoia, but worried about peers Insight/judgment:improving x 2. Memory/cog: alert, oriented x 3. Diagnostics Vital Signs (24Hr): Vital Signs - 24 hr 07/04/23 13:21 07/04/23 20:30 07/05/23 07:20 Temperature 97.7 F 97.8 F 97.5 F Pulse Rate 79 102 H 83 Respiratory Rate 18 18 16 Blood Pressure 146/70 H 145/67 H 134/63 Pulse Oximetry 98 96 95 Oxygen Delivery Method Room Air Room Air Room Air BMI result Body Mass Index 33.8 Labs 07/03/23 07:18 Labs: Laboratory Results - last 48 hr 07/04/23 08:48 [place] 0.36 L Medications Medications Current Medications Acetaminophen (Acetaminophen 325 Mg Tablet) 650 mg PO Q6H PRN PRN Reason: Pain, Mild (Pain Scale 1-3) Last Admin: 07/03/23 15:48 Dose: 650 mg Al Hydroxide/Mg Hydroxide (Magnesium Hydrox/Alum Hydrox 30 Ml Oral.Susp) 30 ml PO Q6H PRN PRN Reason: Heartburn/Nausea Benzocaine (Throat Lozenge, Medicated Lozenge) 1 lozenge MUCOUS MEM Q2H PRN PRN Reason: Sore Throat Benztropine Mesylate (Benztropine Mesylate 1 Mg Tablet) 1 mg PO TID PRN PRN Reason: Extrapyramidal Effects Calcium Carbonate (Calcium Carbonate 750 Mg Tab.Chew) 750 mg PO Q6H PRN PRN Reason: Dyspepsia Last Admin: 07/02/23 22:01 Dose: 750 mg Haloperidol (Haloperidol 5 Mg Tablet) 10 mg PO BID [facility] Last Admin: 07/05/23 08:47 Dose: 10 mg Lactulose (Lactulose 20 Gm/30 Ml Solution) 20 gm PO BID [facility] Last Admin: 07/05/23 08:48 Dose: 20 gm Lamotrigine (Lamotrigine 25 Mg Tablet) 25 mg PO BID [facility] Last Admin: 07/05/23 08:47 Dose: 25 mg [place] Carbonate ([place] Carbonate 300 Mg Tablet) 600 mg PO BID [facility] Last Admin: 07/05/23 08:47 Dose: 600 mg Lorazepam (Lorazepam 1 Mg Tablet) 1 mg PO TID [facility] Last Admin: 07/05/23 08:47 Dose: 1 mg Magnesium Hydroxide (Milk Of Magnesia 30 Ml Oral.Susp) 30 ml PO DAILY PRN PRN Reason: Constipation Olanzapine (Olanzapine Odt 10 Mg Tab.Rapdis) 10 mg TRANSLINGU TID PRN PRN Reason: Psychosis Last Admin: 07/05/23 07:09 Dose: 10 mg Trazodone HCl (Trazodone Hcl 50 Mg Tablet) 50 mg PO BEDTIME PRN PRN Reason: Insomnia Last Admin: 07/05/23 01:05 Dose: 50 mg Allergies Allergies Allergy/AdvReac Type Severity Reaction Status Date / Time fluoxetine AdvReac Severe giuliana Verified 06/29/23 07:30 Assessment & Plan Assessment & Plan (1) Schizoaffective disorder, bipolar type: Status: Acute Code(s): F25.0 - Schizoaffective disorder, bipolar type Plan Mr. Mcdaniels is a 23 year-old male with hx of schizoaffective disorder bipolar type. He was transferred from ICU where he was intubated due to severe agitation. He was started on depakote 750mg IV BID, lithium 600mg po BID, haldol 10mg po BID. Discussed with pt and pt's OP psychiatrist, Dr. Rizzo that it usually takes him a long time to recover when he decompensates. We discussed need for antipsychotic, currently on haldol as pt has been on olanzapine but taken off due to sedation. He did have elevated ammonia s/s to depakote, trending down on scheduled lactulose, but will have to continue to monitor. Will hold off on d/cing depakote for onw as no signs of encephalopathy nor myoclonus, but if problematic will keep on mostly lithium, Discussed at length with pt that current regimen on slightly sedating side but plan to gradually adjust medication ensuring that symptoms won't exacerbate. We also discussed that we will work closely with his OP psychiatrist, Dr. Rizzo to align jail goal with acute stabilization. PLAN 07/05/23: CV, 15 minutes checks. He did sign 3 day. Increase lithium 600mg po daily and 900mg qhs. Increase lamictal 100mg po qhs. continue haldol 10mg po BID. No signs of EPS. continue ativan but seems more on the sedating side. Reason for continued inpatient stay Substantial Risk for: inability to function Time Spent With Patient Time: Total time managing care of this patient today ____ minutes.
[2023-07-05] MEDS: LORazepam 0.5 MG TABLET PO ×2 (15:31→23:34)
[2023-07-05 22:15] VITALS: RESP 16
[2023-07-05] MEDS: Lithium Carbonate 300 MG TABLET 900 MG PO (23:33)
[2023-07-05] MEDS: lamoTRIgine 100 MG TABLET PO (23:34)
[2023-07-06] MEDS: traZODone HCL 50 MG TABLET PO ×2 (00:08→21:13)
[2023-07-06 00:28] LABS: Ammonia 44 umol/L (13-55)
[2023-07-06] MEDS: Cholecalciferol (Vitamin D3) 25 MCG TABLET 50 MCG PO (09:09)
[2023-07-06] MEDS: Multivitamin TABLET 1 TAB PO (09:09)
[2023-07-06] MEDS: LORazepam 0.5 MG TABLET PO ×3 (09:09→20:55)
[2023-07-06] MEDS: HaloperidoL 5 MG TABLET 10 MG PO ×2 (09:10→20:56)
[2023-07-06] MEDS: Lithium Carbonate 300 MG TABLET 900 MG PO ×2 (09:10→20:55)
--- NOTE | 2023-07-06 09:10 | P.PNPSI_ITS ---
Subjective Subjective Date of Service: 07/06/23 Reason For Visit: Delusions Subjective Notes: Conditional Voluntary and 3 Day Interim History: Pt slept most of the night. He did wake up once, had trazodone with good effect. He has been taking medications as prescribed. He has been able to attend some groups and is participating appropriately. He denies SI/HI. He reports he has less concern about children being kidnapped. He reports much less voices. Some suspiciousness with peers. He has been appropriate with interactions with peers and staff. No behavioral concerns. Medication Compliance: Yes Mental Status Exam Mental Status Exam Narrative: Appearance: casually groomed, fair hygiene in NAD Behavior: cooperative psychomotor: no agitation or retardation noted. Speech:clear, regular rate/rhythm/volume, spontaneous Thought process: linear Thought content: feeling better, somewhat anxious on the unit Mood: I'm okay Affect:slightly hypervigilant SI:denies HI:denies VH/AH: no overt Delusions:no overt paranoia, but worried about peers Insight/judgment:improving x 2. Memory/cog: alert, oriented x 3. Diagnostics Vital Signs (24Hr): Vital Signs - 24 hr 07/05/23 22:15 Respiratory Rate 16 BMI result Body Mass Index 33.8 Labs 07/03/23 07:18 Labs: Laboratory Results - last 48 hr 07/04/23 07/05/23 08:48 23:51 Ammonia 44 [place] 0.36 L Medications Medications Current Medications Acetaminophen (Acetaminophen 325 Mg Tablet) 650 mg PO Q6H PRN PRN Reason: Pain, Mild (Pain Scale 1-3) Last Admin: 07/03/23 15:48 Dose: 650 mg Al Hydroxide/Mg Hydroxide (Magnesium Hydrox/Alum Hydrox 30 Ml Oral.Susp) 30 ml PO Q6H PRN PRN Reason: Heartburn/Nausea Benzocaine (Throat Lozenge, Medicated Lozenge) 1 lozenge MUCOUS MEM Q2H PRN PRN Reason: Sore Throat Benztropine Mesylate (Benztropine Mesylate 1 Mg Tablet) 1 mg PO TID PRN PRN Reason: Extrapyramidal Effects Calcium Carbonate (Calcium Carbonate 750 Mg Tab.Chew) 750 mg PO Q6H PRN PRN Reason: Dyspepsia Last Admin: 07/02/23 22:01 Dose: 750 mg Haloperidol (Haloperidol 5 Mg Tablet) 10 mg PO BID [facility] Last Admin: 07/05/23 23:35 Dose: 10 mg Lactulose (Lactulose 20 Gm/30 Ml Solution) 20 gm PO BID [facility] Last Admin: 07/05/23 23:38 Dose: 20 gm Lamotrigine (Lamotrigine 100 Mg Tablet) 100 mg PO BEDTIME [facility] Last Admin: 07/05/23 23:34 Dose: 100 mg [place] Carbonate ([place] Carbonate 300 Mg Tablet) 900 mg PO BID [facility] Last Admin: 07/05/23 23:33 Dose: 900 mg Lorazepam (Lorazepam 0.5 Mg Tablet) 0.5 mg PO TID [facility] Last Admin: 07/05/23 23:34 Dose: 0.5 mg Lorazepam (Lorazepam 1 Mg Tablet) 1 mg PO BID PRN PRN Reason: severe, anxiety Last Admin: 07/05/23 18:24 Dose: 1 mg Magnesium Hydroxide (Milk Of Magnesia 30 Ml Oral.Susp) 30 ml PO DAILY PRN PRN Reason: Constipation Multivitamins/Vitamin C (Multivitamin Tablet) 1 tab PO DAILY [facility] Last Admin: 07/05/23 10:52 Dose: Not Given Olanzapine (Olanzapine Odt 10 Mg Tab.Rapdis) 10 mg TRANSLINGU TID PRN PRN Reason: Psychosis Last Admin: 07/05/23 15:34 Dose: 10 mg Trazodone HCl (Trazodone Hcl 50 Mg Tablet) 50 mg PO BEDTIME PRN PRN Reason: Insomnia Last Admin: 07/06/23 00:08 Dose: 50 mg Vitamin D (Cholecalciferol (Vitamin D3) 25 Mcg Tablet) 50 mcg PO DAILY [facility] Last Admin: 07/05/23 10:52 Dose: Not Given Allergies Allergies Allergy/AdvReac Type Severity Reaction Status Date / Time fluoxetine AdvReac Severe giuliana Verified 06/29/23 07:30 Assessment & Plan Assessment & Plan (1) Schizoaffective disorder, bipolar type: Status: Acute Code(s): F25.0 - Schizoaffective disorder, bipolar type Plan Mr. Mcdaniels is a 23 year-old male with hx of schizoaffective disorder bipolar type. He was transferred from ICU where he was intubated due to severe agitation. He was started on depakote 750mg IV BID, lithium 600mg po BID, haldol 10mg po BID. Discussed with pt and pt's OP psychiatrist, Dr. Rizzo that it usually takes him a long time to recover when he decompensates. We discussed need for antipsychotic, currently on haldol as pt has been on olanzapine but taken off due to sedation. He did have elevated ammonia s/s to depakote, trending down on scheduled lactulose, but will have to continue to monitor. Will hold off on d/cing depakote for onw as no signs of encephalopathy nor myoclonus, but if problematic will keep on mostly lithium, Discussed at length with pt that current regimen on slightly sedating side but plan to gradually adjust medication ensuring that symptoms won't exacerbate. We also discussed that we will work closely with his OP psychiatrist, Dr. Rizzo to align nursing home goal with acute stabilization. PLAN 07/05/23: CV, 15 minutes checks. He did sign 3 day. Increase lithium 600mg po daily and 900mg qhs. Increase lamictal 100mg po qhs. continue haldol 10mg po BID. No signs of EPS. continue ativan but seems more on the sedating side. 07/06 continue tx. still planning for dc on 07/08. Reason for continued inpatient stay Substantial Risk for: harm to others Time Spent With Patient Time: Total time managing care of this patient today ____ minutes.
[2023-07-06] MEDS: Lactulose 20 GM/30 ML SOLUTION PO (09:11)
[2023-07-06 13:23] VITALS: BP 151/67; PULSE 74; TEMP 36.9; O2SAT 98
[2023-07-06] MEDS: Calcium Carbonate 750 MG TAB.CHEW PO (14:01)
[2023-07-06] MEDS: OLANZapine ODT 10 MG TAB.RAPDIS TRANSLINGU ×2 (14:02→21:13)
[2023-07-06] MEDS: LORazepam 1 MG TABLET PO (16:41)
[2023-07-06] MEDS: lamoTRIgine 100 MG TABLET PO (20:56)
[2023-07-07] MEDS: Cholecalciferol (Vitamin D3) 25 MCG TABLET 50 MCG PO (08:02)
[2023-07-07] MEDS: Lithium Carbonate 300 MG TABLET 900 MG PO ×2 (08:02→20:04)
[2023-07-07] MEDS: HaloperidoL 5 MG TABLET 10 MG PO ×2 (08:03→20:04)
[2023-07-07] MEDS: Multivitamin TABLET 1 TAB PO (08:03)
[2023-07-07] MEDS: LORazepam 0.5 MG TABLET PO ×3 (08:03→20:04)
[2023-07-07 08:48] VITALS: BP 131/61; PULSE 83; RESP 14; TEMP 36.8; O2SAT 97
[2023-07-07] MEDS: OLANZapine ODT 10 MG TAB.RAPDIS TRANSLINGU ×2 (08:52→18:22)
--- NOTE | 2023-07-07 11:55 | HO.PSYCHPN ---
Subjective Subjective Date of Service: 07/07/23 Reason For Visit: Delusions Subjective Notes: Conditional Voluntary and 3 Day Interim History: Pt slept through the night. Pt presents as pleasant, calm and cooperative. He reports much less AH/VH. No overt delusions, some residual hypervigilance. Meeting with mother, who reports pt appears much more stable and ready for discharge. He denies SI/HI. No behavioral concerns. 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 Rizzo updated on presentation and plan to dc tomorrow to [facility]. He also agrees with plan Mental Status Exam Mental Status Exam Narrative: Appearance: casually groomed, fair hygiene in NAD Behavior: cooperative psychomotor: no agitation or retardation noted. Speech:clear, regular rate/rhythm/volume, spontaneous Thought process: linear Thought content: feeling better, somewhat anxious on the unit Mood: I'm okay Affect:slightly hypervigilant SI:denies HI:denies VH/AH: no overt Delusions:no overt paranoia, but worried about peers Insight/judgment:improving x 2. Memory/cog: alert, oriented x 3. Diagnostics Vital Signs (24Hr): Vital Signs - 24 hr 07/06/23 13:23 07/07/23 08:48 Temperature 98.4 F 98.2 F Pulse Rate 74 83 Respiratory Rate 14 Blood Pressure 151/67 H 131/61 Pulse Oximetry 98 97 Oxygen Delivery Method Room Air Room Air BMI result Body Mass Index 33.8 Labs 07/03/23 07:18 Labs: Laboratory Results - last 48 hr 07/05/23 23:51 Ammonia 44 Medications Medications Current Medications Acetaminophen (Acetaminophen 325 Mg Tablet) 650 mg PO Q6H PRN PRN Reason: Pain, Mild (Pain Scale 1-3) Last Admin: 07/03/23 15:48 Dose: 650 mg Al Hydroxide/Mg Hydroxide (Magnesium Hydrox/Alum Hydrox 30 Ml Oral.Susp) 30 ml PO Q6H PRN PRN Reason: Heartburn/Nausea Benzocaine (Throat Lozenge, Medicated Lozenge) 1 lozenge MUCOUS MEM Q2H PRN PRN Reason: Sore Throat Benztropine Mesylate (Benztropine Mesylate 1 Mg Tablet) 1 mg PO TID PRN PRN Reason: Extrapyramidal Effects Calcium Carbonate (Calcium Carbonate 750 Mg Tab.Chew) 750 mg PO Q6H PRN PRN Reason: Dyspepsia Last Admin: 07/06/23 14:01 Dose: 750 mg Haloperidol (Haloperidol 5 Mg Tablet) 10 mg PO BID [facility] Last Admin: 07/07/23 08:03 Dose: 10 mg Lamotrigine (Lamotrigine 100 Mg Tablet) 100 mg PO BEDTIME [facility] Last Admin: 07/06/23 20:56 Dose: 100 mg [place] Carbonate ([place] Carbonate 300 Mg Tablet) 900 mg PO BID [facility] Last Admin: 07/07/23 08:02 Dose: 900 mg Lorazepam (Lorazepam 0.5 Mg Tablet) 0.5 mg PO TID [facility] Last Admin: 07/07/23 08:03 Dose: 0.5 mg Lorazepam (Lorazepam 1 Mg Tablet) 1 mg PO BID PRN PRN Reason: severe, anxiety Last Admin: 07/06/23 16:41 Dose: 1 mg Magnesium Hydroxide (Milk Of Magnesia 30 Ml Oral.Susp) 30 ml PO DAILY PRN PRN Reason: Constipation Multivitamins/Vitamin C (Multivitamin Tablet) 1 tab PO DAILY [facility] Last Admin: 07/07/23 08:03 Dose: 1 tab Olanzapine (Olanzapine Odt 10 Mg Tab.Rapdis) 10 mg TRANSLINGU TID PRN PRN Reason: Psychosis Last Admin: 07/07/23 08:52 Dose: 10 mg Trazodone HCl (Trazodone Hcl 50 Mg Tablet) 50 mg PO BEDTIME PRN PRN Reason: Insomnia Last Admin: 07/06/23 21:13 Dose: 50 mg Vitamin D (Cholecalciferol (Vitamin D3) 25 Mcg Tablet) 50 mcg PO DAILY [facility] Last Admin: 07/07/23 08:02 Dose: 50 mcg Allergies Allergies Allergy/AdvReac Type Severity Reaction Status Date / Time fluoxetine AdvReac Severe giuliana Verified 06/29/23 07:30 Assessment & Plan Assessment & Plan (1) Schizoaffective disorder, bipolar type: Status: Acute Code(s): F25.0 - Schizoaffective disorder, bipolar type Plan Mr. Mcdaniels is a 23 year-old male with hx of schizoaffective disorder bipolar type. He was transferred from ICU where he was intubated due to severe agitation. He was started on depakote 750mg IV BID, lithium 600mg po BID, haldol 10mg po BID. Discussed with pt and pt's OP psychiatrist, Dr. Rizzo that it usually takes him a long time to recover when he decompensates. We discussed need for antipsychotic, currently on haldol as pt has been on olanzapine but taken off due to sedation. He did have elevated ammonia s/s to depakote, trending down on scheduled lactulose, but will have to continue to monitor. Will hold off on d/cing depakote for onw as no signs of encephalopathy nor myoclonus, but if problematic will keep on mostly lithium, Discussed at length with pt that current regimen on slightly sedating side but plan to gradually adjust medication ensuring that symptoms won't exacerbate. We also discussed that we will work closely with his OP psychiatrist, Dr. 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 PLAN 07/05/23: CV, 15 minutes checks. He did sign 3 day. Increase lithium 600mg po daily and 900mg qhs. Increase lamictal 100mg po qhs. continue haldol 10mg po BID. No signs of EPS. continue ativan but seems more on the sedating side. 07/06 continue tx. still planning for dc on 07/08. 07/07 continue tx. dc tomorrow Reason for continued inpatient stay Substantial Risk for: stable for discharge Time Spent With Patient Time: Total time managing care of this patient today ____ minutes.
[2023-07-07 18:00] VITALS: BP 117/74; PULSE 90; RESP 16; TEMP 36.6; O2SAT 99
[2023-07-07] MEDS: LORazepam 1 MG TABLET PO (18:22)
[2023-07-07] MEDS: traZODone HCL 50 MG TABLET PO (20:04)
[2023-07-07] MEDS: lamoTRIgine 100 MG TABLET PO (20:04)
[2023-07-08] MEDS: traZODone HCL 50 MG TABLET PO (02:43)
[2023-07-08 07:00] VITALS: BMI 26.2
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
[2023-07-08] MEDS: LORazepam 0.5 MG TABLET PO (08:52)
[2023-07-08] MEDS: Multivitamin TABLET 1 TAB PO (08:52)
[2023-07-08] MEDS: HaloperidoL 5 MG TABLET 10 MG PO (08:52)
[2023-07-08] MEDS: Lithium Carbonate 300 MG TABLET 900 MG PO (08:53)
[2023-07-08] MEDS: Cholecalciferol (Vitamin D3) 25 MCG TABLET 50 MCG PO (08:53)
[2023-07-08 09:11] LABS: Lithium 0.44 mmol/L (0.60-1.20)
--- NOTE | 2023-07-08 13:15 | PC.NURSE ---
Patient easily engaged. Reports mood is level, feels ready to go. Plan to complete PHP intake following discharge. Denies mood disturbances, denies depression or sadness. Denies SI/HI plan or intent. Denies perceptual disturbances, no overt psychosis or expressed delusions. Denies racing thoughts. Discharge paperwork reviewed with patient, reports understanding. Medications reviewed with patient reports understanding. Follow up appointments reviewed with patient reports understanding. All belongings taken with patient. Crisis numbers provided. Information regarding walk in clinic provided. Information regarding obtaining PCP through [facility] included. Patient escorted to [facility].
== END 2023-07-08 12:45 | disposition home or self-care (01) | DRG 885 ==
PROVIDERS: Admitting Provider Psychiatry & Neurology Psychiatry; Responsible Provider Social Worker; Visit Provider Psychiatry & Neurology Psychiatry
DX: F25.0 Schizoaffective disorder, bipolar type (principal); Z79.899 Other long term (current) drug therapy
CPT/HCPCS: 36415; 80053; 80178; 82140

== ENCOUNTER → 2023-07-02 15:47 | Outpatient (BNV) | payer OTHER, SELFPAY | PROVIDERS: Admitting Provider Psychiatry & Neurology Psychiatry; Visit Provider Psychiatry & Neurology Psychiatry | DX: F25.0 Schizoaffective disorder, bipolar type (principal) | CPT/HCPCS: 90792; 99231; 99232; 99239 ==

== ENCOUNTER 2023-07-09 13:30 | Outpatient (RCR) | payer OTHER, SELFPAY ==
--- NOTE | 2023-07-09 10:15 | HO.PHP ---
Gino reported that he was experiencing paranoia and unbearably bad anxiety , which are [his] warning signs that [he] needs to be alone during the processing group and requested to leave programming for the day. He noted that he has been taking his medication as prescribed but continues to experience an increase in anxiety symptoms. He verbally contracted for safety denying suicidal ideation/plan/intent. Gino stated that he has the contact for crisis services if needed and stated that if his symptoms worsened that he would go to the emergency department for further assessment.
--- NOTE | 2023-07-13 14:38 | HO.PHP ---
Gino reached out to the program and spoke to Avril, in which he informed Avril that he would like to discharge from the program. Avril noted that Gino stated his medication is causing tremors and he's not ready to do PHP at this time. Gino expressed no safety concerns during this time.
== END 2023-07-09 23:59 | disposition home or self-care (01) ==
LOC: HO.PHPA 13:30
PROVIDERS: Visit Provider Psychiatry & Neurology Psychiatry
DX: F25.0 Schizoaffective disorder, bipolar type (principal)
CPT/HCPCS: 90791; 90853

== ENCOUNTER 2023-07-16 15:57 | Outpatient (REF) | payer OTHER, SELFPAY | END 2023-07-16 15:58 | disposition home or self-care (01) | LOC: HO.LAB 15:57 | PROVIDERS: PCP Physician Assistant; Visit Provider Psychiatry & Neurology Psychiatry | DX: F31.9 Bipolar disorder, unspecified (principal) | CPT/HCPCS: 36415; 80178 ==

== ENCOUNTER 2023-10-29 10:11 | Outpatient (REF) | payer OTHER, SELFPAY ==
[2023-10-29 11:23] LABS: Estimated Average Glucose 97 mg/dL
[2023-10-29 12:02] LABS: Glucose Fasting 99 mg/dL (60-99)
[2023-10-29 12:23] LABS: Free T4 (Free Thyroxine) 0.95 ng/dL (0.71-1.85); Insulin 10 uU/mL (2-29); T4 Thyroxine 6.4 ug/dL (4.5-12.0); Thyroid Stimulating Hormone 1.42 uIU/mL (0.32-4.0); Vitamin D 25-OH Total 69.2 ng/mL (>30)
[2023-10-29 12:34] LABS: Folate 11.5 ng/mL (> or = 4.0); Vitamin B12 491 pg/mL (200-900)
[2023-10-30 22:03] LABS: Triiodothyronine T3 Total 89 ng/dL (76-181)
[2023-11-03 07:09] LABS: Triiodothyronine T3 Reverse 17 ng/dL (8-25)
== END 2023-10-29 10:12 | disposition home or self-care (01) ==
LOC: HO.LAB 10:11
PROVIDERS: PCP Physician Assistant; Visit Provider Psychiatry & Neurology Psychiatry
DX: E78.00 Pure hypercholesterolemia, unspecified (principal); E55.9 Vitamin D deficiency, unspecified; R73.03 Prediabetes; E03.9 Hypothyroidism, unspecified
CPT/HCPCS: 36415; 82306; 82607; 82746; 82947; 83036; 83525; 84436; 84439; 84443; 84480; 84482

== ENCOUNTER 2023-11-11 10:57 | Outpatient (AMB) | payer OTHER, SELFPAY ==
--- NOTE | 2023-11-11 11:01 | MHC.OFFWIV ---
Intake Vital Signs 11/11/23 11:11 Height 6 ft Weight 254 lb BMI 34.4 BP 150/80 H Blood Pressure Location Lt brachial Position Sitting Pulse 90 Pulse Source Pulse Oximeter Temp 97.4 F Temp Source Temporal Artery Scan Pulse Oximetry (%) 98 Oxygen Delivery Method Room Air Intake Visit Reasons: EP stomach/low back pain tongue rash Intake Note: pt is here today for stomach pain with low back pain and also has a rash on his tongue started 1 weeks ago Patient Tobacco Use Status: Never used Tobacco Allergies fluoxetine Adverse Reaction (Severe, Verified 11/11/23 11:14) giuliana Do you need a note to return to daycare/school/sports/work: No HPI HPI Comments History of Present Illness Details The patient is a 23-year-old male who has several complaints today. First he was complaining of bloating after eating, he states he has more of an uncomfortableness in his stomach after he eats and he gets full fast, he states he is moving his bowels normally and passing gas. He denies any nausea, vomiting or fever. He also notes he is taking a new medication for his bipolar disorder. Secondary he has complaining of a rash on the back of his tongue and a feeling of fullness in his throat, he states these have been getting worse over the last few days. He states he is taking a daily allergy pill and it does seem to help but he still feels like there is bumps in the back of his tongue. He denies any problems swallowing or handling his secretions or shortness of breath or trouble breathing. Third he states he has low back pain that has been getting worse for the last few days, he denies any urinary symptoms or history of kidney stones are again fevers. [facility] Medical History (Updated 11/11/23 @ 11:43 by Sera Morris PA-C) Acute respiratory failure Schizoaffective disorder, bipolar type Fibroepithelial polyp No known health problems Bipolar 1 disorder with moderate giuliana Depression Anxiety Surgical History S/P colonoscopy H/O endoscopy Family History Mother Alcohol abuse Mental problem Father Alcohol abuse Mental problem Melanoma Social History Household Members: Family Household Members Other:: mom and brother Housing: House Do you presently have visiting nurse or other home services: No Unable to assess alcohol history related to: Unknown Alcohol intake: never Comment: none Patient Tobacco Use Status: Never used Tobacco e-Cigarette/Vaping Use: Never Used Second Hand Smoke Exposure: No service: No Current occupational status: disabled 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 occupation: Student - Online Sexual orientation: Straight/Heterosexual Cognitive needs: No Hearing needs: No Vision needs: No Review of Systems Const All systems reviewed & are unremarkable except as noted in HPI and below Physical Exam Vital Signs: Last Vital Signs Temp 97.4 F 11/11/23 11:11 Pulse 90 11/11/23 11:11 BP 150/80 H 11/11/23 11:11 Pulse Ox 98 11/11/23 11:11 Oxygen Delivery Method Room Air 11/11/23 11:11 BMI result Body Mass Index 34.4 Const General: cooperative, healthy appearing, comfortable, no acute distress and well developed Orientation/consciousness: patient oriented x3 Limitations: no limitations HEENT Head: Yes normal to inspection Ears: hearing grossly normal bilaterally General nose exam: Normal external nose present Face and sinus: Yes normal facial exam Mouth: Normal oral and palatal mucosa present, lip normal, tongue normal and moist mucous membranes Throat: Yes tonsils normal (Slightly erythematous, no exudate noted), Yes uvula midline and Yes cobblestoning Eyes General: appearance normal, both eyes and all related structures Neck Neck: Yes normal visual inspection and Yes full ROM Resp Effort & Inspection: normal respiratory effort and able to speak in complete sentences GI Inspection: Yes normal to inspection Palpation (GI): Soft to palpation and nontender General: Yes no CVA tenderness Back/Spine/Pelvis Back: no CVA tenderness Cervical Spine: cervical ROM normal and No Cervical spine tenderness Thoracic/Lumbar Spine: thoraco-lumbar ROM normal, No thoracic spinal tenderness and No lumbar spinal tenderness Skin General skin exam: no rashes or lesions noted Neuro General: patient oriented x3 Extrem General: Yes normal to inspection Assessment & Plan Assessment & Plan (1) Indigestion: Code(s): K30 - Functional dyspepsia Plan: Recommended purchasing an [id number] medication that matches his symptoms, told him to look at Pepcid, omeprazole and Gas-X. If his symptoms continue, he should follow up with his primary care doctor, could consider H pylori testing at that point. Did educate patient that he is taking a new medication for his bipolar and 1 of the side effects is indigestion. (2) Low back pain: Code(s): M54.50 - Low back pain, unspecified Qualifiers: Chronicity: acute Back pain laterality: bilateral Sciatica presence: unspecified whether sciatica present Qualified Code(s): M54.50 - Low back pain, unspecified Plan: Educated patient about symptoms of kidney stones and signs to watch out for. Recommended if pain continues or he develops any blood in his urine or fever to go to the emergency department (3) Allergic pharyngitis: Code(s): J02.9 - Acute pharyngitis, unspecified Plan: Recommended continuing to take an allergy pill daily however if he develops any tightness in the back of his throat or increasing fullness in the back of his throat, he should call 911. Coding Level of Care Code Est Pt Level 4 (33919) Diagnoses Indigestion K30 Acute bilateral low back pain, unspecified whether sciatica present M54.50 Chronicity: acute Back pain laterality: bilateral Sciatica presence: unspecified whether sciatica present Allergic pharyngitis J02.9
[2023-11-11 11:11] VITALS: BP 150/80; PULSE 90; TEMP 36.3; O2SAT 98; BMI 34.4
== END 2023-11-11 12:02 | disposition home or self-care (01) ==
PROVIDERS: PCP Physician Assistant; Visit Provider Physician Assistant
DX: K30 Functional dyspepsia (principal); M54.50 Low back pain, unspecified; J02.9 Acute pharyngitis, unspecified
CPT/HCPCS: 99213

== ENCOUNTER 2024-01-17 08:58 | Outpatient (AMB) | payer OTHER, SELFPAY ==
[2024-01-17 09:05] VITALS: BP 140/70; PULSE 75; O2SAT 98; BMI 34.9
--- NOTE | 2024-01-17 09:05 | A.OFFPC_ITS ---
Vital Signs 01/17/24 09:05 Height 6 ft Weight 257 lb 8 oz BMI 34.9 BP 140/70 H Blood Pressure Location Lt brachial Position Sitting Pulse 75 Pulse Source Pulse Oximeter Pulse Oximetry (%) 98 Oxygen Delivery Method Room Air Intake Visit Reasons: pe Intake Note: Patient is here today for a physical. Shake Splitter Required: No Accompanied by: Self / Same As Patient Allergies fluoxetine Adverse Reaction (Severe, Verified 01/17/24 09:14) giuliana haloperidol [From Haldol] Adverse Reaction (Intermediate, Verified 01/17/24 09:20) Tremor Medication List - Last Reconciled 01/17/24 by Brian Collins PA-C cariprazine (Vraylar) 1.5 mg PO DAILY cholecalciferol (vitamin D3) 50 mcg (2 x 25 mcg (1,000 unit)) PO DAILY lamotrigine 100 mg PO BEDTIME lithium carbonate 900 mg (3 x 300 mg) PO BID multivitamin (Daily-Violeta tablet) 1 tab PO DAILY Tobacco use date assessed: 01/17/24 Dental Screening Dental Screen Date: 01/17/24 Did you have a dental visit in the last 12 months?: Yes Did you have a dental problem in the last 6 months where you did not have access to dental care?: No Was dental information given to patient?: Patient has dentist HPI pe HPI Details Patient is a 23 year-old male here today for annual physical.? Patient's past medical history significant moderate to severe bipolar disorder, depression, obesity. .. Bipolar disorder:? Is followed by a psychiatrist and continues on mental health medications to stabilize his mood.? He feels he has been much more stable since med adjustments done by his psychiatrist. Now on Vraylar 1.5 mg 5 times a week. 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 .. Obesity:? He does understand his BMI is over 30, has been trying to be more physically active to reduce weight. . VAccine:? Up-to-date with tetanus vaccine, considering flu vaccine, Declines COVID vac? Laboratory Tests 07/02/22 07/02/22 12:14 12:14 RBC 5.12 Creatinine 0.92 TSH 1.04 [facility] Medical History Acute respiratory failure Schizoaffective disorder, bipolar type Fibroepithelial polyp No known health problems Bipolar 1 disorder with moderate giuliana Depression Anxiety Surgical History S/P colonoscopy H/O endoscopy Family History Mother Alcohol abuse Mental problem Father Alcohol abuse Mental problem Melanoma Social History (Updated 01/17/24 @ 09:17 by Brian Collins PA-C) Household Members: Family Household Members Other:: mom and brother Housing: House Do you presently have visiting nurse or other home services: No Unable to assess alcohol history related to: Unknown Alcohol intake: never Comment: none Patient Tobacco Use Status: Never used Tobacco e-Cigarette/Vaping Use: Never Used Second Hand Smoke Exposure: No service: No Current occupational status: unemployed and disabled 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 1. Little interest or pleasure in doing things: not at all 2. Feeling down, depressed, or hopeless: not at all 3. Trouble falling or staying asleep, or sleeping too much: not at all 4. Feeling tired or having little energy: not at all 5. Poor appetite or overeating: not at all 6. Feeling bad about yourself - or that you are a failure or have let yourself or your family down: not at all 7. Trouble concentrating on things, such as reading the newspaper or watching television: not at all 8. Moving or speaking so slowly that other people could have noticed. Or the opposite - being so fidgety or restless that you have been moving around a lot more than usual: not at all 9. Thoughts that you would be better off or of hurting yourself in some way: not at all Total score: 0 Depression Screening Interpretation: Negative Depression Screening Done: Yes 69516 - PHQ-9 Billing: Yes Source: Developed by Drs. Gino Shelton, Shari Duong, Héctor Alves and colleagues, with an educational allison from [employer]. Thrive Questionnaire Date Thrive assessed: 07/01/23 AUDIT C Alcohol Use Questionnaire (AUDIT-C) 1. How often do you have a drink containing alcohol?: Never 3. How often do you have six or more drinks on one occasion?: Never Total Score: 0 OVIDIO-7 AMB Questionnaire OVIDIO-7 Date OVIDIO - 7 assessed: 01/17/24 Feeling nervous, anxious, or on edge: 0 = Not at all Not being able to stop or control worryin = Not at all Worrying too much about different things: 0 = Not at all Trouble relaxin = Not at all Being so restless that it is hard to sit still: 0 = Not at all Becoming easily annoyed or irritable: 0 = Not at all Feeling afraid as if something awful might happen: 0 = Not at all Total OVIDIO-7 score (0-4 normal; 5-9 mild; 10-14 moderate; 15-21 severe): 0 Source: Developed by Drs. Gino Shelton, Shari Duong, Héctor Alves and colleagues, with an educational allison from [employer]. OVIDIO-7 Assessment Billing OVIDIO-7 Assessment Tool: OVIDIO-7 Assessment 95211 Review of Systems Const Denies body aches, Denies chills, Denies excessive sweating, Denies fatigue, Denies fever(s) and Denies headache(s) Eyes Denies blurry vision ENT Denies dysphagia, Denies vertigo, Denies dizziness, Denies headache(s), Denies hearing loss and Denies tinnitus Card Denies chest pain, Denies chest pain with activity, Denies syncope, Denies irregular heart rhythm and Denies dyspnea Resp Denies chest congestion, Denies cough, Denies hemoptysis, Denies dyspnea and Denies wheezing GI Denies abdominal pain, Denies melena, Denies hematochezia, Denies coffee ground emesis, Denies dysphagia, Denies diarrhea, Denies nausea and Denies vomiting Denies difficulty urinating, Denies dysuria, Denies urinary frequency, Denies urinary hesitancy and Denies urinary urgency Musc Denies arthralgias, Denies limited range of motion, Denies muscle cramps and Denies muscle weakness Skin/Breast Denies rash and Denies skin ulcer Neuro Denies Abnormal speech present, Denies confusion, Denies vertigo, Denies dizziness, Denies syncope, Denies headache(s), Denies memory loss and Denies seizure-like activity Psych Denies anxiety, Denies confusion, Denies depression, Denies memory loss, Denies panic attacks and Denies paranoia Endo Denies excessive sweating, Denies fatigue, Denies flushing, Denies polydipsia and Denies polyuria Aller/Immun Denies wheezing Physical exam (Primary Care) Vital Signs: Last Vital Signs Pulse 75 01/17/24 09:05 BP 140/70 H 01/17/24 09:05 Pulse Ox 98 01/17/24 09:05 Oxygen Delivery Method Room Air 01/17/24 09:05 BMI result Body Mass Index 34.9 Tobacco/Smoking Status: Tobacco use Status Tobacco use date assessed 11/11/22 01/17/24 09:05 Patient Tobacco Use Status Never used Tobacco 01/17/24 09:05 e-Cigarette/Vaping Use Never Used 01/17/24 09:05 PHQ-9: PHQ-9 Score PHQ-9: Total score 0 01/17/24 09:13 Depression Screening Interpretation: Negative Thrive Assessment: Date of Thrive Assessment Date Thrive assessed 07/01/23 01/17/24 09:05 Const General: cooperative, comfortable, no acute distress, alert and awake; No confusion Orientation/consciousness: oriented to person, oriented to place, patient oriented x3 and No confusion HENMT Head: Yes normocephalic Ears: external ears normal and TM's normal bilaterally Face and sinus: No sinus tenderness Mouth: Normal oral and palatal mucosa present and tongue normal Teeth and gingiva: dentition normal and gingiva normal Throat: Yes posterior oropharynx normal, Yes tonsils normal and Yes uvula midline Eyes Conjunctivae: conjunctivae normal Sclerae: sclerae normal Pupils: Equal, round and reactive pupils present EOM: EOMs intact bilaterally Direct Ophthalmoscopy: No no photophobia Neck Neck: Yes no lymphadenopathy, No tender and Yes no JVD Thyroid: Thyroid normal Carotids: no bruits Chest Chest palpation & inspection: no tenderness Resp Effort & Inspection: normal respiratory effort, no audible wheezes, not labored and no stridor Auscultation: no crackles, no rales, no rhonchi and no wheezes Cardio Jugular venous distension: no JVD Rate: regular rate, not bradycardic and not tachycardic Rhythm: regular rhythm Bruits: no carotid bruits Peripheral pulses: Peripheral pulses 2+ throughout GI Inspection: Yes normal to inspection, No abdominal wall ecchymosis and No visible herniation Palpation (GI): Soft to palpation, nontender, no guarding, not rigid and No hepatosplenomegaly present Auscultation: normoactive bowel sounds General: Yes no CVA tenderness Back/Spine/Pelvis Back: no CVA tenderness and No back tenderness Cervical Spine: cervical ROM normal Thoracic/Lumbar Spine: thoracic and lumbar spine normal to inspection, straight leg raise negative bilaterally, No thoraco-lumbar ROM limited and No lumbar spinal tenderness Skin Lesions: no lesions Rashes: no rashes Wounds: no wounds Neuro General: oriented to person, oriented to place, patient oriented x3, CN's II-XI intact bilaterally and No confusion Cranial nerves: Yes Equal, round and reactive pupils present and Yes Normal accommodation reflex present Cognition (Neuro): normal cognition Speech: No Abnormal speech present Gait exam (Neuro): Normal gait present Motor exam (neuro): 5/5 motor strength present throughout Extrem Right upper extremity: full ROM; no cyanosis Left upper extremity: full ROM; no cyanosis Right lower extremity: no edema Left lower extremity: no edema Psych Appearance: grossly normal Mental Status: mental status grossly normal Affect: normal affect Attitude: cooperative Thought process: Normal thought process present Assessment and Plan Assessment & Plan (1) Annual physical exam: Code(s): Z00.00 - Encounter for general adult medical examination without abnormal findings (2) Bipolar 1 disorder with moderate giuliana: Code(s): F31.12 - Bipolar disorder, current episode manic without psychotic features, moderate Plan: Continues to follow psychiatry who manages his mental health medication. On several different mood stabilization medication. He feels stable from a mental health point of view and does get his lithium levels checked on a regular basis. Orders: Orders Complete Blood Count no Diff Today Z13.1 - Encounter for screening for diabetes mellitus Comprehensive [place]. Panel Fast Today Z13.1 - Encounter for screening for diabetes mellitus Coding Level of Care Code Est Pt Prev Care 18-39y(46069) Diagnoses Annual physical exam Z00.00 Bipolar 1 disorder with moderate giuliana F31.12 Additional Codes OVIDIO-7 Assessment Billing - OVIDIO-7 Assessment Tool: OVIDIO-7 Assessment 23914 ([id number])
== END 2024-01-17 09:26 | disposition home or self-care (01) ==
PROVIDERS: PCP Physician Assistant; Visit Provider Physician Assistant
DX: Z00.00 Encounter for general adult medical examination without abnormal findings (principal); F31.12 Bipolar disorder, current episode manic without psychotic features, moderate
CPT/HCPCS: 99395

== ENCOUNTER 2024-04-05 08:27 | Outpatient (AMB) | payer OTHER, SELFPAY ==
--- NOTE | 2024-04-05 08:34 | AM.OFFWIN_ITS ---
Intake Vital Signs 04/05/24 08:35 Height 6 ft BP 122/80 Blood Pressure Location Rt brachial Position Sitting Pulse 90 Pulse Source Pulse Oximeter Temp 98.0 F Temp Source Oral Pulse Oximetry (%) 98 Oxygen Delivery Method Room Air Intake Visit Reasons: EP cough 2 weeks, HR elevated upon standing Intake Note: pt is here for cough for 2 weeks, and pt states he uses a fitbit and HR states its been high Patient Tobacco Use Status: Never used Tobacco Allergies fluoxetine Adverse Reaction (Severe, Verified 04/05/24 08:37) giuliana haloperidol [From Haldol] Adverse Reaction (Intermediate, Verified 04/05/24 08:37) Tremor Do you need a note to return to daycare/school/sports/work: No HPI EP cough 2 weeks, HR elevated upon standing HPI Details This note is constructed using voice recognition software. While every effort has been made to ensure accuracy, on site construction superintendent errors may have been included. The patient is a 24 year old male who presents to the clinic today with cough after URI. He reports that he has been having a cough for the past 2 weeks, that has improved since onset, however has not resolve. About 2 weeks ago he had an upper respiratory infection which he had a fever of up to 102. He tested negative for COVID. He also notes in that time he has found his heart rate to go up to 130 when he is standing, or when he is coughing. He denies chest pain, palpitations, dyspnea. He does also report that after coughing he gets some pain in his anterior chest wall, which improves when he is not coughing. It also worsens when he presses on the area. [facility] Medical History Acute respiratory failure Schizoaffective disorder, bipolar type Fibroepithelial polyp No known health problems Bipolar 1 disorder with moderate giuliana Depression Anxiety Surgical History S/P colonoscopy H/O endoscopy Family History Mother Alcohol abuse Mental problem Father Alcohol abuse Mental problem Melanoma Social History (Updated 01/17/24 @ 09:17 by Brian Collins PA-C) Household Members: Family Household Members Other:: mom and brother Housing: House Do you presently have visiting nurse or other home services: No Unable to assess alcohol history related to: Unknown Alcohol intake: never Comment: none Patient Tobacco Use Status: Never used Tobacco e-Cigarette/Vaping Use: Never Used Second Hand Smoke Exposure: No service: No Current occupational status: unemployed and disabled Current occupation: Student - Online Sexual orientation: Straight/Heterosexual Cognitive needs: No Hearing needs: No Vision needs: No Review of Systems Const All systems reviewed & are unremarkable except as noted in HPI and below Physical Exam Vital Signs: Last Vital Signs Temp 98.0 F 04/05/24 08:35 Pulse 90 04/05/24 08:35 BP 122/80 04/05/24 08:35 Pulse Ox 98 04/05/24 08:35 Oxygen Delivery Method Room Air 04/05/24 08:35 Const General: cooperative, healthy appearing, comfortable and no acute distress Orientation/consciousness: patient oriented x3 Limitations: no limitations HEENT Head: Yes normal to inspection Ears: hearing grossly normal bilaterally, external ears normal and TM's normal bilaterally General nose exam: Normal external nose present, Normal nares present and No na jennifer discharge present Face and sinus: Yes normal facial exam and Yes sinuses nontender Mouth: Normal oral and palatal mucosa present and moist mucous membranes Throat: Yes tonsils normal, Yes uvula midline and Yes posterior oropharynx abnormal (Erythema) Eyes General: appearance normal, both eyes and all related structures Neck Neck: Yes normal visual inspection Resp Effort & Inspection: normal respiratory effort, able to speak in complete sentences, Actively coughing, no respiratory distress, not tachypneic, no tripod positioning and no use of accessory muscles Auscultation: clear to auscultation bilaterally Cardio Jugular venous distension: no JVD Rate: regular rate Rhythm: regular rhythm Heart sounds: S1 normal heart sound present, S2 normal heart sound present, no click, no gallops, no murmurs and no rubs Skin General skin exam: no rashes or lesions noted, elasticity normal and turgor normal Neuro General: patient oriented x3 Extrem General: Yes normal to inspection and Yes no clubbing, cyanosis or edema Assessment & Plan Assessment & Plan (1) URI (upper respiratory infection): Code(s): J06.9 - Acute upper respiratory infection, unspecified Qualifiers: URI type: unspecified URI Qualified Code(s): J06.9 - Acute upper respiratory infection, unspecified Plan: Cough likely resultant from prolonged symptoms after URI. Given normal physical examination, we elected not to perform any imaging at this time. We discussed potential treatment options, and we will try a [id number] Mucinex and I also sent a cough suppressant for him so that he can sleep through the night. We reviewed likelihood that his elevated heart rate with cough and standing is appropriate at this time, and given that he does not have cool elaborating symptoms, I advised him to follow up with his PCP after his URI has resolved if the elevated heart rate persist. Plan See above for full details and plan. Medications: New benzonatate 100 mg PO TID 5 days PRN 15 caps 0RF Cough Coding Level of Care Code Est Pt Level 3 (12222) Diagnoses Upper respiratory tract infection, unspecified type J06.9 URI type: unspecified URI
[2024-04-05 08:35] VITALS: BP 122/80; PULSE 90; TEMP 36.7; O2SAT 98
== END 2024-04-05 09:21 | disposition home or self-care (01) ==
PROVIDERS: PCP Physician Assistant; Visit Provider Registered Nurse
DX: J06.9 Acute upper respiratory infection, unspecified (principal)

== ENCOUNTER → 2024-04-05 08:27 | Outpatient (BNVA) | payer OTHER, SELFPAY | PROVIDERS: PCP Physician Assistant; Visit Provider Registered Nurse | DX: J06.9 Acute upper respiratory infection, unspecified (principal) | CPT/HCPCS: 99212 ==

== ENCOUNTER 2024-04-10 14:51 | Outpatient (AMB) | payer OTHER, SELFPAY ==
[2024-04-10 15:15] VITALS: BP 150/100; PULSE 89; O2SAT 96; BMI 35.1
--- NOTE | 2024-04-10 15:15 | A.OFFPC_ITS ---
Vital Signs 04/10/24 15:15 Height 6 ft Weight 258 lb 8 oz BMI 35.1 BP 150/100 H Blood Pressure Location Lt brachial Position Sitting Pulse 89 Pulse Source Pulse Oximeter Pulse Oximetry (%) 96 Oxygen Delivery Method Room Air Intake Visit Reasons: Fever , cold , cough Intake Note: The patient is presenting with an ongoing cough producing phlegm and an elevated heart rate upon standing. The patient reports recent exposure to pneumonia. Around [place], the patient experienced a high fever (102?F) at night for 3-4 days, accompanied by mild diarrhea, which has since resolved. Director Of Sports Performance Required: No Accompanied by: Self / Same As Patient Allergies fluoxetine Adverse Reaction (Severe, Verified 04/10/24 15:22) giuliana haloperidol [From Haldol] Adverse Reaction (Intermediate, Verified 04/10/24 15:22) Tremor Medication List - Last Reconciled 04/10/24 by Brian Collins PA-C benzonatate 100 mg PO TID PRN 5 days cariprazine (Vraylar) 1.5 mg PO DAILY cholecalciferol (vitamin D3) 50 mcg (2 x 25 mcg (1,000 unit)) PO DAILY lamotrigine 100 mg PO BEDTIME lithium carbonate 900 mg (3 x 300 mg) PO BID multivitamin (Daily-Violeta tablet) 1 tab PO DAILY Tobacco use date assessed: 01/17/24 Dental Screening Dental Screen Date: 01/17/24 HPI Fever , cold , cough HPI Details The patient is a 24-year-old male presenting with a persistent cough and episodes of elevated heart rate. Approximately around , the patient experienced a fever reaching 102?F at night for about three days, which subsided with the use of acetaminophen, experiencing associated chills and body aches. Following the fever, a cough developed and has persisted for nearly three weeks. He reports worsening of the cough and the presence of wheezing, especially upon deep breathing, accompanied by coughing fits. The patient was previously evaluated at a walk-in center where a cough suppressant and Mucinex were recommended, and there was a suggestion for the potential use of an inhaler or steroids. The patient has noted yellowish sputum with daily expectoration. He reports episodes of tachycardia where his heart rate rises to around 120 beats per minute upon standing from a seated position, which is atypical for him and started after the initial fever subsided. The patient?s mother is currently experiencing a similar cough, and one of his neighbors has tested positive for pneumonia. The patient's lungs were assessed at the walk-in center and were described as sounding tight. [facility] Medical History Acute respiratory failure Schizoaffective disorder, bipolar type Fibroepithelial polyp No known health problems Bipolar 1 disorder with moderate giuliana Depression Anxiety Surgical History S/P colonoscopy H/O endoscopy Family History Mother Alcohol abuse Mental problem Father Alcohol abuse Mental problem Melanoma Social History Household Members: Family Household Members Other:: mom and brother Housing: House Do you presently have visiting nurse or other home services: No Unable to assess alcohol history related to: Unknown Alcohol intake: never Comment: none Patient Tobacco Use Status: Never used Tobacco e-Cigarette/Vaping Use: Never Used Second Hand Smoke Exposure: No service: No Current occupational status: unemployed and disabled Current occupation: Student - Online Sexual orientation: Straight/Heterosexual Cognitive needs: No Hearing needs: No Vision needs: No Questionnaire Thrive Questionnaire Date Thrive assessed: 07/01/23 AUDIT C Alcohol Use Questionnaire (AUDIT-C) 3. How often do you have six or more drinks on one occasion?: Never Total Score: 0 OVIDIO-7 AMB Questionnaire OVIDIO-7 Date OVIDIO - 7 assessed: 01/17/24 Source: Developed by Drs. Gino Shelton, Shari Duong, Héctor Alves and colleagues, with an educational allison from [employer] Review of Systems Const Denies headache(s) Eyes Denies loss of vision ENT Denies vertigo, Denies dizziness, Denies headache(s) and Denies sore throat Card Denies chest pain, Denies leg edema and Denies lightheadedness Resp Denies cough, Denies hemoptysis and Denies wheezing GI Denies abdominal pain, Denies melena, Denies constipation, Denies diarrhea and Denies vomiting Denies dysuria, Denies urinary frequency and Denies urinary urgency Musc Denies arthralgias, Denies joint swelling, Denies numbness and Denies tingling Neuro Denies Abnormal speech present, Denies behavioral changes, Denies vertigo, Denies dizziness, Denies headache(s), Denies loss of vision, Denies memory loss, Denies numbness and Denies tingling Psych Denies anxiety, Denies behavioral changes, Denies depression, Denies memory loss and Denies panic attacks Cezar/Lymph Denies easy bleeding and Denies easy bruising Aller/Immun Denies wheezing Physical exam (Primary Care) Vital Signs: Last Vital Signs Pulse 89 04/10/24 15:15 BP 150/100 H 04/10/24 15:15 Pulse Ox 96 04/10/24 15:15 Oxygen Delivery Method Room Air 04/10/24 15:15 BMI result Body Mass Index 35.1 Tobacco/Smoking Status: Tobacco use Status Tobacco use date assessed 01/17/24 04/10/24 15:19 Patient Tobacco Use Status Never used Tobacco 04/10/24 15:19 e-Cigarette/Vaping Use Never Used 04/10/24 15:19 Thrive Assessment: Date of Thrive Assessment Date Thrive assessed 07/01/23 04/10/24 15:19 Const General: healthy appearing, no acute distress, alert and awake Nutritional Appearance: well nourished Orientation/consciousness: oriented to person, oriented to place and oriented to time HENMT Ears: TM's normal bilaterally General nose exam: Normal nasal mucous membranes and turbinates present Eyes Conjunctivae: conjunctivae normal Sclerae: sclerae normal Pupils: Equal, round and reactive pupils present Neck Neck: Yes no lymphadenopathy and Yes no JVD Thyroid: Thyroid normal Carotids: no bruits Resp Other: Cough during exam Effort & Inspection: normal respiratory effort and not tachypneic Auscultation: no crackles, no rales, rhonchi and wheezes Cardio Rate: regular rate Rhythm: regular rhythm Heart sounds: no murmurs and normal S1 and S2 GI Palpation (GI): Soft to palpation, nontender, no hepatomegaly and no splenomegaly Auscultation: normal bowel sounds Skin General skin exam: no rashes or lesions noted and dry skin Neuro General: oriented to person, oriented to place and oriented to time Cranial nerves: Yes Equal, round and reactive pupils present Speech: No Abnormal speech present Gait exam (Neuro): Normal gait present Motor exam (neuro): no tremor noted Extrem Right upper extremity: full ROM Left upper extremity: full ROM Right lower extremity: full ROM; no edema Left lower extremity: full ROM; no edema Psych Mental Status: mental status grossly normal Speech and movement: Normal speech and movement present Affect: normal affect Attitude: cooperative Thought process: Normal thought process present Coding Level of Care Code Est Pt Level 3 (69186) Diagnoses Bronchitis J40 Assessment & Plan Assessment & Plan (1) Bronchitis: Code(s): J40 - Bronchitis, not specified as acute or chronic Category: Medical Plan: Prescribe azithromycin as an antibiotic treatment. - Administer a short course of prednisone with caution due to potential psychiatric side effects. - Provide an albuterol inhaler for symptomatic relief during coughing fits. - Order chest X-ray to rule out pulmonary infiltrates. Orders: Orders XR chest 2V 04/10/24 J40 - Bronchitis, not specified as acute or chronic Medications: New albuterol sulfate 90 mcg/actuation 1 inh inhalation QID 30 days PRN 8.5 grams 0RF shortness of breath or wheezing J40 - Bronchitis, not specified as acute or chronic prednisone 20 mg PO DAILY 5 days 5 tabs 0RF J40 - Bronchitis, not specified as acute or chronic azithromycin For 250 mg dose pack: take 500 mg today (day 1), then 250 mg for 4 days (days 2-5) PO 6 tabs 0RF J40 - Bronchitis, not specified as acute or chronic
== END 2024-04-10 15:29 | disposition home or self-care (01) ==
PROVIDERS: PCP Physician Assistant; Visit Provider Physician Assistant
DX: J40 Bronchitis, not specified as acute or chronic (principal)

== ENCOUNTER 2024-04-10 14:51 | Outpatient (REF) | payer OTHER, SELFPAY ==
--- NOTE | ~2024-04-10 | XR_ITS ---
EXAMINATION: XR CHEST CLINICAL INFORMATION: J40 - Bronchitis, not specified as acute or chronic COMPARISON: 06/30/2023 TECHNIQUE: 2 views of the chest were obtained. FINDINGS: No significant abnormality is noted involving the heart, lungs, mediastinum, bony thorax or soft tissues. XR/XR chest 2V IMPRESSION: No acute disease Electronically signed by: Darnell Irving MD 04/11/2024 08:51 AM [facility]
== END 2024-04-10 14:52 | disposition home or self-care (01) ==
LOC: HO.XRAY 14:51
PROVIDERS: PCP Physician Assistant; Visit Provider Physician Assistant
DX: J40 Bronchitis, not specified as acute or chronic (principal)
CPT/HCPCS: 71046; 99212

== ENCOUNTER 2024-05-18 10:36 | Outpatient (REF) | payer OTHER, SELFPAY ==
[2024-05-18 11:04] LABS: MANUAL DIFF FLAG NO
[2024-05-18 11:24] LABS: Basophils Absolute Auto 0.1 X10*3/uL (0.0-0.2); Eosinophils Absolute Auto 0.2 X10*3/uL (0.0-0.4); Eosinophils Percent Auto 2.5 % (0-4); Hematocrit 45.5 % (42.0-52.0); Imm Gran Abs Auto 0.02 X10*3/uL (0.00-0.03); Imm Gran Pct Auto 0.3 % (0.0-0.4); Lymphocytes Absolute Auto 1.7 X10*3/uL (1.2-4.9); Lymphocytes Percent Auto 27.1 % (20-40); Mean Corpuscular Hemoglobin 28.1 pg (27.0-33.0); Mean Corpuscular Volume 85.4 fL (80.0-98.0); Mean Platelet Volume 11.5 fL (9.4-12.4); Monocytes Absolute Auto 0.6 X10*3/uL (0.1-1.2); Monocytes Percent Auto 10.2 % (2-11); Neutrophils Absolute Auto 3.7 x10*3/uL (2.0-8.3); Neutrophils Percent Auto 58.9 % (45-73); Platelet Count 242 X10*3/uL (160-400); Red Blood Count 5.33 X10*6/uL (4.60-5.80); Red Cell Distribution Width 13.2 % (11.0-16.0); White Blood Count 6.3 X10*3/uL (4.8-10.8)
[2024-05-18 12:02] LABS: Alanine Aminotransferase 41 U/L (0-40); Albumin Level 4.7 g/dL (3.5-5.0); Anion Gap 11 (12-20); Aspartate Amino Transferase 30 U/L (5-37); Bilirubin Total 0.4 mg/dL (0.0-1.0); Blood Urea Nitrogen 13 mg/dL (9-16); Calcium 9.5 mg/dL (8.4-10.2); Carbon Dioxide 25 mmol/L (22-29); Chloride 108 mmol/L (96-108); Estimated Glomerular Filt Rate > 60; Glucose Fasting 109 mg/dL (60-99); Glucose Random 108 mg/dL (60-115); Sodium 140 mmol/L (135-145); Total Protein 7.5 g/dL (6.5-8.0)
[2024-05-18 12:06] LABS: Estimated Average Glucose 97 mg/dL; Hemoglobin A1C 123.4584 umol/L; Total Hemoglobin (HGBA1C) 3944.6818 umol/L
[2024-05-18 12:29] LABS: Free T4 (Free Thyroxine) 1.05 ng/dL (0.71-1.85); Insulin 16 uU/mL (2-29); T4 Thyroxine 5.6 ug/dL (4.5-12.0); Thyroid Stimulating Hormone 0.76 uIU/mL (0.32-4.0); Vitamin D 25-OH Total 56.8 ng/mL (>30)
[2024-05-18 12:34] LABS: Folate 11.8 ng/mL (> or = 4.0); Vitamin B12 427 pg/mL (200-900)
[2024-05-18 12:43] LABS: Alkaline Phosphatase 52 U/L (39-117)
[2024-05-19 09:38] LABS: Triiodothyronine T3 Free 4.1 pg/mL (2.3-4.2); Triiodothyronine T3 Total 99 ng/dL (76-181)
[2024-05-22 09:48] LABS: Triiodothyronine T3 Reverse 13 ng/dL (8-25)
== END 2024-05-18 10:37 | disposition home or self-care (01) ==
LOC: HO.LAB 10:36
PROVIDERS: PCP Physician Assistant; Visit Provider Psychiatry & Neurology Psychiatry
DX: E03.9 Hypothyroidism, unspecified (principal); E07.81 Sick-euthyroid syndrome; R73.03 Prediabetes; R53.82 Chronic fatigue, unspecified
CPT/HCPCS: 36415; 80053; 82306; 82607; 82746; 83036; 83525; 84436; 84439; 84443; 84480; 84481; 84482; 85025

== ENCOUNTER 2024-06-13 17:27 | Emergency (ER) | payer OTHER, SELFPAY ==
[2024-06-13 17:34] VITALS: BP 138/92; BP 156/82; PULSE 103; PULSE 88; RESP 16; TEMP 37.6; O2SAT 96; O2SAT 98; BMI 27.5
[2024-06-13 17:43] VITALS: RESP 16
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
[2024-06-13] MEDS: Ibuprofen 600 MG TABLET PO (18:25)
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
--- NOTE | 2024-06-13 19:18 | PC.NURSE ---
pt remains calm and cooperative, was able to recount his medications and the last time he took them. he reports he is compliant with his medications. Patient denies SI/HI/AH/VH at this time
[2024-06-13 19:22] LABS: Basophils Absolute Auto 0.1 X10*3/uL (0.0-0.2); Basophils Percent Auto 0.9 % (0-2); Eosinophils Absolute Auto 0.2 X10*3/uL (0.0-0.4); Eosinophils Percent Auto 1.3 % (0-4); Hematocrit 43.5 % (42.0-52.0); Hemoglobin 14.7 g/dl (14.0-18.0); Imm Gran Abs Auto 0.07 X10*3/uL (0.00-0.03); Imm Gran Pct Auto 0.5 % (0.0-0.4); Lymphocytes Absolute Auto 2.4 X10*3/uL (1.2-4.9); Lymphocytes Percent Auto 17.5 % (20-40); MANUAL DIFF FLAG SCAN; Mean Corpuscular HGB Conc 33.8 g/dl (31.0-36.0); Mean Corpuscular Hemoglobin 28.3 pg (27.0-33.0); Mean Corpuscular Volume 83.8 fL (80.0-98.0); Mean Platelet Volume 11.7 fL (9.4-12.4); Monocytes Absolute Auto 1.6 X10*3/uL (0.1-1.2); Monocytes Percent Auto 11.7 % (2-11); Neutrophils Absolute Auto 9.3 x10*3/uL (2.0-8.3); Neutrophils Percent Auto 68.1 % (45-73); Platelet Count 258 X10*3/uL (160-400); Red Blood Count 5.19 X10*6/uL (4.60-5.80); Red Cell Distribution Width 13.7 % (11.0-16.0); SCAN SMEAR FLAG 1; White Blood Count 13.6 X10*3/uL (4.8-10.8)
[2024-06-13 19:31] LABS: Lithium 0.23 mmol/L (0.60-1.20)
[2024-06-13 19:39] LABS: Alanine Aminotransferase 36 U/L (0-40); Albumin Level 4.8 g/dL (3.5-5.0); Alkaline Phosphatase 56 U/L (39-117); Anion Gap 12 (12-20); Aspartate Amino Transferase 45 U/L (5-37); Bilirubin Total 0.4 mg/dL (0.0-1.0); Blood Urea Nitrogen 13 mg/dL (9-16); Calcium 9.1 mg/dL (8.4-10.2); Carbon Dioxide 20 mmol/L (22-29); Chloride 112 mmol/L (96-108); Creatinine Clr Calc Pharmacy 140.8; Estimated Glomerular Filt Rate > 60; Ethanol < 10 mg/dL; Glucose Random 118 mg/dL (60-115); Potassium 3.8 mmol/L (3.3-5.1); Sodium 140 mmol/L (135-145); Total Protein 7.7 g/dL (6.5-8.0)
[2024-06-13 19:46] LABS: SLIDE REVIEW VERIFIED
[2024-06-13] MEDS: lamoTRIgine 100 MG TABLET 200 MG PO (20:31)
[2024-06-13] MEDS: OXcarbazepine 300 MG TABLET PO (20:31)
[2024-06-13] MEDS: Cariprazine HCl 1.5 MG CAPSULE PO (20:32)
[2024-06-13] MEDS: Lithium Carbonate 300 MG CAPSULE 900 MG PO (20:32)
[2024-06-13] MEDS: OLANZapine ODT 10 MG TAB.RAPDIS TRANSLINGU (21:00)
--- NOTE | 2024-06-13 21:04 | PC.NURSE ---
Patient began getting agitated, took mattress off bed and started boxing with the mattress . patient continued to punch the mattress but redirected himself. patient then laid under the table in his room and began punching the underside of the table. Pt was encouraged to not do so to allow other patients to rest. patient then attempted to test the pod doors, punching them and pushing on them. Security was called. This RN spoke with patient about potential PRNs. Pt agreeable to 10mg Zyprexa PO. Patient willingly took medication with security present
[2024-06-13] MEDS: Nicotine Polacrilex 2 MG GUM BUCCAL (21:38)
[2024-06-13 21:47] VITALS: PULSE 70; RESP 16; TEMP 37.1; O2SAT 97
--- NOTE | 2024-06-13 22:06 | PC.NURSE ---
Patient appears to be sleeping, respirations even and unlabored, no apparent distress noted at this time
[2024-06-14] MEDS: Nicotine Polacrilex 2 MG GUM BUCCAL ×5 (02:09→15:22)
[2024-06-14] MEDS: LORazepam 1 MG TABLET 2 MG PO (02:30)
[2024-06-14 03:00] LABS: Appearance Urine Clear; Color Urine Yellow; Glucose Urine UA Negative (Negative); Leukocyte Esterase Urine Negative (Negative); Nitrite Urine Negative (Negative); Specific Gravity - Urine >= 1.030 (1.005-1.025); UMIC TRIGGER UACC YES; Urine Blood Negative (Negative); Urine Ketones Negative (Negative); Urine Protein 30 (1+) mg/dL (Neg-Trace)
[2024-06-14 03:06] LABS: Bacteria Urine None Seen (None Seen); Hyaline Casts Urine 0-2 /LPF (0-2); RBC Urine 0-2 /HPF (0-2); Squamous Epithelial Cell Urine 0-2 /HPF (0-2); WBC Urine 0-5 /HPF (0-5)
[2024-06-14 03:10] LABS: Amphetamine Screen Urine Not Detected (Not Detect); Barbiturates, Urine Not Detected (Not Detect); Benzodiazepines Screen Urine Not Detected (Not Detect); Buprenorphine Scr Not Detected (Not Detect); Cannabinoid Screen Urine Not Detected (Not Detect); Cocaine Screen Urine Not Detected (Not Detect); Fentanyl, urine Not Detected (Not Detect); Methadone Screen, Urine Not Detected (Not Detect); Opiate Screen Urine Not Detected (Not Detect); Oxycodone Screen Urine Not Detected (Not Detect); Phencyclidine Screen Urine Not Detected (Not Detect)
--- NOTE | 2024-06-14 05:38 | PC.NURSE ---
Patient is in bed appears sleeping, no distress observed/reported at this time, patient up once for two hours, snacked/listened to music/did some wandering, disposition per care team is sec-12 inpatient bed search, VSS, will continue to monitor
[2024-06-14 06:32] VITALS: BP 129/66; PULSE 100; RESP 18; TEMP 36.9; O2SAT 100
--- NOTE | 2024-06-14 08:21 | MHC.CARE ---
Patient has got placement today at [facility], located at [address] [place] [id number], ETA 4PM. Dr Reyes is the accepting doctor. F25.0 Unspecified Bipolar Disorder. CARE Team is getting the 12 done for us now. RN and [employer] notified to start transport process.
--- NOTE | 2024-06-14 09:07 | PC.NURSE ---
report given to [facility] to YUVAL Perera
--- NOTE | 2024-06-14 09:18 | MHC.CARE ---
[facility] Form successfully sent
[2024-06-14] MEDS: OXcarbazepine 300 MG TABLET PO (09:43)
[2024-06-14] MEDS: Multivitamin TABLET 1 TAB PO (09:44)
[2024-06-14] MEDS: Lithium Carbonate 300 MG CAPSULE 600 MG PO (09:44)
[2024-06-14] MEDS: Ibuprofen 600 MG TABLET PO (09:45)
--- NOTE | 2024-06-14 10:34 | PC.NURSE ---
pt ate breakfast, slept for approx 90 minutes and then up and active walking in the pod and getting light exercise in his room. very polite with pleases and thank you's, morning meds given as ordered
--- NOTE | 2024-06-14 11:45 | PC.NURSE ---
Assumed care of patient at 1045, patient appears to be in no apparent distress this am, calm and cooperative, ambulating around BH pod listening to music with pod headphones. Patient aware that he is staying at this time, he reports I am not going inpatient, you can't make me go
[2024-06-14] MEDS: LORazepam 1 MG TABLET PO (14:16)
--- NOTE | 2024-06-14 14:31 | PC.NURSE ---
Pt becoming more anxious, stating i feel like punching though a door ; pt then requested an Ativan to help calm done; pt medicated per request; care operations team leader present and speaking with pt
--- NOTE | 2024-06-14 15:20 | PC.NURSE ---
Pt verbalizes understand that he is going to [facility], pt is excited to go, talking about staff he remembers and memories he had
[2024-06-14] MEDS: chlorproMAZINE HCl 25 MG TABLET PO (15:22)
[2024-06-14 15:49] VITALS: BP 119/76; PULSE 76; RESP 16; TEMP 36.3; O2SAT 99
== END 2024-06-14 15:51 ==
PROVIDERS: Emergency Provider Emergency Medicine Emergency Medical Services; PCP Physician Assistant
DX: F25.9 Schizoaffective disorder, unspecified (principal); Z51.81 Encounter for therapeutic drug level monitoring; Z79.899 Other long term (current) drug therapy
CPT/HCPCS: 36415; 80053; 80178; 80307; 81001; 81003; 85025; 99285; S9485

== ENCOUNTER 2024-07-02 03:39 | Emergency (ER) | payer OTHER, SELFPAY ==
[2024-07-02 03:45] VITALS: BP 144/74; PULSE 119; RESP 18; TEMP 37; O2SAT 95; BMI 34.3
[2024-07-02] MEDS: LORazepam 1 MG TABLET 2 MG PO (04:39)
--- NOTE | 2024-07-02 04:48 | ED_ITS ---
HPI - Psych General Chief Complaint: Psychiatric Symptoms Stated Complaint: HI, SI Time Seen by Provider: 07/02/24 04:48 Source: patient Mode of arrival: ambulatory Limitations: no limitations History of Present Illness ED Provider: HPI Narrative: Patient has schizoaffective disorder depression been here multiple times comes here as he feeling unsafe with homicidal suicidal feeling with plan to drive his car off a rojelio having auditory hallucinations people screaming help me. Related Data Home Medications ?Medication ?Instructions ?Recorded ?Confirmed cariprazine 1.5 mg capsule 1.5 mg PO BEDTIME 01/17/24 06/13/24 (Vraylar) lamotrigine 100 mg tablet 200 mg PO BEDTIME 06/13/24 07/02/24 lithium carbonate 300 mg capsule 900 mg PO BEDTIME 06/13/24 07/02/24 lithium carbonate 300 mg tablet 600 mg PO DAILY 06/13/24 07/02/24 oxcarbazepine 300 mg tablet 300 mg PO BID 06/13/24 06/13/24 ascorbic acid (vitamin C) 1,000 mg 1,000 mg DAILY 07/02/24 07/02/24 tablet cariprazine 1.5 mg capsule 1.5 mg PO QPM 07/02/24 07/02/24 (Vraylar) olanzapine 10 mg tablet 10 mg PO BEDTIME 07/02/24 07/02/24 olanzapine 5 mg tablet 5 mg PO DAILY psychosis 07/02/24 07/02/24 omega 2-jus-bvc-fish oil 1,200 mg 2 cap PO DAILY 07/02/24 07/02/24 (144 mg-216 mg) capsule (Fish Oil) oxcarbazepine 300 mg tablet 300 mg BID 07/02/24 07/02/24 propranolol 10 mg tablet 10 mg PO BID PRN anxiety 07/02/24 07/02/24 quetiapine 25 mg tablet 25 mg PO BID PRN Agitation 07/02/24 07/02/24 trazodone 50 mg tablet 50 mg PO BEDTIME insomnia 07/02/24 07/02/24 Previous Rx's ?Medication ?Instructions ?Recorded multivitamin (Daily-Violeta tablet) 1 tab PO DAILY #30 tabs 07/07/23 Allergies Allergy/AdvReac Type Severity Reaction Status Date / Time fluoxetine AdvReac Severe giuliana Verified 07/02/24 03:46 haloperidol [From Haldol] AdvReac Intermediate Tremor Verified 07/02/24 03:46 chlorpromazine AdvReac Unknown Verified 07/02/24 03:46 [From Thorazine] Review of Systems 2 Review of Systems: Yes all other systems are reviewed and are negative [facility] Past Medical History Medical History Acute respiratory failure Schizoaffective disorder, bipolar type Fibroepithelial polyp No known health problems Bipolar 1 disorder with moderate giuliana Depression Anxiety Surgical History S/P colonoscopy H/O endoscopy Family History Family History Mother Alcohol abuse Mental problem Father Alcohol abuse Mental problem Melanoma Social History Social History Household Members: Family Household Members Other:: mom and brother Housing: House Do you presently have visiting nurse or other home services: No Unable to assess alcohol history related to: Unknown Alcohol intake: current Alcohol intake frequency: a few times a month Alcohol type: hard liquor Comment: none Patient Tobacco Use Status: Never used Tobacco e-Cigarette/Vaping Use: Never Used Second Hand Smoke Exposure: No Use of substances other than those prescribed or required for medical reasons: Yes Substance Use Type: Marijuana Substance Use Type Other:: few times per week Advance Directives: No Advance Directives Information Provided: Yes Do you have a plan to hurt others: Vague service: No Current occupational status: unemployed and disabled Current occupation: Student - Online Sexual orientation: Straight/Heterosexual Cognitive needs: No Hearing needs: No Vision needs: No Physical Exam 2 Vital Signs: Vital Signs: Last Vital Signs Temp 98.5 F 07/02/24 06:19 Pulse 95 07/02/24 06:19 Resp 19 07/02/24 06:19 BP 142/82 H 07/02/24 06:19 Pulse Ox 100 07/02/24 06:19 O2 Del Method Room Air 07/02/24 06:19 BMI result Body Mass Index 34.3 Appearance: Alert. Oriented X3. No acute distress. Anxious agitated Eyes: PERRLA, No Nystagmus ENT: Pharynx normal. Oral Mucosa moist Neck: Normal inspection. Neck supple. CVS: Normal heart rate and rhythm. Pulses normal. Respiratory: No respiratory distress. Equal air entry bilateral, no wheezing/rales/rhonchi Abdomen: Soft and nontender. Bowel sounds are present, no mass palpable, no CVA tenderness Skin: Skin warm and dry. Normal skin color. Normal skin turgor. Extremities: No lower extremity edema. No calf tenderness Psych: Suicidal anxious with auditory hallucination Neuro: Oriented X 3. No motor deficit. No sensory deficit.No cerebellar signs , cranial nerves II-XII intact Medications Administered Discontinued Medications Generic Name Dose Route Start Last Admin Trade Name Freq PRN Reason Stop Dose Admin Chlorpromazine HCl 100 mg 07/02/24 04:49 07/02/24 04:52 Chlorpromazine Hcl 100 Mg Tablet PO 07/02/24 04:50 100 mg ONCE ONE Administration Lorazepam 2 mg 07/02/24 04:36 07/02/24 04:39 Lorazepam 1 Mg Tablet PO 07/02/24 04:37 2 mg ONCE ONE Administration Medical Decision Making Medical Decision Making [facility] Narrative: Patient with schizoaffective disorder with psychotic features with SI will get care team involved for evaluation Lab Data MDM Lab Attestation statement: I reviewed the patient's lab results. 07/02/24 04:44 07/02/24 04:43 Labs: Lab Results 07/02/24 07/02/24 Range/Units 04:43 04:44 WBC 10.7 (4.8-10.8) X10*3/uL RBC 4.98 (4.60-5.80) X10*6/uL Hgb 14.1 (14.0-18.0) g/dl Hct 42.0 (42.0-52.0) % MCV 84.3 (80.0-98.0) fL MCH 28.3 (27.0-33.0) pg MCHC 33.6 (31.0-36.0) g/dl RDW 13.6 (11.0-16.0) % Plt Count 286 (160-400) X10*3/uL MPV 11.0 (9.4-12.4) fL Immature Gran % (Auto) 0.3 (0.0-0.4) % Neut % (Auto) 61.9 (45-73) % Lymph % (Auto) 23.1 (20-40) % [place] % (Auto) 12.8 H (2-11) % Eos % (Auto) 1.2 (0-4) % Baso % (Auto) 0.7 (0-2) % Lymph # (Auto) 2.5 (1.2-4.9) X10*3/uL [place] # (Auto) 1.4 H (0.1-1.2) X10*3/uL Eos # (Auto) 0.1 (0.0-0.4) X10*3/uL Baso # (Auto) 0.1 (0.0-0.2) X10*3/uL Abs Immat Gran (auto) 0.03 (0.00-0.03) X10*3/uL Absolute Neuts (auto) 6.7 (2.0-8.3) x10*3/uL Absolute Nucleated RBC 0.000 (0.0-0.012) X10*3/uL Nucleated RBC % (auto) 0.0 (0.0-0.2) /100WBC Sodium 140 (135-145) mmol/L Potassium 3.4 (3.3-5.1) mmol/L Chloride 110 H (96-108) mmol/L Carbon Dioxide 20 L (22-29) mmol/L Anion Gap 13 (12-20) BUN 16 (9-16) mg/dL Creatinine 0.81 (0.5-1.4) mg/dL Estim Creat Clear Calc 185.9 Estimated GFR > 60 Random Glucose 111 (60-115) mg/dL Calcium 9.0 (8.4-10.2) mg/dL Urine Opiates Screen Not Detected (Not Detect) Ur Buprenorphine Scrn Not Detected (Not Detect) ng/mL Ur Oxycodone Screen Not Detected (Not Detect) ng/mL Urine Methadone Screen Not Detected (Not Detect) ng/mL Urine Fentanyl Screen Not Detected (Not Detect) Ur Barbiturates Screen Not Detected (Not Detect) Ur Phencyclidine Scrn Not Detected (Not Detect) Ur Amphetamines Screen Not Detected (Not Detect) U Benzodiazepines Scrn Not Detected (Not Detect) Urine Cocaine Screen Not Detected (Not Detect) U Marijuana (THC) Screen Not Detected (Not Detect) Ethyl Alcohol < 10 mg/dL Discharge Plan Discharge Clinical Impression: Chronic schizophrenia, Suicidal ideation, Bipolar disorder Patient Disposition: Still a Patient Prescriptions: No Action quetiapine 25 mg tablet 25 mg PO BID PRN (Reason: Agitation) ascorbic acid (vitamin C) 1,000 mg tablet 1,000 mg DAILY trazodone 50 mg tablet 50 mg PO BEDTIME olanzapine 5 mg tablet 5 mg PO DAILY olanzapine 10 mg tablet 10 mg PO BEDTIME oxcarbazepine 300 mg tablet 300 mg BID propranolol 10 mg tablet 10 mg PO BID PRN (Reason: anxiety) omega 3-cks-ujo-fish oil [Fish Oil] 1,200 (144-216) mg capsule 2 cap PO DAILY Vraylar 1.5 mg capsule 1.5 mg PO QPM multivitamin [Daily-Violeta] Tablet 1 tab PO DAILY Qty: 30 0RF oxcarbazepine 300 mg tablet 300 mg PO BID lithium carbonate 300 mg Capsule 900 mg PO BEDTIME lithium carbonate 300 mg tablet 600 mg PO DAILY lamotrigine 100 mg tablet 200 mg PO BEDTIME Vraylar 1.5 mg capsule 1.5 mg PO BEDTIME Interventions: [place]quois-Suicide Risk Severity Scale Last Done: 07/02/24 04:05 Print Language: German
[2024-07-02 04:50] LABS: MANUAL DIFF FLAG NO
[2024-07-02 04:51] LABS: Basophils Absolute Auto 0.1 X10*3/uL (0.0-0.2); Basophils Percent Auto 0.7 % (0-2); Eosinophils Absolute Auto 0.1 X10*3/uL (0.0-0.4); Eosinophils Percent Auto 1.2 % (0-4); Hemoglobin 14.1 g/dl (14.0-18.0); Imm Gran Abs Auto 0.03 X10*3/uL (0.00-0.03); Imm Gran Pct Auto 0.3 % (0.0-0.4); Lymphocytes Absolute Auto 2.5 X10*3/uL (1.2-4.9); Lymphocytes Percent Auto 23.1 % (20-40); Mean Corpuscular HGB Conc 33.6 g/dl (31.0-36.0); Mean Corpuscular Hemoglobin 28.3 pg (27.0-33.0); Mean Corpuscular Volume 84.3 fL (80.0-98.0); Monocytes Absolute Auto 1.4 X10*3/uL (0.1-1.2); Monocytes Percent Auto 12.8 % (2-11); Neutrophils Absolute Auto 6.7 x10*3/uL (2.0-8.3); Neutrophils Percent Auto 61.9 % (45-73); Platelet Count 286 X10*3/uL (160-400); Red Blood Count 4.98 X10*6/uL (4.60-5.80); Red Cell Distribution Width 13.6 % (11.0-16.0); White Blood Count 10.7 X10*3/uL (4.8-10.8)
[2024-07-02] MEDS: chlorproMAZINE HCl 100 MG TABLET PO (04:52)
--- NOTE | 2024-07-02 04:53 | PC.NURSE ---
Patient medicated with Lorazepam 2 mg PO for anxiety, restlessness. Patient reports he is being bothered by the voices screaming help me , patient found punching tong in his room. Patient was easily re directed. Patient requested Thorazine [address] Hartmann notified. Patient medicated per JUL. Patient currently sitting by the nursing station, patient given vanilla pudding, milk with sun butter sandwich, tolerating well. Patient offers no complaints at this time.
[2024-07-02 05:02] LABS: Amphetamine Screen Urine Not Detected (Not Detect); Barbiturates, Urine Not Detected (Not Detect); Benzodiazepines Screen Urine Not Detected (Not Detect); Buprenorphine Scr Not Detected (Not Detect); Cannabinoid Screen Urine Not Detected (Not Detect); Cocaine Screen Urine Not Detected (Not Detect); Fentanyl, urine Not Detected (Not Detect); Methadone Screen, Urine Not Detected (Not Detect); Opiate Screen Urine Not Detected (Not Detect); Oxycodone Screen Urine Not Detected (Not Detect); Phencyclidine Screen Urine Not Detected (Not Detect)
[2024-07-02 05:04] LABS: Anion Gap 13 (12-20); Blood Urea Nitrogen 16 mg/dL (9-16); Carbon Dioxide 20 mmol/L (22-29); Chloride 110 mmol/L (96-108); Creatinine Clr Calc Pharmacy 185.9; Estimated Glomerular Filt Rate > 60; Ethanol < 10 mg/dL; Glucose Random 111 mg/dL (60-115); Potassium 3.4 mmol/L (3.3-5.1); Sodium 140 mmol/L (135-145)
[2024-07-02 06:19] VITALS: BP 142/82; PULSE 95; RESP 19; TEMP 36.9; O2SAT 100
--- NOTE | 2024-07-02 07:10 | PC.NURSE ---
Care of Pt assumed at change of shift. Pt is currently resting on the floor with his pillow and mattress. (+) rise and fall of chest noted.
--- NOTE | 2024-07-02 07:47 | PC.NURSE ---
Pt is awake and eats breakfast. Pt requests to take shower. business unit manager assists with setting up shower for Pt.
[2024-07-02] MEDS: Lithium Carbonate 300 MG CAPSULE 600 MG PO (08:09)
[2024-07-02] MEDS: OXcarbazepine 300 MG TABLET PO (08:09)
[2024-07-02] MEDS: OLANZapine 5 MG TABLET PO (08:09)
--- NOTE | 2024-07-02 11:04 | PC.NURSE ---
Call received from Pts mother inquiring about a status update. Pt did not give this RN verbal permission to speak with his mother at this time. Mother made aware that Pt did not permit status update; mother verbally demonstrated understanding. Mother asks if Pt could call her at some point and mother assure Pt would be made aware of her request.
--- NOTE | 2024-07-02 12:21 | PC.NURSE ---
Care Team at bedside.
[2024-07-02] MEDS: QUEtiapine Fumarate 25 MG TABLET PO (13:11)
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
[2024-07-02 17:31] VITALS: BP 142/82; PULSE 95; RESP 19; TEMP 36.9; O2SAT 100
== END 2024-07-02 17:32 | disposition home or self-care (01) ==
PROVIDERS: Emergency Provider Internal Medicine
DX: F25.1 Schizoaffective disorder, depressive type (principal); R45.851 Suicidal ideations; F31.9 Bipolar disorder, unspecified; Z51.81 Encounter for therapeutic drug level monitoring; Z79.899 Other long term (current) drug therapy
CPT/HCPCS: 36415; 80048; 80307; 85025; 99285; S9485

== ENCOUNTER 2024-07-03 23:50 | Emergency (ER) | payer OTHER, SELFPAY ==
--- NOTE | 2024-07-03 23:39 | ED.GENADULT ---
HPI - General Adult General Chief complaint: Psychiatric Symptoms Stated complaint: crisis History of Present Illness ED Provider: Roselyn ROBLES narrative: The patient is a 24-year-old male with a history of schizoaffective disorder and multiple ER visits for exacerbations of his chronic psychiatric conditions. He has a history of agitated and violent behavior. The patient was recently in the emergency room yesterday. He had presented to the emergency department in the early breastfeeding care specialist yesterday on July 02 at 3:45AM. At that point he has been complaining of feeling homicidal and suicidal with a plan to drive his car off a rojelio. He was kept in the emergency room during most of the day on July 02. It was determined that he might has been taking his olanzapine in the morning rather than in the evening. He seemed much calmer by the end of the day and was eager to go home. His mother was comfortable with him coming home. He was discharged yesterday afternoon at around 5:30 PM. Today the patient says that he feels as if he is manic. He feels he might have trouble controlling his behavior if he does not receive medication. He is requesting injections of chlorpromazine and lorazepam and is also requesting Seroquel. Related Data Home Medications ?Medication ?Instructions ?Recorded ?Confirmed lamotrigine 100 mg tablet 200 mg PO BEDTIME 06/13/24 07/02/24 lithium carbonate 300 mg capsule 900 mg PO BEDTIME 06/13/24 07/02/24 lithium carbonate 300 mg tablet 600 mg PO DAILY 06/13/24 07/02/24 ascorbic acid (vitamin C) 1,000 mg 1,000 mg DAILY 07/02/24 07/02/24 tablet cariprazine 1.5 mg capsule 1.5 mg PO QPM 07/02/24 07/02/24 (Vraylar) olanzapine 10 mg tablet 10 mg PO BEDTIME 07/02/24 07/02/24 olanzapine 5 mg tablet 5 mg PO DAILY psychosis 07/02/24 07/02/24 omega 5-pql-kyh-fish oil 1,200 mg 2 cap PO DAILY 07/02/24 07/02/24 (144 mg-216 mg) capsule (Fish Oil) oxcarbazepine 300 mg tablet 300 mg BID 07/02/24 07/02/24 propranolol 10 mg tablet 10 mg PO BID PRN anxiety 07/02/24 07/02/24 quetiapine 25 mg tablet 25 mg PO BID PRN Agitation 07/02/24 07/02/24 trazodone 50 mg tablet 50 mg PO BEDTIME insomnia 07/02/24 07/02/24 Allergies Allergy/AdvReac Type Severity Reaction Status Date / Time fluoxetine AdvReac Severe giuliana Verified 07/04/24 00:14 haloperidol [From Haldol] AdvReac Intermediate Tremor Verified 07/04/24 00:14 chlorpromazine AdvReac Unknown Verified 07/04/24 00:14 [From Thorazine] Review of Systems Review of Systems: Yes all other systems are reviewed and are negative [facility] Past Medical History Medical History Acute respiratory failure Schizoaffective disorder, bipolar type Fibroepithelial polyp No known health problems Bipolar 1 disorder with moderate giuliana Depression Anxiety Surgical History S/P colonoscopy H/O endoscopy Family History Family History Mother Alcohol abuse Mental problem Father Alcohol abuse Mental problem Melanoma Social History Social History Household Members: Family Household Members Other:: mom and brother Housing: House Do you presently have visiting nurse or other home services: No Unable to assess alcohol history related to: Unknown Alcohol intake: current Alcohol intake frequency: a few times a month Alcohol type: hard liquor Comment: none Patient Tobacco Use Status: Never used Tobacco e-Cigarette/Vaping Use: Never Used Second Hand Smoke Exposure: No Substance Use Type: Marijuana Advance Directives: No Do you have a plan to hurt others: No Plan service: No Current occupational status: unemployed and disabled Current occupation: Student - Online Sexual orientation: Straight/Heterosexual Cognitive needs: No Hearing needs: No Vision needs: No Physical Exam ED Vital Signs: Vital Signs - 24 hr 07/04/24 00:07 Temperature 98.6 F Pulse Rate 90 Respiratory Rate 18 Blood Pressure 168/80 H Pulse Oximetry 100 Oxygen Delivery Method Room Air BMI result Body Mass Index 28.6 Const Other: The patient has a large 24-year-old male who was awake and alert. He has a very intense affect. Orientation/consciousness: patient oriented x3 HENMT Other: Face is symmetrical. Mucous membranes moist. Eyes General: appearance normal, both eyes and all related structures Conjunctivae: conjunctivae normal Pupils: Equal, round and reactive pupils present EOM: EOMs intact bilaterally Neck Neck: Yes full ROM Resp Effort & Inspection: normal respiratory effort Auscultation: clear to auscultation bilaterally Cardio Rate: regular rate Rhythm: regular rhythm Heart sounds: S1 normal heart sound present and S2 normal heart sound present GI Other: Abdomen is soft and nontender Skin General skin exam: no rashes or lesions noted Neuro General: patient oriented x3, gait normal, tone normal, moves all extremities, no focal motor deficits and CN's II-XI intact bilaterally Cranial nerves: Yes Equal, round and reactive pupils present Extrem Other: No injuries to the extremities. No peripheral edema. Psych Other: The patient has a very intense and labile affect. He seems very wound up. Medications Administered Discontinued Medications Generic Name Dose Route Start Last Admin Trade Name Genaro PRN Reason Stop Dose Admin Chlorpromazine HCl 200 mg 07/03/24 23:36 07/04/24 00:05 Chlorpromazine Hcl 25 Mg/Ml Ampul IM 07/03/24 23:37 200 mg ONCE ONE Administration Lorazepam 2 mg 07/03/24 23:36 07/04/24 00:05 Lorazepam 2 Mg/Ml Vial IM 07/03/24 23:37 2 mg ONCE ONE Administration Quetiapine Fumarate 25 mg 07/03/24 23:36 07/04/24 00:05 Quetiapine Fumarate 25 Mg Tablet PO 07/03/24 23:37 25 mg ONCE ONE Administration Medical Decision Making Medical Decision Making [facility] Narrative: The patient is a 24-year-old male with a chronic mental illness who returns with increasing mood. He describes himself as manic. He requested medications to help? bring me down. ? He specifically he requested chlorpromazine, lorazepam, and quetiapine. The patient's physical exam is unremarkable aside from his elevated mood and his intense affect. No suggestion of an acute medical process. The patient is medically cleared and will be held in the psychiatric area for evaluation by the care team. The patient will be placed in physician observation. Lab Data 07/04/24 00:51 07/04/24 00:52 Labs: Lab Results 07/04/24 07/04/24 Range/Units 00:51 00:52 WBC 12.2 H (4.8-10.8) X10*3/uL RBC 4.89 (4.60-5.80) X10*6/uL Hgb 13.7 L (14.0-18.0) g/dl Hct 41.8 L (42.0-52.0) % MCV 85.5 (80.0-98.0) fL MCH 28.0 (27.0-33.0) pg MCHC 32.8 (31.0-36.0) g/dl RDW 13.7 (11.0-16.0) % Plt Count 299 (160-400) X10*3/uL MPV 11.4 (9.4-12.4) fL Immature Gran % (Auto) 0.3 (0.0-0.4) % Neut % (Auto) 67.0 (45-73) % Lymph % (Auto) 23.3 (20-40) % [place] % (Auto) 7.8 (2-11) % Eos % (Auto) 1.0 (0-4) % Baso % (Auto) 0.6 (0-2) % Lymph # (Auto) 2.8 (1.2-4.9) X10*3/uL [place] # (Auto) 1.0 (0.1-1.2) X10*3/uL Eos # (Auto) 0.1 (0.0-0.4) X10*3/uL Baso # (Auto) 0.1 (0.0-0.2) X10*3/uL Abs Immat Gran (auto) 0.04 H (0.00-0.03) X10*3/uL Absolute Neuts (auto) 8.2 (2.0-8.3) x10*3/uL Absolute Nucleated RBC 0.000 (0.0-0.012) X10*3/uL Nucleated RBC % (auto) 0.0 (0.0-0.2) /100WBC Sodium 141 (135-145) mmol/L Potassium 3.5 (3.3-5.1) mmol/L Chloride 110 H (96-108) mmol/L Carbon Dioxide 20 L (22-29) mmol/L Anion Gap 15 (12-20) BUN 13 (9-16) mg/dL Creatinine 0.89 (0.5-1.4) mg/dL Estim Creat Clear Calc 159.6 Estimated GFR > 60 Random Glucose 121 H (60-115) mg/dL Calcium 9.4 (8.4-10.2) mg/dL Total Bilirubin 0.3 (0.0-1.0) mg/dL AST 45 H (5-37) U/L ALT 89 H (0-40) U/L Alkaline Phosphatase 72 (39-117) U/L Total Protein 8.0 (6.5-8.0) g/dL Albumin 4.5 (3.5-5.0) g/dL [place] 0.22 L (0.60-1.20) mmol/L Ethyl Alcohol < 10 mg/dL Discharge Plan Discharge Clinical Impression: Bipolar disorder Patient Disposition: Still a Patient Prescriptions: No Action quetiapine 25 mg tablet 25 mg PO BID PRN (Reason: Agitation) ascorbic acid (vitamin C) 1,000 mg tablet 1,000 mg DAILY trazodone 50 mg tablet 50 mg PO BEDTIME olanzapine 5 mg tablet 5 mg PO DAILY olanzapine 10 mg tablet 10 mg PO BEDTIME oxcarbazepine 300 mg tablet 300 mg BID propranolol 10 mg tablet 10 mg PO BID PRN (Reason: anxiety) omega 5-myy-trp-fish oil [Fish Oil] 1,200 (144-216) mg capsule 2 cap PO DAILY Vraylar 1.5 mg capsule 1.5 mg PO QPM lithium carbonate 300 mg Capsule 900 mg PO BEDTIME lithium carbonate 300 mg tablet 600 mg PO DAILY lamotrigine 100 mg tablet 200 mg PO BEDTIME Print Language: Romanian
[2024-07-04] MEDS: QUEtiapine Fumarate 25 MG TABLET PO (00:05)
[2024-07-04] MEDS: chlorproMAZINE HCl 25 MG/ML AMPUL 200 MG IM (00:05)
[2024-07-04] MEDS: LORazepam 2 MG/ML VIAL IM (00:05)
[2024-07-04 00:07] VITALS: BP 168/80; BP 171/92; PULSE 90; RESP 18; TEMP 37; O2SAT 100; O2SAT 98; BMI 28.6
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
[2024-07-04 00:59] LABS: MANUAL DIFF FLAG NO
[2024-07-04 01:01] LABS: Basophils Absolute Auto 0.1 X10*3/uL (0.0-0.2); Basophils Percent Auto 0.6 % (0-2); Eosinophils Absolute Auto 0.1 X10*3/uL (0.0-0.4); Hematocrit 41.8 % (42.0-52.0); Hemoglobin 13.7 g/dl (14.0-18.0); Imm Gran Abs Auto 0.04 X10*3/uL (0.00-0.03); Imm Gran Pct Auto 0.3 % (0.0-0.4); Lymphocytes Absolute Auto 2.8 X10*3/uL (1.2-4.9); Lymphocytes Percent Auto 23.3 % (20-40); Mean Corpuscular HGB Conc 32.8 g/dl (31.0-36.0); Mean Corpuscular Volume 85.5 fL (80.0-98.0); Mean Platelet Volume 11.4 fL (9.4-12.4); Monocytes Percent Auto 7.8 % (2-11); Neutrophils Absolute Auto 8.2 x10*3/uL (2.0-8.3); Platelet Count 299 X10*3/uL (160-400); Red Blood Count 4.89 X10*6/uL (4.60-5.80); Red Cell Distribution Width 13.7 % (11.0-16.0); White Blood Count 12.2 X10*3/uL (4.8-10.8)
[2024-07-04 01:23] LABS: Lithium 0.22 mmol/L (0.60-1.20)
[2024-07-04 01:26] LABS: Alanine Aminotransferase 89 U/L (0-40); Albumin Level 4.5 g/dL (3.5-5.0); Anion Gap 15 (12-20); Aspartate Amino Transferase 45 U/L (5-37); Bilirubin Total 0.3 mg/dL (0.0-1.0); Blood Urea Nitrogen 13 mg/dL (9-16); Calcium 9.4 mg/dL (8.4-10.2); Carbon Dioxide 20 mmol/L (22-29); Chloride 110 mmol/L (96-108); Creatinine Clr Calc Pharmacy 159.6; Estimated Glomerular Filt Rate > 60; Ethanol < 10 mg/dL; Glucose Random 121 mg/dL (60-115); Potassium 3.5 mmol/L (3.3-5.1); Sodium 141 mmol/L (135-145)
[2024-07-04 01:29] LABS: Alkaline Phosphatase 72 U/L (39-117)
[2024-07-04 01:37] LABS: Acetaminophen LAB < 3 mcg/mL (<30); Salicylate < 5.0 mg/dL (15-30)
[2024-07-04 06:09] VITALS: RESP 16
--- NOTE | 2024-07-04 07:40 | PC.NURSE ---
Assumed care of patient at 0645, patient appears to be sleeping, respirations even and unlabored, no apparent distress noted. Patient was given IM medications last night for behavioral concerns per previous RN. Continue plan of care for CARE team anais
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
[2024-07-04] MEDS: OLANZapine 10 MG TABLET PO (09:34)
--- NOTE | 2024-07-04 09:35 | PC.NURSE ---
pt began escalating, attempting to kick out doors, punching the glass on the nurses station. Security called to bedside, verbal order from Dr. Turner for 10mg Zyprexa PO
--- NOTE | 2024-07-04 09:43 | MHC.CARE ---
Pt meets the criteria for IPLOC. Section 12a in chart. Provider in agreement.
[2024-07-04 10:05] LABS: Appearance Urine Clear; Color Urine Yellow; Glucose Urine UA Negative (Negative); Leukocyte Esterase Urine Trace (Negative); Nitrite Urine Negative (Negative); Specific Gravity - Urine >= 1.030 (1.005-1.025); UMIC TRIGGER UACC YES; Urine Blood Negative (Negative); Urine Ketones Negative (Negative); Urine Protein Trace mg/dL (Neg-Trace)
[2024-07-04 10:13] LABS: Amphetamine Screen Urine Not Detected (Not Detect); Bacteria Urine None Seen (None Seen); Barbiturates, Urine Not Detected (Not Detect); Benzodiazepines Screen Urine Not Detected (Not Detect); Buprenorphine Scr Not Detected (Not Detect); Cannabinoid Screen Urine POSITIVE (Not Detect); Cocaine Screen Urine Not Detected (Not Detect); Fentanyl, urine Not Detected (Not Detect); Hyaline Casts Urine 0-2 /LPF (0-2); Methadone Screen, Urine Not Detected (Not Detect); Opiate Screen Urine Not Detected (Not Detect); Oxycodone Screen Urine Not Detected (Not Detect); Phencyclidine Screen Urine Not Detected (Not Detect); RBC Urine 0-2 /HPF (0-2); Squamous Epithelial Cell Urine 0-2 /HPF (0-2); WBC Urine 0-5 /HPF (0-5)
[2024-07-04] MEDS: Lithium Carbonate 300 MG CAPSULE 600 MG PO (10:30)
[2024-07-04] MEDS: OXcarbazepine 300 MG TABLET PO (10:30)
[2024-07-04] MEDS: OLANZapine 5 MG TABLET PO (10:31)
[2024-07-04 10:32] VITALS: BP 148/80; PULSE 117; RESP 20; O2SAT 99
--- NOTE | 2024-07-04 11:19 | MHC.CARE ---
Accepted to [facility] @ [address] [place] [address], ETA 230, transport booked for 1430, facility aware of later ambulance p/u time and confirmed arrival for a later time. Accepting is Dr Demracus Reyes.
--- NOTE | 2024-07-04 11:29 | PHA.MEDREC ---
Pharmacy Consult ? Medication Reconciliation Pharmacy has reviewed the medication reconciliation done by nursing staff.
[2024-07-04] MEDS: QUEtiapine Fumarate 100 MG TABLET PO (12:48)
[2024-07-04] MEDS: Propranolol HCL 10 MG TABLET PO (12:48)
[2024-07-04 18:15] VITALS: BP 136/86; PULSE 96; RESP 16; TEMP 37.2; O2SAT 99
== END 2024-07-04 17:16 ==
PROVIDERS: Emergency Provider Emergency Medicine; PCP Physician Assistant
DX: F25.0 Schizoaffective disorder, bipolar type (principal); Z79.899 Other long term (current) drug therapy; Z51.81 Encounter for therapeutic drug level monitoring
CPT/HCPCS: 36415; 80053; 80143; 80178; 80179; 80307; 81001; 81003; 85025; 96372; 99285; J2060; J3230; S9485

== ENCOUNTER 2024-07-24 00:20 | Emergency (ER) | payer OTHER, SELFPAY ==
[2024-07-24 00:24] VITALS: BP 178/83; PULSE 94; RESP 20; TEMP 36.7; O2SAT 97; BMI 36.2
--- OUTSIDE RECORDS SUMMARY | 2024-07-24 00:48 | XMS_ITS ---
Author Organization [facility] Address [address] [place] [address] Care Team Providers Care Courtesy Car Driver Name Role Phone Brian Collins Primary Care Provider Unavailab Sis Edmonds [phone] Encounters Encounter Location Date Provider Diagnosis [facility] [address] [place] [address] 02/22/2023 Sis Grijalva Plan Of Treatment No Information Progress Notes * Gino BLISSDOB:[birth year] (24 yo M)Acc No.[id number]:02/22/2023 Progress Notes Patient:?Gino BLISS Provider:Keli Grijalva DPM :2000???Age:23 Y???Sex:Male To e:02/22/2023 Address:[address] [place], [place] [id number] Pcp:Brian Collins Subjective: * Chief Complaints: * ??? * Medical History:? Objective: * Vitals:? Assessment: Plan: * Treatment: * Images: * The named appointment provid er may or may not be the originator of this progress note, and it is not deemed complete until electronically signed by the appointment provider. Sign off status: Pending * Provider:?Sis Grijalva DPM Date:?2022 Generated for Helenai manny/Seema/eTransmitting on:?07/24/2024 12:48 AM EST
--- OUTSIDE RECORDS SUMMARY | 2024-07-24 00:48 | XMS_ITS ---
Author Organization [facility] Address [address] [place] [address] Care Team Providers Care Group Fitness Instructor Name Role Phone Brian Collins Primary Care Provider Unavailab Sis Edmonds [phone] REASON FOR VISIT cx 04/12 Encounters Encounter Location Date Provider Diagnosis [facility] [address] [place] [address] 04/09/2023 Sis Grijalva Plan Of Treatment No Information Progress Notes * RUTHYGinoDOB:[birth year] (23 yo M)Acc No.[id number]:04/09/2023 Patient:?Gino Mcdaniels :2000???Age:23 Y???Sex:Male Address:[address] [place] [address], [address] * true * Date:? Generated for Printi manny/Marekg/eTransmitting on:?07/24/2024 12:48 AM EST
--- OUTSIDE RECORDS SUMMARY | 2024-07-24 00:48 | XMS_ITS ---
Author Organization [facility] Address [address] [place] [address] Care Team Providers Care Marketing [employer] Name Role Phone Brian Collins Primary Care Provider Unavailab Sis Edmonds [phone] Encounters Encounter Location Date Provider Diagnosis [facility] [address] [place] [address] 04/12/2023 Sis Grijalva Plan Of Treatment No Information Progress Notes * Gino BLISSDOB:[birth year] (24 yo M)Acc No.[id number]:04/12/2023 Progress Notes Patient:?Gino BLISS Provider:Keli Grijalva DPM :2000???Age:23 Y???Sex:Male To e:04/12/2023 Address:[address] [place], [place] [id number] Pcp:Brian Collins Subjective: * Chief Complaints: * ??? * Medical History:? Objective: * Vitals:? Assessment: Plan: * Treatment: * Images: * The named appointment provid er may or may not be the originator of this progress note, and it is not deemed complete until electronically signed by the appointment provider. Sign off status: Pending * Provider:?Sis Grijalva DPM Date:?2022 Generated for Helenai manny/Fadatg/eTransmitting on:?07/24/2024 12:48 AM EST
[2024-07-24] MEDS: LORazepam 1 MG TABLET 2 MG PO ×2 (00:53→10:49)
[2024-07-24 00:54] LABS: MANUAL DIFF FLAG NO
[2024-07-24 01:04] LABS: Basophils Absolute Auto 0.1 X10*3/uL (0.0-0.2); Basophils Percent Auto 0.7 % (0-2); Eosinophils Absolute Auto 0.2 X10*3/uL (0.0-0.4); Eosinophils Percent Auto 1.7 % (0-4); Hematocrit 42.6 % (42.0-52.0); Hemoglobin 14.2 g/dl (14.0-18.0); Imm Gran Abs Auto 0.04 X10*3/uL (0.00-0.03); Imm Gran Pct Auto 0.3 % (0.0-0.4); Lymphocytes Absolute Auto 2.9 X10*3/uL (1.2-4.9); Lymphocytes Percent Auto 23.8 % (20-40); Mean Corpuscular HGB Conc 33.3 g/dl (31.0-36.0); Mean Corpuscular Hemoglobin 28.1 pg (27.0-33.0); Mean Corpuscular Volume 84.4 fL (80.0-98.0); Mean Platelet Volume 11.7 fL (9.4-12.4); Monocytes Absolute Auto 1.1 X10*3/uL (0.1-1.2); Monocytes Percent Auto 8.8 % (2-11); Neutrophils Absolute Auto 7.9 x10*3/uL (2.0-8.3); Neutrophils Percent Auto 64.7 % (45-73); Platelet Count 231 X10*3/uL (160-400); Red Blood Count 5.05 X10*6/uL (4.60-5.80); Red Cell Distribution Width 13.5 % (11.0-16.0); White Blood Count 12.1 X10*3/uL (4.8-10.8)
[2024-07-24 01:09] LABS: COVID-19 Test Negative (Negative); IDNOW Serial# 55D5AD1C
[2024-07-24 01:19] LABS: Acetaminophen LAB < 3 mcg/mL (<30); Salicylate < 5.0 mg/dL (15-30)
[2024-07-24 01:21] LABS: Alanine Aminotransferase 47 U/L (0-40); Albumin Level 4.5 g/dL (3.5-5.0); Anion Gap 15 (12-20); Aspartate Amino Transferase 34 U/L (5-37); Bilirubin Total 0.2 mg/dL (0.0-1.0); Blood Urea Nitrogen 16 mg/dL (9-16); Calcium 9.5 mg/dL (8.4-10.2); Carbon Dioxide 17 mmol/L (22-29); Chloride 112 mmol/L (96-108); Creatinine Clr Calc Pharmacy 181.2; Estimated Glomerular Filt Rate > 60; Ethanol 15 mg/dL; Glucose Random 111 mg/dL (60-115); Potassium 3.7 mmol/L (3.3-5.1); Sodium 140 mmol/L (135-145)
--- NOTE | 2024-07-24 01:38 | PC.NURSE ---
Patient calm and cooperative at this time. Requesting to listen to music at this time. Just finished providing a urine sample.
--- NOTE | 2024-07-24 01:52 | ED_ITS ---
HPI - Psych General Chief Complaint: Psychiatric Symptoms Stated Complaint: crisis Time Seen by Provider: 07/24/24 00:30 Source: patient Mode of arrival: ambulatory Limitations: other ( delusional) History of Present Illness ED Provider: Dr. Ruth Loya HPI Narrative: Patient presents to the emergency room complaining of delusions. Patient states that the FBI has been following him in the white truck. Patient states that he has enjoys watching over him. Patient states that he does not feel safe when he sleeps. Patient states that he feels that his psychotic but not as much as usual. Patient states that he feels that his mind is racing. Patient here voluntarily. Patient denies SI or HI Related Data Home Medications ?Medication ?Instructions ?Recorded ?Confirmed lamotrigine 100 mg tablet 200 mg PO BEDTIME 06/13/24 07/24/24 lithium carbonate 300 mg tablet 600 mg PO DAILY 06/13/24 07/24/24 ascorbic acid (vitamin C) 1,000 mg 1,000 mg PO BID 07/02/24 07/24/24 tablet cariprazine 1.5 mg capsule 1.5 mg PO QPM 07/02/24 07/24/24 (Vraylar) olanzapine 10 mg tablet 10 mg PO BEDTIME 07/02/24 07/24/24 olanzapine 5 mg tablet 5 mg PO DAILY psychosis 07/02/24 07/24/24 omega 1-cge-zmo-fish oil 1,200 mg 2 cap PO DAILY 07/02/24 07/24/24 (144 mg-216 mg) capsule (Fish Oil) oxcarbazepine 300 mg tablet 300 mg BID 07/02/24 07/24/24 propranolol 10 mg tablet 10 mg PO BID PRN anxiety 07/02/24 07/24/24 quetiapine 25 mg tablet 25 mg PO BID PRN Agitation 07/02/24 07/24/24 trazodone 50 mg tablet 50 mg PO BEDTIME insomnia 07/02/24 07/24/24 cholecalciferol (vitamin D3) 50 50 mcg PO DAILY 07/04/24 07/24/24 mcg (2,000 unit) tablet Allergies Allergy/AdvReac Type Severity Reaction Status Date / Time fluoxetine AdvReac Severe giuliana Verified 07/24/24 00:27 haloperidol [From Haldol] AdvReac Intermediate Tremor Verified 07/24/24 00:27 chlorpromazine AdvReac Unknown Verified 07/24/24 00:27 [From Thorazine] Review of Systems 2 Review of Systems: Constitutional : No Weight loss, No Fever, No Chills, No Night Sweats, No Fatigue, No Malaise ENT/Mouth : No Hearing loss, No Ear Pain, No Nasal Congestion, No Sinus Pain, No Hoarseness, No sore throat, No Rhinorrhea, No Swallowing Difficulty Eyes: No Eye Pain, No Swelling, No Redness, No Foreign Body, No Discharge, No Vision Changes Cardiovascular : No Chest Pain, No SOB, No Dyspnea on Exertion, No Orthopnea, No Edema, No Palpitations Respiratory : No Cough, No Sputum, No Wheezing, No Smoke Exposure, No Dyspnea Gastrointestinal : No Nausea, No Vomiting, No Diarrhea, No Constipation, No abdominal Pain, No Hematochezia, No Melena Genitourinary : no irregular bleeding, No Dysuria, No Urinary Frequency, No Hematuria, No Urinary Incontinence, No Urgency, No Flank Pain, No Urinary Flow Changes, No Hesitancy Musculoskeletal : No joint pain, No Myalgias, No Joint Swelling Skin : No Skin Lesions, No rash Neuro : No Weakness, No Numbness, No Paresthesias, No Loss of Consciousness, No Dizziness, No Headache Psych : denies SI or HI, complaining of hearing voices, states that he feels manic, patient states that he feels that he is being followed by the NEW Heme/Lymph: No Bruising, No Bleeding,No Lymphadenopathy Endocrine : No Polyuria, No Polydipsia, No Temperature Intolerance PMFSH Past Medical History Medical History Acute respiratory failure Schizoaffective disorder, bipolar type Fibroepithelial polyp No known health problems Bipolar 1 disorder with moderate giuliana Depression Anxiety Surgical History S/P colonoscopy H/O endoscopy Family History Family History Mother Alcohol abuse Mental problem Father Alcohol abuse Mental problem Melanoma Social History Social History Household Members: Family Household Members Other:: mom and brother Housing: House Do you presently have visiting nurse or other home services: No Unable to assess alcohol history related to: Unknown Alcohol intake: current Alcohol intake frequency: a few times a month Alcohol type: hard liquor Comment: none Patient Tobacco Use Status: Never used Tobacco Smoked in Last 30 Days: Yes e-Cigarette/Vaping Use: Never Used Second Hand Smoke Exposure: No Use of substances other than those prescribed or required for medical reasons: No Substance Use Type: Marijuana Advance Directives: No Advance Directives Information Provided: No Do you have a plan to hurt others: No Plan service: No Current occupational status: unemployed and disabled Current occupation: Student - Online Sexual orientation: Straight/Heterosexual Cognitive needs: No Hearing needs: No Vision needs: No Physical Exam 2 Vital Signs: Vital Signs: Last Vital Signs Temp 98.1 F 07/24/24 00:24 Pulse 94 07/24/24 00:24 Resp 20 07/24/24 00:24 BP 178/83 H 07/24/24 00:24 Pulse Ox 97 07/24/24 00:24 O2 Del Method Room Air 07/24/24 00:24 BMI result Body Mass Index 36.2 Const: Other: Appearance: Alert. Oriented X3. No acute distress. Eyes: Pupils equal, round and reactive to light. ENT: Pharynx normal. patient has a head phone/noise cancelling device on his head Neck: Normal inspection. Neck supple. No lymph nodes noted. No crepitus CVS: Normal heart rate and rhythm. Pulses normal. Normal S1 and S2 Respiratory: No respiratory distress. Breath sounds normal. No Wheezing. No rales Abdomen: Soft and nontender. No rigidity. No distention. Skin: Skin warm and dry. Normal skin color. Normal skin turgor. Extremities: No lower extremity edema. No Lacerations. No Rash Neuro: Oriented X 3. No motor deficit. No sensory deficit. Moving all extremities. No slurred speech. CN 2 through 12 grossly intact Psych: calm, cooperative, normal affect Course Course Course Narrative: - all of patient's labs pending - care team evaluated the patient, patient is on a Section 12 Medications Administered Discontinued Medications Generic Name Dose Route Start Last Admin Trade Name Freq PRN Reason Stop Dose Admin Lorazepam 2 mg 07/24/24 00:40 07/24/24 00:53 Lorazepam 1 Mg Tablet PO 07/24/24 00:41 2 mg ONCE ONE Administration Medical Decision Making Medical Decision Making MDM Narrative: patient needs inpatient level of care no significant abnormality in patient's hematology and chemistry. [place] level is subtherapeutic. COVID negative Differential Diagnosis Differential Diagnoses: The differential diagnosis associated with the presentation includes Admission/Observation Consideration of admission/observation: Escalation of care including admission/observation considered Lab Data [facility] Lab Attestation statement: I reviewed the patient's lab results. 07/24/24 00:46 07/24/24 00:46 Labs: Lab Results 07/24/24 Range/Units 00:46 WBC 12.1 H (4.8-10.8) X10*3/uL RBC 5.05 (4.60-5.80) X10*6/uL Hgb 14.2 (14.0-18.0) g/dl Hct 42.6 (42.0-52.0) % MCV 84.4 (80.0-98.0) fL MCH 28.1 (27.0-33.0) pg MCHC 33.3 (31.0-36.0) g/dl RDW 13.5 (11.0-16.0) % Plt Count 231 (160-400) X10*3/uL MPV 11.7 (9.4-12.4) fL Immature Gran % (Auto) 0.3 (0.0-0.4) % Neut % (Auto) 64.7 (45-73) % Lymph % (Auto) 23.8 (20-40) % [place] % (Auto) 8.8 (2-11) % Eos % (Auto) 1.7 (0-4) % Baso % (Auto) 0.7 (0-2) % Lymph # (Auto) 2.9 (1.2-4.9) X10*3/uL [place] # (Auto) 1.1 (0.1-1.2) X10*3/uL Eos # (Auto) 0.2 (0.0-0.4) X10*3/uL Baso # (Auto) 0.1 (0.0-0.2) X10*3/uL Abs Immat Gran (auto) 0.04 H (0.00-0.03) X10*3/uL Absolute Neuts (auto) 7.9 (2.0-8.3) x10*3/uL Absolute Nucleated RBC 0.000 (0.0-0.012) X10*3/uL Nucleated RBC % (auto) 0.0 (0.0-0.2) /100WBC Sodium 140 (135-145) mmol/L Potassium 3.7 (3.3-5.1) mmol/L Chloride 112 H (96-108) mmol/L Carbon Dioxide 17 L (22-29) mmol/L Anion Gap 15 (12-20) BUN 16 (9-16) mg/dL Creatinine 0.83 (0.5-1.4) mg/dL Estim Creat Clear Calc 181.2 Estimated GFR > 60 Random Glucose 111 (60-115) mg/dL Calcium 9.5 (8.4-10.2) mg/dL Total Bilirubin 0.2 (0.0-1.0) mg/dL AST 34 (5-37) U/L ALT 47 H (0-40) U/L Total Protein 8.0 (6.5-8.0) g/dL Albumin 4.5 (3.5-5.0) g/dL Salicylates < 5.0 L (15-30) mg/dL Acetaminophen < 3 (<30) mcg/mL Ethyl Alcohol 15 mg/dL COVID-19 (KELVIN) Negative (Negative) COVID-19 Clin Com See Note Discharge Plan Discharge Clinical Impression: Schizoaffective disorder, bipolar type Patient Disposition: Still a Patient Prescriptions: No Action quetiapine 25 mg tablet 25 mg PO BID PRN (Reason: Agitation) ascorbic acid (vitamin C) 1,000 mg tablet 1,000 mg PO BID trazodone 50 mg tablet 50 mg PO BEDTIME olanzapine 5 mg tablet 5 mg PO DAILY olanzapine 10 mg tablet 10 mg PO BEDTIME oxcarbazepine 300 mg tablet 300 mg BID propranolol 10 mg tablet 10 mg PO BID PRN (Reason: anxiety) omega 5-lkr-azl-fish oil [Fish Oil] 1,200 (144-216) mg capsule 2 cap PO DAILY Vraylar 1.5 mg capsule 1.5 mg PO QPM cholecalciferol (vitamin D3) 50 mcg (2,000 unit) tablet 50 mcg PO DAILY lithium carbonate 300 mg tablet 600 mg PO DAILY lamotrigine 100 mg tablet 200 mg PO BEDTIME Interventions: [place]-Suicide Risk Severity Scale Last Done: 07/24/24 01:31 Print Language: Occitan
[2024-07-24 01:58] VITALS: BP 151/71; PULSE 102; RESP 18; TEMP 37.1; O2SAT 98
[2024-07-24 01:59] LABS: Lithium 0.17 mmol/L (0.60-1.20)
[2024-07-24 02:04] LABS: Amphetamine Screen Urine Not Detected (Not Detect); Barbiturates, Urine Not Detected (Not Detect); Benzodiazepines Screen Urine Not Detected (Not Detect); Buprenorphine Scr Not Detected (Not Detect); Cannabinoid Screen Urine Not Detected (Not Detect); Cocaine Screen Urine Not Detected (Not Detect); Fentanyl, urine Not Detected (Not Detect); Methadone Screen, Urine Not Detected (Not Detect); Opiate Screen Urine Not Detected (Not Detect); Oxycodone Screen Urine Not Detected (Not Detect); Phencyclidine Screen Urine Not Detected (Not Detect)
[2024-07-24 02:07] VITALS: BP 151/71; PULSE 102
[2024-07-24] MEDS: Propranolol HCL 10 MG TABLET PO (02:07)
[2024-07-24] MEDS: QUEtiapine Fumarate 25 MG TABLET PO (02:18)
[2024-07-24] MEDS: diphenhydrAMINE HCL 25 MG CAPSULE 50 MG PO (02:18)
[2024-07-24] MEDS: traZODone HCL 50 MG TABLET PO (02:23)
--- NOTE | 2024-07-24 02:26 | PC.NURSE ---
Patient calm and cooperative. In room at this time relaxing
[2024-07-24 03:06] LABS: Alkaline Phosphatase 69 U/L (39-117)
[2024-07-24] MEDS: OXcarbazepine 300 MG TABLET PO (09:25)
[2024-07-24] MEDS: Cholecalciferol (Vitamin D3) 25 MCG TABLET 50 MCG PO (09:25)
[2024-07-24] MEDS: Lithium Carbonate 300 MG CAPSULE 600 MG PO (09:25)
[2024-07-24] MEDS: OLANZapine 5 MG TABLET PO (09:25)
[2024-07-24] MEDS: Ascorbic Acid 500 MG TABLET 1000 MG PO (09:36)
--- NOTE | 2024-07-24 10:43 | PC.NURSE ---
pt reports feeling agitated and anxious is requesting medications to relax him before we need to call security
[2024-07-24 10:46] VITALS: BP 149/89; PULSE 85; RESP 16; TEMP 36.6; O2SAT 98
[2024-07-24] MEDS: Acetaminophen 325 MG TABLET 650 MG PO (11:23)
[2024-07-24] MEDS: Ziprasidone 40 MG CAPSULE PO (11:25)
--- NOTE | 2024-07-24 13:22 | PC.NURSE ---
pt is currently sleeping, respirations even and unlabored
--- NOTE | 2024-07-24 13:44 | MHC.CARE ---
Pt was accepted to [facility] by Ed[facility] for today 07/24/24. The accepting provider is Dr. Medina and the address is [address] [place] [address]. ETA is SEEMA. No nurse to nurse is required by the accepting facility. Pod RN and CARE team have been notified of placement.
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
[2024-07-24 14:42] VITALS: BP 154/63; PULSE 70; RESP 18; TEMP 36.3; O2SAT 99
--- NOTE | 2024-07-24 15:32 | PC.NURSE ---
pt's mom called and the pt is giving permission for the mom to pick up truck driver the pt car and his medications
[2024-07-24] MEDS: LORazepam 1 MG TABLET PO (16:13)
[2024-07-24 16:18] VITALS: BP 154/63; PULSE 70; RESP 18; TEMP 36.3; O2SAT 99
== END 2024-07-24 16:19 ==
PROVIDERS: Emergency Provider Emergency Medicine; PCP Physician Assistant
DX: F25.0 Schizoaffective disorder, bipolar type (principal); F22 Delusional disorders; Z79.899 Other long term (current) drug therapy; F12.90 Cannabis use, unspecified, uncomplicated; Z11.52 Encounter for screening for COVID-19
CPT/HCPCS: 36415; 80053; 80143; 80178; 80179; 80307; 85025; 87635; 99285; S9485

== ENCOUNTER → 2024-07-24 00:43 | Outpatient (BNV) | payer OTHER, SELFPAY | PROVIDERS: Emergency Provider Emergency Medicine; PCP Physician Assistant; Visit Provider Social Worker | DX: F25.0 Schizoaffective disorder, bipolar type (principal) | CPT/HCPCS: 99285 ==

== ENCOUNTER 2024-08-13 04:12 | Emergency (ER) | payer OTHER, SELFPAY ==
[2024-08-13 04:23] VITALS: BP 164/73; PULSE 89; RESP 20; TEMP 36.7; O2SAT 98
[2024-08-13] MEDS: chlorproMAZINE HCl 25 MG TABLET 50 MG PO ×2 (04:42→18:42)
[2024-08-13] MEDS: Propranolol HCL 10 MG TABLET PO (04:42)
[2024-08-13 04:45] VITALS: BP 164/73; BP 178/98; PULSE 89; PULSE 93; RESP 20; TEMP 36.7; O2SAT 98; BMI 38.0
[2024-08-13 05:13] LABS: MANUAL DIFF FLAG NO
[2024-08-13 05:14] LABS: Basophils Absolute Auto 0.1 X10*3/uL (0.0-0.2); Basophils Percent Auto 0.6 % (0-2); Eosinophils Absolute Auto 0.1 X10*3/uL (0.0-0.4); Eosinophils Percent Auto 0.5 % (0-4); Hematocrit 42.3 % (42.0-52.0); Hemoglobin 14.8 g/dl (14.0-18.0); Imm Gran Abs Auto 0.04 X10*3/uL (0.00-0.03); Imm Gran Pct Auto 0.4 % (0.0-0.4); Lymphocytes Absolute Auto 2.9 X10*3/uL (1.2-4.9); Lymphocytes Percent Auto 26.4 % (20-40); Mean Corpuscular Hemoglobin 28.2 pg (27.0-33.0); Mean Corpuscular Volume 80.7 fL (80.0-98.0); Monocytes Absolute Auto 1.3 X10*3/uL (0.1-1.2); Monocytes Percent Auto 12.1 % (2-11); Neutrophils Absolute Auto 6.6 x10*3/uL (2.0-8.3); Platelet Count 243 X10*3/uL (160-400); Red Blood Count 5.24 X10*6/uL (4.60-5.80); Red Cell Distribution Width 13.5 % (11.0-16.0)
[2024-08-13 05:21] LABS: Lithium < 0.10 mmol/L (0.60-1.20)
[2024-08-13 05:28] LABS: Acetaminophen LAB < 3 mcg/mL (<30); Salicylate < 5.0 mg/dL (15-30)
[2024-08-13 05:30] LABS: Amphetamine Screen Urine Not Detected (Not Detect); Barbiturates, Urine Not Detected (Not Detect); Benzodiazepines Screen Urine Not Detected (Not Detect); Buprenorphine Scr Not Detected (Not Detect); Cannabinoid Screen Urine POSITIVE (Not Detect); Cocaine Screen Urine Not Detected (Not Detect); Fentanyl, urine Not Detected (Not Detect); Methadone Screen, Urine Not Detected (Not Detect); Opiate Screen Urine Not Detected (Not Detect); Oxycodone Screen Urine Not Detected (Not Detect); Phencyclidine Screen Urine Not Detected (Not Detect)
[2024-08-13 05:44] LABS: Alanine Aminotransferase 49 U/L (0-40); Albumin Level 4.5 g/dL (3.5-5.0); Alkaline Phosphatase 53 U/L (39-117); Anion Gap 15 (12-20); Aspartate Amino Transferase 45 U/L (5-37); Bilirubin Total 0.4 mg/dL (0.0-1.0); Blood Urea Nitrogen 11 mg/dL (9-16); Calcium 9.2 mg/dL (8.4-10.2); Carbon Dioxide 19 mmol/L (22-29); Chloride 110 mmol/L (96-108); Creatinine Clr Calc Pharmacy 205.5; Estimated Glomerular Filt Rate > 60; Ethanol < 10 mg/dL; Glucose Random 131 mg/dL (60-115); Potassium 3.8 mmol/L (3.3-5.1); Sodium 140 mmol/L (135-145)
--- NOTE | 2024-08-13 05:44 | PC.NURSE ---
Pt showering at this time.
[2024-08-13 06:34] LABS: Valproate 18.4 mcg/mL (50.0-100.0)
--- NOTE | 2024-08-13 06:39 | ED.PSYCH ---
HPI - Psych General Chief Complaint: Psychiatric Symptoms Stated Complaint: Schizophrenia episode Time Seen by Provider: 08/13/24 04:24 Source: patient Mode of arrival: ambulatory Limitations: no limitations History of Present Illness ED Provider: HPI Narrative: Patient's history of schizoaffective disorder comes here in paranoid state saying that [facility] is after him reports auditory and visual hallucination denies SI or HI patient has been here multiple times for same says that he not able to sleep for last 5 days will like to go as inpatient Related Data Home Medications ?Medication ?Instructions ?Recorded ?Confirmed lamotrigine 100 mg tablet 200 mg PO BEDTIME 06/13/24 08/13/24 lithium carbonate 300 mg tablet 600 mg PO DAILY 06/13/24 07/24/24 ascorbic acid (vitamin C) 1,000 mg 1,000 mg PO BID 07/02/24 08/13/24 tablet cariprazine 1.5 mg capsule 1.5 mg PO QPM 07/02/24 07/24/24 (Vraylar) olanzapine 10 mg tablet 10 mg PO BEDTIME 07/02/24 08/13/24 olanzapine 5 mg tablet 5 mg PO DAILY psychosis 07/02/24 08/13/24 omega 6-hjs-nmp-fish oil 1,200 mg 2 cap PO DAILY 07/02/24 08/13/24 (144 mg-216 mg) capsule (Fish Oil) oxcarbazepine 300 mg tablet 300 mg BID 07/02/24 08/13/24 propranolol 10 mg tablet 10 mg PO BID PRN anxiety 07/02/24 08/13/24 quetiapine 25 mg tablet 25 mg PO BID PRN Agitation 07/02/24 08/13/24 trazodone 50 mg tablet 50 mg PO BEDTIME insomnia 07/02/24 08/13/24 cholecalciferol (vitamin D3) 50 50 mcg PO DAILY 07/04/24 08/13/24 mcg (2,000 unit) tablet divalproex 500 mg tablet,delayed 500 mg PO BID depressive disorder 08/13/24 08/13/24 release Allergies Allergy/AdvReac Type Severity Reaction Status Date / Time fluoxetine AdvReac Severe giuliana Verified 08/13/24 04:48 haloperidol [From Haldol] AdvReac Intermediate Tremor Verified 08/13/24 04:32 Review of Systems Review of Systems: Yes all other systems are reviewed and are negative [facility] Past Medical History Medical History Acute respiratory failure Schizoaffective disorder, bipolar type Fibroepithelial polyp No known health problems Bipolar 1 disorder with moderate giuliana Depression Anxiety Surgical History S/P colonoscopy H/O endoscopy Family History Family History Mother Alcohol abuse Mental problem Father Alcohol abuse Mental problem Melanoma Social History Social History Household Members: Family Household Members Other:: mom and brother Housing: House Do you presently have visiting nurse or other home services: No Unable to assess alcohol history related to: Unknown Alcohol intake: current Alcohol intake frequency: a few times a month Alcohol type: hard liquor Comment: none Patient Tobacco Use Status: Never used Tobacco Smoked in Last 30 Days: Yes e-Cigarette/Vaping Use: Never Used Second Hand Smoke Exposure: No Use of substances other than those prescribed or required for medical reasons: No Substance Use Type: Marijuana Advance Directives: No Advance Directives Information Provided: Yes service: No Current occupational status: unemployed and disabled Current occupation: Student - Online Sexual orientation: Straight/Heterosexual Cognitive needs: No Hearing needs: No Vision needs: No Physical Exam Vital Signs: Vital Signs: Last Vital Signs Temp 98.0 F 08/13/24 04:45 Pulse 89 08/13/24 04:45 Resp 20 08/13/24 04:45 BP 164/73 H 08/13/24 04:45 Pulse Ox 98 08/13/24 04:45 O2 Del Method Room Air 08/13/24 04:45 BMI result Body Mass Index 38.0 Appearance: Alert. Oriented X3. No acute distress. Eyes: PERRLA, No Nystagmus ENT: Pharynx normal. Oral Mucosa moist Neck: Normal inspection. Neck supple. CVS: Normal heart rate and rhythm. Pulses normal. Respiratory: No respiratory distress. Equal air entry bilateral, no wheezing/rales/rhonchi Abdomen: Soft and nontender. Bowel sounds are present, no mass palpable, no CVA tenderness Skin: Skin warm and dry. Normal skin color. Normal skin turgor. Extremities: No lower extremity edema. No calf tenderness psych: Paranoid denies any SI or HI restless Neuro: Oriented X 3. No motor deficit. No sensory deficit.No cerebellar signs , cranial nerves II-XII intact Medications Administered Discontinued Medications Generic Name Dose Route Start Last Admin Trade Name Oriq PRN Reason Stop Dose Admin Chlorpromazine HCl 50 mg 08/13/24 04:24 08/13/24 04:42 Chlorpromazine Hcl 25 Mg Tablet PO 08/13/24 04:25 50 mg ONCE ONE Administration Propranolol HCl 10 mg 08/13/24 04:24 08/13/24 04:42 Propranolol Hcl 10 Mg Tablet PO 08/13/24 04:25 10 mg ONCE ONE Administration Protocol Medical Decision Making Medical Decision Making [facility] Narrative: Patient's history of schizoaffective disorder comes here in paranoid state missing his p.r.n. medication for sleep for last few days no SI or HI will get care team evaluation Lab Data [facility] Lab Attestation statement: I reviewed the patient's lab results. 08/13/24 05:06 08/13/24 05:06 Labs: Lab Results 08/13/24 Range/Units 05:06 WBC 11.0 H (4.8-10.8) X10*3/uL RBC 5.24 (4.60-5.80) X10*6/uL Hgb 14.8 (14.0-18.0) g/dl Hct 42.3 (42.0-52.0) % MCV 80.7 (80.0-98.0) fL MCH 28.2 (27.0-33.0) pg MCHC 35.0 (31.0-36.0) g/dl RDW 13.5 (11.0-16.0) % Plt Count 243 (160-400) X10*3/uL MPV 11.0 (9.4-12.4) fL Immature Gran % (Auto) 0.4 (0.0-0.4) % Neut % (Auto) 60.0 (45-73) % Lymph % (Auto) 26.4 (20-40) % [place] % (Auto) 12.1 H (2-11) % Eos % (Auto) 0.5 (0-4) % Baso % (Auto) 0.6 (0-2) % Lymph # (Auto) 2.9 (1.2-4.9) X10*3/uL [place] # (Auto) 1.3 H (0.1-1.2) X10*3/uL Eos # (Auto) 0.1 (0.0-0.4) X10*3/uL Baso # (Auto) 0.1 (0.0-0.2) X10*3/uL Abs Immat Gran (auto) 0.04 H (0.00-0.03) X10*3/uL Absolute Neuts (auto) 6.6 (2.0-8.3) x10*3/uL Absolute Nucleated RBC 0.000 (0.0-0.012) X10*3/uL Nucleated RBC % (auto) 0.0 (0.0-0.2) /100WBC Sodium 140 (135-145) mmol/L Potassium 3.8 (3.3-5.1) mmol/L Chloride 110 H (96-108) mmol/L Carbon Dioxide 19 L (22-29) mmol/L Anion Gap 15 (12-20) BUN 11 (9-16) mg/dL Creatinine 0.75 (0.5-1.4) mg/dL Estim Creat Clear Calc 205.5 Estimated GFR > 60 Random Glucose 131 H (60-115) mg/dL Calcium 9.2 (8.4-10.2) mg/dL Total Bilirubin 0.4 (0.0-1.0) mg/dL AST 45 H (5-37) U/L ALT 49 H (0-40) U/L Alkaline Phosphatase 53 (39-117) U/L Total Protein 8.0 (6.5-8.0) g/dL Albumin 4.5 (3.5-5.0) g/dL Salicylates < 5.0 L (15-30) mg/dL Urine Opiates Screen Not Detected (Not Detect) Ur Buprenorphine Scrn Not Detected (Not Detect) ng/mL Ur Oxycodone Screen Not Detected (Not Detect) ng/mL Urine Methadone Screen Not Detected (Not Detect) ng/mL Urine Fentanyl Screen Not Detected (Not Detect) Acetaminophen < 3 (<30) mcg/mL Ur Barbiturates Screen Not Detected (Not Detect) Valproic Acid 18.4 L (50.0-100.0) mcg/mL Ur Phencyclidine Scrn Not Detected (Not Detect) Ur Amphetamines Screen Not Detected (Not Detect) U Benzodiazepines Scrn Not Detected (Not Detect) [place] < 0.10 L (0.60-1.20) mmol/L Urine Cocaine Screen Not Detected (Not Detect) U Marijuana (THC) Screen POSITIVE H (Not Detect) Ethyl Alcohol < 10 mg/dL Discharge Plan Discharge Clinical Impression: Bipolar 1 disorder with moderate giuliana, Acute psychosis Patient Disposition: Still a Patient Prescriptions: No Action quetiapine 25 mg tablet 25 mg PO BID PRN (Reason: Agitation) ascorbic acid (vitamin C) 1,000 mg tablet 1,000 mg PO BID trazodone 50 mg tablet 50 mg PO BEDTIME olanzapine 5 mg tablet 5 mg PO DAILY olanzapine 10 mg tablet 10 mg PO BEDTIME oxcarbazepine 300 mg tablet 300 mg BID propranolol 10 mg tablet 10 mg PO BID PRN (Reason: anxiety) omega 6-lbt-ofu-fish oil [Fish Oil] 1,200 (144-216) mg capsule 2 cap PO DAILY Vraylar 1.5 mg capsule 1.5 mg PO QPM cholecalciferol (vitamin D3) 50 mcg (2,000 unit) tablet 50 mcg PO DAILY lithium carbonate 300 mg tablet 600 mg PO DAILY lamotrigine 100 mg tablet 200 mg PO BEDTIME divalproex 500 mg tablet,delayed release (DR/EC) 500 mg PO BID Interventions: [place]-Suicide Risk Severity Scale Last Done: 08/13/24 04:52 Print Language: Bengali
--- NOTE | 2024-08-13 07:14 | PC.NURSE ---
Assumed care of patient at 0645, patient appears to be sleeping, respirations are even and unlabored, no apparent distress is noted at this time. Patient is pending CARE team evaluation at this time
[2024-08-13] MEDS: Nicotine Polacrilex 2 MG GUM BUCCAL (18:03)
[2024-08-13 18:08] VITALS: BP 143/71; PULSE 77; RESP 18; TEMP 36.2; O2SAT 98
--- NOTE | 2024-08-13 18:15 | PC.NURSE ---
Patient reporting anxiety regarding transport to [facility], requesting Thorazine for anxiety. MD Magan culver
[2024-08-13] MEDS: chlorproMAZINE HCl 25 MG/ML AMPUL 100 MG IM (19:25)
--- NOTE | 2024-08-13 19:48 | PC.NURSE ---
Patient began escalating due to another patient becoming escalated. Patient threatening staff, patient then proceeded to break through jabier port door by security. MD Magan at bedside verbal order for 100mg Thorazine. Patient willingly took IM injection of Thorazine standing in 8. Patient states I'm sorry I just don't get why the fuck the ambulance to take me to [place] is so fucking late . This RN validated patient's feelings, patient remains slightly agitated at this time
[2024-08-13] MEDS: Midazolam HCl 5 MG/ML VIAL 10 MG IM (20:20)
[2024-08-13] MEDS: chlorproMAZINE HCl 25 MG/ML AMPUL 200 MG IM (20:20)
[2024-08-13 21:05] VITALS: BP 119/48; PULSE 92; RESP 14; TEMP 36.5; O2SAT 96
--- NOTE | 2024-08-13 22:11 | PC.NURSE ---
Late entry at 2019 Patient was told they had to wait till tomorrow to be transferred to [place] kicked through the safety door and proceeded to threaten this nurse by calling this nurse a bitch and a slut . Charge nurse, security and md responded to security alert patient received im thorazine and versed for increased agitation by charge nurse. Patient vitals are within normal limits, is sleeping at this time resp even and unlabored.
[2024-08-14] MEDS: Acetaminophen 325 MG TABLET 650 MG PO (00:46)
[2024-08-14 06:07] VITALS: RESP 16
--- NOTE | 2024-08-14 06:10 | PC.NURSE ---
Patient slept through the night, no distress observed/reported, patient pre-accepted to [facility], per report ETA is 1200 on 08/14/24, no transfer paper done yet, care team made aware, no behavior and safety concerns, will continue to monitor
[2024-08-14 06:48] VITALS: BP 131/77; PULSE 92; RESP 16; TEMP 36.4; O2SAT 97
[2024-08-14] MEDS: Ibuprofen 400 MG TABLET PO (06:48)
--- NOTE | 2024-08-14 06:49 | MHC.CARE ---
Pt has been accepted to [facility]: [address], [place] [address] Phone:? Noon arrival Accepting Doc - Dr. Demarcus Decker
--- NOTE | 2024-08-14 07:11 | MHC.CARE ---
[facility] form faxed
[2024-08-14 09:09] VITALS: BP 137/54; PULSE 122; RESP 18; TEMP 36.6; O2SAT 98
--- NOTE | 2024-08-14 09:15 | PC.NURSE ---
ems report given to ems. patient calm and cooperative with ems.
== END 2024-08-14 09:16 ==
PROVIDERS: Emergency Provider Internal Medicine
DX: F06.33 Mood disorder due to known physiological condition with manic features (principal); F29 Unspecified psychosis not due to a substance or known physiological condition; Z79.899 Other long term (current) drug therapy
CPT/HCPCS: 36415; 80053; 80143; 80164; 80178; 80179; 80307; 85025; 96372; 99285; J2250; J3230; S9485

== ENCOUNTER 2024-09-15 16:23 | Outpatient (AMB) | payer OTHER, SELFPAY ==
--- OUTSIDE RECORDS SUMMARY | 2024-09-15 16:26 | XMS_ITS ---
Author Organization [facility] Address [address] [place] [address] Care Team Providers Care Siene Maker Name Role Phone Brian Collins Primary Care Provider Unavailab Sis Edmonds [phone] Encounters Encounter Location Date Provider Diagnosis [address] [address] 04/12/2023 Sis Grijalva Plan Of Treatment No Information Progress Notes * Gino BLISSDOB:[birth year] (24 yo M)Acc No.[id number]:04/12/2023 Progress Notes Patient:?Gino BLISS Provider:Keli Grijalva DPM :2000???Age:23 Y???Sex:Male To e:04/12/2023 Address:[address] [place], [place] [id number] Pcp:Brian Collins Subjective: * Chief Complaints: * ??? * Medical History:? Objective: * Vitals:? Assessment: Plan: * Treatment: * Images: * The named appointment provid er may or may not be the originator of this progress note, and it is not deemed complete until electronically signed by the appointment provider. Sign off status: Pending * Provider:?Sis Grijalva DPM Date:?2022 Generated for Printi ng/Faxing/eTransmitting on:?09/15/2024 04:26 PM EDT
--- OUTSIDE RECORDS SUMMARY | 2024-09-15 16:26 | XMS_ITS ---
Author Organization [facility] Address [address] [place] [address] Care Team Providers Care Construction Job Cost Estimator Name Role Phone Brian Collins Primary Care Provider Unavailab Sis Edmonds [phone] REASON FOR VISIT cx 04/12 Encounters Encounter Location Date Provider Diagnosis [facility] [address] [place] [address] 04/09/2023 Sis Grijalva Plan Of Treatment No Information Progress Notes * RUTHYGinoDOB:[birth year] (23 yo M)Acc No.[id number]:04/09/2023 Patient:?Gino Mcdaniels :2000???Age:23 Y???Sex:Male Address:[address] [place] [address], [address] * true * Date:? Generated for Printi ng/Fadatg/eTransmitting on:?09/15/2024 04:26 PM EDT
--- OUTSIDE RECORDS SUMMARY | 2024-09-15 16:26 | XMS_ITS | Patient Health Record ---
Author Organization [facility] [place] Address [address] [place] [address] Care Team Providers Care Equity Research Associate Name Role Phone Brian Collins Primary Care Provider Unavail Sis Edmonds Unavailable [phone] Allergies No Known Allergies Reason For Referral No Information Medications Medication SIG (Take, Route, Frequency, Duration) Notes Start Date End Date Status lamoTRIgine 200 MG 1 tablet Orally Once a day Active OXcarbazepine 300 MG 1 tablet Orally Twi ce a day Active [place] Carbonate 600 MG 1 capsule Orall y Once a day 900 mg PM Active Night Splint AFO - L1930 1 wear at rest for 30 days Active Social History Tobacco Use: Social History Observation Description Date Details (start date - stop date) Former Smoker NA - NA Tobacco Use/Smoking Question Answer Notes Are you a: former smoker Additional Findings: Tobacco Non-User Current no n-smoker Alcohol Screen Question Answer Notes Did you have a drink containing alcohol in the p ast year? Yes Points 0 Interpretation Negative Tobacco use other than smoking: Question Answer Notes Are you an other tobacco user? No Plan Of Treatment No Information Insurance Providers Payer Name Payer Address Payer Phone Subscriber Number Group Number Insured Name Patient Relationship to Insured Coverage Start Date Coverage End Date [facility] [employer] Claims [address] [place] [id number] Gino Mcdaniels Self - patient is the insured Medical (General) History Medical History History ICD Code Back,Hip,and Knee pain Broken bones Bipolar disorder
[2024-09-15 16:29] VITALS: BP 110/72; PULSE 104; O2SAT 97; BMI 36.3
--- NOTE | 2024-09-15 16:29 | MHC.PC.OV ---
Vital Signs 09/15/24 16:29 Height 6 ft Weight 268 lb BMI 36.3 BP 110/72 Blood Pressure Location Lt brachial Position Sitting Pulse 104 H Pulse Source Pulse Oximeter Pulse Oximetry (%) 97 Oxygen Delivery Method Room Air Intake Visit Reasons: [facility] 09/04 Transportation Specialist Required: No Accompanied by: Self / Same As Patient Allergies fluoxetine Adverse Reaction (Severe, Verified 09/15/24 16:30) giuliana haloperidol [From Haldol] Adverse Reaction (Intermediate, Verified 09/15/24 16:30) Tremor Tobacco use date assessed: 09/15/24 Dental Screening Dental Screen Date: 09/15/24 Did you have a dental visit in the last 12 months?: Yes Did you have a dental problem in the last 6 months where you did not have access to dental care?: No Was dental information given to patient?: Patient has dentist HPI HPI Comments History of Present Illness Details 24 y/o Male patient who presents to the clinic for HDF. He was admitted at [facility] 08/14 - 09/04 due to Schizo-effective disorder with Paranoid delusions and HI/SI. He has a Psychiatrist at [facility] (Dr. Shamir Daily) and appointment scheduled for 09/21/24. Today denies SI/SA/HI. [facility] Medical History Acute respiratory failure Schizoaffective disorder, bipolar type Fibroepithelial polyp No known health problems Bipolar 1 disorder with moderate giuliana Depression Anxiety Surgical History S/P colonoscopy H/O endoscopy Family History Mother Alcohol abuse Mental problem Father Alcohol abuse Mental problem Melanoma Social History Household Members: Family Household Members Other:: mom and brother Housing: House Do you presently have visiting nurse or other home services: No Unable to assess alcohol history related to: Unknown Alcohol intake: current Alcohol intake frequency: a few times a month Alcohol type: hard liquor Comment: none Patient Tobacco Use Status: Never used Tobacco e-Cigarette/Vaping Use: Never Used Second Hand Smoke Exposure: No Substance Use Type: Marijuana service: No Current occupational status: unemployed and disabled 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 1. Little interest or pleasure in doing things: not at all 2. Feeling down, depressed, or hopeless: not at all 3. Trouble falling or staying asleep, or sleeping too much: not at all 4. Feeling tired or having little energy: not at all 5. Poor appetite or overeating: not at all 6. Feeling bad about yourself - or that you are a failure or have let yourself or your family down: not at all 7. Trouble concentrating on things, such as reading the newspaper or watching television: not at all 8. Moving or speaking so slowly that other people could have noticed. Or the opposite - being so fidgety or restless that you have been moving around a lot more than usual: not at all 9. Thoughts that you would be better off or of hurting yourself in some way: not at all Total score: 0 Source: Developed by Drs. Gino Shelton, Shari Duong, Héctor Alves and colleagues, with an educational allison from [employer]. Thrive Questionnaire Date Thrive assessed: 09/15/24 I am a: Patient What is your living situation today?: I have a steady place to live Within the past 12 months, did the food you bought not last and you didn't have the money to get more?: Often true Within the past 12 months, did you worry whether your food would run out before you got money to buy more?: Often true Do you have trouble paying for medicines?: Yes Do you have trouble getting transportation to medical appointments?: No Do you have trouble paying your heating and electricity bill?: No Do you have trouble taking care of your child, family member or friend?: I choose not to answer this question Do you have trouble with day-to-day activities such as bathing, preparing meals, shopping, managing finances, etc.?: I choose not to answer this question Are you currently unemployed and looking for a job?: I choose not to answer this question Are you interested in more education?: I choose not to answer this question Please select the resources that you would like help with: None Currently or been in a relationship where the following occur: I choose not to answer THRIVE Score: 2 AUDIT C Alcohol Use Questionnaire (AUDIT-C) 1. How often do you have a drink containing alcohol?: Never 3. How often do you have six or more drinks on one occasion?: Never Total Score: 0 OVIDIO-7 AMB Questionnaire OVIDIO-7 Date OVIDIO - 7 assessed: 09/15/24 Feeling nervous, anxious, or on edge: 0 = Not at all Not being able to stop or control worryin = Not at all Worrying too much about different things: 0 = Not at all Trouble relaxin = Not at all Being so restless that it is hard to sit still: 0 = Not at all Becoming easily annoyed or irritable: 0 = Not at all Feeling afraid as if something awful might happen: 0 = Not at all Total OVIDIO-7 score (0-4 normal; 5-9 mild; 10-14 moderate; 15-21 severe): 0 Source: Developed by Drs. Gino Shelton, Shari Duong, Héctor Alves and colleagues, with an educational allison from [employer]. Review of Systems Const All systems reviewed & are unremarkable except as noted in HPI and below Physical exam (Primary Care) Vital Signs: Last Vital Signs Pulse 104 H 09/15/24 16:29 BP 110/72 09/15/24 16:29 Pulse Ox 97 09/15/24 16:29 Oxygen Delivery Method Room Air 09/15/24 16:29 BMI result Body Mass Index 36.3 Tobacco/Smoking Status: Tobacco use Status Tobacco use date assessed 09/15/24 09/15/24 16:37 Patient Tobacco Use Status Never used Tobacco 09/15/24 16:37 e-Cigarette/Vaping Use Never Used 09/15/24 16:37 PHQ-9: PHQ-9 Score PHQ-9: Total score 0 09/15/24 16:37 Thrive Assessment: Date of Thrive Assessment Date Thrive assessed 09/15/24 09/15/24 16:37 Currently or been in a relationship where the following occur: I choose not to answer Const General: cooperative, comfortable and no acute distress Nutritional Appearance: overweight Orientation/consciousness: patient oriented x3 Neuro General: patient oriented x3, gait normal and moves all extremities Psych Appearance: grossly normal Speech and movement: Normal speech and movement present Attitude: cooperative Thought content: suicidality, no homicidality and no delusions Insight: Good insight present (Psych) Coding Level of Care Code Est Pt Level 4 (87680) Diagnoses Schizoaffective disorder, bipolar type F25.0 Time Spent (min) 20 Assessment & Plan Assessment & Plan (1) Schizoaffective disorder, bipolar type: Code(s): F25.0 - Schizoaffective disorder, bipolar type Category: Medical Plan: Managed by Psych @ [facility] (Dr. Shamir Daily). Has an appointment 09/21/24.
== END 2024-09-15 17:26 | disposition home or self-care (01) ==
LOC: HO.HMCH 16:24
PROVIDERS: PCP Physician Assistant; Visit Provider Nurse Practitioner Family
DX: F25.0 Schizoaffective disorder, bipolar type (principal)

== ENCOUNTER → 2024-09-15 16:23 | Outpatient (BNVA) | payer OTHER, SELFPAY | PROVIDERS: PCP Physician Assistant; Visit Provider Nurse Practitioner Family | DX: F25.0 Schizoaffective disorder, bipolar type (principal) | CPT/HCPCS: 96127; 99212 ==

== ENCOUNTER 2024-11-09 14:25 | Outpatient (REF) | payer OTHER, SELFPAY ==
--- NOTE | ~2024-11-09 | XR_ITS ---
EXAMINATION: XR SHOULDER, RIGHT CLINICAL INFORMATION: M77.8 - Other enthesopathies, not elsewhere classified COMPARISON: None available. TECHNIQUE: AP external rotation, Grashey, scapular Y, and axillary views of the right shoulder. FINDINGS: Normal bone mineralization. No fracture, dislocation, or suspicious bone lesion. Normal alignment. The glenohumeral joint is normal. The AC joint is normal. There is a type II acromion. No undersurface spurring. The subacromial space is preserved. Remainder of the soft tissue and bony structures appear normal. XR/XR shoulder RT min 2V IMPRESSION: Normal right shoulder. Electronically signed by: Bishop Kerr MD 11/09/2024 03:22 PM EDT
== END 2024-11-09 14:26 | disposition home or self-care (01) ==
LOC: HO.XRAY 14:25
PROVIDERS: PCP Physician Assistant; Visit Provider Physician Assistant
DX: M75.21 Bicipital tendinitis, right shoulder (principal); M77.8 Other enthesopathies, not elsewhere classified
CPT/HCPCS: 73030; 99212

== ENCOUNTER 2024-11-09 14:25 | Outpatient (AMB) | payer OTHER, SELFPAY ==
--- NOTE | 2024-11-09 14:27 | MHC.PC.OV ---
Vital Signs 11/09/24 14:34 Height 6 ft Weight 270 lb 2 oz BMI 36.6 BP 130/72 Blood Pressure Location Lt brachial Position Sitting Pulse 91 Pulse Source Pulse Oximeter Temp 97.5 F Temp Source Temporal Artery Scan Pulse Oximetry (%) 98 Oxygen Delivery Method Room Air Intake Visit Reasons: R shoulder discomfort /pain Side Seam Tender Required: No Accompanied by: Self / Same As Patient Allergies fluoxetine Adverse Reaction (Severe, Verified 11/09/24 14:37) giuliana haloperidol (From Haldol) Adverse Reaction (Intermediate, Verified 11/09/24 14:37) Tremor Medication List - Last Reconciled 11/09/24 by Brian Collins PA-C ascorbic acid (vitamin C) 1,000 mg PO BID cholecalciferol (vitamin D3) 50 mcg PO DAILY divalproex 500 mg PO BID lamotrigine 200 mg PO BEDTIME olanzapine 5 mg PO DAILY olanzapine 10 mg PO BEDTIME omega [id number]-fish oil 1,200 (144-216) mg (Fish Oil) 2 caps PO DAILY oxcarbazepine 300 mg BID propranolol 10 mg PO BID PRN quetiapine 25 mg PO BID PRN trazodone 50 mg PO BEDTIME Tobacco use date assessed: 09/15/24 Dental Screening Dental Screen Date: 09/15/24 HPI R shoulder discomfort /pain HPI Details The patient is a 24-year-old male presenting with right shoulder pain. Approximately one month ago, the patient experienced an injury while getting off the floor, leading to persistent pain in the right shoulder. The pain is particularly severe when the arm is raised overhead or rotated internally, but is absent when the arm is at rest. The patient has not used any [id number]-[id number]-[id number] medications for pain relief and reports that the pain does not interfere with lifting objects unless the arm is positioned overhead. There is no history of hearing a snap or pop at the time of injury. [facility] Medical History Acute respiratory failure Schizoaffective disorder, bipolar type Fibroepithelial polyp No known health problems Bipolar 1 disorder with moderate giuliana Depression Anxiety Surgical History S/P colonoscopy H/O endoscopy Family History Mother Alcohol abuse Mental problem Father Alcohol abuse Mental problem Melanoma Social History Household Members: Family Household Members Other:: mom and brother Housing: House Do you presently have visiting nurse or other home services: No Unable to assess alcohol history related to: Unknown Alcohol intake: current Alcohol intake frequency: a few times a month Alcohol type: hard liquor Comment: none Patient Tobacco Use Status: Never used Tobacco e-Cigarette/Vaping Use: Never Used Second Hand Smoke Exposure: No Substance Use Type: Marijuana service: No Current occupational status: unemployed and disabled Current occupation: Student - Online Sexual orientation: Straight/Heterosexual Cognitive needs: No Hearing needs: No Vision needs: No Questionnaire Thrive Questionnaire Date Thrive assessed: 09/15/24 I am a: Patient What is your living situation today?: I have a steady place to live Within the past 12 months, did the food you bought not last and you didn't have the money to get more?: Often true Within the past 12 months, did you worry whether your food would run out before you got money to buy more?: Often true Do you have trouble paying for medicines?: Yes Do you have trouble getting transportation to medical appointments?: No Do you have trouble paying your heating and electricity bill?: No Do you have trouble taking care of your child, family member or friend?: I choose not to answer this question Do you have trouble with day-to-day activities such as bathing, preparing meals, shopping, managing finances, etc.?: I choose not to answer this question Are you currently unemployed and looking for a job?: I choose not to answer this question Are you interested in more education?: I choose not to answer this question Please select the resources that you would like help with: None Currently or been in a relationship where the following occur: I choose not to answer THRIVE Score: 2 OVIDIO-7 AMB Questionnaire OVIDIO-7 Date OVIDIO - 7 assessed: 09/15/24 Source: Developed by Drs. Gino Shelton, Shari Duong, Héctor Alves and colleagues, with an educational allison from [facility]. Review of Systems Const Denies headache(s) Eyes Denies loss of vision ENT Denies vertigo, Denies dizziness, Denies headache(s) and Denies sore throat Card Denies chest pain, Denies leg edema and Denies lightheadedness Resp Denies cough, Denies hemoptysis and Denies wheezing GI Denies abdominal pain, Denies melena, Denies constipation, Denies diarrhea and Denies vomiting Denies dysuria, Denies urinary frequency and Denies urinary urgency Musc Denies arthralgias, Denies joint swelling, Denies numbness and Denies tingling Neuro Denies Abnormal speech present, Denies behavioral changes, Denies vertigo, Denies dizziness, Denies headache(s), Denies loss of vision, Denies memory loss, Denies numbness and Denies tingling Psych Denies anxiety, Denies behavioral changes, Denies depression, Denies memory loss and Denies panic attacks Cezar/Lymph Denies easy bleeding and Denies easy bruising Aller/Immun Denies wheezing Physical exam (Primary Care) Vital Signs: Last Vital Signs Temp 97.5 F 11/09/24 14:34 Pulse 91 11/09/24 14:34 BP 130/72 11/09/24 14:34 Pulse Ox 98 11/09/24 14:34 Oxygen Delivery Method Room Air 11/09/24 14:34 BMI result Body Mass Index 36.6 Tobacco/Smoking Status: Tobacco use Status Tobacco use date assessed 09/15/24 11/09/24 14:28 Patient Tobacco Use Status Never used Tobacco 11/09/24 14:28 e-Cigarette/Vaping Use Never Used 11/09/24 14:28 Thrive Assessment: Date of Thrive Assessment Date Thrive assessed 09/15/24 11/09/24 14:28 Currently or been in a relationship where the following occur: I choose not to answer Const General: healthy appearing, no acute distress, alert and awake Nutritional Appearance: well nourished Orientation/consciousness: oriented to person, oriented to place and oriented to time HENMT Ears: TM's normal bilaterally General nose exam: Normal nasal mucous membranes and turbinates present Eyes Conjunctivae: conjunctivae normal Sclerae: sclerae normal Pupils: Equal, round and reactive pupils present Neck Neck: Yes no lymphadenopathy and Yes no JVD Thyroid: Thyroid normal Carotids: no bruits Resp Effort & Inspection: normal respiratory effort and not tachypneic Auscultation: no crackles, no rales, no rhonchi and no wheezes Cardio Rate: regular rate Rhythm: regular rhythm Heart sounds: no murmurs and normal S1 and S2 GI Palpation (GI): Soft to palpation, nontender, no hepatomegaly and no splenomegaly Auscultation: normal bowel sounds Skin General skin exam: no rashes or lesions noted and dry skin Neuro General: oriented to person, oriented to place and oriented to time Cranial nerves: Yes Equal, round and reactive pupils present Speech: No Abnormal speech present Gait exam (Neuro): Normal gait present Motor exam (neuro): no tremor noted Extrem Other: RIGHT SHOULDER: FULL RANGE OF MOTION OF THE RIGHT SHOULDER, NEGATIVE CHOW, NEGATIVE EMPTY CAN TEST, DOES REPORT PAIN OVER THE DELTOID MUSCULAR REGION WITH ABDUCTION ACTIVITIES Right upper extremity: full ROM Left upper extremity: full ROM Right lower extremity: full ROM; no edema Left lower extremity: full ROM; no edema Psych Mental Status: mental status grossly normal Speech and movement: Normal speech and movement present Affect: normal affect Attitude: cooperative Thought process: Normal thought process present Coding Level of Care Code Est Pt Level 3 (41264) Diagnoses Right shoulder tendinitis M77.8 Assessment & Plan Assessment & Plan (1) Right shoulder tendinitis: Code(s): M77.8 - Other enthesopathies, not elsewhere classified Category: Medical Plan: The plan includes obtaining an x-ray of the right shoulder to assess structural integrity and initiating physical therapy to improve range of motion and alleviate pain. If physical therapy does not result in improvement, an MRI may be considered to evaluate for potential rotator cuff tear or other soft tissue injuries. The patient is advised to use anti-inflammatory medications to manage inflammation and pain. Orders: Orders Comprehensive [place]. Panel Fast Today Z13.1 - Encounter for screening for diabetes mellitus Complete Blood Count no Diff Today Z13.1 - Encounter for screening for diabetes mellitus PT Evaluation and Treatment Today M77.8 - Other enthesopathies, not elsewhere classified XR shoulder RT min 2V Today M77.8 - Other enthesopathies, not elsewhere classified Medications: New meloxicam 15 mg PO DAILY 14 tabs 0RF 14 days M77.8 - Other enthesopathies, not elsewhere classified
[2024-11-09 14:34] VITALS: BP 130/72; PULSE 91; TEMP 36.4; O2SAT 98; BMI 36.6
--- OUTSIDE RECORDS SUMMARY | 2024-11-09 15:41 | XMS_ITS | Patient Health Record ---
[facility] Organization [facility] [place] Address [address] [place] [address] Care Team Providers Care Roulette Dealer Name Role Phone Brian Collins Primary Care Provider Unavail Sis Edmonds Unavailable [phone] Allergies No Known Allergies Reason For Referral No Information Medications Medication SIG (Take, Route, Frequency, Duration) Notes Start Date End Date Status lamoTRIgine 200 MG 1 tablet Orally Once a day Active OXcarbazepine 300 MG 1 tablet Orally Twi ce a day Active [place] Carbonate 600 MG 1 capsule Orall y [...] Insured Coverage Start Date Coverage End Date [facility] [employer] Claims [address] [place] [id number] Gino Mcdaniels Self - patient is the insured Medical (General) History Medical History History ICD Code Back,Hip,and Knee pain Broken bones Bipolar disorder
== END 2024-11-09 14:47 | disposition home or self-care (01) ==
LOC: HO.HMCH 14:25
PROVIDERS: PCP Physician Assistant; Visit Provider Physician Assistant
DX: M77.8 Other enthesopathies, not elsewhere classified (principal)

== ENCOUNTER → 2024-11-09 14:56 | Outpatient (BNV) | payer OTHER, SELFPAY | PROVIDERS: PCP Physician Assistant; Visit Provider Radiology Diagnostic Radiology | DX: M25.511 Pain in right shoulder (principal) | CPT/HCPCS: 73030 ==

== ENCOUNTER 2024-12-21 15:00 | Outpatient (RCR) | payer OTHER, SELFPAY | END 2025-01-30 09:49 | disposition home or self-care (01) | LOC: HO.PT 15:00 | PROVIDERS: PCP Physician Assistant; Visit Provider Physician Assistant | DX: M79.601 Pain in right arm (principal); M77.8 Other enthesopathies, not elsewhere classified | CPT/HCPCS: 97110; 97161; 97530; 97535 ==

== ENCOUNTER 2025-02-12 12:50 | Outpatient (REF) | payer OTHER, SELFPAY ==
[2025-02-12 13:28] LABS: Hematocrit 43.5 % (42.0-52.0); Hemoglobin 14.7 g/dl (14.0-18.0); Mean Corpuscular HGB Conc 33.8 g/dl (31.0-36.0); Mean Corpuscular Hemoglobin 28.4 pg (27.0-33.0); Mean Corpuscular Volume 84.1 fL (80.0-98.0); NRBC Abs Auto 0.000 X10*3/uL (0.0-0.012); NRBC Pct Auto 0.0 /100WBC (0.0-0.2); Platelet Count 220 X10*3/uL (160-400); Red Blood Count 5.17 X10*6/uL (4.60-5.80); White Blood Count 6.6 X10*3/uL (4.8-10.8)
[2025-02-12 14:15] LABS: Alanine Aminotransferase 57 U/L (0-40); Albumin Level 4.7 g/dL (3.5-5.0); Alkaline Phosphatase 54 U/L (39-117); Anion Gap 12 (12-20); Aspartate Amino Transferase 38 U/L (5-37); Blood Urea Nitrogen 11 mg/dL (9-16); Calcium 9.5 mg/dL (8.4-10.2); Carbon Dioxide 24 mmol/L (22-29); Chloride 106 mmol/L (96-108); Estimated Glomerular Filt Rate > 60; Potassium 4.0 mmol/L (3.3-5.1); Sodium 138 mmol/L (135-145); Total Protein 7.5 g/dL (6.5-8.0)
== END 2025-02-12 12:51 | disposition home or self-care (01) ==
LOC: HO.LAB 12:50
PROVIDERS: PCP Physician Assistant; Visit Provider Physician Assistant
DX: Z13.1 Encounter for screening for diabetes mellitus (principal)
CPT/HCPCS: 36415; 80053; 85027

== ENCOUNTER 2025-02-15 13:56 | Outpatient (AMB) | payer OTHER, SELFPAY ==
[2025-02-15 13:58] VITALS: BP 158/98; PULSE 81; TEMP 36.3; O2SAT 98; BMI 39.5
--- NOTE | 2025-02-15 13:58 | MHC.PC.OV ---
Vital Signs 02/15/25 13:58 Height 6 ft Weight 291 lb 4 oz BMI 39.5 BP 158/98 H Blood Pressure Location Lt brachial Position Sitting Pulse 81 Pulse Source Pulse Oximeter Temp 97.3 F Temp Source Temporal Artery Scan Pulse Oximetry (%) 98 Oxygen Delivery Method Room Air Intake Visit Reasons: pe Allergies fluoxetine Adverse Reaction (Severe, Verified 02/15/25 14:19) giuliana haloperidol (From Haldol) Adverse Reaction (Intermediate, Verified 02/15/25 14:19) Tremor Medication List - Last Reconciled 02/15/25 by Brian Collins PA-C ascorbic acid (vitamin C) 1,000 mg PO BID cholecalciferol (vitamin D3) 50 mcg PO DAILY divalproex 500 mg PO DAILY omega 9-bug-eil-fish oil 1,200 (144-216) mg (Fish Oil) 2 caps PO DAILY oxcarbazepine 300 mg BID Tobacco use date assessed: 02/15/25 Dental Screening Dental Screen Date: 02/15/25 Did you have a dental visit in the last 12 months?: Yes Did you have a dental problem in the last 6 months where you did not have access to dental care?: No Was dental information given to patient?: Patient has dentist HPI pe HPI Details Patient is a 25 year-old male here today for annual physical.? Patient's past medical history significant moderate to severe bipolar disorder, depression, obesity. .. Bipolar disorder:? Is followed by a psychiatrist ( Shamir Patrick) and continues on mental health medications to stabilize his mood in his adjusting doses. Has gained a significant amount of weight since last office visit. 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 .. Right shoulder tendinopathy : The patient experiences persistent shoulder pain that has not improved with physical therapy. An x-ray was performed, showing no abnormalities, and referral to an photogrammetric compilation specialist was recommended for further evaluation, including possible MRI or cortisone injection. .. Elevated Liver enzymes: Have noted elevation in his liver enzymes since May of 2024. Unclear if this is related to his weight gain versus his psychiatric medication. PLAN: Will send for ultrasound of abdomen to evaluate for fatty liver .. Class 2 Obesity:? Patient has gained significant weight since last office visit, today's BMI at 39. He does understand his BMI is over 30, has been trying to be more physically active to reduce weight. .. Elevated blood pressure reading--> The patient reports a history of elevated blood pressure readings in the clinical setting, with a current measurement of 158/98 mmHg, although home readings are typically around 120/80 mmHg. He denies alcohol, tobacco, or drug use, which are potential contributors to hypertension. . VAccine:? Up-to-date with tetanus vaccine, declines both COVID and flu vaccines Laboratory Tests 07/02/22 07/02/22 12:14 12:14 RBC 5.12 Creatinine 0.92 TSH 1.04 Laboratory Tests 07/02/23 10/29/23 02/12/25 04:30 10:28 12:57 WBC 11.5 H RBC 4.87 5.17 Creatinine 0.72 AST 38 H ALT 57 H 25-OH Vitamin D To mark 69.2 TSH 1.42 PFSH Medical History Acute respiratory failure Schizoaffective disorder, bipolar type Fibroepithelial polyp No known health problems Bipolar 1 disorder with moderate giuliana Depression Anxiety Surgical History S/P colonoscopy H/O endoscopy Family History Mother Alcohol abuse Mental problem Father Alcohol abuse Mental problem Melanoma Social History Household Members: Family Household Members Other:: mom and brother Housing: House Do you presently have visiting nurse or other home services: No Alcohol intake: current Alcohol intake frequency: a few times a month Alcohol type: hard liquor Comment: none Patient Tobacco Use Status: Never used Tobacco e-Cigarette/Vaping Use: Never Used Second Hand Smoke Exposure: No Substance Use Type: Marijuana service: No Current occupational status: unemployed and disabled 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 1. Little interest or pleasure in doing things: not at all 2. Feeling down, depressed, or hopeless: not at all 3. Trouble falling or staying asleep, or sleeping too much: not at all 4. Feeling tired or having little energy: not at all 5. Poor appetite or overeating: not at all 6. Feeling bad about yourself - or that you are a failure or have let yourself or your family down: not at all 7. Trouble concentrating on things, such as reading the newspaper or watching television: not at all 8. Moving or speaking so slowly that other people could have noticed. Or the opposite - being so fidgety or restless that you have been moving around a lot more than usual: not at all 9. Thoughts that you would be better off or of hurting yourself in some way: not at all Total score: 0 Depression Screening Interpretation: Negative Depression Screening Done: Yes 01950 - PHQ-9 Billing: Yes Source: Developed by Drs. Gino Shelton, Shari Duong, Héctor Alves and colleagues, with an educational allison from [employer]. Thrive Questionnaire Date Thrive assessed: 09/15/24 I am a: Patient What is your living situation today?: I have a steady place to live Within the past 12 months, did the food you bought not last and you didn't have the money to get more?: Often true Within the past 12 months, did you worry whether your food would run out before you got money to buy more?: Often true Do you have trouble paying for medicines?: Yes Do you have trouble getting transportation to medical appointments?: No Do you have trouble paying your heating and electricity bill?: No Do you have trouble taking care of your child, family member or friend?: I choose not to answer this question Do you have trouble with day-to-day activities such as bathing, preparing meals, shopping, managing finances, etc.?: I choose not to answer this question Are you currently unemployed and looking for a job?: I choose not to answer this question Are you interested in more education?: I choose not to answer this question Please select the resources that you would like help with: None Currently or been in a relationship where the following occur: I choose not to answer THRIVE Score: 2 AUDIT C Alcohol Use Questionnaire (AUDIT-C) 1. How often do you have a drink containing alcohol?: Never 3. How often do you have six or more drinks on one occasion?: Never Total Score: 0 OVIDIO-7 AMB Questionnaire OVIDIO-7 Date OVIDIO - 7 assessed: 09/15/24 Feeling nervous, anxious, or on edge: 0 = Not at all Not being able to stop or control worryin = Not at all Worrying too much about different things: 0 = Not at all Trouble relaxin = Not at all Being so restless that it is hard to sit still: 0 = Not at all Becoming easily annoyed or irritable: 0 = Not at all Feeling afraid as if something awful might happen: 0 = Not at all Total OVIDIO-7 score (0-4 normal; 5-9 mild; 10-14 moderate; 15-21 severe): 0 Source: Developed by Drs. Gino Shelton, Shari Duong, Héctor Alves and colleagues, with an educational allison from [employer]. OVIDIO-7 Assessment Billing OVIDIO-7 Assessment Tool: OVIDIO-7 Assessment 18969 Review of Systems Const Denies body aches, Denies chills, Denies excessive sweating, Denies fatigue, Denies fever(s) and Denies headache(s) Eyes Denies blurry vision ENT Denies dysphagia, Denies vertigo, Denies dizziness, Denies headache(s), Denies hearing loss and Denies tinnitus Card Denies chest pain, Denies chest pain with activity, Denies syncope, Denies irregular heart rhythm and Denies dyspnea Resp Denies chest congestion, Denies cough, Denies hemoptysis, Denies dyspnea and Denies wheezing GI Denies abdominal pain, Denies melena, Denies hematochezia, Denies coffee ground emesis, Denies dysphagia, Denies diarrhea, Denies nausea and Denies vomiting Denies difficulty urinating, Denies dysuria, Denies urinary frequency, Denies urinary hesitancy and Denies urinary urgency Musc Denies arthralgias, Denies limited range of motion, Denies muscle cramps and Denies muscle weakness Skin/Breast Denies rash and Denies skin ulcer Neuro Denies Abnormal speech present, Denies confusion, Denies vertigo, Denies dizziness, Denies syncope, Denies headache(s), Denies memory loss and Denies seizure-like activity Psych Denies anxiety, Denies confusion, Denies depression, Denies memory loss, Denies panic attacks and Denies paranoia Endo Denies excessive sweating, Denies fatigue, Denies flushing, Denies polydipsia and Denies polyuria Aller/Immun Denies wheezing Physical exam (Primary Care) Vital Signs: Last Vital Signs Temp 97.3 F 02/15/25 13:58 Pulse 81 02/15/25 13:58 BP 158/98 H 02/15/25 13:58 Pulse Ox 98 02/15/25 13:58 Oxygen Delivery Method Room Air 02/15/25 13:58 BMI result Body Mass Index 39.5 BMI Assessment/Plan discussion: High BMI High, discussed plan: lifestyle, weight reduction, dietary and physical activity Tobacco/Smoking Status: Tobacco use Status Tobacco use date assessed 02/15/25 02/15/25 14:02 Patient Tobacco Use Status Never used Tobacco 02/15/25 14:02 e-Cigarette/Vaping Use Never Used 02/15/25 14:02 PHQ-9: PHQ-9 Score PHQ-9: Total score 0 02/15/25 14:02 Depression Screening Interpretation: Negative Thrive Assessment: Date of Thrive Assessment Date Thrive assessed 09/15/24 02/15/25 14:02 Currently or been in a relationship where the following occur: I choose not to answer Const Other: Obese General: cooperative, comfortable, no acute distress, alert and awake; No confusion Orientation/consciousness: oriented to person, oriented to place, patient oriented x3 and No confusion HENMT Head: Yes normocephalic Ears: external ears normal and TM's normal bilaterally Face and sinus: No sinus tenderness Mouth: Normal oral and palatal mucosa present and tongue normal Teeth and gingiva: dentition normal and gingiva normal Throat: Yes posterior oropharynx normal, Yes tonsils normal and Yes uvula midline Eyes Conjunctivae: conjunctivae normal Sclerae: sclerae normal Pupils: Equal, round and reactive pupils present EOM: EOMs intact bilaterally Direct Ophthalmoscopy: No no photophobia Neck Neck: Yes no lymphadenopathy, No tender and Yes no JVD Thyroid: Thyroid normal Carotids: no bruits Chest Chest palpation & inspection: no tenderness Resp Effort & Inspection: normal respiratory effort, no audible wheezes, not labored and no stridor Auscultation: no crackles, no rales, no rhonchi and no wheezes Cardio Jugular venous distension: no JVD Rate: regular rate, not bradycardic and not tachycardic Rhythm: regular rhythm Bruits: no carotid bruits Peripheral pulses: Peripheral pulses 2+ throughout GI Inspection: Yes normal to inspection, No abdominal wall ecchymosis and No visible herniation Palpation (GI): Soft to palpation, nontender, no guarding, not rigid and No hepatosplenomegaly present Auscultation: normoactive bowel sounds General: Yes no CVA tenderness Back/Spine/Pelvis Back: no CVA tenderness and No back tenderness Cervical Spine: cervical ROM normal Thoracic/Lumbar Spine: thoracic and lumbar spine normal to inspection, straight leg raise negative bilaterally, No thoraco-lumbar ROM limited and No lumbar spinal tenderness Skin Lesions: no lesions Rashes: no rashes Wounds: no wounds Neuro General: oriented to person, oriented to place, patient oriented x3, CN's II-XI intact bilaterally and No confusion Cranial nerves: Yes Equal, round and reactive pupils present and Yes Normal accommodation reflex present Cognition (Neuro): normal cognition Speech: No Abnormal speech present Gait exam (Neuro): Normal gait present Motor exam (neuro): 5/5 motor strength present throughout Extrem Other: RIGHT SHOULDER: NEAR FULL RANGE OF MOTION, HAS REPORTED PAIN WITH OVERHEAD MOVEMENTS OF HIS RIGHT UPPER EXTREMITY, NEGATIVE EMPTY CAN AND CHOW TESTS Right upper extremity: full ROM; no cyanosis Left upper extremity: full ROM; no cyanosis Right lower extremity: no edema Left lower extremity: no edema Psych Appearance: grossly normal Mental Status: mental status grossly normal Affect: normal affect Attitude: cooperative Thought process: Normal thought process present Coding Level of Care Code Est Pt Prev Care 18-39y([id number]) Diagnoses Annual physical exam Z00.00 Bipolar 1 disorder with moderate giuliana F31.12 Class 2 obesity E66.812 Elevated liver enzymes R74.8 Right shoulder tendinitis M77.8 Additional Codes OVIDIO-7 Assessment Billing - OVIDIO-7 Assessment Tool: OVIDIO-7 Assessment 62575 ([id number]) PHQ-9 - 08541 - PHQ-9 Billing: Yes ([id number]) Assessment & Plan Assessment & Plan (1) Annual physical exam: Code(s): Z00.00 - Encounter for general adult medical examination without abnormal findings Category: Medical Plan: As per HPI (2) Bipolar 1 disorder with moderate giuliana: Code(s): F31.12 - Bipolar disorder, current episode manic without psychotic features, moderate Category: Medical Plan: Patient continues to follow a mental health therapist and psychiatrist in his making med changes to help him with his bipolar disorder. Has gained a significant amount of weight since last office visit likely related to his psychiatric medication. (3) Class 2 obesity: Code(s): E66.812 - Obesity, class 2 Category: Medical Plan: Patient does understand his BMI is over 35 and will try to work on being more physically active and adapt to better eating habits to reduce his weight. He is working with a psychiatrist about managing his mental health and reducing some of his doses a psychiatric medication (4) Elevated liver enzymes: Code(s): R74.8 - Abnormal levels of other serum enzymes Category: Medical Plan: An ultrasound of the liver will be ordered to assess for fatty liver disease due to consistently elevated liver enzymes. The patient is encouraged to increase physical activity to aid in weight management and improve mental health, with a suggestion to return to previous exercise routines (5) Right shoulder tendinitis: Code(s): M77.8 - Other enthesopathies, not elsewhere classified Category: Medical Plan: Patient has done full round of physical therapy for his right shoulder tendinitis though was not gotten any better. He has no reported injury to his right shoulder. The patient will be referred to an photogrammetric compilation specialist for further evaluation of persistent shoulder pain, with consideration for MRI or cortisone injection if deemed necessary. Orders: Orders Comprehensive [place]. Panel Fast Today R74.8 - Abnormal levels of other serum enzymes TSH reflex Free T4 Today E66.812 - Obesity, class 2 Complete Blood Count no Diff Today R74.8 - Abnormal levels of other serum enzymes US abdomen complete Today R74.8 - Abnormal levels of other serum enzymes Referrals Orthopedics Referral M77.8 - Other enthesopathies, not elsewhere classified
--- OUTSIDE RECORDS SUMMARY | 2025-02-15 18:26 | XMS_ITS | Patient Health Record ---
[facility] Address [address] [place] [address] Care Team Providers Care Injection Moulding Machine Operator Name Role Phone Brian Collins Primary Care Provider Unavail Sis Edmonds Unavailable [phone] Allergies No Known Allergies Reason For Referral No Information Medications Medication SIG (Take, Route, Frequency, Duration) Notes Start Date End Date Status lamoTRIgine 200 MG 1 tablet Orally Once a day Active OXcarbazepine 300 MG 1 tablet Orally Twi ce a day Active [place] Carbonate 600 MG 1 capsule Orall y Once a day 900 mg PM Active Night Splint AFO - L1930 1 wear at rest; Duration: 30 days Active Social History Tobacco Use: [...] Insured Coverage Start Date Coverage End Date [facility] [employer] Claims [address] [place] [address] [id number] Gino Mcdaniels Self - patient is the insured Medical (General) History Medical History History ICD Code Back,Hip,and Knee pain Broken bones Bipolar disorder
--- OUTSIDE RECORDS SUMMARY | 2025-02-15 18:26 | XMS_ITS | Clinical Summary ---
Author Organization [facility] Address [address] [place] [id number] Phone Care Team Providers Care Mechanical Ordnance Assembler Name Role Phone Nereyda Wright MD Primary Care Provider [phone] Allergies No known active allergies Medications No known medications Social History Tobacco Use Types Packs/Day Years Used Date Smoking Tobacco: Never Smokeless Tobacco: Never Alcohol Use Standard Drinks/Week Comments Yes 0 (1 standard drink = 0.6 oz pur e alcohol) occasional Education Answer Date Recorded Are you interested in more education? Not on vladimir e 09/18/2022 Are you concerned about learning? Not on file 09/18/2022 No 09/18/2022 No 09/18/2022 Digital Access Answer Date Recorded No 10/19/2022 No 10/19/2022 No 10/19/2022 Reliable internet access at home? Not on file 10/19/2022 Device with a working camera? Not on file Sex and Gender Information Value Date Recorded Sex Assigned at Male 10/23/2017 6:38 PM EDT Legal Sex Male 4:47 PM EDT Gender Identity Male 10/23/2017 6:38 PM EDT Sexual Orientation Straight 10/23/2017 6: 38 PM EDT Last Filed Vital Signs Vital Sign Reading Time Taken Comments Blood Pressure 143/66 10/23/2017 6:36 PM EDT Pulse 80 10/23/2017 6:36 PM EDT Temperature 37 C (98.6 F) 10/23/2017 6:36 PM EDT Respiratory Rate 16 10/23/2017 6:36 PM EDT Oxygen Saturation 96% 10/23/2017 6:36 PM EDT Inhaled Oxygen Concentration - - Weight 97.5 kg (215 lb) 10/23/2017 6:36 PM EDT Height 182.9 cm (6') 10/23/2017 6:36 PM EDT Body Mass Index 29.16 10/23/2017 6:36 PM EDT Plan of Treatment Not on file Medical Devices Not on file Insurance [employer] DIRECT [employer] DIRECT [employer] [place] [address] [place] [address] [employer] DIRECT [employer] [address] [place] [address] [employer] DIRECT [employer] DIRECT [employer] [address] [place] [address] [employer] DIRECT Care Teams Mechanical Ordnance Assembler Relationship Specialty Start Date End Date Nereyda Wright MD [address] [place] [id number] PCP - General Adolescent Medicine 10/23/17 Additional Source Comments The information contained in this document represents components of the legal health record. It is not the complete legal health record.[facility]
== END 2025-02-15 14:38 | disposition home or self-care (01) ==
LOC: HO.HMCH 13:57
PROVIDERS: PCP Physician Assistant; Visit Provider Physician Assistant
DX: Z00.00 Encounter for general adult medical examination without abnormal findings (principal); F31.12 Bipolar disorder, current episode manic without psychotic features, moderate; E66.812 Obesity, class 2; Z68.39 Body mass index [BMI] 39.0-39.9, adult; R74.8 Abnormal levels of other serum enzymes; M77.8 Other enthesopathies, not elsewhere classified

== ENCOUNTER → 2025-02-15 13:56 | Outpatient (BNVA) | payer OTHER, SELFPAY | PROVIDERS: PCP Physician Assistant; Visit Provider Physician Assistant | DX: Z00.00 Encounter for general adult medical examination without abnormal findings (principal); F31.12 Bipolar disorder, current episode manic without psychotic features, moderate; E66.812 Obesity, class 2; Z68.39 Body mass index [BMI] 39.0-39.9, adult; R74.8 Abnormal levels of other serum enzymes; M77.8 Other enthesopathies, not elsewhere classified; Z13.31 Encounter for screening for depression | CPT/HCPCS: 96127; 99395 ==